=== PATIENT | male | born 1945 | race Caucasian/White ===

== ENCOUNTER → 2017-12-16 | Outpatient (CLI) | payer BC ==
[~2017-12-16] MED LIST: ACET-1256 PO; ASPI81TA28 PO; BUPR-83 PO; BUTA1CAP17 PO; CALC600T36 PO; CHOL2000 PO; CLR10 PO; COEN200C17 PO; DICL-201 PO; DILT-115 PO; LPR50X PO; MULT-506 PO; OMEG10007 PO; ONDA4TAB10 SL; POTA10TA32 PO; PRLSR20 PO; REDCAP2 PO; SNG10 PO; SYMIN INH; TERA5CAP PO; TIZA4CAP PO; TOPI100T20 PO; VNTHFA/IN INH; VTME100 PO
[2017-12-16 13:57] LABS: BLOOD UREA NITROGEN 27 mg/dl (7-18); CREATININE 0.98 mg/dl (0.60-1.40)
== END | disposition home or self-care (01) ==
LOC: C.LAB 12:18
PROVIDERS: ATTEND Psychiatry & Neurology Neurology
DX: E11.9 Type 2 diabetes mellitus without complications (principal); R90.89 Other abnormal findings on diagnostic imaging of central nervous system

== ENCOUNTER 2021-03-01 14:47 | Inpatient (IN) ==
[2021-03-01] MEDS ORDERED: cefTRIAXone SODIUM 1,000 MG/50 ML BAG IV STA (15:12)
[2021-03-01] MEDS ORDERED: SODIUM CHLORIDE 0.9% 1000ML 2,000 ML IV ONE (15:12)
--- NOTE | 2021-03-01 15:21 | Emergency Department Note ---
Impression & Plan Sepsis, Pneumonia, Confusion ED Provider Note NAME: MANDI TILLMAN AGE: 75 SEX: M : 1945 ARRIVES VIA: Walk-In INFORMANT: Patient, ED PROVIDER(S): Rohith Knowles DO CHIEF COMPLAINT: Confusion, trouble walking HPI: Patient is a 75-year-old male who presents to ER for dizziness. Patient has been feeling weak and rundown for the past 5 days. Patient notes that he did fall and hit his head about 7 days ago. He had a mild headache then. He de nies any headache or change in vision. No neck pain. No chest pain shortness of breath. He admits to belly pain and nausea. Denies any dysuria urgency or frequency. No rashes or open wounds. He notes he cannot ambulate and he has to hold onto something as he feels so dizzy. ROS: See above HPI for pertinent positives & negatives. A total of 10 systems reviewed and were otherwise negative. PAST MEDICAL HISTORY:See Below PAST SURGICAL HISTORY:See Below FAMILY HISTORY:See Below SOCIAL HISTORY:See Below HOME MEDICATIONS:See Below ALLERGIES:See Below VITALS:See Below PHYSICAL EXAMINATION: GENERAL: Sitting up in bed, alert, well appearing, well nourished, no distress, non-toxic EYE EXAM: normal conjunctiva. PERRL and EOM's grossly intact. OROPHARYNX: no exudate, no erythema, lips, buccal mucosa, and tongue normal and mucous membranes are moist NECK: supple, no nuchal rigidity, no adenopathy, non-tender LUNGS: Clear to auscultation. Normal chest wall mechanics HEART: no murmurs, S1 normal and S2 normal ABDOMEN: abdomen soft, non-tender, normo-active bowel sounds, no masses, no rebound or guarding. BACK: Back is symmetrical on inspection and there is no deformity, no midline tenderness, no CVA tenderness. SKIN: no rashes and no bruising UPPER EXTREMITIES: upper extremities are grossly normal. LOWER EXTREMITIES: No pitting edema. NEURO EXAM: Normal sensorium, cranial nerves II-XII intact, normal speech, no weakness of arms, no weakness of legs. No drift. Finger to nose intact. Gross sensation intact. MEDICAL DECISION MAKING: Patient is a 75-year-old male who presents to the ER for confusion, weakness and fevers. IV was established blood was obtained. He is found to be tachycardic and febrile. Labs show no significant leukocytosis or anemia. INR was unremarkable. BMP along with LFTs bilirubin lactate and troponin was negative. CT head chest x-ray and CT abdomen pelvis were consistent with a right-sided pneumonia. He was given IV Rocephin fluids and azithromycin. Patient was updated bedside. Discussed the hospitalist admitted for further work-up. Triage Nursing notes reviewed. Limited review of prior medical records performed Vital Signs: reviewed and remarkable for HTN and fever Differential diagnosis: Differential diagnoses includes but is not limited to toxic, metabolic, infectious, traumatic, cardiac, neurologic, hematologic, psychiatric and inflammatory etiologies. ER treatment provided: See below Diagnostics interpreted by me: ECG: Sinus tachycardia rate of 104 with a first-degree AV block Poor baseline T wave inversion in the septal leads along with ST depressions which are new compared to previous Cardiac Monitoring: An order was placed for continuous cardiac monitoring. The monitor shows a rate of 82 with sinus rhythm. Laboratory studies: As stated above and show below. Imaging studies: CT abdomen pelvis is unremarkable Portable AP upright 1 view the chest shows right-sided pneumonia CT head was negative Consultation(s): Discussed with the hospitalist for further evaluation Procedures: none Critical Care: None Past Med/Surg History Medical History Arthritis Asthma Cognitive complaints Diabetes Diabetes mellitus, type 2 DIET MANAGED Hyperlipidemia Hypertension Hypertension Hypertension Lumbar radiculopathy Migraine Osteoarthritis Peripheral neuropathy SOB (shortness of breath) on exertion Tremor Type 2 diabetes mellitus Surgical History Cancer PROSTATE-REMOVAL 20 YRS AGO Fusion of spine CERVICAL H/O elbow surgery H/O prostatectomy History of bronchoscopy History of colonoscopy History of lobectomy of lung RIGHT MIDDLE LOBE-BENIGN History of surgery on arm LEFT ELBOW-TENDON SURG Status post lung surgery Family History Father Diabetes Cardiac disorder Unknown Hypertension Mother Cardiac disorder Social History Smoking Status: Former smoker Tobacco Type: Cigarettes Second Hand Exposure: No; Hx Alcohol Use: Yes Alcohol type: beer, wine and hard liquor Hx Substance Use: No Preferred Language: Indian Communication Ability: Effective Maintenance Dispatcher Required: No Beliefs That Will Affect Care: None Current Living Situation: Spouse Feels Safe at Home: Yes Assistive Devices: Cane, Glasses and Hearing Aid - Bilateral Allergies Allergies Allergy/AdvReac Type Severity Reaction Status Date / Time Penicillins Allergy Severe SWELLING, Verified 03/01/21 17:28 TROUBLE BREATHING lovastatin Allergy Unknown PT DOESN'T Verified 03/01/21 17:28 REMEMBER REACTION-NAUSEA? simvastatin Allergy Unknown PT DOESN'T Verified 03/01/21 17:28 REMEMBER REACTION-NAUSEA? lisinopril Allergy Unknown Verified 03/01/21 17:28 Etsrtev-Vlr-Asa Reductase AdvReac Unknown NAUSEA Verified 03/01/21 17:28 Inhibitor diazepam AdvReac lethargy Verified 03/01/21 17:28 losartan AdvReac Dizziness Verified 03/01/21 17:28 fluvastatin Allergy Unknown Unknown Uncoded 03/01/21 17:28 Mevacor TABS Allergy Unknown Unknown Uncoded 03/01/21 17:28 Home Meds Home Medications Medication Instructions Recorded Confirmed Fish Oil Cap 1,400 mg PO QID 03/01/21 03/01/21 atorvastatin 10 mg PO HS 03/01/21 03/01/21 budesonide-formoterol 2 puff INHALATION BID 03/01/21 03/01/21 bupropion HCl 100 mg PO BID 03/01/21 03/01/21 coenzyme Q10 400 mg PO DAILY 03/01/21 03/01/21 diltiazem HCl 240 mg PO DAILY 03/01/21 03/01/21 docusate sodium 100 mg PO BID PRN 03/01/21 03/01/21 ezetimibe [Zetia] 5 mg PO DAILY 03/01/21 03/01/21 gabapentin 200 mg PO HS 03/01/21 03/01/21 loratadine [Claritin] 10 mg PO DAILY PRN 03/01/21 03/01/21 metoprolol tartrate 50 mg PO BID 03/01/21 03/01/21 montelukast 10 mg PO DAILY 03/01/21 03/01/21 multivitamin 1 tab PO DAILY 03/01/21 03/01/21 omeprazole 40 mg PO DAILY 03/01/21 03/01/21 spironolactone 12.5 mg PO QPM 03/01/21 03/01/21 spironolactone 25 mg PO QAM 03/01/21 03/01/21 terazosin 10 mg PO HS 03/01/21 03/01/21 tizanidine 4 mg PO QID PRN 03/01/21 03/01/21 vitamin E 400 unit PO DAILY 03/01/21 03/01/21 Results & Data (ED) Vital Signs Vital Signs - 24 hr 03/01/21 14:50 03/01/21 15:04 03/01/21 15:15 Temperature 38.2 C H Temperature Source Temporal Artery Scan Pulse Rate 83 106 H Pulse Rate from SpO2 Sensor Respiratory Rate 18 20 Respiratory Effort / Characteristics Non-Labored Spontaneous Non-Labored Spontaneous Respiratory Depth Normal Respiratory Pattern Regular Blood Pressure 163/70 H 176/96 H Blood Pressure Mean 101 122 Blood Pressure Position Sitting Pulse Oximetry 93 97 Oxygen Delivery Method Room Air Room Air Sepsis Recent Fever Within 48 Hours No Sepsis New/Unexplained Change in Mental Status N/A Sepsis Action Taken by Nursing No Action Required 03/01/21 15:41 03/01/21 15:43 03/01/21 16:33 Temperature Temperature Source Pulse Rate 105 H Pulse Rate from SpO2 Sensor 105 H Respiratory Rate 28 H Respiratory Effort / Characteristics Non-Labored Spontaneous Respiratory Depth Respiratory Pattern Blood Pressure 179/106 H Blood Pressure Mean 130 Blood Pressure Position Pulse Oximetry 97 94 Oxygen Delivery Method Room Air Sepsis Recent Fever Within 48 Hours Sepsis New/Unexplained Change in Mental Status Sepsis Action Taken by Nursing 03/01/21 16:35 03/01/21 17:00 03/01/21 17:02 Temperature 38.2 C H Temperature Source Oral Pulse Rate 107 H 106 H 107 H Pulse Rate from SpO2 Sensor 106 H 107 H 107 H Respiratory Rate 20 20 19 Respiratory Effort / Characteristics Respiratory Depth Respiratory Pattern Blood Pressure 166/117 H 162/99 H 162/99 H Blood Pressure Mean 133 120 120 Blood Pressure Position Pulse Oximetry 93 92 91 Oxygen Delivery Method Sepsis Recent Fever Within 48 Hours Sepsis New/Unexplained Change in Mental Status Sepsis Action Taken by Nursing Laboratory Data Result diagrams: 03/01/21 15:15 03/01/21 15:15 Lab Results 03/01/21 03/01/21 03/01/21 Range/Units 15:15 15:15 15:15 WBC 9.98 (4.8-10.8) K/uL RBC 4.17 L (4.7-6.1) M/uL Hgb 14.1 (14.0-18.0) g/dL Hct 40.5 L (42-52) % MCV 97.1 (80-100) fL MCH 33.8 (25-34) pg MCHC 34.8 (32-36) g/dL RDW Std Deviation 46.7 H (36.4-46.3) fL RDW Coeff of Roni 13.2 (11.5-14.5) % Plt Count 188 (130-400) K/uL MPV 10.7 H (7.4-10.4) fL Immature Gran % (Auto) 0.2 % Neut % (Auto) 79.4 % Lymph % (Auto) 6.1 % Chilton % (Auto) 13.9 % Eos % (Auto) 0.2 % Baso % (Auto) 0.2 % Neut # (Auto) 7.92 H (1.4-6.5) K/uL Lymph # (Auto) 0.61 L (1.2-3.4) K/uL Chilton # (Auto) 1.39 H (0.11-0.59) K/uL Eos # (Auto) 0.02 (0-0.5) K/uL Baso # (Auto) 0.02 (0-0.2) K/uL Immature Gran # (Auto) 0.02 (0.00-0.02) K/uL PT 10.3 (9.0-12.0) Seconds INR 1.0 (0.9-1.1) APTT 27.5 (21.0-31.0) Seconds PTT Ratio 1.0 Sodium 134 L (136-145) mmol/L Potassium 3.9 (3.5-5.1) mmol/L Chloride 100 (98-107) mmol/L Carbon Dioxide 25 (21-32) mmol/L Anion Gap 10.0 (3-11) BUN 16 (7-18) mg/dl Creatinine 0.83 (0.6-1.4) mg/dl Est Cr Clr Drug Dosing Not Reportable Est GFR ( Amer) 100.5 ml/min Est GFR (Non-Af Amer) 86.7 ml/min BUN/Creatinine Ratio 19.2 (10-20) Glucose 147 H (70-99) mg/dl Lactate (0.4-2.0) mmol/L Calcium 9.1 (8.5-10.1) mg/dl Magnesium 1.8 (1.8-2.4) mg/dl Total Bilirubin 0.9 (0.2-1) mg/dl AST 18 (15-37) U/L ALT 32 (12-78) U/L Alkaline Phosphatase 48 (45-117) U/L Troponin I < 0.015 (0-0.045) ng/ml Total Protein 7.4 (6.4-8.2) gm/dl Albumin 3.3 L (3.4-5.0) gm/dl Globulin 4.1 H (2.5-4.0) gm/dl Albumin/Globulin Ratio 0.8 L (0.9-2) Procalcitonin (0-0.5) ng/ml Urine Color Urine Appearance (Clear) Urine pH (4.5-7.5) Ur Specific Hagan (1.000-1.030) Urine Protein (Negative) Urine Glucose (UA) (Negative) Urine Ketones (Negative) Urine Blood (Negative) Urine Nitrite (Negative) Urine Bilirubin (Negative) Urine Urobilinogen (Negative) Ur Leukocyte Esterase (Negative) Urine WBC (Auto) (0-5) /hpf Urine RBC (Auto) (0-4) /hpf U Hyaline Cast (Auto) (0-5) /lpf U Epithel Cells (Auto) (0-5) /lpf Urine Bacteria (Auto) (Negative) COVID-19 Eval Order SARS-CoV-2 (PCR) (Negative) 03/01/21 03/01/21 03/01/21 Range/Units 15:15 15:15 15:24 WBC (4.8-10.8) K/uL RBC (4.7-6.1) M/uL Hgb (14.0-18.0) g/dL Hct (42-52) % MCV (80-100) fL MCH (25-34) pg MCHC (32-36) g/dL RDW Std Deviation (36.4-46.3) fL RDW Coeff of Roni (11.5-14.5) % Plt Count (130-400) K/uL MPV (7.4-10.4) fL Immature Gran % (Auto) % Neut % (Auto) % Lymph % (Auto) % Chilton % (Auto) % Eos % (Auto) % Baso % (Auto) % Neut # (Auto) (1.4-6.5) K/uL Lymph # (Auto) (1.2-3.4) K/uL Chilton # (Auto) (0.11-0.59) K/uL Eos # (Auto) (0-0.5) K/uL Baso # (Auto) (0-0.2) K/uL Immature Gran # (Auto) (0.00-0.02) K/uL PT (9.0-12.0) Seconds INR (0.9-1.1) APTT (21.0-31.0) Seconds PTT Ratio Sodium (136-145) mmol/L Potassium (3.5-5.1) mmol/L Chloride (98-107) mmol/L Carbon Dioxide (21-32) mmol/L Anion Gap (3-11) BUN (7-18) mg/dl Creatinine (0.6-1.4) mg/dl Est Cr Clr Drug Dosing Est GFR ( Amer) ml/min Est GFR (Non-Af Amer) ml/min BUN/Creatinine Ratio (10-20) Glucose (70-99) mg/dl Lactate 1.0 (0.4-2.0) mmol/L Calcium (8.5-10.1) mg/dl Magnesium (1.8-2.4) mg/dl Total Bilirubin (0.2-1) mg/dl AST (15-37) U/L ALT (12-78) U/L Alkaline Phosphatase (45-117) U/L Troponin I (0-0.045) ng/ml Total Protein (6.4-8.2) gm/dl Albumin (3.4-5.0) gm/dl Globulin (2.5-4.0) gm/dl Albumin/Globulin Ratio (0.9-2) Procalcitonin < 0.05 (0-0.5) ng/ml Urine Color Dark Yellow Urine Appearance Clear (Clear) Urine pH 7.0 (4.5-7.5) Ur Specific Hagan 1.024 (1.000-1.030) Urine Protein 1+ H (Negative) Urine Glucose (UA) Negative (Negative) Urine Ketones Trace H (Negative) Urine Blood Negative (Negative) Urine Nitrite Negative (Negative) Urine Bilirubin Negative (Negative) Urine Urobilinogen Positive H (Negative) Ur Leukocyte Esterase Negative (Negative) Urine WBC (Auto) 1-5 (0-5) /hpf Urine RBC (Auto) 5-10 H (0-4) /hpf U Hyaline Cast (Auto) 0 (0-5) /lpf U Epithel Cells (Auto) 5-10 H (0-5) /lpf Urine Bacteria (Auto) Negative (Negative) COVID-19 Eval Order SARS-CoV-2 (PCR) (Negative) 03/01/21 03/01/21 Range/Units 15:45 15:45 WBC (4.8-10.8) K/uL RBC (4.7-6.1) M/uL Hgb (14.0-18.0) g/dL Hct (42-52) % MCV (80-100) fL MCH (25-34) pg MCHC (32-36) g/dL RDW Std Deviation (36.4-46.3) fL RDW Coeff of Roni (11.5-14.5) % Plt Count (130-400) K/uL MPV (7.4-10.4) fL Immature Gran % (Auto) % Neut % (Auto) % Lymph % (Auto) % Chilton % (Auto) % Eos % (Auto) % Baso % (Auto) % Neut # (Auto) (1.4-6.5) K/uL Lymph # (Auto) (1.2-3.4) K/uL Chilton # (Auto) (0.11-0.59) K/uL Eos # (Auto) (0-0.5) K/uL Baso # (Auto) (0-0.2) K/uL Immature Gran # (Auto) (0.00-0.02) K/uL PT (9.0-12.0) Seconds INR (0.9-1.1) APTT (21.0-31.0) Seconds PTT Ratio Sodium (136-145) mmol/L Potassium (3.5-5.1) mmol/L Chloride (98-107) mmol/L Carbon Dioxide (21-32) mmol/L Anion Gap (3-11) BUN (7-18) mg/dl Creatinine (0.6-1.4) mg/dl Est Cr Clr Drug Dosing Est GFR ( Amer) ml/min Est GFR (Non-Af Amer) ml/min BUN/Creatinine Ratio (10-20) Glucose (70-99) mg/dl Lactate (0.4-2.0) mmol/L Calcium (8.5-10.1) mg/dl Magnesium (1.8-2.4) mg/dl Total Bilirubin (0.2-1) mg/dl AST (15-37) U/L ALT (12-78) U/L Alkaline Phosphatase (45-117) U/L Troponin I (0-0.045) ng/ml Total Protein (6.4-8.2) gm/dl Albumin (3.4-5.0) gm/dl Globulin (2.5-4.0) gm/dl Albumin/Globulin Ratio (0.9-2) Procalcitonin (0-0.5) ng/ml Urine Color Urine Appearance (Clear) Urine pH (4.5-7.5) Ur Specific Hagan (1.000-1.030) Urine Protein (Negative) Urine Glucose (UA) (Negative) Urine Ketones (Negative) Urine Blood (Negative) Urine Nitrite (Negative) Urine Bilirubin (Negative) Urine Urobilinogen (Negative) Ur Leukocyte Esterase (Negative) Urine WBC (Auto) (0-5) /hpf Urine RBC (Auto) (0-4) /hpf U Hyaline Cast (Auto) (0-5) /lpf U Epithel Cells (Auto) (0-5) /lpf Urine Bacteria (Auto) (Negative) COVID-19 Eval Order Covid19 at [facility] SARS-CoV-2 (PCR) NEGATIVE (Negative) Administered Medications Discontinued Medications Acetaminophen (Acetaminophen 500 Mg Tab) 1,000 mg PO NOW STA Stop: 03/01/21 17:05 Last Admin: 03/01/21 17:06 Dose: 1,000 mg Documented by: [id number] Azithromycin (Azithromycin 250 Mg Tab) 500 mg PO NOW ONE Stop: 03/01/21 16:16 Last Admin: 03/01/21 16:31 Dose: 500 mg Documented by: [id number] Sodium Chloride (Nss 1000ml) 2,000 mls @ 999 mls/hr IV .Q2H1M ONE Stop: 03/01/21 17:12 Last Infusion: 03/01/21 17:34 Dose: 0 mls/hr Documented by: [id number] Admin: 03/01/21 16:29 Dose: 999 mls/hr Documented by: [id number] Ceftriaxone Sodium (Rocephin) 1,000 mg in 50 mls @ 100 mls/hr IV NOW STA Stop: 03/01/21 15:41 Last Infusion: 03/01/21 17:03 Dose: 0 mls/hr Documented by: [id number] Admin: 03/01/21 16:31 Dose: 100 mls/hr Documented by: [id number] Ioversol (Optiray 320 100ml) 90 ml IV ONCE ONE Stop: 03/01/21 16:10 Last Admin: 03/01/21 16:10 Dose: 90 ml Documented by: [id number] Imaging Data Radiologist's Impression: Abdomen/Pelvis CT 03/01/21 15:12 CT abd pelvis IV con only CLINICAL HISTORY: fever COMPARISON STUDY: None. TECHNIQUE: A dose lowering technique was utilized adhering to the principles of ALARA. CT DOSE: 996.31 mGy.cm FINDINGS: Lower chest: Partially visualized heterogeneous opacity within right middle lobe might represent pneumonia or neoplasm. There is 7 mm nodule is seen within the right middle lobe (3/1). Evaluation of lung parenchyma is limited due to motion artifact. Liver: The contrast-enhanced liver is normal in size, contour, and attenuation. There is no intrahepatic biliary ductal dilatation. The hepatic veins and portal veins are patent. Gallbladder: Gallbladder is contracted which slightly limits evaluation. Distal aspect of gallbladder might content slightly peripherally calcified calculus and minimal surrounding fat stranding which might represent developing cholecystitis. Spleen: Normal in size and attenuation. Pancreas: Unremarkable. Adrenal glands: Unremarkable. Kidneys: There is symmetric renal cortical enhancement. The kidneys are normal in size without hydronephrosis. Nonobstructive nephrolithiasis is seen bilaterally. Bowel: Small hiatal hernia is seen. Bowel loops are nondilated. Appendix shows normal morphology and gas filled. Moderate amount of stool is seen within colonic loops. Peritoneum: There is no intraperitoneal free air or abdominal ascites. Vasculature: Abdominal aorta is normal in caliber, tortuous with extensive partially calcified plaques within its wall. Adenopathy: None. Pelvic viscera: Mild thickening urinary bladder wall. Prostate gland is surgically absent. Skeletal structures: Multilevel degenerative changes of the spine. Sclerotic lesion is seen within L3 vertebral body and might represent enostosis or blastic metastasis. Anterolisthesis of L5 on S1 is seen. IMPRESSION: 1. Infiltrative lesion within the right middle lobe which might represent pneumonia however 7 mm nodule could be sign of neoplastic process. Short-term follow-up with CT of the chest in 4-6 weeks is recommended to document resolution. 2. Contracted gallbladder with possible calculus and probably developing cholecystitis. Further evaluation with right upper quadrant ultrasound might be considered for further characterization. 3. Small hiatal hernia. 4. Nonobstructive nephrolithiasis is seen bilaterally. 5. Normal appendix. 6. Status post prostatectomy. Mild thickening of urinary bladder wall. Questionable sclerotic lesion within the lumbar spine might represent blastic metastasis or enostosis. Please correlate above-mentioned findings was prior history. 7. Atherosclerosis ACT 112: Negative or not required by law. The above report was generated using voice recognition software. It may contain grammatical, syntax or spelling errors. Electronically signed by: Allison Hugo DO 03/01/2021 4:47 PM Chest X-Ray 03/01/21 15:12 XR chest 1V portable CLINICAL HISTORY: SEPSIS COMPARISON STUDY: None FINDINGS: No pneumothorax. No pleural effusion. Linear atelectasis is seen at the left base. Hazy opacity seen involving right mid to lower lung region and might represent pneumonia. Cardiomediastinal silhouette is within normal limits in size. No significant pulmonary vascular congestion.. Osseous structures: Mild degenerative changes of the spine. IMPRESSION: 1. Infiltrative lesion involving the right mid to lower lung likely represent pneumonia. 2. Atelectasis at the left base. ACT 112: Negative or not required by law. The above report was generated using voice recognition software. It may contain grammatical, syntax or spelling errors. Electronically signed by: Allison Hugo DO 03/01/2021 3:[address] 03/01/21 15:12 CT head/brain wo con CLINICAL HISTORY: fall COMPARISON STUDY: No previous studies for comparison. TECHNIQUE: Axial CT of the brain is performed from the vertex to the skull base. IV contrast was not administered for this examination. A dose lowering technique was utilized adhering to the principles of ALARA. CT DOSE: 537.48 mGy.cm FINDINGS: No acute intracranial hemorrhage, no midline shift or space occupying lesions. Hannah-white matter differentiation is preserved. There are patchy white matter hypodensities likely on a small vessel basis. Atrophic changes of brain parenchyma are seen and associated with ex vacuo dilatation of ventricles. No acute depressed skull fracture seen. Visualized paranasal sinuses and mastoid air cells are patent and well-aerated. IMPRESSION: No acute intracranial hemorrhage, no midline shift or space occupying lesions. Chronic small vessel ischemia. Atrophic changes of brain parenchyma associated with ex vacuo dilatation of ventricles. ACT 112: Negative or not required by law. The above report was generated using voice recognition software. It may contain grammatical, syntax or spelling errors. Electronically signed by: Allison Hugo DO 03/01/2021 4:16 PM Discharge Plan Visit Data Chief Complaint: Neuro Symptoms/Deficit Stated Complaint: DIZZY,LACK OF BALANCE,WEAK ED Provider: Rohith Knowles Discharge Problem: Sepsis, Pneumonia, Confusion Discharge Problem: Sepsis Qualifiers: Sepsis type: sepsis due to unspecified organism Sepsis acute organ dysfunction status: unspecified Qualified Code(s): A41.9 - Sepsis, unspecified organism Pneumonia Qualifiers: Pneumonia type: due to unspecified organism Laterality: unspecified laterality Lung location: unspecified part of lung Qualified Code(s): J18.9 - Pneumonia, unspecified organism
[2021-03-01 15:35] LABS: Basophils # (auto) 0.02 K/uL (0-0.2); Basophils % (auto) 0.2 %; Eosinophils # (auto) 0.02 K/uL (0-0.5); Eosinophils % (auto) 0.2 %; Hematocrit (blood only) 40.5 % (42-52); Hemoglobin 14.1 g/dL (14.0-18.0); Immature Granulocytes # (auto) 0.02 K/uL (0.00-0.02); Immature Granulocytes % (auto) 0.2 %; Lymphocytes # (auto) 0.61 K/uL (1.2-3.4); Lymphocytes % (auto) 6.1 %; Mean Corpuscular Hemoglobin 33.8 pg (25-34); Mean Corpuscular Hgb Conc 34.8 g/dL (32-36); Mean Corpuscular Volume 97.1 fL (80-100); Mean Platelet Volume 10.7 fL (7.4-10.4); Monocytes # (auto) 1.39 K/uL (0.11-0.59); Monocytes % (auto) 13.9 %; Neutrophils # (auto) 7.92 K/uL (1.4-6.5); Neutrophils % (auto) 79.4 %; Platelet Count 188 K/uL (130-400); RDW Coefficient of Variation 13.2 % (11.5-14.5); RDW Standard Deviation 46.7 fL (36.4-46.3); Red Blood Count 4.17 M/uL (4.7-6.1); White Blood Count 9.98 K/uL (4.8-10.8)
[2021-03-01 15:46] LABS: Partial Thromboplastin Time 27.5 Seconds (21.0-31.0); Prothrombin Time 10.3 Seconds (9.0-12.0)
[2021-03-01 15:49] LABS: Appearance Urine Clear (Clear); Bacteria Urine Automated Negative (Negative); Bilirubin Urine Negative (Negative); Blood Urine Negative (Negative); Cast Urine Automated 0 /lpf (0-5); Color Urine Dark Yellow; Glucose Urine UA Negative (Negative); Ketones Urine Trace (Negative); Leukocyte Esterase Urine Negative (Negative); Nitrite Urine Negative (Negative); Protein Urine 1+ (Negative); Specific Gravity Urine 1.024 (1.000-1.030); Urobilinogen Urine Positive (Negative)
--- NOTE | 2021-03-01 15:49 | XRay Report ---
XR chest 1V portable CLINICAL HISTORY: SEPSIS COMPARISON STUDY: None FINDINGS: No pneumothorax. No pleural effusion. Linear atelectasis is seen at the left base. Hazy opacity seen involving right mid to lower lung conchita on and might represent pneumonia. Cardiomediastinal silhouette is within normal limits in size. No significant pulmonary vascular congestion.. Osseous structures: Mild degenerative changes of the spine. IMPRESSION: 1. Infiltrative lesion involving the right mid to lower lung likely represent pneumonia. 2. Atelectasis at the left base. ACT 112: Negative or not required by law. The above report was generated using voice recognition software. It may contain grammatical, syntax o r spelling errors. Electronically signed by: Allison Hugo DO 03/01/2021 3:48 PM
[2021-03-01 15:57] LABS: Alanine Aminotransferase 32 U/L (12-78); Albumin Level 3.3 gm/dl (3.4-5.0); Aspartate Aminotransferase 18 U/L (15-37); BUN Creatinine Ratio 19.2 (10-20); Blood Urea Nitrogen 16 mg/dl (7-18); Calcium 9.1 mg/dl (8.5-10.1); Carbon Dioxide 25 mmol/L (21-32); Chloride 100 mmol/L (98-107); Est GFR (African American) 100.5 ml/min; Est GFR (Non-African American) 86.7 ml/min; Glucose 147 mg/dl (70-99); Magnesium 1.8 mg/dl (1.8-2.4); Potassium 3.9 mmol/L (3.5-5.1); Sodium 134 mmol/L (136-145)
[2021-03-01 16:02] LABS: Albumin Globulin Ratio 0.8 (0.9-2); Alkaline Phosphatase 48 U/L (45-117); Bilirubin,Total 0.9 mg/dl (0.2-1); Globulin 4.1 gm/dl (2.5-4.0); Total Protein 7.4 gm/dl (6.4-8.2); Troponin I < 0.015 ng/ml (0-0.045)
[2021-03-01] MEDS ORDERED: OPTIRAY 320 100ml IV ONE (16:09)
[2021-03-01] MEDS ORDERED: AZITHROMYCIN 250 MG TAB PO ONE (16:15)
--- NOTE | 2021-03-01 16:18 | CT Scan Report ---
CT head/brain wo con CLINICAL HISTORY: fall COMPARISON STUDY: No previous studies for comparison. TECHNIQUE: Axial CT of the brain is performed from the vertex to the skull base. IV contrast was not administered for this examination. A dose lowering technique was utilized adhering to the principles of ALARA. CT DOSE: 537.48 mGy.cm FINDINGS: No acute intracranial hemorrhage, no midline shift or space occupying lesions. Hannah-white matter differentiation is preserved. There are patchy white matter hypodensities likely on a small vessel basis. Atrophic changes of brain parenchyma are seen and associated with ex vacuo dilatation of ventricles. No acute depressed skull fracture seen. Visualized paranasal sinuses and mastoid air cells are patent and well-aerated. IMPRESSION: No acute intracranial hemorrhage, no midline shift or space occupying lesions. Chronic small vessel ischemia. Atrophic changes of brain parenchyma associated with ex vacuo dilatation of ventricles. ACT 112: Negative or not required by law. The above report was generated using voice recognition software. It may contain grammatical, syntax o r spelling errors. Electronically signed by: Allison Hugo DO 03/01/2021 4:16 PM
--- NOTE | 2021-03-01 16:48 | CT Scan Report ---
CT abd pelvis IV con only CLINICAL HISTORY: fever COMPARISON STUDY: None. TECHNIQUE: A dose lowering technique was utilized adhering to the principles of ALARA. CT DOSE: 996.31 mGy.cm FINDINGS: Lower chest: Partially visualized heterogeneous opacity within right middle lobe might represent pneu monia or neoplasm. There is 7 mm nodule is seen within the right middle lobe (3/1). Evaluation of sia g parenchyma is limited due to motion artifact. Liver: The contrast-enhanced liver is normal in size, contour, and attenuation. There is no intrahepa tic biliary ductal dilatation. The hepatic veins and portal veins are patent. Gallbladder: Gallbladder is contracted which slightly limits evaluation. Distal aspect of gallbladder might content slightly peripherally calcified calculus and minimal surrounding fat stranding which m ight represent developing cholecystitis. Spleen: Normal in size and attenuation. Pancreas: Unremarkable. Adrenal glands: Unremarkable. Kidneys: There is symmetric renal cortical enhancement. The kidneys are normal in size without hydron ephrosis. Nonobstructive nephrolithiasis is seen bilaterally. Bowel: Small hiatal hernia is seen. Bowel loops are nondilated. Appendix shows normal morphology and gas filled. Moderate amount of stool is seen within colonic loops. Peritoneum: There is no intraperitoneal free air or abdominal ascites. Vasculature: Abdominal aorta is normal in caliber, tortuous with extensive partially calcified plaque s within its wall. Adenopathy: None. Pelvic viscera: Mild thickening urinary bladder wall. Prostate gland is surgically absent. Skeletal structures: Multilevel degenerative changes of the spine. Sclerotic lesion is seen within L3 vertebral body and might represent enostosis or blastic metastasis. Anterolisthesis of L5 on S1 is s een. IMPRESSION: 1. Infiltrative lesion within the right middle lobe which might represent pneumonia however 7 mm no dule could be sign of neoplastic process. Short-term follow-up with CT of the chest in 4-6 weeks is r ecommended to document resolution. 2. Contracted gallbladder with possible calculus and probably developing cholecystitis. Further eval uation with right upper quadrant ultrasound might be considered for further characterization. 3. Small hiatal hernia. 4. Nonobstructive nephrolithiasis is seen bilaterally. 5. Normal appendix. 6. Status post prostatectomy. Mild thickening of urinary bladder wall. Questionable sclerotic lesion within the lumbar spine might represent blastic metastasis or enostosis. Please correlate above-ment ioned findings was prior history. 7. Atherosclerosis ACT 112: Negative or not required by law. The above report was generated using voice recognition software. It may contain grammatical, syntax o r spelling errors. Electronically signed by: Allison Hugo DO 03/01/2021 4:47 PM
[2021-03-01] MEDS ORDERED: ACETAMINOPHEN 500 MG TAB PO STA (17:04)
[2021-03-01] MEDS ORDERED: ACETAMINOPHEN 500 MG TAB ONE (17:05)
--- NOTE | 2021-03-01 17:12 | History & Physical Report ---
Date of Service March 01, 2021 Assessment & Plan (1) Sepsis: Meet sepsis criteria, present on admission Admit to monitored bed Patient not hypotensive, will treat with mild fluid hydration and Serum lactate is normal Suspect source is right sided CAP, as below (2) Pneumonia: Right middle/lower lobe pneumonia seen on chest x-ray, questionable 7 mm nodule seen on CT of the abdomen/pelvis Patient was given Rocephin and Zithromax in the emergency room, will continue this for now Blood and sputum culture if possible PT/OT for deconditioning Nasal cannula O2 to keep O2 sat above 92% (3) Type 2 diabetes mellitus: Noted on old record but patient is not on diabetic medications per recent patient neurology note Will check hemoglobin A1c Low sliding scale insulin with meals (4) Hypertension: Blood pressure elevated on presentation Continue diltiazem, metoprolol as ordered hold off on spironolactone for now both should be restarted prior to discharge (5) Hypercholesteremia: Patient is on Zetia, will continue (6) Migraine: Patient neurology notes reviewed, will continue gabapentin and topiramate as per outpatient dosing History of Present Illness Chief Complaint: generalized weakness Primary Care Provider: Dea Waldron PA-C This is a 75-year-old male with past medical history of type 2 diabetes mellitus, hypercholesterolemia, migraine, and mild memory loss that presents today complaining of generalized weakness. Patient is accompanied by his were both pleasant and good historians. Patient tells me has been having symptoms for approximately 7-8 days. He is unclear exactly when things started but at first noted some mild weakness. He was having difficulty ambulating long distances as he felt that his legs would give out on him. He denied any chest pain or palpitations but over the past few days noted some worsening dyspnea on exertion. He denied any shortness of breath at rest. He has weakness continue to worsen to the point that he actually had a fall 2 days ago, striking his head but he did not lose consciousness. He has had some mild cough with minimal production, mostly white sputum. Today the notes that the patient seemed to be transiently confused at times and was having trouble staying awake. The patient noted some dry heaves this morning as well, he does admit to some nausea and diminished appetite but denies vomiting, constipation, or diarrhea. Patient also started to display some rigors, the combination of the symptoms prompted the to bring the patient to the emergency room for further evaluation. At the time my evaluation, the patient was febrile at 38.2 C. His O2 sat was 92-93% on room air. He did appear to be rigorous and was given extra warmed galina nkets. He did not appear to be in any significant cardiopulmonary distress and was able to relate his history without much confusion. Allergies Allergy/AdvReac Type Severity Reaction Status Date / Time Penicillins Allergy Severe SWELLING, Verified 01/26/19 09:24 TROUBLE BREATHING lovastatin Allergy Unknown PT DOESN'T Verified 01/26/19 10:05 REMEMBER REACTION-NAUSEA? simvastatin Allergy Unknown PT DOESN'T Verified 01/26/19 10:05 REMEMBER REACTION-NAUSEA? Ozeexab-Hpu-Qay Reductase AdvReac Unknown NAUSEA Verified 01/26/19 09:24 Inhibitor fluvastatin Allergy Unknown Uncoded 06/06/19 10:56 Mevacor TABS Allergy Unknown Uncoded 06/06/19 10:56 Past Med/Surg History Medical History Arthritis Asthma Cognitive complaints Diabetes Diabetes mellitus, type 2 DIET MANAGED Hyperlipidemia Hypertension Hypertension Hypertension Lumbar radiculopathy Migraine Osteoarthritis Peripheral neuropathy SOB (shortness of breath) on exertion Tremor Type 2 diabetes mellitus Surgical History Cancer PROSTATE-REMOVAL 20 YRS AGO Fusion of spine CERVICAL H/O elbow surgery H/O prostatectomy History of bronchoscopy History of colonoscopy History of lobectomy of lung RIGHT MIDDLE LOBE-BENIGN History of surgery on arm LEFT ELBOW-TENDON SURG Status post lung surgery Family History Father Diabetes Cardiac disorder Unknown Hypertension Mother Cardiac disorder Social History Smoking Status: Former smoker Tobacco Type: Cigarettes Second Hand Exposure: No; Hx Alcohol Use: Yes Alcohol type: beer, wine and hard liquor Hx Substance Use: No Preferred Language: Frisian Communication Ability: Effective [employer] Required: No Beliefs That Will Affect Care: None Current Living Situation: Spouse Feels Safe at Home: Yes Assistive Devices: Cane, Glasses and Hearing Aid - Bilateral Review of Systems Constitutional: + fever, + chills, + body aches, + fatigue, + malaise and + weakness; no weight loss and no weight gain Eyes: as per Subjective / HPI Respiratory: + cough, + dyspnea on exertion and + sputum production; no chest congestion, no dyspnea, no hemoptysis, no pain on inspiration and no pain with cough Cardiovascular: no chest pain, no orthopnea, no palpitations, no lightheadedness and no edema Gastrointestinal: + early satiety and + nausea; no abdominal pain, no vomiting, no pain with swallowing, no dysphagia, no constipation and no diarrhea/loose stools Genitourinary: no dysuria, no difficulty urinating, no urinary frequency and no urinary hesitancy Musculoskeletal: no back pain, no neck pain, no joint pain, no stiffness and no myalgia Integumentary: no rash Neurologic: + unsteadiness and + generalized weakness; no gait abnormality and no falls Endocrine: + fatigue; no polydipsia and no polyphagia Physical Exam Constitutional: cooperative and comfortable; no acute distress Neck: trachea midline, no thyromegaly Respiratory: normal respiratory effort; no respiratory distress and no labored breathing Auscultation: + diminished lung sounds and + rhonchi (minimal at R base); no crackles, no rales and no wheezes Cardiovascular: Rate/Rhythm: regular rate and regular rhythm Heart Sounds: normal S1 and normal S2; no murmur Extremities: no edema Gastrointestinal (Abdomen): Inspection/Auscultation: abdomen normal to inspection Percussion/Palpation: abdomen soft; abdomen nontender, no guarding, abdomen not rigid and no hepatosplenomegaly Musculoskeletal: no cyanosis or clubbing, extremities motor strength 5/5 Skin: no rashes, warm and dry Neurologic: PERRL, EOMI, accommodation nl, no face palsy, no dysarthria Psychiatric: A+Ox3, euthymic affect Results & Data Results & Data ([facility]) Vital Signs (Past 12 Hours) Vital Signs Temp Pulse Resp BP Pulse Ox 03/01/21 16:33 105 H 28 H 179/106 H 94 03/01/21 15:41 97 03/01/21 15:15 97 03/01/21 15:04 106 H 20 176/96 H 03/01/21 14:50 38.2 C H 83 18 163/[address] abd pelvis IV con only CLINICAL HISTORY: fever COMPARISON STUDY: None. TECHNIQUE: A dose lowering technique was utilized adhering to the principles of ALARA. CT DOSE: 996.31 mGy.cm FINDINGS: Lower chest: Partially visualized heterogeneous opacity within right middle lobe might represent pneumonia or neoplasm. There is 7 mm nodule is seen within the right middle lobe (3/1). Evaluation of lung parenchyma is limited due to motion artifact. Liver: The contrast-enhanced liver is normal in size, contour, and attenuation. There is no intrahepatic biliary ductal dilatation. The hepatic veins and portal veins are patent. Gallbladder: Gallbladder is contracted which slightly limits evaluation. Distal aspect of gallbladder might content slightly peripherally calcified calculus and minimal surrounding fat stranding which might represent developing cholecystitis. Spleen: Normal in size and attenuation. Pancreas: Unremarkable. Adrenal glands: Unremarkable. Kidneys: There is symmetric renal cortical enhancement. The kidneys are normal in size without hydronephrosis. Nonobstructive nephrolithiasis is seen bilaterally. Bowel: Small hiatal hernia is seen. Bowel loops are nondilated. Appendix shows normal morphology and gas filled. Moderate amount of stool is seen within colonic loops. Peritoneum: There is no intraperitoneal free air or abdominal ascites. Vasculature: Abdominal aorta is normal in caliber, tortuous with extensive partially calcified plaques within its wall. Adenopathy: None. Pelvic viscera: Mild thickening urinary bladder wall. Prostate gland is surgically absent. Skeletal structures: Multilevel degenerative changes of the spine. Sclerotic lesion is seen within L3 vertebral body and might represent enostosis or blastic metastasis. Anterolisthesis of L5 on S1 is seen. IMPRESSION: 1. Infiltrative lesion within the right middle lobe which might represent pneumonia however 7 mm nodule could be sign of neoplastic process. Short-term follow-up with CT of the chest in 4-6 weeks is recommended to document resolution. 2. Contracted gallbladder with possible calculus and probably developing cholecystitis. Further evaluation with right upper quadrant ultrasound might be considered for further characterization. 3. Small hiatal hernia. 4. Nonobstructive nephrolithiasis is seen bilaterally. 5. Normal appendix. 6. Status post prostatectomy. Mild thickening of urinary bladder wall. Questionable sclerotic lesion within the lumbar spine might represent blastic metastasis or enostosis. Please correlate above-mentioned findings was prior history. 7. Atherosclerosis ------ XR chest 1V portable CLINICAL HISTORY: SEPSIS COMPARISON STUDY: None FINDINGS: No pneumothorax. No pleural effusion. Linear atelectasis is seen at the left base. Hazy opacity seen involving right mid to lower lung region and might represent pneumonia. Cardiomediastinal silhouette is within normal limits in size. No significant pulmonary vascular congestion.. Osseous structures: Mild degenerative changes of the spine. IMPRESSION: 1. Infiltrative lesion involving the right mid to lower lung likely represent pneumonia. 2. Atelectasis at the left base. PG Care Time/CCT Total # of Minutes Spent Total Time Spent with Patient: Total time spent is greater than 50% in coordination of care (as documented) at patient's floor/unit and/or counseling patient: Coding Level of Care Code 78979 Initial Inpt Care Lvl 3 Diagnoses Sepsis A41.9 Pneumonia J18.9 Type 2 diabetes mellitus E11.9 Hypertension I10 Hypercholesteremia E78.00 Migraine G43.909
[2021-03-01] MEDS ORDERED: GLUCOSE 10 TABS/TUBE PO PRN (19:47)
[2021-03-01] MEDS ORDERED: DEXTROSE 50% 50 ML SYRINGE IV PRN (19:47)
[2021-03-01] MEDS ORDERED: ONDANSETRON INJ 2 MG/ML 2 ML VIAL IV PRN (19:47)
[2021-03-01] MEDS ORDERED: PANTOprazole 40 MG TAB PO STA (19:47)
[2021-03-01] MEDS ORDERED: CARBOHYDRATES FOR HYPOGLYCEMIA PO PRN (19:47)
[2021-03-01] MEDS ORDERED: GLUCOSE 40% GEL 15 GM TUBE PO PRN (19:47)
[2021-03-01] MEDS ORDERED: GLUCAGON FOR INJ 1 MG VIAL SQ PRN (19:47)
[2021-03-01] MEDS: buPROPion SR 100 MG TABCR PO SCH (20:57)
[2021-03-01] MEDS: METOPROLOL TARTRATE 50 MG TAB PO SCH (20:57)
[2021-03-01] MEDS: TOPIRAMATE 50 MG TAB PO SCH (20:58)
[2021-03-01] MEDS: ENOXAPARIN INJ 40 MG/0.4 ML SYR SQ SCH (20:58)
[2021-03-01] MEDS: MONTELUKAST SODIUM 10 MG TABLET PO SCH (20:59)
[2021-03-01] MEDS: GABAPENTIN 100 MG CAP PO SCH (20:59)
[2021-03-01] MEDS: SODIUM CHLORIDE 0.9% 1000ML 1,000 ML IV SCH (21:06)
[2021-03-01] MEDS: INSULIN ASPART 100 UNITS/ML 3 ML PEN SC SCH (21:11)
[2021-03-01] MEDS: ACETAMINOPHEN 325 MG TAB PO PRN (22:59)
[2021-03-02] MEDS: ALBUTEROL 0.083% NEBU SOLN 3 ML VIAL NEB PRN (06:33)
[2021-03-02 07:02] LABS: Basophils # (auto) 0.02 K/uL (0-0.2); Basophils % (auto) 0.2 %; Eosinophils # (auto) 0.02 K/uL (0-0.5); Eosinophils % (auto) 0.2 %; Hematocrit (blood only) 39.2 % (42-52); Hemoglobin 13.5 g/dL (14.0-18.0); Immature Granulocytes # (auto) 0.01 K/uL (0.00-0.02); Immature Granulocytes % (auto) 0.1 %; Lymphocytes # (auto) 0.65 K/uL (1.2-3.4); Lymphocytes % (auto) 7.7 %; Mean Corpuscular Hemoglobin 33.8 pg (25-34); Mean Corpuscular Hgb Conc 34.4 g/dL (32-36); Mean Platelet Volume 10.5 fL (7.4-10.4); Monocytes # (auto) 1.16 K/uL (0.11-0.59); Monocytes % (auto) 13.7 %; Neutrophils # (auto) 6.62 K/uL (1.4-6.5); Neutrophils % (auto) 78.1 %; Platelet Count 175 K/uL (130-400); RDW Coefficient of Variation 13.3 % (11.5-14.5); White Blood Count 8.48 K/uL (4.8-10.8)
[2021-03-02 07:35] LABS: Calcium 8.2 mg/dl (8.5-10.1); Creatinine Clr Calc Pharmacy 86.4 ml/min; Est GFR (Non-African American) 86.3 ml/min; Potassium 3.8 mmol/L (3.5-5.1)
[2021-03-02 07:36] LABS: Estimated Average Glucose 134 mg/dl; Hemoglobin A1C 6.3 % (4.5-5.6)
[2021-03-02] MEDS: INSULIN ASPART 100 UNITS/ML 3 ML PEN SC SCH ×4 (08:38→22:13)
[2021-03-02] MEDS: SODIUM CHLORIDE 0.9% 1000ML 1,000 ML IV SCH (08:38)
[2021-03-02] MEDS: TOPIRAMATE 50 MG TAB PO SCH ×2 (08:39→20:32)
[2021-03-02] MEDS: LORATADINE 10 MG TAB PO SCH (08:39)
[2021-03-02] MEDS: dilTIAZem HCL 240 MG CAPCR PO SCH (08:39)
[2021-03-02] MEDS: METOPROLOL TARTRATE 50 MG TAB PO SCH ×2 (08:39→20:31)
[2021-03-02] MEDS: buPROPion SR 100 MG TABCR PO SCH (08:39)
[2021-03-02] MEDS: EZETIMIBE 10 MG TABLET PO SCH (08:39)
[2021-03-02] MEDS: AZITHROMYCIN 500 MG in DEXTROSE 5% 250 ML IV SCH (08:42)
--- NOTE | 2021-03-02 09:30 | Hospitalist Progress Note ---
Date of Service March 02, 2021 Assessment & Plan (1) Delirium tremens: Start chlordiazepoxide JOSHUA taper. Ativan 1-3mg IV PRN per AWSS Discussed with ICU attending due to concern of worsening overnight given worsening delirium and sedation with Ativan/Chlordiazepoxide and will continue on PCU at the current time. Discontinue Wellbutrin due to increased risk of seizures. (2) Sepsis: Meet sepsis criteria, present on admission although possible ongoing fever secondary to alcohol withdrawal. Serum lactate is normal Suspect source is right sided CAP, despite negative procalcitonin No RUQ pain to suggest cholecystitis as noted on CT. (3) Pneumonia: Right middle/lower lobe pneumonia seen on chest x-ray, questionable 7 mm nodule seen on [address] of the abdomen/pelvis Continue Ceftriaxone and Azithromycin - Blood and sputum culture if possible PT/OT Nasal cannula O2 to keep O2 sat above 92% MRSA nose swab - given alcohol history will add Vancomycin IV pending positive/negative result (4) Type 2 diabetes mellitus: Noted on old record but patient is not on diabetic medications per recent patient neurology note HbA1c 6.3 Low sliding scale insulin with meals (5) Hypertension: Continue usual outpatient home medications with diltiazem, metoprolol and add back spironolactone. (6) Hypercholesteremia: Patient is on Zetia (7) Migraine: Patient neurology notes reviewed, will continue gabapentin and topiramate as per outpatient dosing (8) DVT prophylaxis: Lovenox 40mg SQ daily Admission and Anticipated Discharge Date Admission Date: March 01, 2021 Subjective Patient confirms history of 7 days of feeling unwell. Continued fevers this morning. Getting increasingly agitated throughout the morning. He reports drinking approximately 4 drinks of alcohol a day starting at 6 PM. 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 Usually drinks consist of 2 shots each. On previous hospitalizations he has avoided alcohol withdrawal by getting better after his operation. I explained extensively to his why this is not a good idea on this occasion as he is unable to self regulate his withdrawal given his current infection. Continued cough. No concern for aspiration. Last BM 2 days ago. No constipation. No abdominal pain or urinary Sx. He currently feels he is going through withdrawal as he is having tremors, getting agitated and his is noticed he has become more disorientated. Review of Systems Review of Systems: All systems reviewed & are unremarkable except as noted in HPI & below Physical Exam Constitutional: well developed, + acute distress (Appears agitated but not short of breath) and + ill appearing; + not well nourished Eyes: PERRL, conjunctivae normal, anicteric sclerae no nystagmus Respiratory: normal respiratory effort, lungs clear to auscultation Cardiovascular: RRR, no murmur, no edema Gastrointestinal (Abdomen): normal bowel sounds, soft, nontender, no hepatosplenomegaly Musculoskeletal: no cyanosis or clubbing, extremities motor strength 5/5 Skin: no rashes, warm and dry Neurologic: moves all extremities, awake and + confused; no focal motor deficits (no lateralizing deficit) Speech / Cognition: normal speech Motor/Sensory: + tremor; no pronator drift Psychiatric: Orientation: alert, oriented to person and oriented to time; + not oriented to place Genitourinary: no CVA tenderness Results & Data Results & [facility] ([facility]) Vital Signs (Past 12 Hours) Vital Signs Temp Pulse Pulse Resp BP Pulse Ox 03/02/21 07:20 39.1 C H 91 H 18 166/91 H 88 L 03/02/21 06:35 78 18 90 03/02/21 03:50 36.9 C 77 18 153/75 H 91 03/01/21 23:27 38.2 C H 75 18 172/68 H 94 03/01/21 23:24 64 03/01/21 22:00 113 H PG Care Time/CCT Total # of Minutes Spent Total Time Spent with Patient: Total time spent is greater than 50% in coding quality coordinator rdination of care (as documented) at patient's floor/unit and/or counseling patient: Coding Level of Care Code 99460 Subseq Hosp Care Lvl 3 Diagnoses Delirium tremens F10.231 Sepsis A41.9 Pneumonia J18.9 Type 2 diabetes mellitus E11.9 Hypertension I10 Hypercholesteremia E78.00 Migraine G43.909 DVT prophylaxis Z29.9
[2021-03-02] MEDS ORDERED: LORazepam 3 MG/6 ML VIAL IV PRN (11:31)
[2021-03-02] MEDS ORDERED: chlordiazePOXIDE ALCOHOL WITHDRAWL 25MG PO STA (11:31)
[2021-03-02] MEDS ORDERED: LORazepam 2 MG/4 ML VIAL IV PRN (11:31)
[2021-03-02] MEDS ORDERED: LORazepam 1 MG/2 ML VIAL IV PRN (11:31)
[2021-03-02] MEDS ORDERED: ATIVAN IV ALCOHOL WITHDRAWL IV PRN (11:31)
[2021-03-02] MEDS: LORazepam 2 MG/4 ML VIAL ONE ×2 (11:35→12:15)
[2021-03-02] MEDS: chlordiazePOXIDE HCl 25 MG CAP PO SCH ×2 (12:32→18:20)
[2021-03-02] MEDS: cefTRIAXone SODIUM 2,000 MG in DEXTROSE 5% 50 ML IV SCH (15:44)
[2021-03-02] MEDS: ACETAMINOPHEN 325 MG TAB PO PRN (15:45)
--- NOTE | 2021-03-02 16:18 | Electrocardiogram Report ---
Test Reason : Blood Pressure : / mmHG Vent. Rate : 104 BPM Atrial Rate : 104 BPM P-R Int : 222 ms QRS Dur : 094 ms QT Int : 328 ms P-R-T Axes : 061 -65 051 degrees QTc Int : 431 ms Poor data quality, interpretation may be adversely affected Sinus tachycardia with 1st degree A-V block with short run of atrial tachycardia Left axis deviation Incomplete right bundle branch block Abnormal ECG When compared with ECG of 03-MAY-2002 15:06, IN interval has increased Vent. rate has increased BY 53 BPM QRS axis Shifted left Confirmed by Joshua Aviles ([id number]) on 03/02/2021 4:18:43 PM Referred By: REFERRED SELF Confirmed By:Joshua Aviles
[2021-03-02] MEDS ORDERED: VANCOMYCIN CONSULT ACTIVE PRN (16:33)
[2021-03-02] MEDS ORDERED: VANCOMYCIN HCL 2,000 MG in SODIUM CHLORIDE 0.9% 500 ML IV ONE (17:00)
[2021-03-02] MEDS: GABAPENTIN 100 MG CAP PO SCH (20:31)
[2021-03-02] MEDS: MONTELUKAST SODIUM 10 MG TABLET PO SCH (20:31)
[2021-03-02] MEDS: ENOXAPARIN INJ 40 MG/0.4 ML SYR SQ SCH (20:32)
--- NOTE | 2021-03-02 20:58 | Pharmacy Report ---
Pharmacy Abx Dose Short Note - Date of Service March 02, 2021 - Assessment & Plan Assessment 75 year old M receiving IV Vancomycin, Azithromycin (not a consult), and Ceftriaxone (not a consult) for treatment of sepsis secondary to CAP Day # 1 of antimicrobial therapy. Plan Vancomycin * Give Vancomycin 2000mg (~23mg/kg) IV x 1 as a loading dose * Initiate Vancomycin 1000mg IV q8 as per AUC dosing nomogram * Goal trough level for pneumonia : 15 to 20 mcg/mL * No trough ordered at this time as unsure if Vancomycin will be continued given negative MRSA nasal swab; plan f/u with provider on 03/03 Pharmacy will continue to follow and will adjust dose/frequency as necessary. Thank you.
[2021-03-02] MEDS ORDERED: TERAZOSIN 10 MG PO SCH (21:00)
[2021-03-02] MEDS: SPIRONOLACTONE 12.5 MG TAB PO SCH (21:51)
[2021-03-02] MEDS: TERAZOSIN HCL 5 MG CAP PO SCH (21:51)
[2021-03-03] MEDS: chlordiazePOXIDE HCl 25 MG CAP PO SCH ×4 (01:09→20:18)
[2021-03-03] MEDS ORDERED: VANCOMYCIN HCL 1,000 MG in SODIUM CHLORIDE 0.9% 250 ML IV SCH (02:00)
[2021-03-03] MEDS: ACETAMINOPHEN 325 MG TAB PO PRN (02:04)
[2021-03-03 07:39] LABS: Basophils # (auto) 0.02 K/uL (0-0.2); Basophils % (auto) 0.3 %; Eosinophils # (auto) 0.05 K/uL (0-0.5); Eosinophils % (auto) 0.7 %; Hematocrit (blood only) 39.2 % (42-52); Hemoglobin 13.6 g/dL (14.0-18.0); Immature Granulocytes # (auto) 0.01 K/uL (0.00-0.02); Immature Granulocytes % (auto) 0.1 %; Lymphocytes # (auto) 0.86 K/uL (1.2-3.4); Mean Corpuscular Hgb Conc 34.7 g/dL (32-36); Mean Corpuscular Volume 95.1 fL (80-100); Mean Platelet Volume 10.7 fL (7.4-10.4); Monocytes # (auto) 1.11 K/uL (0.11-0.59); Monocytes % (auto) 15.5 %; Neutrophils # (auto) 5.12 K/uL (1.4-6.5); Neutrophils % (auto) 71.4 %; Platelet Count 173 K/uL (130-400); RDW Coefficient of Variation 12.9 % (11.5-14.5); RDW Standard Deviation 44.7 fL (36.4-46.3); Red Blood Count 4.12 M/uL (4.7-6.1); White Blood Count 7.17 K/uL (4.8-10.8)
[2021-03-03 08:00] LABS: Albumin Level 2.7 gm/dl (3.4-5.0); BUN Creatinine Ratio 13.5 (10-20); Calcium 8.8 mg/dl (8.5-10.1); Creatinine Clr Calc Pharmacy 83.6 ml/min; Potassium 3.8 mmol/L (3.5-5.1)
[2021-03-03 08:03] LABS: Albumin Globulin Ratio 0.6 (0.9-2); Bilirubin,Total 0.6 mg/dl (0.2-1); Globulin 4.3 gm/dl (2.5-4.0)
[2021-03-03] MEDS: LORATADINE 10 MG TAB PO SCH (08:36)
[2021-03-03] MEDS: METOPROLOL TARTRATE 50 MG TAB PO SCH ×2 (08:36→20:20)
[2021-03-03] MEDS: EZETIMIBE 10 MG TABLET PO SCH (08:36)
[2021-03-03] MEDS: dilTIAZem HCL 240 MG CAPCR PO SCH (08:36)
[2021-03-03] MEDS: TOPIRAMATE 50 MG TAB PO SCH ×2 (08:36→20:23)
[2021-03-03] MEDS: PANTOprazole 40 MG TAB PO SCH (08:37)
[2021-03-03] MEDS: SPIRONOLACTONE 25 MG TAB PO SCH (08:37)
[2021-03-03] MEDS: FLUTICASONE/VILANTEROL 200/25MCG 14 PUFFS/INHALER INH SCH (08:37)
[2021-03-03] MEDS: INSULIN ASPART 100 UNITS/ML 3 ML PEN SC SCH ×4 (08:38→21:26)
[2021-03-03] MEDS: AZITHROMYCIN 500 MG in DEXTROSE 5% 250 ML IV SCH (08:44)
--- NOTE | 2021-03-03 12:09 | Hospitalist Progress Note ---
Date of Service March 03, 2021 Assessment & Plan (1) Delirium tremens: Resolved - continue chlordiazepoxide JOSHUA taper. Ativan 1-3mg IV PRN per AWSS Transfer to medical Discontinued Wellbutrin due to increased risk of seizures. B1 level pending from yesterday. Add thiamine PO daily. (2) Sepsis: Met sepsis criteria, present on admission although possible ongoing fever secondary to alcohol withdrawal. Serum lactate is normal Suspect source is right sided CAP, despite negative procalcitonin No RUQ pain to suggest cholecystitis as noted on CT. (3) Pneumonia: Right middle/lower lobe pneumonia seen on chest x-ray, questionable 7 mm nodule seen on CT of the abdomen/pelvis Continue Ceftriaxone and Azithromycin Blood and sputum culture if possible PT/OT Nasal cannula O2 to keep O2 sat above 92% MRSA nose swab negative - vancomycin discontinued (4) Type 2 diabetes mellitus: Noted on old record but patient is not on diabetic medications per recent patient neurology note HbA1c 6.3 Low sliding scale insulin with meals (5) Hypertension: Continue usual outpatient home medications with diltiazem, metoprolol and add back spironolactone. (6) Hypercholesteremia: Patient is on Zetia and atorvastatin (7) Migraine: Patient neurology notes reviewed, will continue gabapentin and topiramate as per outpatient dosing (8) DVT prophylaxis: Lovenox 40mg SQ daily Admission and Anticipated Discharge Date Admission Date: March 01, 2021 Subjective Appears to be doing much better this morning. Not disorientated, less agitated. Mild sedation on current dose of Librium. Continued cough but no shortness of breath or chest pain. Blood pressure better controlled after adding spironolactone and alcohol withdrawal improved Review of Systems Review of Systems: All systems reviewed & are unremarkable except as noted in HPI & below Physical Exam Constitutional: well developed and + ill appearing; + not well nourished and no acute distress Eyes: PERRL, conjunctivae normal, anicteric sclerae no nystagmus Respiratory: normal respiratory effort, lungs clear to auscultation Cardiovascular: RRR, no murmur, no edema Gastrointestinal (Abdomen): normal bowel sounds, soft, nontender, no hepatosplenomegaly Musculoskeletal: no cyanosis or clubbing, extremities motor strength 5/5 Skin: no rashes, warm and dry Neurologic: moves all extremities, awake and + confused (Improved); no focal motor deficits (no lateralizing deficit) Speech / Cognition: normal speech Motor/Sensory: no tremor and no pronator drift Psychiatric: Orientation: alert, oriented to person, oriented to place and oriented to time Genitourinary: no CVA tenderness Results & Data Results & Data ([facility]) Vital Signs (Past 12 Hours) Vital Signs Temp Pulse Pulse Resp BP Pulse Ox 03/03/21 11:17 36.6 C 66 18 140/89 92 03/03/21 08:00 63 03/03/21 07:00 36.4 C L 68 16 151/86 H 93 03/03/21 03:29 36.6 C 71 18 148/81 H 92 PG Care Time/CCT Total # of Minutes Spent Total Time Spent with Patient: Total time spent is greater than 50% in coordination of care (as documented) at patient's floor/unit and/or counseling patient: Coding Level of Care Code 30835 Subseq Hosp Care Lvl 2 Diagnoses Delirium tremens F10.231 Sepsis A41.9 Pneumonia J18.9 Type 2 diabetes mellitus E11.9 Hypertension I10 Hypercholesteremia E78.00 Migraine G43.909 DVT prophylaxis Z29.9
[2021-03-03] MEDS: THIAMINE HCL 100 MG TAB PO SCH (13:24)
[2021-03-03] MEDS: cefTRIAXone SODIUM 2,000 MG in DEXTROSE 5% 50 ML IV SCH (16:34)
[2021-03-03] MEDS: ENOXAPARIN INJ 40 MG/0.4 ML SYR SQ SCH (20:18)
[2021-03-03] MEDS: GABAPENTIN 100 MG CAP PO SCH (20:19)
[2021-03-03] MEDS: MONTELUKAST SODIUM 10 MG TABLET PO SCH (20:21)
[2021-03-03] MEDS: TERAZOSIN HCL 5 MG CAP PO SCH (20:22)
[2021-03-03] MEDS: SPIRONOLACTONE 12.5 MG TAB PO SCH (20:22)
[2021-03-04] MEDS: chlordiazePOXIDE HCl 25 MG CAP PO SCH (04:21)
[2021-03-04] MEDS: EZETIMIBE 10 MG TABLET PO SCH (08:14)
[2021-03-04] MEDS: PANTOprazole 40 MG TAB PO SCH (08:15)
[2021-03-04] MEDS: dilTIAZem HCL 240 MG CAPCR PO SCH (08:15)
[2021-03-04] MEDS: LORATADINE 10 MG TAB PO SCH (08:15)
[2021-03-04] MEDS: SPIRONOLACTONE 25 MG TAB PO SCH (08:15)
[2021-03-04] MEDS: TOPIRAMATE 50 MG TAB PO SCH ×2 (08:16→20:30)
[2021-03-04] MEDS: METOPROLOL TARTRATE 50 MG TAB PO SCH ×2 (08:16→20:31)
[2021-03-04] MEDS: THIAMINE HCL 100 MG TAB PO SCH (08:16)
[2021-03-04] MEDS: FLUTICASONE/VILANTEROL 200/25MCG 14 PUFFS/INHALER INH SCH (08:17)
[2021-03-04] MEDS: AZITHROMYCIN 500 MG in DEXTROSE 5% 250 ML IV SCH (08:21)
[2021-03-04] MEDS: INSULIN ASPART 100 UNITS/ML 3 ML PEN SC SCH ×4 (08:25→20:49)
--- NOTE | 2021-03-04 10:57 | Hospitalist Progress Note ---
Date of Service March 04, 2021 Assessment & Plan (1) Delirium tremens: Continue chlordiazepoxide JOSHUA taper. Ativan 1-3mg IV PRN per AWSS. Continue on medical (2) Altered mental status: CT head - nill acute Start IV thiamine with thiamine level pending Reduced risk of seizures now through initial ?increased disorientation due to alcohol withdrawal vs. Librium vs. Wernicke's encephalopathy Lyme test negative. (3) Sepsis: Met sepsis criteria, present on admission although possible ongoing fever secondary to alcohol withdrawal. Serum lactate is normal Suspect source is right sided CAP, despite negative procalcitonin No RUQ pain, normal LFTs to suggest cholecystitis as noted on CT. (4) Pneumonia: Right middle/lower lobe pneumonia seen on chest x-ray, questionable 7 mm nodule seen on CT of the abdomen/pelvis Continue Ceftriaxone and Azithromycin Blood and sputum culture if possible PT/OT Nasal cannula O2 to keep O2 sat above 92% MRSA nose swab negative - vancomycin discontinued (5) Type 2 diabetes mellitus: Noted on old record but patient is not on diabetic medications per recent patient neurology note HbA1c 6.3 Low sliding scale insulin with meals (6) Hypertension: Continue usual outpatient home medications with diltiazem, metoprolol and add back spironolactone. (7) Hypercholesteremia: Patient is on Zetia and atorvastatin (8) Migraine: Patient neurology notes reviewed, will continue gabapentin and topiramate as per outpatient dosing (9) DVT prophylaxis: Lovenox 40mg SQ daily Admission and Anticipated Discharge Date Admission Date: March 01, 2021 Subjective Appears to be more confused and disorientated today. Not following commands well. Very off balance. reports he has been off balance for a number of months even when not drinking prior to admission. Thinks he may take a thiamine supplement. Given concern regarding negative procalcitonin, assessment for alternative cause of fever discussed and he lives in the [facility] and has had multiple tick bites therefore lyme test ordered. Review of Systems Review of Systems: All systems reviewed & are unremarkable except as noted in HPI & below Physical Exam Constitutional: well developed and + ill appearing; + not well nourished and no acute distress Eyes: PERRL, conjunctivae normal, anicteric sclerae no nystagmus Respiratory: normal respiratory effort, lungs clear to auscultation Cardiovascular: RRR, no murmur, no edema Gastrointestinal (Abdomen): normal bowel sounds, soft, nontender, no hepatosplenomegaly Musculoskeletal: no cyanosis or clubbing, extremities motor strength 5/5 Skin: no rashes, warm and dry Neurologic: moves all extremities, awake and + confused (Improved); no focal motor deficits (no lateralizing deficit) Speech / Cognition: normal speech Motor/Sensory: no tremor and no pronator drift Gait: + ataxic gait Psychiatric: Orientation: alert, oriented to person and oriented to place; + not oriented to time (1920, but aware it is February) Genitourinary: no CVA tenderness Results & Data Results & Data ([facility]) Vital Signs (Past 12 Hours) Vital Signs Temp Pulse Pulse Resp BP Pulse Ox 03/04/21 07:38 78 03/04/21 07:37 37.1 C 52 L 20 165/96 H 95 03/04/21 06:08 68 03/04/21 02:00 36.4 C L 72 20 157/89 H 92 PG Care Time/CCT Total # of Minutes Spent Total Time Spent with Patient: Total time spent is greater than 50% in coordination of care (as documented) at patient's floor/unit and/or counseling patient: Coding Level of Care Code 43307 Subseq Hosp Care Lvl 2 Diagnoses Delirium tremens F10.231 Altered mental status R41.82 Sepsis A41.9 Pneumonia J18.9 Type 2 diabetes mellitus E11.9 Hypertension I10 Hypercholesteremia E78.00 Migraine G43.909 DVT prophylaxis Z29.9
[2021-03-04] MEDS ORDERED: THIAMINE HCL 250 MG in SODIUM CHLORIDE 0.9% 50 ML IV STA (11:00)
[2021-03-04] MEDS: buPROPion SR 100 MG TABCR PO SCH ×2 (11:52→20:31)
[2021-03-04] MEDS: cefTRIAXone SODIUM 2,000 MG in DEXTROSE 5% 50 ML IV SCH (16:05)
[2021-03-04] MEDS: THIAMINE HCL 250 MG in SODIUM CHLORIDE 0.9% 50 ML IV SCH ×2 (16:06→20:28)
[2021-03-04 17:39] LABS: Lyme Ab IgG w/WB Rflx Negative (Negative); Lyme Ab IgM w/WB Rflx Negative (Negative)
[2021-03-04] MEDS: SPIRONOLACTONE 12.5 MG TAB PO SCH (20:29)
[2021-03-04] MEDS: GABAPENTIN 100 MG CAP PO SCH (20:29)
[2021-03-04] MEDS: MONTELUKAST SODIUM 10 MG TABLET PO SCH (20:29)
[2021-03-04] MEDS: TERAZOSIN HCL 5 MG CAP PO SCH (20:31)
[2021-03-04] MEDS: ENOXAPARIN INJ 40 MG/0.4 ML SYR SQ SCH (20:32)
[2021-03-05] MEDS: TOPIRAMATE 50 MG TAB PO SCH ×2 (09:29→21:56)
[2021-03-05] MEDS: METOPROLOL TARTRATE 50 MG TAB PO SCH ×2 (09:29→21:57)
[2021-03-05] MEDS: EZETIMIBE 10 MG TABLET PO SCH (09:29)
[2021-03-05] MEDS: SPIRONOLACTONE 25 MG TAB PO SCH (09:29)
[2021-03-05] MEDS: PANTOprazole 40 MG TAB PO SCH (09:29)
[2021-03-05] MEDS: MULTIVITAMIN TAB PO SCH (09:29)
[2021-03-05] MEDS: LORATADINE 10 MG TAB PO SCH (09:30)
[2021-03-05] MEDS: buPROPion SR 100 MG TABCR PO SCH ×2 (09:30→21:56)
[2021-03-05] MEDS: dilTIAZem HCL 240 MG CAPCR PO SCH (09:30)
[2021-03-05] MEDS: FLUTICASONE/VILANTEROL 200/25MCG 14 PUFFS/INHALER INH SCH (09:34)
[2021-03-05] MEDS: THIAMINE HCL 250 MG in SODIUM CHLORIDE 0.9% 50 ML IV SCH (09:34)
[2021-03-05] MEDS: INSULIN ASPART 100 UNITS/ML 3 ML PEN SC SCH ×4 (09:37→21:18)
[2021-03-05] MEDS: AZITHROMYCIN 500 MG in DEXTROSE 5% 250 ML IV SCH (10:04)
--- NOTE | 2021-03-05 10:14 | Hospitalist Progress Note ---
Date of Service March 05, 2021 Assessment & Plan (1) Acute delirium: Continued acute delirium of alcohol withdrawal. Some laterality to his coordination deficit therefore get MRI brain taken and nill acute pathology seen. Appeared to get much worse in the afternoon of the lorazepam given the full suspect some degree of benzodiazepine delirium and will discontinue further tapering. Given continued delirium possibly secondary to Librium use will remain in hospital while this weans out of his system to enable better picture of rehab potential. Possible Wernicke's encephalopathy therefore we will continue IV thiamine at increased dose of 500 mg 3 times daily for 2 days then 250 mg IV daily Plan for discharge to rehab on Tuesday. (2) Altered mental status: As above delirium (3) Delirium tremens: Now resolved. Delirium above unlikely to be due to alcohol withdrawal. (4) Sepsis: Met sepsis criteria, present on admission although possible ongoing fever secondary to alcohol withdrawal. Serum lactate is normal Suspect source is right sided CAP, despite negative procalcitonin No RUQ pain, normal LFTs to suggest cholecystitis as noted on CT. (5) Pneumonia: Right middle/lower lobe pneumonia seen on chest x-ray, questionable 7 mm nodule seen on CT of the abdomen/pelvis Continue Ceftriaxone and Azithromycin Blood and sputum culture if possible PT/OT Nasal cannula O2 to keep O2 sat above 92% MRSA nose swab negative - vancomycin discontinued (6) Type 2 diabetes mellitus: Noted on old record but patient is not on diabetic medications per recent patient neurology note HbA1c 6.3 Low sliding scale insulin with meals (7) Hypertension: Continue usual outpatient home medications with diltiazem, metoprolol and add back spironolactone. (8) Hypercholesteremia: Patient is on Zetia and atorvastatin (9) Migraine: Patient neurology notes reviewed, will continue gabapentin and topiramate as per outpatient dosing (10) DVT prophylaxis: Lovenox 40mg SQ daily Admission and Anticipated Discharge Date Admission Date: March 01, 2021 Subjective Appears mildly improved today. After moving rooms and given lorazepam for MRI he appeared get worse throughout the day. Increased psychomotor agitation. Appears very off balance with physical therapy No shortness of breath, fever, chills, cough, abdominal pain. Review of Systems Review of Systems: All systems reviewed & are unremarkable except as noted in HPI & below Physical Exam Constitutional: well developed and + ill appearing; + not well nourished and no acute distress Eyes: PERRL, conjunctivae normal, anicteric sclerae no nystagmus Respiratory: normal respiratory effort, lungs clear to auscultation Cardiovascular: RRR, no murmur, no edema Gastrointestinal (Abdomen): normal bowel sounds, soft, nontender, no hepatosplenomegaly Musculoskeletal: no cyanosis or clubbing, extremities motor strength 5/5 Skin: no rashes, warm and dry Neurologic: moves all extremities, awake and + confused (Resting throughout the day on lorazepam); no focal motor deficits (no lateralizing deficit) Speech / Cognition: normal speech Motor/Sensory: no tremor and no pronator drift Gait: + ataxic gait Coordination: + abnormal [id number] test (L > R) and + abnormal [id number] test (R > L) Psychiatric: Orientation: alert, oriented to person, oriented to place and oriented to time Motor Behavior: + psychomotor agitation Genitourinary: no CVA tenderness Results & Data Results & Data ([facility]) Vital Signs (Past 12 Hours) Vital Signs Temp Pulse Pulse Resp BP Pulse Ox 03/05/21 07:24 36.5 C 81 18 147/80 H 93 03/05/21 03:43 36.8 C 77 18 145/85 H 90 03/04/21 23:59 72 03/04/21 23:26 36.8 C 68 18 126/79 90 PG Care Time/CCT Total # of Minutes Spent Total Time Spent with Patient: Total time spent is greater than 50% in coordination of care (as documented) at patient's floor/unit and/or counseling patient: Coding Level of Care Code 50288 Subseq Hosp Care Lvl 2 Diagnoses Acute delirium R41.0 Altered mental status R41.82 Delirium tremens F10.231 Sepsis A41.9 Pneumonia J18.9 Type 2 diabetes mellitus E11.9 Hypertension I10 Hypercholesteremia E78.00 Migraine G43.909 DVT prophylaxis Z29.9
[2021-03-05] MEDS ORDERED: LORazepam 1 MG/2 ML VIAL IV PRN (10:19)
--- NOTE | 2021-03-05 11:58 | XRay Report ---
XR chest 1V portable HISTORY: Sepsis. Follow-up pneumonia COMPARISON: Chest 03/01/2021. FINDINGS: No significant change in the hazy airspace opacities within the right mid to lower lung zon es. This is similar to the prior study. There are suture material within the right lung consistent wi th postoperative change. No pneumothorax. No pleural fusions. Stable subsegmental atelectasis at the left lung base. The heart remains borderline enlarged. Cervical spinal fusion hardware is again noted . IMPRESSION: Redemonstration of the right mid to lower lung zone hazy airspace opacity likely representing a pneum onia. 2-3 month chest x-ray follow-up recommended to ensure resolution. ACT 112: Negative or not required by law. Electronically signed by: Humberto Cancino M.D. 03/05/2021 11:56 AM
[2021-03-05] MEDS ORDERED: chlordiazePOXIDE HCl 5 MG CAP PO SCH (12:00)
--- NOTE | 2021-03-05 12:59 | Magnetic Resonance Report ---
MRI OF THE BRAIN WITHOUT CONTRAST CLINICAL HISTORY: cerebellar ataxia, confusion COMPARISON STUDY: CT scan dated 03/01/2021, MRI dated 12/20/2017 FINDINGS: Sagittal T1, axial diffusion, and axial T2-weighted images were acquired. The study is motion degrade d. The patient refused continuation of the study. No intra or extra-axial mass lesions are visualized Axial diffusion-weighted images reveal no evidence of acute or subacute infarction. There is mild ventricular prominence, finding which is felt to be secondary to volume loss Proton density T2-weighted and FLAIR images reveal scattered foci of increased T2 signal within the w lamine matter, likely on a small vessel basis. There are no abnormal flow voids. IMPRESSION: 1. Significantly limited study from a technical standpoint. 2. No acute intracranial findings 3. No evidence of intracranial mass 4. No evidence of acute or subacute infarction ACT 112: Negative or not required by law. Electronically signed by: Melo Samuel M.D. 03/05/2021 12:58 PM
[2021-03-05] MEDS: THIAMINE HCL 500 MG in SODIUM CHLORIDE 0.9% 50 ML IV SCH ×2 (15:19→22:09)
[2021-03-05] MEDS: cefTRIAXone SODIUM 2,000 MG in DEXTROSE 5% 50 ML IV SCH (16:40)
[2021-03-05] MEDS: GABAPENTIN 100 MG CAP PO SCH (21:56)
[2021-03-05] MEDS: SPIRONOLACTONE 12.5 MG TAB PO SCH (21:57)
[2021-03-05] MEDS: ENOXAPARIN INJ 40 MG/0.4 ML SYR SQ SCH (21:57)
[2021-03-05] MEDS: TERAZOSIN HCL 5 MG CAP PO SCH (21:57)
[2021-03-05] MEDS: MONTELUKAST SODIUM 10 MG TABLET PO SCH (21:57)
[2021-03-06 06:17] LABS: Basophils # (auto) 0.02 K/uL (0-0.2); Basophils % (auto) 0.2 %; Eosinophils # (auto) 0.47 K/uL (0-0.5); Eosinophils % (auto) 5.1 %; Hematocrit (blood only) 39.2 % (42-52); Hemoglobin 13.9 g/dL (14.0-18.0); Immature Granulocytes # (auto) 0.03 K/uL (0.00-0.02); Immature Granulocytes % (auto) 0.3 %; Lymphocytes # (auto) 1.09 K/uL (1.2-3.4); Lymphocytes % (auto) 11.9 %; Mean Corpuscular Hemoglobin 33.2 pg (25-34); Mean Corpuscular Hgb Conc 35.5 g/dL (32-36); Mean Corpuscular Volume 93.6 fL (80-100); Mean Platelet Volume 9.9 fL (7.4-10.4); Monocytes # (auto) 1.14 K/uL (0.11-0.59); Monocytes % (auto) 12.5 %; Neutrophils # (auto) 6.39 K/uL (1.4-6.5); Platelet Count 261 K/uL (130-400); RDW Coefficient of Variation 12.9 % (11.5-14.5); RDW Standard Deviation 44.2 fL (36.4-46.3); Red Blood Count 4.19 M/uL (4.7-6.1); White Blood Count 9.14 K/uL (4.8-10.8)
[2021-03-06 06:45] LABS: Albumin Level 2.7 gm/dl (3.4-5.0); BUN Creatinine Ratio 17.4 (10-20); Creatinine Clr Calc Pharmacy 91.7 ml/min; Est GFR (African American) 105.9 ml/min; Est GFR (Non-African American) 91.4 ml/min; Potassium 3.9 mmol/L (3.5-5.1)
[2021-03-06 06:46] LABS: Albumin Globulin Ratio 0.6 (0.9-2); Bilirubin,Total 0.5 mg/dl (0.2-1); Globulin 4.7 gm/dl (2.5-4.0); Total Protein 7.4 gm/dl (6.4-8.2)
[2021-03-06] MEDS: buPROPion SR 100 MG TABCR PO SCH ×2 (09:23→21:05)
[2021-03-06] MEDS: dilTIAZem HCL 240 MG CAPCR PO SCH (09:24)
[2021-03-06] MEDS: EZETIMIBE 10 MG TABLET PO SCH (09:25)
[2021-03-06] MEDS: MULTIVITAMIN TAB PO SCH (09:26)
[2021-03-06] MEDS: TOPIRAMATE 50 MG TAB PO SCH ×2 (09:27→21:11)
[2021-03-06] MEDS: PANTOprazole 40 MG TAB PO SCH (09:28)
[2021-03-06] MEDS: METOPROLOL TARTRATE 50 MG TAB PO SCH ×2 (09:28→21:05)
[2021-03-06] MEDS: SPIRONOLACTONE 25 MG TAB PO SCH (09:29)
[2021-03-06] MEDS: THIAMINE HCL 500 MG in SODIUM CHLORIDE 0.9% 50 ML IV SCH ×2 (09:30→10:32)
[2021-03-06] MEDS: FLUTICASONE/VILANTEROL 200/25MCG 14 PUFFS/INHALER INH SCH (09:31)
[2021-03-06] MEDS: INSULIN ASPART 100 UNITS/ML 3 ML PEN SC SCH ×4 (09:37→21:11)
[2021-03-06] MEDS: LORATADINE 10 MG TAB PO SCH (10:31)
[2021-03-06] MEDS: THIAMINE HCL 500 MG in 0.9 % SODIUM CHLORIDE 100 ML IV SCH ×3 (10:33→21:02)
[2021-03-06] MEDS: cefTRIAXone SODIUM 2,000 MG in DEXTROSE 5% 50 ML IV SCH (17:42)
--- NOTE | 2021-03-06 20:41 | Hospitalist Progress Note ---
Date of Service March 06, 2021 Assessment & Plan (1) Acute delirium: Continued acute delirium after alcohol withdrawal. Some laterality to his coordination deficit therefore get MRI brain taken and nill acute pathology seen. Appeared to get much worse in the afternoon of the lorazepam given the full suspect some degree of benzodiazepine delirium and will discontinue further tapering. Possible Wernicke's encephalopathy therefore we will continue IV thiamine at increased dose of 500 mg 3 times daily for 2 days then 250 mg IV daily Plan for discharge to rehab on Tuesday. Possibility for further improvement but I am concerned this is his new baseline. (2) Altered mental status: As above delirium (3) Delirium tremens: Now resolved. Delirium above unlikely to be due to alcohol withdrawal. (4) Sepsis: Met sepsis criteria, present on admission although possible ongoing fever secondary to alcohol withdrawal. Serum lactate is normal Suspect source is right sided CAP, despite negative procalcitonin No RUQ pain, normal LFTs to suggest cholecystitis as noted on CT. (5) Pneumonia: Right middle/lower lobe pneumonia seen on chest x-ray, questionable 7 mm nodule seen on CT of the abdomen/pelvis Continue Ceftriaxone. Azithromycin (finished 5 day course). Blood and sputum culture if possible PT/OT Nasal cannula O2 to keep O2 sat above 92% MRSA nose swab negative - vancomycin discontinued (6) Type 2 diabetes mellitus: Noted on old record but patient is not on diabetic medications per recent patient neurology note HbA1c 6.3 Low sliding scale insulin with meals (7) Hypertension: Continue usual outpatient home medications with diltiazem, metoprolol and add back spironolactone. (8) Hypercholesteremia: Patient is on Zetia and atorvastatin (9) Migraine: Patient neurology notes reviewed, will continue gabapentin and topiramate as per outpatient dosing (10) DVT prophylaxis: Lovenox 40mg SQ daily Admission and Anticipated Discharge Date Admission Date: March 01, 2021 Subjective Patient appears improved after given lorazepam yesterday. Appears to be more balance with physical therapy. Quicker to answer questions. Orientated x3. No chest pain, shortness of breath, cough, abdominal pain, diarrhea or constipation. Review of Systems Review of Systems: All systems reviewed & are unremarkable except as noted in HPI & below Physical Exam Constitutional: well developed and + ill appearing; + not well nourished and no acute distress Respiratory: normal respiratory effort, lungs clear to auscultation Cardiovascular: RRR, no murmur, no edema Gastrointestinal (Abdomen): normal bowel sounds, soft, nontender, no hepatosplenomegaly Skin: no rashes, warm and dry Neurologic: moves all extremities, awake and + confused (Resting throughout the day on lorazepam); no focal motor deficits (no lateralizing deficit) Speech / Cognition: normal speech Motor/Sensory: no tremor and no pronator drift Psychiatric: Orientation: alert, oriented to person, oriented to place and oriented to time Motor Behavior: + psychomotor agitation Cognition: remote memory grossly intact; + recent memory not intact Genitourinary: no CVA tenderness Results & Data Results & Data ([facility]) Vital Signs (Past 12 Hours) Vital Signs Temp Pulse Pulse Resp BP Pulse Ox 03/06/21 14:56 36.4 C L 71 22 131/76 94 03/06/21 09:20 36.7 C 87 16 134/82 92 PG Care Time/CCT Total # of Minutes Spent Total Time Spent with Patient: Total time spent is greater than 50% in coordination of care (as documented) at patient's floor/unit and/or counseling patient: Coding Level of Care Code 17220 Subseq Hosp Care Lvl 2 Diagnoses Acute delirium R41.0 Altered mental status R41.82 Delirium tremens F10.231 Sepsis A41.9 Pneumonia J18.9 Type 2 diabetes mellitus E11.9 Hypertension I10 Hypercholesteremia E78.00 Migraine G43.909 DVT prophylaxis Z29.9
[2021-03-06] MEDS: GABAPENTIN 100 MG CAP PO SCH (21:04)
[2021-03-06] MEDS: TERAZOSIN HCL 5 MG CAP PO SCH (21:05)
[2021-03-06] MEDS: MONTELUKAST SODIUM 10 MG TABLET PO SCH (21:05)
[2021-03-06] MEDS: ENOXAPARIN INJ 40 MG/0.4 ML SYR SQ SCH (21:06)
[2021-03-06] MEDS: SPIRONOLACTONE 12.5 MG TAB PO SCH (21:06)
[2021-03-07] MEDS: FLUTICASONE/VILANTEROL 200/25MCG 14 PUFFS/INHALER INH SCH (09:12)
[2021-03-07] MEDS: INSULIN ASPART 100 UNITS/ML 3 ML PEN SC SCH ×4 (09:14→20:58)
[2021-03-07] MEDS: buPROPion SR 100 MG TABCR PO SCH ×2 (09:15→19:58)
[2021-03-07] MEDS: MULTIVITAMIN TAB PO SCH (09:15)
[2021-03-07] MEDS: PANTOprazole 40 MG TAB PO SCH (09:15)
[2021-03-07] MEDS: LORATADINE 10 MG TAB PO SCH (09:15)
[2021-03-07] MEDS: METOPROLOL TARTRATE 50 MG TAB PO SCH ×2 (09:15→19:58)
[2021-03-07] MEDS: dilTIAZem HCL 240 MG CAPCR PO SCH (09:15)
[2021-03-07] MEDS: EZETIMIBE 10 MG TABLET PO SCH (09:15)
[2021-03-07] MEDS: SPIRONOLACTONE 25 MG TAB PO SCH (09:15)
[2021-03-07] MEDS: THIAMINE HCL 250 MG in SODIUM CHLORIDE 0.9% 50 ML IV SCH (09:15)
[2021-03-07] MEDS: TOPIRAMATE 50 MG TAB PO SCH ×2 (09:15→19:57)
[2021-03-07] MEDS: cefTRIAXone SODIUM 2,000 MG in DEXTROSE 5% 50 ML IV SCH (16:15)
--- NOTE | 2021-03-07 18:45 | Hospitalist Progress Note ---
Date of Service March 07, 2021 Assessment & Plan (1) Acute delirium: Continued acute delirium after alcohol withdrawal. MRI brain negative for acute pathology. ?secondary to benzodiazepines ?Wernicke's encephalopathy - IV thiamine 500 mg TID given for 2 days then 250 mg IV daily till discharge, thiamine level pending Plan for discharge to rehab on Tuesday. Possibility for further improvement but I am concerned this is his new baseline. (2) Altered mental status: As above delirium (3) Delirium tremens: Now resolved. Ongoing delirium not suspected to be due to alcohol withdrawal. (4) Sepsis: Met sepsis criteria, present on admission. Serum lactate is normal Suspect source is right sided CAP, despite negative procalcitonin No RUQ pain, normal LFTs to suggest cholecystitis as noted on CT. (5) Pneumonia: Right middle/lower lobe pneumonia on CXR Continue Ceftriaxone (last dose today). Azithromycin (finished 5 day course). Blood culture negative MRSA nose swab negative - vancomycin discontinued (6) Pulmonary nodule: Questionable 7 mm nodule seen on CT of the abdomen/pelvis Follow up CT in 4-6 weeks (7) Type 2 diabetes mellitus: Noted on old record but patient is not on diabetic medications per recent patient neurology note HbA1c 6.3 Low sliding scale insulin with meals (8) Hypertension: Continue usual outpatient home medications with diltiazem, metoprolol and spironolactone. (9) Hypercholesteremia: Patient is on Zetia and atorvastatin (10) Migraine: Patient neurology notes reviewed, will continue gabapentin and topiramate as per outpatient dosing (11) DVT prophylaxis: Lovenox 40mg SQ daily Medically stable for discharge once off one to one rehab Admission and Anticipated Discharge Date Admission Date: March 01, 2021 Subjective Similar to yesterday. Off one to one this morning. Possibly less agitated. Discussed with his and discussed mild previous ataxia and very mild memory difficulties. Review of Systems Review of Systems: All systems reviewed & are unremarkable except as noted in HPI & below Physical Exam Constitutional: well developed and + ill appearing; + not well nourished and no acute distress Respiratory: normal respiratory effort, lungs clear to auscultation Cardiovascular: RRR, no murmur, no edema Gastrointestinal (Abdomen): normal bowel sounds, soft, nontender, no hepatosplenomegaly Musculoskeletal: no cyanosis or clubbing, extremities motor strength 5/5 Skin: no rashes, warm and dry Neurologic: moves all extremities, awake and + confused; no focal motor deficits (no lateralizing deficit) Speech / Cognition: normal speech Motor/Sensory: no tremor and no pronator drift Gait: + ataxic gait Psychiatric: Orientation: alert, oriented to person, oriented to place and oriented to time Motor Behavior: + psychomotor agitation Cognition: remote memory grossly intact; + recent memory not intact Results & Data Results & Data ([facility]) Vital Signs (Past 12 Hours) Vital Signs Temp Pulse Pulse Resp BP BP Pulse Ox 03/07/21 15:29 36.5 C 69 16 149/93 H 98 03/07/21 08:46 36.3 C L 88 18 122/73 92 PG Care Time/CCT Total # of Minutes Spent Total Time Spent with Patient: Total time spent is greater than 50% in coordination of care (as documented) at patient's floor/unit and/or counseling patient: Coding Level of Care Code 06475 Subseq Hosp Care Lvl 1 Diagnoses Acute delirium R41.0 Altered mental status R41.82 Delirium tremens F10.231 Sepsis A41.9 Pneumonia J18.9 Pneumonia type: due to unspecified organism Laterality: right Lung location: middle lobe of lung Pulmonary nodule R91.1 Type 2 diabetes mellitus E11.9 Hypertension I10 Hypercholesteremia E78.00 Migraine G43.909 DVT prophylaxis Z29.9 (1) Pneumonia Pneumonia type: due to unspecified organism Laterality: right Lung location: middle lobe of lung Qualified Code(s): J18.9 - Pneumonia, unspecified organism
[2021-03-07] MEDS: GABAPENTIN 100 MG CAP PO SCH (19:57)
[2021-03-07] MEDS: TERAZOSIN HCL 5 MG CAP PO SCH (19:58)
[2021-03-07] MEDS: SPIRONOLACTONE 12.5 MG TAB PO SCH (19:58)
[2021-03-07] MEDS: ENOXAPARIN INJ 40 MG/0.4 ML SYR SQ SCH (19:59)
[2021-03-07] MEDS: MONTELUKAST SODIUM 10 MG TABLET PO SCH (19:59)
[2021-03-07] MEDS: ALBUTEROL 0.083% NEBU SOLN 3 ML VIAL NEB PRN (20:37)
[2021-03-08 06:20] LABS: Albumin Level 2.7 gm/dl (3.4-5.0); BUN Creatinine Ratio 20.1 (10-20); Calcium 9.3 mg/dl (8.5-10.1); Creatinine Clr Calc Pharmacy 86.9 ml/min; Est GFR (African American) 103.6 ml/min; Est GFR (Non-African American) 89.4 ml/min; Potassium 3.8 mmol/L (3.5-5.1)
[2021-03-08 06:23] LABS: Albumin Globulin Ratio 0.6 (0.9-2); Bilirubin,Total 0.3 mg/dl (0.2-1); Globulin 4.5 gm/dl (2.5-4.0); Total Protein 7.2 gm/dl (6.4-8.2)
[2021-03-08] MEDS: INSULIN ASPART 100 UNITS/ML 3 ML PEN SC SCH ×3 (09:08→18:18)
[2021-03-08] MEDS: dilTIAZem HCL 240 MG CAPCR PO SCH (09:10)
[2021-03-08] MEDS: buPROPion SR 100 MG TABCR PO SCH ×2 (09:10→19:32)
[2021-03-08] MEDS: FLUTICASONE/VILANTEROL 200/25MCG 14 PUFFS/INHALER INH SCH (09:11)
[2021-03-08] MEDS: EZETIMIBE 10 MG TABLET PO SCH (09:11)
[2021-03-08] MEDS: SPIRONOLACTONE 25 MG TAB PO SCH (09:12)
[2021-03-08] MEDS: LORATADINE 10 MG TAB PO SCH (09:12)
[2021-03-08] MEDS: PANTOprazole 40 MG TAB PO SCH (09:12)
[2021-03-08] MEDS: METOPROLOL TARTRATE 50 MG TAB PO SCH ×2 (09:12→19:33)
[2021-03-08] MEDS: MULTIVITAMIN TAB PO SCH (09:12)
[2021-03-08] MEDS: TOPIRAMATE 50 MG TAB PO SCH ×2 (09:13→19:33)
[2021-03-08] MEDS: THIAMINE HCL 250 MG in SODIUM CHLORIDE 0.9% 50 ML IV SCH (09:14)
[2021-03-08] MEDS: ACETAMINOPHEN 325 MG TAB PO PRN (17:21)
[2021-03-08] MEDS ORDERED: POLYETHYLENE (MIRALAX) 17 GM PACK PO PRN (19:21)
[2021-03-08] MEDS ORDERED: POLYETHYLENE (MIRALAX) 17 GM PACK PO ONE (19:22)
[2021-03-08] MEDS: GABAPENTIN 100 MG CAP PO SCH (19:33)
[2021-03-08] MEDS: SPIRONOLACTONE 12.5 MG TAB PO SCH (19:33)
[2021-03-08] MEDS: TERAZOSIN HCL 5 MG CAP PO SCH (19:34)
[2021-03-08] MEDS: MONTELUKAST SODIUM 10 MG TABLET PO SCH (19:34)
[2021-03-08] MEDS: ENOXAPARIN INJ 40 MG/0.4 ML SYR SQ SCH (19:34)
--- NOTE | 2021-03-08 19:39 | Hospitalist Progress Note ---
Date of Service March 08, 2021 Assessment & Plan (1) Acute delirium: Continued delirium after alcohol withdrawal. MRI brain negative for acute pathology. Possible Wernicke/Korsakoffs - Continued ataxia and anterograde memory loss. IV thiamine 500 mg TID given for 2 days then 250 mg IV daily till discharge. B1 level WNL - therefore suspect limited reversibility with high dose IV thiamine. Benzodiazepines appear to be mostly of his system at this time however they did appear to make him more delirious. 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 Possibility for further improvement but I am concerned this is his new baseline. Consult neurology - Dr uGan, requested by family since he sees him as an outpatient - ?reduce Topamax as reduction has helped his cognition in the past. (2) Altered mental status: As above delirium (3) Alcohol use disorder: Continue thiamine 100mg PO daily on discharge B12 level WNL Will complete workup with folate level in AM (4) Delirium tremens: Now resolved. Ongoing delirium not suspected to be due to alcohol withdrawal. (5) Sepsis: Met sepsis criteria, present on admission. Possible diagnosis although procalcitonin negative possibly suggests main presenting problem on admission was delirium tremens and CXR finding was mild aspiration possibly precipitated by atorvastatin causing nausea and vomiting. Serum lactate is normal Suspect source is right sided CAP, despite negative procalcitonin Blood culture negative No RUQ pain, normal LFTs to suggest cholecystitis as noted on CT. (6) Pneumonia: Right middle/lower lobe pneumonia on CXR Ceftriaxone + Azithromycin (now finished). MRSA nose swab negative - vancomycin discontinued (7) Pulmonary nodule: Questionable 7 mm nodule seen on CT of the abdomen/pelvis Follow up CT in 4-6 weeks (8) Type 2 diabetes mellitus: Noted on old record but patient is not on diabetic medications per recent patient neurology note HbA1c 6.3 Given only requiring odd unit and glucose appears well controlled will d/c further BSG checks to avoid exacerbating delirium (9) Hypertension: Continue usual outpatient home medications with diltiazem, metoprolol and spironolactone. (10) Hypercholesteremia: Patient is on Zetia. Intolerant to atorvastatin (recently restarted this and caused nausea/vomiting) (11) Migraine: Patient neurology notes reviewed, will continue gabapentin and topiramate as per outpatient dosing (12) DVT prophylaxis: Lovenox 40mg SQ daily Medically stable for discharge Admission and Anticipated Discharge Date Admission Date: March 01, 2021 Anticipated date of discharge: 03/09/21 Subjective Continued significant anterograde amnesia and short term memory loss. Confabulates to try to hide the degree of his poor memory. Able to remember the names of his children but not grandchildren. Denies his memory is much of an ongoing issue. No BM since 03/05. Review of Systems Review of Systems: All systems reviewed & are unremarkable except as noted in HPI & below Physical Exam Constitutional: well developed and + ill appearing; + not well nourished and no acute distress Eyes: + anicteric sclerae; normal pupil size and no nystagmus ENMT: external ear and nose normal, oropharynx normal Respiratory: normal respiratory effort, lungs clear to auscultation Cardiovascular: RRR, no murmur, no edema Gastrointestinal (Abdomen): normal bowel sounds, soft, nontender, no hepatosplenomegaly Musculoskeletal: no cyanosis or clubbing, extremities motor strength 5/5 Skin: no rashes, warm and dry Neurologic: moves all extremities, awake and + confused (mild) Speech / Cognition: normal speech Psychiatric: Orientation: alert, oriented to person and oriented to place; + not oriented to time (2120) Eye Contact: + fair eye contact Motor Behavior: + psychomotor agitation Speech: normal rate/rhythm/volume of speech Affect: + flat affect Cognition: remote memory grossly intact and language grossly intact; + recent memory not intact and + attention not intact Insight: + poor insight Results & Data Results & Data ([facility]) Vital Signs (Past 12 Hours) Vital Signs Temp Pulse Pulse Resp BP Pulse Ox 03/08/21 19:31 75 145/82 H 93 03/08/21 08:05 37.0 C 82 16 126/81 94 PG Care Time/CCT Total # of Minutes Spent Total Time Spent with Patient: Total time spent is greater than 50% in coordination of care (as documented) at patient's floor/unit and/or counseling patient: Coding Level of Care Code 91130 Subseq Hosp Care Lvl 1 Diagnoses Acute delirium R41.0 Altered mental status R41.82 Alcohol use disorder Delirium tremens F10.231 Sepsis A41.9 Pneumonia J18.9 Pneumonia type: due to unspecified organism Laterality: right Lung location: middle lobe of lung Pulmonary nodule R91.1 Type 2 diabetes mellitus E11.9 Diabetes mellitus intermediate insulin use: without terminal makeup operator use Diabetes mellitus complication status: without complication Hypertension I10 Hypertension type: essential hypertension Hypercholesteremia E78.00 Migraine G43.909 DVT prophylaxis Z29.9 (1) Pneumonia Pneumonia type: due to unspecified organism Laterality: right Lung location: middle lobe of lung Qualified Code(s): J18.9 - Pneumonia, unspecified organism (2) Type 2 diabetes mellitus Diabetes mellitus terminal makeup operator insulin use: without terminal makeup operator use Diabetes mellitus complication status: without complication Qualified Code(s): E11.9 - Type 2 diabetes mellitus without complications (3) Hypertension Hypertension type: essential hypertension Qualified Code(s): I10 - Essential (primary) hypertension
[2021-03-09] MEDS: FLUTICASONE/VILANTEROL 200/25MCG 14 PUFFS/INHALER INH SCH (08:32)
[2021-03-09] MEDS: dilTIAZem HCL 240 MG CAPCR PO SCH (08:33)
[2021-03-09] MEDS: METOPROLOL TARTRATE 50 MG TAB PO SCH ×2 (08:33→21:49)
[2021-03-09] MEDS: MULTIVITAMIN TAB PO SCH (08:33)
[2021-03-09] MEDS: buPROPion SR 100 MG TABCR PO SCH ×2 (08:33→21:48)
[2021-03-09] MEDS: PANTOprazole 40 MG TAB PO SCH (08:33)
[2021-03-09] MEDS: TOPIRAMATE 50 MG TAB PO SCH ×2 (08:33→21:50)
[2021-03-09] MEDS: EZETIMIBE 10 MG TABLET PO SCH (08:33)
[2021-03-09] MEDS: SPIRONOLACTONE 25 MG TAB PO SCH (08:33)
[2021-03-09] MEDS: LORATADINE 10 MG TAB PO SCH (08:33)
--- NOTE | 2021-03-09 09:12 | Hospitalist Progress Note ---
Date of Service March 09, 2021 Assessment & Plan (1) Acute delirium: Continued delirium after alcohol withdrawal. MRI brain negative for acute pathology. Possible Wernicke/Korsakoffs - Continued ataxia and anterograde memory loss. IV thiamine 500 mg TID given for 2 days then 250 mg IV daily till discharge. B1 level WNL - therefore suspect limited reversibility with high dose IV thiamine. Benzodiazepines appear to be mostly of his system at this time however they did appear to make him more delirious. 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 Possibility for further improvement but I am concerned this is his new baseline. Consult neurology - Dr Guan, requested by family since he sees him as an outpatient - ?reduce Topamax as reduction has helped his cognition in the past. (2) Altered mental status: As above delirium (3) Alcohol use disorder: Continue thiamine 100mg PO daily on discharge B12 level WNL Will complete workup with folate level in AM (4) Delirium tremens: Now resolved. Ongoing delirium not suspected to be due to alcohol withdrawal. (5) Sepsis: Met sepsis criteria, present on admission. Possible diagnosis although procalcitonin negative possibly suggests main presenting problem on admission was delirium tremens and CXR finding was mild aspiration possibly precipitated by atorvastatin causing nausea and vomiting. Serum lactate is normal Suspect source is right sided CAP, despite negative procalcitonin Blood culture negative No RUQ pain, normal LFTs to suggest cholecystitis as noted on CT. (6) Pneumonia: Right middle/lower lobe pneumonia on CXR Ceftriaxone + Azithromycin (now finished). MRSA nose swab negative - vancomycin discontinued (7) Pulmonary nodule: Questionable 7 mm nodule seen on CT of the abdomen/pelvis Follow up CT in 4-6 weeks (8) Type 2 diabetes mellitus: Noted on old record but patient is not on diabetic medications per recent patient neurology note HbA1c 6.3 Given only requiring odd unit and glucose appears well controlled will d/c further BSG checks to avoid exacerbating delirium (9) Hypertension: Continue usual outpatient home medications with diltiazem, metoprolol and spironolactone. (10) Hypercholesteremia: Patient is on Zetia. Intolerant to atorvastatin (recently restarted this and caused nausea/vomiting) (11) Migraine: Patient neurology notes reviewed, will continue gabapentin and topiramate as per outpatient dosing (12) DVT prophylaxis: Lovenox 40mg SQ daily Medically stable for discharge Admission and Anticipated Discharge Date Admission Date: March 01, 2021 Subjective Pt is pleasant and conversational, remains very weak is looking toward physical rehab, is transitioned to po thiamine Review of Systems Review of Systems: Mild distress and fatigue no headache, no visual changes no speech or swallowing issues no chest pain, pressure or palpitations no shortness of breath, cough or wheezes no abdominal pain, nausea or vomiting, diarrhea or constipation no dysuria, hematuria or frequency no focal joint pain or swelling no back pain, CVA tenderness or radicular pain no bruising, bleeding or rashes no focal signs of weakness or numbness or altered sensation, definitely moves stiffly and not coordinated Physical Exam Physical Exam: The patient appeared well nourished and normally developed. Vital signs as documented. Head exam is normocephalic atraumatic Neck is without JVD, thyromegaly, or carotid bruits. Lungs are some rhonchi heard in the right lung base clear with deep inspiration and cough Cardiac exam, Rhythm is regular.. No murmurs, rubs or gallops. Abdominal exam reveals normal bowel sounds, soft non tender, no masses Extremities are nonedematous and both pedal pulses are present Neurologic exam is alert and oriented x3, no focal loss of strength or sensation Overall seems fairly deconditioned Skin is without bruises or rashes Psychologically is without concerns for anxiety or depression Results & Data Results & Data ([facility]) Vital Signs (Past 12 Hours) Vital Signs Temp Pulse Resp BP Pulse Ox 03/09/21 07:34 98.4 F 90 18 131/69 90 03/09/21 00:00 98.1 F 61 16 116/75 93 PG Care Time/CCT Total # of Minutes Spent Total Time Spent with Patient: Total time spent is greater than 50% in coordination of care (as documented) at patient's floor/unit and/or counseling patient: Coding Level of Care Code 66964 Subseq Hosp Care Lvl 2 Diagnoses Acute delirium R41.0 Altered mental status R41.82 Alcohol use disorder Delirium tremens F10.231 Sepsis A41.9 Pneumonia J18.9 Laterality: right Lung location: middle lobe of lung Pneumonia type: due to unspecified organism Pulmonary nodule R91.1 Type 2 diabetes mellitus E11.9 Diabetes mellitus complication status: without complication Diabetes mellitus 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 Hypertension I10 Hypertension type: essential hypertension Hypercholesteremia E78.00 Migraine G43.909 DVT prophylaxis Z29.9 (1) Type 2 diabetes mellitus Diabetes mellitus complication status: without complication Diabetes mellitus custodial insulin use: without custodial use Qualified Code(s): E11.9 - Type 2 diabetes mellitus without complications (2) Hypertension Hypertension type: essential hypertension Qualified Code(s): I10 - Essential (primary) hypertension (3) Pneumonia Laterality: right Lung location: middle lobe of lung Pneumonia type: due to unspecified organism Qualified Code(s): J18.9 - Pneumonia, unspecified organism
[2021-03-09] MEDS: THIAMINE HCL 250 MG in SODIUM CHLORIDE 0.9% 50 ML IV SCH (09:32)
--- NOTE | 2021-03-09 09:52 | Neurology Consultation ---
Date of Consultation March 09, 2021 Assessment & Plan (1) Alcohol use disorder: (2) Acute delirium: (3) Ataxia: (4) Memory loss: I agree with the suspected diagnosis of alcohol withdrawal related delirium, seems to be improved at this time although patient continues to display mild difficulty with memory, mild element of confabulation. 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 May have an element of alcohol induced peripheral neuropathy as well. Does not have nystagmus or ophthalmoplegia. 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 Agree with thiamine supplementation. Abstinence from alcohol will need to be stressed going forward. Would taper off topiramate at this time as this medication may have a negative impact on memory/cognitive functioning. He may continue with low-dose gabapentin taken at bedtime. Should have an outpatient EMG completed to further evaluate for suspected peripheral neuropathy. May follow-up with me in clinic in 3 to 4 weeks. No further immediate recommendations. History of Present Illness Reason for Consultation: Change in mental status, possible Korsakoff psychosis Requesting Physician: Quan Rivera MD Attending Physician: Guanakito Schmitz MD History of Present Illness The patient is a 75-year old male who was admitted to the [facility] 8 days ago for confusion and trouble walking. He had been complaining of dizziness and feeling generally weak and rundown for several days. He had apparently fallen and hit his head about 1 week prior. He was admitted to the [facility] with a diagnosis of pneumonia and has been treated with antibiotics. He apparently became acutely delirious the following day potentially worrisome for alcohol withdrawal/delirium tremens. Upon speaking with the patient further, he has a history of chronic heavy alcohol use that goes back many years, he readily admits to consuming at least 6 or more alcoholic drinks per day, typically beer, wine, and hard liquor. His delirium has notably improved although he continues to have some difficulty with memory and relating a cohesive history of present illness. I have seen this patient previously and last saw him in neurology clinic December 19, 2020 for ongoing evaluation and management of headaches, ataxia, and memory loss. A brain MRI completed in 2018 had revealed generalized atrophy with an element of ventricular enlargement and chronic small vessel ischemic disease. He also has a probable polyneuropathy. I had suggested some up-to-date testing at his last appointment including up-to-date brain MRI and EMG. The EMG has not been completed. He did have an MRI completed on March 05, during this current hospitalization. The study was rather limited due to motion artifact although was negative for acute process. There is generalized atrophy with ventricular prominence felt to be secondary to volume loss. There is evidence of chronic small vessel ischemic change. I reviewed the images as well as the radiologist interpretation of this test and agree. The patient does recall seeing me in clinic earlier this year. He is currently sitting up in his bedside chair, eating breakfast, does not appear grossly agitated but does exhibit some mild confabulation with regards to his history of present illness. Does not exhibit an obvious tremor or obvious problem with ocular motility. Does have difficulty with balance. Allergies Allergy/AdvReac Type Severity Reaction Status Date / Time Penicillins Allergy Severe SWELLING, Verified 03/01/21 17:28 TROUBLE BREATHING fluvastatin [From Lescol] Allergy Unknown Unknown Verified 03/06/21 13:09 lisinopril Allergy Unknown Unknown Verified 03/06/21 13:09 lovastatin Allergy Unknown PT DOESN'T Verified 03/01/21 17:28 REMEMBER REACTION-NAUSEA? simvastatin Allergy Unknown PT DOESN'T Verified 03/01/21 17:28 REMEMBER REACTION-NAUSEA? diazepam AdvReac Mild lethargy Verified 03/06/21 13:09 losartan AdvReac Mild Dizziness Verified 03/06/21 13:09 Dfeewuj-Cus-Ifu Reductase AdvReac Unknown NAUSEA Verified 03/01/21 17:28 Inhibitor Home Medications Medication Instructions Recorded Confirmed Type Fish Oil Cap 1,400 mg PO QID 03/01/21 03/01/21 History atorvastatin 10 mg PO HS 03/01/21 03/01/21 History budesonide-formoterol 2 puff INHALATION BID 03/01/21 03/01/21 History bupropion HCl 100 mg PO BID 03/01/21 03/01/21 History coenzyme Q10 400 mg PO DAILY 03/01/21 03/01/21 History diltiazem HCl 240 mg PO DAILY 03/01/21 03/01/21 History docusate sodium 100 mg PO BID PRN 03/01/21 03/01/21 History ezetimibe [Zetia] 5 mg PO DAILY 03/01/21 03/01/21 History gabapentin 200 mg PO HS 03/01/21 03/01/21 History loratadine [Claritin] 10 mg PO DAILY PRN 03/01/21 03/01/21 History metoprolol tartrate 50 mg PO BID 03/01/21 03/01/21 History montelukast 10 mg PO DAILY 03/01/21 03/01/21 History multivitamin 1 tab PO DAILY 03/01/21 03/01/21 History omeprazole 40 mg PO DAILY 03/01/21 03/01/21 History spironolactone 12.5 mg PO QPM 03/01/21 03/01/21 History spironolactone 25 mg PO QAM 03/01/21 03/01/21 History terazosin 10 mg PO HS 03/01/21 03/01/21 History tizanidine 4 mg PO QID PRN 03/01/21 03/01/21 History vitamin E 400 unit PO DAILY 03/01/21 03/01/21 History Patient History Medical History Arthritis Asthma Cognitive complaints Diabetes Diabetes mellitus, type 2 DIET MANAGED Hyperlipidemia Hypertension Hypertension Hypertension Lumbar radiculopathy Migraine Osteoarthritis Peripheral neuropathy SOB (shortness of breath) on exertion Tremor Type 2 diabetes mellitus Surgical History Cancer PROSTATE-REMOVAL 20 YRS AGO Fusion of spine CERVICAL H/O elbow surgery H/O prostatectomy History of bronchoscopy History of colonoscopy History of lobectomy of lung RIGHT MIDDLE LOBE-BENIGN History of surgery on arm LEFT ELBOW-TENDON SURG Status post lung surgery Family History Father Diabetes Cardiac disorder Unknown Hypertension Mother Cardiac disorder Social History Smoking Status: Former smoker Tobacco Type: Cigarettes Second Hand Exposure: No; Do You Dip or Chew Tobacco: No; Tobacco Cessation Education Requested by Patient: No Hx Alcohol Use: Yes Alcohol type: beer, wine and hard liquor Hx Substance Use: No Preferred Language: Kiswahili Communication Ability: Effective Corporate Director Of Human Resources Required: No Beliefs That Will Affect Care: None Current Living Situation: Spouse Other Information That Helps Us Care for You: No Feels Safe at Home: Yes Safety Concerns: Feels Safe At This Time Assistive Devices: Glasses and Walker Review of Systems Constitutional: no fever and no chills Eyes: no blind spots and no diplopia Ear, Nose, Mouth, Throat: no hearing loss Respiratory: no cough and no dyspnea Cardiovascular: no chest pain and no palpitations Gastrointestinal: no nausea and no vomiting Genitourinary: no urinary incontinence Musculoskeletal: no myalgia Integumentary: no rash and no lesions Neurologic: as per Subjective / HPI Psychiatric: no depression, no anxiety and no hallucinations Hematologic / Lymphatic: no easy bleeding and no easy bruising Exam (Neuro) Constitutional: well developed and well nourished; no acute distress Eyes: normal visual roque by confrontation, PERRL, normal accommodation and EOM intact bilaterally; no fundoscopic abnormality, no nystagmus and no papilledema Cardiovascular: Vessels: normal carotid upstroke; no carotid bruit Neurologic: Oriented to:: Person, Place and Time Memory: negative Short Term Intact and Remote Intact Attention: Span Intact and Concentration Intact Language: Naming Objects and Repeating Phrases Speech Fluency: negative Dysarthria Speech Aphasia: negative Aphasia Fund of Knowledge: Current Events, Past History and Vocabulary Cranial Nerves: Normal II (Visual roque full to confrontation, visual acuity normal), III, IV, (Pupils equal round reactive to light and accommodation, eye movements normal), V (Facial sensation intact), VII (There is no facial droop or weakness), VIII (Hearing intact), IX, X (Palate elevates to midline), XI (Shoulder shrug intact) and XII (Tongue protrudes to midline) Motor Strength: Normal Lower Extremities and Normal Upper Extremities; negative Pronator Drift Motor Tone: Normal Lower Extremities and Normal Upper Extremities Muscle Bulk/Involuntary Movements: No Involuntary Movements; negative Muscle Atrophy, Rest Tremor (Arm), Action Tremor and Head Tremor Sensation: Light Touch Intact, Pain/Temperature Intact, Vibration Intact and Proprioception Intact Coordination: Limited Balance; negative Dysdiadochokinesia, Finger-Nose Abnormal and Heel-Menjivar Abnormal Deep Tendon Reflexes: Rt Triceps: 2+, Lt Triceps: 2+, Rt Biceps: 2+, Lt Biceps: 2+, Rt Brachioradialis: 2+, Lt Brachioradialis: 2+, Rt Patellar: 2+, Lt Patellar: 2+, Rt Ankle: 1+ and Lt Ankle: 1+ Special Tests: negative Babinski Present Gait: Ataxic Details: No nystagmus. No ophthalmoplegia. Results & Data ([facility]) Vital Signs (Past 12 Hours) Vital Signs Temp Pulse Resp BP Pulse Ox 03/09/21 07:34 36.9 C 90 18 131/69 90 03/09/21 00:00 36.7 C 61 16 116/75 93 Laboratory Results WBC 9.14, hemoglobin 13.9, hematocrit 39.2, platelet count 261, sodium 138, potassium 3.8, BUN 15, creatinine 0.77, glucose 126, hemoglobin A1c 6.3, calcium 9.3, AST 18, ALT 69, ammonia less than 10.0, total CK 177, vitamin B1 147, vitamin B12 558 Diagnostic Findings Brain MRI is as described in the history of present illness. Electrocardiogram reveals sinus tachycardia with first-degree AV block with a short run of atrial tachycardia, 104 bpm. Coding Level of Care Code 30690 Initial Inpt Care Lvl 3 Diagnoses Alcohol use disorder Acute delirium R41.0 Ataxia R27.0 Memory loss R41.3
[2021-03-09] MEDS: THIAMINE HCL 100 MG TAB PO SCH (10:54)
[2021-03-09] MEDS: GABAPENTIN 100 MG CAP PO SCH (21:48)
[2021-03-09] MEDS: ENOXAPARIN INJ 40 MG/0.4 ML SYR SQ SCH (21:48)
[2021-03-09] MEDS: MONTELUKAST SODIUM 10 MG TABLET PO SCH (21:49)
[2021-03-09] MEDS: SPIRONOLACTONE 12.5 MG TAB PO SCH (21:50)
[2021-03-09] MEDS: TERAZOSIN HCL 5 MG CAP PO SCH (21:50)
[2021-03-10] MEDS: TOPIRAMATE 50 MG TAB PO SCH ×2 (08:59→21:59)
[2021-03-10] MEDS: THIAMINE HCL 100 MG TAB PO SCH (09:00)
[2021-03-10] MEDS: EZETIMIBE 10 MG TABLET PO SCH (09:00)
[2021-03-10] MEDS: MULTIVITAMIN TAB PO SCH (09:00)
[2021-03-10] MEDS: dilTIAZem HCL 240 MG CAPCR PO SCH (09:00)
[2021-03-10] MEDS: SPIRONOLACTONE 25 MG TAB PO SCH (09:00)
[2021-03-10] MEDS: buPROPion SR 100 MG TABCR PO SCH ×2 (09:00→21:56)
[2021-03-10] MEDS: PANTOprazole 40 MG TAB PO SCH (09:00)
[2021-03-10] MEDS: LORATADINE 10 MG TAB PO SCH (09:00)
[2021-03-10] MEDS: FLUTICASONE/VILANTEROL 200/25MCG 14 PUFFS/INHALER INH SCH (09:00)
[2021-03-10] MEDS: METOPROLOL TARTRATE 50 MG TAB PO SCH ×2 (09:00→21:57)
--- NOTE | 2021-03-10 20:16 | Hospitalist Progress Note ---
Date of Service March 10, 2021 Assessment & Plan (1) Acute delirium: Continued delirium after alcohol withdrawal. MRI brain negative for acute pathology. Possible Wernicke/Korsakoffs - Continued ataxia and anterograde memory loss. IV thiamine 500 mg TID given for 2 days then 250 mg IV daily till discharge. B1 level WNL - therefore suspect limited reversibility with high dose IV thiamine. Benzodiazepines appear to be mostly of his system at this time however they did appear to make him more delirious. 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 Possibility for further improvement but I am concerned this is his new baseline. Consult neurology - Dr Guan, requested by family since he sees him as an outpatient - ?reduce Topamax as reduction has helped his cognition in the past. (2) Altered mental status: As above delirium (3) Alcohol use disorder: Continue thiamine 100mg PO daily on discharge B12 level WNL Will complete workup with folate level in AM (4) Delirium tremens: Now resolved. Ongoing delirium not suspected to be due to alcohol withdrawal. (5) Sepsis: Met sepsis criteria, present on admission. Possible diagnosis although procalcitonin negative possibly suggests main presenting problem on admission was delirium tremens and CXR finding was mild aspiration possibly precipitated by atorvastatin causing nausea and vomiting. Serum lactate is normal Suspect source is right sided CAP, despite negative procalcitonin Blood culture negative No RUQ pain, normal LFTs to suggest cholecystitis as noted on CT. (6) Pneumonia: Right middle/lower lobe pneumonia on CXR Ceftriaxone + Azithromycin (now finished). MRSA nose swab negative - vancomycin discontinued (7) Pulmonary nodule: Questionable 7 mm nodule seen on CT of the abdomen/pelvis Follow up CT in 4-6 weeks (8) Type 2 diabetes mellitus: Noted on old record but patient is not on diabetic medications per recent patient neurology note HbA1c 6.3 Given only requiring odd unit and glucose appears well controlled will d/c further BSG checks to avoid exacerbating delirium (9) Hypertension: Continue usual outpatient home medications with diltiazem, metoprolol and spironolactone. (10) Hypercholesteremia: Patient is on Zetia. Intolerant to atorvastatin (recently restarted this and caused nausea/vomiting) (11) Migraine: Patient neurology notes reviewed, will continue gabapentin and topiramate as per outpatient dosing (12) DVT prophylaxis: Lovenox 40mg SQ daily Medically stable for discharge Admission and Anticipated Discharge Date Admission Date: March 01, 2021 Subjective Pt is pleasant and conversational, remains very weak is looking toward physical rehab, is transitioned to po thiamine Review of Systems Review of Systems: Mild distress and fatigue no headache, no visual changes no speech or swallowing issues no chest pain, pressure or palpitations no shortness of breath, cough or wheezes no abdominal pain, nausea or vomiting, diarrhea or constipation no dysuria, hematuria or frequency no focal joint pain or swelling no back pain, CVA tenderness or radicular pain no bruising, bleeding or rashes no focal signs of weakness or numbness or altered sensation, definitely moves stiffly and not coordinated Physical Exam Physical Exam: The patient appeared well nourished and normally developed. Vital signs as documented. Head exam is normocephalic atraumatic Neck is without JVD, thyromegaly, or carotid bruits. Lungs are some rhonchi heard in the right lung base clear with deep inspiration and cough Cardiac exam, Rhythm is regular.. No murmurs, rubs or gallops. Abdominal exam reveals normal bowel sounds, soft non tender, no masses Extremities are nonedematous and both pedal pulses are present Neurologic exam is alert and oriented x3, no focal loss of strength or sensation Overall seems fairly deconditioned Skin is without bruises or rashes Psychologically is without concerns for anxiety or depression Results & Data Results & Data ([facility]) Vital Signs (Past 12 Hours) Vital Signs Pulse BP 03/10/21 09:02 89 121/75 PG Care Time/CCT Total # of Minutes Spent Total Time Spent with Patient: Total time spent is greater than 50% in coordination of care (as documented) at patient's floor/unit and/or counseling patient: Coding Level of Care Code 19953 Subseq Hosp Care Lvl 1 Diagnoses Acute delirium R41.0 Altered mental status R41.82 Alcohol use disorder Delirium tremens F10.231 Sepsis A41.9 Pneumonia J18.9 Pneumonia type: due to unspecified organism Laterality: right Lung location: middle lobe of lung Pulmonary nodule R91.1 Type 2 diabetes mellitus E11.9 Diabetes mellitus residential insulin use: 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 Diabetes mellitus complication status: without complication Hypertension I10 Hypertension type: essential hypertension Hypercholesteremia E78.00 Migraine G43.909 DVT prophylaxis Z29.9 (1) Pneumonia Pneumonia type: due to unspecified organism Laterality: right Lung location: middle lobe of lung Qualified Code(s): J18.9 - Pneumonia, unspecified organism (2) Type 2 diabetes mellitus Diabetes mellitus 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
[2021-03-10] MEDS: ENOXAPARIN INJ 40 MG/0.4 ML SYR SQ SCH (21:56)
[2021-03-10] MEDS: GABAPENTIN 100 MG CAP PO SCH (21:57)
[2021-03-10] MEDS: MONTELUKAST SODIUM 10 MG TABLET PO SCH (21:57)
[2021-03-10] MEDS: SPIRONOLACTONE 12.5 MG TAB PO SCH (21:58)
[2021-03-10] MEDS: TERAZOSIN HCL 5 MG CAP PO SCH (21:58)
[2021-03-11] MEDS: dilTIAZem HCL 240 MG CAPCR PO SCH (08:59)
[2021-03-11] MEDS: MULTIVITAMIN TAB PO SCH (08:59)
[2021-03-11] MEDS: PANTOprazole 40 MG TAB PO SCH (08:59)
[2021-03-11] MEDS: TOPIRAMATE 50 MG TAB PO SCH (08:59)
[2021-03-11] MEDS: LORATADINE 10 MG TAB PO SCH (08:59)
[2021-03-11] MEDS: SPIRONOLACTONE 25 MG TAB PO SCH (09:00)
[2021-03-11] MEDS: EZETIMIBE 10 MG TABLET PO SCH (09:00)
[2021-03-11] MEDS: METOPROLOL TARTRATE 50 MG TAB PO SCH (09:00)
[2021-03-11] MEDS: buPROPion SR 100 MG TABCR PO SCH (09:00)
[2021-03-11] MEDS: FLUTICASONE/VILANTEROL 200/25MCG 14 PUFFS/INHALER INH SCH (09:00)
[2021-03-11] MEDS: THIAMINE HCL 100 MG TAB PO SCH (09:00)
--- NOTE | 2021-03-11 19:41 | Discharge Summary ---
Date of Service March 11, 2021 Admission HPI Per Admitting Provider This is a 75-year-old male with past medical history of type 2 diabetes mellitus, hypercholesterolemia, migraine, and mild memory loss that presents today complaining of generalized weakness. Patient is accompanied by his were both pleasant and good historians. Patient tells me has been having symptoms for approximately 7-8 days. He is unclear exactly when things started but at first noted some mild weakness. He was having difficulty ambulating long distances as he felt that his legs would give out on him. He denied any chest pain or palpitations but over the past few days noted some worsening dyspnea on exertion. He denied any shortness of breath at rest. He has weakness continue to worsen to the point that he actually had a fall 2 days ago, striking his head but he did not lose consciousness. He has had some mild cough with minimal production, mostly white sputum. Today the notes that the patient seemed to be transiently confused at times and was having trouble staying awake. The patient noted some dry heaves this morning as well, he does admit to some nausea and diminished appetite but denies vomiting, constipation, or diarrhea. Patient also started to display some rigors, the combination of the symptoms prompted the to bring the patient to the emergency room for further evaluation. At the time my evaluation, the patient was febrile at 38.2 C. His O2 sat was 92-93% on room air. He did appear to be rigorous and was given extra warmed blankets. He did not appear to be in any significant cardiopulmonary distress and was able to relate his history without much confusion. Principal Diagnosis pneumonia Wernicke psychosis alcohol abuse deconditioning and weakness Discharge Exam The patient appeared well nourished and normally developed. Vital signs as documented. Head exam is normocephalic atraumatic Neck is without JVD, thyromegaly, or carotid bruits. Lungs are clear to auscultation, no focal loss of breath sounds Cardiac exam, Rhythm is regular.. No murmurs, rubs or gallops. Abdominal exam reveals normal bowel sounds, soft non tender, no masses no o rganomegaly Extremities are nonedematous and both pedal pulses are present Neurologic exam is alert and oriented, his gait is limited his balance is off he is using a walker to walk some short distances Skin is without bruises or rashes Psychologically is without concerns for anxiety or depression Discharge Data Allergies Allergy/AdvReac Type Severity Reaction Status Date / Time Penicillins Allergy Severe SWELLING, Verified 03/01/21 17:28 TROUBLE BREATHING fluvastatin [From Lescol] Allergy Unknown Unknown Verified 03/06/21 13:09 lisinopril Allergy Unknown Unknown Verified 03/06/21 13:09 lovastatin Allergy Unknown PT DOESN'T Verified 03/01/21 17:28 REMEMBER REACTION-NAUSEA? simvastatin Allergy Unknown PT DOESN'T Verified 03/01/21 17:28 REMEMBER REACTION-NAUSEA? diazepam AdvReac Mild lethargy Verified 03/06/21 13:09 losartan AdvReac Mild Dizziness Verified 03/06/21 13:09 Uzvinuh-Kva-Sbi Reductase AdvReac Unknown NAUSEA Verified 03/01/21 17:28 Inhibitor Consultations 03/01/21 16:15 ED Decision to Admit Stat 03/08/21 15:52 Consult Neurology Routine 03/09/21 09:13 Consult Lung Nodule Program Routine Ordered Studies 03/01/21 15:12 CT abd pelvis IV con only Stat CT head/brain wo con Stat 03/05/21 10:18 MR brain wo con Urgent Hospital Course (1) Acute delirium: resolved delirium after alcohol withdrawal. MRI brain negative for acute pathology. Possible Wernicke/Korsakoffs - Continued ataxia and anterograde memory loss. IV thiamine 500 mg TID given for 2 days then 250 mg IV daily now 100mg po daily Consult neurology - Dr Guan, requested by family since he sees him as an outpatient - ?reduce Topamax as reduction has helped his cognition in the past. (2) Altered mental status: resolved (3) Alcohol use disorder: Continue thiamine 100mg PO daily on discharge B12 level WNL (4) Delirium tremens: Now resolved. Ongoing delirium not suspected to be due to alcohol withdrawal. (5) Sepsis: Met sepsis criteria, present on admission. Possible diagnosis although procalcitonin negative possibly suggests main presenting problem on admission was delirium tremens and CXR finding was mild aspiration possibly precipitated by atorvastatin causing nausea and vomiting. Serum lactate is normal Suspect source is right sided CAP, despite negative procalcitonin Blood culture negative No RUQ pain, normal LFTs to suggest cholecystitis as noted on CT. (6) Pneumonia: Right middle/lower lobe pneumonia on CXR Ceftriaxone + Azithromycin (now finished). MRSA nose swab negative - vancomycin discontinued (7) Pulmonary nodule: Questionable 7 mm nodule seen on CT of the abdomen/pelvis Follow up CT in 4-6 weeks, lung nodule program (8) Type 2 diabetes mellitus: Noted on old record but patient is not on diabetic medications per recent patient neurology note HbA1c 6.3 Given only requiring odd unit and glucose appears well controlled will d/c further BSG checks to avoid exacerbating delirium (9) Hypertension: Continue usual outpatient home medications with diltiazem, metoprolol and spironolactone. (10) Hypercholesteremia: Patient is on Zetia. Intolerant to atorvastatin (recently restarted this and caused nausea/vomiting) (11) Migraine: Patient neurology notes reviewed, will continue gabapentin and topiramate as per outpatient dosing Total Time Total Time Spent Total Time Spent (In Minutes): It required greater than 30 minutes to prepare this patient for discharge Discharge Plan Discharge Items Patient Disposition: [facility] Reason For Visit: SEPSIS,PNA Discharge Diagnosis: pneumonia Wernekies encephalopathy improved after thiamine Activity: Per Instructions section Activity Comment: per PT and OT, currently a fall risk Non-emergency contact: Primary Care Provider and Neurologist Call non-emergency contact if: your symptoms worsen Follow-up/Referrals: Dea Waldron PA-C [Primary Care Provider] - Diet: Carb Consistent or DM2 Addtl Attending Provider Instructions: please strongly consider abstinence from alcohol take thiamine daily until you are told to transition to multivitamin Pending Studies at Discharge: No Stand-Alone Forms: My [facility] Skilled Items Patient informed of condition?: Yes DNR: No Discharge Level of Care: Skilled Communicable Disease: No Discharge Prognosis: Stable Lines: None Urinary Catheter: No Medications and DC Order Prescriptions: New thiamine HCl (vitamin B1) [Vitamin B-1] 100 mg Tablet 100 mg PO QAM Qty: 30 RF: 3 gabapentin 100 mg Capsule 200 mg PO HS Qty: 30 RF: 0 topiramate 50 mg Tablet 50 mg PO BID Qty: 60 RF: 0 Continued multivitamin Tablet 1 tab PO DAILY RF: 0 diltiazem HCl 240 mg Capsule,Extended Release 24 Hr 240 mg PO DAILY RF: 0 spironolactone 25 mg tablet 25 mg PO QAM RF: 0 spironolactone 25 mg Tablet 12.5 mg PO QPM RF: 0 terazosin 10 mg Tablet 10 mg PO HS RF: 0 bupropion HCl 100 mg Tablet 100 mg PO BID RF: 0 metoprolol tartrate 50 mg Tablet 50 mg PO BID RF: 0 vitamin E 400 unit Tablet 400 unit PO DAILY RF: 0 montelukast 10 mg Tablet 10 mg PO DAILY RF: 0 docusate sodium 100 mg Tablet 100 mg PO BID PRN (Reason: Constipation) RF: 0 loratadine [Claritin] 10 mg Tablet 10 mg PO DAILY PRN (Reason: allergies) RF: 0 budesonide-formoterol 160-4.5 mcg/actuation Hfa Aerosol Inhaler 2 puff INHALATION BID RF: 0 omeprazole 20 mg Tablet,Delayed Release (Dr/Ec) 40 mg PO DAILY RF: 0 coenzyme Q10 400 mg Capsule 400 mg PO DAILY RF: 0 Fish Oil Cap 1,400 mg PO QID RF: 0 Changed ezetimibe [Zetia] 10 mg Tablet 10 mg PO DAILY Qty: 0 RF: 0 Discontinued atorvastatin 10 mg Tablet 10 mg PO HS RF: 0 tizanidine 4 mg Tablet 4 mg PO QID PRN (Reason: muscle spasms) RF: 0 gabapentin 100 mg Tablet 200 mg PO HS RF: 0 Discharge Orders: Discharge Order (Routine); Ordered 03/11/21 Ordered By: Guanakito Parkinson/Other Patient Handouts: Managing Type 2 Diabetes, A1C Admission Data Admit Date/Time: 03/01/21 17:21 Attending Provider: Guanakito Schmitz Admit Provider: Luis Eduardo Fregoso Primary Care Provider: Dea Waldron Other Providers: [facility] ; Luis Eduardo Fregoso ; [facility] ; Velasquez Guan Other Interventions: Discharge Summary Assessment (RN) Last Done: 03/11/21 12:04 Coding Level of Care Code D/C Day Management >30 mins Diagnoses Acute delirium R41.0 Altered mental status R41.82 Alcohol use disorder Delirium tremens F10.231 Sepsis A41.9 Pneumonia J18.9 Pneumonia type: due to unspecified organism Laterality: right Lung location: middle lobe of lung Pulmonary nodule R91.1 Type 2 diabetes mellitus E11.9 Diabetes mellitus intermediate manager insulin use: without intermediate manager use Diabetes mellitus complication status: without complication Hypertension I10 Hypertension type: essential hypertension Hypercholesteremia E78.00 Migraine G43.909
== END 2021-03-11 13:05 | DRG 871 ==
LOC: ED 14:47 → 2S 17:21 → SUATTDRO 17:21 → 2S 19:30 → 2W 03-03 15:21 → 3E 03-05 09:36

== ENCOUNTER 2024-09-05 10:18 | Inpatient (IN) ==
--- NOTE | 2024-09-05 10:22 | Emergency Department Note ---
Impression & Plan Acute hypoxemic respiratory failure, Hypertensive emergency, Acute exacerbation of CHF (congestive heart failure) ED Provider Note NAME: MANDI TILLMAN Jr AGE: 78 SEX: M : 1945 ARRIVES VIA: Ambulance INFORMANT: Patient, ED PROVIDER(S): Moreno Santos MD CHIEF COMPLAINT: Shortness of breath, hypertension MEDICAL DECISION MAKING: Patient presents to concern for shortness of breath and hypertension. IV was established and blood work was obtained. Patient's blood work shows a normal white count H&H patient's kidney function unremarkable. BNP is elevated at 138 troponin negative. Urinalysis and BioFire negative. Chest x-ray does show concern for pulmonary edema. Patient was ordered IV Lasix as well as 1 sublingual nitro to help with blood pressure and preload. I did inform the patient of the findings and recommendations. I did speak the on-call hospital service and the patient was admitted to the medicine service. Critical Care: I have personally spent 45 minutes of critical care time in direct management of this patient. This includes bedside care, interpretation of diagnostic studies, and testing, discussion with consultants, patient, and family members, and other require inpatient management activities. This 45 minutes is in excess of all separately billable procedures. Discussion w/ other healthcare providers: Pepito Muñoz PA-C and Dr. Rivera inpatient medicine service Prior /Outside records reviewed: None Differential diagnosis: Reactive airway disease, hypertensive urgency, volume overload, pneumonia, pneumothorax, COPD, CHF, ACS, pulmonary embolism, musculoskeletal, GERD as well as other pathologies were considered. Diagnostics, as interpreted by me: ECG: Sinus with first-degree AV block, rate of 67 prolonged MD, normal QRS, left axis deviation, T wave inversion in aVL. No obvious STEMI. Cardiac monitoring: An order was placed for continuous cardiac monitoring. The monitor shows a rate of 69 with sinus rhythm. Patient was placed on pulse oximetry Medical decision rules: None Imaging studies: I informally interpreted the patient's chest x-ray shows pulmonary edema with formal report to follow. HPI: Patient presents due to concern for high blood pressure and shortness of breath. The patient states that his symptoms began about 3 days ago. The patient states that he not been taking his blood pressure over the but only began taking it several days ago because of the shortness of breath and noticed that his systolic blood pressures were in the 190s but as high as 200s. Patient denies any chest pains but has had orthopnea and PND. The patient states that he has had cough with productive clear sputum. Patient denies any smoking history. [facility] reports [facility] and had been on as many as 5 blood pressure medications and had been trialed down to about 2 until several months ago he was taken off of his diltiazem. Patient noticed that thereafter instead of being in the 100s he was in the 140s. Patient states that he is compliant with his metoprolol and takes a half dose in the morning half dose in the evening. Patient denies any alcohol tobacco or drug use. No known sick contacts or recent travel. The patient reportedly has had a cough for several months. PAST MEDICAL HISTORY: See Below PAST SURGICAL HISTORY: See Below SOCIAL HISTORY: See Below HOME MEDICATIONS: See Below ALLERGIES: See Below VITALS: See Below PHYSICAL EXAMINATION: GENERAL: Nasal cannula in place wearing glasses. Nontoxic in appearance. EYE EXAM: Normal conjunctiva. PERRL, no anisocoria and EOM's grossly intact w/o pain. OROPHARYNX: Moist mucus membranes, grossly normal dentition. NECK: Trachea midline, no stridor. LUNGS: Poor inspiratory effort. Bibasilar crackles noted. HEART: NSR, no MRG. ABDOMEN: Abdomen soft, non-tender, no masses, no rebound or guarding. BACK: No CVA TTP. SKIN: No rashes and no bruising. UPPER EXTREMITIES: Upper extremities are grossly normal. LOWER EXTREMITIES: Grossly normal, 1-2+ symmetric lower extremity edema without calf pain or erythema. NEURO EXAM: A&O x3, cranial nerves II-XII grossly intact, normal speech, moves all 4 extremities. Past Med/Surg History Problem List Hypertensive urgency Acute hypoxemic respiratory failure (Acute) Acute exacerbation of CHF (congestive heart failure) (Acute) Hypertensive emergency (Acute) Daily urinary incontinence Gait apraxia Cerebral ventriculomegaly Rupture of left proximal biceps tendon with repair Subjective memory complaints Prostate cancer Urinary urgency H/O alcohol dependence Elevated CPK Muscle cramp Lumbosacral radiculopathy Idiopathic polyneuropathy Alcohol use disorder Pulmonary nodule Acute delirium Altered mental status Delirium tremens Confusion (Acute) Pneumonia (Acute) Sepsis (Acute) Pneumonia Sepsis Ataxia Mixed headache Memory loss Hypercholesteremia (Chronic) Bladder neoplasm (Acute) Cervical stenosis of spine (Acute) Abnormal brain MRI (Acute) Arthritis (Chronic) Cognitive complaints (Acute) Common migraine without aura (Chronic) Hypertension (Chronic) Lumbar radiculopathy (Chronic) Peripheral neuropathy (Chronic) Tremor (Chronic) Type 2 diabetes mellitus (Chronic) diet controlled per pt Encounter for pre-operative examination Migraine Asthma (Chronic) Hypertension (Chronic) Diabetes (Chronic) Medical History History of injury of tendon bicep tear w/ repair History of alcohol withdrawal delirium (2020) Hypotension 02/07/25- states had blood pressure medication adjustment early 12/2023 by pcp; bp meds currently back up to previous dosages. History of pneumonia (2020) Tremor Pulmonary nodule monitoring Peripheral neuropathy Migraine Diabetes diet controlled Arthritis History of prostate cancer (2019) History of COVID-2021- no hosp; resolved H/O alcohol dependence has approx 1 drink per month now > "quit in February 2022" Osteoarthritis SOB (shortness of breath) on exertion 02/08/24- recent increase in SOB, nausea and weakness with exertion (home bp reading during episode 112/66) Asthma uses rescue inhaler 1-2 times per week Hyperlipidemia Hypertension Surgical History History of cataract surgery right Status post lung surgery H/O elbow surgery H/O prostatectomy History of bronchoscopy History of colonoscopy History of surgery on arm LEFT ELBOW-TENDON SURG Fusion of spine CERVICAL > "slightly" limited ROM side to side History of lobectomy of lung RIGHT MIDDLE LOBE-BENIGN Family History Father Diabetes Cardiac disorder Unknown Hypertension Mother Cardiac disorder Social History Smoking Status: Never smoker Tobacco Type: Cigarettes Second Hand Exposure: No; Do You Dip or Chew Tobacco: No; Hx Alcohol Use: Yes Alcohol type: beer Hx Substance Use: No Preferred Language: Sinhala Communication Ability: Effective Admin Asst Required: No Beliefs That Will Affect Care: None Current Living Situation: Spouse Feels Safe at Home: Yes Assistive Devices: Cane, Denture - Upper, Denture - Lower, Glasses and Hearing Aid - Bilateral Allergies Allergies Allergy/AdvReac Type Severity Reaction Status Date / Time Penicillins Allergy Severe SWELLING, Verified 09/05/24 12:52 TROUBLE BREATHING fluvastatin [From Lescol] Allergy Unknown Unknown Verified 09/05/24 12:52 lisinopril Allergy Unknown Unknown Verified 09/05/24 12:52 lovastatin Allergy Unknown PT DOESN'T Verified 09/05/24 12:52 REMEMBER REACTION-NAUSEA? simvastatin Allergy Unknown PT DOESN'T Verified 09/05/24 12:52 REMEMBER REACTION-NAUSEA? diazepam AdvReac Mild lethargy Verified 09/05/24 12:52 losartan AdvReac Mild Dizziness Verified 09/05/24 12:52 Kzsxiit-BCG-YvT Reductase AdvReac Unknown NAUSEA Verified 09/05/24 12:52 Inhibitor [Kpibyxw-Vep-Wyy Reductase Inhibitor] Home Meds Home Medications Medication Instructions Recorded Confirmed coenzyme Q10 400 mg capsule 400 mg PO DAILY 03/01/21 09/05/24 loratadine 10 mg tablet (Claritin) 10 mg PO DAILY PRN allergies 03/01/21 09/05/24 montelukast 10 mg tablet 10 mg PO DAILY 03/01/21 09/05/24 multivitamin 1 tab PO DAILY 03/01/21 09/05/24 omega 7-ecu-hmx-fish oil 1,000 mg 1,400 mg PO QID ##0 03/01/21 09/05/24 (120 mg-180 mg) capsule (Fish Oil) omeprazole 20 mg tablet,delayed 40 mg PO QAM 03/01/21 09/05/24 release naltrexone 50 mg tablet 50 mg PO HS 11/16/21 09/05/24 thiamine HCl (vitamin B1) 100 mg 300 mg PO BID 04/28/23 09/05/24 tablet (Vitamin B-1) diclofenac sodium 75 mg 75 mg PO BID PRN pain 05/02/23 09/05/24 tablet,delayed release lidocaine 5 % topical patch 1 patch topical DAILY 05/02/23 09/05/24 albuterol sulfate 90 mcg/actuation 2 inh inhalation DAILY PRN 12/12/23 09/05/24 aerosol inhaler Shortness Of Breath Or Wheezing clotrimazole 1 % topical cream 1 applic topical BID PRN Rash 12/12/23 09/05/24 fluticasone 500 mcg-salmeterol 50 1 inh inhalation BID 12/12/23 09/05/24 mcg/dose blistr powdr for inhalation (Wixela Inhub) aspirin 81 mg tablet,delayed 81 mg PO DAILY 09/05/24 09/05/24 release clindamycin phosphate 1 % topical 1 applic topical BID PRN Breakouts 09/05/24 09/05/24 solution hydrocortisone 2.5 % topical cream 1 applic topical DAILY PRN 09/05/24 09/05/24 Psoriasis lanolin alcohols-mineral 1 applic topical DAILY PRN Dry Skin 09/05/24 09/05/24 oil-w.petrolatum-ceresin topical cream (Eucerin topical cream) magnesium 250 mg tablet 250 mg PO DAILY 09/05/24 09/05/24 metoprolol tartrate 25 mg tablet 12.5 mg PO BID 09/05/24 09/05/24 pregabalin 225 mg capsule 225 mg PO BID 09/05/24 09/05/24 salicylic acid 3 % shampoo 1 ea topical DAILY 09/05/24 09/05/24 selenium sulfide 2.5 % lotion 1 applic topical Q OTHER DAY 09/05/24 09/05/24 terazosin 10 mg capsule 10 mg PO HS 09/05/24 09/05/24 topiramate 25 mg tablet 0 mg PO BID Migraine Prevention 09/05/24 09/05/24 vibegron 75 mg tablet (Gemtesa) 0 mg PO DAILY 09/05/24 09/05/24 vitamin E 268 mg (400 unit) capsule 268 mg PO DAILY 09/05/24 09/05/24 Previous Rx's Medication Instructions Recorded ezetimibe 10 mg tablet (Zetia) 10 mg PO DAILY #0 tabs 03/11/21 cholecalciferol (vitamin D3) 50 50 mcg PO DAILY #30 caps 04/12/22 mcg (2,000 unit) capsule oxybutynin chloride 5 mg tablet 5 mg PO BID #60 tabs 07/17/24 Results & Data (ED) Vital Signs Vital Signs - 24 hr 09/05/24 10:29 09/05/24 10:36 09/05/24 10:42 Temperature 36.6 C Temperature Source Oral Pulse Rate 67 71 66 Pulse Rate from SpO2 Sensor Respiratory Rate 20 17 Respiratory Effort / Characteristics Spontaneous Short of Breath Respiratory Depth Normal Respiratory Pattern Regular Blood Pressure 173/120 H Blood Pressure Mean 137 Blood Pressure Position Lying Pulse Oximetry 86 L 94 Oxygen Delivery Method Room Air Nasal Cannula Oxygen Flow Rate 2 Sepsis Recent Fever Within 48 Hours No Sepsis New/Unexplained Change in Mental Status N/A Sepsis Action Taken by Nursing No Action Required 09/05/24 10:50 09/05/24 11:01 09/05/24 11:12 Temperature Temperature Source Pulse Rate 68 63 Pulse Rate from SpO2 Sensor 66 Respiratory Rate 17 Respiratory Effort / Characteristics Respiratory Depth Respiratory Pattern Blood Pressure 162/91 H Blood Pressure Mean 111 Blood Pressure Position Pulse Oximetry 94 Oxygen Delivery Method Oxygen Flow Rate Sepsis Recent Fever Within 48 Hours Sepsis New/Unexplained Change in Mental Status Sepsis Action Taken by Nursing 09/05/24 11:30 09/05/24 11:31 09/05/24 11:35 Temperature Temperature Source Pulse Rate 65 Pulse Rate from SpO2 Sensor 64 Respiratory Rate 17 Respiratory Effort / Characteristics Respiratory Depth Respiratory Pattern Blood Pressure 205/104 H 193/104 H Blood Pressure Mean 122 125 Blood Pressure Position Pulse Oximetry 92 Oxygen Delivery Method Oxygen Flow Rate Sepsis Recent Fever Within 48 Hours Sepsis New/Unexplained Change in Mental Status Sepsis Action Taken by Nursing 09/05/24 11:54 09/05/24 12:00 09/05/24 12:30 Temperature Temperature Source Pulse Rate 62 Pulse Rate from SpO2 Sensor 60 Respiratory Rate 14 Respiratory Effort / Characteristics Respiratory Depth Respiratory Pattern Blood Pressure 198/100 H 194/104 H Blood Pressure Mean 144 108 Blood Pressure Position Pulse Oximetry 96 Oxygen Delivery Method Oxygen Flow Rate Sepsis Recent Fever Within 48 Hours Sepsis New/Unexplained Change in Mental Status Sepsis Action Taken by Nursing 09/05/24 12:39 09/05/24 12:57 09/05/24 13:01 Temperature Temperature Source Pulse Rate 64 68 Pulse Rate from SpO2 Sensor 66 65 Respiratory Rate 17 21 Respiratory Effort / Characteristics Respiratory Depth Respiratory Pattern Blood Pressure 154/85 H Blood Pressure Mean 106 Blood Pressure Position Pulse Oximetry 94 95 Oxygen Delivery Method Oxygen Flow Rate Sepsis Recent Fever Within 48 Hours Sepsis New/Unexplained Change in Mental Status Sepsis Action Taken by Nursing 09/05/24 13:09 Temperature Temperature Source Pulse Rate 68 Pulse Rate from SpO2 Sensor 59 L Respiratory Rate 19 Respiratory Effort / Characteristics Respiratory Depth Respiratory Pattern Blood Pressure Blood Pressure Mean Blood Pressure Position Pulse Oximetry 94 Oxygen Delivery Method Oxygen Flow Rate Sepsis Recent Fever Within 48 Hours Sepsis New/Unexplained Change in Mental Status Sepsis Action Taken by Jail Medications Current Medication List: was personally reviewed by la Laboratory Data Attestation: I reviewed the patient's lab results. 09/05/24 10:40 09/05/24 10:40 Lab Results 09/05/24 09/05/24 09/05/24 Range/Units 10:40 10:50 11:33 WBC 8.45 (4.8-10.8) K/ul RBC 4.86 (4.70-6.10) M/uL Hgb 14.1 (14.0-18.0) g/dl Hct 42.1 (42.0-52.0) % MCV 86.6 (80.0-100.0) fL MCH 29.0 (25.0-34.0) pg MCHC 33.5 (32.0-36.0) g/dL RDW Std Deviation 48.0 H (36.4-46.3) fL RDW Coeff of Roni 15.2 H (11.5-14.5) % Plt Count 196 (130-400) K/uL MPV 11.9 (9.4-12.4) fL Immature Gran % (Auto) 0.5 % Neut % (Auto) 66.3 % Lymph % (Auto) 17.4 % Lee % (Auto) 8.3 % Eos % (Auto) 6.6 % Baso % (Auto) 0.9 % Neut # (Auto) 5.60 (1.40-6.50) K/uL Lymph # (Auto) 1.47 (1.20-3.40) K/uL Lee # (Auto) 0.70 H (0.11-0.59) K/uL Eos # (Auto) 0.56 H (0.00-0.50) K/uL Baso # (Auto) 0.08 (0.00-0.20) K/uL Immature Gran # (Auto) 0.04 (0.01-0.20) K/uL PT 10.8 (9.0-12.0) Seconds INR 1.0 (0.9-1.1) APTT 28 (21-31) Seconds PTT Ratio 1.0 Sodium 142 (136-145) mmol/L Potassium 3.8 (3.5-5.1) mmol/L Chloride 110 H (98-107) mmol/L Carbon Dioxide 25 (21-32) mmol/L Anion Gap 7 (3-11) BUN 19 (6-23) mg/dl Creatinine 0.87 (0.6-1.4) mg/dl Est Cr Clr Drug Dosing Not Reportable eGFR 88.87 BUN/Creatinine Ratio 21.8 H (10-20) Glucose 129 H (70-99(Fasting)) mg/dl Calcium 9.4 (8.6-10.3) mg/dl Magnesium 2.0 (1.7-2.4) mg/dl Total Bilirubin 0.5 (0.2-1.0) mg/dl AST 38 (13-39) U/L ALT 33 (7-52) U/L Alkaline Phosphatase 49 (34-104) U/L Troponin I High Sens 10.8 (0-20) pg/ml B-Natriuretic Peptide 130 H (0-100) pg/ml Total Protein 6.5 (6.0-8.3) gm/dl Albumin 3.9 (3.4-5.0) gm/dl Globulin 2.6 (2.5-4.0) gm/dl Albumin/Globulin Ratio 1.5 (0.9-2) Urine Color Yellow Urine Appearance Clear (Clear) Urine pH 5.5 (4.5-7.5) Ur Specific [place] 1.017 (1.000-1.030) Urine Protein Negative (Negative) Urine Glucose (UA) Negative (Negative) Urine Ketones Negative (Negative) Urine Blood Negative (Negative) Urine Nitrite Negative (Negative) Urine Bilirubin Negative (Negative) Urine Urobilinogen Negative (Negative) Ur Leukocyte Esterase Negative (Negative) Adenovirus (PCR) Not Detected (NotDetected) B. pertussis DNA (PCR) Not Detected (NotDetected) B.parapertussis DNA PCR Not Detected (NotDetected) C. pneumoniae DNA (PCR) Not Detected (NotDetected) Coronavirus OC43 (PCR) Not Detected (NotDetected) Coronavirus HKU1 (PCR) Not Detected (NotDetected) Coronavirus 229E (PCR) Not Detected (NotDetected) SARS-CoV-2 (PCR) Not Detected (NotDetected) Coronavirus NL63 (PCR) Not Detected (NotDetected) Human Metapneumovir PCR Not Detected (NotDetected) Influenza Type A (PCR) Not Detected (NotDetected) Influenza Type B (PCR) Not Detected (NotDetected) M. pneumoniae (PCR) Not Detected (NotDetected) Parainfluenza 1 (PCR) Not Detected (NotDetected) Parainfluenza 2 (PCR) Not Detected (NotDetected) Parainfluenza 3 (PCR) Not Detected (NotDetected) Parainfluenza 4 (PCR) Not Detected (NotDetected) RSV (PCR) Not Detected (NotDetected) Entero/Rhino (PCR) Not Detected (NotDetected) Administered Medications Discontinued Medications Acetaminophen (Acetaminophen 500 Mg Tab) 1,000 mg PO NOW STA Stop: 09/05/24 12:16 Last Admin: 09/05/24 12:32 Dose: 1,000 mg Documented By: TNK Albuterol (Albut/Ipratrop 3mg/0.5mg Neb 3 Ml Vial) 3 ml NEB NOW STA; Protocol Stop: 09/05/24 13:38 Last Admin: 09/05/24 13:48 Dose: 3 ml Documented By: TNK Furosemide (Furosemide 40 Mg/4 Ml Vial) 40 mg IV ONE ONE Stop: 09/05/24 12:16 Last Admin: 09/05/24 12:32 Dose: 40 mg Documented By: TNK Nitroglycerin (Nitroglycerin Sl 0.4 Mg/Tab Tab) 0.4 mg SL NOW STA Stop: 09/05/24 12:16 Last Admin: 09/05/24 12:33 Dose: 0.4 mg Documented By: TNK Imaging Data Radiologist's Impression: Chest X-Ray 09/05/24 10:42 XR chest 1V portable CLINICAL HISTORY: Dyspnea TECHNIQUE: Single frontal radiograph of the chest was obtained. Comparison: Comparison is made to chest radiograph 03/05/2021 FINDINGS: No lines and tubes are seen. Aortic valvular prosthesis is seen. Prominent right hilum is unchanged from prior exam. Mild prominence of the vascular markings is seen. No evidence of pleural effusion or pneumothorax. IMPRESSION: Cardiomegaly and mild pulmonary edema. No evidence of pneumonia. ACT 112: Negative or not required by law. Electronically signed by: Gigi Owens M.D. 09/05/2024 11:36 AM Discharge Plan Visit Data Chief Complaint: Hypertension Stated Complaint: HYPERTENSION ED Provider: Moreno Santos Discharge Problem: Acute hypoxemic respiratory failure, Hypertensive emergency, Acute exacerbation of CHF (congestive heart failure) Patient Disposition: Admitted As Inpatient Discharge Instructions Interventions: ED Discharge Assessment Last Done: 09/05/24 14:11 Discharge Problem: Acute exacerbation of CHF (congestive heart failure) Qualifiers: Heart failure type: systolic Qualified Code(s): I50.23 - Acute on chronic systolic (congestive) heart failure
[2024-09-05 11:04] LABS: Basophils # (auto) 0.08 K/uL (0.00-0.20); Basophils % (auto) 0.9 %; Eosinophils # (auto) 0.56 K/uL (0.00-0.50); Eosinophils % (auto) 6.6 %; Hematocrit (blood only) 42.1 % (42.0-52.0); Hemoglobin 14.1 g/dl (14.0-18.0); Immature Granulocytes # (auto) 0.04 K/uL (0.01-0.20); Immature Granulocytes % (auto) 0.5 %; Lymphocytes # (auto) 1.47 K/uL (1.20-3.40); Lymphocytes % (auto) 17.4 %; Mean Corpuscular Hgb Conc 33.5 g/dL (32.0-36.0); Mean Corpuscular Volume 86.6 fL (80.0-100.0); Mean Platelet Volume 11.9 fL (9.4-12.4); Monocytes % (auto) 8.3 %; Neutrophils % (auto) 66.3 %; Platelet Count 196 K/uL (130-400); RDW Coefficient of Variation 15.2 % (11.5-14.5); Red Blood Count 4.86 M/uL (4.70-6.10); White Blood Count 8.45 K/ul (4.8-10.8)
[2024-09-05 11:18] LABS: Alanine Aminotransferase 33 U/L (7-52); Albumin Globulin Ratio 1.5 (0.9-2); Albumin Level 3.9 gm/dl (3.4-5.0); Alkaline Phosphatase 49 U/L (34-104); Anion Gap 7 (3-11); Aspartate Aminotransferase 38 U/L (13-39); BUN Creatinine Ratio 21.8 (10-20); Bilirubin,Total 0.5 mg/dl (0.2-1.0); Blood Urea Nitrogen 19 mg/dl (6-23); Calcium 9.4 mg/dl (8.6-10.3); Carbon Dioxide 25 mmol/L (21-32); Chloride 110 mmol/L (98-107); Globulin 2.6 gm/dl (2.5-4.0); Glucose 129 mg/dl (70-99(Fasting)); Potassium 3.8 mmol/L (3.5-5.1); Sodium 142 mmol/L (136-145); Total Protein 6.5 gm/dl (6.0-8.3)
[2024-09-05 11:24] LABS: Troponin I High Sensitivity 10.8 pg/ml (0-20)
[2024-09-05 11:28] LABS: Partial Thromboplastin Time 28 Seconds (21-31); Prothrombin Time 10.8 Seconds (9.0-12.0)
--- NOTE | 2024-09-05 11:37 | XRay Report ---
XR chest 1V portable CLINICAL HISTORY: Dyspnea TECHNIQUE: Single frontal radiograph of the chest was obtained. Comparison: Comparison is made to chest radiograph 03/05/2021 FINDINGS: No lines and tubes are seen. Aortic valvular prosthesis is seen. Prominent right hilum is unchanged f rom prior exam. Mild prominence of the vascular markings is seen. No evidence of pleural effusion or pneumothorax. IMPRESSION: Cardiomegaly and mild pulmonary edema. No evidence of pneumonia. ACT 112: Negative or not required by law. Electronically signed by: Gigi Owens M.D. 09/05/2024 11:36 AM
[2024-09-05 11:43] LABS: Appearance Urine Clear (Clear); Bilirubin Urine Negative (Negative); Blood Urine Negative (Negative); Color Urine Yellow; Glucose Urine UA Negative (Negative); Ketones Urine Negative (Negative); Leukocyte Esterase Urine Negative (Negative); Nitrite Urine Negative (Negative); Protein Urine Negative (Negative); Specific Gravity Urine 1.017 (1.000-1.030); Urobilinogen Urine Negative (Negative); pH Urine 5.5 (4.5-7.5)
[2024-09-05 11:50] LABS: Adenovirus PCR Not Detected (NotDetected); Bordetella parapertussis PCR Not Detected (NotDetected); Bordetella pertussis PCR Not Detected (NotDetected); Chlamydia pneumoniae PCR Not Detected (NotDetected); Coronavirus 229E PCR Not Detected (NotDetected); Coronavirus CoV-2 (COVID19)PCR Not Detected (NotDetected); Coronavirus HKU1 PCR Not Detected (NotDetected); Coronavirus NL63 PCR Not Detected (NotDetected); Coronavirus OC43PCR Not Detected (NotDetected); Human Metapneumovirus PCR Not Detected (NotDetected); Influenza A PCR Not Detected (NotDetected); Influenza B PCR Not Detected (NotDetected); Mycoplasma pneumoniae PCR Not Detected (NotDetected); Parainfluenza Virus 1 PCR Not Detected (NotDetected); Parainfluenza Virus 2 PCR Not Detected (NotDetected); Parainfluenza Virus 3 PCR Not Detected (NotDetected); Parainfluenza Virus 4 PCR Not Detected (NotDetected); Respiratory Syncytial VirusPCR Not Detected (NotDetected); Rhinovirus/Enterovirus PCR Not Detected (NotDetected)
[2024-09-05] MEDS: ACETAMINOPHEN 500 MG TAB PO STA (12:32)
[2024-09-05] MEDS: FUROSEMIDE 40 MG/4 ML VIAL IV ONE (12:32)
[2024-09-05] MEDS: NITROGLYCERIN SL 0.4 MG/TAB TAB SL STA (12:33)
--- NOTE | 2024-09-05 12:36 | History & Physical Report ---
Date of Service September 05, 2024 Assessment & Plan (1) Acute hypoxemic respiratory failure: Plan: Impacted by CHF, h/o asthma; 3 days shortness of breath; hypoxemic on arrival, currently 94% on 2L O2 via NC, no O2 at baseline - Admit - CBC grossly WNL, CMP with chloride 110, BUN/creatinine ratio 21.8; troponin WNL - VBGs- pH 7.37, pCO2 51, pO2 82, HCO3 30 - CXR with cardiomegaly and mild pulmonary edema, no pneumonia - O2 as needed; wean as patient tolerates - DuoNeb for wheezing appreciated on exam --> Pt states that this treatment was not beneficial in his symptoms- these results suggestive of asthma not being main cause of symptoms - See #2 (2) Acute exacerbation of CHF (congestive heart failure): Plan: Patient unsure of prior history of such; presenting with SOB, lower extremity edema crackles/wheezing - Believes weight has been stable; Daily weights standing - I+Os - Echo pending - BNP 130 - CXR cardiomegaly and mild pulmonary edema, no evidence of pneumonia; Pulm nodule unchanged per report - CBC grossly WNL - CMP chloride 110, BUN/creatinine ratio 21.8, glucose 129 - Troponin 10.8; EKG sinus rhythm, first-degree AV block, rate 67 bpm - Metoprolol tartrate 12.5 mg twice daily- continue - Lasix 40 mg IV given x 1 in ED; Continue 40mg IV daily (3) Asthma: Plan: H/o asthma, per patient; Wheezing on exam, reported increased wheezing by patient - Home meds albuterol inhaler, Wixela, montelukast; has not been utilizing rescue inhaler - CBC + CMP as above - VBG as above - CXR as above - O2 > 90%; O2 prn; wean as tolerated, no O2 at baseline - Duoneb x 1 - provided, no changes in symptoms per patient; lung sounds without great change (4) Hypertensive urgency: Plan: H/o HTN; Elevated BP readings x 2-3 months, worsened over 3-4 days, max. reading 200s SBP; Previously on diltiazem w/ metoprolol; Pt states that PCP prescribed him new med for HTN, has not yet started - No lab findings suggesting emergency; no current symptoms suggestive of such - Metoprolol as outpatient - Continue - BP seems to be decreasing on reevaluation of patient multiple hours following admission; Monitor closely, adjustments as appropriate (5) Type 2 diabetes mellitus: Plan: H/o DMT2 - Managed by diet - Most recent A1C 10/2021- 6.5% - Pending A1c - No SSI at this time given no at home medications for management Plan Hypercholesterolemia- Ezetimibe GERD- Omperazole 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 H/o ETOH use- H/o withdrawal delirium; Thiamine; No recent ETOH H/o prostate CA- S/p radical prostatectomy 1998 @ [facility]; PSA has been undetectable; Follows with Urology, most recent visit 03/26/2024; Chronic conditions managed on Oxybutynin, Terazosin Dispo: Admit Diet: Heart healthy, T2DM VTE Prophylaxis: Lovenox Code: Full Admission and Anticipated Discharge Date Admission Date: 09/05/2024 History of Present Illness Chief Complaint: SOB, HTN Primary Care Provider: Dea Waldron PA-C 78-year-old male presenting for 3 days of elevated blood pressure readings and shortness of breath. ED course: CBC grossly WNL with exception of RDW 48, 6.7, eosinophils 0.56; PT/INR WNL; CMP chloride 110 BUN/creatinine ratio 21.8, glucose 129; BNP 130; troponin 10.8; UA negative; BioFire negative CXR cardiomegaly and mild pulmonary edema, no evidence of pneumonia; EKG sinus rhythm with first-degree AV block, LAD, pulmonary disease pattern, incomplete RBBB, rate 67 bpm; Provided with nitroglycerin, furosemide, acetaminophen in ED. Patient 78-year-old male PMHx HTN, T2DM, asthma, migraine, hypercholesterolemia, history of alcohol use disorder, and history of prostate cancer who presents for elevated blood pressure readings and shortness of breath x 3 days. 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 However patient reports that immediately after stopping this med, his blood pressures jumped back to the 140s to 150s, where initially when he was on both medications his blood pressures were in the 100s to 110s. States that for a few weeks, he did not take his blood pressure readings as he was supposed to but decided to check his blood pressure following . Notes that readings were in 190s over 90s, and decreased to 170s after taking metoprolol. He checked his blood pressure again the next day and it was in the 200s over 90s. Approximately 3 to 4 days ago he also noted he began to have shortness of breath that was worse than his normal. Last evening, he woke up at approximately 0300 with shortness of breath, describing it as though he could not take a full breath. Associated symptoms of ongoing cough >1-year, white /clear phlegm. This morning he also noted tingling in his right hand throughout his fingers which lasted approximately 1 hour and resolved. Did have a headache yesterday that was mild, resolved on its own. reports that the patient has had pronounced unsteadiness over the past few days which is new for him. Patient denies chest pain, palpitations, diaphoresis, abdominal pain, N/V/D/C, syncopal episodes, dizziness, weakness, or fever chills. Has not had this happen before. Took a.m. medications. Please see Dr. Rivera's Attestation for adjustments/additions to treatment plan. Allergies Allergy/AdvReac Type Severity Reaction Status Date / Time Penicillins Allergy Severe SWELLING, Verified 09/05/24 12:52 TROUBLE BREATHING fluvastatin [From Lescol] Allergy Unknown Unknown Verified 09/05/24 12:52 lisinopril Allergy Unknown Unknown Verified 09/05/24 12:52 lovastatin Allergy Unknown PT DOESN'T Verified 09/05/24 12:52 REMEMBER REACTION-NAUSEA? simvastatin Allergy Unknown PT DOESN'T Verified 09/05/24 12:52 REMEMBER REACTION-NAUSEA? diazepam AdvReac Mild lethargy Verified 09/05/24 12:52 losartan AdvReac Mild Dizziness Verified 09/05/24 12:52 Pnetmno-NHF-KdO Reductase AdvReac Unknown NAUSEA Verified 09/05/24 12:52 Inhibitor [Fkcclsj-Gkj-Jxu Reductase Inhibitor] Home Medications Medication Instructions Recorded Confirmed Type coenzyme Q10 400 mg capsule 400 mg PO DAILY 03/01/21 09/05/24 History loratadine 10 mg tablet (Claritin) 10 mg PO DAILY PRN allergies 03/01/21 09/05/24 History montelukast 10 mg tablet 10 mg PO DAILY 03/01/21 09/05/24 History multivitamin 1 tab PO DAILY 03/01/21 09/05/24 History omega 3-tav-lrm-fish oil 1,000 mg 1,400 mg PO QID ##0 03/01/21 09/05/24 History (120 mg-180 mg) capsule (Fish Oil) omeprazole 20 mg tablet,delayed 40 mg PO QAM 03/01/21 09/05/24 History release ezetimibe 10 mg tablet (Zetia) 10 mg PO DAILY #0 tabs 03/11/21 09/05/24 Rx naltrexone 50 mg tablet 50 mg PO HS 11/16/21 09/05/24 History cholecalciferol (vitamin D3) 50 50 mcg PO DAILY #30 caps 04/12/22 09/05/24 Rx mcg (2,000 unit) capsule thiamine HCl (vitamin B1) 100 mg 300 mg PO BID 04/28/23 09/05/24 History tablet (Vitamin B-1) diclofenac sodium 75 mg 75 mg PO BID PRN pain 05/02/23 09/05/24 History tablet,delayed release lidocaine 5 % topical patch 1 patch topical DAILY 05/02/23 09/05/24 History albuterol sulfate 90 mcg/actuation 2 inh inhalation DAILY PRN 12/12/23 09/05/24 History aerosol inhaler Shortness Of Breath Or Wheezing clotrimazole 1 % topical cream 1 applic topical BID PRN Rash 12/12/23 09/05/24 History fluticasone 500 mcg-salmeterol 50 1 inh inhalation BID 12/12/23 09/05/24 History mcg/dose blistr powdr for inhalation (Wixela Inhub) oxybutynin chloride 5 mg tablet 5 mg PO BID #60 tabs 07/17/24 09/05/24 Rx aspirin 81 mg tablet,delayed 81 mg PO DAILY 09/05/24 09/05/24 History release clindamycin phosphate 1 % topical 1 applic topical BID PRN Breakouts 09/05/24 09/05/24 History solution hydrocortisone 2.5 % topical cream 1 applic topical DAILY PRN 09/05/24 09/05/24 History Psoriasis lanolin alcohols-mineral 1 applic topical DAILY PRN Dry Skin 09/05/24 09/05/24 History oil-w.petrolatum-ceresin topical cream (Eucerin topical cream) magnesium 250 mg tablet 250 mg PO DAILY 09/05/24 09/05/24 History metoprolol tartrate 25 mg tablet 12.5 mg PO BID 09/05/24 09/05/24 History pregabalin 225 mg capsule 225 mg PO BID 09/05/24 09/05/24 History salicylic acid 3 % shampoo 1 ea topical DAILY 09/05/24 09/05/24 History selenium sulfide 2.5 % lotion 1 applic topical Q OTHER DAY 09/05/24 09/05/24 History terazosin 10 mg capsule 10 mg PO HS 09/05/24 09/05/24 History topiramate 25 mg tablet 0 mg PO BID Migraine Prevention 09/05/24 09/05/24 History vibegron 75 mg tablet (Gemtesa) 0 mg PO DAILY 09/05/24 09/05/24 History vitamin E 268 mg (400 unit) capsule 268 mg PO DAILY 09/05/24 09/05/24 History Past Med/Surg History Problem List Hypertensive urgency Acute hypoxemic respiratory failure (Acute) Acute exacerbation of CHF (congestive heart failure) (Acute) Hypertensive emergency (Acute) Daily urinary incontinence Gait apraxia Cerebral ventriculomegaly Rupture of left proximal biceps tendon with repair Subjective memory complaints Prostate cancer Urinary urgency H/O alcohol dependence Elevated CPK Muscle cramp Lumbosacral radiculopathy Idiopathic polyneuropathy Alcohol use disorder Pulmonary nodule Acute delirium Altered mental status Delirium tremens Confusion (Acute) Pneumonia (Acute) Sepsis (Acute) Pneumonia Sepsis Ataxia Mixed headache Memory loss Hypercholesteremia (Chronic) Bladder neoplasm (Acute) Cervical stenosis of spine (Acute) Abnormal brain MRI (Acute) Arthritis (Chronic) Cognitive complaints (Acute) Common migraine without aura (Chronic) Hypertension (Chronic) Lumbar radiculopathy (Chronic) Peripheral neuropathy (Chronic) Tremor (Chronic) Type 2 diabetes mellitus (Chronic) diet controlled per pt Encounter for pre-operative examination Migraine Asthma (Chronic) Hypertension (Chronic) Diabetes (Chronic) Medical History History of injury of tendon bicep tear w/ repair History of alcohol withdrawal delirium (2020) Hypotension 02/07/25- states had blood pressure medication adjustment early 12/2023 by pcp; bp meds currently back up to previous dosages. History of pneumonia (2020) Tremor Pulmonary nodule monitoring Peripheral neuropathy Migraine Diabetes diet controlled Arthritis History of prostate cancer (2019) History of COVID-19 2021- no hosp; resolved H/O alcohol dependence has approx 1 drink per month now > "quit in February 2022" Osteoarthritis SOB (shortness of breath) on exertion 02/08/24- recent increase in SOB, nausea and weakness with exertion (home bp reading during episode 112/) Asthma uses rescue inhaler 1-2 times per week Hyperlipidemia Hypertension Surgical History History of cataract surgery right Status post lung surgery H/O elbow surgery H/O prostatectomy History of bronchoscopy History of colonoscopy History of surgery on arm LEFT ELBOW-TENDON SURG Fusion of spine CERVICAL > "slightly" limited ROM side to side History of lobectomy of lung RIGHT MIDDLE LOBE-BENIGN Family History Father Diabetes Cardiac disorder Unknown Hypertension Mother Cardiac disorder Social History Smoking Status: Former smoker Tobacco Type: Cigarettes Second Hand Exposure: No; Do You Dip or Chew Tobacco: No; Hx Alcohol Use: No Hx Substance Use: No Preferred Language: Slovak Communication Ability: Effective Dado Operator Required: No Beliefs That Will Affect Care: None Current Living Situation: Spouse Other Information That Helps Us Care for You: No Feels Safe at Home: Yes Safety Concerns: Feels Safe At This Time Assistive Devices: Cane, Denture - Upper, Glasses and Hearing Aid - Bilateral Review of Systems Review of Systems: All systems reviewed & are unremarkable except as noted in Subjective Physical Exam Physical Exam: General: No acute distress, well developed. Skin: Warm and dry, without rashes or lesions Head: Normocephalic, atraumatic Eyes: PERRL, conjunctivae clear, sclera non-icteric; wearing glasses ENT: External ear and ear canal without swelling; nose atraumatic; okay dentition, Neck: Supple, no LAD; no JVD Cardio: Mild systolic murmur noted, regular rate and rhythm, no G/R, S1 and S2 normal Resp: Chest wall symmetric, normal respiratory effort; No respiratory distress, diffuse expiratory wheezing throughout, decreased breath sounds Abdomen: Soft, symmetric, nontender; No masses or hepatosplenomegaly; Bowel sounds normoactive MSK: No deformities, full ROM throughout; pulses palpable and equal; 12+ pitting edema bilateral lower extremities. Neuro: Awake, alert; Muscle strength 5/5 bilaterally in UE/LE; Sensation intact bilaterally; CN intact Psych: Appropriate mood and affect; good judgement and insight. present in room at time of visit Results & Data Results & Data Vital Signs (Past 12 Hours) Vital Signs Temp Pulse Resp BP Pulse Ox O2 Del Method O2 Flow Rate 09/05/24 11:01 162/91 H 09/05/24 10:50 68 09/05/24 10:42 66 94 Nasal Cannula 2 09/05/24 10:36 71 17 09/05/24 10:29 36.6 C 67 20 173/120 H 86 L Room Air Laboratory Results 09/05/24 09/05/24 09/05/24 11:33 10:50 10:40 WBC 8.45 RBC 4.86 Hgb 14.1 Hct 42.1 MCV 86.6 MCH 29.0 MCHC 33.5 RDW Std Deviation 48.0 H RDW Coeff of Roni 15.2 H Plt Count 196 MPV 11.9 Immature Gran % (Auto) 0.5 Neut % (Auto) 66.3 Lymph % (Auto) 17.4 [place] % (Auto) 8.3 Eos % (Auto) 6.6 Baso % (Auto) 0.9 Neut # (Auto) 5.60 Lymph # (Auto) 1.47 [place] # (Auto) 0.70 H Eos # (Auto) 0.56 H Baso # (Auto) 0.08 Immature Gran # (Auto) 0.04 PT 10.8 INR 1.0 APTT 28 PTT Ratio 1.0 Sodium 142 Potassium 3.8 Chloride 110 H Carbon Dioxide 25 Anion Gap 7 BUN 19 Creatinine 0.87 Est Cr Clr Drug Dosing Not Reportable eGFR 88.87 BUN/Creatinine Ratio 21.8 H Glucose 129 H Calcium 9.4 Magnesium 2.0 Total Bilirubin 0.5 AST 38 ALT 33 Alkaline Phosphatase 49 Troponin I High Sens 10.8 B-Natriuretic Peptide 130 H Total Protein 6.5 Albumin 3.9 Globulin 2.6 Albumin/Globulin Ratio 1.5 Urine Color Yellow Urine Appearance Clear Urine pH 5.5 Ur Specific [place] 1.017 Urine Protein Negative Urine Glucose (UA) Negative Urine Ketones Negative Urine Blood Negative Urine Nitrite Negative Urine Bilirubin Negative Urine Urobilinogen Negative Ur Leukocyte Esterase Negative Adenovirus (PCR) Not Detected B. pertussis DNA (PCR) Not Detected B.parapertussis DNA PCR Not Detected C. pneumoniae DNA (PCR) Not Detected Coronavirus OC43 (PCR) Not Detected Coronavirus HKU1 (PCR) Not Detected Coronavirus 229E (PCR) Not Detected SARS-CoV-2 (PCR) Not Detected Coronavirus NL63 (PCR) Not Detected Human Metapneumovir PCR Not Detected Influenza Type A (PCR) Not Detected Influenza Type B (PCR) Not Detected M. pneumoniae (PCR) Not Detected Parainfluenza 1 (PCR) Not Detected Parainfluenza 2 (PCR) Not Detected Parainfluenza 3 (PCR) Not Detected Parainfluenza 4 (PCR) Not Detected RSV (PCR) Not Detected Entero/Rhino (PCR) Not Detected Diagnostic Findings Chest X-Ray 09/05/24 10:42 XR chest 1V portable CLINICAL HISTORY: Dyspnea TECHNIQUE: Single frontal radiograph of the chest was obtained. Comparison: Comparison is made to chest radiograph 03/05/2021 FINDINGS: No lines and tubes are seen. Aortic valvular prosthesis is seen. Prominent right hilum is unchanged from prior exam. Mild prominence of the vascular markings is seen. No evidence of pleural effusion or pneumothorax. IMPRESSION: Cardiomegaly and mild pulmonary edema. No evidence of pneumonia. ACT 112: Negative or not required by law. Electronically signed by: Gigi Owens M.D. 09/05/2024 11:36 AM ECG Additional Comments: EKG sinus rhythm with first-degree AV block, pulmonary disease pattern, incomplete RBBB Rate 67 bpm, KS 323, QRS 104, QT/QTc 374/395 Code Status & VTE Plan Code Status Full Supervising Physician Co-Signing Physician Notes I personally saw and examined the patient. I independently reviewed the labs, EKG, imaging, problem list, medication list, past medical history and family history. I verified all de la torre points and agree with Pepito Muñoz PA-C with the following exceptions and/or additions: 78 year old male presents to the ER with orthopnea and shortness of breath. Stopped diltiazem 2 months ago and having elevated BP since then. Does not think he recently increased the salt in his diet O/E HS RRR, no murmurs, Chest bibasal crackles, Abdo SNT A/P Acute HFpEF - Lasix 40mg IV daily, I&Os, daily weight, switch metoprolol tartrate to carvedilol, aim O2 sats > 94%. Suspect exacerbation due to elevated BP, may need to add ISMN but hopefully once more euvolemic he will be controlled on lasix and carvedilol alone PG Care Time/CCT Total # of Minutes Spent Total Time Spent with Patient: Total time spent is greater than 50% in coordination of care (as documented) at patient's floor/unit and/or counseling patient: Coding Level of Care Code 97933 INT INP/OBS CARE 3/75MIN Diagnoses Acute hypoxemic respiratory failure J96.01 Acute exacerbation of CHF (congestive heart failure) I50.23 Heart failure type: systolic Asthma J45.909 Hypertensive urgency I16.0 Type 2 diabetes mellitus without complication, without long-term current use of insulin E11.9 Diabetes mellitus complication status: without complication Diabetes mellitus usp insulin use: without usp use Time Spent (min) 80 (2) Acute exacerbation of CHF (congestive heart failure) Heart failure type: systolic Qualified Code(s): I50.23 - Acute on chronic systolic (congestive) heart failure (5) Type 2 diabetes mellitus Diabetes mellitus complication status: without complication Diabetes mellitus exterminator insulin use: without exterminator use Qualified Code(s): E11.9 - Type 2 diabetes mellitus without complications
[2024-09-05] MEDS: ALBUT/IPRATROP 3MG/0.5MG NEB 3 ML VIAL NEB STA (13:48)
[2024-09-05 15:06] LABS: Base Excess VBG 3.1 mEq/L; HCO3 VBG 30 mmol/L; Oxygen Saturation VBG < 60.0 %; PCO2 VBG 51 mmHg (38-50); PO2 VBG 22 mmHg; pH VBG 7.37 (7.36-7.41)
--- NOTE | 2024-09-05 16:22 | Electrocardiogram Report ---
Test Reason : Blood Pressure : */* mmHG Vent. Rate : 67 BPM Atrial Rate : 67 BPM P-R Int : 232 ms QRS Dur : 104 ms QT Int : 374 ms P-R-T Axes : 68 -71 75 degrees QTcB Int : 395 ms Sinus rhythm with 1st degree A-V block Left axis deviation Incomplete right bundle branch block Minor Anterior ST elevation, most consistent with repolarization variant Abnormal ECG When compared with ECG of 01-Mar-2021 15:03, Vent. rate has decreased by 37 bpm Confirmed by Cedric Johnston ([id number]) on 09/05/2024 4:21:53 PM Referred By: REFERRED SELF Confirmed By: Cedric Johnston
[2024-09-05] MEDS ORDERED: CLOTRIMAZOLE 1% CR 15 GM TUBE TOP PRN (16:27)
[2024-09-05] MEDS ORDERED: ALBUTEROL HFA 8 GM INHALER INH PRN (16:27)
[2024-09-05] MEDS ORDERED: HYDROCORTISONE 2.5% CR 30 GM TUBE EXT PRN (16:27)
--- NOTE | 2024-09-05 18:20 | XCELERA ---
[id number]
[2024-09-05] MEDS: ENOXAPARIN INJ 40 MG/0.4 ML SYR SQ SCH (20:24)
[2024-09-05] MEDS: PREGABALIN 75 MG CAP PO SCH (20:25)
[2024-09-05] MEDS: carvediloL 6.25 MG TAB PO SCH (20:25)
[2024-09-05] MEDS: TERAZOSIN HCL 5 MG CAP PO SCH (20:25)
[2024-09-05] MEDS: THIAMINE HCL 100 MG TAB PO SCH (20:25)
[2024-09-05] MEDS: oxyBUTYnin chloride 5 MG TAB PO SCH (20:26)
[2024-09-05] MEDS: NALTREXONE HCL 50 MG TAB PO SCH (20:26)
[2024-09-05] MEDS ORDERED: TOPIRAMATE 25 MG TAB PO SCH ×2 (21:00)
[2024-09-05] MEDS ORDERED: METOPROLOL TARTRATE 25 MG TAB PO SCH (21:00)
[2024-09-06] MEDS: LIDOCAINE 5% 1 PATCH TD SCH (08:01)
[2024-09-06 08:05] LABS: Hematocrit (blood only) 43.1 % (42.0-52.0); Hemoglobin 14.5 g/dl (14.0-18.0); Mean Corpuscular Hemoglobin 29.2 pg (25.0-34.0); Mean Corpuscular Hgb Conc 33.6 g/dL (32.0-36.0); Mean Corpuscular Volume 86.7 fL (80.0-100.0); Mean Platelet Volume 11.8 fL (9.4-12.4); Platelet Count 194 K/uL (130-400); RDW Coefficient of Variation 15.3 % (11.5-14.5); RDW Standard Deviation 48.6 fL (36.4-46.3); Red Blood Count 4.97 M/uL (4.70-6.10); White Blood Count 8.52 K/ul (4.8-10.8)
[2024-09-06] MEDS: EZETIMIBE 10 MG TAB PO SCH (08:08)
[2024-09-06] MEDS: PANTOprazole 40 MG TAB PO SCH (08:09)
[2024-09-06] MEDS: VIBEGRON 75 MG TAB PO SCH (08:09)
[2024-09-06] MEDS: DICLOFENAC SODIUM 75 MG TABCR PO PRN (08:09)
[2024-09-06] MEDS: ASPIRIN 81 MG ECTAB PO SCH (08:09)
[2024-09-06] MEDS: FLUTICASONE/VILANTEROL 200/25MCG 14 PUFFS/INHALER INH SCH (08:10)
[2024-09-06 08:17] LABS: Anion Gap 5 (3-11); BUN Creatinine Ratio 19.4 (10-20); Blood Urea Nitrogen 20 mg/dl (6-23); Carbon Dioxide 29 mmol/L (21-32); Chloride 107 mmol/L (98-107); Glucose 114 mg/dl (70-99(Fasting)); Potassium 3.6 mmol/L (3.5-5.1); Sodium 141 mmol/L (136-145)
[2024-09-06 08:18] LABS: Estimated Average Glucose 143 mg/dl; Hemoglobin A1C 6.6 % (4.5-5.6)
[2024-09-06] MEDS: POTASSIUM CHLORIDE CRTAB 20 MEQ TABCR PO STA (09:16)
[2024-09-06] MEDS: FUROSEMIDE INJ 20 MG/2 ML VIAL IV ONE (09:16)
[2024-09-06] MEDS: MONTELUKAST SODIUM 10 MG TABLET PO SCH (10:12)
--- NOTE | 2024-09-06 13:07 | Hospitalist Progress Note ---
Date of Service September 06, 2024 Assessment & Plan (1) Acute hypoxemic respiratory failure: (2) Acute exacerbation of CHF (congestive heart failure): (3) Hypertensive urgency: (4) H/O alcohol dependence: (5) Type 2 diabetes mellitus: Plan 78-year-old male with past medical history of hypertension, type 2 diabetes mellitus, asthma/COPD with history of tobacco use disorder, migraine, hyperlipidemia, history of alcohol use disorder on naltrexone, history of prostate cancer who presents to the ED with shortness of breath and elevated blood pressure x 3 days and found to be hypoxic with chest x-ray showing pulmonary edema #Acute hypoxic respiratory failure #Acute diastolic CHF with preserved ejection fraction #Hypertensive urgency Patient is currently saturating well on room air and is not requiring oxygen He received IV Lasix 40 mg in ED Lasix 20 mg IV x 1 dose today Bio fire is negative Echo from 09/05/2024 shows EF of 65 to 70%, left ventricular wall motion is normal, severe concentric left ventricular hypertrophy, grade 1 diastolic dysfun ction noted, moderate aortic root dilatation, mild mitral regurgitation, the right ventricle is normal in size and function I/O monitoring Daily weights Check repeat two-view chest x-ray Increase carvedilol to 12.5 mg p.o. twice daily Start Procardia 30 mg p.o. daily for better blood pressure control Patient is allergic to lisinopril/losartan Check orthostatic vital signs and monitor orthostatic vital signs Patient follows up with bellow[facility] filler at [facility] in [place] but is open to seeing a local bellows filler on discharge #Chronic asthma/COPD Continue home inhalers Bio fire is negative Continue montelukast Outpatient follow-up with precision inspector on discharge #Type 2 diabetes mellitus A1c 6.6 Patient states he is not on any oral hypoglycemics Recommend patient follow-up with endocrinology as outpatient: He would benefit from GLP-1 agonist or SGL 2 inhibitors #History of alcohol use disorder Patient states he is in remission, continue naltrexone #History of migraine headaches Follows up with Dr. Velasquez Guan neurologist as outpatient Continue Topamax 25 mg p.o. twice daily #Chronic low back pain Continue Lyrica Tylenol 1000 mg p.o. 3 times daily as needed pain Out of bed to chair CODE STATUS: Full code DVT prophylaxis: Lovenox 40 mg subcutaneous daily Discharge planning likely home tomorrow if medically stable, will need two-step evaluation for home O2 use Care plan discussed with patient, nursing staff and daughter updated at bedside Admission and Anticipated Discharge Date Admission Date: September 05, 2024 Subjective Patient seen and examined H&P reviewed Labs reviewed Radiology reviewed Daughter at bedside Complaining of low back pain: Feels hospital bed has made his back pain worse. He denies any headache, dizziness, lightheadedness, chest pain, shortness of breath, nausea, vomiting,, abdominal pain. Denies any diarrhea. Usually tends to get constipated. Last bowel movement was 2 days ago. He has tried Metamucil at home but does not seem to help. He is willing to try MiraLAX and senna. He is requesting stronger pain meds. Social history: Lives at home with his . Drives. Independent of ADLs. Use d to drink alcohol heavily, now he drinks 1 or 2 drinks a year. Quit tobacco smoking 10 years ago. He follows up with the [facility] in [place] for his medical needs Physical Exam Physical Exam: General: No acute distress Psych: Awake and alert, oriented x 3 HEENT: Anicteric sclera, moist oral mucosa CVS: Regular rate and rhythm Lungs: Bilateral air entry, no wheezing noted Abdomen: Soft, nontender, no rebound, no guarding Ext: No lower extremity edema, no calf tenderness Neuro: No focal motor deficits noted Results & Data Results & Data Vital Signs (Past 12 Hours) Vital Signs Temp Pulse Pulse Resp BP Pulse Ox O2 Del Method 09/06/24 11:24 36.4 C L 74 18 136/92 90 Room Air 09/06/24 10:59 Room Air 09/06/24 07:43 36.6 C 71 18 161/86 H 90 Room Air 09/06/24 07:24 68 09/06/24 02:57 36.4 C L 66 16 126/80 90 Room Air Laboratory Results Laboratory Results - last 24 hr 09/05/24 09/05/24 09/06/24 14:55 20:14 07:34 WBC 8.52 RBC 4.97 Hgb 14.5 Hct 43.1 MCV 86.7 MCH 29.2 MCHC 33.6 RDW Std Deviation 48.6 H RDW Coeff of Roni 15.3 H Plt Count 194 MPV 11.8 VBG pH 7.37 VBG pCO2 51 H VBG pO2 22 VBG HCO3 30 VBG O2 Saturation < 60.0 VBG Base Excess 3.1 Sodium 141 Potassium 3.6 Chloride 107 Carbon Dioxide 29 Anion Gap 5 BUN 20 Creatinine 1.03 Est Cr Clr Drug Dosing Not Reportable eGFR 74.82 BUN/Creatinine Ratio 19.4 Glucose 114 H Estimat Average Glucose 143 Hemoglobin A1c 6.6 H Calcium 9.0 Magnesium 2.0 Troponin I High Sens 10.7 Vitamin B12 729 Diagnostic Findings Chest X-Ray 09/05/24 10:42 XR chest 1V portable CLINICAL HISTORY: Dyspnea TECHNIQUE: Single frontal radiograph of the chest was obtained. Comparison: Comparison is made to chest radiograph 03/05/2021 FINDINGS: No lines and tubes are seen. Aortic valvular prosthesis is seen. Prominent right hilum is unchanged from prior exam. Mild prominence of the vascular markings is seen. No evidence of pleural effusion or pneumothorax. IMPRESSION: Cardiomegaly and mild pulmonary edema. No evidence of pneumonia. ACT 112: Negative or not required by law. Electronically signed by: Gigi Owens M.D. 09/05/2024 11:36 AM PG Care Time/CCT Total # of Minutes Spent Total Time Spent with Patient: Total time spent is greater than 50% in coordination of care (as documented) at patient's floor/unit and/or counseling patient: Coding Level of Care Code 04174 SUB INP/OBS CARE 3/50MIN Diagnoses Acute hypoxemic respiratory failure J96.01 Acute exacerbation of CHF (congestive heart failure) I50.23 Heart failure type: systolic Hypertensive urgency I16.0 H/O alcohol dependence F10.21 Type 2 diabetes mellitus without complication, without long-term current use of insulin E11.9 Diabetes mellitus longitudinal float operator insulin use: without correction use Diabetes mellitus complication status: without complication (2) Acute exacerbation of CHF (congestive heart failure) Heart failure type: systolic Qualified Code(s): I50.23 - Acute on chronic systolic (congestive) heart failure (5) Type 2 diabetes mellitus Diabetes mellitus correction insulin use: without correction use Diabetes mellitus complication status: without complication Qualified Code(s): E11.9 - Type 2 diabetes mellitus without complications
[2024-09-06] MEDS: SENNA 8.6 MG TAB PO ONE (13:26)
[2024-09-06] MEDS: POLYETHYLENE (MIRALAX) 17 GM PACK PO SCH (13:27)
[2024-09-06] MEDS: traMADol HCL 50 MG TABLET PO ONE (13:57)
--- NOTE | 2024-09-06 17:14 | XRay Report ---
EXAM: Radiographs of the Chest 2 Views INDICATION: Shortness of breath. TECHNIQUE: Frontal and lateral views of the chest. COMPARISON: No relevant prior studies available. FINDINGS: Lungs and pleural spaces: Diaphragmatic flattening consistent with air trapping noted with bilateral basilar predominantly lower lobe scarring or atelectasis. No consolidation or pulmonary edema. No pleural effusion or pneumothorax. Heart: Normal shape and configuration. Mediastinum: Prominent right paratracheal soft tissue density consistent with tortuous vessel. Bones/joints: No fracture, erosion or dislocation. Vasculature: Ectatic aorta. IMPRESSION: Chronic changes. No acute disease. ACT 112: Negative or not required by law. Electronically signed by Melania Donald 09-06-2024 4:54 PM
[2024-09-06] MEDS: NIFEdipine EXTENDED REL 30 MG TABCR PO SCH (17:24)
[2024-09-06] MEDS: carvediloL 12.5 MG TAB PO SCH (17:24)
[2024-09-06] MEDS: SENNA 8.6 MG TAB PO SCH (20:29)
[2024-09-07] MEDS: BUMETANIDE 1 MG TAB PO SCH (09:24)
[2024-09-07] MEDS: ACETAMINOPHEN 500 MG TAB PO PRN (09:33)
--- NOTE | 2024-09-07 09:49 | Discharge Summary ---
Discharge Summary Date of Service September 07, 2024 Principal Dx & Hospital Course #1 = Principal Diagnosis (1) Acute hypoxemic respiratory failure: (2) Acute exacerbation of CHF (congestive heart failure): (3) Hypertensive urgency: (4) H/O alcohol dependence: (5) Type 2 diabetes mellitus: Plan 78-year-old male with past medical history of hypertension, type 2 diabetes mellitus, asthma/COPD with history of tobacco use disorder, migraine, hyperlipidemia, history of alcohol use disorder on naltrexone, history of prostate cancer who presents to the ED with shortness of breath and elevated blood pressure x 3 days and found to be hypoxic with chest x-ray showing pulmonary edema #Acute hypoxic respiratory failure #Acute diastolic CHF with preserved ejection fraction #Hypertensive urgency Patient was diuresed with IV Lasix and then transition to Bumex 1 mg p.o. daily Bio fire is negative Echo from 09/05/2024 shows EF of 65 to 70%, left ventricular wall motion is normal, severe concentric left ventricular hypertrophy, grade 1 diastolic dysfunction noted, moderate aortic root dilatation, mild mitral regurgitation, the right ventricle is normal in size and function Repeat chest x-ray in follow-up showed improvement in pulmonary edema and no evidence of vascular congestion Continue carvedilol 12.5 mg p.o. twice daily Patient was started on Procardia XL 30 mg daily for better blood pressure control Patient is allergic to lisinopril/losartan He was seen by respiratory therapy and a two-step evaluation shows patient does not need home O2 on discharge Patient follows up with extras casting director at [facility] in [place] but is open to seeing a local extras casting director on discharge: Have given him information for Dr. Johnston to call and make appointment locally #Chronic asthma/COPD Continue home inhalers Bio fire is negative Continue montelukast Outpatient follow-up with paper cone maker on discharge #Type 2 diabetes mellitus A1c 6.6 Patient states he is not on any oral hypoglycemics Recommend patient follow-up with endocrinology as outpatient: He would benefit from GLP-1 agonist or SGL 2 inhibitors #History of alcohol use disorder Patient states he is in remission, continue naltrexone #History of migraine headaches Follows up with Dr. Velasquez Guan neurologist as outpatient Continue Topamax 25 mg p.o. twice daily #Chronic low back pain Continue Lyrica Tylenol 1000 mg p.o. 3 times daily as needed pain Outpatient follow-up with PCP Avoid opiates since patient is on naltrexone Patient seen and examined today. He is ambulating with his cane. He denies any chest pain or shortness of breath. He reports good appetite. I have gone over the discharge care plan, medications and follow-up with the patient in great detail and answered all his questions. This discharge took greater than 30 minutes to coordinate Admission HPI Per Admitting Provider 78-year-old male presenting for 3 days of elevated blood pressure readings and shortness of breath. ED course: CBC grossly WNL with exception of RDW 48, 6.7, eosinophils 0.56; PT/INR WNL; CMP chloride 110 BUN/creatinine ratio 21.8, glucose 129; BNP 130; troponin 10.8; UA negative; BioFire negative CXR cardiomegaly and mild pulmonary edema, no evidence of pneumonia; EKG sinus rhythm with first-degree AV block, LAD, pulmonary disease pattern, incomplete RBBB, rate 67 bpm; Provided with nitroglycerin, furosemide, acetaminophen in ED. Patient 78-year-old male PMHx HTN, T2DM, asthma, migraine, hypercholesterolemia, history of alcohol use disorder, and history of prostate cancer who presents for elevated blood pressure readings and shortness of breath x 3 days. States that probably 2 to 3 months ago, his extras casting director stopped his diltiazem medication because his blood pressures were in readings with both metoprolol diltiazem. However patient reports that immediately after stopping this med, his blood pressures jumped back to the 140s to 150s, where initially when he was on both medications his blood pressures were in the 100s to 110s. States that for a few weeks, he did not take his blood pressure readings as he was supposed to but decided to check his blood pressure following . Notes that readings were in 190s over 90s, and decreased to 170s after taking metoprolol. He checked his blood pressure again the next day and it was in the 200s over 90s. Approximately 3 to 4 days ago he also noted he began to have shortness of breath that was worse than his normal. Last evening, he woke up at approximately 0300 with shortness of breath, describing it as though he could not take a full breath. Associated symptoms of ongoing cough >1-year, white/clear phlegm. This morning he also noted tingling in his right hand throughout his fingers which lasted approximately 1 hour and resolved. Did have a headache yesterday that was mild, resolved on its own. reports that the patient has had pronounced unsteadiness over the past few days which is new for him. Patient denies chest pain, palpitations, diaphoresis, abdominal pain, N/V/D/C, syncopal episodes, dizziness, weakness, or fever chills. Has not had this happen before. Took a.m. medications. Discharge Exam General: No acute distress Psych: Awake and alert, oriented x 3 HEENT: Anicteric sclera, moist oral mucosa CVS: Regular rate and rhythm Lungs: Bilateral air entry, no wheezing noted Abdomen: Soft, nontender, no rebound, no guarding Ext: No lower extremity edema, no calf tenderness Neuro: No focal motor deficits noted Discharge Plan Discharge Items Patient Disposition: Home - Self-Care Reason For Visit: PROGRESSIVE SOB, ACUTE HYPOXIC RESPIRATORY FAILURE Discharge Diagnosis: #Acute diastolic CHF with preserved ejection fraction #Hypertension #Chronic asthma/COPD #Type 2 diabetes mellitus #History of alcohol use disorder #History of migraine headaches #Chronic low back pain Condition on Discharge: Fair Activity: As commented below Activity Comment: As tolerated with assistance from cane Non-emergency contact: Primary Care Provider Call non-emergency contact if: you have any medication questions, your symptoms worsen, your pain is not controlled and you have a fever Follow-up/Referrals: Cedric Johnston MD [Physician] - 09/27/24 11:00 am Jb Mariano MD [Physician] - 11/07/24 2:30 pm Dea Waldron PA-C [Primary Care Provider] - (PLEASE CALL YOUR PRIMARY CARE PROVIDER TO SCHEDULE A HOSPITAL DISCHARGE FOLLOW-UP APPOINTMENT WITHIN 7-10 DAYS) Diet: Carb Consistent or DM2, Heart Healthy and Low Sodium (2gm) Addtl Attending Provider Instructions: DISCHARGE INSTRUCTION TO PATIENT/FAMILY: Follow-up with your primary care provider within 1 week regarding: Posthospital discharge, medication review, medication refills and follow-up on all your medical problems including heart failure and diabetes mellitus Please take all your discharge medications, discharge information and discharge instructions to all your doctors appointments. Avoid all NSAIDs including ibuprofen, Motrin, Advil, Aleve, naproxen, meloxicam, Toradol, diclofenac Follow-up with cardiology as outpatient in 1 to 2 weeks time regarding CHF and hypertension Follow-up with your outpatient paper cone maker (lung doctor) in 1 to 2 weeks time You have been prescribed diuretic Bumex 1 mg p.o. daily. Please check your weight every morning at the same time on the same scale. If your weight goes up by over 2 pounds in 24 hours or you are experiencing symptoms of breathlessness, take an extra dose of Bumex 1 mg in addition to your daily dose and call your PCP for further advice. If you develop chest pain or shortness of breath, please call 911. You would benefit from GLP-1 agonist or SGLT2 inhibitor for treatment of diabetes given you have congestive heart failure. Please speak to the extras casting director on follow-up or your PCP regarding this. Please follow-up with an aircraft engine mechanic overhaul (Dr. Jb Mariano) regarding diabetes management Labs through PCP in 1 week: CBC, CMP, MG, VITAMIN D Pending Studies at Discharge: No Stand-Alone Forms: My Chirpme, Smoking Cessation Medications and DC Order Prescriptions: New carvedilol 12.5 mg Tablet 12.5 mg PO BIDM Qty: 60 0RF nifedipine [Procardia XL] 30 mg Tablet Extended Release 24hr 30 mg PO QAM Qty: 30 0RF bumetanide 1 mg Tablet 1 mg PO QAM Qty: 30 0RF sennosides [Senokot] 8.6 mg Tablet 17.2 mg PO HS PRN (Reason: constipation) Qty: 14 0RF Rx Instructions: Available edvj-wkq-ftftrrr potassium chloride 10 mEq tablet extended release 10 meq PO DAILY Qty: 14 0RF Continued cholecalciferol (vitamin D3) 50 mcg (2,000 unit) capsule 50 mcg PO DAILY Qty: 30 8RF oxybutynin chloride 5 mg tablet 5 mg PO BID Qty: 60 4RF thiamine HCl (vitamin B1) [Vitamin B-1] 100 mg tablet 300 mg PO BID lidocaine 5 % adhesive patch,medicated 1 patch topical DAILY Patient Comments: 12 hrs on and 12 hrs off Rx Instructions: leave on most painful area for up to 12 hrs naltrexone 50 mg tablet 50 mg PO HS multivitamin Tablet 1 tab PO DAILY montelukast 10 mg Tablet 10 mg PO DAILY loratadine [Claritin] 10 mg Tablet 10 mg PO DAILY PRN (Reason: allergies) omeprazole 20 mg Tablet,Delayed Release (Dr/Ec) 40 mg PO QAM coenzyme Q10 400 mg Capsule 400 mg PO DAILY omega 1-wmv-itz-fish oil [Fish Oil] 1,000 (120-180) mg Capsule 1,400 mg PO QID Qty: 0 ezetimibe [Zetia] 10 mg Tablet 10 mg PO DAILY Qty: 0 0RF albuterol sulfate 90 mcg/actuation Hfa Aerosol Inhaler 2 inh INHALATION DAILY PRN (Reason: Shortness Of Breath Or Wheezing) clotrimazole 1 % Cream 1 applic TOPICAL BID PRN (Reason: Rash) fluticasone propion-salmeterol [Wixela Inhub] 500-50 mcg/dose Blister With Device 1 inh INHALATION BID aspirin 81 mg Tablet,Delayed Release (Dr/Ec) 81 mg PO DAILY magnesium 250 mg Tablet 250 mg PO DAILY salicylic acid 3 % Shampoo 1 ea topical DAILY hydrocortisone 2.5 % Cream 1 applic TOPICAL DAILY PRN (Reason: Psoriasis) terazosin 10 mg Capsule 10 mg PO HS vitamin E 268 mg (400 unit) Capsule 268 mg PO DAILY clindamycin phosphate 1 % Solution 1 applic TOPICAL BID PRN (Reason: Breakouts) pregabalin 225 mg Capsule 225 mg PO BID Eucerin Cream 1 applic TOPICAL DAILY PRN (Reason: Dry Skin) selenium sulfide 2.5 % Lotion 1 applic TOPICAL Q OTHER DAY topiramate 25 mg tablet 0 mg PO BID Rx Instructions: Take 25mg by mouth BID (currently listed as Active/Suspended on med list from [facility]) Gemtesa 75 mg tablet 0 mg PO DAILY Rx Instructions: Last filled 03/28/24 x30 day supply. Original Directions: 75mg by mouth daily Discontinued diclofenac sodium 75 mg tablet,delayed release (DR/EC) 75 mg PO BID PRN (Reason: pain) metoprolol tartrate 25 mg Tablet 12.5 mg PO BID Discharge Orders: Discharge Order- CHF (Routine); Ordered 09/07/24 Ordered By: Juvencio Parkinson/Other Patient Handouts: Managing Type 2 Diabetes, Understanding High Blood Pressure, Hypertension Dc, Infec Common Resp Prevention Admission Data Admit Date/Time: 09/05/24 13:17 Attending Provider: Juvencio Zazueta Admit Provider: Quan Rivera Primary Care Provider: Dea Waldron Other Providers: Quan Rivera; [facility] Other Interventions: Discharge Summary Assessment (RN) Last Done: 09/07/24 09:54 Hospital Stay Data Consultations 09/05/24 12:27 ED Decision to Admit Stat Diagnostic Imagining Performed Chest X-Ray 09/05/24 10:42 XR chest 1V portable CLINICAL HISTORY: Dyspnea TECHNIQUE: Single frontal radiograph of the chest was obtained. Comparison: Comparison is made to chest radiograph 03/05/2021 FINDINGS: No lines and tubes are seen. Aortic valvular prosthesis is seen. Prominent right hilum is unchanged from prior exam. Mild prominence of the vascular markings is seen. No evidence of pleural effusion or pneumothorax. IMPRESSION: Cardiomegaly and mild pulmonary edema. No evidence of pneumonia. ACT 112: Negative or not required by law. Electronically signed by: Gigi Owens M.D. 09/05/2024 11:36 AM Chest X-Ray 09/06/24 16:08 EXAM: Radiographs of the Chest 2 Views INDICATION: Shortness of breath. TECHNIQUE: Frontal and lateral views of the chest. COMPARISON: No relevant prior studies available. FINDINGS: Lungs and pleural spaces: Diaphragmatic flattening consistent with air trapping noted with bilateral basilar predominantly lower lobe scarring or atelectasis. No consolidation or pulmonary edema. No pleural effusion or pneumothorax. Heart: Normal shape and configuration. Mediastinum: Prominent right paratracheal soft tissue density consistent with tortuous vessel. Bones/joints: No fracture, erosion or dislocation. Vasculature: Ectatic aorta. IMPRESSION: Chronic changes. No acute disease. ACT 112: Negative or not required by law. Electronically signed by Melania Donald 09-06-2024 4:54 PM Laboratory Results - last 48 hr 09/05/24 09/05/24 09/05/24 10:40 10:50 11:33 WBC 8.45 RBC 4.86 Hgb 14.1 Hct 42.1 MCV 86.6 MCH 29.0 MCHC 33.5 RDW Std Deviation 48.0 H RDW Coeff of Roni 15.2 H Plt Count 196 MPV 11.9 Immature Gran % (Auto) 0.5 Neut % (Auto) 66.3 Lymph % (Auto) 17.4 Green % (Auto) 8.3 Eos % (Auto) 6.6 Baso % (Auto) 0.9 Neut # (Auto) 5.60 Lymph # (Auto) 1.47 Green # (Auto) 0.70 H Eos # (Auto) 0.56 H Baso # (Auto) 0.08 Immature Gran # (Auto) 0.04 PT 10.8 INR 1.0 APTT 28 PTT Ratio 1.0 VBG pH VBG pCO2 VBG pO2 VBG HCO3 VBG O2 Saturation VBG Base Excess Sodium 142 Potassium 3.8 Chloride 110 H Carbon Dioxide 25 Anion Gap 7 BUN 19 Creatinine 0.87 Est Cr Clr Drug Dosing Not Reportable eGFR 88.87 BUN/Creatinine Ratio 21.8 H Glucose 129 H Estimat Average Glucose Hemoglobin A1c Calcium 9.4 Magnesium 2.0 Total Bilirubin 0.5 AST 38 ALT 33 Alkaline Phosphatase 49 Troponin I High Sens 10.8 B-Natriuretic Peptide 130 H Total Protein 6.5 Albumin 3.9 Globulin 2.6 Albumin/Globulin Ratio 1.5 Vitamin B12 Urine Color Yellow Urine Appearance Clear Urine pH 5.5 Ur Specific [place] 1.017 Urine Protein Negative Urine Glucose (UA) Negative Urine Ketones Negative Urine Blood Negative Urine Nitrite Negative Urine Bilirubin Negative Urine Urobilinogen Negative Ur Leukocyte Esterase Negative Adenovirus (PCR) Not Detected B. pertussis DNA (PCR) Not Detected B.parapertussis DNA PCR Not Detected C. pneumoniae DNA (PCR) Not Detected Coronavirus OC43 (PCR) Not Detected Coronavirus HKU1 (PCR) Not Detected Coronavirus 229E (PCR) Not Detected SARS-CoV-2 (PCR) Not Detected Coronavirus NL63 (PCR) Not Detected Human Metapneumovir PCR Not Detected Influenza Type A (PCR) Not Detected Influenza Type B (PCR) Not Detected M. pneumoniae (PCR) Not Detected Parainfluenza 1 (PCR) Not Detected Parainfluenza 2 (PCR) Not Detected Parainfluenza 3 (PCR) Not Detected Parainfluenza 4 (PCR) Not Detected RSV (PCR) Not Detected Entero/Rhino (PCR) Not Detected 09/05/24 09/05/24 09/06/24 14:55 20:14 07:34 WBC 8.52 RBC 4.97 Hgb 14.5 Hct 43.1 MCV 86.7 MCH 29.2 MCHC 33.6 RDW Std Deviation 48.6 H RDW Coeff of Roni 15.3 H Plt Count 194 MPV 11.8 Immature Gran % (Auto) Neut % (Auto) Lymph % (Auto) Green % (Auto) Eos % (Auto) Baso % (Auto) Neut # (Auto) Lymph # (Auto) Green # (Auto) Eos # (Auto) Baso # (Auto) Immature Gran # (Auto) PT INR APTT PTT Ratio VBG pH 7.37 VBG pCO2 51 H VBG pO2 22 VBG HCO3 30 VBG O2 Saturation < 60.0 VBG Base Excess 3.1 Sodium 141 Potassium 3.6 Chloride 107 Carbon Dioxide 29 Anion Gap 5 BUN 20 Creatinine 1.03 Est Cr Clr Drug Dosing Not Reportable eGFR 74.82 BUN/Creatinine Ratio 19.4 Glucose 114 H Estimat Average Glucose 143 Hemoglobin A1c 6.6 H Calcium 9.0 Magnesium 2.0 Total Bilirubin AST ALT Alkaline Phosphatase Troponin I High Sens 10.7 B-Natriuretic Peptide Total Protein Albumin Globulin Albumin/Globulin Ratio Vitamin B12 729 Urine Color Urine Appearance Urine pH Ur Specific [place] Urine Protein Urine Glucose (UA) Urine Ketones Urine Blood Urine Nitrite Urine Bilirubin Urine Urobilinogen Ur Leukocyte Esterase Adenovirus (PCR) B. pertussis DNA (PCR) B.parapertussis DNA PCR C. pneumoniae DNA (PCR) Coronavirus OC43 (PCR) Coronavirus HKU1 (PCR) Coronavirus 229E (PCR) SARS-CoV-2 (PCR) Coronavirus NL63 (PCR) Human Metapneumovir PCR Influenza Type A (PCR) Influenza Type B (PCR) M. pneumoniae (PCR) Parainfluenza 1 (PCR) Parainfluenza 2 (PCR) Parainfluenza 3 (PCR) Parainfluenza 4 (PCR) RSV (PCR) Entero/Rhino (PCR) Pending Results Patient Have Any Pending Studies at Discharge: No Discharge Instructions Given to Patient (Per Discharging Provider) DISCHARGE INSTRUCTION TO PATIENT/FAMILY: Follow-up with your primary care provider within 1 week regarding: Posthospital discharge, medication review, medication refills and follow-up on all your medical problems including heart failure and diabetes mellitus Please take all your discharge medications, discharge information and discharge instructions to all your doctors appointments. Avoid all NSAIDs including ibuprofen, Motrin, Advil, Aleve, naproxen, meloxicam, Toradol, diclofenac Follow-up with cardiology as outpatient in 1 to 2 weeks time regarding CHF and hypertension Follow-up with your outpatient paper cone maker (lung doctor) in 1 to 2 weeks time You have been prescribed diuretic Bumex 1 mg p.o. daily. Please check your weight every morning at the same time on the same scale. If your weight goes up by over 2 pounds in 24 hours or you are experiencing symptoms of breathlessness, take an extra dose of Bumex 1 mg in addition to your daily dose and call your PCP for further advice. If you develop chest pain or shortness of breath, please call 911. You would benefit from GLP-1 agonist or SGLT2 inhibitor for treatment of diabetes given you have congestive heart failure. Please speak to the extras casting director on follow-up or your PCP regarding this. Please follow-up with an aircraft engine mechanic overhaul (Dr. Jb Mariano) regarding diabetes management Labs through PCP in 1 week: CBC, CMP, MG, VITAMIN D Total Time Total Time Spent Total Time Spent (In Minutes): 40 minutes Coding Level of Care Code 54081 INP/OBS DISCH >30 MIN Diagnoses Acute hypoxemic respiratory failure J96.01 Acute exacerbation of CHF (congestive heart failure) I50.23 Heart failure type: systolic Hypertensive urgency I16.0 H/O alcohol dependence F10.21 Type 2 diabetes mellitus without complication, without long-term current use of insulin E11.9 Diabetes mellitus complication status: without complication Diabetes mellitus rodent exterminator insulin use: without retirement use
[2024-09-07 12:47] VITALS: BP 162/82; PULSE 84; RESP 20; TEMP 98.2; O2SAT 94
== END 2024-09-07 12:37 | disposition home or self-care (01) | DRG 291 ==
LOC: ED 10:18 → SUATTDRO 13:17 → 2N 13:17
DX: E11.42 Type 2 diabetes mellitus with diabetic polyneuropathy; Z79.82 Long term (current) use of aspirin; E78.00 Pure hypercholesterolemia, unspecified; G43.909 Migraine, unspecified, not intractable, without status migrainosus; Z90.79 Acquired absence of other genital organ(s); Z11.52 Encounter for screening for COVID-19; I11.0 Hypertensive heart disease with heart failure; J96.01 Acute respiratory failure with hypoxia; I16.0 Hypertensive urgency; G89.29 Other chronic pain; F10.21 Alcohol dependence, in remission; M54.50 Low back pain, unspecified; Z79.899 Other long term (current) drug therapy; Z88.8 Allergy status to other drugs, medicaments and biological substances; Z85.46 Personal history of malignant neoplasm of prostate; J44.89 Other specified chronic obstructive pulmonary disease; K21.9 Gastro-esophageal reflux disease without esophagitis; Z88.0 Allergy status to penicillin; Z86.16 Personal history of COVID-19; I50.33 Acute on chronic diastolic (congestive) heart failure; Z87.891 Personal history of nicotine dependence

== ENCOUNTER 2024-09-24 12:56 | Inpatient (IN) ==
--- NOTE | 2024-09-24 13:22 | Emergency Department Note ---
Impression & Plan Acute hypoxemic respiratory failure, Acute confusion, Acute exacerbation of chronic obstructive pulmonary disease, Shortness of breath, Left lower lobe pneumonia ED Provider Note NAME: MANDI TILLMAN Jr AGE: 78 SEX: M : 1945 ARRIVES VIA: Walk-In INFORMANT: Patient, ED PROVIDER(S): Moreno Santos MD CHIEF COMPLAINT: Shortness of breath, confusion MEDICAL DECISION MAKING: Patient presents due to concern for shortness of breath known history of COPD and CHF. IV was established and blood work was obtained. Diminished breath sounds throughout patient was ordered breathing treatments and was placed on supplemental nasal cannula oxygen and did have IV methylprednisolone was ordered. Patient with white count 17. Chest x-ray does show concern for developing pneumonia ordered Rocephin and Doxy. Normal H&H and platelet count kidney function is unremarkable TSH is low but free T4 is normal. BioFire negative. Patient's urinalysis negative. CT negative. VBG does not show significant hypercarbia. Given the patient's oxygen requirement I did speak the on-call hospital service and the patient was admitted to the medicine service. Critical Care: I have personally spent 38 minutes of critical care time in direct management of this patient. This includes bedside care, interpretation of diagnostic studies, and testing, discussion with consultants, patient, and family members, and other require inpatient management activities. This 38 minutes is in excess of all separately billable procedures. Discussion w/ other healthcare providers: Iram Salcedo PA-C and Dr. Schmitz inpatient medicine service Prior /Outside records reviewed: I reviewed part of a discharge summary from September [address] Rios. Patient with acute hypoxemic respiratory failure CHF hypertensive urgency. Patient with known history of asthma COPD hyperlipidemia migraine alcohol use prostate cancer presented with shortness of breath and chest x-ray due to concern for pulmonary edema. Echo reportedly from this note from September 05 EF of 65 to 70% LV wall motion is normal severe concentric left ventricular hypertrophy grade 1 diastolic dysfunction moderate aortic root dilatation mild MR RV normal size and function. Also with a known history of COPD. Differential diagnosis: Infection, dehydration, metabolic abnormality, hypo/hyperglycemia, electrolyte imbalance, anemia, UTI, pneumonia, thyroid dysfunction among others were considered. Diagnostics, as interpreted by me: ECG: Sinus with first-degree AV block, rate of 65 prolonged UT normal QRS duration, left axis deviation no obvious STEMI. No significant change from comparison September 05, 2024 Cardiac monitoring: An order was placed for continuous cardiac monitoring. The monitor shows a rate of 67 with sinus rhythm. Patient was placed on pulse oximetry Medical decision rules: None Imaging studies: I informally interpreted the patient's chest x-ray shows concern for possible developing left-sided pneumonia with formal report to follow. HPI: Patient presents due to concern for worsening gait and balance as well as confusion that occurred yesterday. Patient reportedly does have a known history of COPD and CHF. Weights been fairly flat with no significant lower extremity edema. Patient reportedly was not very coherent but is much better today. The patient did end up sleeping most of the day yesterday. Patient not on at home oxygen but does use a CPAP at nighttime. Patient does have significant exertional dyspnea. Patient did not walk want to come to the emergency department yesterday. Patient has not had any sort of productive cough. Patient reportedly is compliant with his medications. The patient did have a fall about a week ago and did have an abrasion to the right side of the face. Does take baby aspirin no blood thinners. No LOC at the time of the fall. The patient does have a chronic history of gait imbalance but seems to be worse than before typically is able to walk without any assistance but did require significant assistance yesterday and did require some assistance today. PAST MEDICAL HISTORY: See Below PAST SURGICAL HISTORY: See Below SOCIAL HISTORY: See Below HOME MEDICATIONS: See Below ALLERGIES: See Below VITALS: See Below PHYSICAL EXAMINATION: GENERAL: NAD, non-toxic. Wearing glasses. EYE EXAM: Normal conjunctiva. PERRL, no anisocoria and EOM's grossly intact w/o pain. OROPHARYNX: Moist mucus membranes, grossly normal dentition. NECK: Trachea midline, no stridor. Supple, no nuchal rigidity, no adenopathy, non-tender. No signs of meningismus. FROM of the neck with good chin to chest and neck extension. LUNGS: Diminished breath sounds throughout. Normal chest wall mechanics. HEART: NSR, no MRG. ABDOMEN: Abdomen soft, non-tender, no masses, no rebound or guarding. BACK: No CVA TTP. SKIN: No rashes and no bruising. UPPER EXTREMITIES: Upper extremities are grossly normal. LOWER EXTREMITIES: Grossly normal, no edema. NEURO EXAM: A&O x3, cranial nerves II-XII grossly intact, normal speech, moves all 4 extremities. Good uwixam-pd-cawl, no drift and no sensory deficits. Past Med/Surg History Problem List (Updated 09/25/24 @ 11:07 by Moreno Santos MD) Left lower lobe pneumonia (Acute) Shortness of breath (Acute) Acute exacerbation of chronic obstructive pulmonary disease (Acute) Acute confusion (Acute) Acute hypoxemic respiratory failure (Acute) Chronic diastolic CHF (congestive heart failure) Hospital-acquired pneumonia Hypertensive urgency Acute hypoxemic respiratory failure (Acute) Acute exacerbation of CHF (congestive heart failure) (Acute) Hypertensive emergency (Acute) Daily urinary incontinence Gait apraxia Cerebral ventriculomegaly Rupture of left proximal biceps tendon with repair Subjective memory complaints Prostate cancer Urinary urgency H/O alcohol dependence Elevated CPK Muscle cramp Lumbosacral radiculopathy Idiopathic polyneuropathy Alcohol use disorder Pulmonary nodule Acute delirium Altered mental status Delirium tremens Confusion (Acute) Pneumonia (Acute) Sepsis (Acute) Pneumonia Sepsis Ataxia Mixed headache Memory loss Hypercholesteremia (Chronic) Bladder neoplasm (Acute) Cervical stenosis of spine (Acute) Abnormal brain MRI (Acute) Arthritis (Chronic) Cognitive complaints (Acute) Common migraine without aura (Chronic) Hypertension (Chronic) Lumbar radiculopathy (Chronic) Peripheral neuropathy (Chronic) Tremor (Chronic) Type 2 diabetes mellitus (Chronic) diet controlled per pt Encounter for pre-operative examination Migraine Asthma (Chronic) Hypertension (Chronic) Diabetes (Chronic) Medical History History of injury of tendon bicep tear w/ repair History of alcohol withdrawal delirium (2020) Hypotension 02/07/25- states had blood pressure medication adjustment early 12/2023 by pcp; bp meds currently back up to previous dosages. History of pneumonia (2020) Tremor Pulmonary nodule monitoring Peripheral neuropathy Migraine Diabetes diet controlled Arthritis History of prostate cancer (2019) History of COVID-19 2021- no hosp; resolved H/O alcohol dependence has approx 1 drink per month now > "quit in February 2022" Osteoarthritis SOB (shortness of breath) on exertion 02/08/24- recent increase in SOB, nausea and weakness with exertion (home bp reading during episode 112/66) Asthma uses rescue inhaler 1-2 times per week Hyperlipidemia Hypertension Surgical History History of cataract surgery right Status post lung surgery H/O elbow surgery H/O prostatectomy History of bronchoscopy History of colonoscopy History of surgery on arm LEFT ELBOW-TENDON SURG Fusion of spine CERVICAL > "slightly" limited ROM side to side History of lobectomy of lung RIGHT MIDDLE LOBE-BENIGN Family History Father Diabetes Cardiac disorder Unknown Hypertension Mother Cardiac disorder Social History Smoking Status: Former smoker Tobacco Type: Cigarettes Second Hand Exposure: No; Do You Dip or Chew Tobacco: No; Hx Alcohol Use: No Hx Substance Use: No Preferred Language: [place] Communication Ability: Effective Auto Design Checker Required: No Beliefs That Will Affect Care: None Current Living Situation: Spouse Feels Safe at Home: Yes Safety Concerns: Feels Safe At This Time Assistive Devices: None Allergies Allergies Allergy/AdvReac Type Severity Reaction Status Date / Time Penicillins Allergy Severe SWELLING, Verified 09/24/24 17:13 TROUBLE BREATHING fluvastatin [From Lescol] Allergy Unknown Unknown Verified 09/24/24 17:13 lisinopril Allergy Unknown Unknown Verified 09/24/24 17:13 lovastatin Allergy Unknown PT DOESN'T Verified 09/24/24 17:13 REMEMBER REACTION-NAUSEA? simvastatin Allergy Unknown PT DOESN'T Verified 09/24/24 17:13 REMEMBER REACTION-NAUSEA? diazepam AdvReac Mild lethargy Verified 09/24/24 17:13 losartan AdvReac Mild Dizziness Verified 09/24/24 17:13 Uuaivkl-NQR-BmJ Reductase AdvReac Unknown NAUSEA Verified 09/24/24 17:13 Inhibitor [Laoqfgq-Cce-Awt Reductase Inhibitor] Home Meds Home Medications Medication Instructions Recorded Confirmed coenzyme Q10 400 mg capsule 400 mg PO QAM 03/01/21 09/24/24 loratadine 10 mg tablet (Claritin) 10 mg PO DAILY PRN allergies 03/01/21 09/24/24 montelukast 10 mg tablet 10 mg PO DAILY 03/01/21 09/24/24 multivitamin 1 tab PO QAM 03/01/21 09/24/24 omega 1-rdq-euq-fish oil 1,000 mg 1,400 mg PO QID ##0 03/01/21 09/24/24 (120 mg-180 mg) capsule (Fish Oil) omeprazole 20 mg tablet,delayed 40 mg PO QAM 03/01/21 09/24/24 release naltrexone 50 mg tablet 50 mg PO HS 11/16/21 09/24/24 thiamine HCl (vitamin B1) 100 mg 300 mg PO BID 04/28/23 09/24/24 tablet (Vitamin B-1) lidocaine 5 % topical patch 1 patch topical DAILY 05/02/23 09/24/24 albuterol sulfate 90 mcg/actuation 2 inh inhalation DAILY PRN 12/12/23 09/24/24 aerosol inhaler Shortness Of Breath Or Wheezing clotrimazole 1 % topical cream 1 applic topical BID PRN Rash 12/12/23 09/24/24 fluticasone 500 mcg-salmeterol 50 1 inh inhalation BID 12/12/23 09/24/24 mcg/dose blistr powdr for inhalation (Wixela Inhub) aspirin 81 mg tablet,delayed 81 mg PO QAM 09/05/24 09/24/24 release clindamycin phosphate 1 % topical 1 applic topical BID PRN Breakouts 09/05/24 09/24/24 solution hydrocortisone 2.5 % topical cream 1 applic topical DAILY PRN 09/05/24 09/24/24 Psoriasis lanolin alcohols-mineral 1 applic topical DAILY PRN Dry Skin 09/05/24 09/24/24 oil-w.petrolatum-ceresin topical cream (Eucerin topical cream) magnesium 250 mg tablet 250 mg PO DAILY 09/05/24 09/24/24 pregabalin 225 mg capsule 225 mg PO BID 09/05/24 09/24/24 salicylic acid 3 % shampoo 1 ea topical DAILY 09/05/24 09/24/24 selenium sulfide 2.5 % lotion 1 applic topical Q OTHER DAY 09/05/24 09/24/24 terazosin 10 mg capsule 10 mg PO HS 09/05/24 09/24/24 topiramate 25 mg tablet 0 mg PO BID Migraine Prevention 09/05/24 09/24/24 vibegron 75 mg tablet (Gemtesa) 75 mg PO DAILY 09/05/24 09/24/24 vitamin E 268 mg (400 unit) capsule 268 mg PO DAILY 09/05/24 09/24/24 cholecalciferol (vitamin D3) 50 50 mcg PO QAM 09/24/24 09/24/24 mcg (2,000 unit) capsule nifedipine 30 mg tablet,extended 30 mg PO QAM 09/24/24 09/24/24 release 24 hr potassium chloride 10 mEq 10 meq PO QAM 09/24/24 09/24/24 tablet,extended release Previous Rx's Medication Instructions Recorded ezetimibe 10 mg tablet (Zetia) 10 mg PO DAILY #0 tabs 03/11/21 oxybutynin chloride 5 mg tablet 5 mg PO BID #60 tabs 07/17/24 bumetanide 1 mg tablet 1 mg PO QAM #30 tabs 09/07/24 carvedilol 12.5 mg tablet 12.5 mg PO BIDM #60 tabs 09/07/24 sennosides 8.6 mg tablet (Senokot) 17.2 mg (2 x 8.6 mg) PO HS PRN 09/07/24 constipation #14 tabs Results & Data (ED) Vital Signs Vital Signs - 24 hr 09/24/24 12:57 09/24/24 13:26 09/24/24 13:39 Temperature 36.6 C Temperature Source Skin Pulse Rate 61 68 64 Pulse Rate [Apical] Pulse Rate from SpO2 Sensor 64 Respiratory Rate 18 15 Respiratory Effort / Characteristics Respiratory Depth Respiratory Pattern Blood Pressure 107/70 Blood Pressure [Left Arm] Blood Pressure Mean 82 Blood Pressure Mean [Left Arm] Pulse Oximetry 95 90 Oxygen Delivery Method Room Air Oxygen Flow Rate Sepsis Recent Fever Within 48 Hours No Sepsis New/Unexplained Change in Mental Status No Sepsis Action Taken by Nursing No Action Required Oxygen Flow Rate - Titration Pulse Oximetry Post Tiitration 09/24/24 13:45 09/24/24 13:49 09/24/24 13:49 Temperature Temperature Source Pulse Rate 65 Pulse Rate [Apical] Pulse Rate from SpO2 Sensor 65 Respiratory Rate 20 Respiratory Effort / Characteristics Respiratory Depth Respiratory Pattern Blood Pressure Blood Pressure [Left Arm] Blood Pressure Mean Blood Pressure Mean [Left Arm] Pulse Oximetry 94 88 L 97 Oxygen Delivery Method Room Air Nebulizer Oxygen Flow Rate 6 Sepsis Recent Fever Within 48 Hours Sepsis New/Unexplained Change in Mental Status Sepsis Action Taken by Nursing Oxygen Flow Rate - Titration 2 Pulse Oximetry Post Tiitration 94 09/24/24 13:54 09/24/24 14:00 09/24/24 14:30 Temperature Temperature Source Pulse Rate 63 62 67 Pulse Rate [Apical] Pulse Rate from SpO2 Sensor 66 62 64 Respiratory Rate 16 18 20 Respiratory Effort / Characteristics Respiratory Depth Respiratory Pattern Blood Pressure Blood Pressure [Left Arm] Blood Pressure Mean Blood Pressure Mean [Left Arm] Pulse Oximetry 91 97 90 Oxygen Delivery Method Oxygen Flow Rate Sepsis Recent Fever Within 48 Hours Sepsis New/Unexplained Change in Mental Status Sepsis Action Taken by Nursing Oxygen Flow Rate - Titration Pulse Oximetry Post Tiitration 09/24/24 14:41 09/24/24 14:57 09/24/24 15:09 Temperature Temperature Source Pulse Rate 62 86 Pulse Rate [Apical] Pulse Rate from SpO2 Sensor 67 66 Respiratory Rate 16 18 Respiratory Effort / Characteristics Respiratory Depth Respiratory Pattern Blood Pressure 118/64 Blood Pressure [Left Arm] Blood Pressure Mean 74 Blood Pressure Mean [Left Arm] Pulse Oximetry 91 91 Oxygen Delivery Method Oxygen Flow Rate Sepsis Recent Fever Within 48 Hours Sepsis New/Unexplained Change in Mental Status Sepsis Action Taken by Nursing Oxygen Flow Rate - Titration Pulse Oximetry Post Tiitration 09/24/24 15:13 09/24/24 15:15 09/24/24 15:24 Temperature Temperature Source Pulse Rate 64 Pulse Rate [Apical] 67 Pulse Rate from SpO2 Sensor 67 Respiratory Rate 20 18 Respiratory Effort / Characteristics Non-Labored Spontaneous Respiratory Depth Normal Respiratory Pattern Regular Blood Pressure 116/74 Blood Pressure [Left Arm] 116/74 Blood Pressure Mean 90 Blood Pressure Mean [Left Arm] 88 Pulse Oximetry 93 93 Oxygen Delivery Method Nasal Cannula Oxygen Flow Rate 2 Sepsis Recent Fever Within 48 Hours Sepsis New/Unexplained Change in Mental Status Sepsis Action Taken by Nursing Oxygen Flow Rate - Titration Pulse Oximetry Post Tiitration 09/24/24 15:45 09/24/24 15:51 09/24/24 16:01 Temperature Temperature Source Pulse Rate 65 65 Pulse Rate [Apical] Pulse Rate from SpO2 Sensor 67 65 Respiratory Rate 17 13 Respiratory Effort / Characteristics Respiratory Depth Respiratory Pattern Blood Pressure 121/73 Blood Pressure [Left Arm] Blood Pressure Mean 94 Blood Pressure Mean [Left Arm] Pulse Oximetry 94 93 Oxygen Delivery Method Oxygen Flow Rate Sepsis Recent Fever Within 48 Hours Sepsis New/Unexplained Change in Mental Status Sepsis Action Taken by Nursing Oxygen Flow Rate - Titration Pulse Oximetry Post Tiitration 09/24/24 16:01 09/24/24 16:03 09/24/24 16:27 Temperature Temperature Source Pulse Rate 65 65 Pulse Rate [Apical] Pulse Rate from SpO2 Sensor 70 64 Respiratory Rate 15 14 Respiratory Effort / Characteristics Respiratory Depth Respiratory Pattern Blood Pressure 121/73 Blood Pressure [Left Arm] Blood Pressure Mean 94 Blood Pressure Mean [Left Arm] Pulse Oximetry 90 91 Oxygen Delivery Method Oxygen Flow Rate Sepsis Recent Fever Within 48 Hours Sepsis New/Unexplained Change in Mental Status Sepsis Action Taken by Nursing Oxygen Flow Rate - Titration Pulse Oximetry Post Tiitration 09/24/24 16:39 09/24/24 16:42 Temperature Temperature Source Pulse Rate 63 64 Pulse Rate [Apical] Pulse Rate from SpO2 Sensor 68 67 Respiratory Rate 15 16 Respiratory Effort / Characteristics Respiratory Depth Respiratory Pattern Blood Pressure Blood Pressure [Left Arm] Blood Pressure Mean Blood Pressure Mean [Left Arm] Pulse Oximetry 90 91 Oxygen Delivery Method Oxygen Flow Rate Sepsis Recent Fever Within 48 Hours Sepsis New/Unexplained Change in Mental Status Sepsis Action Taken by Nursing Oxygen Flow Rate - Titration Pulse Oximetry Post Tiitration Home Medications Current Medication List: was personally reviewed by me Laboratory Data Attestation: I reviewed the patient's lab results. 09/25/24 04:06 09/25/24 04:15 Lab Results 09/24/24 09/24/24 09/24/24 Range/Units 13:30 14:00 14:40 WBC 17.03 H (4.8-10.8) K/ul RBC 5.10 (4.70-6.10) M/uL Hgb 15.0 (14.0-18.0) g/dl Hct 44.2 (42.0-52.0) % MCV 86.7 (80.0-100.0) fL MCH 29.4 (25.0-34.0) pg MCHC 33.9 (32.0-36.0) g/dL RDW Std Deviation 47.2 H (36.4-46.3) fL RDW Coeff of Roni 14.7 H (11.5-14.5) % Plt Count 194 (130-400) K/uL MPV 12.4 (9.4-12.4) fL Immature Gran % (Auto) 0.5 % Neut % (Auto) 82.7 % Lymph % (Auto) 7.7 % [place] % (Auto) 7.8 % Eos % (Auto) 0.8 % Baso % (Auto) 0.5 % Neut # (Auto) 14.09 H (1.40-6.50) K/uL Lymph # (Auto) 1.31 (1.20-3.40) K/uL [place] # (Auto) 1.33 H (0.11-0.59) K/uL Eos # (Auto) 0.13 (0.00-0.50) K/uL Baso # (Auto) 0.08 (0.00-0.20) K/uL Immature Gran # (Auto) 0.09 (0.01-0.20) K/uL VBG pH (7.36-7.41) VBG pCO2 (38-50) mmHg VBG pO2 mmHg VBG HCO3 mmol/L VBG O2 Saturation % VBG Base Excess mEq/L Sodium 140 (136-145) mmol/L Potassium 3.7 (3.5-5.1) mmol/L Chloride 105 (98-107) mmol/L Carbon Dioxide 28 (21-32) mmol/L Anion Gap 7 (3-11) BUN 18 (6-23) mg/dl Creatinine 0.92 (0.6-1.4) mg/dl Est Cr Clr Drug Dosing 76.5 ml/min eGFR 85.68 BUN/Creatinine Ratio 19.6 (10-20) Glucose 131 H (70-99(Fasting)) mg/dl Calcium 9.2 (8.6-10.3) mg/dl Magnesium 2.0 (1.7-2.4) mg/dl Total Bilirubin 1.1 H (0.2-1.0) mg/dl AST 18 (13-39) U/L ALT 19 (7-52) U/L Alkaline Phosphatase 51 (34-104) U/L Total Protein 7.0 (6.0-8.3) gm/dl Albumin 3.9 (3.4-5.0) gm/dl Globulin 3.1 (2.5-4.0) gm/dl Albumin/Globulin Ratio 1.3 (0.9-2) TSH 0.156 L (0.300-4.500) uIu/ml Free T4 0.99 (0.61-1.60) ng/dl Urine Color Yellow Urine Appearance Clear (Clear) Urine pH 6.0 (4.5-7.5) Ur Specific [place] 1.005 (1.000-1.030) Urine Protein Negative (Negative) Urine Glucose (UA) Negative (Negative) Urine Ketones Negative (Negative) Urine Blood Negative (Negative) Urine Nitrite Negative (Negative) Urine Bilirubin Negative (Negative) Urine Urobilinogen Negative (Negative) Ur Leukocyte Esterase Negative (Negative) Adenovirus (PCR) Not Detected (NotDetected) B. pertussis DNA (PCR) Not Detected (NotDetected) B.parapertussis DNA PCR Not Detected (NotDetected) C. pneumoniae DNA (PCR) Not Detected (NotDetected) Coronavirus OC43 (PCR) Not Detected (NotDetected) Coronavirus HKU1 (PCR) Not Detected (NotDetected) Coronavirus 229E (PCR) Not Detected (NotDetected) SARS-CoV-2 (PCR) Not Detected (NotDetected) Coronavirus NL63 (PCR) Not Detected (NotDetected) Human Metapneumovir PCR Not Detected (NotDetected) Influenza Type A (PCR) Not Detected (NotDetected) Influenza Type B (PCR) Not Detected (NotDetected) M. pneumoniae (PCR) Not Detected (NotDetected) Parainfluenza 1 (PCR) Not Detected (NotDetected) Parainfluenza 2 (PCR) Not Detected (NotDetected) Parainfluenza 3 (PCR) Not Detected (NotDetected) Parainfluenza 4 (PCR) Not Detected (NotDetected) RSV (PCR) Not Detected (NotDetected) Entero/Rhino (PCR) Not Detected (NotDetected) 09/24/24 Range/Units 14:57 WBC (4.8-10.8) K/ul RBC (4.70-6.10) M/uL Hgb (14.0-18.0) g/dl Hct (42.0-52.0) % MCV (80.0-100.0) fL MCH (25.0-34.0) pg MCHC (32.0-36.0) g/dL RDW Std Deviation (36.4-46.3) fL RDW Coeff of Roni (11.5-14.5) % Plt Count (130-400) K/uL MPV (9.4-12.4) fL Immature Gran % (Auto) % Neut % (Auto) % Lymph % (Auto) % [place] % (Auto) % Eos % (Auto) % Baso % (Auto) % Neut # (Auto) (1.40-6.50) K/uL Lymph # (Auto) (1.20-3.40) K/uL [place] # (Auto) (0.11-0.59) K/uL Eos # (Auto) (0.00-0.50) K/uL Baso # (Auto) (0.00-0.20) K/uL Immature Gran # (Auto) (0.01-0.20) K/uL VBG pH 7.42 H (7.36-7.41) VBG pCO2 46 (38-50) mmHg VBG pO2 45 mmHg VBG HCO3 30 mmol/L VBG O2 Saturation 75.2 % VBG Base Excess 4.5 mEq/L Sodium (136-145) mmol/L Potassium (3.5-5.1) mmol/L Chloride (98-107) mmol/L Carbon Dioxide (21-32) mmol/L Anion Gap (3-11) BUN (6-23) mg/dl Creatinine (0.6-1.4) mg/dl Est Cr Clr Drug Dosing ml/min eGFR BUN/Creatinine Ratio (10-20) Glucose (70-99(Fasting)) mg/dl Calcium (8.6-10.3) mg/dl Magnesium (1.7-2.4) mg/dl Total Bilirubin (0.2-1.0) mg/dl AST (13-39) U/L ALT (7-52) U/L Alkaline Phosphatase (34-104) U/L Total Protein (6.0-8.3) gm/dl Albumin (3.4-5.0) gm/dl Globulin (2.5-4.0) gm/dl Albumin/Globulin Ratio (0.9-2) TSH (0.300-4.500) uIu/ml Free T4 (0.61-1.60) ng/dl Urine Color Urine Appearance (Clear) Urine pH (4.5-7.5) Ur Specific [place] (1.000-1.030) Urine Protein (Negative) Urine Glucose (UA) (Negative) Urine Ketones (Negative) Urine Blood (Negative) Urine Nitrite (Negative) Urine Bilirubin (Negative) Urine Urobilinogen (Negative) Ur Leukocyte Esterase (Negative) Adenovirus (PCR) (NotDetected) B. pertussis DNA (PCR) (NotDetected) B.parapertussis DNA PCR (NotDetected) C. pneumoniae DNA (PCR) (NotDetected) Coronavirus OC43 (PCR) (NotDetected) Coronavirus HKU1 (PCR) (NotDetected) Coronavirus 229E (PCR) (NotDetected) SARS-CoV-2 (PCR) (NotDetected) Coronavirus NL63 (PCR) (NotDetected) Human Metapneumovir PCR (NotDetected) Influenza Type A (PCR) (NotDetected) Influenza Type B (PCR) (NotDetected) M. pneumoniae (PCR) (NotDetected) Parainfluenza 1 (PCR) (NotDetected) Parainfluenza 2 (PCR) (NotDetected) Parainfluenza 3 (PCR) (NotDetected) Parainfluenza 4 (PCR) (NotDetected) RSV (PCR) (NotDetected) Entero/Rhino (PCR) (NotDetected) Administered Medications Acetaminophen (Acetaminophen 325 Mg Tab) 650 mg PO Q4H PRN PRN Reason: pain/fever Stop: 10/24/24 17:28 Last Admin: 09/25/24 00:22 Dose: 650 mg Documented By: BRAULIO Albuterol (Albut/Ipratrop 3mg/0.5mg Neb 3 Ml Vial) 3 ml NEB QIDR [facility]; Protocol Stop: 10/24/24 18:59 Last Admin: 09/25/24 07:37 Dose: 3 ml Documented By: JAY JAY Admin: 09/24/24 19:45 Dose: 3 ml Documented By: MIKEY Aspirin (Aspirin 81 Mg Ectab) 81 mg PO DAILY [facility] Stop: 10/25/24 08:59 Last Admin: 09/25/24 09:19 Dose: 81 mg Documented By: GIAN Bumetanide (Bumetanide 1 Mg Tab) 1 mg PO QAM [facility] Stop: 10/25/24 08:59 Last Admin: 09/25/24 09:19 Dose: 1 mg Documented By: GIAN Carvedilol (Carvedilol 12.5 Mg Tab) [facility] [place]: 10/24/24 17:59 Last Admin: 09/25/24 09:13 Dose: 12.5 mg Documented By: Admin: 09/24/24 18:45 Dose: 12.5 mg Documented By: PRECIOUS Ezetimibe (Ezetimibe 10 Mg Tab) 10 mg PO DAILY [facility] Stop: 10/25/24 08:59 Last Admin: 09/25/24 09:17 Dose: 10 mg Documented By: GIAN Enoxaparin Sodium (Enoxaparin Inj 40 Mg/0.4 Ml Syr) 40 mg SQ Q24H [facility] Stop: 10/25/24 08:59 Last Admin: 09/25/24 09:16 Dose: 40 mg Documented By: GIAN Fluticasone/Vilanterol (Fluticasone/Vilanterol 200/25mcg 14 Puffs/Inhaler) 1 puffs INH DAILY [facility] Stop: 10/25/24 08:59 Last Admin: 09/25/24 09:16 Dose: 1 puffs Documented By: GIAN Guaifenesin (Guaifenesin 600 Mg Tabcr) 600 mg PO Q12 [facility] Stop: 10/24/24 20:59 Last Admin: 09/25/24 09:15 Dose: 600 mg Documented By: Admin: 09/24/24 21:39 Dose: 600 mg Documented By: MIKEY Levofloxacin/Dextrose (Levaquin/D5w) 750 mg in 150 mls @ 100 mls/hr IV Q24H [facility]; Protocol Stop: 10/02/24 08:59 Last Admin: 09/25/24 09:19 Dose: 100 mls/hr Documented By: GIAN Lidocaine (Lidocaine 5% 1 Patch) 1 patch TD DAILY [facility] Stop: 10/25/24 08:59 Last Admin: 09/25/24 09:09 Dose: 1 patch Documented By: GIAN Miscellaneous (Remove Lidoderm Patch) 1 each N/A DAILY@2100 [facility] Stop: 10/24/24 20:59 Last Admin: 09/24/24 21:39 Dose: 1 each Documented By: MIKEY Montelukast Sodium (Montelukast Sodium 10 Mg Tablet) 10 mg PO DAILY [facility] Stop: 10/25/24 08:59 Last Admin: 09/25/24 09:17 Dose: 10 mg Documented By: GIAN Naltrexone HCl (Naltrexone Hcl 50 Mg Tab) 50 mg PO HS [facility] Stop: 10/24/24 20:59 Last Admin: 09/24/24 22:24 Dose: 50 mg Documented By: MIKEY Nifedipine (Nifedipine Extended Rel 30 Mg Tabcr) 30 mg PO QAM JOSHUA Stop: 10/25/24 08:59 Last Admin: 09/25/24 09:17 Dose: 30 mg Documented By: GIAN Oxybutynin Chloride (Oxybutynin Chloride 5 Mg Tab) 5 mg PO BID JOSUHA Stop: 10/24/24 20:59 Last Admin: 09/25/24 09:15 Dose: 5 mg Documented By: Admin: 09/24/24 22:23 Dose: 5 mg Documented By: MIKEY Pantoprazole Sodium (Pantoprazole 40 Mg Tab) 40 mg PO DAILY JOSHUA Stop: 10/25/24 08:59 Last Admin: 09/25/24 09:17 Dose: 40 mg Documented By: GIAN Potassium Chloride (Potassium Chloride 10 Meq Tabcr) 10 meq PO DAILY JOSHUA Stop: 10/25/24 08:59 Last Admin: 09/25/24 09:36 Dose: 10 meq Documented By: GIAN Pregabalin (Pregabalin 75 Mg Cap) 225 mg PO BID JOSHUA Stop: 10/24/24 20:59 Last Admin: 09/25/24 09:36 Dose: 225 mg Documented By: Admin: 09/24/24 21:39 Dose: 225 mg Documented By: MIKEY Terazosin HCl (Terazosin Hcl 5 Mg Cap) 10 mg PO HS JOSHUA Stop: 10/24/24 20:59 Last Admin: 09/24/24 22:25 Dose: 10 mg Documented By: MIKEY Thiamine HCl (Thiamine Hcl 100 Mg Tab) 300 mg PO BID JOSHUA Stop: 10/24/24 20:59 Last Admin: 09/25/24 09:15 Dose: 300 mg Documented By: Admin: 09/24/24 22:24 Dose: 300 mg Documented By: MIKEY Vibegron (Vibegron 75 Mg Tab) 75 mg PO DAILY JOSHUA Stop: 10/25/24 08:59 Last Admin: 09/25/24 09:17 Dose: 75 mg Documented By: GIAN Vitamin D (Cholecalciferol 25 Mcg (1000 Units) Tab) 50 mcg PO DAILY JOSHUA Stop: 10/25/24 08:59 Last Admin: 09/25/24 09:17 Dose: 50 mcg Documented By: GIAN Discontinued Medications Albuterol (Albut/Ipratrop 3mg/0.5mg Neb 3 Ml Vial) 6 ml NEB NOW STA; Protocol Stop: 09/24/24 13:50 Last Admin: 09/24/24 13:56 Dose: 6 ml Documented By: PINA Doxycycline Hyclate (Doxycycline Hyclate 100 Mg Cap) 100 mg PO NOW STA Stop: 09/24/24 15:49 Last Admin: 09/24/24 15:53 Dose: 100 mg Documented By: MIKEY Ceftriaxone Sodium (Rocephin) 2,000 mg in 50 mls @ 100 mls/hr IV NOW STA Stop: 09/24/24 16:02 Last Infusion: 09/24/24 16:34 Dose: Infused Documented By: Admin: 09/24/24 15:53 Dose: 100 mls/hr Documented By: MIKEY Methylprednisolone (Methylprednisolone 125 Mg/2 Ml Vial) 125 mg IV NOW STA Stop: 09/24/24 13:52 Last Admin: 09/24/24 13:56 Dose: 125 mg Documented By: PINA Imaging Data Radiologist's Impression: Chest X-Ray 09/24/24 13:49 XR chest 1V portable CLINICAL HISTORY: weakness, sob TECHNIQUE: Single frontal radiograph of the chest was obtained. Comparison: Comparison is made to chest radiograph 09/06/2024 FINDINGS: Cervical spine fixation hardware is seen. Cardiomegaly is noted. Faint left lower lung airspace opacities are seen. No evidence of pleural effusion or pneumothorax. IMPRESSION: Left lower lung airspace opacities. This may represent atelectasis, pneumonia, and/or aspiration. ACT 112: Negative or not required by law. Electronically signed by: Gigi Owens M.D. 09/24/2024 2:20 PM Discharge Plan Visit Data Chief Complaint: Weakness Stated Complaint: WEAKNESS ED Provider: Moreno Santos Discharge Problem: Acute hypoxemic respiratory failure, Acute confusion, Acute exacerbation of chronic obstructive pulmonary disease, Shortness of breath, Left lower lobe pneumonia Patient Disposition: Admitted As Inpatient Discharge Instructions Interventions: ED Discharge Assessment Last Done: 09/24/24 14:37 Discharge Problem: Left lower lobe pneumonia Qualifiers: Pneumonia type: due to unspecified organism Qualified Code(s): J18.9 - Pneumonia, unspecified organism
[2024-09-24] MEDS: methylPREDNISolone 125 MG/2 ML VIAL IV STA (13:56)
[2024-09-24] MEDS: ALBUT/IPRATROP 3MG/0.5MG NEB 3 ML VIAL NEB STA (13:56)
[2024-09-24 14:15] LABS: Basophils # (auto) 0.08 K/uL (0.00-0.20); Basophils % (auto) 0.5 %; Eosinophils # (auto) 0.13 K/uL (0.00-0.50); Eosinophils % (auto) 0.8 %; Hematocrit (blood only) 44.2 % (42.0-52.0); Immature Granulocytes # (auto) 0.09 K/uL (0.01-0.20); Immature Granulocytes % (auto) 0.5 %; Lymphocytes # (auto) 1.31 K/uL (1.20-3.40); Lymphocytes % (auto) 7.7 %; Mean Corpuscular Hemoglobin 29.4 pg (25.0-34.0); Mean Corpuscular Hgb Conc 33.9 g/dL (32.0-36.0); Mean Corpuscular Volume 86.7 fL (80.0-100.0); Mean Platelet Volume 12.4 fL (9.4-12.4); Monocytes # (auto) 1.33 K/uL (0.11-0.59); Monocytes % (auto) 7.8 %; Neutrophils # (auto) 14.09 K/uL (1.40-6.50); Neutrophils % (auto) 82.7 %; Platelet Count 194 K/uL (130-400); RDW Coefficient of Variation 14.7 % (11.5-14.5); RDW Standard Deviation 47.2 fL (36.4-46.3); White Blood Count 17.03 K/ul (4.8-10.8)
--- NOTE | 2024-09-24 14:21 | XRay Report ---
XR chest 1V portable CLINICAL HISTORY: weakness, sob TECHNIQUE: Single frontal radiograph of the chest was obtained. Comparison: Comparison is made to chest radiograph 09/06/2024 FINDINGS: Cervical spine fixation hardware is seen. Cardiomegaly is noted. Faint left lower lung airspace opaci ties are seen. No evidence of pleural effusion or pneumothorax. IMPRESSION: Left lower lung airspace opacities. This may represent atelectasis, pneumonia, and/or aspiration. ACT 112: Negative or not required by law. Electronically signed by: Gigi Owens M.D. 09/24/2024 2:20 PM
[2024-09-24 14:31] LABS: Albumin Globulin Ratio 1.3 (0.9-2); Albumin Level 3.9 gm/dl (3.4-5.0); BUN Creatinine Ratio 19.6 (10-20); Bilirubin,Total 1.1 mg/dl (0.2-1.0); Calcium 9.2 mg/dl (8.6-10.3); Creatinine Clr Calc Pharmacy 76.5 ml/min; Globulin 3.1 gm/dl (2.5-4.0); Potassium 3.7 mmol/L (3.5-5.1)
[2024-09-24 14:46] LABS: Thyroid Stimulating Hormone 0.156 uIu/ml (0.300-4.500)
[2024-09-24 14:51] LABS: Appearance Urine Clear (Clear); Bilirubin Urine Negative (Negative); Blood Urine Negative (Negative); Color Urine Yellow; Glucose Urine UA Negative (Negative); Ketones Urine Negative (Negative); Leukocyte Esterase Urine Negative (Negative); Nitrite Urine Negative (Negative); Protein Urine Negative (Negative); Specific Gravity Urine 1.005 (1.000-1.030); Urobilinogen Urine Negative (Negative)
[2024-09-24 14:58] LABS: Adenovirus PCR Not Detected (NotDetected); Bordetella parapertussis PCR Not Detected (NotDetected); Bordetella pertussis PCR Not Detected (NotDetected); Chlamydia pneumoniae PCR Not Detected (NotDetected); Coronavirus 229E PCR Not Detected (NotDetected); Coronavirus CoV-2 (COVID19)PCR Not Detected (NotDetected); Coronavirus HKU1 PCR Not Detected (NotDetected); Coronavirus NL63 PCR Not Detected (NotDetected); Coronavirus OC43PCR Not Detected (NotDetected); Human Metapneumovirus PCR Not Detected (NotDetected); Influenza A PCR Not Detected (NotDetected); Influenza B PCR Not Detected (NotDetected); Mycoplasma pneumoniae PCR Not Detected (NotDetected); Parainfluenza Virus 1 PCR Not Detected (NotDetected); Parainfluenza Virus 2 PCR Not Detected (NotDetected); Parainfluenza Virus 3 PCR Not Detected (NotDetected); Parainfluenza Virus 4 PCR Not Detected (NotDetected); Respiratory Syncytial VirusPCR Not Detected (NotDetected); Rhinovirus/Enterovirus PCR Not Detected (NotDetected)
[2024-09-24 15:03] LABS: Base Excess VBG 4.5 mEq/L; HCO3 VBG 30 mmol/L; Oxygen Saturation VBG 75.2 %; PCO2 VBG 46 mmHg (38-50); PO2 VBG 45 mmHg; pH VBG 7.42 (7.36-7.41)
--- NOTE | 2024-09-24 15:18 | CT Scan Report ---
CT head/brain wo con CLINICAL HISTORY: confusion, fall, CHI days ago Technique: Contiguous axial CT images of the head were acquired from the base of the skull to the ruba ayaan without intravenous contrast administration. Images were viewed in brain, subdural and bone [facility]. Automated dose lowering techniques and/or adjustment according to patient size were utilized for this exam. Comparison: Comparison is made to CT head 03/01/2021 Findings: Areas of decreased attenuation are present in the periventricular and subcortical white matter bilate rally consistent with small vessel ischemic disease. Generalized cerebral atrophy with commensurate e nlargement of the ventricles, sulci, and cisterns is also present. There is no acute intracranial hem orrhage or evidence of acute territorial infarction. No shift of the midline structures, mass effect, or extra-axial abnormalities are shown. Atherosclerotic calcifications are present in the intracran ial segments of the internal carotid arteries. Imaged portions of the paranasal sinuses and mastoid air cells are clear. The orbits appear normal. There are no acute fractures of the calvaria or scalp swelling. Impression: No acute intracranial hemorrhage, no evidence of acute territorial infarction or other acute intracra nial disease process. ACT 112: Negative or not required by law. Electronically signed by: iGgi Owens M.D. 09/24/2024 3:17 PM
[2024-09-24 15:20] LABS: T4 Free Thyroxine 0.99 ng/dl (0.61-1.60)
[2024-09-24] MEDS: DOXYCYCLINE HYCLATE 100 MG CAP PO STA (15:53)
[2024-09-24] MEDS: cefTRIAXone SODIUM 2,000 MG/50 ML BAG IV STA (15:53)
--- NOTE | 2024-09-24 16:54 | History & Physical Report ---
Date of Service September 24, 2024 Assessment & Plan (1) Hospital-acquired pneumonia: Plan: Acute - Admit to med/surg unit - Carb consistent diet - D/C Rocephin and Doxy in favor of Levaquin 750mg IV daily, to start tomorrow AM - Mucinex 600mg BID - Duonebs QIDR and q2 prn dyspnea/wheezing - Defer steroids as no significant evidence of bronchospasm - Reviewed CBC, repeat in AM, defer blood cultures, as only 1 SIRS criteria present (2) Acute hypoxemic respiratory failure: Plan: In setting of mild LLL PNA and COPD - Continue supplemental O2, wean as able for goal pulse ox 88-92% - Nebs and other treatment as outlined above (3) Chronic diastolic CHF (congestive heart failure): Plan: - Continue Coreg, Bumex, and KCl supplement - Low salt diet (4) Prostate cancer: Plan: History of such s/p radical prostatectomy - Follows with urology, PSA has been undetectable Plan GERD - chronic, change omeprazole to protonix per hospital formulary DMT2 - diet controlled per pt, last a1c 6.5%. Carb consistent diet ordered. Defer accuchecks HTN - chronic, continue procardia, coreg, and terazosin History of ETOH overuse - continue thiamine Lovenox for VTE ppx ordered. PT/OT eval requested. AM labs including cbc, cmp, and mag ordered. Above plan of care has been d/w Dr. Schmitz who agrees with aforementioned. Further orders as warranted per attending. History of Present Illness Chief Complaint: Weakness Primary Care Provider: Dea Waldron PA-C Vahe is a 78 yo M with a pmhx of prostate CA s/p radical prostatectomy 1998, HTN, diastolic CHF, COPD, and diet-controlled DMT2 who presents to the ER accompanied by his c/o increased dyspnea, productive cough, and chills. Reportedly his oxygen level per family was low yesterday. His daughter who is a [employer] had her medical equipment with her and was able to check his vital signs. His oxygen during that time was reportedly 82%, however, despite family encouraging him to come to the ER, he refused. He slept most of the day and was increasingly confused. Today, he reportedly felt better after sleeping through the night and using his CPAP. However, he was finally agreeable to come in and be seen. He does endorse worsening cough over the past couple of days, productive of yellow-brown sputum, and worsening shortness of breath which is exacerbated by movement and improves with rest. Denies LE edema or orthopnea. Weight has been stable. He has been compliant with his medications since his discharge from the hospital 2 weeks ago for CHF exacerbation and acute hypoxic respiratory failure. He had a two-step prior to d/c and did not require home O2. His ER w/u revealed a subtle developing LLL opacity and he has a 17,000 wbc count with neutrophilic predominance. His VBG was unremarkable. Incidentally he was noted to have a TSH of 0.156 with a normal FT4. His respiratory biofire was negative. He received a Duoneb, placed on O2 at 3L and treated with Methylprednisolone 125mg IV x1, a dose of Rocephin and Doxycycline and has been referred to the hospital medicine service for admission. Allergies Allergy/AdvReac Type Severity Reaction Status Date / Time Penicillins Allergy Severe SWELLING, Verified 09/24/24 17:13 TROUBLE BREATHING fluvastatin [From Lescol] Allergy Unknown Unknown Verified 09/24/24 17:13 lisinopril Allergy Unknown Unknown Verified 09/24/24 17:13 lovastatin Allergy Unknown PT DOESN'T Verified 09/24/24 17:13 REMEMBER REACTION-NAUSEA? simvastatin Allergy Unknown PT DOESN'T Verified 09/24/24 17:13 REMEMBER REACTION-NAUSEA? diazepam AdvReac Mild lethargy Verified 09/24/24 17:13 losartan AdvReac Mild Dizziness Verified 09/24/24 17:13 Bsnexcx-RNR-WeK Reductase AdvReac Unknown NAUSEA Verified 09/24/24 17:13 Inhibitor [Blpnqgi-Kse-Tjx Reductase Inhibitor] Home Medications Medication Instructions Recorded Confirmed Type coenzyme Q10 400 mg capsule 400 mg PO QAM 03/01/21 09/24/24 History loratadine 10 mg tablet (Claritin) 10 mg PO DAILY PRN allergies 03/01/21 09/24/24 History montelukast 10 mg tablet 10 mg PO DAILY 03/01/21 09/24/24 History multivitamin 1 tab PO QAM 03/01/21 09/24/24 History omega 8-yyz-jaj-fish oil 1,000 mg 1,400 mg PO QID ##0 03/01/21 09/24/24 History (120 mg-180 mg) capsule (Fish Oil) omeprazole 20 mg tablet,delayed 40 mg PO QAM 03/01/21 09/24/24 History release ezetimibe 10 mg tablet (Zetia) 10 mg PO DAILY #0 tabs 03/11/21 09/24/24 Rx naltrexone 50 mg tablet 50 mg PO HS 11/16/21 09/24/24 History thiamine HCl (vitamin B1) 100 mg 300 mg PO BID 04/28/23 09/24/24 History tablet (Vitamin B-1) lidocaine 5 % topical patch 1 patch topical DAILY 05/02/23 09/24/24 History albuterol sulfate 90 mcg/actuation 2 inh inhalation DAILY PRN 12/12/23 09/24/24 History aerosol inhaler Shortness Of Breath Or Wheezing clotrimazole 1 % topical cream 1 applic topical BID PRN Rash 12/12/23 09/24/24 History fluticasone 500 mcg-salmeterol 50 1 inh inhalation BID 12/12/23 09/24/24 History mcg/dose blistr powdr for inhalation (Wixela Inhub) oxybutynin chloride 5 mg tablet 5 mg PO BID #60 tabs 07/17/24 09/24/24 Rx aspirin 81 mg tablet,delayed 81 mg PO QAM 09/05/24 09/24/24 History release clindamycin phosphate 1 % topical 1 applic topical BID PRN Breakouts 09/05/24 09/24/24 History solution hydrocortisone 2.5 % topical cream 1 applic topical DAILY PRN 09/05/24 09/24/24 History Psoriasis lanolin alcohols-mineral 1 applic topical DAILY PRN Dry Skin 09/05/24 09/24/24 History oil-w.petrolatum-ceresin topical cream (Eucerin topical cream) magnesium 250 mg tablet 250 mg PO DAILY 09/05/24 09/24/24 History pregabalin 225 mg capsule 225 mg PO BID 09/05/24 09/24/24 History salicylic acid 3 % shampoo 1 ea topical DAILY 09/05/24 09/24/24 History selenium sulfide 2.5 % lotion 1 applic topical Q OTHER DAY 09/05/24 09/24/24 History terazosin 10 mg capsule 10 mg PO HS 09/05/24 09/24/24 History topiramate 25 mg tablet 0 mg PO BID Migraine Prevention 09/05/24 09/24/24 History vibegron 75 mg tablet (Gemtesa) 75 mg PO DAILY 09/05/24 09/24/24 History vitamin E 268 mg (400 unit) capsule 268 mg PO DAILY 09/05/24 09/24/24 History bumetanide 1 mg tablet 1 mg PO QAM #30 tabs 09/07/24 09/24/24 Rx carvedilol 12.5 mg tablet 12.5 mg PO BIDM #60 tabs 09/07/24 09/24/24 Rx sennosides 8.6 mg tablet (Senokot) 17.2 mg (2 x 8.6 mg) PO HS PRN 09/07/24 09/24/24 Rx constipation #14 tabs cholecalciferol (vitamin D3) 50 50 mcg PO QAM 09/24/24 09/24/24 History mcg (2,000 unit) capsule nifedipine 30 mg tablet,extended 30 mg PO QAM 09/24/24 09/24/24 History release 24 hr potassium chloride 10 mEq 10 meq PO QAM 09/24/24 09/24/24 History tablet,extended release Past Med/Surg History Problem List (Updated 09/24/24 @ 17:09 by Marina Salcedo PA-C) Chronic diastolic CHF (congestive heart failure) Hospital-acquired pneumonia Hypertensive urgency Acute hypoxemic respiratory failure (Acute) Acute exacerbation of CHF (congestive heart failure) (Acute) Hypertensive emergency (Acute) Daily urinary incontinence Gait apraxia Cerebral ventriculomegaly Rupture of left proximal biceps tendon with repair Subjective memory complaints Prostate cancer Urinary urgency H/O alcohol dependence Elevated CPK Muscle cramp Lumbosacral radiculopathy Idiopathic polyneuropathy Alcohol use disorder Pulmonary nodule Acute delirium Altered mental status Delirium tremens Confusion (Acute) Pneumonia (Acute) Sepsis (Acute) Pneumonia Sepsis Ataxia Mixed headache Memory loss Hypercholesteremia (Chronic) Bladder neoplasm (Acute) Cervical stenosis of spine (Acute) Abnormal brain MRI (Acute) Arthritis (Chronic) Cognitive complaints (Acute) Common migraine without aura (Chronic) Hypertension (Chronic) Lumbar radiculopathy (Chronic) Peripheral neuropathy (Chronic) Tremor (Chronic) Type 2 diabetes mellitus (Chronic) diet controlled per pt Encounter for pre-operative examination Migraine Asthma (Chronic) Hypertension (Chronic) Diabetes (Chronic) Medical History History of injury of tendon bicep tear w/ repair History of alcohol withdrawal delirium (2020) Hypotension 02/07/25- states had blood pressure medication adjustment early 12/2023 by pcp; bp meds currently back up to previous dosages. History of pneumonia (2020) Tremor Pulmonary nodule monitoring Peripheral neuropathy Migraine Diabetes diet controlled Arthritis History of prostate cancer (2019) History of COVID-19 2021- no hosp; resolved H/O alcohol dependence has approx 1 drink per month now > "quit in February 2022" Osteoarthritis SOB (shortness of breath) on exertion 02/08/24- recent increase in SOB, nausea and weakness with exertion (home bp reading during episode 112/66) Asthma uses rescue inhaler 1-2 times per week Hyperlipidemia Hypertension Surgical History History of cataract surgery right Status post lung surgery H/O elbow surgery H/O prostatectomy History of bronchoscopy History of colonoscopy History of surgery on arm LEFT ELBOW-TENDON SURG Fusion of spine CERVICAL > "slightly" limited ROM side to side History of lobectomy of lung RIGHT MIDDLE LOBE-BENIGN Family History Father Diabetes Cardiac disorder Unknown Hypertension Mother Cardiac disorder Social History Smoking Status: Never smoker Tobacco Type: Cigarettes Second Hand Exposure: No; Do You Dip or Chew Tobacco: No; Hx Alcohol Use: No Hx Substance Use: No Preferred Language: Portuguese Communication Ability: Effective Deputy Attorney General Required: No Beliefs That Will Affect Care: None Current Living Situation: Spouse Feels Safe at Home: Yes Assistive Devices: Cane Review of Systems 2 Review of Systems: All systems reviewed and are unremarkable except as noted in HPI and below. Denies fever, chills, fatigue, headache, nasal congestion, sore throat, chest pain, palpitations, orthopnea, PND, abdominal pain, n/v/d, constipation, dysuria, hematuria, frequency, back pain, joint pain or swelling, easy bruising or bleeding, skin lesions or rashes. Physical Exam 2 Physical Exam: GENERAL: 78 yo well-nourished elderly WM. NAD. EYES: EOMI. PERRLA. Anicteric. HENT: Moist mucous membranes. No cervical lymphadenopathy. LUNGS: Nonlabored. Bibasilar fine crackles L>R. CARDIOVASCULAR: Regular rate and rhythm with ectopy. ABDOMEN: Soft, non-tender and non-distended. Bowel sounds normoactive x 4 quad. EXTREMITIES: No edema. Non-tender. Peripheral pulses +2/4. NEUROLOGIC: A&O x3. No focal neurological deficits. CN II-XII grossly intact. PSYCHIATRIC: Cooperative. Appropriate mood and affect. SKIN: Warm, dry, intact. No rashes or lesions. Results & Data Results & Data Vital Signs (Past 12 Hours) Vital Signs Temp Pulse Pulse Resp BP BP Pulse Ox 09/24/24 15:51 65 13 93 09/24/24 15:45 65 17 94 09/24/24 15:24 64 18 93 09/24/24 15:15 116/74 09/24/24 15:13 67 20 116/74 93 09/24/24 15:09 86 18 91 09/24/24 14:57 62 16 91 09/24/24 14:41 118/64 09/24/24 14:30 67 20 90 09/24/24 14:00 62 18 97 09/24/24 13:54 63 16 91 09/24/24 13:49 97 09/24/24 13:49 88 L 09/24/24 13:45 65 20 94 09/24/24 13:39 64 15 90 09/24/24 13:26 68 09/24/24 12:57 36.6 C 61 18 107/70 95 O2 Del Method O2 Flow Rate 09/24/24 15:51 09/24/24 15:45 09/24/24 15:24 09/24/24 15:15 09/24/24 15:13 Nasal Cannula 2 09/24/24 15:09 09/24/24 14:57 09/24/24 14:41 09/24/24 14:30 09/24/24 14:00 09/24/24 13:54 09/24/24 13:49 Nebulizer 6 09/24/24 13:49 Room Air 09/24/24 13:45 09/24/24 13:39 09/24/24 13:26 09/24/24 12:57 Room Air Laboratory Results 09/24/24 13:30 09/24/24 13:30 Diagnostic Findings Chest X-Ray 09/24/24 13:49 XR chest 1V portable CLINICAL HISTORY: weakness, sob TECHNIQUE: Single frontal radiograph of the chest was obtained. Comparison: Comparison is made to chest radiograph 09/06/2024 FINDINGS: Cervical spine fixation hardware is seen. Cardiomegaly is noted. Faint left lower lung airspace opacities are seen. No evidence of pleural effusion or pneumothorax. IMPRESSION: Left lower lung airspace opacities. This may represent atelectasis, pneumonia, and/or aspiration. ACT 112: Negative or not required by law. Electronically signed by: Gigi Owens M.D. 09/24/2024 2:[address] 09/24/24 13:51 CT head/brain wo con CLINICAL HISTORY: confusion, fall, CHI days ago Technique: Contiguous axial CT images of the head were acquired from the base of the skull to the vertex without intravenous contrast administration. Images were viewed in brain, subdural and bone windows. Automated dose lowering techniques and/or adjustment according to patient size were utilized for this exam. Comparison: Comparison is made to CT head 03/01/2021 Findings: Areas of decreased attenuation are present in the periventricular and subcortical white matter bilaterally consistent with small vessel ischemic disease. Generalized cerebral atrophy with commensurate enlargement of the ventricles, sulci, and cisterns is also present. There is no acute intracranial hemorrhage or evidence of acute territorial infarction. No shift of the midline structures, mass effect, or extra-axial abnormalities are shown. Atherosclerotic calcifications are present in the intracranial segments of the internal carotid arteries. Imaged portions of the paranasal sinuses and mastoid air cells are clear. The orbits appear normal. There are no acute fractures of the calvaria or scalp swelling. Impression: No acute intracranial hemorrhage, no evidence of acute territorial infarction or other acute intracranial disease process. ACT 112: Negative or not required by law. Electronically signed by: Gigi Owens M.D. 09/24/2024 3:17 PM ECG Additional Comments: Sinus rhythm with first degree AV block - no ST -t wave changes. L axis deviation. QTc 391 Code Status & VTE Plan Code Status Discussed with patient and family = full code VTE Prophylaxis Plan VTE Prophylaxis will be ordered: Yes Supervising Physician Co-Signing Physician Notes Patient was seen and examined independently I discussed the case with Marina Salcedo PAC I reviewed pertinent past medical social family history and also the plan of care and agree with the plan of care. 74-year-old male discharged from our facility September 07 after admission with hypoxic respiratory failure due to diastolic heart failure. Presents with a left lower lobe infiltrate consistent with pneumonia. There is a history of chronic respiratory failure, diabetes, alcohol abuse on naltrexone, migraine. Additionally suffers from chronic low back pain He presents with marked dyspnea metabolic encephalopathy on presentation found to have infiltrate on chest x-ray had blood cultures obtained initiated on levofloxacin therapyBioFire negative Lungs have decreased breath sounds bilaterally rales bilaterally at the lower bases Lower extremities have equal strength and sensation distal Treat for healthcare associated pneumonia given recent hospital stay covering gram-negative pneumonia with levofloxacin. Physical therapy evaluation and treat given chronic low back pain and difficulty ambulating Recent B12 was replete previous B1 was replete Any exceptions will be noted below PG Care Time/CCT Total # of Minutes Spent Total Time Spent with Patient: Total time spent is greater than 50% in coordination of care (as documented) at patient's floor/unit and/or counseling patient: 77 minutes Coding Level of Care Code 02702 INT INP/OBS CARE 3/75MIN Diagnoses Hospital-acquired pneumonia J18.9; Y95 Acute hypoxemic respiratory failure J96.01 Chronic diastolic CHF (congestive heart failure) I50.32 Prostate cancer C61
[2024-09-24] MEDS ORDERED: MAGNESIUM HYDROXIDE SUSP 30 ML UDC PO PRN (17:29)
[2024-09-24] MEDS ORDERED: MELATONIN 3 MG TAB PO PRN (17:29)
[2024-09-24] MEDS ORDERED: SENNA 8.6 MG TAB PO PRN (17:29)
[2024-09-24] MEDS ORDERED: POLYETHYLENE (MIRALAX) 17 GM PACK PO PRN (17:29)
[2024-09-24] MEDS ORDERED: ONDANSETRON INJ 2 MG/ML 2 ML VIAL IV PRN (17:29)
[2024-09-24] MEDS ORDERED: ALUMINUM/MAGNESIUM SUSP 30 ML UDC PO PRN (17:29)
[2024-09-24] MEDS: carvediloL 12.5 MG TAB PO SCH (18:45)
[2024-09-24] MEDS: ALBUT/IPRATROP 3MG/0.5MG NEB 3 ML VIAL NEB SCH (19:45)
[2024-09-24] MEDS ORDERED: TOPIRAMATE 25 MG TAB PO SCH (21:00)
[2024-09-24] MEDS: guaiFENesin 600 MG TABCR PO SCH (21:39)
[2024-09-24] MEDS: PREGABALIN 75 MG CAP PO SCH (21:39)
[2024-09-24] MEDS: oxyBUTYnin chloride 5 MG TAB PO SCH (22:23)
[2024-09-24] MEDS: NALTREXONE HCL 50 MG TAB PO SCH (22:24)
[2024-09-24] MEDS: THIAMINE HCL 100 MG TAB PO SCH (22:24)
[2024-09-24] MEDS: TERAZOSIN HCL 5 MG CAP PO SCH (22:25)
[2024-09-25] MEDS: ACETAMINOPHEN 325 MG TAB PO PRN (00:22)
[2024-09-25 05:41] LABS: Albumin Globulin Ratio 1.3 (0.9-2); Albumin Level 3.7 gm/dl (3.4-5.0); BUN Creatinine Ratio 22.9 (10-20); Bilirubin,Total 0.6 mg/dl (0.2-1.0); Calcium 8.9 mg/dl (8.6-10.3); Creatinine Clr Calc Pharmacy 83.5 ml/min; Globulin 2.9 gm/dl (2.5-4.0); Potassium 3.6 mmol/L (3.5-5.1); Total Protein 6.6 gm/dl (6.0-8.3)
[2024-09-25 05:51] LABS: Hematocrit (blood only) 39.7 % (42.0-52.0); Hemoglobin 13.5 g/dl (14.0-18.0); Mean Corpuscular Hemoglobin 29.5 pg (25.0-34.0); Mean Corpuscular Volume 86.7 fL (80.0-100.0); Mean Platelet Volume 12.2 fL (9.4-12.4); Platelet Count 208 K/uL (130-400); RDW Coefficient of Variation 14.5 % (11.5-14.5); RDW Standard Deviation 46.5 fL (36.4-46.3); Red Blood Count 4.58 M/uL (4.70-6.10); White Blood Count 14.91 K/ul (4.8-10.8)
[2024-09-25 05:52] LABS: Basophils # (auto) 0.02 K/uL (0.00-0.20); Basophils % (auto) 0.1 %; Eosinophils # (auto) 0.05 K/uL (0.00-0.50); Eosinophils % (auto) 0.3 %; Immature Granulocytes # (auto) 0.11 K/uL (0.01-0.20); Immature Granulocytes % (auto) 0.7 %; Lymphocytes # (auto) 0.77 K/uL (1.20-3.40); Lymphocytes % (auto) 5.2 %; Monocytes # (auto) 0.31 K/uL (0.11-0.59); Monocytes % (auto) 2.1 %; Neutrophils # (auto) 13.65 K/uL (1.40-6.50); Neutrophils % (auto) 91.6 %
--- NOTE | 2024-09-25 06:59 | Electrocardiogram Report ---
Test Reason : Blood Pressure : */* mmHG Vent. Rate : 65 BPM Atrial Rate : 65 BPM P-R Int : 218 ms QRS Dur : 100 ms QT Int : 376 ms P-R-T Axes : 41 -59 59 degrees QTcB Int : 391 ms Sinus rhythm with 1st degree A-V block Left axis deviation Incomplete right bundle branch block Abnormal ECG When compared with ECG of 05-Sep-2024 10:29, No significant change was found Confirmed by Bacilio Pina ([id number]) on 09/24/2024 4:16:17 PM Referred By: REFERRED SELF Confirmed By: Bacilio Pina
[2024-09-25] MEDS: LIDOCAINE 5% 1 PATCH TD SCH (09:09)
--- NOTE | 2024-09-25 09:14 | Hospitalist Progress Note ---
Date of Service September 25, 2024 Assessment & Plan (1) Hospital-acquired pneumonia: Plan: 79-year-old male with recent discharge from our facility for heart failure presents with a left lower lobe pneumonia on chest x-ray Associated acute Evoxac respiratory failure requiring supplemental oxygen - D/C Rocephin and Doxy in favor of Levaquin 750mg IV daily, - Mucinex 600mg BID - Duonebs QIDR and q2 prn dyspnea/wheezing - Defer steroids as no significant evidence of bronchospasm - Reviewed CBC, repeat in AM, defer blood cultures, as only 1 SIRS criteria present (2) Chronic diastolic CHF (congestive heart failure): Plan: - Stable continue Coreg, Bumex, and KCl supplement - Low salt diet (3) Prostate cancer: Plan: History of such s/p radical prostatectomy - Follows with urology, PSA has been undetectable Plan GERD - chronic, change omeprazole to protonix per hospital formulary DMT2 - diet controlled per pt, last a1c 6.5%. Carb consistent diet ordered. Defer accuchecks HTN - chronic, continue procardia, coreg, and terazosin History of ETOH overuse - continue thiamine Lovenox for VTE ppx ordered. PT/OT eval requested. AM labs including cbc, cmp, and mag ordered. Above plan of care has been d/w Dr. Schmitz who agrees with aforementioned. Further orders as warranted per attending. Admission and Anticipated Discharge Date Admission Date: September 24, 2024 Subjective But in the morning patient improved but was still requiring some oxygen supplementation Coughing is much less Appetite is improving Physical Exam Physical Exam: lungs only with some basilar rhonchi changes mild skin discoloration to legs Results & Data Results & Data Vital Signs (Past 12 Hours) Vital Signs Temp Pulse Pulse Resp BP BP Pulse Ox 09/25/24 07:38 71 25 H 92 09/25/24 07:14 97.5 F L 66 19 133/77 93 09/25/24 07:04 63 09/25/24 05:00 63 18 117/59 L 94 09/25/24 04:00 63 18 125/82 91 09/25/24 03:00 66 20 130/75 92 09/25/24 02:00 68 18 119/68 95 09/25/24 01:00 70 16 122/74 92 09/24/24 23:39 76 09/24/24 23:00 79 13 95 12/30/24 23:00 115/76 09/24/24 22:51 70 15 93 09/24/24 22:45 69 18 91 09/24/24 22:30 67 17 95 09/24/24 22:12 68 17 91 09/24/24 22:11 69 19 141/76 H 91 09/24/24 22:00 141/76 H 09/24/24 21:57 69 17 92 09/24/24 21:54 70 18 91 09/24/24 21:36 76 16 92 09/24/24 21:21 76 18 93 O2 Del Method O2 Flow Rate 09/25/24 07:38 Nasal Cannula 3 09/25/24 07:14 Nasal Cannula 2 09/25/24 07:04 09/25/24 05:00 Nasal Cannula 3 09/25/24 04:00 Nasal Cannula 3 09/25/24 03:00 Nasal Cannula 3 09/25/24 02:00 Nasal Cannula 3 09/25/24 01:00 Nasal Cannula 3 09/24/24 23:39 09/24/24 23:00 09/24/24 23:00 09/24/24 22:51 09/24/24 22:45 09/24/24 22:30 09/24/24 22:12 09/24/24 22:11 Nasal Cannula 3 09/24/24 22:00 09/24/24 21:57 09/24/24 21:54 09/24/24 21:36 09/24/24 21:21 Laboratory Results review cbc review chemsitry PG Care Time/CCT Total # of Minutes Spent Total Time Spent with Patient: Total time spent is greater than 50% in coordination of care (as documented) at patient's floor/unit and/or counseling patient: Coding Level of Care Code 81296 SUB INP/OBS CARE 3/50MIN Diagnoses Hospital-acquired pneumonia J18.9; Y95 Chronic diastolic CHF (congestive heart failure) I50.32 Prostate cancer C61
[2024-09-25] MEDS: ENOXAPARIN INJ 40 MG/0.4 ML SYR SQ SCH (09:16)
[2024-09-25] MEDS: FLUTICASONE/VILANTEROL 200/25MCG 14 PUFFS/INHALER INH SCH (09:16)
[2024-09-25] MEDS: MONTELUKAST SODIUM 10 MG TABLET PO SCH (09:17)
[2024-09-25] MEDS: EZETIMIBE 10 MG TAB PO SCH (09:17)
[2024-09-25] MEDS: PANTOprazole 40 MG TAB PO SCH (09:17)
[2024-09-25] MEDS: VIBEGRON 75 MG TAB PO SCH (09:17)
[2024-09-25] MEDS: NIFEdipine EXTENDED REL 30 MG TABCR PO SCH (09:17)
[2024-09-25] MEDS: CHOLECALCIFEROL 25 MCG (1000 UNITS) TAB PO SCH (09:17)
[2024-09-25] MEDS: BUMETANIDE 1 MG TAB PO SCH (09:19)
[2024-09-25] MEDS: ASPIRIN 81 MG ECTAB PO SCH (09:19)
[2024-09-25] MEDS: levoFLOXacin/D5W 750 MG/150 ML BAG IV SCH (09:19)
[2024-09-25] MEDS: POTASSIUM CHLORIDE 10 MEQ TABCR PO SCH (09:36)
[2024-09-26 07:06] VITALS: RESP 16
[2024-09-26] MEDS ORDERED: GLUCAGON FOR INJ 1 MG VIAL SQ PRN (10:51)
[2024-09-26] MEDS ORDERED: CARBOHYDRATES FOR HYPOGLYCEMIA PO PRN (10:51)
[2024-09-26] MEDS ORDERED: GLUCOSE 10 TAB/TUBE PO PRN (10:51)
[2024-09-26] MEDS ORDERED: DEXTROSE 50% 50 ML SYRINGE IV PRN (10:51)
[2024-09-26] MEDS ORDERED: GLUCOSE 40% GEL 15 GM TUBE PO PRN (10:51)
[2024-09-26] MEDS ORDERED: ALBUT/IPRATROP 3MG/0.5MG NEB 3 ML VIAL NEB PRN (11:21)
[2024-09-26] MEDS: INSULIN ASPART PER UNIT CHARGE SC SCH (12:45)
[2024-09-26] MEDS ORDERED: methylPREDNISolone 10 mg/mL (For Ped Dose < 7mg) IV SCH (13:45)
[2024-09-26] MEDS: methylPREDNISolone 40 MG in SYRINGE 0 ML IV SCH (14:23)
--- NOTE | 2024-09-26 15:54 | Hospitalist Progress Note ---
Date of Service September 26, 2024 Assessment & Plan (1) Hospital-acquired pneumonia: Plan: No sputum produced for culture. Continue Levaquin, day 2. Nebulizers switched to as needed frequency. (2) Acute hypoxemic respiratory failure: Plan: Supplemental oxygen per nasal cannula to maintain saturation greater than 90%. Wean off as tolerated (3) Acute exacerbation of chronic obstructive pulmonary disease: Plan: No audible wheezing now. Nebulizer treatments switched to as needed dosing only. Treat underlying pneumonia (4) Lumbar sprain: Plan: Parenteral steroid therapy started todaySeptember 26. Probable prednisone tapering dose at discharge (5) Chronic diastolic CHF (congestive heart failure): Plan: Stable. Continue current medical management. Monitor intake and output (6) Prostate cancer: Plan: s/p radical prostatectomy. Supportive care. Follows with urology, PSA has been undetectable (7) Type 2 diabetes mellitus: Plan: ADA diet. Sliding scale coverage as needed. Continue current medical management Plan Hopeful discharge to home tomorrow, September 27 Admission and Anticipated Discharge Date Admission Date: September 24, 2024 Subjective Alert and oriented. No distress. He states he aggravated his back when he was leaning forward in the bed trying to reach his phone. Parenteral steroid therapy started. Will repeat chest x-ray again tomorrow, September 27. There is no audible wheezing and nebulizer treatments switched from scheduled to as needed. He has a history of type 2 diabetes. Sliding scale insulin ordered since parenteral steroids have been started. Review of Systems 2 Review of Systems: Constitutionalno fever or chills ENTno blurred vision, no double vision, no epistaxis, no sore throat Respiratoryno cough, no wheezing, no shortness of breath Cardiacno palpitations, no chest pain, no syncope Lady nausea, vomiting, diarrhea, melena, hematochezia GUno urinary retention, no urinary incontinence, no dysuria, no hematuria Musculoskeletallumbar discomfort. No muscle tenderness Skinno bruising, no rashes, no pruritus Neurono isolated weakness, no paresthesia Psychno depression, no anxiety Physical Exam 2 Physical Exam: General-alert and oriented x3, no fever, no chills HEENT-head atraumatic and normocephalic, pupils equal and reactive to light, extraocular muscles intact Neck-no lymphadenopathy or thyromegaly, trachea midline Chest-clear to auscultation. No rales, wheezing or rhonchi Cardiac-regular rate and rhythm, normal S1 and S2 Abdomen-normal bowel sounds, no hepatosplenomegaly Extremities-no cyanosis, clubbing, or edema Musculoskeletaltenderness in the lumbar area bilaterally. Neuro-cranial nerves II through XII intact, motor and sensory function within normal limits, strength symmetrical, no focal deficits Psych-normal affect, normal mood Results & Data Results & Data Vital Signs (Past 12 Hours) Vital Signs Temp Pulse Resp BP Pulse Ox O2 Del Method O2 Flow Rate 09/26/24 15:25 36.3 C L 70 16 153/90 H 91 Room Air 09/26/24 07:16 63 16 94 Nasal Cannula 2 09/26/24 07:05 36.5 C 63 16 145/80 H 94 Nasal Cannula 2 Laboratory Results 09/25/24 04:15 09/25/24 04:15 PG Care Time/CCT Total # of Minutes Spent Total Time Spent with Patient: Total time spent is greater than 50% in coordination of care (as documented) at patient's floor/unit and/or counseling patient: Coding Level of Care Code 57048 SUB INP/OBS CARE 3/50MIN Diagnoses Hospital-acquired pneumonia J18.9; Y95 Acute hypoxemic respiratory failure J96.01 Acute exacerbation of chronic obstructive pulmonary disease J44.1 Lumbar sprain S33.5XXA Chronic diastolic CHF (congestive heart failure) I50.32 Prostate cancer C61 Type 2 diabetes mellitus without complication, without long-term current use of insulin E11.9 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
[2024-09-27 06:59] LABS: Basophils # (auto) 0.01 K/uL (0.00-0.20); Basophils % (auto) 0.1 %; Eosinophils # (auto) 0.01 K/uL (0.00-0.50); Eosinophils % (auto) 0.1 %; Hematocrit (blood only) 41.6 % (42.0-52.0); Hemoglobin 14.1 g/dl (14.0-18.0); Immature Granulocytes # (auto) 0.08 K/uL (0.01-0.20); Immature Granulocytes % (auto) 0.9 %; Lymphocytes % (auto) 6.8 %; Mean Corpuscular Hemoglobin 29.1 pg (25.0-34.0); Mean Corpuscular Hgb Conc 33.9 g/dL (32.0-36.0); Mean Platelet Volume 11.7 fL (9.4-12.4); Monocytes # (auto) 0.38 K/uL (0.11-0.59); Monocytes % (auto) 4.3 %; Neutrophils # (auto) 7.74 K/uL (1.40-6.50); Neutrophils % (auto) 87.8 %; Platelet Count 241 K/uL (130-400); RDW Coefficient of Variation 14.3 % (11.5-14.5); RDW Standard Deviation 45.1 fL (36.4-46.3); Red Blood Count 4.84 M/uL (4.70-6.10); White Blood Count 8.82 K/ul (4.8-10.8)
[2024-09-27 07:31] LABS: BUN Creatinine Ratio 20.9 (10-20); Calcium 8.9 mg/dl (8.6-10.3); Creatinine Clr Calc Pharmacy 76.2 ml/min
--- NOTE | 2024-09-27 08:30 | XRay Report ---
EXAM: XR chest 1V portable CLINICAL HISTORY: LLL pneumonia. TECHNIQUE: An X-ray image of the chest was obtained in AP projection. COMPARISON: X-ray dated 09/24/2024. FINDINGS: Pulmonary Parenchyma: Haziness is seen in the left lower zone. Prominent bronchovascular markings are seen bilaterally. Elevated dome of right hemidiaphragm. Minimal blunting of the right costophrenic angle could be due to pleural thickening/minimal pleural effusion. Heart and Mediastinum: Heart size and shape are normal. No mediastinal widening or masses. No hilar or mediastinal lymphadenopathy. Bony Thorax: Bony thorax appears intact without fractures or deformities. Intervention seen in the lower cervical spine. No loosening or break. Soft Tissues: Soft tissues overlying the chest wall are unremarkable. IMPRESSION: Haziness in the left lower zone, would recommend clinical and lab correlation to rule out the possibility of pulmonary infection. Minimal blunting of the right costophrenic angle could be due to pleural thickening/minimal pleural effusion. No significant interval changes. Electronically signed by Kendy Alexandra 09-27-2024 08:29 AM
[2024-09-27 08:41] VITALS: BP 155/95; PULSE 71; TEMP 97.5
[2024-09-27 13:35] VITALS: O2SAT 94
--- NOTE | 2024-09-27 18:03 | Discharge Summary ---
Discharge Summary Date of Service September 27, 2024 Principal Dx & Hospital Course #1 = Principal Diagnosis (1) Hospital-acquired pneumonia: 79-year-old male with recent discharge from our facility for heart failure presents with a left lower lobe pneumonia on chest x-ray Associated acute Evoxac respiratory failure requiring supplemental oxygen - Levaquin 750mg to complete a course after discharge - Mucinex 600mg BID [id number] as needed -Wheezing has resolved -Completed course of steroids after discharge with morning to watch for blood sugar spike (2) Chronic diastolic CHF (congestive heart failure): - Stable continue Coreg, Bumex, and KCl supplement - Low salt diet (3) Prostate cancer: History of such s/p radical prostatectomy - Follows with urology, PSA has been undetectable Plan GERD - chronic, change omeprazole to protonix per hospital formulary DMT2 - diet controlled per pt, last a1c 6.5%. Carb consistent diet ordered. Defer accuchecks HTN - chronic, continue procardia, coreg, and terazosin History of ETOH overuse - continue thiamine Notes For Next Care Provider Short course of steroids Admission HPI Per Admitting Provider Vahe is a 78 yo M with a pmhx of prostate CA s/p radical prostatectomy 1998, HTN, diastolic CHF, COPD, and diet-controlled DMT2 who presents to the ER accompanied by his c/o increased dyspnea, productive cough, and chills. Reportedly his oxygen level per family was low yesterday. His daughter who is a CARE TECH had her medical equipment with her and was able to check his vital signs. His oxygen during that time was reportedly 82%, however, despite family encourag ing him to come to the ER, he refused. He slept most of the day and was increasingly confused. Today, he reportedly felt better after sleeping through the night and using his CPAP. However, he was finally agreeable to come in and be seen. He does endorse worsening cough over the past couple of days, productive of yellow-brown sputum, and worsening shortness of breath which is exacerbated by movement and improves with rest. Denies LE edema or orthopnea. Weight has been stable. He has been compliant with his medications since his discharge from the hospital 2 weeks ago for CHF exacerbation and acute hypoxic respiratory failure. He had a two-step prior to d/c and did not require home O2. His ER w/u revealed a subtle developing LLL opacity and he has a 17,000 wbc count with neutrophilic predominance. His VBG was unremarkable. Incidentally he was noted to have a TSH of 0.156 with a normal FT4. His respiratory biofire was negative. He received a Duoneb, placed on O2 at 3L and treated with Me thylprednisolone 125mg IV x1, a dose of Rocephin and Doxycycline and has been referred to the hospital medicine service for admission. Discharge Exam Lungs have some coarse breath sounds but otherwise are clear without wheezes Patient with chronic daily back pain Discharge Plan Discharge Items Patient Disposition: Home - Self-Care Reason For Visit: LLL PNA Discharge Diagnosis: left lower lobe pneumonia low oxygen level Activity: Resume your previous activity Non-emergency contact: Primary Care Provider Call non-emergency contact if: your symptoms worsen Follow-up/Referrals: Dea Waldron PA-C [Primary Care Provider] - (Office will call patient with an appointment date and time) Diet: Regular Addtl Attending Provider Instructions: please complete your antibiotics and steroids at home be sure to follow up with your primary care provider within a week Pending Studies at Discharge: No Stand-Alone Forms: [facility] [employer], Smoking Cessation Medications and DC Order Prescriptions: New levofloxacin 750 mg tablet 750 mg PO DAILY 5 Days Qty: 5 0RF prednisone 20 mg tablet 40 mg PO DAILY Qty: 6 0RF Continued oxybutynin chloride 5 mg tablet 5 mg PO BID Qty: 60 4RF thiamine HCl (vitamin B1) [Vitamin B-1] 100 mg tablet 300 mg PO BID lidocaine 5 % adhesive patch,medicated 1 patch topical DAILY Patient Comments: 12 hrs on and 12 hrs off Rx Instructions: leave on most painful area for up to 12 hrs naltrexone 50 mg tablet 50 mg PO HS multivitamin Tablet 1 tab PO QAM montelukast 10 mg Tablet 10 mg PO DAILY loratadine [Claritin] 10 mg Tablet 10 mg PO DAILY PRN (Reason: allergies) omeprazole 20 mg Tablet,Delayed Release (Dr/Ec) 40 mg PO QAM coenzyme Q10 400 mg Capsule 400 mg PO QAM omega 4-eii-vtd-fish oil [Fish Oil] 1,000 (120-180) mg Capsule 1,400 mg PO QID Qty: 0 ezetimibe [Zetia] 10 mg Tablet 10 mg PO DAILY Qty: 0 0RF albuterol sulfate 90 mcg/actuation Hfa Aerosol Inhaler 2 inh INHALATION DAILY PRN (Reason: Shortness Of Breath Or Wheezing) clotrimazole 1 % Cream 1 applic TOPICAL BID PRN (Reason: Rash) fluticasone propion-salmeterol [Wixela Inhub] 500-50 mcg/dose Blister With Device 1 inh INHALATION BID nifedipine 30 mg tablet extended release 24hr 30 mg PO QAM cholecalciferol (vitamin D3) 50 mcg (2,000 unit) capsule 50 mcg PO QAM potassium chloride 10 mEq tablet extended release 10 meq PO QAM aspirin 81 mg Tablet,Delayed Release (Dr/Ec) 81 mg PO QAM magnesium 250 mg Tablet 250 mg PO DAILY salicylic acid 3 % Shampoo 1 ea topical DAILY hydrocortisone 2.5 % Cream 1 applic TOPICAL DAILY PRN (Reason: Psoriasis) terazosin 10 mg Capsule 10 mg PO HS vitamin E 268 mg (400 unit) Capsule 268 mg PO DAILY clindamycin phosphate 1 % Solution 1 applic TOPICAL BID PRN (Reason: Breakouts) pregabalin 225 mg Capsule 225 mg PO BID Eucerin Cream 1 applic TOPICAL DAILY PRN (Reason: Dry Skin) selenium sulfide 2.5 % Lotion 1 applic TOPICAL Q OTHER DAY topiramate 25 mg tablet 0 mg PO BID Rx Instructions: Take 25mg by mouth BID (currently listed as Active/Suspended on med list from [facility]) Gemtesa 75 mg tablet 75 mg PO DAILY Rx Instructions: Last filled 03/28/24 x30 day supply. Original Directions: 75mg by mouth daily carvedilol 12.5 mg Tablet 12.5 mg PO BIDM Qty: 60 0RF bumetanide 1 mg Tablet 1 mg PO QAM Qty: 30 0RF sennosides [Senokot] 8.6 mg Tablet 17.2 mg PO HS PRN (Reason: constipation) Qty: 14 0RF Rx Instructions: Available [id number] Discharge Orders: Discharge Order (Routine); Ordered 09/27/24 Ordered By: Guanakito Parkinson/Other Patient Handouts: When You Have Pneumonia, Infec Common Resp Prevention Admission Data Admit Date/Time: 09/24/24 16:50 Attending Provider: Guanakito Schmitz Admit Provider: Guanakito Schmitz Primary Care Provider: Dea Waldron Other Providers: Guanakito Schmitz; [facility] Other Interventions: Discharge Summary Assessment (RN) Last Done: 09/27/24 13:30 Hospital Stay Data Consultations 09/24/24 15:51 ED Decision to Admit Stat Diagnostic Imagining Performed 09/24/24 13:51 CT head/brain wo con Stat Pending Results Patient Have Any Pending Studies at Discharge: No Discharge Instructions Given to Patient (Per Discharging Provider) please complete your antibiotics and steroids at home be sure to follow up with your primary care provider within a week Total Time Total Time Spent Total Time Spent (In Minutes): It required greater than 30 minutes to prepare this patient for discharge. Coding Level of Care Code 38085 INP/OBS DISCH >30 MIN Diagnoses Hospital-acquired pneumonia J18.9; Y95 Chronic diastolic CHF (congestive heart failure) I50.32 Prostate cancer C61
== END 2024-09-27 14:11 | disposition home or self-care (01) | DRG 193 ==
LOC: ED 12:56 → EDINP 16:50 → SUATTDRO 16:50 → 3W 09-25 14:37

== ENCOUNTER 2024-12-27 21:21 | Inpatient (IN) ==
[2024-12-27 23:28] LABS: Basophils # (auto) 0.08 K/uL (0.00-0.20); Basophils % (auto) 0.6 %; Eosinophils # (auto) 0.53 K/uL (0.00-0.50); Eosinophils % (auto) 3.7 %; Hematocrit (blood only) 44.3 % (42.0-52.0); Hemoglobin 14.9 g/dl (14.0-18.0); Immature Granulocytes # (auto) 0.06 K/uL (0.01-0.20); Immature Granulocytes % (auto) 0.4 %; Lymphocytes % (auto) 8.3 %; Mean Corpuscular Hemoglobin 29.5 pg (25.0-34.0); Mean Corpuscular Hgb Conc 33.6 g/dL (32.0-36.0); Mean Corpuscular Volume 87.7 fL (80.0-100.0); Mean Platelet Volume 11.5 fL (9.4-12.4); Monocytes # (auto) 1.31 K/uL (0.11-0.59); Monocytes % (auto) 9.1 %; Neutrophils # (auto) 11.23 K/uL (1.40-6.50); Neutrophils % (auto) 77.9 %; Platelet Count 219 K/uL (130-400); RDW Coefficient of Variation 15.9 % (11.5-14.5); RDW Standard Deviation 51.5 fL (36.4-46.3); Red Blood Count 5.05 M/uL (4.70-6.10); White Blood Count 14.41 K/ul (4.8-10.8)
[2024-12-27 23:29] LABS: Albumin Globulin Ratio 1.5 (0.9-2); Albumin Level 4.1 gm/dl (3.4-5.0); BUN Creatinine Ratio 15.7 (10-20); Bilirubin,Total 0.8 mg/dl (0.2-1.0); Calcium 9.1 mg/dl (8.6-10.3); Creatinine Clr Calc Pharmacy 61.6 ml/min; Globulin 2.7 gm/dl (2.5-4.0); Magnesium 2.3 mg/dl (1.7-2.4); Potassium 3.7 mmol/L (3.5-5.1); Total Protein 6.8 gm/dl (6.0-8.3)
[2024-12-27 23:36] LABS: Troponin I High Sensitivity 11.1 pg/ml (0-20)
[2024-12-27 23:45] LABS: Thyroid Stimulating Hormone 0.421 uIu/ml (0.300-4.500)
[2024-12-27 23:48] LABS: Partial Thromboplastin Ratio 1.1; Partial Thromboplastin Time 29 Seconds (21-31)
--- NOTE | 2024-12-28 00:02 | Emergency Department Note ---
Impression & Plan RLL pneumonia, Hypoxia, Generalized weakness ED Provider Note Name: MANDI TILLMAN Jr Age: 79 Sex: Male Arrives Via: Ambulance Informant: Patient, ED Provider: Clem Ross MD Chief Complaint: Weakness Impression: As per impressions above Medical Decision Making: Pleasant 79-year-old gentleman arrives for evaluation of worsening weakness throughout the day to the point where he is essentially unable to to get around the house. On arrival mildly hypoxic though not hypotensive or tachycardic. Chest x-ray does show right lower lobe infiltrate with laboratory results showing elevated white blood cell count. Blood cultures and lactic acid obtained given the hypoxia with severe weakness. Fortunately lactate and procalcitonin are unremarkable. Patient severely allergic to penicillins and thus given IV Levaquin. He is agreeable to hospitalization as is his . Patient is not in significant respiratory distress. I do not feel his finding or symptoms are consistent with PE at this time. Will hold off on CT imaging of the chest. Patient does not have any neurologic deficits other than the generalized weakness. Do not feel this is a central neurologic issue or stroke at this time and would hold off on neuroimaging emergently. Triage/Nursing Notes reviewed by Me External Chart Review by me: I reviewed the diabetes visit from 11/07/2024 to obtain patient's past medical history. Differential:Infection, dehydration, metabolic abnormality, hypo/hyperglycemia, electrolyte disturbance, anemia, hypoxia, cardiac sources, intracerebral event, toxicologic, neurologic, as well as other pathologies. Vital Signs: reviewed and remarkable for no significant abnormalities Interventions: Normal saline bolus IV, Levaquin IV Labs:ED labs Reviewed by me and remarkable for mild elevated white blood cell count Imagin view chest x-ray as per my interpretation reveals a right lower lobe infiltrate. EKG:As per my interpretation. Indication weakness. Sinus rhythm with a first- degree AV block and PACs noted. Rate of 96 bpm QTc of 429. There is no overt ischemia appreciated. EKG is similar to that of October 06, 2024. Cardiac/Tele Monitoring: Cardiac Monitoring: An Order was placed for continuous cardiac monitoring. The monitor shows a rate of 90 with a normal sinus rhythm. Consults:Discussed with Dr. Rivera the [facility]. They will further manage and evaluate patient. Plan: Disposition:Hospitalization. Condition: Good History of Present Illness: 79-year-old gentleman arrives for evaluation of generalized weakness. Patient notes he was not feeling great yesterday. On waking up this morning he felt increasingly weak. Throughout the morning worsening fatigue. He got back in bed and spent most of the day in bed. Admits he did not really eat or drink anything all day. This afternoon when he tried to get up he slid out of bed. He laid on the floor for some time until his came into the room finding him. Patient was too weak to get up and get back in bed. He denies hitting his head or any trauma. He denies any headache, neck pain. Patient notes he has been having an ongoing cough for several weeks to months. Is been a bit junky or recently. Denies any known sick contacts. States currently while sitting in bed he just feels very washed out. Denies any recent fevers. Per his oxygen has been okay at home but EMS noted hypoxia. On arrival to the ER noted to have a O2 sat in the low 90s/upper 80s and placed on 2 L nasal cannula. Past Medical History:See Below Home Medications:See Below Allergies:See Below Vitals:Blood Pressure: 127/83, Pulse 90, RR 22, T 37.3C, O2 93% on 2L NC Physical Exam: GENERAL: Patient is tired appearing and in mild distress. Dry mucous membranes RESPIRATORY: No dyspnea. Crackles throughout the right mid and lower lung roque. Mildly junky cough. CARDIOVASCULAR: Regular rate rhythm.No murmur appreciated. GASTROINTESTINAL: Abdomen soft, non-tender, no peritonitis. EXTREMITIES: Normal motion all extremities, no cyanosis, no edema. NEUROLOGIC: Alert and oriented. No focal neurologic deficits appreciated SKIN: No rash, no jaundice, no diaphoresis. PSYCH: Appropriate GCS: 15 ED Course: Times/Reassessments: Stable sleeping good no distress. Easily awakens and is on board with plan for hospitalization Clem Ross MD Past Med/Surg History Problem List (Updated 12/28/24 @ 03:46 by Quan Rivera MD) Pneumonia Hypoxia Lumbar stenosis with neurogenic claudication Thoracic aortic aneurysm (TAA) Atherogenic dyslipidemia Left ventricular hypertrophy Analgesic rebound headache Tension type headache Lumbar sprain Left lower lobe pneumonia (Acute) Shortness of breath (Acute) Acute hypoxemic respiratory failure (Acute) Chronic diastolic CHF (congestive heart failure) Hospital-acquired pneumonia Hypertensive urgency Acute hypoxemic respiratory failure (Acute) Acute exacerbation of CHF (congestive heart failure) (Acute) Hypertensive emergency (Acute) Daily urinary incontinence Gait apraxia Cerebral ventriculomegaly Rupture of left proximal biceps tendon with repair Subjective memory complaints Prostate cancer Urinary urgency H/O alcohol dependence Elevated CPK Muscle cramp Lumbosacral radiculopathy Idiopathic polyneuropathy Alcohol use disorder Pulmonary nodule Delirium tremens Confusion (Acute) Pneumonia Ataxia Mixed headache Memory loss Hypercholesteremia (Chronic) Bladder neoplasm (Acute) Cervical stenosis of spine (Acute) Arthritis (Chronic) Cognitive complaints (Acute) Common migraine without aura (Chronic) Lumbar radiculopathy (Chronic) Peripheral neuropathy (Chronic) Tremor (Chronic) Type 2 diabetes mellitus (Chronic) diet controlled per pt Migraine Diabetes (Chronic) Medical History (Updated 12/28/24 @ 03:46 by Quan Rivera MD) Asthma Hypertension History of injury of tendon bicep tear w/ repair History of alcohol withdrawal delirium (2020) Hypotension 02/07/25- states had blood pressure medication adjustment early 12/2023 by pcp; bp meds currently back up to previous dosages. History of pneumonia (2020) Tremor Pulmonary nodule monitoring Peripheral neuropathy Migraine Diabetes diet controlled Arthritis History of prostate cancer (2019) History of COVID-19 2021- no hosp; resolved H/O alcohol dependence has approx 1 drink per month now > "quit in February 2022" Osteoarthritis SOB (shortness of breath) on exertion 02/08/24- recent increase in SOB, nausea and weakness with exertion (home bp reading during episode 112/66) Asthma uses rescue inhaler 1-2 times per week Hyperlipidemia Surgical History History of cataract surgery right Status post lung surgery H/O elbow surgery H/O prostatectomy History of bronchoscopy History of colonoscopy History of surgery on arm LEFT ELBOW-TENDON SURG Fusion of spine CERVICAL > "slightly" limited ROM side to side History of lobectomy of lung RIGHT MIDDLE LOBE-BENIGN Family History Father Diabetes Cardiac disorder Unknown Hypertension Mother Cardiac disorder Social History Smoking Status: Former smoker Tobacco Type: Cigarettes Second Hand Exposure: No; Do You Dip or Chew Tobacco: No; Hx Alcohol Use: No Hx Substance Use: No Preferred Language: Surinamese Communication Ability: Effective Molder Hand Required: No Beliefs That Will Affect Care: None Current Living Situation: Spouse Other Information That Helps Us Care for You: No Feels Safe at Home: Yes Safety Concerns: Feels Safe At This Time Assistive Devices: Cane Allergies Allergies Allergy/AdvReac Type Severity Reaction Status Date / Time Penicillins Allergy Severe SWELLING, Verified 11/29/24 13:31 TROUBLE BREATHING fluvastatin [From Lescol] Allergy Unknown Unknown Verified 11/29/24 13:31 lisinopril Allergy Unknown Unknown Verified 11/29/24 13:31 lovastatin Allergy Unknown PT DOESN'T Verified 11/29/24 13:31 REMEMBER REACTION-NAUSEA? simvastatin Allergy Unknown PT DOESN'T Verified 11/29/24 13:31 REMEMBER REACTION-NAUSEA? diazepam AdvReac Mild lethargy Verified 11/29/24 13:31 losartan AdvReac Mild Dizziness Verified 11/29/24 13:31 Iwtmhzy-YZV-QbF Reductase AdvReac Unknown NAUSEA Verified 11/29/24 13:31 Inhibitor [Nuxxejp-Ahg-Glp Reductase Inhibitor] Home Meds Home Medications Medication Instructions Recorded Confirmed coenzyme Q10 400 mg capsule 400 mg PO QAM 03/01/21 12/28/24 loratadine 10 mg tablet (Claritin) 10 mg PO QAM allergies 03/01/21 12/28/24 montelukast 10 mg tablet 10 mg PO HS 03/01/21 12/28/24 multivitamin 1 tab PO QAM 03/01/21 12/28/24 omega 7-ela-uwn-fish oil 1,000 mg 1,400 mg PO BID ##0 03/01/21 12/28/24 (120 mg-180 mg) capsule (Fish Oil) omeprazole 20 mg tablet,delayed 40 mg PO QAM 03/01/21 12/28/24 release naltrexone 50 mg tablet 50 mg PO HS 11/16/21 12/28/24 thiamine HCl (vitamin B1) 100 mg 300 mg PO BID 04/28/23 12/28/24 tablet (Vitamin B-1) lidocaine 5 % topical patch 1 patch topical DAILY PRN Pain 05/02/23 12/28/24 albuterol sulfate 90 mcg/actuation 2 inh inhalation DAILY PRN 12/12/23 12/28/24 aerosol inhaler Shortness Of Breath Or Wheezing clotrimazole 1 % topical cream 1 applic topical BID PRN Rash 12/12/23 12/28/24 fluticasone 500 mcg-salmeterol 50 1 inh inhalation BID 12/12/23 12/28/24 mcg/dose blistr powdr for inhalation (Wixela Inhub) clindamycin phosphate 1 % topical 1 applic topical BID PRN Breakouts 09/05/24 12/28/24 solution hydrocortisone 2.5 % topical cream 1 applic topical DAILY PRN 09/05/24 12/28/24 Psoriasis lanolin alcohols-mineral 1 applic topical DAILY PRN Dry Skin 09/05/24 12/28/24 oil-w.petrolatum-ceresin topical cream (Eucerin topical cream) magnesium 250 mg tablet 250 mg PO QAM 09/05/24 12/28/24 pregabalin 225 mg capsule 225 mg PO BID 09/05/24 12/28/24 salicylic acid 3 % shampoo 1 ea topical DAILY 09/05/24 12/28/24 selenium sulfide 2.5 % lotion 1 applic topical Q OTHER DAY 09/05/24 12/28/24 terazosin 10 mg capsule 10 mg PO HS 09/05/24 12/28/24 topiramate 25 mg tablet 25 mg PO BID Migraine Prevention 09/05/24 12/28/24 vitamin E 268 mg (400 unit) capsule 268 mg PO QAM 09/05/24 12/28/24 cholecalciferol (vitamin D3) 50 50 mcg PO QAM 09/24/24 12/28/24 mcg (2,000 unit) capsule nifedipine 30 mg tablet,extended 30 mg PO QAM 09/24/24 12/28/24 release 24 hr carvedilol 12.5 mg tablet 12.5 mg PO BID 11/07/24 12/28/24 docusate sodium 100 mg capsule 100 mg PO DAILY PRN Constipation 11/07/24 12/28/24 potassium chloride 10 mEq 10 meq PO QAM 11/07/24 12/28/24 tablet,extended release tiotropium 2.5 mcg-olodaterol 2.5 2 puff inhalation QAM 11/07/24 12/28/24 mcg/actuation mist for inhalation baclofen 5 mg tablet 5 mg PO DAILY PRN Muscle Spasm 11/23/24 12/28/24 ezetimibe 10 mg tablet (Zetia) 10 mg PO QAM 12/28/24 12/28/24 Previous Rx's Medication Instructions Recorded oxybutynin chloride 5 mg tablet 5 mg PO BID #60 tabs 07/17/24 bumetanide 1 mg tablet 1 mg PO QAM #30 tabs 09/07/24 sennosides 8.6 mg tablet (Senokot) 17.2 mg (2 x 8.6 mg) PO HS PRN 09/07/24 constipation #14 tabs trospium 20 mg tablet 20 mg PO BID #60 tabs 11/29/24 tirzepatide 5 mg/0.5 mL 5 mg (0.5 mL) subcut Q7D #2 mL 12/20/24 subcutaneous pen injector (Sathish) Results & Data (ED) Vital Signs Vital Signs - 24 hr 12/27/24 21:27 12/27/24 21:28 12/27/24 21:28 Temperature 37.3 C Temperature Source Oral Pulse Rate 96 H 95 H Pulse Rate from SpO2 Sensor Respiratory Rate Blood Pressure 125/81 Blood Pressure Mean 95 Blood Pressure Position Lying Pulse Oximetry 95 Oxygen Delivery Method Room Air Room Air Oxygen Flow Rate Sepsis Recent Fever Within 48 Hours No Sepsis New/Unexplained Change in Mental Status N/A Sepsis Action Taken by Nursing No Action Required 12/27/24 21:34 12/27/24 21:39 12/27/24 22:09 Temperature Temperature Source Pulse Rate 93 H 91 H Pulse Rate from SpO2 Sensor 91 H 91 H Respiratory Rate 15 17 Blood Pressure 125/81 130/84 Blood Pressure Mean 95 99 Blood Pressure Position Pulse Oximetry 91 93 94 Oxygen Delivery Method Room Air Nasal Cannula Nasal Cannula Oxygen Flow Rate 3 3 Sepsis Recent Fever Within 48 Hours Sepsis New/Unexplained Change in Mental Status Sepsis Action Taken by Nursing 12/27/24 22:33 12/27/24 23:30 12/27/24 23:48 Temperature Temperature Source Pulse Rate 93 H 90 Pulse Rate from SpO2 Sensor 93 H Respiratory Rate 22 22 Blood Pressure 126/84 127/83 Blood Pressure Mean 98 97 Blood Pressure Position Pulse Oximetry 92 91 89 L Oxygen Delivery Method Room Air Oxygen Flow Rate Sepsis Recent Fever Within 48 Hours Sepsis New/Unexplained Change in Mental Status Sepsis Action Taken by Nursing 12/27/24 23:48 12/28/24 00:00 12/28/24 01:00 Temperature Temperature Source Pulse Rate 89 86 Pulse Rate from SpO2 Sensor Respiratory Rate 18 20 Blood Pressure 128/83 140/80 Blood Pressure Mean 94 103 Blood Pressure Position Pulse Oximetry 93 95 94 Oxygen Delivery Method Nasal Cannula Nasal Cannula Nasal Cannula Oxygen Flow Rate 2 2 2 Sepsis Recent Fever Within 48 Hours Sepsis New/Unexplained Change in Mental Status Sepsis Action Taken by Nursing 12/28/24 01:22 12/28/24 01:30 Temperature Temperature Source Pulse Rate 121 H 92 H Pulse Rate from SpO2 Sensor Respiratory Rate 20 Blood Pressure 159/96 H Blood Pressure Mean 117 Blood Pressure Position Pulse Oximetry 93 Oxygen Delivery Method Nasal Cannula Oxygen Flow Rate 2 Sepsis Recent Fever Within 48 Hours Sepsis New/Unexplained Change in Mental Status Sepsis Action Taken by Nursing Laboratory Data 12/27/24 21:29 12/27/24 21:29 Lab Results 12/27/24 12/27/24 12/27/24 Range/Units 21:29 23:45 23:50 WBC 14.41 H (4.8-10.8) K/ul RBC 5.05 (4.70-6.10) M/uL Hgb 14.9 (14.0-18.0) g/dl Hct 44.3 (42.0-52.0) % MCV 87.7 (80.0-100.0) fL MCH 29.5 (25.0-34.0) pg MCHC 33.6 (32.0-36.0) g/dL RDW Std Deviation 51.5 H (36.4-46.3) fL RDW Coeff of Roni 15.9 H (11.5-14.5) % Plt Count 219 (130-400) K/uL MPV 11.5 (9.4-12.4) fL Immature Gran % (Auto) 0.4 % Neut % (Auto) 77.9 % Lymph % (Auto) 8.3 % Day % (Auto) 9.1 % Eos % (Auto) 3.7 % Baso % (Auto) 0.6 % Neut # (Auto) 11.23 H (1.40-6.50) K/uL Lymph # (Auto) 1.20 (1.20-3.40) K/uL Day # (Auto) 1.31 H (0.11-0.59) K/uL Eos # (Auto) 0.53 H (0.00-0.50) K/uL Baso # (Auto) 0.08 (0.00-0.20) K/uL Immature Gran # (Auto) 0.06 (0.01-0.20) K/uL PT 11.0 (9.0-12.0) Seconds INR 1.0 (0.9-1.1) APTT 29 (21-31) Seconds PTT Ratio 1.1 Sodium 140 (136-145) mmol/L Potassium 3.7 (3.5-5.1) mmol/L Chloride 105 (98-107) mmol/L Carbon Dioxide 30 (21-32) mmol/L Anion Gap 5 (3-11) BUN 16 (6-23) mg/dl Creatinine 1.02 (0.6-1.4) mg/dl Est Cr Clr Drug Dosing 61.6 ml/min eGFR 75.23 BUN/Creatinine Ratio 15.7 (10-20) Glucose 112 H (70-99(Fasting)) mg/dl Calcium 9.1 (8.6-10.3) mg/dl Magnesium 2.3 (1.7-2.4) mg/dl Total Bilirubin 0.8 (0.2-1.0) mg/dl AST 17 (13-39) U/L ALT 15 (7-52) U/L Alkaline Phosphatase 59 (34-104) U/L Troponin I High Sens 11.1 (0-20) pg/ml Total Protein 6.8 (6.0-8.3) gm/dl Albumin 4.1 (3.4-5.0) gm/dl Globulin 2.7 (2.5-4.0) gm/dl Albumin/Globulin Ratio 1.5 (0.9-2) Procalcitonin 0.08 (0-0.5) ng/ml TSH 0.421 (0.300-4.500) uIu/ml Urine Color Dark Yellow Urine Appearance Clear (Clear) Urine pH 6.5 (4.5-7.5) Ur Specific [place] 1.019 (1.000-1.030) Urine Protein Negative (Negative) Urine Glucose (UA) Negative (Negative) Urine Ketones Trace H (Negative) Urine Blood Negative (Negative) Urine Nitrite Negative (Negative) Urine Bilirubin Negative (Negative) Urine Urobilinogen Negative (Negative) Ur Leukocyte Esterase Negative (Negative) SARS-CoV-2 (PCR) NEGATIVE (Negative) Influenza Type A (PCR) Negative (Neg) Influenza Type B (PCR) Negative (Neg) RSV (RT-PCR) Negative (Neg) Administered Medications Discontinued Medications Sodium Chloride (Nss) 500 mls @ 999 mls/hr IV .Q31M ONE Stop: 12/28/24 00:34 Last Infusion: 12/28/24 01:03 Dose: Infused Documented By: Admin: 12/28/24 00:18 Dose: 999 mls/hr Documented By: ALICE Levofloxacin/Dextrose (Levaquin/D5w) 750 mg in 150 mls @ 100 mls/hr IV NOW STA Stop: 12/28/24 02:42 Last Infusion: 12/28/24 04:07 Dose: Infused Documented By: Admin: 12/28/24 02:05 Dose: 100 mls/hr Documented By: ALICE Imaging Data Radiologist's Impression: Chest X-Ray 12/27/24 23:03 Exam(s): XR CXR 1 VIEW EXAM: XR Chest, 1 View CLINICAL HISTORY: Reason for exam: Weakness. TECHNIQUE: Frontal view of the chest. COMPARISON: 09/27/24 FINDINGS: Lungs: Right basilar opacities, increased from prior. Pleural space: No pleural effusion or pneumothorax. Heart: Stable heart size. Bones/joints: Fixation hardware in the cervical spine. No acute osseous findings. Upper abdomen: Right hemidiaphragm elevation. IMPRESSION: Right basilar opacities, increased from prior. This could represent atelectasis or pneumonia. Electronically signed by: Concepción Morales M.D. 12/28/24 00:52 AM Discharge Plan Visit Data Chief Complaint: Weakness Stated Complaint: Weakness ED Provider: Clem Ross Discharge Problem: RLL pneumonia, Hypoxia, Generalized weakness Patient Disposition: Admitted As Inpatient Discharge Instructions Interventions: ED Discharge Assessment Last Done: 12/28/24 02:19 Discharge Problem: RLL pneumonia Qualifiers: Pneumonia type: due to unspecified organism Qualified Code(s): J18.9 - Pneumonia, unspecified organism
[2024-12-28] MEDS: SODIUM CHLORIDE 0.9% 500 ML IV ONE (00:18)
[2024-12-28 00:19] LABS: Appearance Urine Clear (Clear); Bilirubin Urine Negative (Negative); Blood Urine Negative (Negative); Color Urine Dark Yellow; Glucose Urine UA Negative (Negative); Ketones Urine Trace (Negative); Leukocyte Esterase Urine Negative (Negative); Nitrite Urine Negative (Negative); Protein Urine Negative (Negative); Specific Gravity Urine 1.019 (1.000-1.030); Urobilinogen Urine Negative (Negative); pH Urine 6.5 (4.5-7.5)
[2024-12-28 00:52] LABS: Influenza A virus by PCR Negative (Neg); Influenza B virus by PCR Negative (Neg); RSV by PCR Negative (Neg); SARS CoV2 RNA(COVID-19) Ceph NEGATIVE (Negative)
--- NOTE | 2024-12-28 00:53 | XRay Report ---
Exam(s): XR CXR 1 VIEW EXAM: XR Chest, 1 View CLINICAL HISTORY: Reason for exam: Weakness. TECHNIQUE: Frontal view of the chest. COMPARISON: 09/27/24 FINDINGS: Lungs: Right basilar opacities, increased from prior. Pleural space: No pleural effusion or pneumothorax. Heart: Stable heart size. Bones/joints: Fixation hardware in the cervical spine. No acute osseous findings. Upper abdomen: Right hemidiaphragm elevation. IMPRESSION: Right basilar opacities, increased from prior. This could represent atelectasis or pneumonia. Electronically signed by: Concepción Morales M.D. 12/28/24 00:52 AM
--- NOTE | 2024-12-28 01:41 | History & Physical Report ---
Date of Service December 28, 2024 Assessment & Plan (1) Hypoxia: (2) Pneumonia: (3) Hypertension: (4) Diabetes: (5) Chronic diastolic CHF (congestive heart failure): Plan 79 year old male presents to the ER with generalized weakness #Pneumonia / hypoxia Based on elevated WBC, mild CXR changes and increased cough, Hx of repeated episodes of pneumonia Continue Levaquin Aim O2 sats > 90% Incentive spirometry Flutter valve #Chronic HFpEF Does not appear hypervolemic, continue home dose of carvedilol and bumetanide #COPD No acute exacerbation suspected given lack of wheezing on exam Continue routine inhalers with duonebs PRN Sputum culture #T2DM Insulin for correction factor, if using regularly will need to add basal and carb coverage HbA1C with AM labs #History of alcohol use disorder Continue naltrexone VTE Prophylaxis - Lovenox 40mg SQ daily Diet - heart healthy, low Na, T2DM Disposition - admit to med/surg Admission and Anticipated Discharge Date Admission Date: December 28, 2024 History of Present Illness Chief Complaint: Generalized weakness Primary Care Provider: Dea Wladron PA-C Vahe Jonas is a 79 year old male who presents to the ER with generalized weakness and fatigue for 2 days. On review of systems he also notes coughing up more yellow sputum during this time. No shortness of breath noted but he also hasn't been doing much. No chest pain or wheezing. He got stuck by the side of his bed and was unable to lift himself back up due to his generalized weakness. No change in speech, vision or hearing. Allergies Allergy/AdvReac Type Severity Reaction Status Date / Time Penicillins Allergy Severe SWELLING, Verified 11/29/24 13:31 TROUBLE BREATHING fluvastatin [From Lescol] Allergy Unknown Unknown Verified 11/29/24 13:31 lisinopril Allergy Unknown Unknown Verified 11/29/24 13:31 lovastatin Allergy Unknown PT DOESN'T Verified 11/29/24 13:31 REMEMBER REACTION-NAUSEA? simvastatin Allergy Unknown PT DOESN'T Verified 11/29/24 13:31 REMEMBER REACTION-NAUSEA? diazepam AdvReac Mild lethargy Verified 11/29/24 13:31 losartan AdvReac Mild Dizziness Verified 11/29/24 13:31 Nomytlg-ELP-QpR Reductase AdvReac Unknown NAUSEA Verified 11/29/24 13:31 Inhibitor [Whcfkmu-Iqp-Xgh Reductase Inhibitor] Home Medications Medication Instructions Recorded Confirmed Type coenzyme Q10 400 mg capsule 400 mg PO QAM 03/01/21 12/28/24 History loratadine 10 mg tablet (Claritin) 10 mg PO QAM allergies 03/01/21 12/28/24 History montelukast 10 mg tablet 10 mg PO HS 03/01/21 12/28/24 History multivitamin 1 tab PO QAM 03/01/21 12/28/24 History omega 9-xuh-jnw-fish oil 1,000 mg 1,400 mg PO BID ##0 03/01/21 12/28/24 History (120 mg-180 mg) capsule (Fish Oil) omeprazole 20 mg tablet,delayed 40 mg PO QAM 03/01/21 12/28/24 History release naltrexone 50 mg tablet 50 mg PO HS 11/16/21 12/28/24 History thiamine HCl (vitamin B1) 100 mg 300 mg PO BID 04/28/23 12/28/24 History tablet (Vitamin B-1) lidocaine 5 % topical patch 1 patch topical DAILY PRN Pain 05/02/23 12/28/24 History albuterol sulfate 90 mcg/actuation 2 inh inhalation DAILY PRN 12/12/23 12/28/24 History aerosol inhaler Shortness Of Breath Or Wheezing clotrimazole 1 % topical cream 1 applic topical BID PRN Rash 12/12/23 12/28/24 History fluticasone 500 mcg-salmeterol 50 1 inh inhalation BID 12/12/23 12/28/24 History mcg/dose blistr powdr for inhalation (Wixela Inhub) oxybutynin chloride 5 mg tablet 5 mg PO BID #60 tabs 07/17/24 12/28/24 Rx clindamycin phosphate 1 % topical 1 applic topical BID PRN Breakouts 09/05/24 12/28/24 History solution hydrocortisone 2.5 % topical cream 1 applic topical DAILY PRN 09/05/24 12/28/24 History Psoriasis lanolin alcohols-mineral 1 applic topical DAILY PRN Dry Skin 09/05/24 12/28/24 History oil-w.petrolatum-ceresin topical cream (Eucerin topical cream) magnesium 250 mg tablet 250 mg PO QAM 09/05/24 12/28/24 History pregabalin 225 mg capsule 225 mg PO BID 09/05/24 12/28/24 History salicylic acid 3 % shampoo 1 ea topical DAILY 09/05/24 12/28/24 History selenium sulfide 2.5 % lotion 1 applic topical Q OTHER DAY 09/05/24 12/28/24 History terazosin 10 mg capsule 10 mg PO HS 09/05/24 12/28/24 History topiramate 25 mg tablet 25 mg PO BID Migraine Prevention 09/05/24 12/28/24 History vitamin E 268 mg (400 unit) capsule 268 mg PO QAM 09/05/24 12/28/24 History bumetanide 1 mg tablet 1 mg PO QAM #30 tabs 09/07/24 12/28/24 Rx sennosides 8.6 mg tablet (Senokot) 17.2 mg (2 x 8.6 mg) PO HS PRN 09/07/2412/28 Rx constipation #14 tabs cholecalciferol (vitamin D3) 50 50 mcg PO QAM 09/24/24 12/28/24 History mcg (2,000 unit) capsule nifedipine 30 mg tablet,extended 30 mg PO QAM 09/24/24 12/28/24 History release 24 hr carvedilol 12.5 mg tablet 12.5 mg PO BID 11/07/24 12/28/24 History docusate sodium 100 mg capsule 100 mg PO DAILY PRN Constipation 11/07/24 12/28/24 History potassium chloride 10 mEq 10 meq PO QAM 11/07/24 12/28/24 History tablet,extended release tiotropium 2.5 mcg-olodaterol 2.5 2 puff inhalation QAM 11/07/24 12/28/24 History mcg/actuation mist for inhalation baclofen 5 mg tablet 5 mg PO DAILY PRN Muscle Spasm 11/23/24 12/28/24 History trospium 20 mg tablet 20 mg PO BID #60 tabs 11/29/24 12/28/24 Rx tirzepatide 5 mg/0.5 mL 5 mg (0.5 mL) subcut Q7D #2 mL 12/20/24 12/28/24 Rx subcutaneous pen injector (Sathish) ezetimibe 10 mg tablet (Zetia) 10 mg PO QAM 12/28/24 12/28/24 History Past Med/Surg History Problem List (Updated 12/28/24 @ 03:46 by Quan Rivera MD) Pneumonia Hypoxia Lumbar stenosis with neurogenic claudication Thoracic aortic aneurysm (TAA) Atherogenic dyslipidemia Left ventricular hypertrophy Analgesic rebound headache Tension type headache Lumbar sprain Left lower lobe pneumonia (Acute) Shortness of breath (Acute) Acute hypoxemic respiratory failure (Acute) Chronic diastolic CHF (congestive heart failure) Hospital-acquired pneumonia Hypertensive urgency Acute hypoxemic respiratory failure (Acute) Acute exacerbation of CHF (congestive heart failure) (Acute) Hypertensive emergency (Acute) Daily urinary incontinence Gait apraxia Cerebral ventriculomegaly Rupture of left proximal biceps tendon with repair Subjective memory complaints Prostate cancer Urinary urgency H/O alcohol dependence Elevated CPK Muscle cramp Lumbosacral radiculopathy Idiopathic polyneuropathy Alcohol use disorder Pulmonary nodule Delirium tremens Confusion (Acute) Pneumonia Ataxia Mixed headache Memory loss Hypercholesteremia (Chronic) Bladder neoplasm (Acute) Cervical stenosis of spine (Acute) Arthritis (Chronic) Cognitive complaints (Acute) Common migraine without aura (Chronic) Lumbar radiculopathy (Chronic) Peripheral neuropathy (Chronic) Tremor (Chronic) Type 2 diabetes mellitus (Chronic) diet controlled per pt Migraine Diabetes (Chronic) Medical History (Updated 12/28/24 @ 03:46 by Quan Rivera MD) Asthma Hypertension History of injury of tendon bicep tear w/ repair History of alcohol withdrawal delirium (2020) Hypotension 02/07/25- states had blood pressure medication adjustment early 12/2023 by pcp; bp meds currently back up to previous dosages. History of pneumonia (2020) Tremor Pulmonary nodule monitoring Peripheral neuropathy Migraine Diabetes diet controlled Arthritis History of prostate cancer (2019) History of COVID-19 2021- no hosp; resolved H/O alcohol dependence has approx 1 drink per month now > "quit in February 2022" Osteoarthritis SOB (shortness of breath) on exertion 02/08/24- recent increase in SOB, nausea and weakness with exertion (home bp reading during episode 112/66) Asthma uses rescue inhaler 1-2 times per week Hyperlipidemia Surgical History History of cataract surgery right Status post lung surgery H/O elbow surgery H/O prostatectomy History of bronchoscopy History of colonoscopy History of surgery on arm LEFT ELBOW-TENDON SURG Fusion of spine CERVICAL > "slightly" limited ROM side to side History of lobectomy of lung RIGHT MIDDLE LOBE-BENIGN Family History Father Diabetes Cardiac disorder Unknown Hypertension Mother Cardiac disorder Social History Smoking Status: Former smoker Tobacco Type: Cigarettes Second Hand Exposure: No; Do You Dip or Chew Tobacco: No; Hx Alcohol Use: No Hx Substance Use: No Preferred Language: [place] Communication Ability: Effective Mud Analysis Supervisor Required: No Beliefs That Will Affect Care: None Current Living Situation: Spouse Other Information That Helps Us Care for You: No Feels Safe at Home: Yes Safety Concerns: Feels Safe At This Time Assistive Devices: Cane Review of Systems Review of Systems: All systems reviewed & are unremarkable except as noted in HPI & below Physical Exam Constitutional: WD/WN, vitals as above ENMT: external ear and nose normal, oropharynx normal Respiratory: normal respiratory effort; no respiratory distress Auscultation: + crackles (bibasal); breath sounds present, no diminished lung sounds, no rales, no rhonchi and no wheezes Cardiovascular: RRR, no murmur, no edema Gastrointestinal (Abdomen): normal bowel sounds, soft, nontender, no hepatosplenomegaly Musculoskeletal: no cyanosis or clubbing, extremities motor strength 5/5 Skin: no rashes, warm and dry Psychiatric: A+Ox3, euthymic affect Results & Data Results & Data Vital Signs (Past 12 Hours) Vital Signs Temp Pulse Resp BP Pulse Ox O2 Del Method O2 Flow Rate 12/28/24 01:22 121 H 12/28/24 01:00 86 20 140/80 94 Nasal Cannula 2 12/28/24 00:00 89 18 128/83 95 Nasal Cannula 2 12/27/24 23:48 93 Nasal Cannula 2 12/27/24 23:48 89 L Room Air 12/27/24 23:30 90 22 127/83 91 12/27/24 22:33 93 H 22 126/84 92 12/27/24 22:09 91 H 17 130/84 94 Nasal Cannula 3 12/27/24 21:39 93 H 15 125/81 93 Nasal Cannula 3 12/27/24 21:34 91 Room Air 12/27/24 21:28 Room Air 12/27/24 21:28 37.3 C 95 H 125/81 95 Room Air 12/27/24 21:27 96 H Laboratory Results Abnormal lab results 12/27/24 12/27/24 Range/Units 21:29 23:45 WBC 14.41 H (4.8-10.8) K/ul RDW Std Deviation 51.5 H (36.4-46.3) fL RDW Coeff of Roni 15.9 H (11.5-14.5) % Neut # (Auto) 11.23 H (1.40-6.50) K/uL [place] # (Auto) 1.31 H (0.11-0.59) K/uL Eos # (Auto) 0.53 H (0.00-0.50) K/uL Glucose 112 H (70-99(Fasting)) mg/dl Urine Ketones Trace H (Negative) Diagnostic Findings XR CXR 1 VIEW EXAM: XR Chest, 1 View CLINICAL HISTORY: Reason for exam: Weakness. TECHNIQUE: Frontal view of the chest. COMPARISON: 09/27/24 FINDINGS: Lungs: Right basilar opacities, increased from prior. Pleural space: No pleural effusion or pneumothorax. Heart: Stable heart size. Bones/joints: Fixation hardware in the cervical spine. No acute osseous findings. Upper abdomen: Right hemidiaphragm elevation. IMPRESSION: Right basilar opacities, increased from prior. This could represent atelectasis or pneumonia. Medications Administered ER medications given: Normal saline 500 mL bolus Levaquin 750 mg IV ECG Rate (beats per minute): 96 Rhythm: normal sinus Findings: + RBBB (Incomplete) and + left axis deviation Comparison ECG Date: from (Oct 06, 2024) Change: no significant change Code Status & VTE Plan Code Status Full VTE Prophylaxis Plan VTE Prophylaxis will be ordered: Yes PG Care Time/CCT Total # of Minutes Spent Total Time Spent with Patient: Total time spent is greater than 50% in coordination of care (as documented) at patient's floor/unit and/or counseling patient: Coding Level of Care Code 12963 INT INP/OBS CARE 3/75MIN Diagnoses Hypoxia R09.02 Pneumonia J18.9 Hypertension I10 Diabetes E11.9 Chronic diastolic CHF (congestive heart failure) I50.32
[2024-12-28] MEDS: levoFLOXacin/D5W 750 MG/150 ML BAG IV STA (02:05)
[2024-12-28] MEDS ORDERED: SENNA 8.6 MG TAB PO PRN (03:18)
[2024-12-28] MEDS ORDERED: BACLOFEN 10 MG TAB PO PRN (03:18)
[2024-12-28] MEDS ORDERED: GLUCAGON FOR INJ 1 MG VIAL SQ PRN (05:18)
[2024-12-28] MEDS ORDERED: GLUCOSE 10 TAB/TUBE PO PRN (05:18)
[2024-12-28] MEDS ORDERED: DEXTROSE 50% 50 ML SYRINGE IV PRN (05:18)
[2024-12-28] MEDS ORDERED: GLUCOSE 40% GEL 15 GM TUBE PO PRN (05:18)
[2024-12-28] MEDS ORDERED: CARBOHYDRATES FOR HYPOGLYCEMIA PO PRN (05:18)
[2024-12-28 08:17] LABS: Basophils # (auto) 0.06 K/uL (0.00-0.20); Basophils % (auto) 0.4 %; Eosinophils # (auto) 0.34 K/uL (0.00-0.50); Eosinophils % (auto) 2.2 %; Hematocrit (blood only) 39.4 % (42.0-52.0); Hemoglobin 13.1 g/dl (14.0-18.0); Immature Granulocytes # (auto) 0.08 K/uL (0.01-0.20); Immature Granulocytes % (auto) 0.5 %; Lymphocytes # (auto) 1.29 K/uL (1.20-3.40); Lymphocytes % (auto) 8.5 %; Mean Corpuscular Hemoglobin 29.3 pg (25.0-34.0); Mean Corpuscular Hgb Conc 33.2 g/dL (32.0-36.0); Mean Corpuscular Volume 88.1 fL (80.0-100.0); Mean Platelet Volume 11.2 fL (9.4-12.4); Monocytes # (auto) 1.43 K/uL (0.11-0.59); Monocytes % (auto) 9.4 %; Neutrophils # (auto) 12.03 K/uL (1.40-6.50); Platelet Count 189 K/uL (130-400); RDW Coefficient of Variation 15.8 % (11.5-14.5); RDW Standard Deviation 50.8 fL (36.4-46.3); Red Blood Count 4.47 M/uL (4.70-6.10); White Blood Count 15.23 K/ul (4.8-10.8)
[2024-12-28 08:19] LABS: Estimated Average Glucose 143 mg/dl; Hemoglobin A1C 6.6 % (4.5-5.6)
[2024-12-28 08:26] LABS: Calcium 8.4 mg/dl (8.6-10.3); Creatinine Clr Calc Pharmacy 70.6 ml/min; Potassium 3.3 mmol/L (3.5-5.1)
[2024-12-28] MEDS: INSULIN ASPART PER UNIT CHARGE SC SCH (08:46)
[2024-12-28] MEDS: POTASSIUM CHLORIDE 10 MEQ TABCR PO SCH (08:49)
[2024-12-28] MEDS: PREGABALIN 75 MG CAP PO SCH (08:49)
[2024-12-28] MEDS: EZETIMIBE 10 MG TAB PO SCH (08:50)
[2024-12-28] MEDS: LORATADINE 10 MG TAB PO SCH (08:50)
[2024-12-28] MEDS: TOPIRAMATE 25 MG TAB PO SCH (08:50)
[2024-12-28] MEDS: ENOXAPARIN INJ 40 MG/0.4 ML SYR SQ SCH (08:50)
[2024-12-28] MEDS: carvediloL 12.5 MG TAB PO SCH (08:51)
[2024-12-28] MEDS: THIAMINE HCL 100 MG TAB PO SCH (08:51)
[2024-12-28] MEDS: MAGNESIUM OXIDE 400 MG TAB PO SCH (08:51)
[2024-12-28] MEDS: NIFEdipine EXTENDED REL 30 MG TABCR PO SCH (08:51)
[2024-12-28] MEDS: PANTOprazole 40 MG TAB PO SCH (08:51)
[2024-12-28] MEDS: BUMETANIDE 1 MG TAB PO SCH (08:51)
[2024-12-28] MEDS: UMECLIDINIUM/VILANTEROL 62.5/25MCG 7 PUFFS/INHALER INH SCH (08:52)
[2024-12-28] MEDS: FLUTICASONE FUROATE 200MCG 14 PUFFS/INHALER INH SCH (08:52)
[2024-12-28] MEDS: OXYBUTYNIN CHLORIDE XL 5 MG TABCR PO SCH (08:52)
[2024-12-28] MEDS ORDERED: oxyBUTYnin chloride 5 MG TAB PO SCH (09:00)
[2024-12-28] MEDS ORDERED: FLUTICASONE/SALMETEROL (ADVAIR) 500/50 INH 14 PUFF INH SCH (09:00)
--- NOTE | 2024-12-28 16:19 | CT Scan Report ---
CT chest without contrast History: Pneumonia. Comparison: None Technique: Helical CT imaging of the chest performed without IV contrast Dose reduction techniques were achieved by using automatic exposure control and/or adjustment of mA and/or kV according to patient size and/or use of iterative reconstruction technique. Findings: Director Medical film demonstrates confluent bibasilar interstitial densities. Lung windows demonstrate bibasilar linear band densities consistent with subsegmental atelectasis. Additional small focal secondary pulmonary lobule consolidative changes right lower lobe. Posterior lateral right upper lobe region of subsegmental reticular and secondary pulmonary lobule consolidative changes are noted. Similar findings to much lesser extent superior segment right lower lobe. Radiopaque staple line posterior mid right hemithorax. There is a 5 mm noncalcified left upper lobe pulmonary nodule. Soft tissue windows demonstrate at least moderate calcified atherosclerotic changes coronary vasculature. Heart size is within normal limits. Trace pericardial effusion. Prominent mediastinal lymph nodes. Largest along the right mid to upper paraesophageal region. This measures 1.6 cm greatest dimension. Calcified atherosclerotic changes thoracic aorta. No aneurysmal dilatation. Further characterization limited on this noncontrast exam. Included upper abdomen demonstrates questionable decompressed ranging Of the gallbladder. This is incompletely evaluated on this exam. Bone windows demonstrate partially included lower posterior cervical spine fusion hardware. Posterior right sixth rib changes likely postsurgical in origin. Remote left rib fractures. Degenerative changes of the spine. Impression: 1. Likely partial resection changes right lung with subsegmental reticular and consolidative opacities involving the posterior right upper lobe most worrisome for infectious or inflammatory pneumonitis. Additional bibasilar subsegmental atelectasis. Recommend short-term follow-up chest x-ray after therapy to document resolution. Correlate with clinical data. 2. Single 5 mm left upper lobe pulmonary nodule. This is indeterminant. Correlate with clinical risk factors. If old studies exist recommend making them available for comparison purposes. Otherwise recommend 6-month noncontrast CT chest follow-up. 3. Calcified atherosclerotic changes coronary vasculature. Correlate with clinical data. 4. Likely partially included pharyngian cap of the gallbladder. This does remain indeterminate as this is incompletely evaluated on this exam. Ultrasound would be helpful for further characterization. Please see above for details. Electronically signed by Srini Cabrera 12-28-2024 4:18 PM
[2024-12-28] MEDS: MONTELUKAST SODIUM 10 MG TABLET PO SCH (20:06)
[2024-12-28] MEDS: TERAZOSIN HCL 5 MG CAP PO SCH (20:07)
[2024-12-28] MEDS: NALTREXONE HCL 50 MG TAB PO SCH (20:07)
[2024-12-29] MEDS: levoFLOXacin/D5W 750 MG/150 ML BAG IV SCH (06:25)
[2024-12-29 07:33] LABS: BUN Creatinine Ratio 13.7 (10-20); C Reactive Protein 12.69 mg/dl (0-0.5); Calcium 8.7 mg/dl (8.6-10.3); Creatinine Clr Calc Pharmacy 66.2 ml/min; Potassium 3.4 mmol/L (3.5-5.1)
[2024-12-29 07:38] LABS: Hematocrit (blood only) 39.4 % (42.0-52.0); Hemoglobin 13.2 g/dl (14.0-18.0); Mean Corpuscular Hemoglobin 29.6 pg (25.0-34.0); Mean Corpuscular Hgb Conc 33.5 g/dL (32.0-36.0); Mean Corpuscular Volume 88.3 fL (80.0-100.0); Mean Platelet Volume 11.4 fL (9.4-12.4); Platelet Count 192 K/uL (130-400); RDW Coefficient of Variation 15.9 % (11.5-14.5); RDW Standard Deviation 51.3 fL (36.4-46.3); Red Blood Count 4.46 M/uL (4.70-6.10); White Blood Count 13.13 K/ul (4.8-10.8)
[2024-12-29] MEDS: ALBUT/IPRATROP 3MG/0.5MG NEB 3 ML VIAL NEB PRN (19:33)
--- NOTE | 2024-12-29 23:02 | Hospitalist Progress Note ---
Date of Service December 29, 2024 Assessment & Plan (1) Hypoxia: (2) Pneumonia: (3) Hypertension: (4) Diabetes: (5) Chronic diastolic CHF (congestive heart failure): Plan 79 year old male presents to the ER with generalized weakness #Pneumonia / hypoxia Based on elevated WBC, mild CXR changes and increased cough, Hx of repeated episodes of pneumonia Continue Levaquin, Aim O2 sats > 90% Incentive spirometry Flutter valve Patient has been improving. concern for aspiration, will have speech do a video swallow WBC is improving. #Chronic HFpEF Does not appear hypervolemic, continue home dose of carvedilol and bumetanide #COPD No acute exacerbation suspected given lack of wheezing on exam Continue routine inhalers with duonebs PRN Sputum culture #T2DM Insulin for correction factor, if using regularly will need to add basal and carb coverage HbA1C with AM labs #History of alcohol use disorder Continue naltrexone VTE Prophylaxis - Lovenox 40mg SQ daily Diet - heart healthy, low Na, T2DM Disposition - admit to med/surg Admission and Anticipated Discharge Date Admission Date: December 28, 2024 Subjective 79 yo male reports no new symptoms. He had generalized muscle pain in the morning but feels better in the afternoon Physical Exam Constitutional: WD/WN, vitals as above ENMT: external ear and nose normal, oropharynx normal Respiratory: Auscultation: + crackles (bibasal); breath sounds present, no diminished lung sounds, no rales, no rhonchi and no wheezes Cardiovascular: RRR, no murmur, no edema Gastrointestinal (Abdomen): normal bowel sounds, soft, nontender, no hepatosplenomegaly Skin: no rashes, warm and dry Psychiatric: A+Ox3, euthymic affect Results & Data Results & Data Vital Signs (Past 12 Hours) Vital Signs Temp Pulse Resp BP Pulse Ox O2 Del Method 12/29/24 19:41 36.5 C 80 16 128/73 90 Room Air 12/29/24 19:33 16 88 L Room Air 12/29/24 19:20 Room Air 12/29/24 13:55 36.4 C L 88 18 137/77 94 Room Air PG Care Time/CCT Total # of Minutes Spent Total Time Spent with Patient: Total time spent is greater than 50% in coordination of care (as documented) at patient's floor/unit and/or counseling patient: Coding Level of Care Code 91146 SUB INP/OBS CARE MIN Diagnoses Hypoxia R09.02 Pneumonia J18.9 Hypertension I10 Diabetes E11.9 Chronic diastolic CHF (congestive heart failure) I50.32
[2024-12-29] MEDS: IBUPROFEN 600 MG TAB PO ONE (23:09)
[2024-12-30 07:10] LABS: Hematocrit (blood only) 36.6 % (42.0-52.0); Hemoglobin 12.3 g/dl (14.0-18.0); Mean Corpuscular Hemoglobin 29.9 pg (25.0-34.0); Mean Corpuscular Hgb Conc 33.6 g/dL (32.0-36.0); Mean Corpuscular Volume 88.8 fL (80.0-100.0); Mean Platelet Volume 11.3 fL (9.4-12.4); Platelet Count 195 K/uL (130-400); RDW Coefficient of Variation 15.6 % (11.5-14.5); RDW Standard Deviation 50.6 fL (36.4-46.3); Red Blood Count 4.12 M/uL (4.70-6.10); White Blood Count 10.13 K/ul (4.8-10.8)
[2024-12-30 07:31] LABS: BUN Creatinine Ratio 14.6 (10-20); Calcium 8.6 mg/dl (8.6-10.3); Creatinine Clr Calc Pharmacy 76.7 ml/min; Potassium 3.3 mmol/L (3.5-5.1)
[2024-12-30] MEDS: ACETAMINOPHEN 325 MG TAB PO PRN (21:22)
--- NOTE | 2024-12-30 22:30 | Hospitalist Progress Note ---
Date of Service December 30, 2024 Assessment & Plan (1) Hypoxia: (2) Pneumonia: (3) Hypertension: (4) Diabetes: (5) Chronic diastolic CHF (congestive heart failure): Plan 79 year old male presents to the ER with generalized weakness #Pneumonia / hypoxia Based on elevated WBC, mild CXR changes and increased cough, Hx of repeated episodes of pneumonia Continue Levaquin, Aim O2 sats > 90% Incentive spirometry Flutter valve Patient has been improving. concern for aspiration, will have speech do a video swallow. This will be planned as an outpatinet. WBC is improving. Not back at baseline. WIll keep patient one more day. #Chronic HFpEF Does not appear hypervolemic, continue home dose of carvedilol and bumetanide #COPD No acute exacerbation suspected given lack of wheezing on exam Continue routine inhalers with duonebs PRN Sputum culture #T2DM Insulin for correction factor, if using regularly will need to add basal and carb coverage HbA1C with AM labs #History of alcohol use disorder Continue naltrexone VTE Prophylaxis - Lovenox 40mg SQ daily Diet - heart healthy, low Na, T2DM Disposition - admit to med/surg Admission and Anticipated Discharge Date Admission Date: December 28, 2024 Subjective 79 yo male reports no new symptoms. Physical Exam Constitutional: WD/WN, vitals as above ENMT: external ear and nose normal, oropharynx normal Respiratory: Auscultation: + crackles (bibasal); breath sounds present, no diminished lung sounds, no rales, no rhonchi and no wheezes Cardiovascular: RRR, no murmur, no edema Gastrointestinal (Abdomen): normal bowel sounds, soft, nontender, no hepatosplenomegaly Skin: no rashes, warm and dry Psychiatric: A+Ox3, euthymic affect Results & Data Results & Data Vital Signs (Past 12 Hours) Vital Signs Temp Pulse Resp BP Pulse Ox O2 Del Method 12/30/24 21:11 36.5 C 67 20 152/83 H 93 Room Air 12/30/24 19:50 Room Air PG Care Time/CCT Total # of Minutes Spent Total Time Spent with Patient: Total time spent is greater than 50% in coordination of care (as documented) at patient's floor/unit and/or counseling patient: Coding Level of Care Code 78882 SUB INP/OBS CARE 2/35MIN Diagnoses Hypoxia R09.02 Pneumonia J18.9 Hypertension I10 Diabetes E11.9 Chronic diastolic CHF (congestive heart failure) I50.32
[2024-12-31 08:07] VITALS: RESP 16
--- NOTE | 2024-12-31 10:07 | Discharge Summary ---
Discharge Summary Date of Service December 31, 2024 Principal Dx & Hospital Course #1 = Principal Diagnosis (1) Hypoxia: (2) Pneumonia: (3) Hypertension: (4) Diabetes: (5) Chronic diastolic CHF (congestive heart failure): Plan 79 year old male presents to the ER with generalized weakness #Pneumonia / hypoxia Based on elevated WBC, mild CXR changes and increased cough, Hx of repeated episodes of pneumonia Continue Levaquin, Aim O2 sats > 90% Incentive spirometry Flutter valve Patient has been improving. concern for aspiration, will have speech do a video swallow. This will be planned as an outpatinet. WBC is improving. Not back at baseline. WIll keep patient one more day. #Chronic HFpEF Does not appear hypervolemic, continue home dose of carvedilol and bumetanide #COPD No acute exacerbation suspected given lack of wheezing on exam Continue routine inhalers with duonebs PRN Sputum culture #T2DM Insulin for correction factor, if using regularly will need to add basal and carb coverage HbA1C with AM labs #History of alcohol use disorder Continue naltrexone VTE Prophylaxis - Lovenox 40mg SQ daily Diet - heart healthy, low Na, T2DM Disposition - admit to med/surg Admission HPI Per Admitting Provider Vahe Jonas is a 79 year old male who presents to the ER with generalized weakness and fatigue for 2 days. On review of systems he also notes coughing up more yellow sputum during this time. No shortness of breath noted but he also hasn't been doing much. No chest pain or wheezing. He got stuck by the side of his bed and was unable to lift himself back up due to his generalized weakness. No change in speech, vision or hearing. Discharge Exam Constitutional WD/WN, vitals as above ENMT external ear and nose normal, oropharynx normal Respiratory Auscultation: + crackles (bibasal); breath sounds present, no diminished lung sounds, no rales, no rhonchi and no wheezes Cardiovascular RRR, no murmur, no edema Gastrointestinal (Abdomen) normal bowel sounds, soft, nontender, no hepatosplenomegaly Skin no rashes, warm and dry Psychiatric A+Ox3, euthymic affect Discharge Plan Discharge Items Patient Disposition: Home - Self-Care Reason For Visit: HYPOXIA, PNUEMONIA Discharge Diagnosis: Pneumonia Activity: Resume your previous activity Non-emergency contact: Primary Care Provider Call non-emergency contact if: you have any medication questions Follow-up/Referrals: Dea Waldron PA-C [Primary Care Provider] - ([facility] PATIENT WILL NEED TO CALL TO SCHEDULE A HOSPITAL FOLLOW UP IN 7-10 DAYS AFTER DISCHARGE.) Diet: Regular Addtl Attending Provider Instructions: Good morning Mr. Jonas, You were diagnosed with pneumonia. Thankfully you responded to the treatment that was given. We treated you with levaquin for 4 days, and we recommend to continue for another 3 days. We will help set up a followup with the speech therapist to get a video swallow evaluation due to your coughing when you drink liquids. We will recommend a close followup with your PCP in 1-2 weeks. It was a pleasure. Kindest regards, Jimy Garrett Pending Studies at Discharge: No Stand-Alone Forms: My Clout, Smoking Cessation Medications and DC Order Prescriptions: New levofloxacin 750 mg tablet 750 mg PO DAILY Qty: 3 0RF Rx Instructions: FIrst dose AM of 01/01 Continued baclofen 5 mg tablet 5 mg PO DAILY PRN (Reason: Muscle Spasm) oxybutynin chloride 5 mg tablet 5 mg PO BID Qty: 60 4RF Hold Instructions: trial of tropsium Mounjaro 5 mg/0.5 mL pen injector 5 mg subcut Q7D Qty: 2 5RF Rx Instructions: prior approved from 09/07/24-11/07/25Thursdays thiamine HCl (vitamin B1) [Vitamin B-1] 100 mg tablet 300 mg PO BID lidocaine 5 % adhesive patch,medicated 1 patch topical DAILY PRN (Reason: Pain) Patient Comments: 12 hrs on and 12 hrs off Rx Instructions: leave on most painful area for up to 12 hrs naltrexone 50 mg tablet 50 mg PO HS carvedilol 12.5 mg tablet 12.5 mg PO BID docusate sodium 100 mg capsule 100 mg PO DAILY PRN (Reason: Constipation) tiotropium-olodaterol 2.5-2.5 mcg/actuation mist 2 puff inhalation QAM trospium 20 mg tablet 20 mg PO BID Qty: 60 2RF Rx Instructions: administer on an empty stomach multivitamin Tablet 1 tab PO QAM montelukast 10 mg Tablet 10 mg PO HS loratadine [Claritin] 10 mg Tablet 10 mg PO QAM omeprazole 20 mg Tablet,Delayed Release (Dr/Ec) 40 mg PO QAM coenzyme Q10 400 mg Capsule 400 mg PO QAM omega [id number] oil [Fish Oil] 1,000 (120-180) mg Capsule 1,400 mg PO BID Qty: 0 albuterol sulfate 90 mcg/actuation Hfa Aerosol Inhaler 2 inh INHALATION DAILY PRN (Reason: Shortness Of Breath Or Wheezing) clotrimazole 1 % Cream 1 applic TOPICAL BID PRN (Reason: Rash) fluticasone propion-salmeterol [Wixela Inhub] 500-50 mcg/dose Blister With Device 1 inh INHALATION BID nifedipine 30 mg tablet extended release 24hr 30 mg PO QAM cholecalciferol (vitamin D3) 50 mcg (2,000 unit) capsule 50 mcg PO QAM potassium chloride 10 mEq tablet extended release 10 meq PO QAM ezetimibe [Zetia] 10 mg tablet 10 mg PO QAM magnesium 250 mg Tablet 250 mg PO QAM salicylic acid 3 % Shampoo 1 ea topical DAILY hydrocortisone 2.5 % Cream 1 applic TOPICAL DAILY PRN (Reason: Psoriasis) terazosin 10 mg Capsule 10 mg PO HS vitamin E 268 mg (400 unit) Capsule 268 mg PO QAM clindamycin phosphate 1 % Solution 1 applic TOPICAL BID PRN (Reason: Breakouts) pregabalin 225 mg Capsule 225 mg PO BID Eucerin Cream 1 applic TOPICAL DAILY PRN (Reason: Dry Skin) selenium sulfide 2.5 % Lotion 1 applic TOPICAL Q OTHER DAY topiramate 25 mg tablet 25 mg PO BID Rx Instructions: Take 25mg by mouth BID (currently listed as Active/Suspended on med list from [facility]) bumetanide 1 mg Tablet 1 mg PO QAM Qty: 30 0RF sennosides [Senokot] 8.6 mg Tablet 17.2 mg PO HS PRN (Reason: constipation) Qty: 14 0RF Rx Instructions: Available [id number] Discharge Orders: Discharge Order (Routine); Ordered 12/31/24 Ordered By: Jimy Garrett Admission Data Admit Date/Time: 12/28/24 01:36 Attending Provider: Jimy Garrett Admit Provider: Quan Rivera Primary Care Provider: Dea Waldron Other Providers: [facility] Hospital Stay Data Diagnostic Imagining Performed 12/28/24 CT chest diagnostic wo con Routine Pending Results Patient Have Any Pending Studies at Discharge: No Discharge Instructions Given to Patient (Per Discharging Provider) Good morning Mr. Jonas, You were diagnosed with pneumonia. Thankfully you responded to the treatment that was given. We treated you with levaquin for 4 days, and we recommend to continue for another 3 days. We will help set up a followup with the speech therapist to get a video swallow evaluation due to your coughing when you drink liquids. We will recommend a close followup with your PCP in 1-2 weeks. It was a pleasure. Kindest regards, Jimy Garrett Coding Diagnoses Hypoxia R09.02 Pneumonia J18.9 Hypertension I10 Diabetes E11.9 Chronic diastolic CHF (congestive heart failure) I50.32
[2024-12-31] MEDS: levoFLOXacin 250 MG TABLET PO ONE (10:54)
[2024-12-31 11:22] VITALS: BP 144/92; PULSE 78; TEMP 98.2; O2SAT 93
== END 2024-12-31 15:46 | disposition home or self-care (01) | DRG 194 ==
LOC: ED 21:21 → SUATTDRO 12-28 01:36 → 3N 12-28 01:36

== ENCOUNTER 2025-01-26 23:04 | Inpatient (IN) ==
[2025-01-27 00:17] LABS: Appearance Urine Clear (Clear); Bilirubin Urine Negative (Negative); Blood Urine Negative (Negative); Color Urine Yellow; Glucose Urine UA Negative (Negative); Ketones Urine Negative (Negative); Nitrite Urine Negative (Negative); Protein Urine Negative (Negative); Specific Gravity Urine 1.006 (1.000-1.030); Urobilinogen Urine Negative (Negative); pH Urine 7.5 (4.5-7.5)
[2025-01-27 00:18] LABS: Leukocyte Esterase Urine Negative (Negative)
[2025-01-27 00:23] LABS: Basophils # (auto) 0.08 K/uL (0.00-0.20); Basophils % (auto) 0.4 %; Eosinophils % (auto) 2.1 %; Hematocrit (blood only) 43.7 % (42.0-52.0); Hemoglobin 14.6 g/dl (14.0-18.0); Immature Granulocytes % (auto) 0.5 %; Lymphocytes % (auto) 10.4 %; Mean Corpuscular Hemoglobin 29.3 pg (25.0-34.0); Mean Corpuscular Hgb Conc 33.4 g/dL (32.0-36.0); Mean Corpuscular Volume 87.8 fL (80.0-100.0); Mean Platelet Volume 11.8 fL (9.4-12.4); Monocytes % (auto) 9.3 %; Neutrophils # (auto) 14.91 K/uL (1.40-6.50); Neutrophils % (auto) 77.3 %; Platelet Count 193 K/uL (130-400); RDW Coefficient of Variation 15.7 % (11.5-14.5); RDW Standard Deviation 50.3 fL (36.4-46.3); Red Blood Count 4.98 M/uL (4.70-6.10); White Blood Count 19.29 K/ul (4.8-10.8)
[2025-01-27 00:31] LABS: Albumin Globulin Ratio 1.3 (0.9-2); BUN Creatinine Ratio 12.9 (10-20); Bilirubin,Total 0.7 mg/dl (0.2-1.0); Creatinine Clr Calc Pharmacy 62.2 ml/min; Potassium 3.4 mmol/L (3.5-5.1)
--- NOTE | 2025-01-27 01:02 | Emergency Department Note ---
Impression & Plan Hypoxia, Pneumonia admit to the [facility] ED Provider Note NAME: MANDI TILLMAN Jr AGE: 79 SEX: Male INFORMANT: Patient And his ED PROVIDER(S): Jeannette Dupont DO CHIEF COMPLAINT: increased heart rate, dizziness and weakness PLAN: Disposition: admit to the [facility] MEDICAL DECISION MAKING: This is a 79-year-old male patient who presents to the emergency department as he had increasing dizziness and weakness since earlier this morning. Patient's family took vital signs earlier today and found that his heart rate was elevated at rest and O2 saturation was low. he was placed on supplemental oxygen. Patient feels as if his chest is full of liquid. He has had increased cough and wheezing. Upper respiratory bio fire testing was negative. The patient had moderate leukocytosis with a white count of 19.2. H&H were stable. BNP and troponin were negative. Lactate and procalcitonin were negative. Urinalysis was unremarkable. Chest x-ray showed evidence of a right sided perihilar infiltrate concerning for pneumonia. Blood cultures were obtained and the patient was started on IV Levaquin as he has an allergy to penicillin. [facility]. Care/management discussed with: manager therapy [facility] Triage Nursing notes: reviewed and agree With them. Vital Signs: reviewed and remarkable for hypoxia Additional History obtained from: the patient's is at the bedside Chronic Medical/Social Conditions affecting care: history of pneumonia and CHF Prior/ Outside/ External records reviewed: previous inpatient hospitalization Differential Diagnosis: recurrent pneumonia, CHF, bronchitis, sepsis, URI, viral illness Diagnostics, independently interpreted by me: ECG: Sinus tachycardia with first-degree AV block at a rate of 113. There is a incomplete right bundle branch block. Repeat ECG: Normal sinus rhythm at a rate of 84 with first-degree AV block with incomplete right bundle branch block and no signs of ischemia Cardiac Monitoring: Sinus tachycardia at a rate of 115 Imaging studies: portable chest x-ray: right-sided perihilar infiltrate as per my independent interpretation HPI: 79 year old Male arrives for evaluation of weakness and dizziness.Patient's family took vital signs earlier today and found that his heart rate was elevated at rest and O2 saturation was low. he was placed on supplemental oxygen. Patient feels as if his chest is full of liquid. He has had increased cough and wheezing.. PAST MEDICAL HISTORY: See Below, PAST SURGICAL HISTORY: See Below, SOCIAL HISTORY: See Below, HOME MEDICATIONS: See list ALLERGIES: see list VITALS: See Below PHYSICAL EXAMINATION: HEENT: Head - normocephalic and atraumatic Pupils are equal, round, and reactive to light. Extraocular eye muscles are intact, and sclera are anicteric. Nose - moist nasal mucosa without discharge. Mouth - moist buccal mucosa. Oropharynx is nonerythematous and there is no tonsillar exudate or edema noted. Neck: Supple; no JVDOr nuchal rigidity. Heart: Regular rate and rhythm. There is a normal S1 and S2 with no murmurs, clicks, or gallops appreciated. Lungs: Clear to auscultation bilaterally with no wheezes, rales, or rhonchi. Abdomen: Soft, completely nontender, nondistended, with good bowel sounds. There are no palpable pulsatile masses or hepatosplenomegaly. There is no guarding, rigidity, or rebound noted. Extremities: No evidence of cyanosis, clubbing, or edema. There are easily palpable peripheral pulses. Skin: warm and dry with good turgor and no rashes. emergency department treatment: ekg monitor, supplemental oxygen, IV Levaquin Emergency department course: The patient was evaluated in room A-9. A complete history and physical was performed. Previous electronic medical records were reviewed. Laboratory studies were drawn as above. Patient was placed on supplemental oxygen as he was hypoxic on room air. A septic protocol was performed. Upper respiratory bio fire testing was obtained and was negative. Chest x-ray showed evidence of a perihilar infiltrate. Patient was started on IV Levaquin secondary to penicillin allergy. I have personally spent greater than 30 minutes of critical care time in the direct management of this patient. This includes bedside care, interpretation of diagnostic studies, and testing, discussion with consultants, patient, and family members, and other required patient management activities. This 30 minutes is in excess of all separately billable procedures. Past Med/Surg History Problem List (Updated 01/28/25 @ 06:23 by Jeannette Dupont DO) Pneumonia (Acute) Hypoxia (Acute) Dysphagia COPD with emphysema Multifocal pneumonia COPD (chronic obstructive pulmonary disease) Ambulatory dysfunction Pneumonia Hypoxia Lumbar stenosis with neurogenic claudication Thoracic aortic aneurysm (TAA) Atherogenic dyslipidemia Left ventricular hypertrophy Analgesic rebound headache Tension type headache Lumbar sprain Left lower lobe pneumonia (Acute) Shortness of breath (Acute) Acute hypoxemic respiratory failure (Acute) Chronic diastolic CHF (congestive heart failure) Hospital-acquired pneumonia Hypertensive urgency Acute hypoxemic respiratory failure (Acute) Acute exacerbation of CHF (congestive heart failure) (Acute) Hypertensive emergency (Acute) Daily urinary incontinence Gait apraxia Cerebral ventriculomegaly Rupture of left proximal biceps tendon with repair Subjective memory complaints Prostate cancer Urinary urgency H/O alcohol dependence Elevated CPK Muscle cramp Lumbosacral radiculopathy Idiopathic polyneuropathy Alcohol use disorder Pulmonary nodule Delirium tremens Confusion (Acute) Pneumonia Ataxia Mixed headache Memory loss Hypercholesteremia (Chronic) Bladder neoplasm (Acute) Cervical stenosis of spine (Acute) Arthritis (Chronic) Cognitive complaints (Acute) Common migraine without aura (Chronic) Lumbar radiculopathy (Chronic) Peripheral neuropathy (Chronic) Tremor (Chronic) Type 2 diabetes mellitus (Chronic) diet controlled per pt Migraine Diabetes (Chronic) Medical History (Updated 01/28/25 @ 06:23 by Jeannette Dupont DO) Asthma Hypertension History of injury of tendon bicep tear w/ repair History of alcohol withdrawal delirium (2020) Hypotension 02/07/25- states had blood pressure medication adjustment early 12/2023 by pcp; bp meds currently back up to previous dosages. History of pneumonia (2020) Tremor Pulmonary nodule monitoring Peripheral neuropathy Migraine Diabetes diet controlled Arthritis History of prostate cancer (2019) History of COVID-19 2021- no hosp; resolved H/O alcohol dependence has approx 1 drink per month now > "quit in February 2022" Osteoarthritis SOB (shortness of breath) on exertion 02/08/24- recent increase in SOB, nausea and weakness with exertion (home bp reading during episode 112/66) Asthma uses rescue inhaler 1-2 times per week Hyperlipidemia Surgical History History of cataract surgery right Status post lung surgery H/O elbow surgery H/O prostatectomy History of bronchoscopy History of colonoscopy History of surgery on arm LEFT ELBOW-TENDON SURG Fusion of spine CERVICAL > "slightly" limited ROM side to side History of lobectomy of lung RIGHT MIDDLE LOBE-BENIGN Family History Father Diabetes Cardiac disorder Unknown Hypertension Mother Cardiac disorder Social History Smoking Status: Former smoker Tobacco Type: Cigarettes Second Hand Exposure: No; Do You Dip or Chew Tobacco: No; Hx Alcohol Use: No Hx Substance Use: No Preferred Language: Turkmen Communication Ability: Effective Orthotic Finish Grinding Technician Required: No Beliefs That Will Affect Care: None Current Living Situation: Spouse Feels Safe at Home: Yes Assistive Devices: Cane Allergies Allergies Allergy/AdvReac Type Severity Reaction Status Date / Time Penicillins Allergy Severe SWELLING, Verified 01/27/25 09:04 TROUBLE BREATHING fluvastatin [From Lescol] Allergy Unknown Unknown Verified 01/27/25 09:04 lisinopril Allergy Unknown Unknown Verified 01/27/25 09:04 lovastatin Allergy Unknown PT DOESN'T Verified 01/27/25 09:04 REMEMBER REACTION-NAUSEA? simvastatin Allergy Unknown PT DOESN'T Verified 01/27/25 09:04 REMEMBER REACTION-NAUSEA? diazepam AdvReac Mild lethargy Verified 01/27/25 09:04 losartan AdvReac Mild Dizziness Verified 01/27/25 09:04 [id number]-SoX Reductase AdvReac Unknown NAUSEA Verified 01/27/25 09:04 Inhibitor [Wtjxuvx-Nwz-Rjo Reductase Inhibitor] Home Meds Home Medications Medication Instructions Recorded Confirmed coenzyme Q10 400 mg capsule 400 mg PO QAM 03/01/21 01/27/25 loratadine 10 mg tablet (Claritin) 10 mg PO QAM allergies 03/01/21 01/27/25 montelukast 10 mg tablet 10 mg PO HS 03/01/21 01/27/25 multivitamin 1 tab PO QAM 03/01/21 01/27/25 omeprazole 20 mg tablet,delayed 40 mg PO QAM 03/01/21 01/27/25 release naltrexone 50 mg tablet 50 mg PO HS 11/16/21 01/27/25 thiamine HCl (vitamin B1) 100 mg 300 mg PO BID 04/28/23 01/27/25 tablet (Vitamin B-1) lidocaine 5 % topical patch 1 patch topical DAILY PRN Pain 05/02/23 01/27/25 clotrimazole 1 % topical cream 1 applic topical BID PRN Rash 12/12/23 01/27/25 fluticasone 500 mcg-salmeterol 50 1 inh inhalation BID 12/12/23 01/27/25 mcg/dose blistr powdr for inhalation (Wixela Inhub) clindamycin phosphate 1 % topical 1 applic topical BID PRN Breakouts 09/05/24 01/27/25 solution pregabalin 225 mg capsule 225 mg PO BID 09/05/24 01/27/25 salicylic acid 3 % shampoo 1 ea topical DAILY 09/05/24 01/27/25 selenium sulfide 2.5 % lotion 1 applic topical Q OTHER DAY 09/05/24 01/27/25 terazosin 10 mg capsule 10 mg PO HS 09/05/24 01/27/25 topiramate 25 mg tablet 25 mg PO BID Migraine Prevention 09/05/24 01/27/25 vitamin E 268 mg (400 unit) capsule 268 mg PO QAM 09/05/24 01/27/25 carvedilol 12.5 mg tablet 6.25 mg PO BID 11/07/24 01/27/25 docusate sodium 100 mg capsule 100 mg PO DAILY PRN Constipation 11/07/24 01/27/25 tiotropium 2.5 mcg-olodaterol 2.5 2 puff inhalation QAM 11/07/24 01/27/25 mcg/actuation mist for inhalation baclofen 5 mg tablet 5 mg PO DAILY PRN Muscle Spasm 11/23/24 01/27/25 ezetimibe 10 mg tablet (Zetia) 10 mg PO QAM 12/28/24 01/27/25 nifedipine 30 mg tablet,extended 30 mg PO DAILY 01/27/25 01/27/25 release 24 hr omega 5-fix-eya-fish oil 900 1 cap PO QID 01/27/25 01/27/25 mg-1,400 mg capsule,delayed release potassium chloride 20 mEq 10 meq PO DAILY 01/27/25 01/27/25 tablet,extended release(part/cryst) Previous Rx's Medication Instructions Recorded bumetanide 1 mg tablet 1 mg PO QAM #30 tabs 09/07/24 sennosides 8.6 mg tablet (Senokot) 17.2 mg (2 x 8.6 mg) PO HS PRN 09/07/24 constipation #14 tabs trospium 20 mg tablet 20 mg PO BID #60 tabs 03/06/25 tirzepatide 5 mg/0.5 mL 5 mg (0.5 mL) subcut Q7D #2 mL 12/20/24 subcutaneous pen injector (Sathish) Results & Data (ED) Vital Signs Vital Signs - 24 hr 01/26/25 23:07 01/26/25 23:22 01/26/25 23:25 Temperature 36.9 C Temperature Source Oral Pulse Rate 97 H Pulse Rate [Apical] 111 H Respiratory Rate 18 16 Respiratory Effort / Characteristics Non-Labored Spontaneous SOB on Exertion Respiratory Depth Normal Respiratory Pattern Regular Regular Blood Pressure 124/77 Blood Pressure [Right Arm] 103/76 Blood Pressure Mean 92 Blood Pressure Mean [Right Arm] 85 Blood Pressure Position Sitting Blood Pressure Position [Right Arm] Lying Pulse Oximetry 90 90 88 L Oxygen Delivery Method Room Air Room Air Room Air Nasal Cannula Oxygen Flow Rate 0 Sepsis Recent Fever Within 48 Hours No Sepsis New/Unexplained Change in Mental Status N/A Sepsis Action Taken by Nursing No Action Required Oxygen Flow Rate - Titration 2 Pulse Oximetry Post Tiitration 92 01/26/25 23:30 01/26/25 23:30 01/27/25 00:00 Temperature Temperature Source Pulse Rate Pulse Rate [Apical] 115 H 111 H Respiratory Rate 18 16 Respiratory Effort / Characteristics Spontaneous SOB on Exertion Spontaneous SOB on Exertion Non-Labored Spontaneous Respiratory Depth Normal Respiratory Pattern Regular Blood Pressure Blood Pressure [Right Arm] 128/70 124/84 Blood Pressure Mean Blood Pressure Mean [Right Arm] 89 97 Blood Pressure Position Blood Pressure Position [Right Arm] Lying Lying Pulse Oximetry 92 95 Oxygen Delivery Method Nasal Cannula Nasal Cannula Nasal Cannula Oxygen Flow Rate 2 2 2 Sepsis Recent Fever Within 48 Hours Sepsis New/Unexplained Change in Mental Status Sepsis Action Taken by Nursing Oxygen Flow Rate - Titration Pulse Oximetry Post Tiitration 01/27/25 00:13 01/27/25 00:31 Temperature Temperature Source Pulse Rate 113 H Pulse Rate [Apical] 82 Respiratory Rate 16 18 Respiratory Effort / Characteristics Non-Labored Spontaneous Respiratory Depth Respiratory Pattern Blood Pressure Blood Pressure [Right Arm] 121/82 Blood Pressure Mean Blood Pressure Mean [Right Arm] 95 Blood Pressure Position Blood Pressure Position [Right Arm] Lying Pulse Oximetry 94 96 Oxygen Delivery Method Nasal Cannula Nasal Cannula Oxygen Flow Rate 2 2 Sepsis Recent Fever Within 48 Hours Sepsis New/Unexplained Change in Mental Status Sepsis Action Taken by Nursing Oxygen Flow Rate - Titration Pulse Oximetry Post Tiitration Laboratory Data 01/27/25 04:50 01/27/25 04:50 Lab Results 01/26/25 01/26/25 01/27/25 Range/Units 23:22 23:50 00:05 WBC 19.29 H (4.8-10.8) K/ul RBC 4.98 (4.70-6.10) M/uL Hgb 14.6 (14.0-18.0) g/dl Hct 43.7 (42.0-52.0) % MCV 87.8 (80.0-100.0) fL MCH 29.3 (25.0-34.0) pg MCHC 33.4 (32.0-36.0) g/dL RDW Std Deviation 50.3 H (36.4-46.3) fL RDW Coeff of Roni 15.7 H (11.5-14.5) % Plt Count 193 (130-400) K/uL MPV 11.8 (9.4-12.4) fL Immature Gran % (Auto) 0.5 % Neut % (Auto) 77.3 % Lymph % (Auto) 10.4 % Perry % (Auto) 9.3 % Eos % (Auto) 2.1 % Baso % (Auto) 0.4 % Neut # (Auto) 14.91 H (1.40-6.50) K/uL Lymph # (Auto) 2.00 (1.20-3.40) K/uL Perry # (Auto) 1.80 H (0.11-0.59) K/uL Eos # (Auto) 0.40 (0.00-0.50) K/uL Baso # (Auto) 0.08 (0.00-0.20) K/uL Immature Gran # (Auto) 0.10 (0.01-0.20) K/uL Sodium 138 (136-145) mmol/L Potassium 3.4 L (3.5-5.1) mmol/L Chloride 104 (98-107) mmol/L Carbon Dioxide 28 (21-32) mmol/L Anion Gap 6 (3-11) BUN 13 (6-23) mg/dl Creatinine 1.01 (0.6-1.4) mg/dl Est Cr Clr Drug Dosing 62.2 ml/min eGFR 76.12 BUN/Creatinine Ratio 12.9 (10-20) Glucose 87 (70-99(Fasting)) mg/dl Lactate (0.4-2.0) mmol/L Calcium 9.0 (8.6-10.3) mg/dl Magnesium (1.7-2.4) mg/dl Total Bilirubin 0.7 (0.2-1.0) mg/dl AST 19 (13-39) U/L ALT 17 (7-52) U/L Alkaline Phosphatase 49 (34-104) U/L Troponin I High Sens 10.0 (0-20) pg/ml B-Natriuretic Peptide 74 (0-100) pg/ml Total Protein 7.0 (6.0-8.3) gm/dl Albumin 4.0 (3.4-5.0) gm/dl Globulin 3.0 (2.5-4.0) gm/dl Albumin/Globulin Ratio 1.3 (0.9-2) Procalcitonin 0.08 (0-0.5) ng/ml Urine Color Yellow Urine Appearance Clear (Clear) Urine pH 7.5 (4.5-7.5) Ur Specific [place] 1.006 (1.000-1.030) Urine Protein Negative (Negative) Urine Glucose (UA) Negative (Negative) Urine Ketones Negative (Negative) Urine Blood Negative (Negative) Urine Nitrite Negative (Negative) Urine Bilirubin Negative (Negative) Urine Urobilinogen Negative (Negative) Ur Leukocyte Esterase Negative (Negative) Adenovirus (PCR) Not Detected (NotDetected) B. pertussis DNA (PCR) Not Detected (NotDetected) B.parapertussis DNA PCR Not Detected (NotDetected) C. pneumoniae DNA (PCR) Not Detected (NotDetected) Coronavirus OC43 (PCR) Not Detected (NotDetected) Coronavirus HKU1 (PCR) Not Detected (NotDetected) Coronavirus 229E (PCR) Not Detected (NotDetected) SARS-CoV-2 (PCR) Not Detected (NotDetected) Coronavirus NL63 (PCR) Not Detected (NotDetected) Human Metapneumovir PCR Not Detected (NotDetected) Influenza Type A (PCR) Not Detected (NotDetected) Influenza Type B (PCR) Not Detected (NotDetected) M. pneumoniae (PCR) Not Detected (NotDetected) Parainfluenza 1 (PCR) Not Detected (NotDetected) Parainfluenza 2 (PCR) Not Detected (NotDetected) Parainfluenza 3 (PCR) Not Detected (NotDetected) Parainfluenza 4 (PCR) Not Detected (NotDetected) RSV (PCR) Not Detected (NotDetected) Entero/Rhino (PCR) Not Detected (NotDetected) 01/27/25 Range/Units 00:52 WBC (4.8-10.8) K/ul RBC (4.70-6.10) M/uL Hgb (14.0-18.0) g/dl Hct (42.0-52.0) % MCV (80.0-100.0) fL MCH (25.0-34.0) pg MCHC (32.0-36.0) g/dL RDW Std Deviation (36.4-46.3) fL RDW Coeff of Roni (11.5-14.5) % Plt Count (130-400) K/uL MPV (9.4-12.4) fL Immature Gran % (Auto) % Neut % (Auto) % Lymph % (Auto) % Perry % (Auto) % Eos % (Auto) % Baso % (Auto) % Neut # (Auto) (1.40-6.50) K/uL Lymph # (Auto) (1.20-3.40) K/uL Perry # (Auto) (0.11-0.59) K/uL Eos # (Auto) (0.00-0.50) K/uL Baso # (Auto) (0.00-0.20) K/uL Immature Gran # (Auto) (0.01-0.20) K/uL Sodium (136-145) mmol/L Potassium (3.5-5.1) mmol/L Chloride (98-107) mmol/L Carbon Dioxide (21-32) mmol/L Anion Gap (3-11) BUN (6-23) mg/dl Creatinine (0.6-1.4) mg/dl Est Cr Clr Drug Dosing ml/min eGFR BUN/Creatinine Ratio (10-20) Glucose (70-99(Fasting)) mg/dl Lactate 0.8 (0.4-2.0) mmol/L Calcium (8.6-10.3) mg/dl Magnesium 2.0 (1.7-2.4) mg/dl Total Bilirubin (0.2-1.0) mg/dl AST (13-39) U/L ALT (7-52) U/L Alkaline Phosphatase (34-104) U/L Troponin I High Sens 8.2 (0-20) pg/ml B-Natriuretic Peptide (0-100) pg/ml Total Protein (6.0-8.3) gm/dl Albumin (3.4-5.0) gm/dl Globulin (2.5-4.0) gm/dl Albumin/Globulin Ratio (0.9-2) Procalcitonin (0-0.5) ng/ml Urine Color Urine Appearance (Clear) Urine pH (4.5-7.5) Ur Specific [place] (1.000-1.030) Urine Protein (Negative) Urine Glucose (UA) (Negative) Urine Ketones (Negative) Urine Blood (Negative) Urine Nitrite (Negative) Urine Bilirubin (Negative) Urine Urobilinogen (Negative) Ur Leukocyte Esterase (Negative) Adenovirus (PCR) (NotDetected) B. pertussis DNA (PCR) (NotDetected) B.parapertussis DNA PCR (NotDetected) C. pneumoniae DNA (PCR) (NotDetected) Coronavirus OC43 (PCR) (NotDetected) Coronavirus HKU1 (PCR) (NotDetected) Coronavirus 229E (PCR) (NotDetected) SARS-CoV-2 (PCR) (NotDetected) Coronavirus NL63 (PCR) (NotDetected) Human Metapneumovir PCR (NotDetected) Influenza Type A (PCR) (NotDetected) Influenza Type B (PCR) (NotDetected) M. pneumoniae (PCR) (NotDetected) Parainfluenza 1 (PCR) (NotDetected) Parainfluenza 2 (PCR) (NotDetected) Parainfluenza 3 (PCR) (NotDetected) Parainfluenza 4 (PCR) (NotDetected) RSV (PCR) (NotDetected) Entero/Rhino (PCR) (NotDetected) Administered Medications Budesonide (Budesonide 0.5 Mg/2 Ml Vial (Pulmicort)) 0.5 mg NEB BIDR [facility] Stop: 02/26/25 18:59 Last Admin: 01/27/25 19:30 Dose: 0.5 mg Documented By: EVETTE [facility]umetan[facility] ([facility] 1 Mg Tab) [facility] Stop: 02/26/25 08:59 Last Admin: 01/27/25 08:56 Dose: 1 mg Documented By: MARCELINO Carvedilol (Carvedilol 12.5 Mg Tab) 12.5 mg PO BID [facility] Stop: 02/26/25 08:59 Last Admin: 01/27/25 20:20 Dose: 12.5 mg Documented By: Admin: 01/27/25 08:55 Dose: 12.5 mg Documented By: MARCELINO Ezetimibe (Ezetimibe 10 Mg Tab) [facility] Stop: 02/26/25 08:59 Last Admin: 01/27/25 08:55 Dose: 10 mg Documented By: MARCELINO Enoxaparin Sodium (Enoxaparin Inj 40 Mg/0.4 Ml Syr) 40 mg SQ Q24H [facility] Stop: 02/26/25 08:59 Last Admin: 01/27/25 08:55 Dose: 40 mg Documented By: MARCELINO Formoterol Fumarate (Formoterol 20 Mcg/2 Ml Vial) 20 mcg NEB BIDR [facility] Stop: 02/26/25 18:59 Last Admin: 01/27/25 19:29 Dose: 20 mcg Documented By: EVETTE Metronidazole (Flagyl) 500 mg in 100 mls @ 100 mls/hr IV Q8H [facility]; Protocol Stop: 02/01/25 09:59 Last Infusion: 01/28/25 02:48 Dose: Infused Documented By: Admin: 01/28/25 01:48 Dose: 100 mls/hr Documented By: Infusion: 01/27/25 19:36 Dose: Infused Documented By: Admin: 01/27/25 18:34 Dose: 100 mls/hr Documented By: Infusion: 01/27/25 10:50 Dose: Infused Documented By: Admin: 01/27/25 09:48 Dose: 100 mls/hr Documented By: MARCELINO Cefepime HCl (Maxipime 2000mg) 2,000 mg in 20 mls @ 5 mls/min IV Q8H [facility]; Protocol Stop: 02/01/25 13:14 Last Admin: 01/28/25 04:36 Dose: 5 mls/min Documented By: Admin: 01/27/25 20:19 Dose: 5 mls/min Documented By: Admin: 01/27/25 14:16 Dose: 5 mls/min Documented By: ARIC Insulin Aspart (Insulin Aspart Per Unit Charge) 0 units SC ACHS [facility] Stop: 02/26/25 07:29 Last Admin: 01/27/25 20:38 Dose: Not Given Documented By: Admin: 01/27/25 18:33 Dose: Not Given Documented By: Admin: 01/27/25 11:58 Dose: Not Given Documented By: Admin: 01/27/25 08:38 Dose: Not Given Documented By: MARCELINO Magnesium Oxide (Magnesium Oxide 400 Mg Tab) 400 mg PO [facility] Stop: 02/26/25 08:59 Last Admin: 01/27/25 08:56 Dose: 400 mg Documented By: MARCELINO Multivitamins (Multivitamin Tab) 1 tab PO [facility] Stop: 02/26/25 08:59 Last Admin: 01/27/25 08:58 Dose: 1 tab Documented By: MARCELINO Naltrexone HCl (Naltrexone Hcl 50 Mg Tab) 50 mg PO HS [facility] Stop: 02/26/25 20:59 Last Admin: 01/27/25 20:19 Dose: 50 mg Documented By: KIT Nifedipine (Nifedipine Extended Rel 30 Mg Tabcr) 30 mg PO [facility] Stop: 02/26/25 08:59 Last Admin: 01/27/25 08:56 Dose: 30 mg Documented By: MARCELINO Oxybutynin Chloride (Oxybutynin Chloride Xl 5 Mg Tabcr) 5 mg PO DAILY [facility] Stop: 02/26/25 08:59 Last Admin: 01/27/25 08:56 Dose: 5 mg Documented By: MARCELINO Pantoprazole Sodium (Pantoprazole 40 Mg Tab) 40 mg PO QAM [facility] Stop: 02/26/25 08:59 Last Admin: 01/27/25 08:59 Dose: 40 mg Documented By: MARCELINO Potassium Chloride (Potassium Chloride 10 Meq Tabcr) 20 meq PO [facility] Stop: 02/26/25 08:59 Last Admin: 01/27/25 08:56 Dose: 20 meq Documented By: MARCELINO Pregabalin (Pregabalin 75 Mg Cap) 225 mg PO BID [facility] Stop: 02/26/25 08:59 Last Admin: 01/27/25 20:19 Dose: 225 mg Documented By: Admin: 01/27/25 08:59 Dose: 225 mg Documented By: MARCELINO Sodium Chloride (Sodium Chlor 7% 4 Ml Neb) 4 ml NEB BIDR [facility] Stop: 02/26/25 18:59 Last Admin: 01/27/25 19:29 Dose: 4 ml Documented By: EVETTE Terazosin HCl (Terazosin Hcl 5 Mg Cap) 10 mg PO HS [facility] Stop: 02/26/25 20:59 Last Admin: 01/27/25 20:19 Dose: 10 mg Documented By: KIT Thiamine HCl (Thiamine Hcl 100 Mg Tab) 300 mg PO BID [facility] Stop: 02/26/25 08:59 Last Admin: 01/27/25 20:20 Dose: 300 mg Documented By: Admin: 01/27/25 08:56 Dose: 300 mg Documented By: MARCELINO Topiramate (Topiramate 25 Mg Tab) 25 mg PO BID [facility] Stop: 02/26/25 08:59 Last Admin: 01/27/25 20:19 Dose: 25 mg Documented By: Admin: 01/27/25 08:56 Dose: 25 mg Documented By: MARCELINO Umeclidinium Immaculata (Umeclidinium Immaculata 62.5mcg/Blister 7 Puffs/Inhaler) 1 puffs INH DAILY [facility] Stop: 02/26/25 08:59 Last Admin: 01/27/25 08:55 Dose: 1 puffs Documented By: MARCELINO Discontinued Medications Carvedilol (Carvedilol 12.5 Mg Tab) 12.5 mg PO NOW STA Stop: 01/27/25 02:49 Last Admin: 01/27/25 03:17 Dose: 12.5 mg Documented By: JOSE MARIA Fluticasone/Vilanterol (Fluticasone/Vilanterol 100/25mcg 14 Puffs/Inhaler) 1 puffs INH DAILY [facility] Stop: 02/26/25 08:59 Last Admin: 01/27/25 08:54 Dose: 1 puffs Documented By: MARCELINO Levofloxacin/Dextrose (Levaquin/D5w) 750 mg in 150 mls @ 100 mls/hr IV NOW STA Stop: 01/27/25 02:54 Last Infusion: 01/27/25 03:17 Dose: Infused Documented By: JOSE MARIA Admin: 01/27/25 01:39 Dose: 100 mls/hr Documented By: JOSE MARIA Metronidazole (Flagyl) 500 mg in 100 mls @ 100 mls/hr IV ONE STA; Protocol Stop: 01/27/25 03:47 Last Infusion: 01/27/25 04:20 Dose: Infused Documented By: JOSE MARIA Admin: 01/27/25 03:18 Dose: 100 mls/hr Documented By: JOSE MARIA Montelukast Sodium (Montelukast Sodium 10 Mg Tablet) 10 mg PO HS [facility] Stop: 02/26/25 03:57 Last Admin: 01/27/25 05:20 Dose: 10 mg Documented By: JOSE MARIA Potassium Chloride (Potassium Chloride Crtab 20 Meq Tabcr) 40 meq PO NOW STA Stop: 01/27/25 02:46 Last Admin: 01/27/25 03:17 Dose: 40 meq Documented By: JOSE MARIA Discharge Plan Visit Data Chief Complaint: Cardiac Assessment Stated Complaint: TACHYCARDIA ED Provider: Jeannette Dupont Discharge Problem: Hypoxia, Pneumonia Patient Disposition: Admitted As Inpatient Condition: Critical Discharge Instructions Interventions: ED Discharge Assessment Last Done: 01/27/25 12:43 Discharge Problem: Pneumonia Qualifiers: Aspiration pneumonia type: unspecified Laterality: right
[2025-01-27 01:04] LABS: Adenovirus PCR Not Detected (NotDetected); Bordetella parapertussis PCR Not Detected (NotDetected); Bordetella pertussis PCR Not Detected (NotDetected); Chlamydia pneumoniae PCR Not Detected (NotDetected); Coronavirus 229E PCR Not Detected (NotDetected); Coronavirus CoV-2 (COVID19)PCR Not Detected (NotDetected); Coronavirus HKU1 PCR Not Detected (NotDetected); Coronavirus NL63 PCR Not Detected (NotDetected); Coronavirus OC43PCR Not Detected (NotDetected); Human Metapneumovirus PCR Not Detected (NotDetected); Influenza A PCR Not Detected (NotDetected); Influenza B PCR Not Detected (NotDetected); Mycoplasma pneumoniae PCR Not Detected (NotDetected); Parainfluenza Virus 1 PCR Not Detected (NotDetected); Parainfluenza Virus 2 PCR Not Detected (NotDetected); Parainfluenza Virus 3 PCR Not Detected (NotDetected); Parainfluenza Virus 4 PCR Not Detected (NotDetected); Respiratory Syncytial VirusPCR Not Detected (NotDetected); Rhinovirus/Enterovirus PCR Not Detected (NotDetected)
--- NOTE | 2025-01-27 01:23 | XRay Report ---
EXAM: XR chest 1V portable CLINICAL HISTORY: Dyspnea. TECHNIQUE: An X-ray image of the chest is obtained in AP projection. COMPARISON: 12/28/2024 CT chest. FINDINGS: Pulmonary Parenchyma: Chest leads are seen Haziness/infiltrates seen in right perihilar region and mid lower zone. Possible atelectatic band in left lung lower zone. Vascular congestion seen in both hilar and perihilar regions. No pulmonary nodules are identified. Right costophrenic angle is shallow. Elevated right hemidiaphragm is identified. Heart and Mediastinum: Heart size is normal. No mediastinal widening or masses. No hilar or mediastinal lymphadenopathy. Bony Thorax: Bony thorax appears intact without fractures or deformities. Implants are identified in cervical spine. Soft Tissues: Soft tissues overlying the chest wall are unremarkable. IMPRESSION: 1. Haziness/infiltrates in right perihilar region and mid lower zone, likely due to pulmonary infection, with no gross interval change. 2. Redemonstration of bilateral hilar perihilar vascular congestion with no gross change. 3. Redemonstration of elevated right hemidiaphragm with no gross change. 4. Right costophrenic angle is shallow, may be due to overlying rib shadow. If clinically required ultrasound may be obtained. 5. Possible trace pleural effusion bilaterally in prior CT. 6. No other significant interval changes. Electronically signed by Brody Sanchez 01-27-2025 01:23 AM
[2025-01-27 01:37] LABS: Troponin I High Sensitivity 8.2 pg/ml (0-20)
[2025-01-27] MEDS: levoFLOXacin/D5W 750 MG/150 ML BAG IV STA (01:39)
--- NOTE | 2025-01-27 02:00 | History & Physical Report ---
Date of Service January 27, 2025 Assessment & Plan (1) Pneumonia: (2) Hypoxia: (3) Ambulatory dysfunction: (4) COPD (chronic obstructive pulmonary disease): Plan Patient is a 79-year-old male with past medical history of HFpEF, COPD, T2DM, history of alcohol use disorder, recurrent pneumonia, bladder and prostate cancer s/p radical prostatectomy. Patient was recently admitted in December with pneumonia suspected to be secondary to aspiration however patient canceled outpatient swallow study; treated with course of Levaquin. Patient returns to the ED this evening due to cough, wheezing, weakness, and dizziness. CXR showed concern for pneumonia. Patient also hypoxic at 88% on room air. #pneumonia/hypoxia - 88% on room air, currently on 2L nasal cannula at time of admission. Leukocytosis with white count 19.29 with neutrophil predominance (appears slightly more elevated than baseline). CXR showed right perihilar and mid lower lobe consolidation concerning for pneumonia. Previous sputum cultures in December grew Staph aureus with many resistances. Procalcitonin negative. Does meed SIRS criteria with leukocytosis and intermittent tachycardia - however will defer sepsis fluid bolus given tachycardia improved, lactate 0.8, procal 0.08, and CHF history - Patient unable to obtain swallow study with recent admission, not yet obtained outpatient swallow study; will order speech consult to potentially obtain swallow study - of note did have speech consult with recent admission, stated low suspicion for aspiration - however with recurrent pneumonia and patient reporting aspiration, remains on differential - Pulmonology consulted - Started on Levaquin in ED due to penicillin allergy; continue - Will add Flagyl for anaerobic coverage - MRSA swab ordered - Incentive spirometry and flutter valve - Sputum cultures ordered - Blood cultures pending - Oxygen goal > 90% - aspiration precautions - given hypoxia, tachycardia, and decrease in activity level - will obtain D Dimer. Patient denies any LE edema or pain. #COPD - patient with significant smoking history, quit approximately 15 years ago. 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 No acute exacerbation at time of admission. Not wheezing on exam. - continue home inhalers - DuoNebs as needed - Sputum cultures ordered with yellow sputum production #HFpEF - Stable, not in acute exacerbation. newly diagnosed in August 2024. Recent echo showed EF 65 to 70%, severe LVH, grade 1 diastolic dysfunction, mild aortic root dilatation, mild AR, mild MR. - Continue Bumex, carvedilol, magnesium supplement - With persistent hypokalemia, potassium 3.4 at time of admission; will increase home supplement from 10 mEq daily to 20 mEq daily - 40 mEq p.o. ordered at time of admission #First-degree AV block/tachycardia - patient's heart rate trending between 80 to 120 bpm, EKG shows first-degree AV block (known history of). Troponin 10.0 -> 8.2. Electrolytes stable. - monitor on telemetry with fluctuating heart rate #Weakness/ambulatory dysfunction - Patient reports significant ambulatory dysfunction and worsening weakness over several weeks. With recent 20 pound weight loss since starting diuretics and Mounjaro. - PT/OT consulted - Dietitians consulted - Consider adding daily boost shake after swallow study/speech eval - Daily multivitamin #tremors - patient reports bilateral upper extremity "twitchy" sensation prior several months. Episodes typically last several minutes, however has lasted most of the day prior to arrival. Recent TSH WNL. - B12 with AM labs - continue Lyrica #T2DM - Controlled on Mounjaro at home, held. Most recent A1C 6.6%. - loose SSI with target BSG range 110-180mg/dL, CF 40 #HTN - stable - continue carvedilol and nifedipine #Alcohol use disorder - Continue naltrexone and thiamine #Urinary incontinence/urinary urgency/prostate cancer - s/p radical prostatectomy. Follows with urology. - Continue oxybutynin and trospium VTE ppx: Lovenox 40 mg Q24h Dispo: med/telemetry Admission and Anticipated Discharge Date Admission Date: 01/27/25 History of Present Illness Chief Complaint: cardiac assessment Primary Care Provider: Dea Waldron PA-C Patient is a 79-year-old male with past medical history of HFpEF, COPD, T2DM, history of alcohol use disorder, recurrent pneumonia. Patient was recently admitted in December with pneumonia suspected to be secondary to aspiration however patient canceled outpatient swallow study; treated with course of Levaquin. Patient returns to the ED this evening due to cough, wheezing, weakness, and dizziness. CXR showed concern for pneumonia. Patient also hypoxic at 88% on room air. Patient seen at bedside. He stated that he came in this evening due to his heart rate bouncing up and down and his oxygen levels being low. Patient also reports ambulatory dysfunction due to weakness stating that he could barely walk this evening due to poor balance, weakness, and dizziness. He has had approximately 20 pound weight loss since starting diuretics in August and recently starting Mounjaro. He feels as though this helps decrease his fluid retention however weight loss may be extreme and contributing to weakness. Patient stated he has had recurrent pneumonia and does endorse probable aspiration as he tends to cough within with liquids. Denies any aspiration with food intake. He completed a course of Levaquin after diagnosis and admission for pneumonia in December, stated symptoms did get better however did not completely go away. He has had the same chest congestion/sputum producing cough for several months. He stated his sputum production is yellow. He feels like his chest is full of liquid and he coughs whenever he takes a deep breath. He also endorses dyspnea on exertion when going up steps, has however has had a decrease in his activity level and was going to start trying to exercise tomorrow. He denies any fevers. Patient was also concerned due to a "twitchy sensation "that he has been having in his bilateral hands on and off for several months. He stated the twitchiness has been present for most of the day today and caused him to spill his ice tea on his lap. Patient follows with automatic machines supervisor and out to now with the [place], Dr. Giordano. He stated that his automatic machines supervisor stated he does not have COPD, he does have a smoking history and quit approximately 15 years ago. Patient denies any oxygen use at baseline. He still needs his evening medications, states he has been compliant on home medications. He wishes to be full code however would not want long-term ventilation. He does have an allergy to penicillin, stated he had significant swelling when he was a child, but was too young to remember. Allergies Allergy/AdvReac Type Severity Reaction Status Date / Time Penicillins Allergy Severe SWELLING, Verified 11/29/24 13:31 TROUBLE BREATHING fluvastatin [From Lescol] Allergy Unknown Unknown Verified 11/29/24 13:31 lisinopril Allergy Unknown Unknown Verified 11/29/24 13:31 lovastatin Allergy Unknown PT DOESN'T Verified 11/29/24 13:31 REMEMBER REACTION-NAUSEA? simvastatin Allergy Unknown PT DOESN'T Verified 11/29/24 13:31 REMEMBER REACTION-NAUSEA? diazepam AdvReac Mild lethargy Verified 11/29/24 13:31 losartan AdvReac Mild Dizziness Verified 11/29/24 13:31 Eybwybe-OPV-FnR Reductase AdvReac Unknown NAUSEA Verified 11/29/24 13:31 Inhibitor [Jvjbobz-Oce-Dxq Reductase Inhibitor] Home Medications Medication Instructions Recorded Confirmed Type coenzyme Q10 400 mg capsule 400 mg PO QAM 03/01/21 12/28/24 History loratadine 10 mg tablet (Claritin) 10 mg PO QAM allergies 03/01/21 12/28/24 History montelukast 10 mg tablet 10 mg PO HS 03/01/21 12/28/24 History multivitamin 1 tab PO QAM 03/01/21 12/28/24 History omega 5-fdj-rdr-fish oil 1,000 mg 1,400 mg PO BID ##0 03/01/21 12/28/24 History (120 mg-180 mg) capsule (Fish Oil) omeprazole 20 mg tablet,delayed 40 mg PO QAM 03/01/21 12/28/24 History release naltrexone 50 mg tablet 50 mg PO HS 11/16/21 12/28/24 History thiamine HCl (vitamin B1) 100 mg 300 mg PO BID 04/28/23 12/28/24 History tablet (Vitamin B-1) lidocaine 5 % topical patch 1 patch topical DAILY PRN Pain 05/02/23 12/28/24 History albuterol sulfate 90 mcg/actuation 2 inh inhalation DAILY PRN 12/12/23 12/28/24 History aerosol inhaler Shortness Of Breath Or Wheezing clotrimazole 1 % topical cream 1 applic topical BID PRN Rash 12/12/23 12/28/24 History fluticasone 500 mcg-salmeterol 50 1 inh inhalation BID 12/12/23 12/28/24 History mcg/dose blistr powdr for inhalation (Wixela Inhub) oxybutynin chloride 5 mg tablet 5 mg PO BID #60 tabs 07/17/24 12/28/24 Rx clindamycin phosphate 1 % topical 1 applic topical BID PRN Breakouts 09/05/24 12/28/24 History solution hydrocortisone 2.5 % topical cream 1 applic topical DAILY PRN 09/05/24 12/28/24 History Psoriasis lanolin alcohols-mineral 1 applic topical DAILY PRN Dry Skin 09/05/24 12/28/24 History oil-w.petrolatum-ceresin topical cream (Eucerin topical cream) magnesium 250 mg tablet 250 mg PO QAM 09/05/24 12/28/24 History pregabalin 225 mg capsule 225 mg PO BID 09/05/24 12/28/24 History salicylic acid 3 % shampoo 1 ea topical DAILY 09/05/24 12/28/24 History selenium sulfide 2.5 % lotion 1 applic topical Q OTHER DAY 09/05/24 12/28/24 History terazosin 10 mg capsule 10 mg PO HS 09/05/24 12/28/24 History topiramate 25 mg tablet 25 mg PO BID Migraine Prevention 09/05/24 12/28/24 History vitamin E 268 mg (400 unit) capsule 268 mg PO QAM 09/05/24 12/28/24 History bumetanide 1 mg tablet 1 mg PO QAM #30 tabs 09/07/24 12/28/24 Rx sennosides 8.6 mg tablet (Senokot) 17.2 mg (2 x 8.6 mg) PO HS PRN 09/07/24 12/28/24 Rx constipation #14 tabs cholecalciferol (vitamin D3) 50 50 mcg PO QAM 09/24/24 12/28/24 History mcg (2,000 unit) capsule nifedipine 30 mg tablet,extended 30 mg PO QAM 09/24/24 12/28/24 History release 24 hr carvedilol 12.5 mg tablet 12.5 mg PO BID 11/07/24 12/28/24 History docusate sodium 100 mg capsule 100 mg PO DAILY PRN Constipation 11/07/24 History potassium chloride 10 mEq 10 meq PO QAM 11/07/24 12/28/24 History tablet,extended release tiotropium 2.5 mcg-olodaterol 2.5 2 puff inhalation QAM 11/07/24 12/28/24 History mcg/actuation mist for inhalation baclofen 5 mg tablet 5 mg PO DAILY PRN Muscle Spasm 11/23/24 12/28/24 History trospium 20 mg tablet 20 mg PO BID #60 tabs 11/29/24 12/28/24 Rx tirzepatide 5 mg/0.5 mL 5 mg (0.5 mL) subcut Q7D #2 mL 12/20/24 12/28/24 Rx subcutaneous pen injector (Sathish) ezetimibe 10 mg tablet (Zetia) 10 mg PO QAM 12/28/24 12/28/24 History levofloxacin 750 mg tablet 750 mg PO DAILY #3 tabs 12/31/24 Rx Past Med/Surg History Problem List (Updated 01/27/25 @ 03:10 by Sarah Beth Watkins PA-C) COPD (chronic obstructive pulmonary disease) Ambulatory dysfunction Pneumonia Hypoxia Lumbar stenosis with neurogenic claudication Thoracic aortic aneurysm (TAA) Atherogenic dyslipidemia Left ventricular hypertrophy Analgesic rebound headache Tension type headache Lumbar sprain Left lower lobe pneumonia (Acute) Shortness of breath (Acute) Acute hypoxemic respiratory failure (Acute) Chronic diastolic CHF (congestive heart failure) Hospital-acquired pneumonia Hypertensive urgency Acute hypoxemic respiratory failure (Acute) Acute exacerbation of CHF (congestive heart failure) (Acute) Hypertensive emergency (Acute) Daily urinary incontinence Gait apraxia Cerebral ventriculomegaly Rupture of left proximal biceps tendon with repair Subjective memory complaints Prostate cancer Urinary urgency H/O alcohol dependence Elevated CPK Muscle cramp Lumbosacral radiculopathy Idiopathic polyneuropathy Alcohol use disorder Pulmonary nodule Delirium tremens Confusion (Acute) Pneumonia Ataxia Mixed headache Memory loss Hypercholesteremia (Chronic) Bladder neoplasm (Acute) Cervical stenosis of spine (Acute) Arthritis (Chronic) Cognitive complaints (Acute) Common migraine without aura (Chronic) Lumbar radiculopathy (Chronic) Peripheral neuropathy (Chronic) Tremor (Chronic) Type 2 diabetes mellitus (Chronic) diet controlled per pt Migraine Diabetes (Chronic) Medical History (Updated 01/27/25 @ 03:10 by Sarah Beth Watkins PA-C) Asthma Hypertension History of injury of tendon bicep tear w/ repair History of alcohol withdrawal delirium (2020) Hypotension 02/07/25- states had blood pressure medication adjustment early 12/2023 by pcp; bp meds currently back up to previous dosages. History of pneumonia (2020) Tremor Pulmonary nodule monitoring Peripheral neuropathy Migraine Diabetes diet controlled Arthritis History of prostate cancer (2019) History of COVID-19 2021- no hosp; resolved H/O alcohol dependence has approx 1 drink per month now > "quit in February 2022" Osteoarthritis SOB (shortness of breath) on exertion 02/08/24- recent increase in SOB, nausea and weakness with exertion (home bp reading during episode 112/66) Asthma uses rescue inhaler 1-2 times per week Hyperlipidemia Surgical History History of cataract surgery right Status post lung surgery H/O elbow surgery H/O prostatectomy History of bronchoscopy History of colonoscopy History of surgery on arm LEFT ELBOW-TENDON SURG Fusion of spine CERVICAL > "slightly" limited ROM side to side History of lobectomy of lung RIGHT MIDDLE LOBE-BENIGN Family History Father Diabetes Cardiac disorder Unknown Hypertension Mother Cardiac disorder Social History Smoking Status: Never smoker Tobacco Type: Cigarettes Second Hand Exposure: No; Do You Dip or Chew Tobacco: No; Hx Alcohol Use: No Hx Substance Use: No Preferred Language: Thai Communication Ability: Effective Slack Cooper Required: No Beliefs That Will Affect Care: None Current Living Situation: Spouse Feels Safe at Home: Yes Assistive Devices: Cane and Walker Review of Systems Review of Systems: See HPI Physical Exam Physical Exam: The patient is awake, alert and oriented 3, Cachectic appearing, normo cephalic and atraumatic, in no acute distress. HEENT- EOMI, mucous membranes moist. Hearing grossly intact. Heart-normal S1 and S2. No murmurs, rubs or gallops. Lungs-decreased bilaterally, no adventitious breath sounds, no respiratory distress, no accessory muscle use. 2L NC. Abdomen-normal bowel sounds and soft. No ascites noted. Non-tender. Extremities- no clubbing, cyanosis, or edema. Psychiatric-normal affect. Results & Data Results & Data Vital Signs (Past 12 Hours) Vital Signs Temp Pulse Pulse Resp BP BP Pulse Ox 01/27/25 01:30 36.8 C 81 16 121/75 16 L 01/27/25 01:16 91 H 16 125/83 93 01/27/25 00:31 82 18 121/82 96 01/27/25 00:13 113 H 16 94 01/27/25 00:00 111 H 16 124/84 95 01/26/25 23:30 01/26/25 23:30 115 H 18 128/70 92 01/26/25 23:25 88 L 01/26/25 23:22 111 H 16 103/76 90 01/26/25 23:15 113 H 01/26/25 23:07 36.9 C 97 H 18 124/77 90 O2 Del Method O2 Flow Rate 01/27/25 01:30 Nasal Cannula 2 01/27/25 01:16 Nasal Cannula 2 01/27/25 00:31 Nasal Cannula 2 01/27/25 00:13 Nasal Cannula 2 01/27/25 00:00 Nasal Cannula 2 01/26/25 23:30 Nasal Cannula 2 01/26/25 23:30 Nasal Cannula 2 01/26/25 23:25 Room Air, Nasal Cannula 0 01/26/25 23:22 Room Air 01/26/25 23:15 01/26/25 23:07 Room Air Laboratory Results reviewed CBC, CMP, magnesium, BNP,Procalcitonin, UA, bio fire Diagnostic Findings reviewed CXR Medications Administered EDLevaquin 750 Mg IV Code Status & VTE Plan Code Status full code VTE Prophylaxis Plan VTE Prophylaxis will be ordered: Yes PG Care Time/CCT Total # of Minutes Spent Total Time Spent with Patient: Total time spent is greater than 50% in coordination of care (as documented) at patient's floor/unit and/or counseling patient: Coding Level of Care Code 70255 INT INP/OBS CARE MIN Diagnoses Pneumonia J18.9 Hypoxia R09.02 Ambulatory dysfunction R26.2 COPD (chronic obstructive pulmonary disease) J44.9
[2025-01-27] MEDS: carvediloL 12.5 MG TAB PO STA (03:17)
[2025-01-27] MEDS: POTASSIUM CHLORIDE CRTAB 20 MEQ TABCR PO STA (03:17)
[2025-01-27] MEDS: metroNIDAZOLE 500 MG/100 ML BAG IV STA (03:18)
[2025-01-27] MEDS ORDERED: GLUCAGON FOR INJ 1 MG VIAL SQ PRN (03:58)
[2025-01-27] MEDS ORDERED: MELATONIN 3 MG TAB PO PRN (03:58)
[2025-01-27] MEDS ORDERED: CLINDAMYCIN PHOSPHATE 1% TOP PRN (03:58)
[2025-01-27] MEDS ORDERED: DEXTROSE 50% 50 ML SYRINGE IV PRN (03:58)
[2025-01-27] MEDS ORDERED: CARBOHYDRATES FOR HYPOGLYCEMIA PO PRN (03:58)
[2025-01-27] MEDS ORDERED: BACLOFEN 10 MG TAB PO PRN (03:58)
[2025-01-27] MEDS ORDERED: DOCUSATE SODIUM 100 MG CAP PO PRN (03:58)
[2025-01-27] MEDS ORDERED: SENNA 8.6 MG TAB PO PRN (03:58)
[2025-01-27] MEDS ORDERED: ONDANSETRON INJ 2 MG/ML 2 ML VIAL IV PRN (03:58)
[2025-01-27] MEDS ORDERED: ALBUT/IPRATROP 3MG/0.5MG NEB 3 ML VIAL NEB PRN (03:58)
[2025-01-27] MEDS ORDERED: GLUCOSE 10 TAB/TUBE PO PRN (03:58)
[2025-01-27] MEDS ORDERED: HYDROCORTISONE 2.5% CR 30 GM TUBE EXT PRN (03:58)
[2025-01-27] MEDS ORDERED: CLOTRIMAZOLE 1% CR 15 GM TUBE TOP PRN (03:58)
[2025-01-27] MEDS ORDERED: ACETAMINOPHEN 325 MG TAB PO PRN (03:58)
[2025-01-27] MEDS ORDERED: GLUCOSE 40% GEL 15 GM TUBE PO PRN (03:58)
[2025-01-27 05:12] LABS: Basophils # (auto) 0.08 K/uL (0.00-0.20); Basophils % (auto) 0.5 %; Eosinophils # (auto) 0.45 K/uL (0.00-0.50); Eosinophils % (auto) 2.6 %; Hematocrit (blood only) 39.8 % (42.0-52.0); Hemoglobin 13.5 g/dl (14.0-18.0); Immature Granulocytes # (auto) 0.08 K/uL (0.01-0.20); Immature Granulocytes % (auto) 0.5 %; Lymphocytes # (auto) 1.54 K/uL (1.20-3.40); Mean Corpuscular Hemoglobin 30.1 pg (25.0-34.0); Mean Corpuscular Hgb Conc 33.9 g/dL (32.0-36.0); Mean Corpuscular Volume 88.6 fL (80.0-100.0); Mean Platelet Volume 11.6 fL (9.4-12.4); Monocytes # (auto) 1.45 K/uL (0.11-0.59); Monocytes % (auto) 8.5 %; Neutrophils # (auto) 13.53 K/uL (1.40-6.50); Neutrophils % (auto) 78.9 %; Platelet Count 163 K/uL (130-400); RDW Coefficient of Variation 15.4 % (11.5-14.5); RDW Standard Deviation 50.2 fL (36.4-46.3); Red Blood Count 4.49 M/uL (4.70-6.10); White Blood Count 17.13 K/ul (4.8-10.8)
[2025-01-27] MEDS: MONTELUKAST SODIUM 10 MG TABLET PO SCH (05:20)
[2025-01-27 05:28] LABS: BUN Creatinine Ratio 14.1 (10-20); Calcium 8.6 mg/dl (8.6-10.3); Magnesium 1.9 mg/dl (1.7-2.4); Potassium 3.2 mmol/L (3.5-5.1)
[2025-01-27 05:37] LABS: D Dimer 500 ug/L FEU (0-500)
[2025-01-27] MEDS: INSULIN ASPART PER UNIT CHARGE SC SCH (08:38)
[2025-01-27] MEDS: FLUTICASONE/VILANTEROL 100/25MCG 14 PUFFS/INHALER INH SCH (08:54)
[2025-01-27] MEDS: EZETIMIBE 10 MG TAB PO SCH (08:55)
[2025-01-27] MEDS: UMECLIDINIUM BROMIDE 62.5MCG/BLISTER 7 PUFFS/INHALER INH SCH (08:55)
[2025-01-27] MEDS: ENOXAPARIN INJ 40 MG/0.4 ML SYR SQ SCH (08:55)
[2025-01-27] MEDS: carvediloL 12.5 MG TAB PO SCH (08:55)
[2025-01-27] MEDS: NIFEdipine EXTENDED REL 30 MG TABCR PO SCH (08:56)
[2025-01-27] MEDS: MAGNESIUM OXIDE 400 MG TAB PO SCH (08:56)
[2025-01-27] MEDS: THIAMINE HCL 100 MG TAB PO SCH (08:56)
[2025-01-27] MEDS: OXYBUTYNIN CHLORIDE XL 5 MG TABCR PO SCH (08:56)
[2025-01-27] MEDS: BUMETANIDE 1 MG TAB PO SCH (08:56)
[2025-01-27] MEDS: POTASSIUM CHLORIDE 10 MEQ TABCR PO SCH (08:56)
[2025-01-27] MEDS: TOPIRAMATE 25 MG TAB PO SCH (08:56)
[2025-01-27] MEDS: MULTIVITAMIN TAB PO SCH (08:58)
[2025-01-27] MEDS: PREGABALIN 75 MG CAP PO SCH (08:59)
[2025-01-27] MEDS: PANTOprazole 40 MG TAB PO SCH (08:59)
[2025-01-27] MEDS ORDERED: oxyBUTYnin chloride 5 MG TAB PO SCH (09:00)
--- NOTE | 2025-01-27 09:46 | Electrocardiogram Report ---
Test Reason : Blood Pressure : */* mmHG Vent. Rate : 84 BPM Atrial Rate : 84 BPM P-R Int : 228 ms QRS Dur : 104 ms QT Int : 338 ms P-R-T Axes : 64 -69 56 degrees QTcB Int : 399 ms Sinus rhythm with 1st degree A-V block with Premature supraventricular complexes Left axis deviation Left anterior fascicular block Incomplete right bundle branch block Abnormal ECG When compared with ECG of 26-Jan-2025 23:15, (unconfirmed) Premature supraventricular complexes are now Present Confirmed by Rafaela Babb ([facility]) on 01/27/2025 9:46:36 AM Referred By: REFERRED SELF Confirmed By: Rafaela Babb
--- NOTE | 2025-01-27 09:46 | Electrocardiogram Report ---
Test Reason : Blood Pressure : */* mmHG Vent. Rate : 113 BPM Atrial Rate : 113 BPM P-R Int : 238 ms QRS Dur : 96 ms QT Int : 308 ms P-R-T Axes : 54 -78 47 degrees QTcB Int : 422 ms Sinus tachycardia with 1st degree A-V block Left axis deviation Left anterior fascicular block Incomplete right bundle branch block Abnormal ECG When compared with ECG of 27-Dec-2024 21:30, Premature atrial complexes are no longer Present Incomplete right bundle branch block is new Confirmed by Rafaela Babb ([facility]) on 01/27/2025 9:46:07 AM Referred By: REFERRED SELF Confirmed By: Rafaela Babb
[2025-01-27] MEDS: metroNIDAZOLE 500 MG/100 ML BAG IV SCH (09:48)
--- NOTE | 2025-01-27 10:08 | Pulmonary Consultation ---
Date of Consultation January 27, 2025 Assessment & Plan (1) Multifocal pneumonia: (2) COPD with emphysema: (3) Acute hypoxemic respiratory failure: (4) Pulmonary nodule: (5) Dysphagia: Plan Chest x-ray 01/27/2025 personally reviewed: Portable film, good inspiratory effort, bilateral costophrenic and cardiophrenic angles are clean, patchy opacities appreciated in the right upper region as well as retrocardiac on the right, elevation of the right hemidiaphragm CT chest 12/28/2024 personally reviewed: Centrilobular emphysema appreciated bilaterally Minimal bilateral apical pleural scarring Left upper lobe pulmonary nodule Consolidative process appreciated in the right upper lobe Right lower lobe loretta in place Depend atelectasis bilateral lower lobes with some bronchiectasis No significant mediastinal lymphadenopathy 2D echo 09/05/2024: EF 65-70%, grade 1 diastolic dysfunction, severe concentric LVH, moderate aortic root dilatation, RV normal in size and function -- Acute hypoxic respiratory failure Did have pneumonia in the right upper lobe on 12/28/2024 Respiratory BioFire negative for everything on 01/27/25 Nasal MRSA negative Procalcitonin 0.08 -- COPD with emphysema On Wixela 500 as well as Stiolto On montelukast Needs optimization of the inhalers. He cannot be on Stiolto and Wixela. Would recommend either Trelegy or BrezTri on discharge --Multiple pulmonary nodules In someone who has history of smoking Continue with surveillance --History of right lower lobe hematoma S/p resection approximately 15 years ago Plan: Change inhaled bronchodilators to nebulized budesonide and formoterol, continue with Incruse Sputum culture Currently on levofloxacin and Flagyl Repeat CT chest without contrast If the patient has no improvement in the right upper lobe opacity that he will need bronchoscopy I spent more than 75 minutes looking in the chart, images, discussing the plan of care with the patient, RN as well as primary team Please note the above document was generated using voice recognition software. It may contain grammatical, syntax or spelling errors.Any formal questions or concerns about the content, text or information contained within the body of this dictation should be directly addressed to the provider for clarification. History of Present Illness Attending Physician: Gerardo Barragan MD History of Present Illness 79-year-old male presents to the hospital for cough wheezing and dizziness Past medical history: HFpEF, diabetes type 2, hypertension, alcohol use disorder Pulmonary consulted for pneumonia At the time of examination patient was not in any respiratory distress He was saturating 95 to 96% on room air. He stated that he has been having issues with coughing and breathing for approximately a month. He was given antibiotic levofloxacin when he had pneumonia back in December which he completed the course for Does have a feeling of chest congestion and difficulty bringing up the phlegm Denies any dysuria, no diarrhea Does complain of difficulty swallowing liquids. He does cough when he is drinking water. 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 simvastatin Allergy Unknown PT DOESN'T Verified 01/27/25 09:04 REMEMBER REACTION-NAUSEA? diazepam AdvReac Mild lethargy Verified 01/27/25 09:04 losartan AdvReac Mild Dizziness Verified 01/27/25 09:04 Zqqjgox-JCD-YlF Reductase AdvReac Unknown NAUSEA Verified 01/27/25 09:04 Inhibitor [Tppejna-Vgn-Lqs Reductase Inhibitor] Home Medications Medication Instructions Recorded Confirmed Type coenzyme Q10 400 mg capsule 400 mg PO QAM 03/01/21 01/27/25 History loratadine 10 mg tablet (Claritin) 10 mg PO QAM allergies 03/01/21 01/27/25 History montelukast 10 mg tablet 10 mg PO HS 03/01/21 01/27/25 History multivitamin 1 tab PO QAM 03/01/21 01/27/25 History omeprazole 20 mg tablet,delayed 40 mg PO QAM 03/01/21 01/27/25 History release naltrexone 50 mg tablet 50 mg PO HS 11/16/21 01/27/25 History thiamine HCl (vitamin B1) 100 mg 300 mg PO BID 04/28/23 01/27/25 History tablet (Vitamin B-1) lidocaine 5 % topical patch 1 patch topical DAILY PRN Pain 05/02/23 01/27/25 History clotrimazole 1 % topical cream 1 applic topical BID PRN Rash 12/12/23 01/27/25 History fluticasone 500 mcg-salmeterol 50 1 inh inhalation BID 12/12/23 01/27/25 History mcg/dose blistr powdr for inhalation (Wixela Inhub) clindamycin phosphate 1 % topical 1 applic topical BID PRN Breakouts 09/05/24 01/27/25 History solution pregabalin 225 mg capsule 225 mg PO BID 09/05/24 01/27/25 History salicylic acid 3 % shampoo 1 ea topical DAILY 09/05/24 01/27/25 History selenium sulfide 2.5 % lotion 1 applic topical Q OTHER DAY 09/05/24 01/27/25 History terazosin 10 mg capsule 10 mg PO HS 09/05/24 01/27/25 History topiramate 25 mg tablet 25 mg PO BID Migraine Prevention 09/05/24 01/27/25 History vitamin E 268 mg (400 unit) capsule 268 mg PO QAM 09/05/24 01/27/25 History bumetanide 1 mg tablet 1 mg PO QAM #30 tabs 09/07/24 01/27/25 Rx sennosides 8.6 mg tablet (Senokot) 17.2 mg (2 x 8.6 mg) PO HS PRN 09/07/24 01/27/25 Rx constipation #14 tabs carvedilol 12.5 mg tablet 6.25 mg PO BID 11/07/24 01/27/25 History docusate sodium 100 mg capsule 100 mg PO DAILY PRN Constipation 11/07/24 01/27/25 History tiotropium 2.5 mcg-olodaterol 2.5 2 puff inhalation QAM 11/07/24 01/27/25 History mcg/actuation mist for inhalation baclofen 5 mg tablet 5 mg PO DAILY PRN Muscle Spasm 11/23/24 01/27/25 History trospium 20 mg tablet 20 mg PO BID #60 tabs 11/29/24 01/27/25 Rx tirzepatide 5 mg/0.5 mL 5 mg (0.5 mL) subcut Q7D #2 mL 12/20/24 01/27/25 Rx subcutaneous pen injector (Sathish) ezetimibe 10 mg tablet (Zetia) 10 mg PO QAM 12/28/24 01/27/25 History nifedipine 30 mg tablet,extended 30 mg PO DAILY 01/27/25 01/27/25 History release 24 hr omega 1-ejb-uvk-fish oil 900 1 cap PO QID 01/27/25 01/27/25 History mg-1,400 mg capsule,delayed release potassium chloride 20 mEq 10 meq PO DAILY 01/27/25 01/27/25 History tablet,extended release(part/cryst) Patient History Medical History (Updated 01/27/25 @ 13:03 by Kellie Longoria MD, [facility]) Asthma Hypertension History of injury of tendon bicep tear w/ repair History of alcohol withdrawal delirium (2020) Hypotension 02/07/25- states had blood pressure medication adjustment early 12/2023 by pcp; bp meds currently back up to previous dosages. History of pneumonia (2020) Tremor Pulmonary nodule monitoring Peripheral neuropathy Migraine Diabetes diet controlled Arthritis History of prostate cancer (2019) History of COVID-19 2021- no hosp; resolved H/O alcohol dependence has approx 1 drink per month now > "quit in February 2022" Osteoarthritis SOB (shortness of breath) on exertion 02/08/24- recent increase in SOB, nausea and weakness with exertion (home bp reading during episode 112/66) Asthma uses rescue inhaler 1-2 times per week Hyperlipidemia Surgical History History of cataract surgery right Status post lung surgery H/O elbow surgery H/O prostatectomy History of bronchoscopy History of colonoscopy History of surgery on arm LEFT ELBOW-TENDON SURG Fusion of spine CERVICAL > "slightly" limited ROM side to side History of lobectomy of lung RIGHT MIDDLE LOBE-BENIGN Family History Father Diabetes Cardiac disorder Unknown Hypertension Mother Cardiac disorder Social History Smoking Status: Former smoker Tobacco Type: Cigarettes Second Hand Exposure: No; Do You Dip or Chew Tobacco: No; Tobacco Cessation Education Requested by Patient: No Hx Alcohol Use: No Hx Substance Use: No Preferred Language: Romanian Communication Ability: Effective Procurement Assistant Required: No Beliefs That Will Affect Care: None Current Living Situation: Spouse Other Information That Helps Us Care for You: No Feels Safe at Home: Yes Safety Concerns: Feels Safe At This Time Assistive Devices: Cane Review of Systems 2 Review of Systems: All systems reviewed & are unremarkable except as noted in HPI & below Physical Exam 2 Physical Exam: Constitutional: No acute distress HEENT: EOMI, PERRLA Respiratory system: Decreased air entry bilaterally, no wheeze, rhonchi, positive crackles bilaterally more on the right side CVS: S1-S2 positive, positive 2 out of 6 systolic murmur appreciated best at aorta Abdomen: Soft, nontender, nondistended, positive bowel sounds x4 Extremities: +2 pulses bilaterally radialis/ dorsalis pedis, no cyanosis, no edema Neuro: Awake alert oriented x3 Psych: Normal mood and affect G/U: No Carias Skin: no rashes, warm and dry Lymphatic: no cervical or axillary lymphadenopathy Results & Data Results & Data Vital Signs (Past 12 Hours) Vital Signs Temp Pulse Pulse Resp BP BP Pulse Ox 01/27/25 07:12 36.9 C 80 20 109/64 94 01/27/25 06:00 36.6 C 85 16 125/87 94 01/27/25 05:17 01/27/25 05:00 93 H 16 136/82 95 01/27/25 04:51 01/27/25 04:30 85 18 131/86 95 01/27/25 03:22 82 01/27/25 03:04 82 16 127/85 96 01/27/25 02:30 96 H 16 139/99 95 01/27/25 02:18 85 23 123/80 95 01/27/25 02:03 85 19 124/84 91 01/27/25 01:30 36.8 C 81 16 121/75 16 L 01/27/25 01:16 91 H 16 125/83 93 01/27/25 00:31 82 18 121/82 96 01/27/25 00:13 113 H 16 94 01/27/25 00:00 111 H 16 124/84 95 01/26/25 23:30 01/26/25 23:30 115 H 18 128/70 92 01/26/25 23:25 88 L 01/26/25 23:22 111 H 16 103/76 90 01/26/25 23:15 113 H 01/26/25 23:07 36.9 C 97 H 18 124/77 90 Pulse Ox O2 Del Method O2 Del Method O2 Flow Rate O2 Flow Rate 01/27/25 07:12 Nasal Cannula 2 01/27/25 06:00 Nasal Cannula 2 01/27/25 05:17 95 Nasal Cannula 2 01/27/25 05:00 Nasal Cannula 2 01/27/25 04:51 Nasal Cannula 2 01/27/25 04:30 Nasal Cannula 2 01/27/25 03:22 01/27/25 03:04 Nasal Cannula 2 01/27/25 02:30 Nasal Cannula 2 01/27/25 02:18 Nasal Cannula 2 01/27/25 02:03 Nasal Cannula 2 01/27/25 01:30 Nasal Cannula 2 01/27/25 01:16 Nasal Cannula 2 01/27/25 00:31 Nasal Cannula 2 01/27/25 00:13 Nasal Cannula 2 01/27/25 00:00 Nasal Cannula 2 01/26/25 23:30 Nasal Cannula 2 01/26/25 23:30 Nasal Cannula 2 01/26/25 23:25 Room Air, Nasal Cannula 0 01/26/25 23:22 Room Air 01/26/25 23:15 01/26/25 23:07 Room Air Laboratory Results 01/27/25 04:50 01/27/25 04:50 PG Care Time/CCT Total # of Minutes Spent Total Time Spent with Patient: Total time spent is greater than 50% in coordination of care (as documented) at patient's floor/unit and/or counseling patient: Coding Level of Care Code 37112 INT INP/OBS CARE 375MIN Diagnoses Multifocal pneumonia J18.9 COPD with emphysema J43.9 Acute hypoxemic respiratory failure J96.01 Pulmonary nodule R91.1 Dysphagia R13.10
--- NOTE | 2025-01-27 11:36 | CT Scan Report ---
HISTORY: Right upper lobe pneumonia. TECHNIQUE: CT imaging of the chest was performed without IV contrast. Images are presented in axial, sagittal, and coronal reformats. COMPARISON: Chest CT dated 12/28/2024. FINDINGS: Lungs: Groundglass airspace opacity throughout the right upper lobe consistent with pneumonia. Patchy opacity also present in the right middle lobe. Bilateral lower lobe scarring. Nodule in the superior segment of the left lower lobe measuring 0.7 cm in diameter. No pneumothorax or effusion. Central tracheobronchial tree is patent. Heart/Mediastinum: Normal heart size. Coronary artery calcifications are present with multivessel disease. No pericardial effusion. No suspicious mediastinal or hilar lymph nodes. Thoracic esophagus and included thyroid gland are unremarkable. Vasculature: Mildly dilated ascending thoracic aorta measures 4.2 cm in diameter at the level of the right pulmonary artery. Mild atherosclerotic vascular disease of the aorta and arch vessels. Tortuous descending thoracic aorta. Main pulmonary artery is normal in caliber. Soft Tissues: Unremarkable. Upper Abdomen: Left nephrolithiasis. Elevated right hemidiaphragm. Included upper abdomen is otherwise unremarkable. Bones: Degenerative changes of the spine and shoulders. No acute osseous abnormality. IMPRESSION: * Patchy interstitial/groundglass airspace opacity throughout the right upper lobe consistent with pneumonia.This appears increased since the prior study on 12/28/2024. * 0.7 cm pulmonary nodule in the superior segment of the left lower lobe. Follow-up chest CT is recommended in 3 months to ensure stability. * Coronary artery calcifications are present with severe multivessel disease. 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 Follow-up chest CT is recommended in 12 months to ensure stability. * Left nephrolithiasis. * Additional chronic and/or incidental findings as detailed above. ACT 112: Positive. There are findings on this exam that require communication between the performing entity and the patient following Patient Test Result Information Act ([place] ACT 112) guidelines. Electronically signed by Jesus Rivas 01-27-2025 11:17 AM
[2025-01-27] MEDS ORDERED: PHARMACY GLYCEMIC MGMT CONSULT PRN (11:59)
[2025-01-27] MEDS: CEFEPIME 2000MG 2,000 MG/20 ML SYR IV SCH (14:16)
--- NOTE | 2025-01-27 14:29 | Pharmacy Report ---
Pharmacy Glycemic Short Note 2 - Date of Service January 27, 2025 - Glycemic Short BSG Results (Last 24 hours): 01/26/25 01/27/25 01/27/25 23:22 04:50 07:30 Glucose 87 110 H POC Glucose 95 01/27/25 11:23 Glucose POC Glucose 103 H OUTPATIENT ANTIDIABETIC REGIMEN: * n/a HbA1c: 6.6% on 12/28/2024 ASSESSMENT: * Vahe is a 79 year old male admitted today for increasing dizziness and weakness likely due to pneumonia. Pharmacy has been consulted for glycemic management while he is admitted. * BSG on arrival was 95mg/dL and 103mg/dL at lunch. No basal insulin is needed at this time and a very conservative bolus insulin scale was started only utilizing a correction factor. PLAN FOR INPATIENT GLYCEMIC CONTROL: * Basal insulin * None needed * Bolus insulin * NovoLog per scale ACHS or Q6hrs while NPO * Goal Range: Low 110 mg/dL - High 160 mg/dL * Correction Factor: 40 mg/dL/unit * Nutritional / Prandial insulin per carb ratio: NONE
[2025-01-27] MEDS: FORMOTEROL 20 MCG/2 ML VIAL NEB SCH (19:29)
[2025-01-27] MEDS: SODIUM CHLOR 7% 4 ML NEB NEB SCH (19:29)
[2025-01-27] MEDS: BUDESONIDE 0.5 MG/2 ML VIAL (PULMICORT) NEB SCH (19:30)
[2025-01-27] MEDS: TERAZOSIN HCL 5 MG CAP PO SCH (20:19)
[2025-01-27] MEDS: NALTREXONE HCL 50 MG TAB PO SCH (20:19)
[2025-01-28] MEDS ORDERED: levoFLOXacin/D5W 750 MG/150 ML BAG IV SCH (01:00)
[2025-01-28 07:35] LABS: Basophils # (auto) 0.07 K/uL (0.00-0.20); Basophils % (auto) 0.5 %; Eosinophils # (auto) 0.67 K/uL (0.00-0.50); Eosinophils % (auto) 4.7 %; Hematocrit (blood only) 40.3 % (42.0-52.0); Hemoglobin 13.5 g/dl (14.0-18.0); Immature Granulocytes # (auto) 0.05 K/uL (0.01-0.20); Immature Granulocytes % (auto) 0.4 %; Lymphocytes # (auto) 1.55 K/uL (1.20-3.40); Lymphocytes % (auto) 10.9 %; Mean Corpuscular Hemoglobin 29.4 pg (25.0-34.0); Mean Corpuscular Hgb Conc 33.5 g/dL (32.0-36.0); Mean Corpuscular Volume 87.8 fL (80.0-100.0); Mean Platelet Volume 11.6 fL (9.4-12.4); Monocytes % (auto) 9.8 %; Neutrophils # (auto) 10.51 K/uL (1.40-6.50); Neutrophils % (auto) 73.7 %; Platelet Count 161 K/uL (130-400); RDW Coefficient of Variation 15.7 % (11.5-14.5); Red Blood Count 4.59 M/uL (4.70-6.10); White Blood Count 14.25 K/ul (4.8-10.8)
[2025-01-28] MEDS: MONTELUKAST SODIUM 10 MG TABLET PO SCH (07:51)
--- NOTE | 2025-01-28 07:52 | Pharmacy Report ---
Pharmacy Glycemic Sign Off Nt - Date of Service January 28, 2025 - Assessment & Plan ASSESSMENT: * Pharmacy was consulted by Dr Barragan on 01/27 for glycemic control and to write orders per [facility] inpatient glycemic control protocol. * Major changes made by pharmacy to antidiabetic regimen include: * Starting Novolog Correctional insulin only orders * Patient has been receiving/requiring 0 units of insulin per day for adequate glycemic control * BSGs ranging 95- 128 mg/dl * Do not anticipate further changes in patient status that would quickly deteriorate glycemic control * A1c 6.6%, not on any anti-diabetic medications at home PLAN FOR INPATIENT GLYCEMIC CONTROL: No changes needed to current regimen. * Continue NovoLog per scale ACHS/Q6hrs while NPO * Goal range = 110-140 mg/dl * CF = 40 mg/dl/unit * CR = none * Pharmacy is signing off of glycemic consult and will no longer be making adjustments to inpatient regimen. Please feel free to re-consult if needed. Thank you.
[2025-01-28 07:53] LABS: BUN Creatinine Ratio 13.5 (10-20); Calcium 8.8 mg/dl (8.6-10.3); Creatinine Clr Calc Pharmacy 71.1 ml/min; Potassium 3.4 mmol/L (3.5-5.1)
[2025-01-28 08:13] VITALS: RESP 18
--- NOTE | 2025-01-28 09:23 | Hospitalist Progress Note ---
Date of Service January 28, 2025 Assessment & Plan (1) Pneumonia: Plan: -new RLL opacity -pulmonary consult appreciated -abx changed to Cefepime/flagyl -swallow evaluation -bronchoscopy planned for today -supplimental 02 (2) Hypoxia: Plan: -resolving currently on RA (3) Ambulatory dysfunction: Plan: - PT/OT consulted (4) COPD (chronic obstructive pulmonary disease): Plan: - continue home inhalers - DuoNebs as needed (5) Chronic diastolic CHF (congestive heart failure): Plan: - Continue Bumex, carvedilol, magnesium supplement (6) Alcohol use disorder: Plan: Continue naltrexone and thiamine (7) Hypertension: Plan: continue carvedilol and nifedipine Plan Patient is a 79-year-old male with past medical history of HFpEF, COPD, T2DM, history of alcohol use disorder, recurrent pneumonia, bladder and prostate cancer s/p radical prostatectomy. Patient was recently admitted in December with pneumonia suspected to be secondary to aspiration however patient canceled outpatient swallow study; treated with course of Levaquin. Patient returns to the ED this evening due to cough, wheezing, weakness, and dizziness. CXR showed concern for pneumonia. Patient also hypoxic at 88% on room air. VTE ppx: Lovenox 40 mg Q24h Admission and Anticipated Discharge Date Admission Date: January 27, 2025 Subjective No events overnight, pt resting comfortably in bed awaiting bronchoscopy. Review of Systems Review of Systems: CONST: Negative for fever, body aches and chills. HENT: Negative for neck pain/stiffness, headache, congestion, sore throat, swelling. EYES: Negative for discharge/pain or vision changes. RESP: Negative for cough/hemoptysis and shortness of breath. CV: Negative chest pain, difficulty breathing, palpitations. ABD: Negative pain, nausea, vomiting. : Negative increase frequency, dysuria, blood in urine or stool. MUSC: Negative for muscle aches, edema. SKIN: Negative rash, lesions/sores. NEURO: Negative headache, dizziness, weakness. Physical Exam Physical Exam: GENERAL APPEARANCE NAD, activity normal for age, well developed/ well nourished, no cyanosis, pallor, or diaphoresis. EYES lids/conjunctiva normal. EARS/NOSE/THROAT Mucous membranes moist, nares normal, lips/teeth normal uvula midline without oral pharyngeal erythema, exudate or swelling TMs normal bilaterally. No lymphangitis/lymphedema. HEAD/NECK normocephalic atraumatic, no facial trauma, neck is supple. RESPIRATORY respiratory effort normal, speaks in full sentences, no tripod position, no accessory muscle use. Lungs clear to auscultation without rhonchi, wheezes, rales CARDIAC Regular rate and rhythm, no edema. ABDOMINAL Soft, ND/NT. No evidence of fluid wave. No pulsatile masses on exam, rebound tenderness, Combs sign or pain over Mcburney's point. MUSCLES/EXTREMITIES No abnormal range of motion, no swelling. SKIN Warm, pink and dry. No rashes, dermatoses, petechiae or lesions. NEUROLOGICAL Speech is clear and appropriate. Normal level of consciousness. Gait and coordination are normal. 5/5 strength in all extremities. PSYCH Normal mood and affect. Judgement/competence is appropriate Results & Data Results & Data Vital Signs (Past 12 Hours) Vital Signs Temp Pulse Pulse Resp BP BP Pulse Ox 01/28/25 08:12 36.8 C 93 H 18 108/96 93 01/28/25 07:58 01/28/25 07:19 77 01/28/25 07:09 78 16 93 01/28/25 02:44 36.4 C L 77 18 111/71 91 01/27/25 23:01 92 H 01/27/25 22:49 37.2 C 84 18 103/66 91 O2 Del Method O2 Flow Rate 01/28/25 08:12 Room Air 01/28/25 07:58 Room Air 01/28/25 07:19 01/28/25 07:09 Room Air 01/28/25 02:44 Nasal Cannula 1 01/27/25 23:01 01/27/25 22:49 Room Air PG Care Time/CCT Total # of Minutes Spent Total Time Spent with Patient: Total time spent is greater than 50% in coordination of care (as documented) at patient's floor/unit and/or counseling patient: Coding Level of Care Code 91243 SUB INP/OBS CARE 2/35MIN Diagnoses Pneumonia J18.9 Hypoxia R09.02 Ambulatory dysfunction R26.2 COPD (chronic obstructive pulmonary disease) J44.9 Chronic diastolic CHF (congestive heart failure) I50.32 Alcohol use disorder F10.90 Hypertension I10
[2025-01-28] MEDS: AZITHROMYCIN 250 MG TAB PO ONE (11:51)
[2025-01-28 12:13] VITALS: BP 110/61; PULSE 90; TEMP 98.1; O2SAT 92
--- NOTE | 2025-01-28 12:23 | Discharge Summary ---
Discharge Summary Date of Service January 28, 2025 Principal Dx & Hospital Course #1 = Principal Diagnosis (1) Pneumonia: -new RLL opacity -pulmonary consult appreciated -abx changed to Cefepime/flagyl -swallow evaluation -bronchoscopy not needed as per pulmonology -supplimental 02 OK to d/c home on clindamycin/zithromax with prednisone taper (2) Hypoxia: -resolving currently on RA (3) Ambulatory dysfunction: - PT/OT consulted (4) COPD (chronic obstructive pulmonary disease): - continue home inhalers - DuoNebs as needed (5) Chronic diastolic CHF (congestive heart failure): - Continue Bumex, carvedilol, magnesium supplement (6) Alcohol use disorder: Continue naltrexone and thiamine (7) Hypertension: continue carvedilol and nifedipine Plan Patient is a 79-year-old male with past medical history of HFpEF, COPD, T2DM, history of alcohol use disorder, recurrent pneumonia, bladder and prostate cancer s/p radical prostatectomy. Patient was recently admitted in December with pneumonia suspected to be secondary to aspiration however patient canceled ou tpatient swallow study; treated with course of Levaquin. Patient returns to the ED this evening due to cough, wheezing, weakness, and dizziness. CXR showed concern for pneumonia. Patient also hypoxic at 88% on room air. VTE ppx: Lovenox 40 mg Q24h Admission HPI Per Admitting Provider Patient is a 79-year-old male with past medical history of HFpEF, COPD, T2DM, history of alcohol use disorder, recurrent pneumonia. Patient was recently admitted in December with pneumonia suspected to be secondary to aspiration however patient canceled outpatient swallow study; treated with course of Levaquin. Patient returns to the ED this evening due to cough, wheezing, weakness, and dizziness. CXR showed concern for pneumonia. Patient also hypoxic at 88% on room air. Patient seen at bedside. He stated that he came in this evening due to his heart rate bouncing up and down and his oxygen levels being low. Patient also reports ambulatory dysfunction due to weakness stating that he could barely walk this evening due to poor balance, weakness, and dizziness. He has had approximately 20 pound weight loss since starting diuretics in August and recently starting Mounjaro. He feels as though this helps decrease his fluid retention however weight loss may be extreme and contributing to weakness. Patient stated he has had recurrent pneumonia and does endorse probable aspiration as he tends to cough within with liquids. Denies any aspiration with food intake. He completed a course of Levaquin after diagnosis and admission for pneumonia in December, stated symptoms did get better however did not completely go away. He has had the same chest congestion/sputum producing cough for several months. He stated his sputum production is yellow. He feels like his chest is full of liquid and he coughs whenever he takes a deep breath. He also endorses dyspnea on exertion when going up steps, has however has had a decrease in his activity level and was going to start trying to exercise tomorrow. He denies any fevers. Patient was also concerned due to a "twitchy sensation "that he has been having in his bilateral hands on and off for several months. He stated the twitchiness has been present for most of the day today and caused him to spill his ice tea on his lap. Patient follows with hand packer and [facility], Dr[facility] Giordano. He stated that his hand packer stated he does not have COPD, he does have a smoking history and q uit approximately 15 years ago. Patient denies any oxygen use at baseline. He still needs his evening medications, states he has been compliant on home medications. He wishes to be full code however would not want long-term ventilation. He does have an allergy to penicillin, stated he had significant swelling when he was a child, but was too young to remember. Discharge Exam GENERAL APPEARANCE NAD, activity normal for age, well developed/ well nourished, no cyanosis, pallor, or diaphoresis. EYES lids/conjunctiva normal. EARS/NOSE/THROAT Mucous membranes moist, nares normal, lips/teeth normal uvula midline without oral pharyngeal erythema, exudate or swelling TMs normal bilaterally. No lymphangitis/lymphedema. HEAD/NECK normocephalic atraumatic, no facial trauma, neck is supple. RESPIRATORY respiratory effort normal, speaks in full sentences, no tripod position, no accessory muscle use. Lungs clear to auscultation without rhonchi, wheezes, rales CARDIAC Regular rate and rhythm, no edema. ABDOMINAL Soft, ND/NT. No evidence of fluid wave. No pulsatile masses on exam, rebound tenderness, Combs sign or pain over Mcburney's point. MUSCLES/EXTREMITIES No abnormal range of motion, no swelling. SKIN Warm, pink and dry. No rashes, dermatoses, petechiae or lesions. NEUROLOGICAL Speech is clear and appropriate. Normal level of consciousness. Gait and coordination are normal. 5/5 strength in all extremities. PSYCH Normal mood and affect. Judgement/competence is appropriate Discharge Plan Discharge Items Patient Disposition: Home - Self-Care Reason For Visit: ASPIRATION PNEUMONIA,HYPOXIA,AMBULATORY DYSFUNCTIO Discharge Diagnosis: PNA Condition on Discharge: Critical Activity: Resume your previous activity Non-emergency contact: Primary Care Provider Call non-emergency contact if: you have any medication questions Follow-up/Referrals: Dea Waldron PA-C [Primary Care Provider] - Diet: Regular Addtl Attending Provider Instructions: Follow up with PMD in 2 weeks Pending Studies at Discharge: No Stand-Alone Forms: My [employer], Smoking Cessation Medications and DC Order Prescriptions: New azithromycin 250 mg Tablet 250 mg PO QAM Qty: 7 0RF clindamycin HCl 150 mg Capsule 300 mg PO TID Qty: 21 0RF prednisone 10 mg tablet 10 mg PO DIRECTED Qty: 20 0RF Rx Instructions: see taper instructions take 4 tabs for 2 days, then 3 tabs for 2 days then 2 tabs for 2 days then 1 tab for 2 days Continued baclofen 5 mg tablet 5 mg PO DAILY PRN (Reason: Muscle Spasm) Mounjaro 5 mg/0.5 mL pen injector 5 mg subcut Q7D Qty: 2 5RF Rx Instructions: prior approved from 09/07/24-11/07/25Thursdays thiamine HCl (vitamin B1) [Vitamin B-1] 100 mg tablet 300 mg PO BID lidocaine 5 % adhesive patch,medicated 1 patch topical DAILY PRN (Reason: Pain) Patient Comments: 12 hrs on and 12 hrs off Rx Instructions: leave on most painful area for up to 12 hrs naltrexone 50 mg tablet 50 mg PO HS carvedilol 12.5 mg tablet 6.25 mg PO BID docusate sodium 100 mg capsule 100 mg PO DAILY PRN (Reason: Constipation) tiotropium-olodaterol 2.5-2.5 mcg/actuation mist 2 puff inhalation QAM trospium 20 mg tablet 20 mg PO BID Qty: 60 2RF Rx Instructions: administer on an empty stomach multivitamin Tablet 1 tab PO QAM montelukast 10 mg Tablet 10 mg PO HS loratadine [Claritin] 10 mg Tablet 10 mg PO QAM omeprazole 20 mg Tablet,Delayed Release (Dr/Ec) 40 mg PO QAM coenzyme Q10 400 mg Capsule 400 mg PO QAM clotrimazole 1 % Cream 1 applic TOPICAL BID PRN (Reason: Rash) fluticasone propion-salmeterol [Wixela Inhub] 500-50 mcg/dose Blister With Device 1 inh INHALATION BID ezetimibe [Zetia] 10 mg tablet 10 mg PO QAM salicylic acid 3 % Shampoo 1 ea topical DAILY terazosin 10 mg Capsule 10 mg PO HS vitamin E 268 mg (400 unit) Capsule 268 mg PO QAM clindamycin phosphate 1 % Solution 1 applic TOPICAL BID PRN (Reason: Breakouts) pregabalin 225 mg Capsule 225 mg PO BID selenium sulfide 2.5 % Lotion 1 applic TOPICAL Q OTHER DAY topiramate 25 mg tablet 25 mg PO BID Rx Instructions: Take 25mg by mouth BID (currently listed as Active/Suspended on med list from [facility]) bumetanide 1 mg Tablet 1 mg PO QAM Qty: 30 0RF sennosides [Senokot] 8.6 mg Tablet 17.2 mg PO HS PRN (Reason: constipation) Qty: 14 0RF Rx Instructions: Available zsbe-lxu-uybfstt omega 5-acw-emn-fish oil 900-1,400 mg Capsule,Delayed Release(Dr/Ec) 1 cap PO QID nifedipine 30 mg tablet extended release 24hr 30 mg PO DAILY Rx Instructions: Per [facility] this is discontinued, but spouse states still taking. potassium chloride 20 mEq Tablet,Er Particles/Crystals 10 meq PO DAILY Rx Instructions: Per [facility] this is discontinued, spouse states still taking Discharge Orders: Discharge Order (Routine); Ordered 01/28/25 Ordered By: Gerardo Barragan Admission Data Admit Date/Time: 01/27/25 02:57 Attending Provider: Gerardo Barragan Admit Provider: Quan Rivera Primary Care Provider: Dea Waldron Other Providers: Quan Rivera; Kellie Longoria Hospital Stay Data Consultations 01/27/25 02:01 ED Decision to Admit Stat 01/27/25 03:58 Consult Pulmonology Routine Diagnostic Imagining Performed 01/27/25 10:09 CT chest diagnostic wo con Urgent 01/30/25 10:00 FL video swallow Routine Pending Results Patient Have Any Pending Studies at Discharge: No Discharge Instructions Given to Patient (Per Discharging Provider) Follow up with PMD in 2 weeks Total Time Total Time Spent Total Time Spent (In Minutes): 50 Coding Level of Care Code 33609 INP/OBS DISCH >30 MIN Diagnoses Pneumonia J18.9 Hypoxia R09.02 Ambulatory dysfunction R26.2 COPD (chronic obstructive pulmonary disease) J44.9 Chronic diastolic CHF (congestive heart failure) I50.32 Alcohol use disorder F10.90 Hypertension I10
[2025-01-28] MEDS: predniSONE 50 MG TAB PO SCH (12:40)
[2025-01-28] MEDS: CLINDAMYCIN HCL 150 MG CAP PO SCH (12:40)
--- NOTE | 2025-01-28 12:58 | Pulmonology Progress Note ---
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 Respiratory BioFire negative for everything on 01/27/25 Nasal MRSA negative Procalcitonin 0.08 Will hold off on bronchoscopy at this time given improvement in pulmonary status. Will plan for CT thorax w/o contrast in 3 months to evaluate right upper lobe opacities (2) COPD with emphysema: Plan: On Wixela 500 as well as Stiolto Continue budesonide 0.5 nebulized twice daily and formoterol 20 mcg nebulized twice daily while inpatient. Continue Incruse inhaler while inpatient On montelukast. Will continue while inpatient. Follows with the [facility] for [facility] care. Would like to follow with [facility] pulmonary. Needs optimization of the inhalers. He cannot be on Stiolto and Wixela. Would recommend either Trelegy or BrezTri on discharge. (3) Acute hypoxemic respiratory failure: Plan: Improving this am. Now on room air. (4) Pulmonary nodule: Plan: Patient is a former smoker who quit 15 years ago. Reported 37 pack year. Continue with surveillance (5) Dysphagia: Plan: Speech therapy eval (6) Pneumonia: Plan: Will hold off on bronchoscopy at this time given improvement in pulmonary status. Will plan for CT thorax w/o contrast in 3 months to evaluate right upper lobe opacities (7) Hypoxia: Plan: resolving currently on RA (8) Ambulatory dysfunction: (9) COPD (chronic obstructive pulmonary disease): (10) Chronic diastolic CHF (congestive heart failure): Plan: - Continue Bumex, carvedilol, magnesium supplement (11) Alcohol use disorder: Plan I spent 40 minutes reviewing images, labs, speaking with the patient, and updating the primary team and RN. Please note the above document was generated using voice recognition software. It may contain grammatical, syntax or spelling errors.Any formal questions or concerns about the content, text or information contained within the body of this dictation should be directly addressed to the provider for clarification. Admission and Anticipated Discharge Date Admission Date: January 27, 2025 Supervising Physician Co-Signing Physician Notes Patient separately seen and examined from [facility]. Agree with note as above unless otherwise specified: Patient with a history of a nonresolving right upper lobe infiltrate. The consolidative nodular process appears to have improved, but there is extensive groundglass noted in the right upper lobe. 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 He is unaware of whether he was tested for TB in the past. QuantiFERON gold sent. Clinically he is improving significantly. Patient can be discharged home today from a pulmonary perspective on clindamycin and azithromycin. Repeat CT in about 3 months. Should he have a decline in his clinical status in the next month or so, will strongly consider bronchoscopy. If his QuantiFERON gold turns out positive, we will need to obtain AFB sputum cultures or obtain cultures via bronchoscopy. Subjective No events overnight. Patient on room air ambulating in room without assitance. Review of Systems 2 Review of Systems: CONST: Negative for fever, body aches and chills. HENT: Negative for neck pain/stiffness, headache, congestion, sore throat, swelling. EYES: Negative for discharge/pain or vision changes. RESP: Negative for cough/hemoptysis and shortness of breath. CV: Negative chest pain, difficulty breathing, palpitations. ABD: Negative pain, nausea, vomiting. : Negative increase frequency, dysuria, blood in urine or stool. MUSC: Negative for muscle aches, edema. SKIN: Negative rash, lesions/sores. NEURO: Negative headache, dizziness, weakness. Physical Exam 2 Physical Exam: GENERAL APPEARANCE NAD, activity normal for age, well developed/ well nourished, no cyanosis, pallor, or diaphoresis. EYES lids/conjunctiva normal. EARS/NOSE/THROAT Mucous membranes moist, nares normal, lips/teeth normal uvula midline without oral pharyngeal erythema, exudate or swelling TMs normal bilaterally. No lymphangitis/lymphedema. HEAD/NECK normocephalic atraumatic, no facial trauma, neck is supple. RESPIRATORY respiratory effort normal, speaks in full sentences, no tripod position, no accessory muscle use. Lungs clear to auscultation bilaterally without rhonchi, wheezes, rales CARDIAC Regular rate and rhythm, no edema. ABDOMINAL Soft, ND/NT. Normoactive bowel sounds in all qaudrants. MUSCLES/EXTREMITIES No abnormal range of motion, no swelling. SKIN Warm, pink and dry. No rashes, dermatoses, petechiae or lesions. NEUROLOGICAL Speech is clear and appropriate. Normal level of consciousness. Gait and coordination are normal. Ambulating with cane. 5/5 strength in all extremities. PSYCH Normal mood and affect. Judgement/competence is appropriate Results & Data Results & Data Vital Signs (Past 12 Hours) Vital Signs Temp Pulse Pulse Resp BP BP Pulse Ox 01/28/25 12:12 36.7 C 90 18 110/61 92 01/28/25 08:12 36.8 C 93 H 18 108/96 93 01/28/25 07:58 01/28/25 07:19 77 01/28/25 07:09 78 16 93 01/28/25 02:44 36.4 C L 77 18 111/71 91 O2 Del Method O2 Flow Rate 01/28/25 12:12 Room Air 01/28/25 08:12 Room Air 01/28/25 07:58 Room Air 01/28/25 07:19 01/28/25 07:09 Room Air 01/28/25 02:44 Nasal Cannula 1 Laboratory Results 01/28/25 07:08 01/28/25 07:[address] Thorax w/o contrast 01/27/2025 @ 1053 IMPRESSION: * Patchy interstitial/groundglass airspace opacity throughout the right upper lobe consistent with pneumonia.This appears increased since the prior study on 12/28/2024. * 0.7 cm pulmonary nodule in the superior segment of the left lower lobe. Follow-up chest CT is recommended in 3 months to ensure stability. * Coronary artery calcifications are present with severe multivessel disease. 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 Follow-up chest CT is recommended in 12 months to ensure stability. * Left nephrolithiasis. * Additional chronic and/or incidental findings as detailed above. Chest X-ray 01/27/2025 @ 0123 IMPRESSION: * Haziness/infiltrates in right perihilar region and mid lower zone, likely due to pulmonary infection, with no gross interval change. * Redemonstration of bilateral hilar perihilar vascular congestion with no gross change. * Redemonstration of elevated right hemidiaphragm with no gross change. * Right costophrenic angle is shallow, may be due to overlying rib shadow. If clinically required ultrasound may be obtained. * Possible trace pleural effusion bilaterally in prior CT. * No other significant interval changes. Medications Administered Home Medications Medication Instructions Recorded Confirmed Last Taken coenzyme Q10 400 mg capsule 400 mg PO QAM 03/01/21 01/27/25 12/27/24 loratadine 10 mg tablet (Claritin) 10 mg PO QAM allergies 03/01/21 01/27/25 12/27/24 montelukast 10 mg tablet 10 mg PO HS 03/01/21 01/27/25 12/26/24 multivitamin 1 tab PO QAM 03/01/21 01/27/25 12/27/24 omeprazole 20 mg tablet,delayed 40 mg PO QAM 03/01/21 01/27/25 12/27/24 release naltrexone 50 mg tablet 50 mg PO HS 11/16/21 01/27/25 12/26/24 thiamine HCl (vitamin B1) 100 mg 300 mg PO BID 04/28/23 01/27/25 12/27/24 tablet (Vitamin B-1) AM lidocaine 5 % topical patch 1 patch topical DAILY PRN Pain 05/02/23 01/27/25 09/04/24 clotrimazole 1 % topical cream 1 applic topical BID PRN Rash 12/12/23 01/27/25 02/26/24 fluticasone 500 mcg-salmeterol 50 1 inh inhalation BID 12/12/23 01/27/25 12/27/24 mcg/dose blistr powdr for AM inhalation (Wixela Inhub) clindamycin phosphate 1 % topical 1 applic topical BID PRN Breakouts 09/05/24 01/27/25 Unknown solution pregabalin 225 mg capsule 225 mg PO BID 09/05/24 01/27/25 12/27/24 AM salicylic acid 3 % shampoo 1 ea topical DAILY 09/05/24 01/27/25 09/04/24 selenium sulfide 2.5 % lotion 1 applic topical Q OTHER DAY 09/05/24 01/27/25 Unknown terazosin 10 mg capsule 10 mg PO HS 09/05/24 01/27/25 12/26/24 topiramate 25 mg tablet 25 mg PO BID Migraine Prevention 09/05/24 01/27/25 12/27/24 AM vitamin E 268 mg (400 unit) capsule 268 mg PO QAM 09/05/24 01/27/25 12/27/24 bumetanide 1 mg tablet 1 mg PO QAM #30 tabs 09/07/24 01/27/25 12/27/24 sennosides 8.6 mg tablet (Senokot) 17.2 mg (2 x 8.6 mg) PO HS PRN 09/07/24 01/27/25 Unknown constipation #14 tabs carvedilol 12.5 mg tablet 6.25 mg PO BID 11/07/24 01/27/25 12/27/24 AM docusate sodium 100 mg capsule 100 mg PO DAILY PRN Constipation 11/07/24 01/27/25 12/27/24 tiotropium 2.5 mcg-olodaterol 2.5 2 puff inhalation QAM 11/07/24 01/27/25 12/27/24 mcg/actuation mist for inhalation baclofen 5 mg tablet 5 mg PO DAILY PRN Muscle Spasm 11/23/24 01/27/25 Unknown trospium 20 mg tablet 20 mg PO BID #60 tabs 11/29/24 01/27/25 12/27/24 AM tirzepatide 5 mg/0.5 mL 5 mg (0.5 mL) subcut Q7D #2 mL 12/20/24 01/27/25 12/20/24 subcutaneous pen injector (Sathish) ezetimibe 10 mg tablet (Zetia) 10 mg PO QAM 12/28/24 01/27/25 12/27/24 nifedipine 30 mg tablet,extended 30 mg PO DAILY 01/27/25 01/27/25 Unknown release 24 hr omega 3-jse-oad-fish oil 900 1 cap PO QID 01/27/25 01/27/25 Unknown mg-1,400 mg capsule,delayed release potassium chloride 20 mEq 10 meq PO DAILY 01/27/25 01/27/25 Unknown tablet,extended release(part/cryst) azithromycin 250 mg tablet 250 mg PO QAM #7 tabs 01/28/25 Unknown clindamycin HCl 150 mg capsule 300 mg (2 x 150 mg) PO TID #21 caps 01/28/25 Unknown prednisone 10 mg tablet 10 mg PO DIRECTED #20 tabs 01/28/25 Unknown Active Medications Generic Name Dose Route Start Last Admin Trade Name Freq PRN Reason Stop Dose Admin Budesonide 0.5 mg 01/27/25 19:00 01/28/25 07:08 Budesonide 0.5 Mg/2 Ml Vial (Pulmicort) BANNER 02/26/25 18:59 0.5 mg BIDR JOSHUA Administration Bumetanide 1 mg 01/27/25 09:00 01/28/25 07:50 Bumetanide 1 Mg Tab PO 02/26/25 08:59 1 mg QAM JOSHUA Administration Carvedilol 12.5 mg 01/27/25 09:00 01/28/25 07:51 Carvedilol 12.5 Mg Tab PO 02/26/25 08:59 12.5 mg BID JOSHUA Administration Clindamycin HCl 300 mg 01/28/25 14:00 01/28/25 12:40 Clindamycin Hcl 150 Mg Cap PO 02/02/25 13:59 300 mg TID JOSHUA Administration Ezetimibe 10 mg 01/27/25 09:00 01/28/25 07:52 Ezetimibe 10 Mg Tab PO 02/26/25 08:59 10 mg QAM JOSHUA Administration Enoxaparin Sodium 40 mg 01/27/25 09:00 01/27/25 08:55 Enoxaparin Inj 40 Mg/0.4 Ml Syr SQ 02/26/25 08:59 40 mg Q24H JOSHUA Administration Formoterol Fumarate 20 mcg 01/27/25 19:00 01/28/25 07:08 Formoterol 20 Mcg/2 Ml Vial BANNER 02/26/25 18:59 20 mcg BIDR JOSHUA Administration Insulin Aspart 0 units 01/27/25 07:30 01/28/25 12:12 Insulin Aspart Per Unit Charge SC 02/26/25 07:29 Not Given ACHS JOSHUA Magnesium Oxide 400 mg 01/27/25 09:00 01/28/25 07:50 Magnesium Oxide 400 Mg Tab PO 02/26/25 08:59 400 mg QAM JOSHUA Administration Montelukast Sodium 10 mg 01/28/25 09:00 01/28/25 07:51 Montelukast Sodium 10 Mg Tablet PO 02/27/25 08:59 10 mg DAILY JOSHUA Administration Multivitamins 1 tab 01/27/25 09:00 01/28/25 07:50 Multivitamin Tab PO 02/26/25 08:59 1 tab QAM JOSHUA Administration Naltrexone HCl 50 mg 01/27/25 21:00 01/27/25 20:19 Naltrexone Hcl 50 Mg Tab PO 02/26/25 20:59 50 mg HS JOSHUA Administration Nifedipine 30 mg 01/27/25 09:00 01/28/25 07:52 Nifedipine Extended Rel 30 Mg Tabcr PO 02/26/25 08:59 30 mg QAM JOSHUA Administration Oxybutynin Chloride 5 mg 01/27/25 09:00 01/28/25 07:50 Oxybutynin Chloride Xl 5 Mg Tabcr PO 02/26/25 08:59 5 mg DAILY JOSHUA Administration Pantoprazole Sodium 40 mg 01/27/25 09:00 01/28/25 07:52 Pantoprazole 40 Mg Tab PO 02/26/25 08:59 40 mg QAM JOSHUA Administration Potassium Chloride 20 meq 01/27/25 09:00 01/28/25 07:50 Potassium Chloride 10 Meq Tabcr PO 02/26/25 08:59 20 meq QAM JOSHUA Administration Prednisone 50 mg 01/28/25 12:00 01/28/25 12:40 Prednisone 50 Mg Tab PO 01/30/25 12:00 50 mg DAILY JOSHUA Administration Pregabalin 225 mg 01/27/25 09:00 01/28/25 08:02 Pregabalin 75 Mg Cap PO 02/26/25 08:59 225 mg BID JOSHUA Administration Sodium Chloride 4 ml 01/27/25 19:00 01/28/25 07:09 Sodium Chlor 7% 4 Ml Neb NEB 02/26/25 18:59 4 ml BIDR JOSHUA Administration Terazosin HCl 10 mg 01/27/25 21:00 01/27/25 20:19 Terazosin Hcl 5 Mg Cap PO 02/26/25 20:59 10 mg HS JOSHUA Administration Thiamine HCl 300 mg 01/27/25 09:00 01/28/25 07:51 Thiamine Hcl 100 Mg Tab PO 02/26/25 08:59 300 mg BID JOSHUA Administration Topiramate 25 mg 01/27/25 09:00 01/28/25 07:52 Topiramate 25 Mg Tab PO 02/26/25 08:59 25 mg BID JOSHUA Administration Umeclidinium Hoffman 1 puffs 01/27/25 09:00 01/28/25 09:38 Umeclidinium Hoffman 62.5mcg/Blister 7 Puffs/Inhaler INH 02/26/25 08:59 1 puffs DAILY JOSHUA Administration PG Care Time/CCT Total # of Minutes Spent Total Time Spent with Patient: Total time spent is greater than 50% in coordination of care (as documented) at patient's floor/unit and/or counseling patient: Coding Level of Care Code 49909 SUB INP/OBS CARE 2/35MIN Medical Decision Making Moderate Complexity Diagnoses Multifocal pneumonia J18.9 COPD with emphysema J43.9 Acute hypoxemic respiratory failure J96.01 Pulmonary nodule R91.1 Dysphagia R13.10 Pneumonia J18.9 Hypoxia R09.02 Ambulatory dysfunction R26.2 COPD (chronic obstructive pulmonary disease) J44.9 Chronic diastolic CHF (congestive heart failure) I50.32 Alcohol use disorder F10.90 Time Spent (min) 40
[2025-01-29] MEDS ORDERED: AZITHROMYCIN 250 MG TAB PO SCH ×2 (09:00)
[2025-01-30 12:58] LABS: Quantiferon Mitogen-NIL 8.85 IU/mL; Quantiferon NIL 0.02 IU/mL; Quantiferon TB Gold Plus NEGATIVE (NEGATIVE); Quantiferon TB2-NIL 0.02 IU/mL
== END 2025-01-28 15:16 | disposition home or self-care (01) | DRG 194 ==
LOC: SUATTDRO → ED 23:04 → EDINP 01-27 02:57 → SUATTDRO 01-27 02:57 → 2N 01-27 12:43

== ENCOUNTER 2025-09-02 10:03 | Inpatient (IN) ==
--- NOTE | 2025-09-02 10:13 | Emergency Department Note ---
Impression & Plan AMS (altered mental status), Acute hypoxemic respiratory failure, Abdominal pain, Sepsis, Elevated procalcitonin, KIM (acute kidney injury) ED Provider Note HISTORY OF PRESENT ILLNESS: Patient is a 79-year-old male presenting with altered mental status. Patient presents with EMS. They report that they were called to the patient's house by who stated the patient was altered. He was hypotensive and hypoxic for EMS. He received a total of 1 L normal saline and route and received 1 g of Tylenol for a fever of 102. Patient is complaining of diffuse abdominal pain. He is alert to self only. No reported dysuria or hematuria. He denies any chest pain or shortness of breath ROS: as above PHYSICAL EXAM: Constitutional: Patient appears in no acute distress. HENT: Head: Normocephalic and atraumatic. Eyes: EOMI, PERRL Mouth/Throat: Mucous membranes moist. Neck: Trachea midline. Neck supple. Cardiovascular: Tachycardic with regular rhythm. No murmurs, rubs or gallops. Intact distal pulses. Pulmonary/Chest: No respiratory distress. Breath sounds clear and equal bilaterally. No wheezes or rales. Abdominal: Abdomen soft, no rebound or guarding. Diffuse TTP Musculoskeletal: No edema, tenderness or deformity noted. Skin: Warm and dry. No rash, erythema, pallor or cyanosis Psychiatric: Appropriate mood and affect for situation. Neurological: Alert. CN II-XII grossly intact, moving all extremities equally and fully. MDM: - Vitals signs showed hypoxia, tachycardia and hypotension. - Bedside [id number] ultrasound FAST exam performed by myself was negative for any free fluid in the abdomen, per my interpretation. - History obtained via EMS, given patient's confusion. History as above. - Chronic conditions affecting care: DM-2; HLD; HTN; CHF; COPD - Differential diagnoses include, but are not limited to: pneumonia; UTI; viral syndrome; ACS; dehydration; electrolyte abnormality; bowel obstruction - Order placed for continuous cardiac monitoring. At this time, monitor showed rate of 117 bpm with normal sinus rhythm, per my interpretation. - External medical records reviewed. Diabetes visit note dated 08/12/2025 was reviewed. Patient follows in their clinic for his type 2 diabetes. He is on Mounjaro 7.5 mg. - EKG image interpreted by myself showed normal sinus rhythm. Rate 89 bpm. QT 366. No acute ischemic changes. - Laboratory workup interpreted by myself showed normal WBC; stable electrolytes; KIM (Cr 1.45); normal lactic acid; elevated procalcitonin (18.40) - CXR image reviewed interpreted by myself was negative for pneumonia, per my interpretation. - Patient given an additional 1.5L NS in ER. Patient has received a total of 2.5L NS (1L pre hospital and 1.5L in ER). Patient's sepsis fluid volume calculation based on ideal body weight is 2263.50 mL. - CT chest PE negative for PE or obvious consolidation to suggest pneumonia. - CT abdomen/pelvis with IV contrast showed circumferential wall thickening of the mid to distal descending proximal to mid sigmoid colon concerning for nonspecific colitis or potential ischemic colitis. However, patient has normal lactate. - Temperature sensing rae ordered - Blood cultures obtained - Started empirically on IV vancomycin. - VBG shows slight acidosis. - COVID/flu/RSV negative - Unclear source for patient's sepsis. Patient's blood pressure initially slightly responsive to fluid resuscitation. However, his blood pressures did remain slightly hypotensive after his full 2.5 L and his heart rate remained in the 115 to 120 bpm range. He was started on peripheral Levophed for further blood pressure support. - Discussion was had with therapeutic case manager about patient's case and need for admission - Hospitalist consulted for admission - Patient admitted to [facility] for further evaluation and management. I have personally spent 61 minutes of critical care time in the direct management of this patient. This includes bedside care, interpretation of diagnostic studies, and testing, discussion with consultants, patient, and family members, and other required patient management activities. This 61 minutes is in excess of all separately billable procedures. ASSESSMENT AND PLAN: Diagnosis: altered mental status; acute hypoxic respiratory failure; abdominal pain; sepsis; elevated procalcitonin; KIM Plan: Admit Past Med/Surg History Problem List (Updated 09/02/25 @ 12:35 by Aixa Neal MD) KIM (acute kidney injury) (Acute) Elevated procalcitonin (Acute) Sepsis (Acute) Abdominal pain (Acute) Acute hypoxemic respiratory failure (Acute) AMS (altered mental status) (Acute) Chronic bronchitis Peripheral arterial disease Back pain at L4-L5 level Facet arthropathy, lumbar LINDSAY (obstructive sleep apnea) Ex-smoker Multiple pulmonary nodules Exertional dyspnea Abnormal chest CT Cardiomyopathy Pneumonia (Acute) Hypoxia (Acute) Dysphagia COPD with emphysema Multifocal pneumonia COPD (chronic obstructive pulmonary disease) Ambulatory dysfunction Pneumonia Hypoxia Lumbar stenosis with neurogenic claudication Thoracic aortic aneurysm (TAA) Atherogenic dyslipidemia Left ventricular hypertrophy Analgesic rebound headache Tension type headache Lumbar sprain Left lower lobe pneumonia (Acute) Shortness of breath (Acute) Acute hypoxemic respiratory failure (Acute) Chronic diastolic CHF (congestive heart failure) Hospital-acquired pneumonia Hypertensive urgency Acute hypoxemic respiratory failure (Acute) Acute exacerbation of CHF (congestive heart failure) (Acute) Hypertensive emergency (Acute) Daily urinary incontinence Gait apraxia Cerebral ventriculomegaly Rupture of left proximal biceps tendon with repair Subjective memory complaints Prostate cancer Urinary urgency H/O alcohol dependence Elevated CPK Muscle cramp Lumbosacral radiculopathy Idiopathic polyneuropathy Alcohol use disorder Pulmonary nodule Delirium tremens Confusion (Acute) Pneumonia Ataxia Mixed headache Memory loss Hypercholesteremia (Chronic) Bladder neoplasm (Acute) Cervical stenosis of spine (Acute) Arthritis (Chronic) Cognitive complaints (Acute) Common migraine without aura (Chronic) Lumbar radiculopathy (Chronic) Peripheral neuropathy (Chronic) Tremor (Chronic) Type 2 diabetes mellitus (Chronic) diet controlled per pt Migraine Diabetes (Chronic) Medical History Asthma Hypertension History of injury of tendon bicep tear w/ repair History of alcohol withdrawal delirium (2020) Hypotension 02/07/25- states had blood pressure medication adjustment early 12/2023 by pcp; bp meds currently back up to previous dosages. History of pneumonia (2020) Tremor Pulmonary nodule monitoring Peripheral neuropathy Migraine Diabetes diet controlled Arthritis History of prostate cancer (2019) History of COVID-2021- no hosp; resolved H/O alcohol dependence has approx 1 drink per month now > "quit in February 2022" Osteoarthritis SOB (shortness of breath) on exertion 02/08/24- recent increase in SOB, nausea and weakness with exertion (home bp reading during episode 112/66) Asthma uses rescue inhaler 1-2 times per week Hyperlipidemia Surgical History History of cataract surgery right Status post lung surgery H/O elbow surgery H/O prostatectomy History of bronchoscopy History of colonoscopy History of surgery on arm LEFT ELBOW-TENDON SURG Fusion of spine CERVICAL > "slightly" limited ROM side to side History of lobectomy of lung RIGHT MIDDLE LOBE-BENIGN Family History Father Diabetes Cardiac disorder Unknown Hypertension Mother Cardiac disorder Social History Smoking Status: Former smoker Tobacco Type: Cigarettes, Pipe and Cigars Age Started Using Tobacco: 20; Age Quit Using Tobacco: 61; Second Hand Exposure: No; Do You Dip or Chew Tobacco: No; Hx Alcohol Use: No Hx Substance Use: No Preferred Language: Bahraini Communication Ability: Effective Zinc Miner Required: No Beliefs That Will Affect Care: None Current Living Situation: Spouse Feels Safe at Home: Yes Assistive Devices: Walker Allergies Allergies Allergy/AdvReac Type Severity Reaction Status Date / Time Penicillins Allergy Severe SWELLING, Verified 08/12/25 14:57 TROUBLE BREATHING fluvastatin [From Lescol] Allergy Unknown Unknown Verified 08/12/25 14:57 lisinopril Allergy Unknown Unknown Verified 08/12/25 14:57 lovastatin Allergy Unknown PT DOESN'T Verified 08/12/25 14:57 REMEMBER REACTION-NAUSEA? simvastatin Allergy Unknown PT DOESN'T Verified 08/12/25 14:57 REMEMBER REACTION-NAUSEA? diazepam AdvReac Mild lethargy Verified 08/12/25 14:57 losartan AdvReac Mild Dizziness Verified 08/12/25 14:57 [id number] Reductase AdvReac Unknown NAUSEA Verified 08/12/25 14:57 Inhibitor [[id number] Reductase Inhibitor] Home Meds Home Medications Medication Instructions Recorded Confirmed loratadine 10 mg tablet (Claritin) 10 mg PO QAM allergies 03/01/21 09/02/25 multivitamin 1 tab PO QAM 03/01/21 09/02/25 omeprazole 20 mg tablet,delayed 40 mg PO QAM 03/01/21 09/02/25 release naltrexone 50 mg tablet 50 mg PO HS 11/16/21 09/02/25 thiamine HCl (vitamin B1) 100 mg 300 mg PO BID 04/28/23 09/02/25 tablet (Vitamin B-1) lidocaine 5 % topical patch 1 patch topical DAILY PRN Pain 05/02/23 09/02/25 clotrimazole 1 % topical cream 1 applic topical BID PRN Rash 12/12/23 09/02/25 clindamycin phosphate 1 % topical 1 applic topical BID PRN Breakouts 09/05/24 09/02/25 solution pregabalin 225 mg capsule 225 mg PO BID 09/05/24 09/02/25 terazosin 10 mg capsule 10 mg PO HS 09/05/24 09/02/25 topiramate 25 mg tablet 25 mg PO BID Migraine Prevention 09/05/24 09/02/25 vitamin E 268 mg (400 unit) capsule 268 mg PO QAM 09/05/24 09/02/25 baclofen 5 mg tablet 5 mg PO DAILY PRN Muscle Spasm 11/23/24 09/02/25 ezetimibe 10 mg tablet (Zetia) 10 mg PO QAM 12/28/24 09/02/25 bumetanide 1 mg tablet 2 mg PO QAM 08/12/25 09/02/25 carvedilol 12.5 mg tablet (Coreg) 12.5 mg PO BID 08/12/25 09/02/25 cholecalciferol (vitamin D3) 10 10 mcg PO DAILY 08/12/25 09/02/25 mcg (400 unit) capsule omega 4-lhh-sel-fish oil 900 1 cap PO BID 08/12/25 09/02/25 mg-1,400 mg capsule,delayed release potassium chloride 20 mEq 10 meq PO DAILY 08/12/25 09/02/25 tablet,extended release(part/cryst) salicylic acid 3 % shampoo 1 ea topical DAILY PRN Other 08/12/25 09/02/25 selenium sulfide 2.5 % lotion 1 applic topical Q OTHER DAY PRN 08/12/25 09/02/25 Other sennosides 8.6 mg tablet (Senokot) 17.2 mg PO HS PRN constipation 08/12/25 09/02/25 tiotropium 2.5 mcg-olodaterol 2.5 2 puff inhalation QAM 08/12/25 09/02/25 mcg/actuation mist for inhalation Previous Rx's Medication Instructions Recorded montelukast 10 mg tablet 10 mg PO HS #90 tabs 05/30/25 trospium 60 mg capsule,extended 60 mg PO DAILY #30 caps 06/04/25 release 24 hr tirzepatide 7.5 mg/0.5 mL 7.5 mg (0.5 mL) subcut Q7D #6 mL 08/21/25 subcutaneous pen injector (Sathish) Results & Data (ED) Vital Signs Vital Signs - 24 hr 09/02/25 10:17 09/02/25 10:18 09/02/25 10:30 Temperature 36.6 C Temperature Source Oral Pulse Rate 120 H 117 H Pulse Rate [Apical] 120 H Pulse Rhythm Regular Pulse Rhythm [Apical] Regular Respiratory Rate 20 20 Respiratory Effort / Characteristics Non-Labored Spontaneous Non-Labored Spontaneous Respiratory Depth Normal Normal Respiratory Pattern Regular Regular Blood Pressure Blood Pressure [Right Arm] 70/54 L Blood Pressure Mean Blood Pressure Mean [Right Arm] 59 Blood Pressure Position [Right Arm] Lying Pulse Oximetry 93 91 Oxygen Delivery Method Nasal Cannula Oxymask Oxygen Flow Rate 4 3 Sepsis Recent Fever Within 48 Hours Yes Sepsis New/Unexplained Change in Mental Status Yes Sepsis Action Taken by Nursing Physician Notified 09/02/25 10:41 09/02/25 10:45 09/02/25 10:50 Temperature Temperature Source Pulse Rate 120 H 116 H 116 H Pulse Rate [Apical] Pulse Rhythm Pulse Rhythm [Apical] Respiratory Rate 18 17 16 Respiratory Effort / Characteristics Respiratory Depth Respiratory Pattern Blood Pressure 84/57 L 106/63 101/66 Blood Pressure [Right Arm] Blood Pressure Mean 60 80 81 Blood Pressure Mean [Right Arm] Blood Pressure Position [Right Arm] Pulse Oximetry 91 94 95 Oxygen Delivery Method Oxymask Oxymask Oxymask Oxygen Flow Rate 4 4 3 Sepsis Recent Fever Within 48 Hours Sepsis New/Unexplained Change in Mental Status Sepsis Action Taken by Nursing 09/02/25 10:55 09/02/25 11:00 09/02/25 11:05 Temperature Temperature Source Pulse Rate 89 115 H 90 Pulse Rate [Apical] Pulse Rhythm Pulse Rhythm [Apical] Respiratory Rate 15 15 15 Respiratory Effort / Characteristics Respiratory Depth Respiratory Pattern Blood Pressure 93/67 L 95/62 L 95/60 L Blood Pressure [Right Arm] Blood Pressure Mean 77 76 73 Blood Pressure Mean [Right Arm] Blood Pressure Position [Right Arm] Pulse Oximetry 95 95 96 Oxygen Delivery Method Oxymask Oxymask Oxymask Oxygen Flow Rate 3 3 Sepsis Recent Fever Within 48 Hours Sepsis New/Unexplained Change in Mental Status Sepsis Action Taken by Nursing 09/02/25 11:10 09/02/25 11:15 09/02/25 11:15 Temperature Temperature Source Pulse Rate 90 114 H 115 H Pulse Rate [Apical] Pulse Rhythm Pulse Rhythm [Apical] Respiratory Rate 15 15 15 Respiratory Effort / Characteristics Respiratory Depth Respiratory Pattern Blood Pressure 96/64 L 103/78 103/78 Blood Pressure [Right Arm] Blood Pressure Mean 80 87 87 Blood Pressure Mean [Right Arm] Blood Pressure Position [Right Arm] Pulse Oximetry 96 96 96 Oxygen Delivery Method Oxymask Oxymask Oxymask Oxygen Flow Rate 3 3 3 Sepsis Recent Fever Within 48 Hours Sepsis New/Unexplained Change in Mental Status Sepsis Action Taken by Nursing 09/02/25 11:20 09/02/25 11:30 09/02/25 11:35 Temperature Temperature Source Pulse Rate 115 H 116 H 116 H Pulse Rate [Apical] Pulse Rhythm Pulse Rhythm [Apical] Respiratory Rate 14 15 15 Respiratory Effort / Characteristics Respiratory Depth Respiratory Pattern Blood Pressure 108/78 99/74 L 110/76 Blood Pressure [Right Arm] Blood Pressure Mean 91 80 97 Blood Pressure Mean [Right Arm] Blood Pressure Position [Right Arm] Pulse Oximetry 96 95 95 Oxygen Delivery Method Oxymask Oxymask Oxymask Oxygen Flow Rate 3 3 3 Sepsis Recent Fever Within 48 Hours Sepsis New/Unexplained Change in Mental Status Sepsis Action Taken by Nursing 09/02/25 11:40 09/02/25 11:45 09/02/25 11:50 Temperature Temperature Source Pulse Rate 117 H 117 H 117 H Pulse Rate [Apical] Pulse Rhythm Pulse Rhythm [Apical] Respiratory Rate 15 16 17 Respiratory Effort / Characteristics Respiratory Depth Respiratory Pattern Blood Pressure 100/70 108/79 94/75 L Blood Pressure [Right Arm] Blood Pressure Mean 83 91 81 Blood Pressure Mean [Right Arm] Blood Pressure Position [Right Arm] Pulse Oximetry 95 94 95 Oxygen Delivery Method Oxymask Oxymask Oxymask Oxygen Flow Rate 3 3 Sepsis Recent Fever Within 48 Hours Sepsis New/Unexplained Change in Mental Status Sepsis Action Taken by Nursing Laboratory Data 09/02/25 10:14 09/02/25 10:14 Lab Results 09/02/25 09/02/25 09/02/25 Range/Units 10:14 10:18 10:19 WBC 9.58 (4.8-10.8) K/ul RBC 5.09 (4.70-6.10) M/uL Hgb 15.0 (14.0-18.0) g/dL POC Hgb 14.6 (14.0-18.0) g/dl Hct 44.1 (42.0-52.0) % POC Hct 43 (42-52) % MCV 86.6 (80.0-100.0) fL MCH 29.5 (25.0-34.0) pg MCHC 34.0 (32.0-36.0) g/dL RDW Std Deviation 46.3 (36.4-46.3) fL RDW Coeff of Roni 14.6 H (11.5-14.5) % Plt Count 198 (130-400) K/uL MPV 11.2 (9.4-12.4) fL Immature Gran % (Auto) 0.5 % Neut % (Auto) 83.7 % Lymph % (Auto) 4.8 % [place] % (Auto) 10.4 % Eos % (Auto) 0.3 % Baso % (Auto) 0.3 % Neut # (Auto) 8.01 H (1.40-6.50) K/uL Lymph # (Auto) 0.46 L (1.20-3.40) K/uL [place] # (Auto) 1.00 H (0.11-0.59) K/uL Eos # (Auto) 0.03 (0.00-0.50) K/uL Baso # (Auto) 0.03 (0.00-0.20) K/uL Immature Gran # (Auto) 0.05 (0.01-0.20) K/uL VBG pH (7.36-7.41) VBG pCO2 (38-50) mmHg VBG pO2 mmHg VBG HCO3 mmol/L VBG O2 Saturation % VBG Base Excess mEq/L POC Sodium 142 (135-144) mmol/L Sodium 142 (136-145) mmol/L POC Potassium 3.6 (3.3-5.0) mmol/L Potassium 3.7 (3.5-5.1) mmol/L POC Chloride 105 (101-112) mmol/L Chloride 108 H (98-107) mmol/L Carbon Dioxide 25 (21-32) mmol/L POC Total CO2 21 L (24-31) mmol/L Anion Gap 9 (3-11) POC Anion Gap 20.0 (16-25) mmol/L POC BUN 29 H (7-18) mg/dl BUN 30 H (6-23) mg/dl Creatinine 1.45 H (0.6-1.4) mg/dl POC Creatinine 1.5 H (0.6-1.3) mg/dl Est Cr Clr Drug Dosing 43.4 ml/min eGFR 49.32 BUN/Creatinine Ratio 20.7 H (10-20) Glucose 119 H (70-99(Fasting)) mg/dl POC Glucose (other) 118 H (70-99) mg/dl Lactate 1.7 (0.4-2.0) mmol/L Calcium 8.7 (8.6-10.3) mg/dl POC Ioniz Calcium James 1.13 (1.12-1.32) mmol/l Magnesium 3.7 H (1.7-2.4) mg/dl Total Bilirubin 1.0 (0.2-1.0) mg/dl Direct Bilirubin 0.2 (0-0.2) mg/dl AST 28 (13-39) U/L ALT 19 (7-52) U/L Alkaline Phosphatase 57 (34-104) U/L Troponin I High Sens 7.8 (0-20) pg/ml Total Protein 5.7 L (6.0-8.3) gm/dl Albumin 3.3 L (3.4-5.0) gm/dl Procalcitonin 18.40 H (0-0.5) ng/ml SARS-CoV-2 (PCR) (Negative) Influenza Type A (PCR) (Neg) Influenza Type B (PCR) (Neg) RSV (RT-PCR) (Neg) Blood Type A Positive Antibody Screen NEGATIVE 09/02/25 09/02/25 Range/Units 10:51 Unknown WBC (4.8-10.8) K/ul RBC (4.70-6.10) M/uL Hgb (14.0-18.0) g/dL POC Hgb (14.0-18.0) g/dl Hct (42.0-52.0) % POC Hct (42-52) % MCV (80.0-100.0) fL MCH (25.0-34.0) pg MCHC (32.0-36.0) g/dL RDW Std Deviation (36.4-46.3) fL RDW Coeff of Roni (11.5-14.5) % Plt Count (130-400) K/uL MPV (9.4-12.4) fL Immature Gran % (Auto) % Neut % (Auto) % Lymph % (Auto) % [place] % (Auto) % Eos % (Auto) % Baso % (Auto) % Neut # (Auto) (1.40-6.50) K/uL Lymph # (Auto) (1.20-3.40) K/uL [place] # (Auto) (0.11-0.59) K/uL Eos # (Auto) (0.00-0.50) K/uL Baso # (Auto) (0.00-0.20) K/uL Immature Gran # (Auto) (0.01-0.20) K/uL VBG pH 7.33 L (7.36-7.41) VBG pCO2 43 (38-50) mmHg VBG pO2 56 mmHg VBG HCO3 23 mmol/L VBG O2 Saturation 87.8 % VBG Base Excess -3.2 mEq/L POC Sodium (135-144) mmol/L Sodium (136-145) mmol/L POC Potassium (3.3-5.0) mmol/L Potassium (3.5-5.1) mmol/L POC Chloride (101-112) mmol/L Chloride (98-107) mmol/L Carbon Dioxide (21-32) mmol/L POC Total CO2 (24-31) mmol/L Anion Gap (3-11) POC Anion Gap (16-25) mmol/L POC BUN (7-18) mg/dl BUN (6-23) mg/dl Creatinine (0.6-1.4) mg/dl POC Creatinine (0.6-1.3) mg/dl Est Cr Clr Drug Dosing ml/min eGFR BUN/Creatinine Ratio (10-20) Glucose (70-99(Fasting)) mg/dl POC Glucose (other) (70-99) mg/dl Lactate (0.4-2.0) mmol/L Calcium (8.6-10.3) mg/dl POC Ioniz Calcium James (1.12-1.32) mmol/l Magnesium (1.7-2.4) mg/dl Total Bilirubin (0.2-1.0) mg/dl Direct Bilirubin (0-0.2) mg/dl AST (13-39) U/L ALT (7-52) U/L Alkaline Phosphatase (34-104) U/L Troponin I High Sens (0-20) pg/ml Total Protein (6.0-8.3) gm/dl Albumin (3.4-5.0) gm/dl Procalcitonin (0-0.5) ng/ml SARS-CoV-2 (PCR) NEGATIVE (Negative) Influenza Type A (PCR) Negative (Neg) Influenza Type B (PCR) Negative (Neg) RSV (RT-PCR) Negative (Neg) Blood Type Antibody Screen Administered Medications Norepinephrine Bitartrate (Levophed/D5w) 4 mg in 250 mls @ 15.75 mls/hr IV .[id number] [facility]; Protocol Stop: 10/02/25 10:44 Last Admin: 09/02/25 12:05 Dose: 0.05 mcg/kg/min, 15.8 mls/hr Documented By: MISHA Co-signed By: OSKAR Vancomycin HCl 2,000 mg/ (Sodium Chloride) 540 mls @ 200 mls/hr IV NOW ONE Stop: 09/02/25 14:09 Last Admin: 09/02/25 11:41 Dose: 200 mls/hr Documented By: MISHA Discontinued Medications Sodium Chloride (Nss) 1,000 mls @ 999 mls/hr IV .Q1H1M ONE Stop: 09/02/25 11:09 Last Infusion: 09/02/25 10:59 Dose: Infused Documented By: Admin: 09/02/25 10:30 Dose: 999 mls/hr Documented By: MISHA Sodium Chloride (Nss) 500 mls @ 999 mls/hr IV .Q31M ONE Stop: 09/02/25 11:14 Last Infusion: 09/02/25 11:32 Dose: Infused Documented By: Admin: 09/02/25 10:59 Dose: 999 mls/hr Documented By: MISHA Ioversol (Optiray 320 125ml) 118 ml IV ONCE ONE Stop: 09/02/25 10:43 Last Admin: 09/02/25 10:42 Dose: 118 ml Documented By: IGOR Miscellaneous (Stat Iv Infusion Titration Per Protocol) 1 each N/A NOW STA Stop: 09/02/25 10:45 Last Admin: 09/02/25 11:39 Dose: Not Given Documented By: FG Imaging Data Radiologist's Impression: Abdomen/Pelvis CT 09/02/25 10:09 CT SCAN OF THE ABDOMEN AND PELVIS WITH IV CONTRAST CLINICAL HISTORY: Abdominal distention. COMPARISON STUDY: CT of the abdomen and pelvis March 01, 2021. TECHNIQUE: Following the IV administration of 118 cc of Optiray 320, CT scan of the abdomen and pelvis is performed from the lung bases to the proximal femora. Images are reviewed in the axial, sagittal, and coronal planes. IV contrast was administered without complication. A dose lowering technique was utilized adhering to the principles of ALARA. FINDINGS: Please note that the chest CT will be reported separately. There is no pneumatosis, free air or portal venous gas. No biliary or pancreatic ductal dilatation. Moderate gallbladder wall thickening is noted. However, the gallbladder is contracted. There is a small amount of right upper quadrant ascites. Spleen, adrenal glands and pancreas are unremarkable. There is moderate bilateral renal cortical thinning. Calcifications within the left renal sinus are noted. The majority are vascular. However, nonobstructing calculi would be difficult to exclude. There are no ureteral calculi. The prostate is surgically absent. There is no evidence for a bowel obstruction. The colon and rectum are moderately distended and contains a large amount stool. Of note, there is moderate circumferential wall thickening of the mid to distal descending colon and proximal to mid sigmoid colon with associated pericolonic/mesenteric inflammation. There is a small amount of ascites. No lymphadenopathy. IMPRESSION: 1. Moderate circumferential wall thickening of the mid to distal descending and proximal to mid sigmoid colon. Associated inflammation. The findings represent a nonspecific colitis, possibly stercoral. An infectious or ischemic colitis is also within the differential. No pneumatosis, free air or portal venous gas. Small amount of ascites. 2. Large amount of stool within the colon and rectum. 3. No bowel obstruction. 4. Moderate gallbladder wall thickening. However, acute cholecystitis considered unlikely given lack of gallbladder distention. ACT 112: Negative or not required by law. Electronically signed by: Israel Lewis M.D. 09/02/2025 11:21 AM Chest X-Ray 09/02/25 10:09 XR chest 1V portable HISTORY: 79 years-old Male Sepsis acute sepsis COMPARISON: Chest radiograph 05/20/2025, chest CT 05/24/2025 TECHNIQUE: AP view of the chest FINDINGS: Cardiac silhouette is enlarged. Mild right hemidiaphragmatic elevation. Pulmonary vascular congestion and interstitial coarsening. Mild bibasilar opacities. Fusion hardware of the cervical spine. Degenerative changes of the shoulders and spine. IMPRESSION: 1. Cardiomegaly with pulmonary vascular congestion. 2. Mild bibasilar opacities favor atelectasis. ACT 112: Negative or not required by law. The above report was generated using voice recognition software. It may contain grammatical, syntax or spelling errors. Electronically signed by: Olvin Landin M.D. 09/02/2025 11:45 AM Chest CTA 09/02/25 10:18 CT ANGIOGRAM OF THE CHEST CLINICAL HISTORY: Dyspnea. COMPARISON STUDY: Prior chest CT scans, most recently dated 05/24/2025. Chest x- ray dated 09/02/2025. TECHNIQUE: Following the IV administration of 118 cc of Optiray 320, CT angiogram of the chest was performed from the upper abdomen to the thoracic inlet utilizing the pulmonary embolus protocol. Images are reviewed in the axial, sagittal, and coronal planes. 3-D MIPS images are created and assessed. IV contrast was administered without complication. A dose lowering technique was utilized adhering to the principles of ALARA. The examination is degraded by motion artifact, as well as by streak artifact from the arms which could not be elevated above the chest. CT DOSE: 2667.09 mGy.cm FINDINGS: Thyroid: Imaged portions of the thyroid gland are normal in size and attenuation. Thoracic aorta: There is atherosclerotic calcification of the thoracic aorta, which is normal in caliber and demonstrates bovine variant arch anatomy. No dissection is seen. Pulmonary vasculature: The pulmonary trunk is normal in caliber. There are no filling defects identified in main, lobar, or segmental pulmonary branches to suggest pulmonary embolus. Heart: The heart is enlarged noting a small pericardial effusion. The coronary arteries are densely calcified. Lungs and pleural spaces: Evaluation of the lung parenchyma is degraded by motion artifact. There is emphysema with postsurgical change from right lower lobe resection. The trachea and central airways are clear. Dependent scarring/atelectasis is noted in both lungs. There is no airspace consolidation typical for pneumonia or pleural effusion. There are several 2-3 mm pulmonary nodules in the right upper lung which are new from previous. Bulldogger nodules are seen on images #136, #131, #126, and #110. Nodular thickening along the right major fissure is likely unchanged. Mediastinum: A mildly enlarged high right paratracheal lymph node image #146 is unchanged measuring 13 mm in short axis. Mildly enlarged prevascular nodes measure up to 12 mm short axis. Princess: Clear. Axillae: There is no axillary lymphadenopathy. Upper abdomen: There is a small amount of perihepatic ascites. The gallbladder is contracted and the gallbladder wall appears thickened/edematous. See report of today's abdominal CT for detailed intra-abdominal findings. Skeletal structures: The skeletal structures are osteopenic. No lytic or blastic bony lesions are seen. There is chronic deformity of the right-sided ribs. There are also chronic/healed left-sided rib fractures. IMPRESSION: 1. There is no evidence of pulmonary embolus in the main, lobar, or segmental pulmonary arteries. 2. Cardiomegaly and emphysema with postsurgical change from right lower lobe resection. 3. Dependent airspace opacities have increased in previous and favor atelectasis on top of chronic scarring. 4. There is no airspace consolidation typical for pneumonia or pleural effusion. 5. There are several 2-3 mm right upper lobe pulmonary nodules which are new from previous and likely infectious/inflammatory. A 3-4 month follow-up chest CT is recommended for reassessment. 6. Mildly enlarged mediastinal lymph nodes are similar to previous. 7. Trace perihepatic ascites. 8. Additional findings as above. ACT 112: Negative or not required by law. Electronically signed by: Peewee Smith M.D. 09/02/2025 11:32 AM Discharge Plan Visit Data Chief Complaint: Abdominal Pain Stated Complaint: AB PAIN, SOB ED Provider: Aixa Neal Discharge Problem: AMS (altered mental status), Acute hypoxemic respiratory failure, Abdominal pain, Sepsis, Elevated procalcitonin, KIM (acute kidney injury) Patient Disposition: Admitted As Inpatient Condition: Fair Forms Stand Alone Forms: My waygum Prescriptions Prescriptions: No Action baclofen 5 mg tablet 5 mg PO DAILY PRN (Reason: Muscle Spasm) Mounjaro 7.5 mg/0.5 mL pen injector 7.5 mg subcut Q7D Qty: 6 3RF Rx Instructions: prior approved from 09/07/24-11/07/25Thursdays thiamine HCl (vitamin B1) [Vitamin B-1] 100 mg tablet 300 mg PO BID lidocaine 5 % adhesive patch,medicated 1 patch topical DAILY PRN (Reason: Pain) Patient Comments: 12 hrs on and 12 hrs off Rx Instructions: leave on most painful area for up to 12 hrs naltrexone 50 mg tablet 50 mg PO HS trospium 60 mg capsule,extended release 24hr 60 mg PO DAILY Qty: 30 2RF Rx Instructions: must be taken on empty stomach at least 1 hour before a meal/food with water only bumetanide 1 mg tablet 2 mg PO QAM carvedilol [Coreg] 12.5 mg tablet 12.5 mg PO BID sennosides [Senokot] 8.6 mg tablet 17.2 mg PO HS PRN (Reason: constipation) Rx Instructions: Available [id number]-iitqjvo tiotropium-olodaterol 2.5-2.5 mcg/actuation mist 2 puff inhalation QAM cholecalciferol (vitamin D3) 10 mcg (400 unit) capsule 10 mcg PO DAILY montelukast 10 mg tablet 10 mg PO HS Qty: 90 3RF multivitamin Tablet 1 tab PO QAM loratadine [Claritin] 10 mg Tablet 10 mg PO QAM omeprazole 20 mg Tablet,Delayed Release (Dr/Ec) 40 mg PO QAM clotrimazole 1 % Cream 1 applic TOPICAL BID PRN (Reason: Rash) ezetimibe [Zetia] 10 mg tablet 10 mg PO QAM terazosin 10 mg Capsule 10 mg PO HS vitamin E 268 mg (400 unit) Capsule 268 mg PO QAM clindamycin phosphate 1 % Solution 1 applic TOPICAL BID PRN (Reason: Breakouts) pregabalin 225 mg Capsule 225 mg PO BID topiramate 25 mg tablet 25 mg PO BID Rx Instructions: Take 25mg by mouth BID (currently listed as Active/Suspended on med list from [facility]) salicylic acid 3 % shampoo 1 ea topical DAILY PRN (Reason: Other) selenium sulfide 2.5 % lotion 1 applic TOPICAL Q OTHER DAY PRN (Reason: Other) omega 3-sra-pdh-fish oil 900-1,400 mg capsule,delayed release(DR/EC) 1 cap PO BID potassium chloride 20 mEq tablet,ER particles/crystals 10 meq PO DAILY Rx Instructions: Per [facility] this is discontinued, spouse states still taking Referrals Referrals: Dea Waldron PATashaC [Primary Care Provider] -
[2025-09-02] MEDS: SODIUM CHLORIDE 0.9% 1,000 ML IV ONE (10:30)
[2025-09-02 10:37] LABS: Hematocrit (blood only) 44.1 % (42.0-52.0); Hemoglobin 15.0 g/dL (14.0-18.0); Immature Granulocytes # (auto) 0.05 K/uL (0.01-0.20); Immature Granulocytes % (auto) 0.5 %; Mean Corpuscular Hemoglobin 29.5 pg (25.0-34.0); Mean Corpuscular Volume 86.6 fL (80.0-100.0); Platelet Count 198 K/uL (130-400); RDW Standard Deviation 46.3 fL (36.4-46.3); Red Blood Count 5.09 M/uL (4.70-6.10); White Blood Count 9.58 K/ul (4.8-10.8)
[2025-09-02] MEDS: OPTIRAY 320 125ml IV ONE (10:42)
[2025-09-02 10:55] LABS: Base Excess VBG -3.2 mEq/L; HCO3 VBG 23 mmol/L; Oxygen Saturation VBG 87.8 %; PCO2 VBG 43 mmHg (38-50); PO2 VBG 56 mmHg; pH VBG 7.33 (7.36-7.41)
[2025-09-02] MEDS: SODIUM CHLORIDE 0.9% 500 ML IV ONE (10:59)
[2025-09-02 11:00] LABS: Alanine Aminotransferase 19.0 U/L (7-52); Albumin Level 3.3 gm/dl (3.4-5.0); Alkaline Phosphatase 57.0 U/L (34-104); Anion Gap 9.0 (3-11); Bilirubin,Total 1.0 mg/dl (0.2-1.0); Blood Urea Nitrogen 30.0 mg/dl (6-23); Calcium 8.7 mg/dl (8.6-10.3); Carbon Dioxide 25.0 mmol/L (21-32); Chloride 108.0 mmol/L (98-107); Creatinine Clr Calc Pharmacy 43.4 ml/min; Glucose 119.0 mg/dl (70-99(Fasting)); Magnesium 3.7 mg/dl (1.7-2.4); Potassium 3.7 mmol/L (3.5-5.1); Sodium 142.0 mmol/L (136-145); Total Protein 5.7 gm/dl (6.0-8.3)
--- NOTE | 2025-09-02 11:22 | CT Scan Report ---
CT SCAN OF THE ABDOMEN AND PELVIS WITH IV CONTRAST CLINICAL HISTORY: Abdominal distention. COMPARISON STUDY: CT of the abdomen and pelvis March 01, 2021. TECHNIQUE: Following the IV administration of 118 cc of Optiray 320, CT scan of the abdomen and pelv is is performed from the lung bases to the proximal femora. Images are reviewed in the axial, sagitta l, and coronal planes. IV contrast was administered without complication. A dose lowering technique w as utilized adhering to the principles of ALARA. FINDINGS: Please note that the chest CT will be reported separately. There is no pneumatosis, free ai r or portal venous gas. No biliary or pancreatic ductal dilatation. Moderate gallbladder wall thicken ing is noted. However, the gallbladder is contracted. There is a small amount of right upper quadrant ascites. Spleen, adrenal glands and pancreas are unremarkable. There is moderate bilateral renal cor tical thinning. Calcifications within the left renal sinus are noted. The majority are vascular. Aviles ruba, nonobstructing calculi would be difficult to exclude. There are no ureteral calculi. The prostat e is surgically absent. There is no evidence for a bowel obstruction. The colon and rectum are modera tely distended and contains a large amount stool. Of note, there is moderate circumferential wall thi ckening of the mid to distal descending colon and proximal to mid sigmoid colon with associated peric olonic/mesenteric inflammation. There is a small amount of ascites. No lymphadenopathy. IMPRESSION: 1. Moderate circumferential wall thickening of the mid to distal descending and proximal to mid sigmo id colon. Associated inflammation. The findings represent a nonspecific colitis, possibly stercoral. An infectious or ischemic colitis is also within the differential. No pneumatosis, free air or portal venous gas. Small amount of ascites. 2. Large amount of stool within the colon and rectum. 3. No bowel obstruction. 4. Moderate gallbladder wall thickening. However, acute cholecystitis considered unlikely given lack of gallbladder distention. ACT 112: Negative or not required by law. Electronically signed by: Israel Lewis M.D. 09/02/2025 11:21 AM
[2025-09-02] MEDS ORDERED: VANCOMYCIN CONSULT ACTIVE PRN (11:28)
--- NOTE | 2025-09-02 11:34 | CT Scan Report ---
CT ANGIOGRAM OF THE CHEST CLINICAL HISTORY: Dyspnea. COMPARISON STUDY: Prior chest CT scans, most recently dated 05/24/2025. Chest x-ray dated 09/02/2025. TECHNIQUE: Following the IV administration of 118 cc of Optiray 320, CT angiogram of the chest was pe rformed from the upper abdomen to the thoracic inlet utilizing the pulmonary embolus protocol. Images are reviewed in the axial, sagittal, and coronal planes. 3-D MIPS images are created and assessed. I V contrast was administered without complication. A dose lowering technique was utilized adhering to the principles of ALARA. The examination is degraded by motion artifact, as well as by streak artifa ct from the arms which could not be elevated above the chest. CT DOSE: 2667.09 mGy.cm FINDINGS: Thyroid: Imaged portions of the thyroid gland are normal in size and attenuation. Thoracic aorta: There is atherosclerotic calcification of the thoracic aorta, which is normal in lila sofia and demonstrates bovine variant arch anatomy. No dissection is seen. Pulmonary vasculature: The pulmonary trunk is normal in caliber. There are no filling defects identif ied in main, lobar, or segmental pulmonary branches to suggest pulmonary embolus. Heart: The heart is enlarged noting a small pericardial effusion. The coronary arteries are densely c alcified. Lungs and pleural spaces: Evaluation of the lung parenchyma is degraded by motion artifact. There is emphysema with postsurgical change from right lower lobe resection. The trachea and central airways a re clear. Dependent scarring/atelectasis is noted in both lungs. There is no airspace consolidation t ypical for pneumonia or pleural effusion. There are several 2-3 mm pulmonary nodules in the right upp er lung which are new from previous. Parent Coach nodules are seen on images #136, #131, #126, and #110. Nodular thickening along the right major fissure is likely unchanged. Mediastinum: A mildly enlarged high right paratracheal lymph node image #146 is unchanged measuring 1 3 mm in short axis. Mildly enlarged prevascular nodes measure up to 12 mm short axis. Princess: Clear. Axillae: There is no axillary lymphadenopathy. Upper abdomen: There is a small amount of perihepatic ascites. The gallbladder is contracted and the gallbladder wall appears thickened/edematous. See report of today's abdominal CT for detailed intra-a bdominal findings. Skeletal structures: The skeletal structures are osteopenic. No lytic or blastic bony lesions are see n. There is chronic deformity of the right-sided ribs. There are also chronic/healed left-sided rib f ractures. IMPRESSION: 1. There is no evidence of pulmonary embolus in the main, lobar, or segmental pulmonary arteries. 2. Cardiomegaly and emphysema with postsurgical change from right lower lobe resection. 3. Dependent airspace opacities have increased in previous and favor atelectasis on top of chronic sc arring. 4. There is no airspace consolidation typical for pneumonia or pleural effusion. 5. There are several 2-3 mm right upper lobe pulmonary nodules which are new from previous and likely infectious/inflammatory. A 3-4 month follow-up chest CT is recommended for reassessment. 6. Mildly enlarged mediastinal lymph nodes are similar to previous. 7. Trace perihepatic ascites. 8. Additional findings as above. ACT 112: Negative or not required by law. Electronically signed by: Peewee Smith M.D. 09/02/2025 11:32 AM
[2025-09-02] MEDS: STAT IV Infusion **Titration per Protocol STA (11:39)
[2025-09-02] MEDS: VANCOMYCIN HCL 2,000 MG in SODIUM CHLORIDE 0.9% 500 ML IV ONE (11:41)
--- NOTE | 2025-09-02 11:47 | XRay Report ---
XR chest 1V portable HISTORY: 79 years-old Male Sepsis acute sepsis COMPARISON: Chest radiograph 05/20/2025, chest CT 05/24/2025 TECHNIQUE: AP view of the chest FINDINGS: Cardiac silhouette is enlarged. Mild right hemidiaphragmatic elevation. Pulmonary vascular congestion and interstitial coarsening. Mild bibasilar opacities. Fusion hardware of the cervical spine. Degene rative changes of the shoulders and spine. IMPRESSION: 1. Cardiomegaly with pulmonary vascular congestion. 2. Mild bibasilar opacities favor atelectasis. ACT 112: Negative or not required by law. The above report was generated using voice recognition software. It may contain grammatical, syntax o r spelling errors. Electronically signed by: Olvin Landin M.D. 09/02/2025 11:45 AM
[2025-09-02] MEDS: NOREPINEPHRINE/D5W 4 MG/250 ML PLCT IV SCH (12:05)
[2025-09-02 12:17] LABS: Influenza A virus by PCR Negative (Neg); Influenza B virus by PCR Negative (Neg); SARS CoV2 RNA(COVID-19) Ceph NEGATIVE (Negative)
--- NOTE | 2025-09-02 12:28 | History & Physical Report ---
Date of Service September 02, 2025 Assessment & Plan (1) AMS (altered mental status): (2) Septic shock: (3) Acute hypoxemic respiratory failure: (4) Peripheral arterial disease: (5) LINDSAY (obstructive sleep apnea): (6) Cardiomyopathy: (7) COPD with emphysema: (8) Thoracic aortic aneurysm (TAA): (9) Alcohol use disorder: (10) Type 2 diabetes mellitus: (11) Sepsis: (12) KIM (acute kidney injury): (13) History of lobectomy of lung: (14) Fusion of spine: Plan #Septic shock #SIRS/sepsis #Altered mental status - Acute and rapid decline, no clear source despite thorough imaging on presentation, consistent with GI presentation -Persistent hypotension/tachycardia despite 30 mg/kg volume resuscitation consistent with volume refractory shock Initial lactic acid negative, will repeat-in 2 hours after volume expansion to ensure we are making progress, initiate Levophed secondary to depressed MAP in the setting of persistent tachycardia -Admit ICU - Vancomycin and cefepime initiated in the emergency department - Continue normal saline at 125 cc/h, given concentric hypertrophy and ischemic cardiomyopathy we will proceed judiciously with fluid, previous EF seems to suggest that Starling volume responsiveness test would be appropriate, complete in ICU as admit coordination permit -Consult engineering illustrator for shock of mixed etiology, septic/distributive, possibly cardiogenic -Trend H&H given reddish./liquidy stools #Hypermagnesemia - I do not see that he is currently on a supplement, presentation overall would be very consistent with hypomagnesemia syndrome, altered mental status, hypotension, refractory to volume resuscitation. - Pressor support as above, admit ICU - Recheck on ICU admission #Hypoxemic respiratory failure #COPD/emphysema #Status post right middle lobectomy - Postsurgical findings stable on CT, multifocal pneumonia possible, antibiotics as above, respiratory support with nebulizers, oxygen, RT consultation Advanced airway support-okay with family, including CPAP/BiPAP or intubation if needed -Admit ICU as above #Diarrhea #Abdominal pain prior to presentation - No clear source on CT, cefepime as above, serial examinations, Zosyn and cefepime for broad-spectrum coverage - Stool culture and C. difficile testing sent #KIM - Likely prerenal in the setting of acute illness as above, status post 30 mg/kg, continue to monitor, avoid nephrotoxic substances #Type 2 diabetes - Hold tirzepatide, sliding scale per ICU protocol on admission #Alcohol use disorder history of withdrawl - naltrexone is on his home medication list, will review further with his - In regards to the role alcohol or alcohol withdrawal may be playing in current presentation, could certainly be exacerbating mental status changes - add liver functions and lipase - High risk for withdrawal, AWSS screen orders placed #Altered mental status - Likely mixed etiology, toxic/infectious as above, metabolic in regards to possible alcohol withdrawal/hypermagnesemia. Continue to monitor closely with AWSS #Hypertension -Hold antihypertensives in the setting of shock as above #recurrent migraine - Hold topiramate #Thoracic aortic aneurysm -No evidence of acute pathology on CT, continue to monitor #FEN NPO initally CODE STATUS - Full code in discussion with his . She states he would not want anything prolonged if the prognosis was grim History of Present Illness Chief Complaint: AMS Primary Care Provider: Dea Waldron PA-C 79-year-old male history of ischemic cardiomyopathy, PAD, COPD with emphysema, thoracic aortic aneurysm, LINDSAY, degenerative back disease, history of recurrent multifocal pneumonia, HFpEF, hypertension with labile blood pressures, history of alcohol dependence, migraine presents with abrupt onset confusion, weakness, altered mental status. Per his he was at his normal baseline of health yesterday had an uneventful day. Through the night woke up through the night 1 time to urinate. Got back to bed had made some moaning and groaning sounds to which his checked on him to see if he was a. A couple of hours later at 5 AM she noticed to try to get up to go to the bathroom but was unable to do so independently. At that time he had a diarrhea type stool. She thought maybe more red to dark but this was different and new for him. At that time did not note a fever chills or other generalized signs of illness. He was so weak that he was unable to get himself independently back to bed. Second this EMS was contacted to bring him into the emergency department for evaluation EMS noted him to be febrile to 102, hypotensive, hypoxemic. He was placed on 3 L nasal cannula brought to the emergency department for evaluation. Comprehensive source evaluation for fever/altered mental status showed no clear source including CT of the abdomen and chest. He was hypotensive. He was given a total of 2.5 L crystalloid for volume expansion met the 30/kg sepsis load. He was started on vancomycin and cefepime. Still hypotensive and tachycardic despite volume resuscitation as above. Secondary to this Levophed was initiated. He was admitted to the ICU for volume refractory shock, likely infectious/sepsis. Cannot rule out cardiogenic/hypovolemic/anemic shock. Allergies Allergy/AdvReac Type Severity Reaction Status Date / Time Penicillins Allergy Severe SWELLING, Verified 08/12/25 14:57 TROUBLE BREATHING fluvastatin [From Lescol] Allergy Unknown Unknown Verified 08/12/25 14:57 lisinopril Allergy Unknown Unknown Verified 08/12/25 14:57 lovastatin Allergy Unknown PT DOESN'T Verified 08/12/25 14:57 REMEMBER REACTION-NAUSEA? simvastatin Allergy Unknown PT DOESN'T Verified 08/12/25 14:57 REMEMBER REACTION-NAUSEA? diazepam AdvReac Mild lethargy Verified 08/12/25 14:57 losartan AdvReac Mild Dizziness Verified 08/12/25 14:57 Adfkszm-QVH-KuL Reductase AdvReac Unknown NAUSEA Verified 08/12/25 14:57 Inhibitor [Nkagsea-Nht-Glf Reductase Inhibitor] Home Medications Medication Instructions Recorded Confirmed Type loratadine 10 mg tablet (Claritin) 10 mg PO QAM allergies 03/01/21 09/02/25 History multivitamin 1 tab PO QAM 03/01/21 09/02/25 History omeprazole 20 mg tablet,delayed 40 mg PO QAM 03/01/21 09/02/25 History release naltrexone 50 mg tablet 50 mg PO HS 11/16/21 09/02/25 History thiamine HCl (vitamin B1) 100 mg 300 mg PO BID 04/28/23 09/02/25 History tablet (Vitamin B-1) lidocaine 5 % topical patch 1 patch topical DAILY PRN Pain 05/02/23 09/02/25 History clotrimazole 1 % topical cream 1 applic topical BID PRN Rash 12/12/23 09/02/25 History clindamycin phosphate 1 % topical 1 applic topical BID PRN Breakouts 09/05/24 09/02/25 History solution pregabalin 225 mg capsule 225 mg PO BID 09/05/24 09/02/25 History terazosin 10 mg capsule 10 mg PO HS 09/05/24 09/02/25 History topiramate 25 mg tablet 25 mg PO BID Migraine Prevention 09/05/24 09/02/25 History vitamin E 268 mg (400 unit) capsule 268 mg PO QAM 09/05/24 09/02/25 History baclofen 5 mg tablet 5 mg PO DAILY PRN Muscle Spasm 11/23/24 09/02/25 History ezetimibe 10 mg tablet (Zetia) 10 mg PO QAM 12/28/24 09/02/25 History montelukast 10 mg tablet 10 mg PO HS #90 tabs 05/30/25 09/02/25 Rx trospium 60 mg capsule,extended 60 mg PO DAILY #30 caps 06/04/25 09/02/25 Rx release 24 hr bumetanide 1 mg tablet 2 mg PO QAM 08/12/25 09/02/25 History carvedilol 12.5 mg tablet (Coreg) 12.5 mg PO BID 08/12/25 09/02/25 History cholecalciferol (vitamin D3) 10 10 mcg PO DAILY 08/12/25 09/02/25 History mcg (400 unit) capsule omega 4-wvy-ehc-fish oil 900 1 cap PO BID 08/12/25 09/02/25 History mg-1,400 mg capsule,delayed release potassium chloride 20 mEq 10 meq PO DAILY 08/12/25 09/02/25 History tablet,extended release(part/cryst) salicylic acid 3 % shampoo 1 ea topical DAILY PRN Other 08/12/25 09/02/25 History selenium sulfide 2.5 % lotion 1 applic topical Q OTHER DAY PRN 08/12/25 09/02/25 History Other sennosides 8.6 mg tablet (Senokot) 17.2 mg PO HS PRN constipation 08/12/25 09/02/25 History tiotropium 2.5 mcg-olodaterol 2.5 2 puff inhalation QAM 08/12/25 09/02/25 History mcg/actuation mist for inhalation tirzepatide 7.5 mg/0.5 mL 7.5 mg (0.5 mL) subcut Q7D #6 mL 08/21/25 09/02/25 Rx subcutaneous pen injector (Sathish) Past Med/Surg History Problem List (Updated 09/02/25 @ 14:11 by Anup Aranda MD) Septic shock IKM (acute kidney injury) (Acute) Elevated procalcitonin (Acute) Sepsis (Acute) Abdominal pain (Acute) Acute hypoxemic respiratory failure (Acute) AMS (altered mental status) (Acute) Chronic bronchitis Peripheral arterial disease Back pain at L4-L5 level Facet arthropathy, lumbar LINDSAY (obstructive sleep apnea) Ex-smoker Multiple pulmonary nodules Exertional dyspnea Abnormal chest CT Cardiomyopathy Pneumonia (Acute) Hypoxia (Acute) Dysphagia COPD with emphysema Multifocal pneumonia COPD (chronic obstructive pulmonary disease) Ambulatory dysfunction Pneumonia Hypoxia Lumbar stenosis with neurogenic claudication Thoracic aortic aneurysm (TAA) Atherogenic dyslipidemia Left ventricular hypertrophy Analgesic rebound headache Tension type headache Lumbar sprain Left lower lobe pneumonia (Acute) Shortness of breath (Acute) Acute hypoxemic respiratory failure (Acute) Chronic diastolic CHF (congestive heart failure) Hospital-acquired pneumonia Hypertensive urgency Acute hypoxemic respiratory failure (Acute) Acute exacerbation of CHF (congestive heart failure) (Acute) Hypertensive emergency (Acute) Daily urinary incontinence Gait apraxia Cerebral ventriculomegaly Rupture of left proximal biceps tendon with repair Subjective memory complaints Prostate cancer Urinary urgency H/O alcohol dependence Elevated CPK Muscle cramp Lumbosacral radiculopathy Idiopathic polyneuropathy Alcohol use disorder Pulmonary nodule Delirium tremens Confusion (Acute) Pneumonia Ataxia Mixed headache Memory loss Hypercholesteremia (Chronic) Bladder neoplasm (Acute) Cervical stenosis of spine (Acute) Arthritis (Chronic) Cognitive complaints (Acute) Common migraine without aura (Chronic) Lumbar radiculopathy (Chronic) Peripheral neuropathy (Chronic) Tremor (Chronic) Type 2 diabetes mellitus (Chronic) diet controlled per pt Migraine Diabetes (Chronic) Medical History Asthma Hypertension History of injury of tendon bicep tear w/ repair History of alcohol withdrawal delirium (2020) Hypotension 02/07/25- states had blood pressure medication adjustment early 12/2023 by pcp; bp meds currently back up to previous dosages. History of pneumonia (2020) Tremor Pulmonary nodule monitoring Peripheral neuropathy Migraine Diabetes diet controlled Arthritis History of prostate cancer (2019) History of COVID-19 2021- no hosp; resolved H/O alcohol dependence has approx 1 drink per month now > "quit in February 2022" Osteoarthritis SOB (shortness of breath) on exertion 02/08/24- recent increase in SOB, nausea and weakness with exertion (home bp reading during episode 112/) Asthma uses rescue inhaler 1-2 times per week Hyperlipidemia Surgical History History of cataract surgery right Status post lung surgery H/O elbow surgery H/O prostatectomy History of bronchoscopy History of colonoscopy History of surgery on arm LEFT ELBOW-TENDON SURG Fusion of spine CERVICAL > "slightly" limited ROM side to side History of lobectomy of lung RIGHT MIDDLE LOBE-BENIGN Family History Father Diabetes Cardiac disorder Unknown Hypertension Mother Cardiac disorder Social History Smoking Status: Former smoker Tobacco Type: Cigarettes, Pipe and Cigars Age Started Using Tobacco: 20; Age Quit Using Tobacco: 61; Second Hand Exposure: No; Do You Dip or Chew Tobacco: No; Hx Alcohol Use: No Hx Substance Use: No Preferred Language: Irish Communication Ability: Effective Accounts Payable Professional Required: No Beliefs That Will Affect Care: None Current Living Situation: Spouse Feels Safe at Home: Yes Assistive Devices: Walker Review of Systems Review of Systems: Aside from that noted above a full 10 point review of systems was negative according to . Direct questioning with the patient limited secondary to altered mental status Physical Exam Constitutional: GEN: Acutely ill, lethargic, in Trendelenburg position in bed HEENT: MMM, NCAT, Palate clear, sclera anicteric NECK: No Bruit RESP: clear anteriorly, fine crackles laterally R>L CV: Tachycardic, no MRG ABD: ND, mild/generalized TTP, hyperactive BS EXTR: No Edema NEURO: GCS [id number], no focal deficits, no tremor Results & Data Results & Data Vital Signs (Past 12 Hours) Vital Signs Temp Pulse Pulse Resp BP BP Pulse Ox 09/02/25 11:50 117 H 17 94/75 L 95 09/02/25 11:45 117 H 16 108/79 94 09/02/25 11:40 117 H 15 100/70 95 09/02/25 11:35 116 H 15 110/76 95 09/02/25 11:30 116 H 15 99/74 L 95 09/02/25 11:20 115 H 14 108/78 96 09/02/25 11:15 115 H 15 103/78 96 09/02/25 11:15 114 H 15 103/78 96 09/02/25 11:10 90 15 96/64 L 96 09/02/25 11:05 90 15 95/60 L 96 09/02/25 11:00 115 H 15 95/62 L 95 09/02/25 10:55 89 15 93/67 L 95 09/02/25 10:50 116 H 16 101/66 95 09/02/25 10:45 116 H 17 106/63 94 09/02/25 10:41 120 H 18 84/57 L 91 09/02/25 10:30 120 H 20 70/54 L 91 09/02/25 10:18 117 H 09/02/25 10:17 36.6 C 120 H 20 93 O2 Del Method O2 Flow Rate 09/02/25 11:50 Oxymask 3 09/02/25 11:45 Oxymask 3 09/02/25 11:40 Oxymask 09/02/25 11:35 Oxymask 3 09/02/25 11:30 Oxymask 3 09/02/25 11:20 Oxymask 3 09/02/25 11:15 Oxymask 3 09/02/25 11:15 Oxymask 3 09/02/25 11:10 Oxymask 3 09/02/25 11:05 Oxymask 3 09/02/25 11:00 Oxymask 3 09/02/25 10:55 Oxymask 09/02/25 10:50 Oxymask 3 09/02/25 10:45 Oxymask 4 09/02/25 10:41 Oxymask 4 09/02/25 10:30 Oxymask 3 09/02/25 10:18 09/02/25 10:17 Nasal Cannula 4 Laboratory Results 09/02/25 12:45 Urine Culture - Pending Urine,Straight Cath 09/02/25 10:19 Aerobic Blood Culture - Pending Blood Anaerobic Blood Culture - Pending 09/02/25 10:19 Aerobic Blood Culture - Pending Blood Anaerobic Blood Culture - Pending 09/02/25 09/02/25 09/02/25 Unknown 12:45 10:51 WBC RBC Hgb POC Hgb Hct POC Hct MCV MCH MCHC RDW Std Deviation RDW Coeff of Roni Plt Count MPV Immature Gran % (Auto) Neut % (Auto) Lymph % (Auto) Rogers % (Auto) Eos % (Auto) Baso % (Auto) Neut # (Auto) Lymph # (Auto) Rogers # (Auto) Eos # (Auto) Baso # (Auto) Immature Gran # (Auto) VBG pH 7.33 L VBG pCO2 43 VBG pO2 56 VBG HCO3 23 VBG O2 Saturation 87.8 VBG Base Excess -3.2 POC Sodium Sodium POC Potassium Potassium POC Chloride Chloride Carbon Dioxide POC Total CO2 Anion Gap POC Anion Gap POC BUN BUN Creatinine POC Creatinine Est Cr Clr Drug Dosing eGFR BUN/Creatinine Ratio Glucose POC Glucose (other) Lactate Calcium POC Ioniz Calcium James Magnesium Total Bilirubin Direct Bilirubin AST ALT Alkaline Phosphatase Troponin I High Sens Total Protein Albumin Procalcitonin Urine Color App[place] Urine Appearance Clear Urine pH 5.0 Ur Specific [place] > 1.045 H Urine Protein Trace H Urine Glucose (UA) Negative Urine Ketones Trace H Urine Blood Negative Urine Nitrite Positive A Urine Bilirubin 2+ H Urine Urobilinogen Negative Ur Leukocyte Esterase 1+ H Urine WBC (Auto) 0-5 Urine RBC (Auto) 0-2 U Hyaline Cast (Auto) 11-20 H U Epithel Cells (Auto) 0-2 Urine Bacteria (Auto) None Seen Calcium Oxalate Crystal Present A Urine Comment SARS-CoV-2 (PCR) NEGATIVE Influenza Type A (PCR) Negative Influenza Type B (PCR) Negative RSV (RT-PCR) Negative Blood Type Antibody Screen 09/02/25 09/02/25 09/02/25 10:19 10:18 10:14 WBC 9.58 RBC 5.09 Hgb 15.0 POC Hgb 14.6 Hct 44.1 POC Hct 43 MCV 86.6 MCH 29.5 MCHC 34.0 RDW Std Deviation 46.3 RDW Coeff of Roni 14.6 H Plt Count 198 MPV 11.2 Immature Gran % (Auto) 0.5 Neut % (Auto) 83.7 Lymph % (Auto) 4.8 Rogers % (Auto) 10.4 Eos % (Auto) 0.3 Baso % (Auto) 0.3 Neut # (Auto) 8.01 H Lymph # (Auto) 0.46 L Rogers # (Auto) 1.00 H Eos # (Auto) 0.03 Baso # (Auto) 0.03 Immature Gran # (Auto) 0.05 VBG pH VBG pCO2 VBG pO2 VBG HCO3 VBG O2 Saturation VBG Base Excess POC Sodium 142 Sodium 142 POC Potassium 3.6 Potassium 3.7 POC Chloride 105 Chloride 108 H Carbon Dioxide 25 POC Total CO2 21 L Anion Gap 9 POC Anion Gap 20.0 POC BUN 29 H BUN 30 H Creatinine 1.45 H POC Creatinine 1.5 H Est Cr Clr Drug Dosing 43.4 eGFR 49.32 BUN/Creatinine Ratio 20.7 H Glucose 119 H POC Glucose (other) 118 H Lactate 1.7 Calcium 8.7 POC Ioniz Calcium James 1.13 Magnesium 3.7 H Total Bilirubin 1.0 Direct Bilirubin 0.2 AST 28 ALT 19 Alkaline Phosphatase 57 Troponin I High Sens 7.8 Total Protein 5.7 L Albumin 3.3 L Procalcitonin 18.40 H Urine Color Urine Appearance Urine pH Ur Specific [place] Urine Protein Urine Glucose (UA) Urine Ketones Urine Blood Urine Nitrite Urine Bilirubin Urine Urobilinogen Ur Leukocyte Esterase Urine WBC (Auto) Urine RBC (Auto) U Hyaline Cast (Auto) U Epithel Cells (Auto) Urine Bacteria (Auto) Calcium Oxalate Crystal Urine Comment SARS-CoV-2 (PCR) Influenza Type A (PCR) Influenza Type B (PCR) RSV (RT-PCR) Blood Type A Positive Antibody Screen NEGATIVE ECG Additional Comments: Sinus rhythm, first-degree AV block, left axis deviation, possible pulmonary disease pattern, nonspecific intraventricular delay Code Status & VTE Plan VTE Prophylaxis Plan VTE Prophylaxis will be ordered: Yes PG Care Time/CCT Total # of Minutes Spent Total Time Spent with Patient: Total time spent is greater than 50% in coordination of care (as documented) at patient's floor/unit and/or counseling patient: Coding Level of Care Code 32267 INT INP/OBS CARE MIN Diagnoses AMS (altered mental status) R41.82 Septic shock A41.9; R65.21 Acute hypoxemic respiratory failure J96.01 Peripheral arterial disease I73.9 LINDSAY (obstructive sleep apnea) G47.33 Cardiomyopathy I42.9 COPD with emphysema J43.9 Thoracic aortic aneurysm (TAA) I71.20 Alcohol use disorder F10.90 Type 2 diabetes mellitus without complication, without long-term current use of insulin E11.9 Diabetes mellitus half-way insulin use: without half-way use Diabetes mellitus complication status: without complication Sepsis A41.9 KIM (acute kidney injury) N17.9 History of lobectomy of lung Z90.2 Fusion of spine M43.20 (10) Type 2 diabetes mellitus Diabetes mellitus terminal operations 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
[2025-09-02] MEDS: CEFEPIME 2000MG 2,000 MG/20 ML SYR IV STA (12:52)
[2025-09-02 13:34] LABS: Appearance Urine Clear (Clear); Bacteria Urine Automated None Seen (None Seen); Epithelial Cell Urine Auto 0-2 /hpf (0-2); Glucose Urine UA Negative (Negative); RBC Urine Automated 0-2 /hpf (0-2); WBC Urine Automated 0-5 /hpf (0-5)
[2025-09-02] MEDS: CEFEPIME 2000MG 2,000 MG/20 ML SYR IV SCH (14:28)
[2025-09-02] MEDS: SODIUM CHLORIDE 0.9% 1,000 ML IV SCH (14:37)
[2025-09-02] MEDS: metroNIDAZOLE 500 MG/100 ML BAG IV SCH (14:37)
--- NOTE | 2025-09-02 14:42 | Pharmacy Report ---
Pharmacy PK ABX Note - Date of Service September 02, 2025 - Assessment and Plan Assessment 79 year old M receiving vancomycin, cefepime, and metronidazole for empiric coverage. Pertinent microbiologic data includes: blood cultures x2 pending, urine culture pending, stool studies pending. * Patient presents 09/02 to ED with diarrhea and weakness * Febrile to 38 C on arrival * WBC 9.58 on arrival * Increased oxygen requirement * Hypotensive but fluid responsive * SCr 1.45 on arrival; baseline between 0.8-1.1 - KIM Day #1 of antimicrobial therapy. Plan Vancomycin * Loading dose: 2000 mg IV x 1 (given 09/02 @1145) * Maintenance dose: given current KIM, will plan to dose by level * Random level ordered for: 09/03/25 with AM labs Pharmacy will continue to follow and will adjust dose/frequency as necessary. Thank you. Pharmacy has transitioned to AUC monitoring for vancomycin. AUC/NUVIA is the preferred PK/PD target and is associated with decreased risk of nephrotoxicity compared to traditional trough targets.
[2025-09-02] MEDS: PLASMA-LYTE A 1,000 ML IV SCH (14:46)
[2025-09-02] MEDS: PIPERACILLIN/TAZOBACTAM 4.5 GM/100 ML BAG IV ONE (14:59)
--- NOTE | 2025-09-02 15:03 | Critical Care Consultation ---
Date of Consultation September 02, 2025 Assessment & Plan (1) Acute colitis: (2) Hypovolemia: (3) KIM (acute kidney injury): (4) Abdominal pain: Plan 79-year-old male with a history of heart failure with preserved ejection fraction and type 2 diabetes mellitus on Mounjaro who presented to the hospital with profound diarrhea and hypovolemia. Neurologic: Patient with chronic back pain. Alert and oriented. Pulmonary: Oxygen requirements are minimal at this time. Patient does carry history of COPD. DuoNebs every [address] chest with subcentimeter nodules, scarring and significant emphysema. Obtain respiratory viral panel Cardiovascular: Patient with a history of heart failure with preserved ejection fraction. He appears hypervolemic at present. Will continue with IV fluid hydration. Troponin unremarkable. Echo ordered by hospitalist service. EKG with inco mplete right bundle branch block and no overt ischemia. MAP greater than 65. Patient was briefly on Levophed in the ER. Gastrointestinal: Patient with severe colitis. Mounjaro may be playing a role. Checking C. difficile and viral stool studies. Vancomycin initiated. Flagyl added. Continue cefepime. Jeny shield in place. Check lipase. LFTs unremarkable. Repeat stat KUB given worsening abdominal pain. Low threshold for surgical evaluation. Renal: KIM due to hypovolemia. Continuing IV fluid hydration with Plasma-Lyte at 100 mL/h. Can rebolus as needed as well due to volume loss from diarrhea. Patient with hypomagnesemia. Recheck BMP mag and Phos. Infectious disease: Pro-Jonny elevated to 18. Blood urine and stool studies pending. Empirically treating with oral vancomycin, IV cefepime and IV Flagyl. MRSA screen pending. Hematologic: Patient likely with hemoconcentration. Repeat CBC. Endocrine: Maintain euglycemia. Check TSH. Patient at risk for euglycemic DKA. Repeat VBG and BMP. Lines and tubes: Peripheral IV, Carias catheter and Jeny shield in place VTE prophylaxis: SCDs and likely start chemical prophylaxis tomorrow. CODE STATUS: Full Family at bedside: Disposition: ICU. Care coordinated with bedside nursing and hospital service. I have personally spent 65 minutes of critical care time in the direct management of this patient. This is a life/limb threatening event. This includes time spent evaluating patient, direct bedside care, chart review, placing orders, interpretation of diagnostic studies, discussion with consultants, patient, and family members, as well as other required patient management activities. This time is exclusive of all separately billable procedures, and teaching time and separate from and in addition to any other critical care service time. Thank you for allowing us to participate in the care of this patient. History of Present Illness Reason for Consultation: Hypovolemic shock Attending Physician: Anup Aranda MD History of Present Illness 79-year-old male with a history of type 2 diabetes mellitus on Mounjaro, chronic back pain, allergies, GERD and COPD who presents to the hospital due to acute nausea and severe diarrhea. He notes that his diarrhea started abruptly overnight and he has had profuse watery diarrhea. He started antibiotic yesterday due to an ear infection. He denies any chest pain or shortness of breath. He does have severe chronic back pain. He had some instability earlier this morning due to dizziness. In the ER he was given 2-1/2 L of crystalloids. He had a CT of his abdomen pelvis which revealed moderate circumferential wall thickening in the mid to distal descending and proximal to mid sigmoid colon. Nonspecific colitis was noted. Moderate gallbladder wall thickening noted. Pro calcitonin was up to 18. Mild KIM was noted. Magnesium was elevated to 3.7. Troponin was unremarkable. Chest CTA revealed cardiomegaly and emphysematous change with postsurgical change in the right lower lobe. No evidence of pulmonary embolism. Several small subcentimeter nodules with mildly enlarged mediastinal nodes. Allergies Allergy/AdvReac Type Severity Reaction Status Date / Time Penicillins Allergy Severe SWELLING, Verified 08/12/25 14:57 TROUBLE BREATHING fluvastatin [From Lescol] Allergy Unknown Unknown Verified 08/12/25 14:57 lisinopril Allergy Unknown Unknown Verified 08/12/25 14:57 lovastatin Allergy Unknown PT DOESN'T Verified 08/12/25 14:57 REMEMBER REACTION-NAUSEA? simvastatin Allergy Unknown PT DOESN'T Verified 08/12/25 14:57 REMEMBER REACTION-NAUSEA? diazepam AdvReac Mild lethargy Verified 08/12/25 14:57 losartan AdvReac Mild Dizziness Verified 08/12/25 14:57 Wwbpryy-LUK-FjF Reductase AdvReac Unknown NAUSEA Verified 08/12/25 14:57 Inhibitor [Ivubaow-Xni-Nvq Reductase Inhibitor] Home Medications Medication Instructions Recorded Confirmed Type loratadine 10 mg tablet (Claritin) 10 mg PO QAM allergies 06/06/21 12/08/25 History multivitamin 1 tab PO QAM 03/01/21 09/02/25 History omeprazole 20 mg tablet,delayed 40 mg PO QAM 03/01/21 09/02/25 History release naltrexone 50 mg tablet 50 mg PO HS 11/16/21 09/02/25 History thiamine HCl (vitamin B1) 100 mg 300 mg PO BID 04/28/23 09/02/25 History tablet (Vitamin B-1) lidocaine 5 % topical patch 1 patch topical DAILY PRN Pain 05/02/23 09/02/25 History clotrimazole 1 % topical cream 1 applic topical BID PRN Rash 12/12/23 09/02/25 History clindamycin phosphate 1 % topical 1 applic topical BID PRN Breakouts 09/05/24 09/02/25 History solution pregabalin 225 mg capsule 225 mg PO BID 09/05/24 09/02/25 History terazosin 10 mg capsule 10 mg PO HS 09/05/24 09/02/25 History topiramate 25 mg tablet 25 mg PO BID Migraine Prevention 09/05/24 09/02/25 History vitamin E 268 mg (400 unit) capsule 268 mg PO QAM 09/05/24 09/02/25 History baclofen 5 mg tablet 5 mg PO DAILY PRN Muscle Spasm 11/23/24 09/02/25 History ezetimibe 10 mg tablet (Zetia) 10 mg PO QAM 12/28/24 09/02/25 History montelukast 10 mg tablet 10 mg PO HS #90 tabs 05/30/25 09/02/25 Rx trospium 60 mg capsule,extended 60 mg PO DAILY #30 caps 06/04/25 09/02/25 Rx release 24 hr bumetanide 1 mg tablet 2 mg PO QAM 08/12/25 09/02/25 History carvedilol 12.5 mg tablet (Coreg) 12.5 mg PO BID 08/12/25 09/02/25 History cholecalciferol (vitamin D3) 10 10 mcg PO DAILY 08/12/25 09/02/25 History mcg (400 unit) capsule omega 3-mbn-bkg-fish oil 900 1 cap PO BID 08/12/25 09/02/25 History mg-1,400 mg capsule,delayed release potassium chloride 20 mEq 10 meq PO DAILY 08/12/25 09/02/25 History tablet,extended release(part/cryst) salicylic acid 3 % shampoo 1 ea topical DAILY PRN Other 08/12/25 09/02/25 History selenium sulfide 2.5 % lotion 1 applic topical Q OTHER DAY PRN 08/12/25 09/02/25 History Other sennosides 8.6 mg tablet (Senokot) 17.2 mg PO HS PRN constipation 08/12/25 09/02/25 History tiotropium 2.5 mcg-olodaterol 2.5 2 puff inhalation QAM 08/12/25 09/02/25 Histor y mcg/actuation mist for inhalation tirzepatide 7.5 mg/0.5 mL 7.5 mg (0.5 mL) subcut Q7D #6 mL 08/21/25 09/02/25 Rx subcutaneous pen injector (Sathish) Patient History Medical History Asthma Hypertension History of injury of tendon bicep tear w/ repair History of alcohol withdrawal delirium (2020) Hypotension 02/07/25- states had blood pressure medication adjustment early 12/2023 by pcp; bp meds currently back up to previous dosages. History of pneumonia (2020) Tremor Pulmonary nodule monitoring Peripheral neuropathy Migraine Diabetes diet controlled Arthritis History of prostate cancer (2019) History of COVID-19 2021- no hosp; resolved H/O alcohol dependence has approx 1 drink per month now > "quit in February 2022" Osteoarthritis SOB (shortness of breath) on exertion 02/08/24- recent increase in SOB, nausea and weakness with exertion (home bp reading during episode 112/66) Asthma uses rescue inhaler 1-2 times per week Hyperlipidemia Surgical History History of cataract surgery right Status post lung surgery H/O elbow surgery H/O prostatectomy History of bronchoscopy History of colonoscopy History of surgery on arm LEFT ELBOW-TENDON SURG Fusion of spine CERVICAL > "slightly" limited ROM side to side History of lobectomy of lung RIGHT MIDDLE LOBE-BENIGN Family History Father Diabetes Cardiac disorder Unknown Hypertension Mother Cardiac disorder Social History Smoking Status: Former smoker Tobacco Type: Cigarettes, Pipe and Cigars Age Started Using Tobacco: 20; Age Quit Using Tobacco: 61; Second Hand Exposure: No; Do You Dip or Chew Tobacco: No; Hx Alcohol Use: No Hx Substance Use: No Preferred Language: Kazakh Communication Ability: Effective Physician Support Coordinator Required: No Beliefs That Will Affect Care: None Current Living Situation: Spouse Feels Safe at Home: Yes Assistive Devices: Walker Review of Systems Review of Systems: All systems reviewed & are unremarkable except as noted in HPI & below Physical Exam Physical Exam: Constitutional: Patient writhing around in bed. Eyes: Pupils are equal round and reactive to light. Conjunctivae are normal. Anicteric sclera. Ears nose, mouth and throat: Mallampati class 2. Normal posterior oropharynx. Uvula is midline. Neck: Trachea is midline. Visual inspection is normal. Respiratory: Prolonged phase of exhalation. No wheeze. Mild bibasilar crackles. Cardiovascular: Regular rate and rhythm. No murmurs. No edema. Gastrointestinal: Severe abdominal pain and tenderness to palpation. Tympanic. Musculoskeletal: No cyanosis. Patient is able to move all extremities. Skin: No rashes, warm dry and intact. Neurologic: No obvious focal neurological deficits seen. Psychiatric: Alert and oriented x3 with a euthymic affect. Results & Data Results & Data Vital Signs (Past 12 Hours) Vital Signs Temp Pulse Pulse Resp BP BP Pulse Ox 09/02/25 14:16 104/66 09/02/25 14:15 38.0 C H 93 H 16 94 09/02/25 14:13 93 H 09/02/25 14:12 38.0 C H 93 H 18 93 09/02/25 14:00 37.9 C H 94 H 21 93 09/02/25 13:54 92/64 L 09/02/25 13:54 37.8 C H 95 H 19 93 09/02/25 13:51 37.7 C H 95 H 22 95 09/02/25 13:50 115/75 09/02/25 13:48 94 H 28 H 93 09/02/25 13:42 94 H 20 93 09/02/25 13:40 112/82 09/02/25 13:39 94 H 20 94 09/02/25 13:27 94 H 20 93 09/02/25 13:05 37.9 C H 92 H 19 109/72 94 09/02/25 12:45 92 H 18 117/77 94 09/02/25 12:40 92 H 21 125/82 95 09/02/25 12:35 92 H 25 H 116/81 94 09/02/25 12:30 92 H 17 119/80 94 09/02/25 12:25 119 H 19 124/81 92 09/02/25 12:15 118 H 18 112/84 94 09/02/25 12:10 118 H 17 101/73 94 09/02/25 12:00 118 H 17 92/68 L 94 09/02/25 11:50 117 H 17 94/75 L 95 09/02/25 11:45 117 H 16 108/79 94 09/02/25 11:40 117 H 15 100/70 95 09/02/25 11:35 116 H 15 110/76 95 09/02/25 11:30 116 H 15 99/74 L 95 09/02/25 11:20 115 H 14 108/78 96 09/02/25 11:15 115 H 15 103/78 96 09/02/25 11:15 114 H 15 103/78 96 09/02/25 11:10 90 15 96/64 L 96 09/02/25 11:05 90 15 95/60 L 96 09/02/25 11:00 115 H 15 95/62 L 95 09/02/25 10:55 89 15 93/67 L 95 09/02/25 10:50 116 H 16 101/66 95 09/02/25 10:45 116 H 17 106/63 94 09/02/25 10:41 120 H 18 84/57 L 91 09/02/25 10:30 120 H 20 70/54 L 91 09/02/25 10:18 117 H 09/02/25 10:17 36.6 C 120 H 20 93 O2 Del Method O2 Flow Rate 09/02/25 14:16 09/02/25 14:15 09/02/25 14:13 09/02/25 14:12 09/02/25 14:00 09/02/25 13:54 09/02/25 13:54 09/02/25 13:51 09/02/25 13:50 09/02/25 13:48 09/02/25 13:42 09/02/25 13:40 09/02/25 13:39 09/02/25 13:27 09/02/25 13:05 Oxymask 3 09/02/25 12:45 Oxymask 3 09/02/25 12:40 Oxymask 3 09/02/25 12:35 Oxymask 3 09/02/25 12:30 Oxymask 3 09/02/25 12:25 Oxymask 3 09/02/25 12:15 Oxymask 3 09/02/25 12:10 Oxymask 3 09/02/25 12:00 Oxymask 3 09/02/25 11:50 Oxymask 3 09/02/25 11:45 Oxymask 3 09/02/25 11:40 Oxymask 09/02/25 11:35 Oxymask 3 09/02/25 11:30 Oxymask 3 09/02/25 11:20 Oxymask 3 09/02/25 11:15 Oxymask 3 09/02/25 11:15 Oxymask 3 09/02/25 11:10 Oxymask 3 09/02/25 11:05 Oxymask 3 09/02/25 11:00 Oxymask 3 09/02/25 10:55 Oxymask 09/02/25 10:50 Oxymask 3 09/02/25 10:45 Oxymask 4 09/02/25 10:41 Oxymask 4 09/02/25 10:30 Oxymask 3 09/02/25 10:18 09/02/25 10:17 Nasal Cannula 4 Coding Level of Care Code 89537 CRITICAL CARE 1ST 30-74M Diagnoses Acute colitis K52.9 Hypovolemia E86.1 KIM (acute kidney injury) N17.9 Abdominal pain R10.9
--- NOTE | 2025-09-02 15:11 | XRay Report ---
KUB CLINICAL HISTORY: Generalized abdominal pain. FINDINGS: 2 AP, portable, supine abdominal radiographs are correlated with abdominal CT performed the same day 09/02/2025. Numerous surgical clips project over the pelvis. No evidence of intraperitoneal free air is seen on this supine examination. There is diffuse gaseous distention of the colon. The sm all bowel loops are normal in caliber. There is moderate colonic fecal retention. The skeletal struct ures are osteopenic and appear intact. There is lumbosacral spondylosis. IMPRESSION: 1. Diffuse gaseous distention of the colon and fecal retention is again noted. Findings of a colitis were better appreciated on today's CT scan. 2. The small bowel loops are normal in caliber. Electronically signed by: Peewee Smith M.D. 09/02/2025 3:10 PM
[2025-09-02 15:31] LABS: Hematocrit (blood only) 48.0 % (42.0-52.0); Hemoglobin 16.4 g/dL (14.0-18.0)
[2025-09-02 15:32] LABS: Adenovirus F 40/41 PCR Not Detected (NotDetected); Campylobacter PCR Not Detected (NotDetected); Enteroaggregative E.coli(EAEC) Not Detected (NotDetected); Shiga-like Toxin E.coli (STEC) Not Detected (NotDetected); Vibrio species PCR Not Detected (NotDetected)
[2025-09-02 16:11] LABS: Anion Gap 9.0 (3-11); Blood Urea Nitrogen 31.0 mg/dl (6-23); Calcium 8.5 mg/dl (8.6-10.3); Carbon Dioxide 21.0 mmol/L (21-32); Chloride 110.0 mmol/L (98-107); Creatine Kinase 154.0 U/L (30-223); Creatinine Clr Calc Pharmacy 47.3 ml/min; Glucose 150.0 mg/dl (70-99(Fasting)); Lipase 14.0 U/L (11-82); Magnesium 3.9 mg/dl (1.7-2.4); Potassium 4.6 mmol/L (3.5-5.1); Sodium 140.0 mmol/L (136-145); Thyroid Stimulating Hormone 0.534 uIu/ml (0.300-4.500)
[2025-09-02 16:12] LABS: Cdiff Toxin B Gene (2yr or >) Positive Cdiff Gene (Neg)
[2025-09-02 16:13] LABS: Cdiff Toxin A+B Negative Cdiff Toxin (Negative)
[2025-09-02] MEDS: ALBUMIN 5% 250 ML IV SCH (16:27)
[2025-09-02 16:30] LABS: Chlamydia pneumoniae PCR Not Detected (NotDetected); Coronavirus 229E PCR Not Detected (NotDetected); Coronavirus CoV-2 (COVID19)PCR Not Detected (NotDetected); Coronavirus HKU1 PCR Not Detected (NotDetected); Coronavirus NL63 PCR Not Detected (NotDetected); Coronavirus OC43PCR Not Detected (NotDetected); Human Metapneumovirus PCR Not Detected (NotDetected); Parainfluenza Virus 1 PCR Not Detected (NotDetected); Parainfluenza Virus 2 PCR Not Detected (NotDetected); Parainfluenza Virus 3 PCR Not Detected (NotDetected); Parainfluenza Virus 4 PCR Not Detected (NotDetected); Respiratory Syncytial VirusPCR Not Detected (NotDetected); Rhinovirus/Enterovirus PCR Not Detected (NotDetected)
[2025-09-02] MEDS: VANCOMYCIN HCL 250 MG CAP PO SCH (18:30)
[2025-09-02] MEDS: ALBUT/IPRATROP 3MG/0.5MG NEB 3 ML VIAL NEB SCH (19:33)
[2025-09-02] MEDS: ACETAMINOPHEN 1,000 MG/100 ML VIAL IV PRN (21:29)
[2025-09-03] MEDS ORDERED: CEFEPIME 2000MG 2,000 MG/20 ML SYR IV SCH (00:15)
[2025-09-03 03:24] LABS: Alanine Aminotransferase 16.0 U/L (7-52); Albumin Level 3.6 gm/dl (3.4-5.0); Alkaline Phosphatase 45.0 U/L (34-104); Bilirubin,Total 1.1 mg/dl (0.2-1.0); Creatinine Clr Calc Pharmacy 44.3 ml/min; Magnesium 4.1 mg/dl (1.7-2.4); Total Protein 5.9 gm/dl (6.0-8.3)
[2025-09-03 04:01] LABS: INR 1.3 (0.9-1.1); Prothrombin Time 13.4 Seconds (9.0-12.0)
[2025-09-03 04:17] LABS: Hematocrit (blood only) 43.3 % (42.0-52.0); Hemoglobin 14.5 g/dL (14.0-18.0); Mean Corpuscular Hemoglobin 29.5 pg (25.0-34.0); Mean Corpuscular Volume 88.2 fL (80.0-100.0); Platelet Count 189 K/uL (130-400); RDW Standard Deviation 49.7 fL (36.4-46.3); Red Blood Count 4.91 M/uL (4.70-6.10); White Blood Count 7.21 K/ul (4.8-10.8)
[2025-09-03] MEDS: VANCOMYCIN HCL 1,250 MG in SODIUM CHLORIDE 0.9% 250 ML IV ONE (04:19)
[2025-09-03 04:47] LABS: ALC (manual) 1.01 K/uL (1.2-3.4); ANC (manual) 3.82 K/uL (1.4-6.5)
[2025-09-03] MEDS: LACTATED RINGER'S 1,000 ML IV ONE (08:46)
--- NOTE | 2025-09-03 08:58 | Critical Care Progress Note ---
Date of Service September 03, 2025 Assessment & Plan (1) Acute colitis: (2) Hypovolemia: (3) KIM (acute kidney injury): (4) Abdominal pain: Plan 79-year-old male with a history of heart failure with preserved ejection fraction and type 2 diabetes mellitus on Mounjaro who presented to the hospital with profound diarrhea and hypovolemia. Neurologic: Patient with chronic back pain. Alert and oriented. Currently n.p.o. and thus not receiving his baclofen. Monitor for signs of withdrawal. Also not receiving pregabalin. Pulmonary: Oxygen requirements are minimal at this time. Patient does carry history of COPD. DuoNebs every [address] chest with subcentimeter nodules, scarring and significant emphysema. Respiratory viral panel was - 09/02/2025. Cardiovascular: Patient with a history of heart failure with preserved ejection fraction. He appears hypervolemic at present. Will continue with IV fluid hydration. Troponin unremarkable. EKG with incomplete right bundle branch block and no overt ischemia. MAP greater than 65. Patient was briefly on Levophed in the ER. Gastrointestinal: Patient with severe colitis noted on CT abdomen pelvis. Mounjaro may be playing a role. Stool studies suggest E. coli. C. difficile gene positive toxin negative. Continue oral vancomycin and IV Flagyl. Lipase and LFTs unremarkable. Consider azithromycin if persistent diarrhea. Renal: KIM due to hypovolemia. Adequate urine output. Continuing IV fluid hydration w ith Plasma-Lyte at 100 mL/h. Can rebolus as needed as well due to volume loss from diarrhea. Patient with hypermagnesemia. Lactic acidosis improving. Infectious disease: Pro-Jonny elevated to 18. Blood cultures pending. Stool studies positive for E. coli and C. difficile gene. Continue oral vancomycin and IV Flagyl given the severity of diarrhea. Hematologic: No significant concern. Endocrine: Maintain euglycemia. TSH normal. Patient at risk for euglycemic DKA. No indication of DKA at this time. Lines and tubes: Peripheral IV, Carias catheter and Jeny shield in place VTE prophylaxis: SCDs, and heparin 5000 units twice daily. CODE STATUS: Full Family at bedside: None presently available at bedside. Disposition: Patient can transfer out of the ICU to PCU status. Discussed with hospitalist via encrypted [place] text. I personally spent 40 minutes on the date of service in activities related to this patient's encounter, including 30 minutes of counseling with patient regarding treatment plan and 10 minutes of clinical review of lab results and documentation. I did counseling case manager the patient regarding their diagnosis and treatment plan and they expressed understanding. This note was dictated using voice recognition software and may include grammatical errors, extra words, word substitutions and other inaccuracies due to errors in the voice recognition software and differences in speech patterns. Admission and Anticipated Discharge Date Admission Date: September 02, 2025 Subjective Diarrhea is slowly improving. He remains febrile. He has normal tensive. He still has significant abdominal pain. He is complaining of dry lips and a dry mouth. Review of Systems Review of Systems: All systems reviewed & are unremarkable except as noted in HPI & below Physical Exam Physical Exam: Constitutional: Patient writhing around in bed. Eyes: Pupils are equal round and reactive to light. Conjunctivae are normal. Anicteric sclera. Ears nose, mouth and throat: Mallampati class 2. Normal posterior oropharynx. Uvula is midline. Neck: Trachea is midline. Visual inspection is normal. Respiratory: Prolonged phase of exhalation. No wheeze. Mild bibasilar crackles. Cardiovascular: Regular rate and rhythm. No murmurs. No edema. Gastrointestinal: Severe abdominal pain and tenderness to palpation. Tympanic. Musculoskeletal: No cyanosis. Patient is able to move all extremities. Skin: No rashes, warm dry and intact. Neurologic: No obvious focal neurological deficits seen. Psychiatric: Alert and oriented x3 with a euthymic affect. Results & Data Results & Data Vital Signs (Past 12 Hours) Vital Signs Temp Pulse Pulse Resp BP Pulse Ox O2 Del Method 09/03/25 07:11 72 18 95 Room Air 09/03/25 06:00 37.9 C H 119 H 18 86 L 09/03/25 06:00 109/72 09/03/25 06:00 109/72 09/03/25 06:00 109/09/03/25 06:00 10909/03/25 05:03 38.1 C H 122 H 19 95 09/03/25 05:01 121/09/03/25 05:01 121/09/03/25 05:01 12109/03/25 05:01 121/09/03/25 05:01 12109/03/25 05:00 38.1 C H 122 H 19 95 09/03/25 04:00 38.0 C H 121 H 21 96 09/03/25 04:00 112/68 09/03/25 04:00 112/68 09/03/25 04:00 112/68 09/03/25 04:00 112/68 09/03/25 03:00 101/56 L 09/03/25 03:00 101/56 L 09/03/25 03:00 101/56 L 09/03/25 03:00 101/56 L 09/03/25 03:00 101/56 L 09/03/25 03:00 101/56 L 09/03/25 03:00 101/56 L 09/03/25 03:00 37.9 C H 120 H 21 94 09/03/25 02:00 37.8 C H 120 H 22 94 09/03/25 02:00 110/75 09/03/25 02:00 110/75 09/03/25 02:00 110/75 09/03/25 02:00 110/75 09/03/25 01:32 119 H 22 94 Nasal Cannula 09/03/25 01:00 98/66 L 09/03/25 01:00 98/66 L 09/03/25 01:00 98/66 L 09/03/25 01:00 98/66 L 09/03/25 01:00 37.9 C H 120 H 18 92 09/03/25 00:33 Nasal Cannula 09/03/25 00:00 38.2 C H 121 H 21 92 09/03/25 00:00 101/61 09/03/25 00:00 101/61 09/03/25 00:00 101/61 09/03/25 00:00 101/61 09/03/25 00:00 101/61 09/03/25 00:00 121 H 09/02/25 23:27 38.3 C H 119 H 22 93 09/02/25 23:27 99/64 L 09/02/25 23:27 99/64 L 09/02/25 23:27 99/64 L 09/02/25 23:27 99/64 L 09/02/25 23:27 99/64 L 09/02/25 23:01 88/54 L 09/02/25 23:01 88/54 L 09/02/25 23:01 88/54 L 09/02/25 23:01 88/54 L 09/02/25 23:01 88/54 L 09/02/25 23:00 38.4 C H 92 H 19 93 09/02/25 22:30 83/55 L 09/02/25 22:30 83/55 L 09/02/25 22:30 83/55 L 09/02/25 22:30 83/55 L 09/02/25 22:30 83/55 L 09/02/25 22:30 38.7 C H 94 H 24 94 09/02/25 22:00 97/52 L 09/02/25 22:00 97/52 L 09/02/25 22:00 97/52 L 09/02/25 22:00 97/52 L 09/02/25 22:00 97/52 L 09/02/25 22:00 38.9 C H 94 H 27 H 95 09/02/25 21:30 38.9 C H 95 H 22 96 09/02/25 21:30 118/64 09/02/25 21:30 118/64 09/02/25 21:30 118/64 09/02/25 21:30 118/64 09/02/25 21:30 118/64 09/02/25 21:00 38.8 C H 94 H 23 96 09/02/25 21:00 110/61 09/02/25 21:00 110/61 09/02/25 21:00 110/61 09/02/25 21:00 110/61 09/02/25 21:00 110/61 O2 Flow Rate 09/03/25 07:11 09/03/25 06:00 09/03/25 06:00 09/03/25 06:00 09/03/25 06:00 09/03/25 06:00 09/03/25 05:03 09/03/25 05:01 09/03/25 05:01 09/03/25 05:01 09/03/25 05:01 09/03/25 05:01 09/03/25 05:00 09/03/25 04:00 09/03/25 04:00 09/03/25 04:00 09/03/25 04:00 09/03/25 04:00 09/03/25 03:00 09/03/25 03:00 09/03/25 03:00 09/03/25 03:00 09/03/25 03:00 09/03/25 03:00 09/03/25 03:00 09/03/25 03:00 09/03/25 02:00 09/03/25 02:00 09/03/25 02:00 09/03/25 02:00 09/03/25 02:00 09/03/25 01:32 3 09/03/25 01:00 09/03/25 01:00 09/03/25 01:00 09/03/25 01:00 09/03/25 01:00 09/03/25 00:33 3 09/03/25 00:00 09/03/25 00:00 09/03/25 00:00 09/03/25 00:00 09/03/25 00:00 09/03/25 00:00 09/03/25 00:00 09/02/25 23:27 09/02/25 23:27 09/02/25 23:27 09/02/25 23:27 09/02/25 23:27 09/02/25 23:27 09/02/25 23:01 09/02/25 23:01 09/02/25 23:01 09/02/25 23:01 09/02/25 23:01 09/02/25 23:00 09/02/25 22:30 09/02/25 22:30 09/02/25 22:30 09/02/25 22:30 09/02/25 22:30 09/02/25 22:30 09/02/25 22:00 09/02/25 22:00 09/02/25 22:00 09/02/25 22:00 09/02/25 22:00 09/02/25 22:00 09/02/25 21:30 09/02/25 21:30 09/02/25 21:30 09/02/25 21:30 09/02/25 21:30 09/02/25 21:30 09/02/25 21:00 09/02/25 21:00 09/02/25 21:00 09/02/25 21:00 09/02/25 21:00 09/02/25 21:00 Coding Level of Care Code 40015 SUB INP/OBS CARE 2/35MIN Diagnoses Acute colitis K52.9 Hypovolemia E86.1 KIM (acute kidney injury) N17.9 Abdominal pain R10.9
--- NOTE | 2025-09-03 09:11 | XRay Report ---
KUB CLINICAL HISTORY: Colitis, distention, concern for perforation. COMPARISON STUDY: CT of the abdomen and pelvis and KUB September 02, 2025. FINDINGS: Surgical clips from prostatectomy are noted. Bibasilar opacities are incidentally noted. Th ere is a suspected small left pleural effusion. Large amount of poorly formed stool throughout the co corinne and rectum is again noted. Distention of small and large bowel has mildly increased. Sensitivity for detection of free air is diminished on supine exam but none is identified. IMPRESSION: 1. Increase in gaseous distention of small and large bowel. This is likely related to the colitis kwan wn on CT. However, a distal colonic obstruction would be difficult to completely exclude. 2. No evidence for free air although sensitivity diminished on this supine exam. If persistent clinic al suspicion for perforation, a CT of the abdomen and pelvis is recommended. 3. Large amount of poorly formed stool throughout the colon and rectum. ACT 112: Negative or not required by law. Electronically signed by: Israel Lewis M.D. 09/03/2025 9:09 AM
[2025-09-03] MEDS: PANTOprazole 40 MG/10 ML SYR IV SCH (09:14)
[2025-09-03] MEDS: HEPARIN SOD 5,000 UNIT/0.5 ML VIAL SQ SCH (09:15)
--- NOTE | 2025-09-03 09:29 | Cardiology Consultation ---
Date of Consultation September 03, 2025 Assessment & Plan (1) Hypotension: (2) Cardiomyopathy: (3) (HFpEF) heart failure with preserved ejection fraction: (4) SVT (supraventricular tachycardia): Plan 1. Hypotension: There appears to be no evidence that this is cardiac in nature. An echocardiogram however has been ordered. His SVT may be contributory, although based on his recent blood pressure measurements (which are hard to correlate) it has not made a big difference with termination of the arrhythmia. 2. Cardiomyopathy: He has a history of hypertrophic cardiomyopathy as well as right ventricular dysfunction. Both of these findings may make him more sensitive to volume and rhythm disturbances than with normal physiology. 3. HFpEF: He has a history of heart failure with a preserved ejection fraction, he does not appear to be in heart failure now and was likely volume depleted. It is likely that he is sensitive to fluid shifts and I would be cautious with fluid overload which might induce heart failure. He may also be sensitive to abnormal tachycardia such as his SVT. 4. SVT: I cannot tell the mechanism of his SVT, it does not appear to be classic (typical) AV curtis reentry due to a long RP interval, so it could be a long RP (atypical) AV curtis reentry, a bypass tract tachycardia or some type of adenosine sensitive atrial tachycardia. Since it clearly terminated with adenosine I am going to use diltiazem to see if we can keep him from having recurrence of this arrhythmia. Whether he should have an electrophysiologic study and ablation at some point is not clear, certainly not now. History of Present Illness Reason for Consultation: Hypotension Attending Physician: Anup Aranda MD History of Present Illness This is a 79-year-old male with a history of peripheral vascular disease, asymmetric left ventricular hypertrophy (without outflow tract obstruction) and HFpEF as well as diabetes mellitus and dyslipidemia who follows with Dr. Nuñez in our office as well as Dr. Grider of vascular surgery. He has had right ventricular dysfunction possibly due to obstructive sleep apnea and there has been some evidence of pulmonary hypertension. He presented to the emergency room on September 02, 2025 with acute hypoxic respiratory failure and altered mental state. He was noted to be hypotensive and hypoxic by EMS when they went to his house, he was also febrile and complaining of abdominal discomfort. His presentation was felt to be due to severe colitis. His presenting electrocardiogram showed sinus rhythm with left anterior fascicular block and incomplete right bundle branch block with first- degree AV block. His high-sensitivity troponin has been negative x 3. On telemetry he has had an intermittent elevated heart rate in the 120 bpm range (the majority of the time over the last several days), the mechanism is unclear. An electrocardiogram done today during this rhythm showed what could be sinus tachycardia at 126 bpm with first-degree AV block however the P wave morphology was a bit unusual. I therefore gave 6 mg followed by 12 mg of adenosine which did cause termination of this arrhythmia. He returned to the sinus rhythm at 93 bpm with first-degree AV block. The P wave morphology was somewhat different consistent with the prior rhythm being a reentrant rhythm. At the time of my evaluation he was an obvious distress from abdominal discomfort and he described having discomfort from his groin up to his neck. He was unaware of his heart rate, he did not feel the tachycardia. Allergies Allergy/AdvReac Type Severity Reaction Status Date / Time Penicillins Allergy Severe SWELLING, Verified 08/12/25 14:57 TROUBLE BREATHING fluvastatin [From Lescol] Allergy Unknown Unknown Verified 08/12/25 14:57 lisinopril Allergy Unknown Unknown Verified 08/12/25 14:57 lovastatin Allergy Unknown PT DOESN'T Verified 08/12/25 14:57 REMEMBER REACTION-NAUSEA? simvastatin Allergy Unknown PT DOESN'T Verified 08/12/25 14:57 REMEMBER REACTION-NAUSEA? diazepam AdvReac Mild lethargy Verified 08/12/25 14:57 losartan AdvReac Mild Dizziness Verified 08/12/25 14:57 Suukxxl-AUG-LeR Reductase AdvReac Unknown NAUSEA Verified 08/12/25 14:57 Inhibitor [Adfzomb-Cli-Gyq Reductase Inhibitor] Home Medications Medication Instructions Recorded Confirmed Type loratadine 10 mg tablet (Claritin) 10 mg PO QAM allergies 03/01/21 09/02/25 History multivitamin 1 tab PO QAM 03/01/21 09/02/25 History omeprazole 20 mg tablet,delayed 40 mg PO QAM 03/01/21 09/02/25 History release naltrexone 50 mg tablet 50 mg PO HS 11/16/21 09/02/25 History thiamine HCl (vitamin B1) 100 mg 300 mg PO BID 04/28/23 09/02/25 History tablet (Vitamin B-1) lidocaine 5 % topical patch 1 patch topical DAILY PRN Pain 05/02/23 09/02/25 History clotrimazole 1 % topical cream 1 applic topical BID PRN Rash 12/12/23 09/02/25 History clindamycin phosphate 1 % topical 1 applic topical BID PRN Breakouts 09/05/24 09/02/25 History solution pregabalin 225 mg capsule 225 mg PO BID 09/05/24 09/02/25 History terazosin 10 mg capsule 10 mg PO HS 09/05/24 09/02/25 History topiramate 25 mg tablet 25 mg PO BID Migraine Prevention 09/05/24 09/02/25 History vitamin E 268 mg (400 unit) capsule 268 mg PO QAM 09/05/24 09/02/25 History baclofen 5 mg tablet 5 mg PO DAILY PRN Muscle Spasm 11/23/24 09/02/25 History ezetimibe 10 mg tablet (Zetia) 10 mg PO QAM 12/28/24 09/02/25 History montelukast 10 mg tablet 10 mg PO HS #90 tabs 05/30/25 09/02/25 Rx trospium 60 mg capsule,extended 60 mg PO DAILY #30 caps 06/04/25 09/02/25 Rx release 24 hr bumetanide 1 mg tablet 2 mg PO QAM 08/12/25 09/02/25 History carvedilol 12.5 mg tablet (Coreg) 12.5 mg PO BID 08/12/25 09/02/25 History cholecalciferol (vitamin D3) 10 10 mcg PO DAILY 08/12/25 09/02/25 History mcg (400 unit) capsule omega 8-eiz-fba-fish oil 900 1 cap PO BID 08/12/25 09/02/25 History mg-1,400 mg capsule,delayed release potassium chloride 20 mEq 10 meq PO DAILY 08/12/25 09/02/25 History tablet,extended release(part/cryst) salicylic acid 3 % shampoo 1 ea topical DAILY PRN Other 08/12/25 09/02/25 History selenium sulfide 2.5 % lotion 1 applic topical Q OTHER DAY PRN 08/12/25 09/02/25 History Other sennosides 8.6 mg tablet (Senokot) 17.2 mg PO HS PRN constipation 08/12/25 09/02/25 History tiotropium 2.5 mcg-olodaterol 2.5 2 puff inhalation QAM 08/12/25 09/02/25 History mcg/actuation mist for inhalation tirzepatide 7.5 mg/0.5 mL 7.5 mg (0.5 mL) subcut Q7D #6 mL 08/21/25 09/02/25 Rx subcutaneous pen injector (Sathish) Patient History Medical History Asthma Hypertension History of injury of tendon bicep tear w/ repair History of alcohol withdrawal delirium (2020) Hypotension 02/07/25- states had blood pressure medication adjustment early 12/2023 by pcp; bp meds currently back up to previous dosages. History of pneumonia (2020) Tremor Pulmonary nodule monitoring Peripheral neuropathy Migraine Diabetes diet controlled Arthritis History of prostate cancer (2019) History of COVID-19 2021- no hosp; resolved H/O alcohol dependence has approx 1 drink per month now > "quit in February 2022" Osteoarthritis SOB (shortness of breath) on exertion 02/08/24- recent increase in SOB, nausea and weakness with exertion (home bp reading during episode 112/66) Asthma uses rescue inhaler 1-2 times per week Hyperlipidemia Surgical History History of cataract surgery right Status post lung surgery H/O elbow surgery H/O prostatectomy History of bronchoscopy History of colonoscopy History of surgery on arm LEFT ELBOW-TENDON SURG Fusion of spine CERVICAL > "slightly" limited ROM side to side History of lobectomy of lung RIGHT MIDDLE LOBE-BENIGN Family History Father Diabetes Cardiac disorder Unknown Hypertension Mother Cardiac disorder Social History Smoking Status: Former smoker Tobacco Type: Cigarettes Age Started Using Tobacco: 20; Age Quit Using Tobacco: 61; Second Hand Exposure: No; Do You Dip or Chew Tobacco: No; Hx Alcohol Use: Yes Alcohol type: beer and wine Hx Substance Use: No Preferred Language: Citizen Of [place] Communication Ability: Effective Dental Office Receptionist Required: No Beliefs That Will Affect Care: None Current Living Situation: Spouse Current Living Situation Comment: home with Feels Safe at Home: Yes Safety Concerns: Feels Safe At This Time Assistive Devices: Cane, Denture - Upper and Hearing Aid - Bilateral Assistive Devices Comment: only has upper denture on pt Review of Systems Review of Systems: Unobtainable due to cognitive status He is communicative, but I do not think I can trust his review of systems. Physical Exam Physical Exam: Constitutional: Alert, cooperative and in moderate distress. HEENT: Unremarkable, on oxygen Neck: No jugular venous distention, carotid pulses are rapid but normal and equal bilaterally without bruits. Pulmonary: Clear to auscultation bilaterally on limited exam supine. Cardiac: Regular rapid rhythm with no murmur, gallop or rub. Abdomen: Very tender, decreased bowel sounds. Extremities: No edema. Neurologic: No focal findings, moves all extremities Skin: No rash, ecchymoses or petechiae. Results & Data Vital Signs (Past 12 Hours) Vital Signs Temp Pulse Pulse Resp BP Pulse Ox O2 Del Method 09/03/25 07:11 72 18 95 Room Air 09/03/25 06:00 37.9 C H 119 H 18 86 L 09/03/25 06:00 109/72 09/03/25 06:00 109/72 09/03/25 06:00 109/72 09/03/25 06:00 109/72 09/03/25 05:03 38.1 C H 122 H 19 95 09/03/25 05:01 121/72 09/03/25 05:01 121/72 09/03/25 05:01 121/72 09/03/25 05:01 121/72 09/03/25 05:01 121/72 09/03/25 05:00 38.1 C H 122 H 19 95 09/03/25 04:00 38.0 C H 121 H 21 96 09/03/25 04:00 112/68 09/03/25 04:00 112/68 09/03/25 04:00 112/68 09/03/25 04:00 112/68 09/03/25 03:00 101/56 L 09/03/25 03:00 101/56 L 09/03/25 03:00 101/56 L 09/03/25 03:00 101/56 L 09/03/25 03:00 101/56 L 09/03/25 03:00 101/56 L 09/03/25 03:00 101/56 L 09/03/25 03:00 37.9 C H 120 H 21 94 09/03/25 02:00 37.8 C H 120 H 22 94 09/03/25 02:00 110/75 09/03/25 02:00 110/75 09/03/25 02:00 110/75 09/03/25 02:00 110/75 09/03/25 01:32 119 H 22 94 Nasal Cannula 09/03/25 01:00 98/66 L 09/03/25 01:00 98/66 L 09/03/25 01:00 98/66 L 09/03/25 01:00 98/66 L 09/03/25 01:00 37.9 C H 120 H 18 92 09/03/25 00:33 Nasal Cannula 09/03/25 00:00 38.2 C H 121 H 21 92 09/03/25 00:00 101/61 09/03/25 00:00 101/61 09/03/25 00:00 101/61 09/03/25 00:00 101/61 09/03/25 00:00 101/61 09/03/25 00:00 121 H 09/02/25 23:27 38.3 C H 119 H 22 93 09/02/25 23:27 99/64 L 09/02/25 23:27 99/64 L 09/02/25 23:27 99/64 L 09/02/25 23:27 99/64 L 09/02/25 23:27 99/64 L 09/02/25 23:01 88/54 L 09/02/25 23:01 88/54 L 09/02/25 23:01 88/54 L 09/02/25 23:01 88/54 L 09/02/25 23:01 88/54 L 09/02/25 23:00 38.4 C H 92 H 19 93 09/02/25 22:30 83/55 L 09/02/25 22:30 83/55 L 09/02/25 22:30 83/55 L 09/02/25 22:30 83/55 L 09/02/25 22:30 83/55 L 09/02/25 22:30 38.7 C H 94 H 24 94 09/02/25 22:00 97/52 L 09/02/25 22:00 97/52 L 09/02/25 22:00 97/52 L 09/02/25 22:00 97/52 L 09/02/25 22:00 97/52 L 09/02/25 22:00 38.9 C H 94 H 27 H 95 09/02/25 21:30 38.9 C H 95 H 22 96 09/02/25 21:30 118/64 09/02/25 21:30 118/64 09/02/25 21:30 118/64 09/02/25 21:30 118/64 09/02/25 21:30 118/64 O2 Flow Rate 09/03/25 07:11 09/03/25 06:00 09/03/25 06:00 09/03/25 06:00 09/03/25 06:00 09/03/25 06:00 09/03/25 05:03 09/03/25 05:01 09/03/25 05:01 09/03/25 05:01 09/03/25 05:01 09/03/25 05:01 09/03/25 05:00 09/03/25 04:00 09/03/25 04:00 09/03/25 04:00 09/03/25 04:00 09/03/25 04:00 09/03/25 03:00 09/03/25 03:00 09/03/25 03:00 09/03/25 03:00 09/03/25 03:00 09/03/25 03:00 09/03/25 03:00 09/03/25 03:00 09/03/25 02:00 09/03/25 02:00 09/03/25 02:00 09/03/25 02:00 09/03/25 02:00 09/03/25 01:32 3 09/03/25 01:00 09/03/25 01:00 09/03/25 01:00 09/03/25 01:00 09/03/25 01:00 09/03/25 00:33 3 09/03/25 00:00 09/03/25 00:00 09/03/25 00:00 09/03/25 00:00 09/03/25 00:00 09/03/25 00:00 09/03/25 00:00 09/02/25 23:27 09/02/25 23:27 09/02/25 23:27 09/02/25 23:27 09/02/25 23:27 09/02/25 23:27 09/02/25 23:01 09/02/25 23:01 09/02/25 23:01 09/02/25 23:01 09/02/25 23:01 09/02/25 23:00 09/02/25 22:30 09/02/25 22:30 09/02/25 22:30 09/02/25 22:30 09/02/25 22:30 09/02/25 22:30 09/02/25 22:00 09/02/25 22:00 09/02/25 22:00 09/02/25 22:00 09/02/25 22:00 09/02/25 22:00 09/02/25 21:30 09/02/25 21:30 09/02/25 21:30 09/02/25 21:30 09/02/25 21:30 09/02/25 21:30 Laboratory Results Cardiac Enzymes 09/02/25 09/02/25 09/03/25 Range/Units 10:14 20:34 02:36 AST 28 23 (13-39) U/L Troponin I High Sens 7.8 13.1 D 12.8 (0-20) pg/ml Coagulation 09/03/25 Range/Units 02:36 PT 13.4 H (9.0-12.0) Seconds CBC 09/02/25 09/02/25 09/03/25 Range/Units 10:14 15:04 02:36 WBC 9.58 7.21 (4.8-10.8) K/ul RBC 5.09 4.91 (4.70-6.10) M/uL Hgb 15.0 16.4 14.5 (14.0-18.0) g/dL Hct 44.1 48.0 43.3 (42.0-52.0) % Plt Count 198 189 (130-400) K/uL Neut # (Auto) 8.01 H (1.40-6.50) K/uL Lymph # (Auto) 0.46 L (1.20-3.40) K/uL Lucas # (Auto) 1.00 H (0.11-0.59) K/uL Eos # (Auto) 0.03 (0.00-0.50) K/uL Baso # (Auto) 0.03 (0.00-0.20) K/uL Comprehensive Metabolic Panel 09/02/25 09/02/25 09/03/25 Range/Units 10:14 15:04 02:36 Sodium 142 140 (136-145) mmol/L Potassium 3.7 4.6 D (3.5-5.1) mmol/L Chloride 108 H 110 H (98-107) mmol/L Carbon Dioxide 25 21 (21-32) mmol/L BUN 30 H 31 H (6-23) mg/dl Creatinine 1.45 H 1.33 1.42 H (0.6-1.4) mg/dl Glucose 119 H 150 H (70-99(Fasting)) mg/dl Calcium 8.7 8.5 L (8.6-10.3) mg/dl Direct Bilirubin 0.2 0.3 H (0-0.2) mg/dl AST 28 23 (13-39) U/L ALT 19 16 (7-52) U/L Alkaline Phosphatase 57 45 (34-104) U/L Total Protein 5.7 L 5.9 L (6.0-8.3) gm/dl Albumin 3.3 L 3.6 (3.4-5.0) gm/dl Intake and Output 09/02/25 09/03/25 09/03/25 22:59 06:59 14:59 Intake Total 1000 / 5224.050 1161.667 / 5224.050 1375 / 1375 Output Total 1000 / 1600 600 / 1600 Balance 0 / 3624.050 561.667 / 3624.050 1375 / 1375 Intake: IV 800 / 4724.050 861.667 / 4724.050 1375 / 1375 Acetaminophen 1,000 mg In 100 100 / 100 ml @ 400 mls/hr IV Q8H PRN Rx#: [id number] Albumin 5% 250 ml @ 500 mls/hr 500 / 500 IV Q30M [facility] Rx#:[id number] Plasma-Lyte A 1,000 ml @ 100 861.667 / 356.832 5442 / 1000 mls/hr IV .Q10H [facility] Rx#: [id number] Vancomycin HCl 1,250 mg In 275 / 275 Sodium Chloride 0.9% 250 ml @ 200 mls/hr IV ONE ONE Rx#: [id number] metroNIDAZOLE 500 mg In 100 ml 200 / 200 100 / 100 @ 100 mls/hr IV Q8H [facility] Rx#: [id number] Oral 200 / 500 300 / 500 Output: Stool 200 / 300 100 / 300 Urine Amount (Catheter) 800 / 1300 500 / 1300 Temp Sensing Carias 800 / 1300 500 / 1300 Other: Weight 82.2 kg 84.3 kg Weight Measurement Method Built in [facility] PG Care Time/CCT Total # of Minutes Spent Total Time Spent with Patient: Total time spent is greater than 50% in coordination of care (as documented) at patient's floor/unit and/or counseling patient: Coding Level of Care Code 88532 INT INP/OBS CARE 3/75MIN Diagnoses Hypotension I95.9 Cardiomyopathy I42.9 (HFpEF) heart failure with preserved ejection fraction I50.30 SVT (supraventricular tachycardia) I47.10
[2025-09-03] MEDS: ADENOSINE IV SOLN 3 MG/ML 2 ML VIAL IV STA ×2 (10:20→14:18)
[2025-09-03] MEDS: ADENOSINE IV SOLN 3 MG/ML 2 ML VIAL IV ONE (10:39)
--- NOTE | 2025-09-03 11:52 | Hospitalist Progress Note ---
Date of Service September 03, 2025 Assessment & Plan (1) AMS (altered mental status): (2) Septic shock: (3) Acute hypoxemic respiratory failure: (4) Peripheral arterial disease: (5) LINDSAY (obstructive sleep apnea): (6) Cardiomyopathy: (7) COPD with emphysema: (8) Thoracic aortic aneurysm (TAA): (9) Alcohol use disorder: (10) Type 2 diabetes mellitus: (11) Sepsis: (12) KIM (acute kidney injury): (13) History of lobectomy of lung: (14) Fusion of spine: Plan #Septic shock #SIRS/sepsis #Altered mental status #Acute Colitis - PCR positive for EPEC, cdiff gene positive, toxin negative - repeat KUB no obvious free air - DC cefepime, continue oral vanco - consult ID - Dry on exam, good response to 1L LR this AM. continue maintenance at 125cc per hour while stools are loose, watch for volume overload given cardiac sensitivity #Sinus Tach -See cardiology notes, Cardizem, #Hypermagnesemia - I do not see that he is currently on a supplement, presentation overall would be very consistent with hypomagnesemia syndrome, altered mental status, hypotension, refractory to volume resuscitation. - Still elevated, no exogenous sources, continue to monitor #Hypoxemic respiratory failure #COPD/emphysema #Status post right middle lobectomy - Postsurgical findings stable on CT, multifocal pneumonia possible, antibiotics as above, respiratory support with nebulizers, oxygen, RT consultation Advanced airway support-okay with family, including CPAP/BiPAP or intubation if needed -continue respiratory support, stable #Diarrhea #Abdominal pain prior to presentation - No clear source on CT, cefepime as above, serial examinations, Zosyn and cefepime for broad-spectrum coverage - Stool culture and C. difficile testing sent - See colitis above #KIM - Likely prerenal in the setting of acute illness as above, status post 30 mg/kg, continue to monitor, avoid nephrotoxic substances - slightly elevated, fluid as above, daily monitoring #Type 2 diabetes - Hold tirzepatide, sliding scale per ICU protocol on admission - within goal range #Alcohol use disorder history of withdrawl - naltrexone is on his home medication list, will review further with his - In regards to the role alcohol or alcohol withdrawal may be playing in current presentation, could certainly be exacerbating mental status changes - add liver functions and lipase - High risk for withdrawal, AWSS screen orders placed - reviewed with his , minimal to no use, reports one glass of wine last week, 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 Continue to monitor closely with AWSS -imprving #Hypertension -Hold antihypertensives in the setting of shock as above #recurrent migraine - Hold topiramate #Thoracic aortic aneurysm -No evidence of acute pathology on CT, continue to monitor #FEN NPO initally CODE STATUS - Full code in discussion with his . She states he would not want anything prolonged if the prognosis was grim Admission and Anticipated Discharge Date Admission Date: September 02, 2025 Subjective Somewhat better today. More awake and alert. Still having quite significant abdominal pain. States that he hurts "from my sternum to my pelvis" no specific location. Pain is occasionally crampy/colicky. Loose stools have improved somewhat but still present. Mild persistent fevers. Blood pressure has been stable, significant tachycardia this morning. Denies any shortness of breath or chest pain. Oxygen requirements have been stable. C. difficile gene was positive yesterday. Started on empiric oral Vanco. No pressor needs since admit to ICU. Physical Exam Constitutional: GEN: Acutely ill, lethargic, in Trendelenburg position in bed HEENT: MMM, NCAT, Palate clear, sclera anicteric NECK: No Bruit RESP: clear anteriorly, fine crackles laterally R>L CV: Tachycardic, no MRG ABD: Interval progression of distention. Generalized TTP, hyperactive BS EXTR: No Edema NEURO: GCS [id number], no focal deficits, no tremor Results & Data Results & Data Vital Signs (Past 12 Hours) Vital Signs Temp Pulse Pulse Resp BP Pulse Ox O2 Del Method 09/03/25 10:40 118/52 L 09/03/25 10:39 37.6 C H 94 H 20 93 Oxymask 09/03/25 10:35 121/62 09/03/25 10:33 37.6 C H 94 H 23 94 Oxymask 09/03/25 10:30 139/88 09/03/25 10:30 37.6 C H 95 H 20 91 Oxymask 09/03/25 10:26 131/74 09/03/25 10:24 37.6 C H 126 H 26 H 92 09/03/25 10:00 37.4 C 127 H 18 92 Oxymask 09/03/25 10:00 127/82 09/03/25 10:00 127/82 09/03/25 09:00 125/83 09/03/25 09:00 125/83 09/03/25 09:00 125/83 09/03/25 09:00 125/83 09/03/25 09:00 125/83 09/03/25 09:00 37.7 C H 127 H 23 93 Oxymask 09/03/25 08:00 37.7 C H 126 H 19 92 Oxymask 09/03/25 08:00 118/72 09/03/25 08:00 118/72 09/03/25 07:11 72 18 95 Room Air 09/03/25 07:00 104/64 09/03/25 07:00 37.9 C H 94 H 27 H 94 Oxymask 09/03/25 06:00 37.9 C H 119 H 18 86 L 09/03/25 06:00 109/72 09/03/25 06:00 109/72 09/03/25 06:00 109/72 09/03/25 06:00 109/72 09/03/25 05:03 38.1 C H 122 H 19 95 09/03/25 05:01 121/72 09/03/25 05:01 121/72 09/03/25 05:01 121/72 09/03/25 05:01 121/72 09/03/25 05:01 121/72 09/03/25 05:00 38.1 C H 122 H 19 95 09/03/25 04:00 38.0 C H 121 H 21 96 09/03/25 04:00 112/68 09/03/25 04:00 112/68 09/03/25 04:00 112/68 09/03/25 04:00 112/68 09/03/25 03:00 101/56 L 09/03/25 03:00 101/56 L 09/03/25 03:00 101/56 L 09/03/25 03:00 101/56 L 09/03/25 03:00 101/56 L 09/03/25 03:00 101/56 L 09/03/25 03:00 101/56 L 09/03/25 03:00 37.9 C H 120 H 21 94 09/03/25 02:00 37.8 C H 120 H 22 94 09/03/25 02:00 110/75 09/03/25 02:00 110/75 09/03/25 02:00 110/75 09/03/25 02:00 110/75 09/03/25 01:32 119 H 22 94 Nasal Cannula 09/03/25 01:00 98/66 L 09/03/25 01:00 98/66 L 09/03/25 01:00 98/66 L 09/03/25 01:00 98/66 L 09/03/25 01:00 37.9 C H 120 H 18 92 09/03/25 00:33 Nasal Cannula 09/03/25 00:00 38.2 C H 121 H 21 92 09/03/25 00:00 101/61 09/03/25 00:00 101/61 09/03/25 00:00 101/61 09/03/25 00:00 101/61 09/03/25 00:00 101/61 09/03/25 00:00 121 H O2 Flow Rate 09/03/25 10:40 09/03/25 10:39 3 09/03/25 10:35 09/03/25 10:33 3 09/03/25 10:30 09/03/25 10:30 3 09/03/25 10:26 09/03/25 10:24 09/03/25 10:00 3 09/03/25 10:00 09/03/25 10:00 09/03/25 09:00 09/03/25 09:00 09/03/25 09:00 09/03/25 09:00 09/03/25 09:00 09/03/25 09:00 3 09/03/25 08:00 3 09/03/25 08:00 09/03/25 08:00 09/03/25 07:11 09/03/25 07:00 09/03/25 07:00 3 09/03/25 06:00 09/03/25 06:00 09/03/25 06:00 09/03/25 06:00 09/03/25 06:00 09/03/25 05:03 09/03/25 05:01 09/03/25 05:01 09/03/25 05:01 09/03/25 05:01 09/03/25 05:01 09/03/25 05:00 09/03/25 04:00 09/03/25 04:00 09/03/25 04:00 09/03/25 04:00 09/03/25 04:00 09/03/25 03:00 09/03/25 03:00 09/03/25 03:00 09/03/25 03:00 09/03/25 03:00 09/03/25 03:00 09/03/25 03:00 09/03/25 03:00 09/03/25 02:00 09/03/25 02:00 09/03/25 02:00 09/03/25 02:00 09/03/25 02:00 09/03/25 01:32 3 09/03/25 01:00 09/03/25 01:00 09/03/25 01:00 09/03/25 01:00 09/03/25 01:00 09/03/25 00:33 3 09/03/25 00:00 09/03/25 00:00 09/03/25 00:00 09/03/25 00:00 09/03/25 00:00 09/03/25 00:00 09/03/25 00:00 Laboratory Results 09/02/25 12:45 Urine Culture - Pending Urine,Straight Cath 09/02/25 10:19 Aerobic Blood Culture - Pending Blood Anaerobic Blood Culture - Pending 09/02/25 10:19 Aerobic Blood Culture - Pending Blood Anaerobic Blood Culture - Pending 09/03/25 09/03/25 09/03/25 11:24 08:55 05:39 WBC RBC Hgb Hct MCV MCH MCHC RDW Std Deviation RDW Coeff of Roni Plt Count MPV Neutrophils % (Manual) Lymphocytes % (Manual) Monocytes % (Manual) Basophils % (Manual) Metamyelocytes % (Man) Neutrophils # (Manual) Total Absolute Neuts Lymphocytes # (Manual) Total Abs Lymphocytes Monocytes # (Manual) Basophils # (Manual) Metamyelocytes # (Man) Echinocytes PT INR Sodium Potassium Chloride Carbon Dioxide Anion Gap BUN Creatinine Est Cr Clr Drug Dosing eGFR BUN/Creatinine Ratio Glucose POC Glucose 146 H 142 H Lactate Calcium Magnesium Total Bilirubin Direct Bilirubin AST ALT Alkaline Phosphatase Total Creatine Kinase Troponin I High Sens 10.7 Total Protein Albumin Lipase TSH Urine Color Urine Appearance Urine pH Ur Specific [place] Urine Protein Urine Glucose (UA) Urine Ketones Urine Blood Urine Nitrite Urine Bilirubin Urine Urobilinogen Ur Leukocyte Esterase Urine WBC (Auto) Urine RBC (Auto) U Hyaline Cast (Auto) U Epithel Cells (Auto) Urine Bacteria (Auto) Calcium Oxalate Crystal Urine Comment Nasal Screen MRSA (PCR) Stl C. cayetanensis PCR Stool Rotavirus A PCR Stl Adenov F 40 PCR Stool Astrovirus (PCR) Stool Campylobacter PCR Stl C. diff Tox B Gene Stl C.difficile Tox A&B Stl C. diff [id number] Stool Cryptosporidium PCR Stl E.coli Shiga Tox PCR Stl Enterotoxigenic E PCR Stool EPEC (PCR) Stool EAEC (PCR) Stl E. histolytica PCR Stool Giardia Lamblia PCR Stool Salmonella PCR Stool Sapovirus (PCR) Stl P. shigelloides PCR Stl Shigella/EIEC PCR St Y.enterocolitica PCR Stool Vibrio (PCR) Stl Vibrio cholerae PCR Stl Norovirus GI/GII PCR Random Vancomycin Adenovirus (PCR) B. pertussis DNA (PCR) B.parapertussis DNA PCR C. pneumoniae DNA (PCR) Coronavirus OC43 (PCR) Coronavirus HKU1 (PCR) Coronavirus 229E (PCR) SARS-CoV-2 (PCR) Coronavirus NL63 (PCR) Hepatitis C Ab Screen Human Metapneumovir PCR Influenza Type A (PCR) Influenza Type B (PCR) M. pneumoniae (PCR) Parainfluenza 1 (PCR) Parainfluenza 2 (PCR) Parainfluenza 3 (PCR) Parainfluenza 4 (PCR) RSV (RT-PCR) RSV (PCR) Entero/Rhino (PCR) 09/03/25 09/02/25 09/02/25 02:36 Unknown Unknown WBC 7.21 RBC 4.91 Hgb 14.5 Hct 43.3 MCV 88.2 MCH 29.5 MCHC 33.5 RDW Std Deviation 49.7 H RDW Coeff of Roni 15.4 H Plt Count 189 MPV 11.3 Neutrophils % (Manual) 53 Lymphocytes % (Manual) 14 Monocytes % (Manual) 12 Basophils % (Manual) 1 Metamyelocytes % (Man) 20 Neutrophils # (Manual) 3.82 Total Absolute Neuts 3.82 Lymphocytes # (Manual) 1.01 L Total Abs Lymphocytes 1.01 L Monocytes # (Manual) 0.87 H Basophils # (Manual) 0.07 Metamyelocytes # (Man) 1.44 H Echinocytes 1+ PT 13.4 H INR 1.3 H Sodium Potassium Chloride Carbon Dioxide Anion Gap BUN Creatinine 1.42 H Est Cr Clr Drug Dosing 44.3 eGFR 50.58 BUN/Creatinine Ratio Glucose POC Glucose Lactate Calcium Magnesium 4.1 H Total Bilirubin 1.1 H Direct Bilirubin 0.3 H AST 23 ALT 16 Alkaline Phosphatase 45 Total Creatine Kinase Troponin I High Sens 12.8 Total Protein 5.9 L Albumin 3.6 Lipase TSH Urine Color Urine Appearance Urine pH Ur Specific [place] Urine Protein Urine Glucose (UA) Urine Ketones Urine Blood Urine Nitrite Urine Bilirubin Urine Urobilinogen Ur Leukocyte Esterase Urine WBC (Auto) Urine RBC (Auto) U Hyaline Cast (Auto) U Epithel Cells (Auto) Urine Bacteria (Auto) Calcium Oxalate Crystal Urine Comment Nasal Screen MRSA (PCR) Stl C. cayetanensis PCR Stool Rotavirus A PCR Stl Adenov F 40/41 PCR Stool Astrovirus (PCR) Stool Campylobacter PCR Stl C. diff Tox B Gene Stl C.difficile Tox A&B Stl C. diff [id number] Stool Cryptosporidium PCR Stl E.coli Shiga Tox PCR Stl Enterotoxigenic E PCR Stool EPEC (PCR) Stool EAEC (PCR) Stl E. histolytica PCR Stool Giardia Lamblia PCR Stool Salmonella PCR Stool Sapovirus (PCR) Stl P. shigelloides PCR Stl Shigella/EIEC PCR St Y.enterocolitica PCR Stool Vibrio (PCR) Stl Vibrio cholerae PCR Stl Norovirus GI/GII PCR Random Vancomycin 8.7 L Adenovirus (PCR) B. pertussis DNA (PCR) B.parapertussis DNA PCR C. pneumoniae DNA (PCR) Coronavirus OC43 (PCR) Coronavirus HKU1 (PCR) Coronavirus 229E (PCR) SARS-CoV-2 (PCR) Coronavirus NL63 (PCR) Hepatitis C Ab Screen Human Metapneumovir PCR Influenza Type A (PCR) Not Detected Influenza Type B (PCR) Not Detected Negative M. pneumoniae (PCR) Not Detected Parainfluenza 1 (PCR) Not Detected Parainfluenza 2 (PCR) Not Detected Parainfluenza 3 (PCR) Not Detected Parainfluenza 4 (PCR) Not Detected RSV (RT-PCR) Negative RSV (PCR) Not Detected Entero/Rhino (PCR) Not Detected 09/02/25 09/02/25 09/02/25 Unknown Unknown 23:17 WBC RBC Hgb Hct MCV MCH MCHC RDW Std Deviation RDW Coeff of Roni Plt Count MPV Neutrophils % (Manual) Lymphocytes % (Manual) Monocytes % (Manual) Basophils % (Manual) Metamyelocytes % (Man) Neutrophils # (Manual) Total Absolute Neuts Lymphocytes # (Manual) Total Abs Lymphocytes Monocytes # (Manual) Basophils # (Manual) Metamyelocytes # (Man) Echinocytes PT INR Sodium Potassium Chloride Carbon Dioxide Anion Gap BUN Creatinine Est Cr Clr Drug Dosing eGFR BUN/Creatinine Ratio Glucose POC Glucose 124 H Lactate Calcium Magnesium Total Bilirubin Direct Bilirubin AST ALT Alkaline Phosphatase Total Creatine Kinase Troponin I High Sens Total Protein Albumin Lipase TSH Urine Color Urine Appearance Urine pH Ur Specific [place] Urine Protein Urine Glucose (UA) Urine Ketones Urine Blood Urine Nitrite Urine Bilirubin Urine Urobilinogen Ur Leukocyte Esterase Urine WBC (Auto) Urine RBC (Auto) U Hyaline Cast (Auto) U Epithel Cells (Auto) Urine Bacteria (Auto) Calcium Oxalate Crystal Urine Comment Nasal Screen MRSA (PCR) Negative Stl C. cayetanensis PCR Stool Rotavirus A PCR Stl Adenov F 40/ PCR Stool Astrovirus (PCR) Stool Campylobacter PCR Stl C. diff Tox B Gene Stl C.difficile Tox A&B Stl C. diff [id number] Stool Cryptosporidium PCR Stl E.coli Shiga Tox PCR Stl Enterotoxigenic E PCR Stool EPEC (PCR) Stool EAEC (PCR) Stl E. histolytica PCR Stool Giardia Lamblia PCR Stool Salmonella PCR Stool Sapovirus (PCR) Stl P. shigelloides PCR Stl Shigella/EIEC PCR St Y.enterocolitica PCR Stool Vibrio (PCR) Stl Vibrio cholerae PCR Stl Norovirus GI/GII PCR Random Vancomycin Adenovirus (PCR) Not Detected B. pertussis DNA (PCR) Not Detected B.parapertussis DNA PCR Not Detected C. pneumoniae DNA (PCR) Not Detected Coronavirus OC43 (PCR) Not Detected Coronavirus HKU1 (PCR) Not Detected Coronavirus 229E (PCR) Not Detected SARS-CoV-2 (PCR) Not Detected NEGATIVE Coronavirus NL63 (PCR) Not Detected Hepatitis C Ab Screen Human Metapneumovir PCR Not Detected Influenza Type A (PCR) Negative Influenza Type B (PCR) M. pneumoniae (PCR) Parainfluenza 1 (PCR) Parainfluenza 2 (PCR) Parainfluenza 3 (PCR) Parainfluenza 4 (PCR) RSV (RT-PCR) RSV (PCR) Entero/Rhino (PCR) 09/02/25 09/02/25 09/02/25 20:34 18:00 17:38 WBC RBC Hgb Hct MCV MCH MCHC RDW Std Deviation RDW Coeff of Roni Plt Count MPV Neutrophils % (Manual) Lymphocytes % (Manual) Monocytes % (Manual) Basophils % (Manual) Metamyelocytes % (Man) Neutrophils # (Manual) Total Absolute Neuts Lymphocytes # (Manual) Total Abs Lymphocytes Monocytes # (Manual) Basophils # (Manual) Metamyelocytes # (Man) Echinocytes PT INR Sodium Potassium Chloride Carbon Dioxide Anion Gap BUN Creatinine Est Cr Clr Drug Dosing eGFR BUN/Creatinine Ratio Glucose POC Glucose 122 H Lactate 2.3 H* Calcium Magnesium Total Bilirubin Direct Bilirubin AST ALT Alkaline Phosphatase Total Creatine Kinase Troponin I High Sens 13.1 D Total Protein Albumin Lipase TSH Urine Color Urine Appearance Urine pH Ur Specific [place] Urine Protein Urine Glucose (UA) Urine Ketones Urine Blood Urine Nitrite Urine Bilirubin Urine Urobilinogen Ur Leukocyte Esterase Urine WBC (Auto) Urine RBC (Auto) U Hyaline Cast (Auto) U Epithel Cells (Auto) Urine Bacteria (Auto) Calcium Oxalate Crystal Urine Comment Nasal Screen MRSA (PCR) Stl C. cayetanensis PCR Stool Rotavirus A PCR Stl Adenov F 40 PCR Stool Astrovirus (PCR) Stool Campylobacter PCR Stl C. diff Tox B Gene Stl C.difficile Tox A&B Stl C. diff [id number] Stool Cryptosporidium PCR Stl E.coli Shiga Tox PCR Stl Enterotoxigenic E PCR Stool EPEC (PCR) Stool EAEC (PCR) Stl E. histolytica PCR Stool Giardia Lamblia PCR Stool Salmonella PCR Stool Sapovirus (PCR) Stl P. shigelloides PCR Stl Shigella/EIEC PCR St Y.enterocolitica PCR Stool Vibrio (PCR) Stl Vibrio cholerae PCR Stl Norovirus GI/GII PCR Random Vancomycin Adenovirus (PCR) B. pertussis DNA (PCR) B.parapertussis DNA PCR C. pneumoniae DNA (PCR) Coronavirus OC43 (PCR) Coronavirus HKU1 (PCR) Coronavirus 229E (PCR) SARS-CoV-2 (PCR) Coronavirus NL63 (PCR) Hepatitis C Ab Screen Human Metapneumovir PCR Influenza Type A (PCR) Influenza Type B (PCR) M. pneumoniae (PCR) Parainfluenza 1 (PCR) Parainfluenza 2 (PCR) Parainfluenza 3 (PCR) Parainfluenza 4 (PCR) RSV (RT-PCR) RSV (PCR) Entero/Rhino (PCR) 09/02/25 09/02/25 09/02/25 16:18 15:04 14:20 WBC RBC Hgb 16.4 Hct 48.0 MCV MCH MCHC RDW Std Deviation RDW Coeff of Roni Plt Count MPV Neutrophils % (Manual) Lymphocytes % (Manual) Monocytes % (Manual) Basophils % (Manual) Metamyelocytes % (Man) Neutrophils # (Manual) Total Absolute Neuts Lymphocytes # (Manual) Total Abs Lymphocytes Monocytes # (Manual) Basophils # (Manual) Metamyelocytes # (Man) Echinocytes PT INR Sodium 140 Potassium 4.6 D Chloride 110 H Carbon Dioxide 21 Anion Gap 9 BUN 31 H Creatinine 1.33 Est Cr Clr Drug Dosing 47.3 eGFR 54.71 BUN/Creatinine Ratio 23.3 H Glucose 150 H POC Glucose 135 H Lactate 2.8 H* Calcium 8.5 L Magnesium 3.9 H Total Bilirubin Direct Bilirubin AST ALT Alkaline Phosphatase Total Creatine Kinase 154 Troponin I High Sens Total Protein Albumin Lipase 14 TSH 0.534 Urine Color Urine Appearance Urine pH Ur Specific [place] Urine Protein Urine Glucose (UA) Urine Ketones Urine Blood Urine Nitrite Urine Bilirubin Urine Urobilinogen Ur Leukocyte Esterase Urine WBC (Auto) Urine RBC (Auto) U Hyaline Cast (Auto) U Epithel Cells (Auto) Urine Bacteria (Auto) Calcium Oxalate Crystal Urine Comment Nasal Screen MRSA (PCR) Stl C. cayetanensis PCR Stool Rotavirus A PCR Stl Adenov F 40/41 PCR Stool Astrovirus (PCR) Stool Campylobacter PCR Stl C. diff Tox B Gene Stl C.difficile Tox A&B Stl C. diff [id number] Stool Cryptosporidium PCR Stl E.coli Shiga Tox PCR Stl Enterotoxigenic E PCR Stool EPEC (PCR) Stool EAEC (PCR) Stl E. histolytica PCR Stool Giardia Lamblia PCR Stool Salmonella PCR Stool Sapovirus (PCR) Stl P. shigelloides PCR Stl Shigella/EIEC PCR St Y.enterocolitica PCR Stool Vibrio (PCR) Stl Vibrio cholerae PCR Stl Norovirus GI/GII PCR Random Vancomycin Adenovirus (PCR) B. pertussis DNA (PCR) B.parapertussis DNA PCR C. pneumoniae DNA (PCR) Coronavirus OC43 (PCR) Coronavirus HKU1 (PCR) Coronavirus 229E (PCR) SARS-CoV-2 (PCR) Coronavirus NL63 (PCR) Hepatitis C Ab Screen Negative Human Metapneumovir PCR Influenza Type A (PCR) Influenza Type B (PCR) M. pneumoniae (PCR) Parainfluenza 1 (PCR) Parainfluenza 2 (PCR) Parainfluenza 3 (PCR) Parainfluenza 4 (PCR) RSV (RT-PCR) RSV (PCR) Entero/Rhino (PCR) 09/02/25 09/02/25 13:30 12:45 WBC RBC Hgb Hct MCV MCH MCHC RDW Std Deviation RDW Coeff of Roni Plt Count MPV Neutrophils % (Manual) Lymphocytes % (Manual) Monocytes % (Manual) Basophils % (Manual) Metamyelocytes % (Man) Neutrophils # (Manual) Total Absolute Neuts Lymphocytes # (Manual) Total Abs Lymphocytes Monocytes # (Manual) Basophils # (Manual) Metamyelocytes # (Man) Echinocytes PT INR Sodium Potassium Chloride Carbon Dioxide Anion Gap BUN Creatinine Est Cr Clr Drug Dosing eGFR BUN/Creatinine Ratio Glucose POC Glucose Lactate Calcium Magnesium Total Bilirubin Direct Bilirubin AST ALT Alkaline Phosphatase Total Creatine Kinase Troponin I High Sens Total Protein Albumin Lipase TSH Urine Color [employer] Urine Appearance Clear Urine pH 5.0 Ur Specific [place] > 1.045 H Urine Protein Trace H Urine Glucose (UA) Negative Urine Ketones Trace H Urine Blood Negative Urine Nitrite Positive A Urine Bilirubin 2+ H Urine Urobilinogen Negative Ur Leukocyte Esterase 1+ H Urine WBC (Auto) 0-5 Urine RBC (Auto) 0-2 U Hyaline Cast (Auto) 11-20 H U Epithel Cells (Auto) 0-2 Urine Bacteria (Auto) None Seen Calcium Oxalate Crystal Present A Urine Comment Nasal Screen MRSA (PCR) Stl C. cayetanensis PCR Not Detected Stool Rotavirus A PCR Not Detected Stl Adenov F 40/41 PCR Not Detected Stool Astrovirus (PCR) Not Detected Stool Campylobacter PCR Not Detected Stl C. diff Tox B Gene Positive Cdiff Gene A Stl C.difficile Tox A&B Negative Cdiff Toxin Stl C. diff [id number] NEGATIVE Stool Cryptosporidium PCR Not Detected Stl E.coli Shiga Tox PCR Not Detected Stl Enterotoxigenic E PCR Not Detected Stool EPEC (PCR) DETECTED A* Stool EAEC (PCR) Not Detected Stl E. histolytica PCR Not Detected Stool Giardia Lamblia PCR Not Detected Stool Salmonella PCR Not Detected Stool Sapovirus (PCR) Not Detected Stl P. shigelloides PCR Not Detected Stl Shigella/EIEC PCR Not Detected St Y.enterocolitica PCR Not Detected Stool Vibrio (PCR) Not Detected Stl Vibrio cholerae PCR Not Detected Stl Norovirus GI/GII PCR Not Detected Random Vancomycin Adenovirus (PCR) B. pertussis DNA (PCR) B.parapertussis DNA PCR C. pneumoniae DNA (PCR) Coronavirus OC43 (PCR) Coronavirus HKU1 (PCR) Coronavirus 229E (PCR) SARS-CoV-2 (PCR) Coronavirus NL63 (PCR) Hepatitis C Ab Screen Human Metapneumovir PCR Influenza Type A (PCR) Influenza Type B (PCR) M. pneumoniae (PCR) Parainfluenza 1 (PCR) Parainfluenza 2 (PCR) Parainfluenza 3 (PCR) Parainfluenza 4 (PCR) RSV (RT-PCR) RSV (PCR) Entero/Rhino (PCR) Diagnostic Findings KUB X-Ray 09/03/25 08:10 KUB CLINICAL HISTORY: Colitis, distention, concern for perforation. COMPARISON STUDY: CT of the abdomen and pelvis and KUB September 02, 2025. FINDINGS: Surgical clips from prostatectomy are noted. Bibasilar opacities are incidentally noted. There is a suspected small left pleural effusion. Large amount of poorly formed stool throughout the colon and rectum is again noted. Distention of small and large bowel has mildly increased. Sensitivity for detection of free air is diminished on supine exam but none is identified. IMPRESSION: 1. Increase in gaseous distention of small and large bowel. This is likely related to the colitis shown on CT. However, a distal colonic obstruction would be difficult to completely exclude. 2. No evidence for free air although sensitivity diminished on this supine exam. If persistent clinical suspicion for perforation, a CT of the abdomen and pelvis is recommended. 3. Large amount of poorly formed stool throughout the colon and rectum. ACT 112: Negative or not required by law. Electronically signed by: Israel Lewis M.D. 09/03/2025 9:09 AM PG Care Time/CCT Total # of Minutes Spent Total Time Spent with Patient: Total time spent is greater than 50% in coordination of care (as documented) at patient's floor/unit and/or counseling patient: Coding Level of Care Code 64307 SUB INP/OBS CARE 3/50MIN Diagnoses AMS (altered mental status) R41.82 Septic shock A41.9; R65.21 Acute hypoxemic respiratory failure J96.01 Peripheral arterial disease I73.9 LINDSAY (obstructive sleep apnea) G47.33 Cardiomyopathy I42.9 COPD with emphysema J43.9 Thoracic aortic aneurysm (TAA) I71.20 Alcohol use disorder F10.90 Type 2 diabetes mellitus without complication, without long-term current use of insulin E11.9 Diabetes mellitus complication status: without complication 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
--- NOTE | 2025-09-03 13:12 | Infectious Disease Consult ---
Date of Consultation September 03, 2025 Assessment & Plan (1) Enteropathogenic Escherichia coli infection: (2) C. difficile colitis: Plan Problems: #EPEC #? C diff #Abdominal pain #Shock Micro: 09/02 UCx: NG 09/02 BCx x2: pending Abx: PO vanc 09/02 - present Metronidazole 09/02 - present Cefepime 09/02 - 09/03 IV vanc 09/02 - 09/03 79 yo M with history of ischemic cardiomyopathy, HFpEF, PAD, COPD with emphysema, thoracic aortic aneurysm, LINDSAY, degenerative back disease, history of recurrent multifocal pneumonia, HTN with labile BPs, history of alcohol dependence, migraine who presented on 09/02 with abrupt onset confusion, weakness, found to have colitis, sepsis. Per his , he was in his usual state of health the day prior to presentation. Overnight around 3am, pt went to the bathroom, had cramps and dry heaving. A few hours later, pt attempted to get up to use the bathroom again but was unable to do so independently and needed assistance from his . She reports he had a small amount of loose stool at that time, no blood noted in the stool. He was so weak that he was unable to get back to bed independently. EMS was called, and noted pt to be febrile to 102, hypotensive, hypoxic. Was placed on 3 L NC. On presentation, pt was afebrile, HR 120, BP 70/54. Did later become febrile to 38. Labs showed WBC 9.58, Cr 1.45, lactate 1.7 --> 2.8, procalcitonin 18.4. UA with 0-5 WBCs. RVP negative. CTAP with IV contrast showed moderate circumferential wall thickening of mid to distal descending and proximal to mid sigmoid colon, associated inflammation, findings representing a nonspecific colitis, possibly stercoral. Infectious or ischemic colitis also within differential. Large amount of stool within the colon and rectum. CTA chest with no PE, dependent airspace opacities favor atelectasis on top of chronic scarring, no airspace consolidation typical for pneumonia. Pt given IVF, started on vanc and cefepime. Was hypotensive despite fluid resuscitation, so admitted to ICU. Briefly on Levophed in ER. Stool PCR panel positive for EPEC and C diff gene, negative for C diff toxin. Rectal tube placed 09/02. Pt continues with elevated temps, last fever this AM. Pt reports continued severe pain from his chest down to his pelvis, slightly improved from admission. He feels this pain is in his muscle. Thihnks his diarrhea is improving, and he is not having abdominal cramping as much. reports he had C diff years ago. His denies diarrhea, and states she eats mostly the same things as her , aside from some fruits that her eats. KUB repeated 09/03, showing increase in gaseous distension of small and large bowel, likely related to colitis on CT, however distal colonic obstruction difficult to completely exclude. Large amount of poorly formed stool throughout colon and rectum. Discussion: EPEC is typically managed with supportive care, although antibiotics may be used in severe, bloody, or persistent diarrhea. C diff PCR positive, toxin negative c ould indicate C diff colonization rather than infection, but reasonable to treat in the setting of significant diarrhea. Recommendations: - Starting ceftriaxone 2 g IV q24h for EPEC - Continue PO vanc 500 mg QID and metronidazole 500 mg IV q8h for possible fulminant C diff - Follow-up blood cultures Will continue to follow Consultation Information Consultation was provided via telemedicine using two-way real-time interactive telecommunication between the patient and the telemedicine provider. For the duration of the visit, the provider was performing the assessment from a different facility than the patient. This includesuse of bluetooth stethoscope forauscultationperformed by the telepresenter that the telemedicine provider can hear if described in the physical exam. Trades[employer] Worker contact information: Please call [facility] [phone]. (Phone Number For Physician Use Only) After establishing a telemedicine visit, patient was: Patient was verified with two unique identifiers, Patient/authorized rep acknowledged consent and understanding and Gave permission to continue telehealth session Time Spent with Patient: Initial => 55 min History of Present Illness Reason for Consultation: Infectious diarrhea Attending Physician: Anup Aranda MD History of Present Illness 79 yo M with history of ischemic cardiomyopathy, HFpEF, PAD, COPD with emphysema, thoracic aortic aneurysm, LINDSAY, degenerative back disease, history of recurrent multifocal pneumonia, HTN with labile BPs, history of alcohol dependence, migrain who presented on 09/02 with abrupt onset confusion, weakness. Per his , he was in his usual state of health yesterday. Overnight around 3am, pt went to the bathroom, had cramps and dry heaving. A few hours later, pt attempted to get up to use the bathroom again but was unable to do so independently and needed assistance from his . She reports he had a small amount of loose stool at that time, no blood noted in the stool. He was so weak that he was unable to get back to bed independently. EMS was called, and noted pt to be febrile to 102, hypotensive, hypoxic. Was placed on 3 L NC. On presentation, pt was afebrile, HR 120, BP 70/54. Did later become febrile to 38. Labs showed WBC 9.58, Cr 1.45, lactate 1.7 --> 2.8, procalcitonin 18.4. UA with 0-5 WBCs. RVP negative. CTAP with IV contrast showed moderate circumferential wall thickening of mid to distal descending and proximal to mid sigmoid colon, associated inflammation, findings representing a nonspecific colitis, possibly stercoral. Infectious or ischemic colitis also within differential. Large amount of stool within the colon and rectum. CTA chest with no PE, dependent airspace opacities favor atelectasis on top of chronic scarring, no airspace consolidation typical for pneumonia. Pt given IVF, started on vanc and cefepime. Was hypotensive despite fluid resuscitation, so admitted to ICU. Briefly on Levophed in ER. Stool PCR panel positive for EPEC and C diff gene, negative for C diff toxin. Rectal tube placed 09/02. Pt continues with elevated temps, last fever this AM. Pt reports continued severe pain from his chest down to his pelvis, slightly improved from admission. He feels this pain is in his muscle. Thihnks his diarrhea is improving, and he is not having abdominal cramping as much. reports he had C diff years ago. His denies diarrhea, and states she eats mostly the same things as her , aside from some fruits that her eats. Allergies Allergy/AdvReac Type Severity Reaction Status Date / Time Penicillins Allergy Severe SWELLING, Verified 08/12/25 14:57 TROUBLE BREATHING fluvastatin [From Lescol] Allergy Unknown Unknown Verified 08/12/25 14:57 lisinopril Allergy Unknown Unknown Verified 08/12/25 14:57 lovastatin Allergy Unknown PT DOESN'T Verified 08/12/25 14:57 REMEMBER REACTION-NAUSEA? simvastatin Allergy Unknown PT DOESN'T Verified 08/12/25 14:57 REMEMBER REACTION-NAUSEA? diazepam AdvReac Mild lethargy Verified 08/12/25 14:57 losartan AdvReac Mild Dizziness Verified 08/12/25 14:57 [id number]-IKP-[id number] Reductase AdvReac Unknown NAUSEA Verified 08/12/25 14:57 Inhibitor [Antxian-Pim-Spd Reductase Inhibitor] Home Medications Medication Instructions Recorded Confirmed Type loratadine 10 mg tablet (Claritin) 10 mg PO QAM allergies 03/01/21 09/02/25 History multivitamin 1 tab PO QAM 03/01/21 09/02/25 History omeprazole 20 mg tablet,delayed 40 mg PO QAM 03/01/21 09/02/25 History release naltrexone 50 mg tablet 50 mg PO HS 11/16/21 09/02/25 History thiamine HCl (vitamin B1) 100 mg 300 mg PO BID 04/28/23 09/02/25 History tablet (Vitamin B-1) lidocaine 5 % topical patch 1 patch topical DAILY PRN Pain 05/02/23 09/02/25 History clotrimazole 1 % topical cream 1 applic topical BID PRN Rash 12/12/23 09/02/25 History clindamycin phosphate 1 % topical 1 applic topical BID PRN Breakouts 09/05/24 09/02/25 History solution pregabalin 225 mg capsule 225 mg PO BID 09/05/24 09/02/25 History terazosin 10 mg capsule 10 mg PO HS 09/05/24 09/02/25 History topiramate 25 mg tablet 25 mg PO BID Migraine Prevention 09/05/24 09/02/25 History vitamin E 268 mg (400 unit) capsule 268 mg PO QAM 09/05/24 09/02/25 History baclofen 5 mg tablet 5 mg PO DAILY PRN Muscle Spasm 11/23/24 09/02/25 History ezetimibe 10 mg tablet (Zetia) 10 mg PO QAM 12/28/24 09/02/25 History montelukast 10 mg tablet 10 mg PO HS #90 tabs 05/30/25 09/02/25 Rx trospium 60 mg capsule,extended 60 mg PO DAILY #30 caps 06/04/25 09/02/25 Rx release 24 hr bumetanide 1 mg tablet 2 mg PO QAM 08/12/25 09/02/25 History carvedilol 12.5 mg tablet (Coreg) 12.5 mg PO BID 08/12/25 09/02/25 History cholecalciferol (vitamin D3) 10 10 mcg PO DAILY 08/12/25 09/02/25 History mcg (400 unit) capsule omega 2-jfs-umt-fish oil 900 1 cap PO BID 08/12/25 09/02/25 History mg-1,400 mg capsule,delayed release potassium chloride 20 mEq 10 meq PO DAILY 08/12/25 09/02/25 History tablet,extended release(part/cryst) salicylic acid 3 % shampoo 1 ea topical DAILY PRN Other 08/12/25 09/02/25 History selenium sulfide 2.5 % lotion 1 applic topical Q OTHER DAY PRN 08/12/25 09/02/25 History Other sennosides 8.6 mg tablet (Senokot) 17.2 mg PO HS PRN constipation 08/12/25 09/02/25 History tiotropium 2.5 mcg-olodaterol 2.5 2 puff inhalation QAM 08/12/25 09/02/25 History mcg/actuation mist for inhalation tirzepatide 7.5 mg/0.5 mL 7.5 mg (0.5 mL) subcut Q7D #6 mL 08/21/25 09/02/25 Rx subcutaneous pen injector (Sathish) Patient History Medical History Asthma Hypertension History of injury of tendon bicep tear w/ repair History of alcohol withdrawal delirium (2020) Hypotension 02/07/25- states had blood pressure medication adjustment early 12/2023 by pcp; bp meds currently back up to previous dosages. History of pneumonia (2020) Tremor Pulmonary nodule monitoring Peripheral neuropathy Migraine Diabetes diet controlled Arthritis History of prostate cancer (2019) History of COVID-19 2021- no hosp; resolved H/O alcohol dependence has approx 1 drink per month now > "quit in February 2022" Osteoarthritis SOB (shortness of breath) on exertion 02/08/24- recent increase in SOB, nausea and weakness with exertion (home bp reading during episode 112/66) Asthma uses rescue inhaler 1-2 times per week Hyperlipidemia Surgical History History of cataract surgery right Status post lung surgery H/O elbow surgery H/O prostatectomy History of bronchoscopy History of colonoscopy History of surgery on arm LEFT ELBOW-TENDON SURG Fusion of spine CERVICAL > "slightly" limited ROM side to side History of lobectomy of lung RIGHT MIDDLE LOBE-BENIGN Family History Father Diabetes Cardiac disorder Unknown Hypertension Mother Cardiac disorder Social History Smoking Status: Former smoker Tobacco Type: Cigarettes Age Started Using Tobacco: 20; Age Quit Using Tobacco: 61; Second Hand Exposure: No; Do You Dip or Chew Tobacco: No; Hx Alcohol Use: Yes Alcohol type: beer and wine Hx Substance Use: No Preferred Language: Libyan Communication Ability: Effective 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 Physical Exam Physical Exam: GEN: fatigued appearing, in NAD. RESP: No increased work of breathing ABD: distended, ttp diffusely, worst in lower abdomen SKIN: No lesions or rashes on exposed skin. Results & Data Vital Signs (Past 12 Hours) Vital Signs Temp Pulse Pulse Resp BP Pulse Ox O2 Del Method 09/03/25 12:22 121 H 18 93 Oxymask 09/03/25 12:14 Oxymask 09/03/25 11:00 37.7 C H 128 H 25 H 91 09/03/25 11:00 130/84 09/03/25 11:00 130/84 09/03/25 11:00 130/84 09/03/25 11:00 130/84 09/03/25 11:00 130 H 09/03/25 10:55 132/80 09/03/25 10:55 132/80 09/03/25 10:55 132/80 09/03/25 10:55 132/80 09/03/25 10:55 132/80 09/03/25 10:54 37.6 C H 95 H 23 93 09/03/25 10:50 118/52 L 09/03/25 10:50 118/52 L 09/03/25 10:50 118/52 L 09/03/25 10:50 118/52 L 09/03/25 10:48 37.6 C H 94 H 39 H 94 09/03/25 10:45 133/71 09/03/25 10:45 133/71 09/03/25 10:45 133/71 09/03/25 10:45 26 H 94 09/03/25 10:42 19 95 09/03/25 10:40 118/52 L 09/03/25 10:39 37.6 C H 94 H 20 93 Oxymask 09/03/25 10:35 121/62 09/03/25 10:33 37.6 C H 94 H 23 94 Oxymask 09/03/25 10:30 139/88 09/03/25 10:30 37.6 C H 95 H 20 91 Oxymask 09/03/25 10:26 131/74 09/03/25 10:24 37.6 C H 126 H 26 H 92 09/03/25 10:00 37.4 C 127 H 18 92 Oxymask 09/03/25 10:00 127/82 09/03/25 10:00 127/82 09/03/25 09:00 125/83 09/03/25 09:00 125/83 09/03/25 09:00 125/83 09/03/25 09:00 125/83 09/03/25 09:00 125/83 09/03/25 09:00 37.7 C H 127 H 23 93 Oxymask 09/03/25 08:00 37.7 C H 126 H 19 92 Oxymask 09/03/25 08:00 118/72 09/03/25 08:00 118/72 09/03/25 07:11 72 18 95 Room Air 09/03/25 07:00 104/64 09/03/25 07:00 37.9 C H 94 H 27 H 94 Oxymask 09/03/25 06:00 37.9 C H 119 H 18 86 L 09/03/25 06:00 109/72 09/03/25 06:00 109/72 09/03/25 06:00 109/72 09/03/25 06:00 109/72 09/03/25 05:03 38.1 C H 122 H 19 95 09/03/25 05:01 121/72 09/03/25 05:01 121/72 09/03/25 05:01 121/72 09/03/25 05:01 121/72 09/03/25 05:01 121/72 09/03/25 05:00 38.1 C H 122 H 19 95 09/03/25 04:00 38.0 C H 121 H 21 96 09/03/25 04:00 112/68 09/03/25 04:00 112/68 09/03/25 04:00 112/68 09/03/25 04:00 112/68 09/03/25 03:00 101/56 L 09/03/25 03:00 101/56 L 09/03/25 03:00 101/56 L 09/03/25 03:00 101/56 L 09/03/25 03:00 101/56 L 09/03/25 03:00 101/56 L 09/03/25 03:00 101/56 L 09/03/25 03:00 37.9 C H 120 H 21 94 09/03/25 02:00 37.8 C H 120 H 22 94 09/03/25 02:00 110/75 09/03/25 02:00 110/75 09/03/25 02:00 110/75 09/03/25 02:00 110/75 09/03/25 01:32 119 H 22 94 Nasal Cannula O2 Flow Rate 09/03/25 12:22 09/03/25 12:14 4 09/03/25 11:00 09/03/25 11:00 09/03/25 11:00 09/03/25 11:00 09/03/25 11:00 09/03/25 11:00 09/03/25 10:55 09/03/25 10:55 09/03/25 10:55 09/03/25 10:55 09/03/25 10:55 09/03/25 10:54 09/03/25 10:50 09/03/25 10:50 09/03/25 10:50 09/03/25 10:50 09/03/25 10:48 09/03/25 10:45 09/03/25 10:45 09/03/25 10:45 09/03/25 10:45 09/03/25 10:42 09/03/25 10:40 09/03/25 10:39 3 09/03/25 10:35 09/03/25 10:33 3 09/03/25 10:30 09/03/25 10:30 3 09/03/25 10:26 09/03/25 10:24 09/03/25 10:00 3 09/03/25 10:00 09/03/25 10:00 09/03/25 09:00 09/03/25 09:00 09/03/25 09:00 09/03/25 09:00 09/03/25 09:00 09/03/25 09:00 3 09/03/25 08:00 3 09/03/25 08:00 09/03/25 08:00 09/03/25 07:11 09/03/25 07:00 09/03/25 07:00 3 09/03/25 06:00 09/03/25 06:00 09/03/25 06:00 09/03/25 06:00 09/03/25 06:00 09/03/25 05:03 09/03/25 05:01 09/03/25 05:01 09/03/25 05:01 09/03/25 05:01 09/03/25 05:01 09/03/25 05:00 09/03/25 04:00 09/03/25 04:00 09/03/25 04:00 09/03/25 04:00 09/03/25 04:00 09/03/25 03:00 09/03/25 03:00 09/03/25 03:00 09/03/25 03:00 09/03/25 03:00 09/03/25 03:00 09/03/25 03:00 09/03/25 03:00 09/03/25 02:00 09/03/25 02:00 09/03/25 02:00 09/03/25 02:00 09/03/25 02:00 09/03/25 01:32 3 Laboratory Results Short CBC 09/03/25 Range/Units 02:36 WBC 7.21 (4.8-10.8) K/ul Hgb 14.5 (14.0-18.0) g/dL Hct 43.3 (42.0-52.0) % Plt Count 189 (130-400) K/uL BMP 09/03/25 02:36 Creatinine 1.42 H Liver Function 09/03/25 Range/Units 02:36 Total Bilirubin 1.1 H (0.2-1.0) mg/dl Direct Bilirubin 0.3 H (0-0.2) mg/dl AST 23 (13-39) U/L ALT 16 (7-52) U/L Alkaline Phosphatase 45 (34-104) U/L Albumin 3.6 (3.4-5.0) gm/dl Medications Administered Current Inpatient Medications Albuterol (Albut/Ipratrop 3mg/0.5mg Neb 3 Ml Vial) 3 ml NEB Q6R JOSHUA; Protocol Stop: 10/02/25 18:59 Last Admin: 09/03/25 12:21 Dose: 3 ml Diltiazem HCl (Diltiazem Hcl 60 Mg Tab) 60 mg PO Q8H JOSHUA Stop: 10/03/25 10:59 Last Admin: 09/03/25 11:18 Dose: 60 mg Heparin Sodium (Porcine) (Heparin Sod 5,000 Unit/0.5 Ml Vial) 5,000 units SQ Q12 JOSHUA Stop: 10/03/25 08:59 Last Admin: 09/03/25 09:15 Dose: 5,000 units Metronidazole (Flagyl) 500 mg in 100 mls @ 100 mls/hr IV Q8H JOSHUA; Protocol Stop: 09/12/25 14:29 Last Infusion: 09/03/25 15:49 Dose: Infused Pantoprazole Sodium (Protonix) 40 mg in 10 mls @ 5 mls/min IV DAILY JOSHUA Stop: 10/03/25 08:59 Last Admin: 09/03/25 09:14 Dose: 5 mls/min Parenteral Electrolytes (Plasma-Lyte A Ph 7.4) 1,000 mls @ 100 mls/hr IV .Q10H JOSHUA Stop: 09/05/25 14:29 Last Admin: 09/03/25 09:51 Dose: 100 mls/hr Acetaminophen (Ofirmev) 1,000 mg in 100 mls @ 400 mls/hr IV Q8H PRN PRN Reason: Fever or pain Stop: 09/05/25 14:43 Last Infusion: 09/03/25 12:20 Dose: Infused Ondansetron HCl (Ondansetron Inj 2 Mg/Ml 2 Ml Vial) 4 mg IV Q6H PRN PRN Reason: Nausea And Vomiting Stop: 10/03/25 14:12 Last Admin: 09/03/25 14:31 Dose: 4 mg Vancomycin HCl (Vancomycin Hcl 250 Mg Cap) 500 mg PO Q6 JOSHUA Stop: 09/12/25 17:59 Last Admin: 09/03/25 11:22 Dose: 500 mg
[2025-09-03] MEDS: ONDANSETRON INJ 2 MG/ML 2 ML VIAL IV PRN (14:31)
[2025-09-03] MEDS: cefTRIAXone SODIUM 2,000 MG/50 ML BAG IV SCH (17:33)
[2025-09-03] MEDS: SODIUM CHLORIDE 0.9% 500 ML IV ONE (17:56)
[2025-09-03] MEDS: OPTIRAY 320 100ml IV ONE (19:44)
--- NOTE | 2025-09-03 20:17 | CT Scan Report ---
Exam(s): CT ABDOMEN + PELVIS With Contrast IV Amt: 90 ml optiray 320 EXAM: CT Abdomen and Pelvis With Intravenous Contrast CLINICAL HISTORY: Reason for exam: Follow-up prior, obstruction vs perf. TECHNIQUE: Axial computed tomography images of the abdomen and pelvis with intravenous contrast. CTDI is 22 mGy and DLP is 1257 mGy-cm. Automated exposure control was utilized for the study. A dose lowering technique was utilized adhering to the principles of ALARA. CONTRAST: Patient received 90 ml optiray 320 of IV contrast COMPARISON: 09/02/2025 FINDINGS: Lung bases: Consolidative atelectasis in the bilateral lower lobes. Pleural space: Trace bilateral pleural effusions. Heart: Trace pericardial effusion. Cardiomegaly. Coronary artery calcifications. ABDOMEN: Liver: Unremarkable. Gallbladder and bile ducts: Contracted gallbladder. No biliary dilatation. Pancreas: Unremarkable. Spleen: Unremarkable. Adrenals: Unremarkable. Kidneys and ureters: Unremarkable. No obstructing stones. No hydronephrosis. Stomach and bowel: Excess stool burden in the rectum with upstream distention of the colon up to 7 cm concerning for colonic obstruction. PELVIS: Appendix: No findings to suggest acute appendicitis. Bladder: Carias catheter within the bladder. Reproductive: Prostate is surgically absent. ABDOMEN and PELVIS: Intraperitoneal space: Small volume ascites. No free air. Bones/joints: Degenerative changes most pronounced in the lower lumbar spine. Soft tissues: Unremarkable. Vasculature: Unremarkable. Lymph nodes: Unremarkable. Tubes, lines and devices: Rectal tube in place. IMPRESSION: 1. Excess stool burden in the rectum with upstream colonic distention up to 7 cm, concerning for obstruction. 2. Small-volume ascites. Electronically signed by: Darius Peralta MD 09/03/25 20:16 PM
[2025-09-04 04:46] LABS: Hematocrit (blood only) 42.3 % (42.0-52.0); Hemoglobin 14.2 g/dL (14.0-18.0); Mean Corpuscular Hemoglobin 29.2 pg (25.0-34.0); Mean Corpuscular Volume 87.0 fL (80.0-100.0); Platelet Count 174 K/uL (130-400); RDW Standard Deviation 50.5 fL (36.4-46.3); Red Blood Count 4.86 M/uL (4.70-6.10); White Blood Count 6.12 K/ul (4.8-10.8)
[2025-09-04 04:58] LABS: Alanine Aminotransferase 15.0 U/L (7-52); Albumin Globulin Ratio 1.4 (0.9-2); Albumin Level 3.3 gm/dl (3.4-5.0); Alkaline Phosphatase 43.0 U/L (34-104); Anion Gap 8.0 (3-11); Bilirubin,Total 0.7 mg/dl (0.2-1.0); Blood Urea Nitrogen 38.0 mg/dl (6-23); Calcium 7.6 mg/dl (8.6-10.3); Carbon Dioxide 24.0 mmol/L (21-32); Chloride 109.0 mmol/L (98-107); Creatinine Clr Calc Pharmacy 58.2 ml/min; Globulin 2.4 gm/dl (2.5-4.0); Glucose 121.0 mg/dl (70-99(Fasting)); Magnesium 3.7 mg/dl (1.7-2.4); Potassium 3.9 mmol/L (3.5-5.1); Sodium 141.0 mmol/L (136-145); Total Protein 5.7 gm/dl (6.0-8.3)
[2025-09-04 05:08] LABS: INR 1.3 (0.9-1.1); Prothrombin Time 13.5 Seconds (9.0-12.0)
[2025-09-04 05:29] LABS: Immature Granulocytes # (auto) 0.01 K/uL (0.01-0.20); Immature Granulocytes % (auto) 0.2 %; Polychromasia 1+; Toxic Vacuolation 1+
[2025-09-04] MEDS: SODIUM CHLORIDE 0.9% 1,000 ML IV ONE ×2 (09:30→14:07)
--- NOTE | 2025-09-04 10:28 | Gastrointestinal Consultation ---
Date of Consultation September 04, 2025 Assessment & Plan (1) Enteropathogenic Escherichia coli infection: (2) Acute colitis: (3) Abdominal pain: Plan Patient was admitted with altered mental status, profound diarrhea, abdominal pain, and hypovolemia. CT imaging was initially concerning for nonspecific colitis, likely stercoral given large amount of stool in colon. Follow up CT was concerning for obstruction, but he has been moving his bowels. It appears that he is likely colonized with c diff given that he was gene positive and toxin negative. EPEC should be self limited but given symptoms, ID is recommending treating. Patient does feel he is improving somewhat in regards to pain. - recommend supportive care. - Further recommendations to come with Supervising GI provider on medical rounds. Please see co-signature comments. Supervising Physician Co-Signing Physician Notes I personally saw and examined the patient. I have reviewed the chart and agree with the documentation provided by the PROCESS EXCELLENCE MANAGER including discussion about the assessment, treatment and plan. Briefly, 79 year old male with a history of heart failure with preserved ejection fraction and type II diabetes mellitus on who presented to the hospital on 09/02 with altered mental status, profound diarrhea, abdominal pain, and hypovolemia. CT initially showed colitis: Moderate circumferential wall thickening of the mid to distal descending and proximal to mid sigmoid colon. Stool culture showed colonization with C. difficile as PCR positive but toxin negative. He was found to be positive for EPEC but STEC was negative. He is currently being treated with ceftriaxone and vancomycin. It certainly appears that he had infectious colitis has led to colonic distention. EPEC rarely if ever causes toxic megacolon, C. difficile does but the patient appears to be only colonized. This does not appear to be toxic megacolon. His mental status is improved but his distention is pretty significant. It is unclear to me whether the patient has colonic pseudoobstruction from recent infectious colitis versus partial obstruction from just a large stool ball that I see on CT. His Dignashield is not putting out a lot of stool. I would continue to turn him replete electrolytes continue antibiotics if he does not have any further bowel movement consider an enema. If he does not improve, we will have to consider colonic decompression but I hesitate in the setting of infection. History of Present Illness Reason for Consultation: C diff, EPEC, possible colonic obstruction on CT. Requesting Physician: Anup Aranda MD Attending Physician: Anup Aranda MD History of Present Illness Patient is a 79 year old male with a history of heart failure with preserved ejection fraction and type II diabetes mellitus on who presented to the hospital on 09/02 with altered mental status, profound diarrhea, abdominal pain, and hypovolemia. Patient tells me that abdominal pain is present diffusely, but does seem to be getting better since admission. he is groggy but oriented, though slow to answer. I discussed with Nursing as patient was groggy and he has been moving his bowels and output is becoming more normal, though initially he had been moving large amounts of stool. He has rectal tube in place. the rest of the GI ros are unremarkable. 09/04/25 WBC 6.12, Hgb 14.2, Hct 42.3, Plts 174, INR 1.3, Na 141, K 3.9, BUN 38, Cr 1.08, T bili 0.7, D bili 0.2, AST 22, ALT 15, Alk 43, CRP 37.42. 09/02/25 stool studies are c diff gene positive, toxin negative. EPEC positive. 09/03/25 CT A/P - Excess stool burden in the rectum with upstream colonic distention up to 7 cm, concerning for obstruction. Small-volume ascites. 09/02/25 CT A/P - Moderate circumferential wall thickening of the mid to distal descending and proximal to mid sigmoid colon. Associated inflammation. The findings represent a nonspecific colitis, possibly stercoral. An infectious or ischemic colitis is also within the differential. No pneumatosis, free air or portal venous gas. Small amount of ascites. Large amount of stool within the colon and rectum. No bowel obstruction. Moderate gallbladder wall thickening. However, acute cholecystitis considered unlikely given lack of gallbladder distention. Allergies Allergy/AdvReac Type Severity Reaction Status Date / Time Penicillins Allergy Severe SWELLING, Verified 08/12/25 14:57 TROUBLE BREATHING fluvastatin [From Lescol] Allergy Unknown Unknown Verified 08/12/25 14:57 lisinopril Allergy Unknown Unknown Verified 08/12/25 14:57 lovastatin Allergy Unknown PT DOESN'T Verified 08/12/25 14:57 REMEMBER REACTION-NAUSEA? simvastatin Allergy Unknown PT DOESN'T Verified 08/12/25 14:57 REMEMBER REACTION-NAUSEA? diazepam AdvReac Mild lethargy Verified 08/12/25 14:57 losartan AdvReac Mild Dizziness Verified 08/12/25 14:57 Isuztqp-[id number] Reductase AdvReac Unknown NAUSEA Verified 08/12/25 14:57 Inhibitor [Mubaqlf-Ylg-Mjk Reductase Inhibitor] Home Medications Medication Instructions Recorded Confirmed Type loratadine 10 mg tablet (Claritin) 10 mg PO QAM allergies 03/01/21 09/02/25 History multivitamin 1 tab PO QAM 03/01/21 09/02/25 History omeprazole 20 mg tablet,delayed 40 mg PO QAM 03/01/21 09/02/25 History release naltrexone 50 mg tablet 50 mg PO HS 11/16/21 09/02/25 History thiamine HCl (vitamin B1) 100 mg 300 mg PO BID 04/28/23 09/02/25 History tablet (Vitamin B-1) lidocaine 5 % topical patch 1 patch topical DAILY PRN Pain 05/02/23 09/02/25 History clotrimazole 1 % topical cream 1 applic topical BID PRN Rash 12/12/23 09/02/25 History clindamycin phosphate 1 % topical 1 applic topical BID PRN Breakouts 09/05/24 09/02/25 History solution pregabalin 225 mg capsule 225 mg PO BID 09/05/24 09/02/25 History terazosin 10 mg capsule 10 mg PO HS 09/05/24 09/02/25 History topiramate 25 mg tablet 25 mg PO BID Migraine Prevention 09/05/24 09/02/25 History vitamin E 268 mg (400 unit) capsule 268 mg PO QAM 09/05/24 09/02/25 History baclofen 5 mg tablet 5 mg PO DAILY PRN Muscle Spasm 11/23/24 09/02/25 History ezetimibe 10 mg tablet (Zetia) 10 mg PO QAM 12/28/24 09/02/25 History montelukast 10 mg tablet 10 mg PO HS #90 tabs 05/30/25 09/02/25 Rx trospium 60 mg capsule,extended 60 mg PO DAILY #30 caps 06/04/25 09/02/25 Rx release 24 hr bumetanide 1 mg tablet 2 mg PO QAM 08/12/25 09/02/25 History carvedilol 12.5 mg tablet (Coreg) 12.5 mg PO BID 08/12/25 09/02/25 History cholecalciferol (vitamin D3) 10 10 mcg PO DAILY 08/12/25 09/02/25 History mcg (400 unit) capsule omega 0-jzs-aoa-fish oil 900 1 cap PO BID 08/12/25 09/02/25 History mg-1,400 mg capsule,delayed release potassium chloride 20 mEq 10 meq PO DAILY 08/12/25 09/02/25 History tablet,extended release(part/cryst) salicylic acid 3 % shampoo 1 ea topical DAILY PRN Other 08/12/25 09/02/25 History selenium sulfide 2.5 % lotion 1 applic topical Q OTHER DAY PRN 08/12/25 09/02/25 History Other sennosides 8.6 mg tablet (Senokot) 17.2 mg PO HS PRN constipation 08/12/25 09/02/25 History tiotropium 2.5 mcg-olodaterol 2.5 2 puff inhalation QAM 08/12/25 09/02/25 History mcg/actuation mist for inhalation tirzepatide 7.5 mg/0.5 mL 7.5 mg (0.5 mL) subcut Q7D #6 mL 08/21/25 09/02/25 Rx subcutaneous pen injector (Sathish) Patient History Medical History Asthma Hypertension History of injury of tendon bicep tear w/ repair History of alcohol withdrawal delirium (2020) Hypotension 02/07/25- states had blood pressure medication adjustment early 12/2023 by pcp; bp meds currently back up to previous dosages. History of pneumonia (2020) Tremor Pulmonary nodule monitoring Peripheral neuropathy Migraine Diabetes diet controlled Arthritis History of prostate cancer (2019) History of COVID-19 2021- no hosp; resolved H/O alcohol dependence has approx 1 drink per month now > "quit in February 2022" Osteoarthritis SOB (shortness of breath) on exertion 02/08/24- recent increase in SOB, nausea and weakness with exertion (home bp reading during episode 112/66) Asthma uses rescue inhaler 1-2 times per week Hyperlipidemia Surgical History History of cataract surgery right Status post lung surgery H/O elbow surgery H/O prostatectomy History of bronchoscopy History of colonoscopy History of surgery on arm LEFT ELBOW-TENDON SURG Fusion of spine CERVICAL > "slightly" limited ROM side to side History of lobectomy of lung RIGHT MIDDLE LOBE-BENIGN Family History Father Diabetes Cardiac disorder Unknown Hypertension Mother Cardiac disorder Social History Smoking Status: Former smoker Tobacco Type: Cigarettes Age Started Using Tobacco: 20; Age Quit Using Tobacco: 61; Second Hand Exposure: No; Do You Dip or Chew Tobacco: No; Hx Alcohol Use: Yes Alcohol type: beer and wine Hx Substance Use: No Preferred Language: Maldivian Communication Ability: Effective Clerical Adjuster Required: No Beliefs That Will Affect Care: None Current Living Situation: Spouse Current Living Situation Comment: home with Feels Safe at Home: Yes Safety Concerns: Feels Safe At This Time Assistive Devices: Cane, CPAP and Walker Assistive Devices Comment: only has upper denture on pt Review of Systems Review of Systems: All systems reviewed & are unremarkable except as noted in HPI & below Physical Exam Constitutional: WD/WN, vitals as above Respiratory: normal respiratory effort, lungs clear to auscultation Cardiovascular: Rate/Rhythm: regular rate and regular rhythm Gastrointestinal (Abdomen): mild diffuse tenderness, no guarding, soft, normal bowel sounds. Psychiatric: Orientation: oriented x 3 lethargic Results & Data Vital Signs (Past 12 Hours) Vital Signs Temp Pulse Pulse Resp BP Pulse Ox O2 Del Method 09/04/25 09:03 Oxymask 09/04/25 09:00 99.3 F 91 H 20 92 Oxymask 09/04/25 08:00 99.3 F 92 H 20 92 09/04/25 08:00 126/74 09/04/25 07:44 93 H 09/04/25 07:32 92 H 16 90 Nasal Cannula 09/04/25 07:00 99.5 F 92 H 18 93 09/04/25 06:00 99.5 F 128 H 24 92 09/04/25 05:00 99.3 F 121 H 19 92 09/04/25 04:52 152/97 H 09/04/25 04:52 152/97 H 09/04/25 04:52 152/97 H 09/04/25 04:52 152/97 H 09/04/25 04:52 152/97 H 09/04/25 04:51 99.3 F 129 H 19 93 09/04/25 04:00 99.3 F 123 H 18 98 09/04/25 04:00 126/91 09/04/25 04:00 126/91 09/04/25 04:00 126/91 09/04/25 04:00 126/91 09/04/25 03:00 99.3 F 130 H 19 91 09/04/25 00:12 120 H 20 93 Nasal Cannula 09/04/25 00:00 90 09/04/25 00:00 99.3 F 121 H 18 92 09/04/25 00:00 137/80 09/04/25 00:00 137/80 09/04/25 00:00 137/80 09/04/25 00:00 137/80 09/04/25 00:00 137/80 09/03/25 23:00 99.3 F 125 H 16 94 O2 Flow Rate 09/04/25 09:03 3 09/04/25 09:00 3 09/04/25 08:00 09/04/25 08:00 09/04/25 07:44 09/04/25 07:32 4 09/04/25 07:00 09/04/25 06:00 09/04/25 05:00 09/04/25 04:52 09/04/25 04:52 09/04/25 04:52 09/04/25 04:52 09/04/25 04:52 09/04/25 04:51 09/04/25 04:00 09/04/25 04:00 09/04/25 04:00 09/04/25 04:00 09/04/25 04:00 09/04/25 03:00 09/04/25 00:12 4 09/04/25 00:00 09/04/25 00:00 09/04/25 00:00 09/04/25 00:00 09/04/25 00:00 09/04/25 00:00 09/04/25 00:00 09/03/25 23:00 Coding Level of Care Code 26587 INT INP/OBS CARE 2/55MIN Diagnoses Enteropathogenic Escherichia coli infection A04.0 Acute colitis K52.9 Abdominal pain R10.9
[2025-09-04] MEDS: MoRPHine SULFATE 4 MG/ML 1 ML CARP\\VIAL IV PRN (10:50)
--- NOTE | 2025-09-04 11:46 | Cardiology Progress Note ---
Date of Service September 04, 2025 Assessment & Plan (1) Hypotension: (2) Cardiomyopathy: (3) (HFpEF) heart failure with preserved ejection fraction: (4) SVT (supraventricular tachycardia): Plan 1. Hypotension: There appears to be no evidence that this is cardiac in nature. An echocardiogram however has been ordered. His SVT may be contributory, although based on his recent blood pressure measurements (which are hard to correlate) it has not made a big difference with termination of the arrhythmia. His blood pressure has improved and was not adversely affected by adding diltiazem yesterday 2. Cardiomyopathy: He has a history of hypertrophic cardiomyopathy as well as right ventricular dysfunction. Both of these findings may make him more sensitive to volume and rhythm disturbances than with normal physiology. We will be assessing these with his echocardiogram. 3. HFpEF: He has a history of heart failure with a preserved ejection fraction, he does not appear to be in heart failure now and was likely volume depleted. It is likely that he is sensitive to fluid shifts and I would be cautious with fluid overload which might induce heart failure. He may also be sensitive to abnormal tachycardia such as his SVT. 4. SVT: I cannot tell the mechanism of his SVT, it does not appear to be classic (typical) AV curtis reentry due to a long RP interval, so it could be a long RP (atypical) AV curtis reentry, a bypass tract tachycardia or some type of adenosine sensitive atrial tachycardia. Since it clearly terminated with adenosine I did start diltiazem to see if we can keep him from having recurrence of this arrhythmia, this was somewhat successful and that it decreased the duration of his events but he still spends substantial amount of time in SVT. It may in part be catecholamine dependent, I am sure he is in a high catecholamine state, so I am going to add low-dose metoprolol to tartrate to his regimen (25 mg twice a day). Whether he should have an electrophysiologic study and ablation at some point is not clear, certainly not now. Admission and Anticipated Discharge Date Admission Date: September 02, 2025 Subjective He seems to be doing a little better today but he is still having significant distress. No cardiovascular symptoms. No awareness of his rhythm. Physical Exam Physical Exam: Constitutional: Alert, cooperative and in moderate distress. HEENT: Unremarkable, on oxygen Neck: No jugular venous distention, carotid pulses are rapid but normal and equal bilaterally without bruits. Pulmonary: Clear to auscultation bilaterally on limited exam supine. Cardiac: Regular rapid rhythm with no murmur, gallop or rub. Abdomen: Very tender, decreased bowel sounds. Extremities: No edema. Neurologic: No focal findings, moves all extremities Skin: No rash, ecchymoses or petechiae. Results & Data Vital Signs (Past 12 Hours) Vital Signs Temp Pulse Pulse Resp BP Pulse Ox O2 Del Method 09/04/25 09:03 Oxymask 09/04/25 09:00 37.4 C 91 H 20 92 Oxymask 09/04/25 08:00 37.4 C 92 H 20 92 09/04/25 08:00 126/74 09/04/25 07:44 93 H 09/04/25 07:32 92 H 16 90 Nasal Cannula 09/04/25 07:00 37.5 C 92 H 18 93 09/04/25 06:00 37.5 C 128 H 24 92 09/04/25 05:00 37.4 C 121 H 19 92 09/04/25 04:52 152/97 H 09/04/25 04:52 152/97 H 09/04/25 04:52 152/97 H 09/04/25 04:52 152/97 H 09/04/25 04:52 152/97 H 09/04/25 04:51 37.4 C 129 H 19 93 09/04/25 04:00 37.4 C 123 H 18 98 09/04/25 04:00 126/91 09/04/25 04:00 126/91 09/04/25 04:00 126/91 09/04/25 04:00 126/91 09/04/25 03:00 37.4 C 130 H 19 91 09/04/25 00:12 120 H 20 93 Nasal Cannula 09/04/25 00:00 90 09/04/25 00:00 37.4 C 121 H 18 92 09/04/25 00:00 137/80 09/04/25 00:00 137/80 09/04/25 00:00 137/80 09/04/25 00:00 137/80 09/04/25 00:00 137/80 O2 Flow Rate 09/04/25 09:03 3 09/04/25 09:00 3 09/04/25 08:00 09/04/25 08:00 09/04/25 07:44 09/04/25 07:32 4 09/04/25 07:00 09/04/25 06:00 09/04/25 05:00 09/04/25 04:52 09/04/25 04:52 09/04/25 04:52 09/04/25 04:52 09/04/25 04:52 09/04/25 04:51 09/04/25 04:00 09/04/25 04:00 09/04/25 04:00 09/04/25 04:00 09/04/25 04:00 09/04/25 03:00 09/04/25 00:12 4 09/04/25 00:00 09/04/25 00:00 09/04/25 00:00 09/04/25 00:00 09/04/25 00:00 09/04/25 00:00 09/04/25 00:00 Laboratory Results Cardiac Enzymes 09/04/25 Range/Units 04:14 AST 22 (13-39) U/L Coagulation 09/04/25 Range/Units 04:14 PT 13.5 H (9.0-12.0) Seconds CBC 09/04/25 Range/Units 04:14 WBC 6.12 (4.8-10.8) K/ul RBC 4.86 (4.70-6.10) M/uL Hgb 14.2 (14.0-18.0) g/dL Hct 42.3 (42.0-52.0) % Plt Count 174 (130-400) K/uL Neut # (Auto) 4.67 (1.40-6.50) K/uL Lymph # (Auto) 0.48 L (1.20-3.40) K/uL [place] # (Auto) 0.86 H (0.11-0.59) K/uL Eos # (Auto) 0.03 (0.00-0.50) K/uL Baso # (Auto) 0.07 (0.00-0.20) K/uL Comprehensive Metabolic Panel 09/04/25 Range/Units 04:14 Sodium 141 (136-145) mmol/L Potassium 3.9 (3.5-5.1) mmol/L Chloride 109 H (98-107) mmol/L Carbon Dioxide 24 (21-32) mmol/L BUN 38 H (6-23) mg/dl Creatinine 1.08 D (0.6-1.4) mg/dl Glucose 121 H (70-99(Fasting)) mg/dl Calcium 7.6 L (8.6-10.3) mg/dl Direct Bilirubin 0.2 (0-0.2) mg/dl AST 22 (13-39) U/L ALT 15 (7-52) U/L Alkaline Phosphatase 43 (34-104) U/L Total Protein 5.7 L (6.0-8.3) gm/dl Albumin 3.3 L (3.4-5.0) gm/dl Intake and Output 09/03/25 09/04/25 09/04/25 22:59 06:59 14:59 Intake Total 1825 / 5300 1000 / 5300 100 / 100 Output Total 1105 / 2705 875 / 2705 Balance 720 / 2595 125 / 2595 100 / 100 Intake: IV 1825 / 5300 1000 / 5300 100 / 100 Acetaminophen 1,000 mg In 100 100 / 200 ml @ 400 mls/hr IV Q8H PRN Rx#: [id number] Norepinephrine/D5w 4 mg In 250 0 / 0 ml @ 0 MCG/KG/MIN IV .Q0M [facility] Rx#:[id number] Plasma-Lyte A 1,000 ml @ 100 975 / 2975 1000 / 2975 mls/hr IV .Q10H [facility] Rx#: [id number] Sodium Chloride 0.9% 500 ml @ 500 / 500 999 mls/hr IV .Q31M [facility] Rx#: [id number] cefTRIAXone SODIUM 2,000 mg In 50 / 50 50 ml @ 100 mls/hr IV Q24H [facility] Rx#:[id number] metroNIDAZOLE 500 mg In 100 ml 200 / 300 100 / 100 @ 100 mls/hr IV Q8H [facility] Rx#: [id number] Output: Urine 600 / 750 Stool 200 / 600 400 / 600 Urine Amount (Catheter) 305 / 1355 475 / 1355 Temp Sensing Carias 305 / 1355 475 / 1355 Other: Weight 86.8 kg Weight Measurement Method Built in [facility] Diagnostic Findings Telemetry: Sinus rhythm alternating with SVT, the time spent in SVT has diminished, but is still substantial (visual estimate about 50%). The heart rate has really not changed for SVT or sinus rhythm. PG Care Time/CCT Total # of Minutes Spent Total Time Spent with Patient: Total time spent is greater than 50% in coordination of care (as documented) at patient's floor/unit and/or counseling patient: Coding Level of Care Code 03643 SUB INP/OBS CARE 3/50MIN Diagnoses Hypotension I95.9 Cardiomyopathy I42.9 (HFpEF) heart failure with preserved ejection fraction I50.30 SVT (supraventricular tachycardia) I47.10
--- NOTE | 2025-09-04 12:12 | Infectious Disease Progress Nt ---
Date of Service September 04, 2025 Assessment & Plan (1) Enteropathogenic Escherichia coli infection: (2) C. difficile colitis: Plan Problems: #EPEC #? C diff #Abdominal pain #Shock Micro: 09/02 UCx: NG 09/02 BCx x2: NGTD Abx: PO vanc 09/02 - present Metronidazole 09/02 - present Ceftriaxone 09/03 - present Cefepime 09/02 - 09/03 IV vanc 09/02 - 09/03 79 yo M with history of ischemic cardiomyopathy, HFpEF, PAD, COPD with emphysema, thoracic aortic aneurysm, LINDSAY, degenerative back disease, history of recurrent multifocal pneumonia, HTN with labile BPs, history of alcohol dependence, migraine who presented on 09/02 with abrupt onset confusion, weakness, found to have colitis, sepsis. Per his , he was in his usual state of health the day prior to presentation. Overnight around 3am, pt went to the bathroom, had cramps and dry heaving. A few hours later, pt attempted to get up to use the bathroom again but was unable to do so independently and needed assistance from his . She reports he had a small amount of loose stool at that time, no blood noted in the stool. He was so weak that he was unable to get back to bed independently. EMS was called, and noted pt to be febrile to 102, hypotensive, hypoxic. Was placed on 3 L NC. On presentation, pt was afebrile, HR 120, BP 70/54. Did later become febrile to 38. Labs showed WBC 9.58, Cr 1.45, lactate 1.7 --> 2.8, procalcitonin 18.4. UA with 0-5 WBCs. RVP negative. CTAP with IV contrast showed moderate circumferential wall thickening of mid to distal descending and proximal to mid sigmoid colon, associated inflammation, findings representing a nonspecific colitis, possibly stercoral. Infectious or ischemic colitis also within differential. Large amount of stool within the colon and rectum. CTA chest with no PE, dependent airspace opacities favor atelectasis on top of chronic scarring, no airspace consolidation typical for pneumonia. Pt given IVF, started on vanc and cefepime. Was hypotensive despite fluid resuscitation, so admitted to ICU. Briefly on Levophed in ER. Stool PCR panel positive for EPEC and C diff gene, negative for C diff toxin. Rectal tube placed 09/02. Pt continued with elevated temps, last fever 09/03 AM. On evaluation 09/03, pt reported continued severe pain from his chest down to his pelvis, slightly improved from admission. He feels this pain is in his muscle. Thinks his diarrhea is improving, and he is not having abdominal cramping as much. reports he had C diff years ago. His denies diarrhea, and states she eats mostly the same things as her , aside from some fruits that her eats. KUB repeated 09/03, showing increase in gaseous distension of small and large bowel, likely related to colitis on CT, however distal colonic obstruction difficult to completely exclude. Large amount of poorly formed stool throughout colon and rectum. CTAP repeated 09/03 PM, which showed excess stool burden in the rectum with upstream colonic distension up to 7 cm concerning for obstruction. GI consulted, noted that pt has been moving his bowels. Discussion: EPEC is typically managed with supportive care, although antibiotics may be used in severe, bloody, or persistent diarrhea--treating at this time given pt's persistent fevers, diarrhea. C diff PCR positive, toxin negative could indicate C diff colonization rather than infection, but reasonable to treat given diarrhe a. Recommendations: - Will continue ceftriaxone 2 g IV q24h for EPEC to complete 3 day course through 09/05/25 - Continue PO vanc 500 mg QID and metronidazole 500 mg IV q8h for possible fulminant C diff. Hope to de-escalate to PO vanc 125 mg QID soon - Follow-up blood cultures Will continue to follow Admission and Anticipated Discharge Date Admission Date: September 02, 2025 Subjective This patient recommendation is based on a telemedicine consult request which was completed asynchronously through chart review and information provided by the primary physician. The patient was not seen or examined today. The evaluation is consultative in nature and all patient care and treatment decisions can either be accepted or rejected by the patient's primary hospital-based treating physician using their own independent medical judgment for their patient. Time Spent Reviewing Chart: 11 - 20 minutes Afebrile since yesterday morning CTAP repeated yesterday evening, showed excess stool burden in rectum with upstream colonic distension up to 7 cm concerning for obstruction Results & Data Vital Signs (Past 12 Hours) Vital Signs Temp Pulse Pulse Resp BP Pulse Ox O2 Del Method 09/04/25 09:03 Oxymask 09/04/25 09:00 37.4 C 91 H 20 92 Oxymask 09/04/25 08:00 37.4 C 92 H 20 92 09/04/25 08:00 126/74 09/04/25 07:44 93 H 09/04/25 07:32 92 H 16 90 Nasal Cannula 09/04/25 07:00 37.5 C 92 H 18 93 09/04/25 06:00 37.5 C 128 H 24 92 09/04/25 05:00 37.4 C 121 H 19 92 09/04/25 04:52 152/97 H 09/04/25 04:52 152/97 H 09/04/25 04:52 152/97 H 09/04/25 04:52 152/97 H 09/04/25 04:52 152/97 H 09/04/25 04:51 37.4 C 129 H 19 93 09/04/25 04:00 37.4 C 123 H 18 98 09/04/25 04:00 126/91 09/04/25 04:00 126/91 09/04/25 04:00 126/91 09/04/25 04:00 126/91 09/04/25 03:00 37.4 C 130 H 19 91 09/04/25 00:12 120 H 20 93 Nasal Cannula O2 Flow Rate 09/04/25 09:03 3 09/04/25 09:00 3 09/04/25 08:00 09/04/25 08:00 09/04/25 07:44 09/04/25 07:32 4 09/04/25 07:00 09/04/25 06:00 09/04/25 05:00 09/04/25 04:52 09/04/25 04:52 09/04/25 04:52 09/04/25 04:52 09/04/25 04:52 09/04/25 04:51 09/04/25 04:00 09/04/25 04:00 09/04/25 04:00 09/04/25 04:00 09/04/25 04:00 09/04/25 03:00 09/04/25 00:12 4
[2025-09-04] MEDS: METOPROLOL TARTRATE 25 MG TAB PO SCH (12:54)
--- NOTE | 2025-09-04 13:24 | Hospitalist Progress Note ---
Date of Service September 04, 2025 Assessment & Plan (1) AMS (altered mental status): (2) Septic shock: (3) Acute hypoxemic respiratory failure: (4) Peripheral arterial disease: (5) LINDSAY (obstructive sleep apnea): (6) Cardiomyopathy: (7) COPD with emphysema: (8) Thoracic aortic aneurysm (TAA): (9) Alcohol use disorder: (10) Type 2 diabetes mellitus: (11) Sepsis: (12) KIM (acute kidney injury): (13) History of lobectomy of lung: (14) Fusion of spine: Plan #Septic shock #SIRS/sepsis #Altered mental status #Acute Colitis #Possible colonic obstruciton on CT 09/03 - PCR positive for EPEC, cdiff gene positive, toxin negative - repeat KUB no obvious free air - DC cefepime, continue oral vanco - consult ID , rocephin added to cover EPEC - Dry on exam, 1l NS bolus and check [place], may give another bolus t his afternoo #Sinus Tach -See cardiology notes, Cardizem PRN #Hypermagnesemia - I do not see that he is currently on a supplement, presentation overall would be very consistent with hypomagnesemia syndrome, altered mental status, hypotension, refractory to volume resuscitation. - Still elevated, no exogenous sources, continue to monitor #Hypoxemic respiratory failure #COPD/emphysema #Status post right middle lobectomy - Postsurgical findings stable on CT, multifocal pneumonia possible, antibiotics as above, respiratory support with nebulizers, oxygen, RT consultation Advanced airway support-okay with family, including CPAP/BiPAP or intubation if needed -continue respiratory support, stable #Diarrhea #Abdominal pain prior to presentation - No clear source on CT, cefepime as above, serial examinations, Zosyn and cefepime for broad-spectrum coverage - Stool culture and C. difficile testing sent - See colitis above, impriving, balance I/O #KIM - Likely prerenal in the setting of acute illness as above, status post 30 mg/kg, continue to monitor, avoid nephrotoxic substances - slightly elevated, almost back to baseline, fluid as above, daily monitoring #Type 2 diabetes - Hold tirzepatide, sliding scale per ICU protocol on admission - within goal range #Alcohol use disorder history of withdrawl - naltrexone is on his home medication list, will review further with his - In regards to the role alcohol or alcohol withdrawal may be playing in current presentation, could certainly be exacerbating mental status changes - add liver functions and lipase - High risk for withdrawal, AWSS screen orders placed - reviewed with his , minimal to no use, reports one glass of wine last week, detention sobriety #Altered mental status - Likely mixed etiology, toxic/infectious as above, metabolic in regards to possible alcohol withdrawal/hypermagnesemia. Continue to monitor closely with AWSS -imprving #Hypertension -Hold antihypertensives in the setting of shock as above #recurrent migraine - Hold topiramate #Thoracic aortic aneurysm -No evidence of acute pathology on CT, continue to monitor #FEN NPO initally CODE STATUS - Full code in discussion with his . She states he would not want anything prolonged if the prognosis was grim Admission and Anticipated Discharge Date Admission Date: September 02, 2025 Subjective Doing better this AM, abd pain is better but not resolved, stooling has slowed significantly per nursing. He is closer to his baseline mental status, very very thirsty this AM. No other concerning events this AM, reviewed with patient the GI will see him today. also reviewed CT findings. Physical Exam Physical Exam: Constitutional: Alert, cooperative and in moderate distress. HEENT: Unremarkable, on oxygen Neck: No jugular venous distention, carotid pulses are rapid but normal and equal bilaterally without bruits. Pulmonary: Clear to auscultation bilaterally on limited exam supine. Cardiac: Regular rapid rhythm with no murmur, gallop or rub. Abdomen: Very tender, decreased bowel sounds. Extremities: No edema. Neurologic: No focal findings, moves all extremities Skin: No rash, ecchymoses or petechiae. Results & Data Results & Data Vital Signs (Past 12 Hours) Vital Signs Temp Pulse Pulse Resp BP Pulse Ox O2 Del Method 09/04/25 09:03 Oxymask 09/04/25 09:00 37.4 C 91 H 20 92 Oxymask 09/04/25 08:00 37.4 C 92 H 20 92 09/04/25 08:00 126/74 09/04/25 07:44 93 H 09/04/25 07:32 92 H 16 90 Nasal Cannula 09/04/25 07:00 37.5 C 92 H 18 93 09/04/25 06:00 37.5 C 128 H 24 92 09/04/25 05:00 37.4 C 121 H 19 92 09/04/25 04:52 152/97 H 09/04/25 04:52 152/97 H 09/04/25 04:52 152/97 H 09/04/25 04:52 152/97 H 09/04/25 04:52 152/97 H 09/04/25 04:51 37.4 C 129 H 19 93 09/04/25 04:00 37.4 C 123 H 18 98 09/04/25 04:00 126/91 09/04/25 04:00 126/91 09/04/25 04:00 126/91 09/04/25 04:00 126/91 09/04/25 03:00 37.4 C 130 H 19 91 O2 Flow Rate 09/04/25 09:03 3 09/04/25 09:00 3 09/04/25 08:00 09/04/25 08:00 09/04/25 07:44 09/04/25 07:32 4 09/04/25 07:00 09/04/25 06:00 09/04/25 05:00 09/04/25 04:52 09/04/25 04:52 09/04/25 04:52 09/04/25 04:52 09/04/25 04:52 09/04/25 04:51 09/04/25 04:00 09/04/25 04:00 09/04/25 04:00 09/04/25 04:00 09/04/25 04:00 09/04/25 03:00 Laboratory Results 09/02/25 12:45 Urine Culture - Final Urine,Straight Cath No growth - less than 1,000 colonies/mL. 09/02/25 10:19 Aerobic Blood Culture - Pending Blood Anaerobic Blood Culture - Final 09/02/25 10:19 Aerobic Blood Culture - Pending Blood Anaerobic Blood Culture - Final 09/04/25 09/04/25 09/03/25 04:14 00:02 17:46 WBC 6.12 RBC 4.86 Hgb 14.2 Hct 42.3 MCV 87.0 MCH 29.2 MCHC 33.6 RDW Std Deviation 50.5 H RDW Coeff of Roni 15.9 H Plt Count 174 MPV 11.1 Immature Gran % (Auto) 0.2 Neut % (Auto) 76.3 Lymph % (Auto) 7.8 [place] % (Auto) 14.1 Eos % (Auto) 0.5 Baso % (Auto) 1.1 Neut # (Auto) 4.67 Lymph # (Auto) 0.48 L [place] # (Auto) 0.86 H Eos # (Auto) 0.03 Baso # (Auto) 0.07 Immature Gran # (Auto) 0.01 Toxic Vacuolation 1+ Polychromasia 1+ Echinocytes 3+ PT 13.5 H INR 1.3 H Sodium 141 Potassium 3.9 Chloride 109 H Carbon Dioxide 24 Anion Gap 8 BUN 38 H Creatinine 1.08 D Est Cr Clr Drug Dosing 58.2 eGFR 70.24 BUN/Creatinine Ratio 35.2 H Glucose 121 H POC Glucose 118 H 151 H Calcium 7.6 L Magnesium 3.7 H Total Bilirubin 0.7 Direct Bilirubin 0.2 AST 22 ALT 15 Alkaline Phosphatase 43 C-Reactive Protein 37.42 H Total Protein 5.7 L Albumin 3.3 L Globulin 2.4 L Albumin/Globulin Ratio 1.4 Procalcitonin 24.00 H PG Care Time/CCT Total # of Minutes Spent Total Time Spent with Patient: Total time spent is greater than 50% in coordination of care (as documented) at patient's floor/unit and/or counseling patient: Coding Level of Care Code 25386 SUB INP/OBS CARE 2/35MIN Diagnoses AMS (altered mental status) R41.82 Septic shock A41.9; R65.21 Acute hypoxemic respiratory failure J96.01 Peripheral arterial disease I73.9 LINDSAY (obstructive sleep apnea) G47.33 Cardiomyopathy I42.9 COPD with emphysema J43.9 Thoracic aortic aneurysm (TAA) I71.20 Alcohol use disorder F10.90 Type 2 diabetes mellitus without complication, without long-term current use of insulin E11.9 Diabetes mellitus termite treater helper insulin use: without detention use Diabetes mellitus complication status: without complication Sepsis A41.9 KIM (acute kidney injury) N17.9 History of lobectomy of lung Z90.2 Fusion of spine M43.20 (10) Type 2 diabetes mellitus Diabetes mellitus detention insulin use: without termite treater helper use Diabetes mellitus complication status: without complication Qualified Code(s): E11.9 - Type 2 diabetes mellitus without complications
[2025-09-05 04:26] LABS: Hematocrit (blood only) 37.6 % (42.0-52.0); Hemoglobin 13.1 g/dL (14.0-18.0); Mean Corpuscular Hemoglobin 30.5 pg (25.0-34.0); Mean Corpuscular Volume 87.4 fL (80.0-100.0); Platelet Count 196 K/uL (130-400); RDW Standard Deviation 50.6 fL (36.4-46.3); Red Blood Count 4.30 M/uL (4.70-6.10); White Blood Count 7.34 K/ul (4.8-10.8)
[2025-09-05 04:42] LABS: Alanine Aminotransferase 14.0 U/L (7-52); Albumin Level 3.1 gm/dl (3.4-5.0); Alkaline Phosphatase 44.0 U/L (34-104); Bilirubin,Total 0.7 mg/dl (0.2-1.0); Creatinine Clr Calc Pharmacy 100.4 ml/min; Magnesium 3.0 mg/dl (1.7-2.4); Total Protein 5.7 gm/dl (6.0-8.3)
[2025-09-05 04:53] LABS: INR 1.1 (0.9-1.1); Prothrombin Time 11.5 Seconds (9.0-12.0)
[2025-09-05 04:57] LABS: Dohle Bodies 1+; Immature Granulocytes # (auto) 0.04 K/uL (0.01-0.20); Immature Granulocytes % (auto) 0.5 %
[2025-09-05 05:14] LABS: Anion Gap 9.0 (3-11); Blood Urea Nitrogen 26.0 mg/dl (6-23); Calcium 7.6 mg/dl (8.6-10.3); Carbon Dioxide 24.0 mmol/L (21-32); Chloride 111.0 mmol/L (98-107); Glucose 105.0 mg/dl (70-99(Fasting)); Potassium 3.7 mmol/L (3.5-5.1); Sodium 144.0 mmol/L (136-145)
[2025-09-05] MEDS: DICLOFENAC SOD 1% GEL 100 GM TUBE EXT SCH (05:14)
[2025-09-05] MEDS: NAPROXEN 375 MG TAB PO STA (05:16)
--- NOTE | 2025-09-05 09:21 | Gastroenterology Progress Note ---
Date of Service September 05, 2025 Assessment & Plan (1) Abdominal pain: Plan Discussed case with Dr. Munoz. Would recommend starting some tap water enemas to see if this helps get his bowels moving more and can reassess how he does with this later today. Admission and Anticipated Discharge Date Admission Date: September 02, 2025 Supervising Physician Co-Signing Physician Notes I personally saw and examined the patient. I have reviewed the chart and agree with the documentation provided by the DIRECTOR OF COMMUNITY EDUCATION including discussion about the assessment, treatment and plan. Briefly, his bowel movements have stopped and his stomach is distended. Can we get a KUB today and start tapwater or soapsuds or if the creatinine is okay fleets enemas. If he is truly not going down we may have to consider: Flex sig decompression. The concern is his mental status and his tachycardia. High suspicion for Gustavo's after an infectious enteritis Subjective Patient tells me his abdominal pain is less intense, but still there. Patient had pulled his dignashield yesterday. Nursing tells me he had passed some copious amounts of stool yesterday, but since is just passing smears. no other complaints per patient. Review of Systems Review of Systems: All systems reviewed & are unremarkable except as noted in HPI & below Physical Exam Constitutional: WD/WN, vitals as above Respiratory: normal respiratory effort, lungs clear to auscultation Cardiovascular: Rate/Rhythm: + tachycardic Gastrointestinal (Abdomen): mild diffuse tenderness, distended. no guarding. soft. Psychiatric: Orientation: alert and oriented x 3 Results & Data Results & Data Vital Signs (Past 12 Hours) Vital Signs Temp Pulse Pulse Resp BP Pulse Ox O2 Del Method 09/05/25 07:10 117 H 20 93 Oxymask 09/05/25 06:45 157/90 H 09/05/25 06:45 157/90 H 09/05/25 06:45 99.1 F 85 24 93 09/05/25 06:30 99.1 F 126 H 23 94 09/05/25 06:30 160/109 H 09/05/25 06:30 160/109 H 09/05/25 06:30 160/109 H 09/05/25 06:30 160/109 H 09/05/25 06:30 160/109 H 09/05/25 06:00 160/101 H 09/05/25 06:00 160/101 H 09/05/25 06:00 160/101 H 09/05/25 06:00 160/101 H 09/05/25 06:00 160/101 H 09/05/25 06:00 99.1 F 123 H 17 92 09/05/25 05:45 141/98 H 09/05/25 05:45 141/98 H 09/05/25 05:45 141/98 H 09/05/25 05:45 141/98 H 09/05/25 05:45 141/98 H 09/05/25 05:45 141/98 H 09/05/25 05:45 141/98 H 09/05/25 05:45 141/98 H 09/05/25 05:45 141/98 H 09/05/25 05:45 99.3 F 124 H 21 93 09/05/25 05:33 99.3 F 126 H 21 91 09/05/25 05:32 156/103 H 09/05/25 05:32 156/103 H 09/05/25 05:32 156/103 H 09/05/25 05:32 156/103 H 09/05/25 05:32 156/103 H 09/05/25 05:32 156/103 H 09/05/25 05:30 99.1 F 127 H 21 91 09/05/25 05:15 99.1 F 129 H 22 90 09/05/25 05:00 165/107 H 09/05/25 05:00 165/107 H 09/05/25 05:00 165/107 H 09/05/25 05:00 165/107 H 09/05/25 05:00 165/107 H 09/05/25 05:00 99.3 F 126 H 20 92 09/05/25 04:48 173/107 H 09/05/25 04:48 173/107 H 09/05/25 04:48 173/107 H 09/05/25 04:48 173/107 H 09/05/25 04:48 99.3 F 126 H 21 92 09/05/25 04:48 173/107 H 09/05/25 04:48 173/107 H 09/05/25 04:48 173/107 H 09/05/25 04:45 99.3 F 126 H 20 93 09/05/25 04:34 185/95 H 09/05/25 04:34 185/95 H 09/05/25 04:34 185/95 H 09/05/25 04:34 185/95 H 09/05/25 04:34 185/95 H 09/05/25 04:33 99.3 F 88 23 90 09/05/25 00:04 85 20 90 Nasal Cannula 09/05/25 00:00 100 H 09/05/25 00:00 99.5 F 86 16 09/05/25 00:00 153/76 H 09/05/25 00:00 153/76 H 09/05/25 00:00 153/76 H 09/05/25 00:00 153/76 H 09/05/25 00:00 153/76 H 09/04/25 23:00 99.7 F H 91 H 20 91 O2 Flow Rate 09/05/25 07:10 10 09/05/25 06:45 09/05/25 06:45 09/05/25 06:45 09/05/25 06:30 09/05/25 06:30 09/05/25 06:30 09/05/25 06:30 09/05/25 06:30 09/05/25 06:30 09/05/25 06:00 09/05/25 06:00 09/05/25 06:00 09/05/25 06:00 09/05/25 06:00 09/05/25 06:00 09/05/25 05:45 09/05/25 05:45 09/05/25 05:45 09/05/25 05:45 09/05/25 05:45 09/05/25 05:45 09/05/25 05:45 09/05/25 05:45 09/05/25 05:45 09/05/25 05:45 09/05/25 05:33 09/05/25 05:32 09/05/25 05:32 09/05/25 05:32 09/05/25 05:32 09/05/25 05:32 09/05/25 05:32 09/05/25 05:30 09/05/25 05:15 09/05/25 05:00 09/05/25 05:00 09/05/25 05:00 09/05/25 05:00 09/05/25 05:00 09/05/25 05:00 09/05/25 04:48 09/05/25 04:48 09/05/25 04:48 09/05/25 04:48 09/05/25 04:48 09/05/25 04:48 09/05/25 04:48 09/05/25 04:48 09/05/25 04:45 09/05/25 04:34 09/05/25 04:34 09/05/25 04:34 09/05/25 04:34 09/05/25 04:34 09/05/25 04:33 09/05/25 00:04 6 09/05/25 00:00 09/05/25 00:00 09/05/25 00:00 09/05/25 00:00 09/05/25 00:00 09/05/25 00:00 09/05/25 00:00 09/04/25 23:00 Coding Level of Care Code 69385 SUB INP/OBS CARE 2/35MIN Diagnoses Abdominal pain R10.9
--- NOTE | 2025-09-05 10:43 | Electrocardiogram Report ---
Test Reason : Blood Pressure : */* mmHG Vent. Rate : 126 BPM Atrial Rate : 126 BPM P-R Int : 144 ms QRS Dur : 92 ms QT Int : 334 ms P-R-T Axes : -22 -73 47 degrees QTcB Int : 483 ms Suspect SVT Left axis deviation Incomplete right bundle branch block Abnormal ECG When compared with ECG of 02-Sep-2025 10:46, (unconfirmed) RI interval has decreased Supraventricular tachycardia is now Present Confirmed by Carlos Jain ([id number]) on 09/05/2025 10:42:32 AM Referred By: REFERRED SELF Confirmed By: Carlos Jain
--- NOTE | 2025-09-05 10:52 | Electrocardiogram Report ---
Test Reason : Blood Pressure : */* mmHG Vent. Rate : 125 BPM Atrial Rate : 125 BPM P-R Int : 160 ms QRS Dur : 94 ms QT Int : 346 ms P-R-T Axes : * -76 33 degrees QTcB Int : 499 ms Supraventricular tachycardia Left axis deviation Pulmonary disease pattern Abnormal ECG When compared with ECG of 03-Sep-2025 10:15, (unconfirmed) No significant change Confirmed by Carlos Jain ([id number]) on 09/05/2025 10:51:45 AM Referred By: REFERRED SELF Confirmed By: Carlos Jain
--- NOTE | 2025-09-05 11:23 | Cardiology Progress Note ---
Date of Service September 05, 2025 Assessment & Plan (1) Hypotension: (2) Cardiomyopathy: (3) (HFpEF) heart failure with preserved ejection fraction: (4) SVT (supraventricular tachycardia): Plan 1. Hypotension: This has resolved and does not seem to be related to his arrhythmia. Even with increasing his diltiazem and adding low-dose metoprolol his blood pressure is elevated, not low. 2. Cardiomyopathy: He has a history of hypertrophic cardiomyopathy as well as right ventricular dysfunction. Both of these findings may make him more sensitive to volume and rhythm disturbances than with normal physiology. We will be assessing these with his echocardiogram. 3. HFpEF: He has a history of heart failure with a preserved ejection fraction, he does not appear to be in heart failure now and was likely volume depleted. It is likely that he is sensitive to fluid shifts and I would be cautious with fluid overload which might induce heart failure. He may also be sensitive to abnormal tachycardia such as his SVT. 4. SVT: I cannot tell the mechanism of his SVT, it does not appear to be classic (typical) AV curtis reentry due to a long RP interval, so it could be a long RP (atypical) AV curtis reentry, a bypass tract tachycardia or some type of adenosine sensitive atrial tachycardia. Since it clearly terminated with adenosine I did start diltiazem to see if we can keep him from having recurrence of this arrhythmia, this was somewhat successful in that it decreased the duration of his events but he still spends substantial amount of time in SVT. It may in part be catecholamine dependent, I am sure he is in a high catecholamine state. Addition of low-dose metoprolol (25 mg twice a day) has not helped a lot but he has tolerated it well. I am going to increase the dose today. Whether he should have an electrophysiologic study and ablation at some point is not clear, certainly not now. Admission and Anticipated Discharge Date Admission Date: September 02, 2025 Subjective He is not feeling very well, but he is not having as much abdominal discomfort as he has been. He still remains unaware of his cardiac rhythm. Physical Exam Physical Exam: Constitutional: Alert, cooperative and in moderate distress. HEENT: Unremarkable, on oxygen Neck: No jugular venous distention, carotid pulses are rapid but normal and equal bilaterally without bruits. Pulmonary: Clear to auscultation bilaterally on limited exam supine. Cardiac: Regular rapid rhythm with no murmur, gallop or rub. Abdomen: Very tender, decreased bowel sounds. Extremities: No edema. Neurologic: No focal findings, moves all extremities Skin: No rash, ecchymoses or petechiae. Results & Data Vital Signs (Past 12 Hours) Vital Signs Temp Pulse Pulse Resp BP Pulse Ox O2 Del Method 09/05/25 10:54 123 H 09/05/25 10:00 37.3 C 124 H 17 152/94 H 96 09/05/25 09:00 37.3 C 127 H 21 152/100 H 93 09/05/25 08:45 37.2 C 125 H 19 135/97 94 Oxymask 09/05/25 08:15 158/107 H 09/05/25 07:10 117 H 20 93 Oxymask 09/05/25 06:45 157/90 H 09/05/25 06:45 157/90 H 09/05/25 06:45 37.3 C 85 24 93 09/05/25 06:30 37.3 C 126 H 23 94 09/05/25 06:30 160/109 H 09/05/25 06:30 160/109 H 09/05/25 06:30 160/109 H 09/05/25 06:30 160/109 H 09/05/25 06:30 160/109 H 09/05/25 06:00 160/101 H 09/05/25 06:00 160/101 H 09/05/25 06:00 160/101 H 09/05/25 06:00 160/101 H 09/05/25 06:00 160/101 H 09/05/25 06:00 37.3 C 123 H 17 92 09/05/25 05:45 141/98 H 09/05/25 05:45 141/98 H 09/05/25 05:45 141/98 H 09/05/25 05:45 141/98 H 09/05/25 05:45 141/98 H 09/05/25 05:45 141/98 H 09/05/25 05:45 141/98 H 09/05/25 05:45 141/98 H 09/05/25 05:45 141/98 H 09/05/25 05:45 37.4 C 124 H 21 93 09/05/25 05:33 37.4 C 126 H 21 91 09/05/25 05:32 156/103 H 09/05/25 05:32 156/103 H 09/05/25 05:32 156/103 H 09/05/25 05:32 156/103 H 09/05/25 05:32 156/103 H 09/05/25 05:32 156/103 H 09/05/25 05:30 37.3 C 127 H 21 91 09/05/25 05:15 37.3 C 129 H 22 90 09/05/25 05:00 165/107 H 09/05/25 05:00 165/107 H 09/05/25 05:00 165/107 H 09/05/25 05:00 165/107 H 09/05/25 05:00 165/107 H 09/05/25 05:00 37.4 C 126 H 20 92 09/05/25 04:48 173/107 H 09/05/25 04:48 173/107 H 09/05/25 04:48 173/107 H 09/05/25 04:48 173/107 H 09/05/25 04:48 37.4 C 126 H 21 92 09/05/25 04:48 173/107 H 09/05/25 04:48 173/107 H 09/05/25 04:48 173/107 H 09/05/25 04:45 37.4 C 126 H 20 93 09/05/25 04:34 185/95 H 09/05/25 04:34 185/95 H 09/05/25 04:34 185/95 H 09/05/25 04:34 185/95 H 09/05/25 04:34 185/95 H 09/05/25 04:33 37.4 C 88 23 90 09/05/25 00:04 85 20 90 Nasal Cannula 09/05/25 00:00 100 H 09/05/25 00:00 37.5 C 86 16 09/05/25 00:00 153/76 H 09/05/25 00:00 153/76 H 09/05/25 00:00 153/76 H 09/05/25 00:00 153/76 H 09/05/25 00:00 153/76 H O2 Flow Rate 09/05/25 10:54 09/05/25 10:00 09/05/25 09:00 09/05/25 08:45 8 09/05/25 08:15 09/05/25 07:10 10 09/05/25 06:45 09/05/25 06:45 09/05/25 06:45 09/05/25 06:30 09/05/25 06:30 09/05/25 06:30 09/05/25 06:30 09/05/25 06:30 09/05/25 06:30 09/05/25 06:00 09/05/25 06:00 09/05/25 06:00 09/05/25 06:00 09/05/25 06:00 09/05/25 06:00 09/05/25 05:45 09/05/25 05:45 09/05/25 05:45 09/05/25 05:45 09/05/25 05:45 09/05/25 05:45 09/05/25 05:45 09/05/25 05:45 09/05/25 05:45 09/05/25 05:45 09/05/25 05:33 09/05/25 05:32 09/05/25 05:32 09/05/25 05:32 09/05/25 05:32 09/05/25 05:32 09/05/25 05:32 09/05/25 05:30 09/05/25 05:15 09/05/25 05:00 09/05/25 05:00 09/05/25 05:00 09/05/25 05:00 09/05/25 05:00 09/05/25 05:00 09/05/25 04:48 09/05/25 04:48 09/05/25 04:48 09/05/25 04:48 09/05/25 04:48 09/05/25 04:48 09/05/25 04:48 09/05/25 04:48 09/05/25 04:45 09/05/25 04:34 09/05/25 04:34 09/05/25 04:34 09/05/25 04:34 09/05/25 04:34 09/05/25 04:33 09/05/25 00:04 6 09/05/25 00:00 09/05/25 00:00 09/05/25 00:00 09/05/25 00:00 09/05/25 00:00 09/05/25 00:00 09/05/25 00:00 Laboratory Results Cardiac Enzymes 09/05/25 Range/Units 04:05 AST 23 (13-39) U/L Coagulation 09/05/25 Range/Units 04:05 PT 11.5 (9.0-12.0) Seconds CBC 09/05/25 Range/Units 04:05 WBC 7.34 (4.8-10.8) K/ul RBC 4.30 L (4.70-6.10) M/uL Hgb 13.1 L (14.0-18.0) g/dL Hct 37.6 L (42.0-52.0) % Plt Count 196 (130-400) K/uL Neut # (Auto) 5.50 (1.40-6.50) K/uL Lymph # (Auto) 0.67 L (1.20-3.40) K/uL [place] # (Auto) 1.04 H (0.11-0.59) K/uL Eos # (Auto) 0.05 (0.00-0.50) K/uL Baso # (Auto) 0.04 (0.00-0.20) K/uL Comprehensive Metabolic Panel 09/05/25 Range/Units 04:05 Sodium 144 (136-145) mmol/L Potassium 3.7 (3.5-5.1) mmol/L Chloride 111 H (98-107) mmol/L Carbon Dioxide 24 (21-32) mmol/L BUN 26 H (6-23) mg/dl Creatinine 0.69 D (0.6-1.4) mg/dl Glucose 105 H (70-99(Fasting)) mg/dl Calcium 7.6 L (8.6-10.3) mg/dl Direct Bilirubin 0.1 (0-0.2) mg/dl AST 23 (13-39) U/L ALT 14 (7-52) U/L Alkaline Phosphatase 44 (34-104) U/L Total Protein 5.7 L (6.0-8.3) gm/dl Albumin 3.1 L (3.4-5.0) gm/dl Intake and Output 09/04/25 09/05/25 09/05/25 22:59 06:59 14:59 Intake Total 1250 / 4781.667 1431.667 / 4781.667 1100 / 1100 Output Total 550 / 1625 1075 / 1625 Balance 700 / 3156.667 356.667 / 3156.667 1100 / 1100 Intake: IV 1250 / 4421.667 1071.667 / 4421.667 1100 / 1100 Acetaminophen 1,000 mg In 100 100 / 200 100 / 200 ml @ 400 mls/hr IV Q8H PRN Rx#: [id number] Plasma-Lyte A 1,000 ml @ 100 871.667 / 1100.479 7523 / 1000 mls/hr IV .Q10H JOSHUA Rx#: [id number] Sodium Chloride 0.9% 1,000 ml @ 1000 / 1000 999 mls/hr IV .Q1H1M ONE Rx#: [id number] cefTRIAXone SODIUM 2,000 mg In 50 / 50 50 ml @ 100 mls/hr IV Q24H JOSHUA Rx#:[id number] metroNIDAZOLE 500 mg In 100 ml 100 / 300 100 / 300 100 / 100 @ 100 mls/hr IV Q8H JOSHUA Rx#: [id number] Oral 360 / 360 Output: Urine Amount (Catheter) 550 / 1625 1075 / 1625 Temp Sensing Carias 550 / 1625 1075 / 1625 Other: Weight 91.7 kg Weight Measurement Method Built in [facility] Diagnostic Findings Telemetry: He still remains in SVT about half of the time, he was in for a prolonged time this morning with termination recently. Asymptomatic. PG Care Time/CCT Total # of Minutes Spent Total Time Spent with Patient: Total time spent is greater than 50% in coordination of care (as documented) at patient's floor/unit and/or counseling patient: Coding Level of Care Code 79492 SUB INP/OBS CARE 2/35MIN Diagnoses Hypotension I95.9 Cardiomyopathy I42.9 (HFpEF) heart failure with preserved ejection fraction I50.30 SVT (supraventricular tachycardia) I47.10
--- NOTE | 2025-09-05 11:40 | Hospitalist Progress Note ---
Date of Service September 05, 2025 Assessment & Plan (1) AMS (altered mental status): (2) Septic shock: (3) Acute hypoxemic respiratory failure: (4) Peripheral arterial disease: (5) LINDSAY (obstructive sleep apnea): (6) Cardiomyopathy: (7) COPD with emphysema: (8) Thoracic aortic aneurysm (TAA): (9) Alcohol use disorder: (10) Type 2 diabetes mellitus: (11) Sepsis: (12) KIM (acute kidney injury): (13) History of lobectomy of lung: (14) Fusion of spine: Plan #Septic shock #SIRS/sepsis #Altered mental status #Acute Colitis #Possible colonic obstruciton on CT 09/03 - PCR positive for EPEC, cdiff gene positive, toxin negative - repeat KUB no obvious free air - DC cefepime, continue oral vanco - consult ID , rocephin added to cover EPEC - Dry on exam, 1l NS bolus and check Starling, may give another bolus t his afternoo #Volume status -Euvolemia has been quite a challenge given his early yellow GI losses quite significant dehydration but then underlying volume sensitivity given his cardiopulmonary status -2 L given yesterday for markedly dry clinical examination. Starling suggested additional fluid responsiveness. - Clinically still mildly dry on exam dry mucous membranes, prolonged capillary refill. Starling suggested ongoing clinical response to this additional liter given today - This likely contributes but not seeming like the only source of his sinus tachycardia and has been persistently almost precisely 130 when his rates are elevated. He either seems to be in the low 80s90s or [id number]. #Sinus Tach -See cardiology notes, appreciate cardiology input management, Cardizem PRN for sustained elevations - See volume status discussion as above. Cardiology following. Repeat EKG this morning demonstrated fairly regular rate, done while patient was tachycardic.. May be reasonable to obtain another EKG when the rate is on the slow side to better demonstrate the underlying rhythm #Hypermagnesemia - I do not see that he is currently on a supplement, presentation overall would be very consistent with hypomagnesemia syndrome, altered mental status, hypotension, refractory to volume resuscitation. - Still elevated, no exogenous sources, continue to monitor #Hypoxemic respiratory failure #COPD/emphysema #Status post right middle lobectomy - Postsurgical findings stable on CT, multifocal pneumonia possible, antibiotics as above, respiratory support with nebulizers, oxygen, RT consultation Advanced airway support-okay with family, including CPAP/BiPAP or intubation if needed -continue respiratory support, stable #Diarrhea #Abdominal pain prior to presentation - EPEC and C. difficile toxin as noted above. GI following, free water enemas today, Rocephin for EPEC - Stool consistency and frequency decreasing. Rectal tube discontinued #KIM - Likely prerenal in the setting of acute illness as above, status post 30 mg/kg, continue to monitor, avoid nephrotoxic substances - slightly elevated, almost back to baseline, fluid as above, daily monitoring #Type 2 diabetes - Hold tirzepatide, sliding scale per ICU protocol on admission - within goal range #Alcohol use disorder history of withdrawl - naltrexone is on his home medication list, will review further with his - In regards to the role alcohol or alcohol withdrawal may be playing in current presentation, could certainly be exacerbating mental status changes - add liver functions and lipase - High risk for withdrawal, AWSS screen orders placed - reviewed with his , minimal to no use, reports one glass of wine last week, roasterman sobriety #Altered mental status - Likely mixed etiology, toxic/infectious as above, metabolic in regards to possible alcohol withdrawal/hypermagnesemia. Continue to monitor closely with AWSS - This continues to improve however he is still not back to his baseline. No acute deficits noted. Consistent with toxic encephalopathy given level of critical illness on presentation #Hypertension -Hold antihypertensives in the setting of shock as above #recurrent migraine - Hold topiramate #Thoracic aortic aneurysm -No evidence of acute pathology on CT, continue to monitor #FEN NPO initally CODE STATUS - Full code in discussion with his . She states he would not want anything prolonged if the prognosis was grim Admission and Anticipated Discharge Date Admission Date: September 02, 2025 Subjective More awake and alert this morning. Pain in the abdomen is still present but improving overall. He is still somewhat confused and tangential. States the thirst that he was complaining of significantly yesterday was better. He has no recall of discussions yesterday in the morning or throughout the day. Stools has improved to some degree. No other new or different symptoms per patient. Reviewed his heart rate findings. Goals of care for the day Physical Exam Physical Exam: Constitutional: Alert, cooperative and in moderate distress. HEENT: Unremarkable, on oxygen Neck: No jugular venous distention, carotid pulses are rapid but normal and equal bilaterally without bruits. Pulmonary: Clear to auscultation bilaterally on limited exam supine. Cardiac: Regular rapid rhythm with no murmur, gallop or rub. Abdomen: Very tender, decreased bowel sounds. Extremities: No edema. Neurologic: No focal findings, moves all extremities Skin: No rash, ecchymoses or petechiae. Results & Data Results & Data Vital Signs (Past 12 Hours) Vital Signs Temp Pulse Pulse Resp BP Pulse Ox O2 Del Method 09/05/25 10:54 123 H 09/05/25 10:00 37.3 C 124 H 17 152/94 H 96 09/05/25 09:00 37.3 C 127 H 21 152/100 H 93 09/05/25 08:45 37.2 C 125 H 19 135/97 94 Oxymask 09/05/25 08:15 158/107 H 09/05/25 07:10 117 H 20 93 Oxymask 09/05/25 06:45 157/90 H 09/05/25 06:45 157/90 H 09/05/25 06:45 37.3 C 85 24 93 09/05/25 06:30 37.3 C 126 H 23 94 09/05/25 06:30 160/109 H 09/05/25 06:30 160/109 H 09/05/25 06:30 160/109 H 09/05/25 06:30 160/109 H 09/05/25 06:30 160/109 H 09/05/25 06:00 160/101 H 09/05/25 06:00 160/101 H 09/05/25 06:00 160/101 H 09/05/25 06:00 160/101 H 09/05/25 06:00 160/101 H 09/05/25 06:00 37.3 C 123 H 17 92 09/05/25 05:45 141/98 H 09/05/25 05:45 141/98 H 09/05/25 05:45 141/98 H 09/05/25 05:45 141/98 H 09/05/25 05:45 141/98 H 09/05/25 05:45 141/98 H 09/05/25 05:45 141/98 H 09/05/25 05:45 141/98 H 09/05/25 05:45 141/98 H 09/05/25 05:45 37.4 C 124 H 21 93 09/05/25 05:33 37.4 C 126 H 21 91 09/05/25 05:32 156/103 H 09/05/25 05:32 156/103 H 09/05/25 05:32 156/103 H 09/05/25 05:32 156/103 H 09/05/25 05:32 156/103 H 09/05/25 05:32 156/103 H 09/05/25 05:30 37.3 C 127 H 21 91 09/05/25 05:15 37.3 C 129 H 22 90 09/05/25 05:00 165/107 H 09/05/25 05:00 165/107 H 09/05/25 05:00 165/107 H 09/05/25 05:00 165/107 H 09/05/25 05:00 165/107 H 09/05/25 05:00 37.4 C 126 H 20 92 09/05/25 04:48 173/107 H 09/05/25 04:48 173/107 H 09/05/25 04:48 173/107 H 09/05/25 04:48 173/107 H 09/05/25 04:48 37.4 C 126 H 21 92 09/05/25 04:48 173/107 H 09/05/25 04:48 173/107 H 09/05/25 04:48 173/107 H 09/05/25 04:45 37.4 C 126 H 20 93 09/05/25 04:34 185/95 H 09/05/25 04:34 185/95 H 09/05/25 04:34 185/95 H 09/05/25 04:34 185/95 H 09/05/25 04:34 185/95 H 09/05/25 04:33 37.4 C 88 23 90 09/05/25 00:04 85 20 90 Nasal Cannula 09/05/25 00:00 100 H 09/05/25 00:00 37.5 C 86 16 09/05/25 00:00 153/76 H 09/05/25 00:00 153/76 H 09/05/25 00:00 153/76 H 09/05/25 00:00 153/76 H 09/05/25 00:00 153/76 H O2 Flow Rate 09/05/25 10:54 09/05/25 10:00 09/05/25 09:00 09/05/25 08:45 8 09/05/25 08:15 09/05/25 07:10 10 09/05/25 06:45 09/05/25 06:45 09/05/25 06:45 09/05/25 06:30 09/05/25 06:30 09/05/25 06:30 09/05/25 06:30 09/05/25 06:30 09/05/25 06:30 09/05/25 06:00 09/05/25 06:00 09/05/25 06:00 09/05/25 06:00 09/05/25 06:00 09/05/25 06:00 09/05/25 05:45 09/05/25 05:45 09/05/25 05:45 09/05/25 05:45 09/05/25 05:45 09/05/25 05:45 09/05/25 05:45 09/05/25 05:45 09/05/25 05:45 09/05/25 05:45 09/05/25 05:33 09/05/25 05:32 09/05/25 05:32 09/05/25 05:32 09/05/25 05:32 09/05/25 05:32 09/05/25 05:32 09/05/25 05:30 09/05/25 05:15 09/05/25 05:00 09/05/25 05:00 09/05/25 05:00 09/05/25 05:00 09/05/25 05:00 09/05/25 05:00 09/05/25 04:48 09/05/25 04:48 09/05/25 04:48 09/05/25 04:48 09/05/25 04:48 09/05/25 04:48 09/05/25 04:48 09/05/25 04:48 09/05/25 04:45 09/05/25 04:34 09/05/25 04:34 09/05/25 04:34 09/05/25 04:34 09/05/25 04:34 09/05/25 04:33 09/05/25 00:04 6 09/05/25 00:00 09/05/25 00:00 09/05/25 00:00 09/05/25 00:00 09/05/25 00:00 09/05/25 00:00 09/05/25 00:00 PG Care Time/CCT Total # of Minutes Spent Total Time Spent with Patient: Total time spent is greater than 50% in coordination of care (as documented) at patient's floor/unit and/or counseling patient: Coding Level of Care Code 04311 SUB INP/OBS CARE 3/50MIN Diagnoses AMS (altered mental status) R41.82 Septic shock A41.9; R65.21 Acute hypoxemic respiratory failure J96.01 Peripheral arterial disease I73.9 LINDSAY (obstructive sleep apnea) G47.33 Cardiomyopathy I42.9 COPD with emphysema J43.9 Thoracic aortic aneurysm (TAA) I71.20 Alcohol use disorder F10.90 Type 2 diabetes mellitus without complication, without long-term current use of insulin E11.9 Diabetes mellitus roasterman insulin use: without intermediate use Diabetes mellitus complication status: without complication Sepsis A41.9 KIM (acute kidney injury) N17.9 History of lobectomy of lung Z90.2 Fusion of spine M43.20 (10) Type 2 diabetes mellitus Diabetes mellitus roasterman insulin use: without roasterman use Diabetes mellitus complication status: without complication Qualified Code(s): E11.9 - Type 2 diabetes mellitus without complications
[2025-09-05] MEDS: METOPROLOL TARTRATE 25 MG TAB PO STA (12:03)
[2025-09-05] MEDS: SODIUM CHLORIDE 0.9% 1,000 ML IV ONE (12:03)
--- NOTE | 2025-09-05 14:02 | XRay Report ---
KUB HISTORY: Acute generalized abdominal pain follow up on 09/03 CT findings COMPARISON: CT abdomen KUB 09/03/2025 FINDINGS: Air-filled stomach with persistent gaseous distention of the large and small bowel, not sig nificantly changed. Surgical clips of the pelvis. No renal calculi. No ureteral calculi. No pneumope ritoneum or pneumatosis. No fracture. IMPRESSION: 1. Persistent gaseous distention of the large and small bowel, not significantly changed from 09/03/20 25. 2. No pneumoperitoneum identified on this supine study. ACT 112: Negative or not required by law. The above report was generated using voice recognition software. It may contain grammatical, syntax o r spelling errors. Electronically signed by: Olvin Landin M.D. 09/05/2025 2:01 PM
[2025-09-05] MEDS: PLASMA-LYTE A 1,000 ML IV SCH (14:46)
[2025-09-05] MEDS: LIDOCAINE 5% 1 PATCH TD SCH (20:10)
[2025-09-05] MEDS: METOPROLOL TARTRATE 50 MG TAB PO SCH (20:12)
[2025-09-05] MEDS: REMOVE LIDODERM PATCH SCH (20:13)
[2025-09-05] MEDS: HYDROmorphone INJ 0.5 MG/0.5 ML SYR IV PRN (22:27)
[2025-09-06 05:28] LABS: Hematocrit (blood only) 40.7 % (42.0-52.0); Hemoglobin 13.3 g/dL (14.0-18.0); Mean Corpuscular Hemoglobin 28.7 pg (25.0-34.0); Mean Corpuscular Volume 87.9 fL (80.0-100.0); Platelet Count 211 K/uL (130-400); RDW Standard Deviation 51.8 fL (36.4-46.3); Red Blood Count 4.63 M/uL (4.70-6.10); White Blood Count 6.69 K/ul (4.8-10.8)
[2025-09-06 05:40] LABS: Alanine Aminotransferase 13.0 U/L (7-52); Albumin Globulin Ratio 1.2 (0.9-2); Albumin Level 3.1 gm/dl (3.4-5.0); Alkaline Phosphatase 42.0 U/L (34-104); Anion Gap 9.0 (3-11); Bilirubin,Total 0.6 mg/dl (0.2-1.0); Blood Urea Nitrogen 21.0 mg/dl (6-23); Calcium 7.8 mg/dl (8.6-10.3); Carbon Dioxide 25.0 mmol/L (21-32); Chloride 111.0 mmol/L (98-107); Creatinine Clr Calc Pharmacy 115.9 ml/min; Globulin 2.5 gm/dl (2.5-4.0); Glucose 92.0 mg/dl (70-99(Fasting)); Magnesium 2.7 mg/dl (1.7-2.4); Potassium 3.6 mmol/L (3.5-5.1); Sodium 145.0 mmol/L (136-145); Total Protein 5.6 gm/dl (6.0-8.3)
[2025-09-06 06:13] LABS: Dohle Bodies 1+; Immature Granulocytes # (auto) 0.02 K/uL (0.01-0.20); Immature Granulocytes % (auto) 0.3 %; Polychromasia 1+
--- NOTE | 2025-09-06 10:29 | Gastroenterology Progress Note ---
Date of Service September 06, 2025 Assessment & Plan (1) Abdominal pain: Plan: Concern for [place] after infectious enteritis. Patient has been passing stools but has ongoing abdominal distention. - will plan to update a KUB this morning to check for any change in colonic distention. -Further recommendations to come with Supervising GI provider on medical rounds. Please see co-signature comments. Admission and Anticipated Discharge Date Admission Date: September 02, 2025 Supervising Physician Co-Signing Physician Notes I personally saw and examined the patient. I have reviewed the chart and agree with the documentation provided by the DAIRY HUSBANDMAN including discussion about the assessment, treatment and plan. Briefly, his KUB showed moderate dilation of mainly the large bowel loops but now also some of the small bowel loops. He has [place] syndrome after infectious enteritis my plan was to do a colonic deco mpression. Unfortunately, he had some heart failure and emphysema and his oxygen requirement in the last 3 hours is increased drastically and his mental status has changed. It is not safe to do an elective procedure like this currently. Will have to use enemas turn him over the weekend and consider a decompression if he does not improve. Given his tachycardia I am very hesitant to use neostigmine at this time Subjective Patient lethargic but pleasant. He reports that abdominal pain is somewhat better, but abdomen is still distended. he had done a tap water enema yesterday but was unable to retain per nursing. Nursing reports that he had large liquid stools yesterday and earlier this morning. KUB from yesterday shown ongoing distention. 09/05/25 KUB - Persistent gaseous distention of the large and small bowel, not significantly changed from 09/03/2025. No pneumoperitoneum identified on this supine study. 09/06/25 wbc 6.69, hgb 13.3, hct 40.7, plts 211, Na 145, K 3.6, BUN 21, Cr 0.61, LFTs wnl. Review of Systems Review of Systems: All systems reviewed & are unremarkable except as noted in HPI & below Physical Exam Constitutional: WD/WN, vitals as above Respiratory: normal respiratory effort, lungs clear to auscultation Cardiovascular: Rate/Rhythm: regular rate and regular rhythm Gastrointestinal (Abdomen): distended, soft, bowel sounds present. mild tenderness to palpation. Psychiatric: Orientation: oriented x 3 and cooperative Results & Data Results & Data Vital Signs (Past 12 Hours) Vital Signs Temp Pulse Pulse Resp BP Pulse Ox O2 Del Method 09/06/25 06:00 99.5 F 74 17 93 09/06/25 06:00 131/76 09/06/25 06:00 131/76 09/06/25 06:00 131/76 09/06/25 06:00 131/76 09/06/25 06:00 131/76 09/06/25 05:48 99.5 F 76 20 93 09/06/25 05:47 154/78 H 09/06/25 05:47 154/78 H 09/06/25 05:47 154/78 H 09/06/25 05:47 154/78 H 09/06/25 05:47 154/78 H 09/06/25 05:45 99.5 F 76 19 93 09/06/25 05:00 99.1 F 75 19 93 09/06/25 04:00 165/90 H 09/06/25 04:00 165/90 H 09/06/25 04:00 165/90 H 09/06/25 04:00 165/90 H 09/06/25 04:00 165/90 H 09/06/25 04:00 99.1 F 78 13 92 09/06/25 03:45 99.3 F 74 16 95 09/06/25 00:37 77 18 91 Nasal Cannula 09/06/25 00:00 79 09/06/25 00:00 149/81 H 09/06/25 00:00 149/81 H 09/06/25 00:00 149/81 H 09/06/25 00:00 149/81 H 09/06/25 00:00 149/81 H 09/06/25 00:00 99.5 F 75 15 91 09/05/25 22:39 104 H 22 91 Nasal Cannula 09/05/25 22:36 84 20 94 O2 Flow Rate FiO2 09/06/25 06:00 09/06/25 06:00 09/06/25 06:00 09/06/25 06:00 09/06/25 06:00 09/06/25 06:00 09/06/25 05:48 09/06/25 05:47 09/06/25 05:47 09/06/25 05:47 09/06/25 05:47 09/06/25 05:47 09/06/25 05:45 09/06/25 05:00 09/06/25 04:00 09/06/25 04:00 09/06/25 04:00 09/06/25 04:00 09/06/25 04:00 09/06/25 04:00 09/06/25 03:45 09/06/25 00:37 4 09/06/25 00:00 09/06/25 00:00 09/06/25 00:00 09/06/25 00:00 09/06/25 00:00 09/06/25 00:00 09/06/25 00:00 09/05/25 22:39 6 09/05/25 22:36 40 Coding Level of Care Code 55499 SUB INP/OBS CARE 2/35MIN Diagnoses Abdominal pain R10.9
--- NOTE | 2025-09-06 11:42 | XRay Report ---
KUB CLINICAL HISTORY: Abdominal distention. FINDINGS: 2 AP, portable, supine abdominal radiographs are compared to study dated 09/05/2025 and cor related with abdominal CT dated 09/03/2025. Fecal retention is again seen in the right colon. There is diffuse gaseous distention of the small bowel loops, as well as gaseous distention of the colon. No evidence of intraperitoneal free air is seen on these supine images. There are no abnormal abdominal calcifications. Numerous clips project over the pelvis. The skeletal structures are osteopenic. There is lumbosacral spondylosis and scoliosis. IMPRESSION: 1. There is moderate fecal retention again seen in the right colon. 2. There is persistent gaseous distention of the small bowel loops and colon suggestive of ileus. Obs truction is considered less likely and clinical correlation will be required. Electronically signed by: Peewee Smith M.D. 09/06/2025 11:40 AM
--- NOTE | 2025-09-06 12:06 | Infectious Disease Progress Nt ---
Date of Service September 06, 2025 Assessment & Plan (1) Enteropathogenic Escherichia coli infection: (2) C. difficile colitis: Plan Problems: #EPEC #? C diff #Ileus #Abdominal pain #Shock Micro: 09/02 UCx: NG 09/02 BCx x2: NGTD Abx: PO vanc 09/02 - present Metronidazole 09/02 - present Ceftriaxone 09/03 - 09/05 Cefepime 09/02 - 09/03 IV vanc 09/02 - 09/03 79 yo M with history of ischemic cardiomyopathy, HFpEF, PAD, COPD with emphysema, thoracic aortic aneurysm, LINDSAY, degenerative back disease, history of recurrent multifocal pneumonia, HTN with labile BPs, history of alcohol dependence, migraine who presented on 09/02 with abrupt onset confusion, weakness, found to have colitis, sepsis. Per his , he was in his usual state of health the day prior to presentation. Overnight around 3am, pt went to the bathroom, had cramps and dry heaving. A few hours later, pt attempted to get up to use the bathroom again but was unable to do so independently and needed assistance from his . She reports he had a small amount of loose stool at that time, no blood noted in the stool. He was so weak that he was unable to get back to bed independently. EMS was called, and noted pt to be febrile to 102, hypotensive, hypoxic. Was placed on 3 L NC. On presentation, pt was afebrile, HR 120, BP 70/54. Did later become febrile to 38. Labs showed WBC 9.58, Cr 1.45, lactate 1.7 --> 2.8, procalcitonin 18.4. UA with 0-5 WBCs. RVP negative. CTAP with IV contrast showed moderate circumferential wall thickening of mid to distal descending and proximal to mid sigmoid colon, associated inflammation, findings representing a nonspecific colitis, possibly stercoral. Infectious or ischemic colitis also within differential. Large amount of stool within the colon and rectum. CTA chest with no PE, dependent airspace opacities favor atelectasis on top of chronic scarring, no airspace consolidation typical for pneumonia. Pt given IVF, started on vanc and cefepime. Was hypotensive despite fluid resuscitation, so admitted to ICU. Briefly on Levophed in ER. Stool PCR panel positive for EPEC and C diff gene, negative for C diff toxin. Rectal tube placed 09/02. Pt continued with elevated temps, last fever 09/03 AM. On evaluation 09/03, pt reported continued severe pain from his chest down to his pelvis, slightly improved from admission. He feels this pain is in his muscle. Thinks his diarrhea is improving, and he is not having abdominal cramping as much. reports he had C diff years ago. His denies diarrhea, and states she eats mostly the same things as her , aside from some fruits that her eats. KUB repeated 09/03, showing increase in gaseous distension of small and large bowel, likely related to colitis on CT, however distal colonic obstruction difficult to completely exclude. Large amount of poorly formed stool throughout colon and rectum. CTAP repeated 09/03 PM, which showed excess stool burden in the rectum with upstream colonic distension up to 7 cm concerning for obstruction. GI consulted, noted that pt has been moving his bowels. They are concerned for [place] after infectious enteritis. Discussion: EPEC is typically managed with supportive care, although antibiotics may be used in severe, bloody, or persistent diarrhea--treated with ceftriaxone x 3 days given pt's persistent fevers, diarrhea. C diff PCR positive, toxin negative could indicate C diff colonization rather than infection, but reasonable to treat given diarrhea. Administering as high dose PO vanc and IV flagyl in the setting of ileus. Recommendations: - Continue PO vanc 500 mg QID and metronidazole 500 mg IV q8h for possible fulminant C diff, given ileus. Hope to de-escalate to PO vanc 125 mg QID soon if ileus resolving Please note that ID does not round or write notes over the weekend. If questions or concerns arise, please contact the Infectious Disease Call Center and ask to speak with the covering ID physician. Admission and Anticipated Discharge Date Admission Date: September 02, 2025 Subjective This patient recommendation is based on a telemedicine consult request which was completed asynchronously through chart review and information provided by the primary physician. The patient was not seen or examined today. The evaluation is consultative in nature and all patient care and treatment decisions can either be accepted or rejected by the patient's primary hospital-based treating physician using their own independent medical judgment for their patient. Time Spent Reviewing Chart: 11 - 20 minutes Pt having loose stools KUB today with moderate fecal retention again seen in R colon, persistent gaseous distension of small bowel loops and colon suggestive of ileus Afebrile without leukocytosis Continues on PO vanc, IV flagyl Results & Data Vital Signs (Past 12 Hours) Vital Signs Temp Pulse Pulse Resp BP Pulse Ox O2 Del Method 09/06/25 11:59 76 20 95 Nasal Cannula 09/06/25 11:00 37.4 C 80 17 92 09/06/25 10:00 37.2 C 78 23 178/99 H 92 09/06/25 09:30 Nasal Cannula 09/06/25 09:00 37.1 C 78 22 91 09/06/25 08:00 82 09/06/25 08:00 37.2 C 78 24 162/101 H 92 09/06/25 06:00 37.5 C 74 17 93 09/06/25 06:00 131/76 09/06/25 06:00 131/76 09/06/25 06:00 131/76 09/06/25 06:00 131/76 09/06/25 06:00 131/76 09/06/25 05:48 37.5 C 76 20 93 09/06/25 05:47 154/78 H 09/06/25 05:47 154/78 H 09/06/25 05:47 154/78 H 09/06/25 05:47 154/78 H 09/06/25 05:47 154/78 H 09/06/25 05:45 37.5 C 76 19 93 09/06/25 05:00 37.3 C 75 19 93 09/06/25 04:00 165/90 H 09/06/25 04:00 165/90 H 09/06/25 04:00 165/90 H 09/06/25 04:00 165/90 H 09/06/25 04:00 165/90 H 09/06/25 04:00 37.3 C 78 13 92 09/06/25 03:45 37.4 C 74 16 95 09/06/25 00:37 77 18 91 Nasal Cannula O2 Flow Rate 09/06/25 11:59 6 09/06/25 11:00 09/06/25 10:00 09/06/25 09:30 6 09/06/25 09:00 09/06/25 08:00 09/06/25 08:00 09/06/25 06:00 09/06/25 06:00 09/06/25 06:00 09/06/25 06:00 09/06/25 06:00 09/06/25 06:00 09/06/25 05:48 09/06/25 05:47 09/06/25 05:47 09/06/25 05:47 09/06/25 05:47 09/06/25 05:47 09/06/25 05:45 09/06/25 05:00 09/06/25 04:00 09/06/25 04:00 09/06/25 04:00 09/06/25 04:00 09/06/25 04:00 09/06/25 04:00 09/06/25 03:45 09/06/25 00:37 4
--- NOTE | 2025-09-06 13:31 | XRay Report ---
SINGLE VIEW CHEST CLINICAL HISTORY: Dyspnea FINDINGS: An AP, portable, upright chest radiograph is compared to chest x-ray and chest CT dated 09/02/2025. The heart is enlarged. There is pulmonary vascular congestion with interstitial edema. Emphys sebastián and chronic interstitial thickening is similar to previous. There are small pleural effusions wit h dependent consolidation. No pneumothorax is seen. The skeletal structures are osteopenic. The bony thorax is grossly intact. Fusion hardware is seen in the lower cervical spine. IMPRESSION: 1. Cardiomegaly and emphysema with evidence of congestive failure and pulmonary edema. Radiographic f ollow-up to resolution is recommended. 2. Small pleural effusions with bibasilar consolidation. ACT 112: Negative or not required by law. Electronically signed by: Peewee Smith M.D. 09/06/2025 1:30 PM
[2025-09-06 13:44] LABS: iSTAT Art Bld Gas Base Excess -2.0 mmol/L (-9-1.8); iSTAT Art Bld Gas pCO2 Correct 46 mmHg (35-46); iSTAT Art Bld Gas pH Corrected 7.319 (7.35-7.45); iSTAT Arterial Blood Gas pO2 C 60
[2025-09-06] MEDS: FUROSEMIDE 40 MG/4 ML VIAL IV ONE (13:56)
--- NOTE | 2025-09-06 17:09 | Hospitalist Progress Note ---
Date of Service September 06, 2025 Assessment & Plan (1) AMS (altered mental status): (2) Septic shock: (3) Acute hypoxemic respiratory failure: (4) Peripheral arterial disease: (5) LINDSAY (obstructive sleep apnea): (6) Cardiomyopathy: (7) COPD with emphysema: (8) Thoracic aortic aneurysm (TAA): (9) Alcohol use disorder: (10) Type 2 diabetes mellitus: (11) Sepsis: (12) KIM (acute kidney injury): (13) History of lobectomy of lung: (14) Fusion of spine: Plan #Septic shock #SIRS/sepsis #Altered mental status #Acute Colitis #Possible colonic obstruciton on CT 09/03 - PCR positive for EPEC, cdiff gene positive, toxin negative - repeat KUB no obvious free air - DC cefepime, continue oral vanco - consult ID , rocephin added to cover EPEC - Interval mild progression in gastric distention, 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 Will continue bowel rest, day 4 of 5. Given his change in respiratory status I suspect that we will need to transition over to PPN or TPN tomorrow #Acute respiratory decompensation - X-ray consistent with volume overload. Lasix initiated. Monitor close intake and output, continue Carias. - BiPAP placed. Patient tolerating relatively well, normalized oxygen. Slightly confused and anxious. Low-dose morphine with good effect. - Continue supportive cares, aggressive diuresis for at least 1-2 L and reevaluate #Volume status -Euvolemia has been quite a challenge given his early yellow GI losses quite significant dehydration but then underlying volume sensitivity given his cardiopulmonary status -2 L given yesterday for markedly dry clinical examination. Starling suggested additional fluid responsiveness. - Clinically still mildly dry on exam dry mucous membranes, prolonged capillary refill. Starling suggested ongoing clinical response to this additional liter given today - See respiratory decompensation as above. Transition to volume overload with the last liter bolus #Sinus Tach -See cardiology notes, appreciate cardiology input management, Cardizem PRN for sustained elevations - See volume status discussion as above. Cardiology following. Repeat EKG this morning demonstrated fairly regular rate, done while patient was tachycardic.. May be reasonable to obtain another EKG when the rate is on the slow side to better demonstrate the underlying rhythm - Largely sinus rhythm in the 70s to 90s #Hypermagnesemia - I do not see that he is currently on a supplement, presentation overall would be very consistent with hypomagnesemia syndrome, altered mental status, hypotension, refractory to volume resuscitation. - Still elevated, no exogenous sources, continue to monitor, trending downward #Hypoxemic respiratory failure #COPD/emphysema #Status post right middle lobectomy - Postsurgical findings stable on CT, multifocal pneumonia possible, antibiotics as above, respiratory support with nebulizers, oxygen, RT consultation Advanced airway support-okay with family, including CPAP/BiPAP or intubation if needed -continue respiratory support, stable #Diarrhea #Abdominal pain prior to presentation - EPEC and C. difficile toxin as noted above. GI following, free water enemas today, Rocephin for EPEC - Stool consistency and frequency decreasing. Rectal tube discontinued #KIM - Likely prerenal in the setting of acute illness as above, status post 30 mg/kg, continue to monitor, avoid nephrotoxic substances - slightly elevated, almost back to baseline, fluid as above, daily monitoring #Type 2 diabetes - Hold tirzepatide, sliding scale per ICU protocol on admission - within goal range #Alcohol use disorder history of withdrawl - naltrexone is on his home medication list, will review further with his - In regards to the role alcohol or alcohol withdrawal may be playing in current presentation, could certainly be exacerbating mental status changes - add liver functions and lipase - High risk for withdrawal, AWSS screen orders placed - reviewed with his , minimal to no use, reports one glass of wine last week, trace clerk sobriety #Altered mental status - Likely mixed etiology, toxic/infectious as above, metabolic in regards to possible alcohol withdrawal/hypermagnesemia. Continue to monitor closely with AWSS - This continues to improve however he is still not back to his baseline. No acute deficits noted. Consistent with toxic encephalopathy given level of critical illness on presentation #Hypertension -Hold antihypertensives in the setting of shock as above #recurrent migraine - Hold topiramate #Thoracic aortic aneurysm -No evidence of acute pathology on CT, continue to monitor #FEN NPO initally CODE STATUS - Full code in discussion with his . She states he would not want anything prolonged if the prognosis was grim Admission and Anticipated Discharge Date Admission Date: September 02, 2025 Subjective Patient was doing very well this morning as well as I had seen him throughout this hospitalization. He was still feeling extremely thirsty again. Another liter of normal saline was given. He was then transferred from ICU up to the PCU floor as he has been PCU status for several days. On arrival there he was increased work of breathing, altered and confused. Increased oxygen requirements. I was called to the bedside for evaluation. Physical Exam Physical Exam: Constitutional: Alert, cooperative and in moderate distress. HEENT: Unremarkable, on oxygen Neck: No jugular venous distention, carotid pulses are rapid but normal and equal bilaterally without bruits. Pulmonary: Interval increase in expiratory phase wheezing and crackles bilaterally. Cardiac: Regular rapid rhythm with no murmur, gallop or rub. Abdomen: Very tender, decreased bowel sounds. Extremities: No edema. Neurologic: No focal findings, moves all extremities Skin: No rash, ecchymoses or petechiae. Results & Data Results & Data Vital Signs (Past 12 Hours) Vital Signs Temp Pulse Pulse Resp BP BP Pulse Ox 09/06/25 15:23 36.9 C 75 17 125/79 95 09/06/25 15:12 77 09/06/25 14:05 76 17 94 09/06/25 12:07 160/88 H 09/06/25 12:06 76 16 98 09/06/25 12:02 162/87 H 09/06/25 12:00 77 17 97 09/06/25 11:59 76 20 95 09/06/25 11:42 167/100 H 09/06/25 11:42 167/100 H 09/06/25 11:42 79 19 09/06/25 11:00 37.4 C 80 17 92 09/06/25 10:00 37.2 C 78 23 178/99 H 92 09/06/25 09:30 09/06/25 09:00 37.1 C 78 22 91 09/06/25 08:00 82 09/06/25 08:00 37.2 C 78 24 162/101 H 92 09/06/25 07:00 78 09/06/25 06:00 37.5 C 74 17 93 09/06/25 06:00 131/76 09/06/25 06:00 131/76 09/06/25 06:00 131/76 09/06/25 06:00 131/76 09/06/25 06:00 131/76 09/06/25 05:48 37.5 C 76 20 93 09/06/25 05:47 154/78 H 09/06/25 05:47 154/78 H 09/06/25 05:47 154/78 H 09/06/25 05:47 154/78 H 09/06/25 05:47 154/78 H 09/06/25 05:45 37.5 C 76 19 93 O2 Del Method O2 Flow Rate FiO2 09/06/25 15:23 BiPAP 50 09/06/25 15:12 09/06/25 14:05 50 09/06/25 12:07 09/06/25 12:06 09/06/25 12:02 09/06/25 12:00 09/06/25 11:59 Nasal Cannula 6 09/06/25 11:42 09/06/25 11:42 09/06/25 11:42 09/06/25 11:00 09/06/25 10:00 09/06/25 09:30 Nasal Cannula 6 09/06/25 09:00 09/06/25 08:00 09/06/25 08:00 09/06/25 07:00 09/06/25 06:00 09/06/25 06:00 09/06/25 06:00 09/06/25 06:00 09/06/25 06:00 09/06/25 06:00 09/06/25 05:48 09/06/25 05:47 09/06/25 05:47 09/06/25 05:47 09/06/25 05:47 09/06/25 05:47 09/06/25 05:45 Laboratory Results 09/06/25 09/06/25 09/06/25 13:29 12:16 05:38 WBC RBC Hgb POC Hgb 12.6 L Hct POC Hct 37 L MCV MCH MCHC RDW Std Deviation RDW Coeff of Roni Plt Count MPV Immature Gran % (Auto) Neut % (Auto) Lymph % (Auto) Lincoln % (Auto) Eos % (Auto) Baso % (Auto) Neut # (Auto) Lymph # (Auto) Lincoln # (Auto) Eos # (Auto) Baso # (Auto) Immature Gran # (Auto) Dohle Bodies Polychromasia Echinocytes Specimen Type Arterial Sample Site R Radial POC pH 7.32 L POC pCO2 47 H POC pO2 61 L POC HCO3 24 POC Total CO2 25 POC Base Excess -2.0 O2 Sat Pulse Oximetry 93 ABG pH (Temp Correct) 7.319 L ABG pCO2 (Temp Corrct 46 POC ABG pO2 at Pt Temp 60 POC ABG O2 Sat 89.0 L Troy Test Pass O2 Delivery Device Cannula POC Sodium 146 H Sodium POC Potassium 3.4 Potassium Chloride Carbon Dioxide Anion Gap BUN Creatinine Est Cr Clr Drug Dosing eGFR BUN/Creatinine Ratio Glucose POC Glucose 73 82 Calcium Magnesium Total Bilirubin AST ALT Alkaline Phosphatase Total Protein Albumin Globulin Albumin/Globulin Ratio 09/06/25 09/05/25 09/05/25 04:59 23:10 18:07 WBC 6.69 RBC 4.63 L Hgb 13.3 L POC Hgb Hct 40.7 L POC Hct MCV 87.9 MCH 28.7 MCHC 32.7 RDW Std Deviation 51.8 H RDW Coeff of Roni 16.0 H Plt Count 211 MPV 10.6 Immature Gran % (Auto) 0.3 Neut % (Auto) 59.1 Lymph % (Auto) 16.4 Lincoln % (Auto) 19.1 Eos % (Auto) 3.9 Baso % (Auto) 1.2 Neut # (Auto) 3.95 Lymph # (Auto) 1.10 L Lincoln # (Auto) 1.28 H Eos # (Auto) 0.26 Baso # (Auto) 0.08 Immature Gran # (Auto) 0.02 Dohle Bodies 1+ Polychromasia 1+ Echinocytes 1+ Specimen Type Sample Site POC pH POC pCO2 POC pO2 POC HCO3 POC Total CO2 POC Base Excess O2 Sat Pulse Oximetry ABG pH (Temp Correct) ABG pCO2 (Temp Corrct POC ABG pO2 at Pt Temp POC ABG O2 Sat Troy Test O2 Delivery Device POC Sodium Sodium 145 POC Potassium Potassium 3.6 Chloride 111 H Carbon Dioxide 25 Anion Gap 9 BUN 21 Creatinine 0.61 Est Cr Clr Drug Dosing 115.9 eGFR 98.32 BUN/Creatinine Ratio 34.4 H Glucose 92 POC Glucose 95 89 Calcium 7.8 L Magnesium 2.7 H Total Bilirubin 0.6 AST 21 ALT 13 Alkaline Phosphatase 42 Total Protein 5.6 L Albumin 3.1 L Globulin 2.5 Albumin/Globulin Ratio 1.2 Diagnostic Findings KUB X-Ray 09/06/25 10:40 KUB CLINICAL HISTORY: Abdominal distention. FINDINGS: 2 AP, portable, supine abdominal radiographs are compared to study dated 09/05/2025 and correlated with abdominal CT dated 09/03/2025. Fecal retention is again seen in the right colon. There is diffuse gaseous distention of the small bowel loops, as well as gaseous distention of the colon. No evidence of intraperitoneal free air is seen on these supine images. There are no abnormal abdominal calcifications. Numerous clips project over the pelvis. The skeletal structures are osteopenic. There is lumbosacral spondylosis and scoliosis. IMPRESSION: 1. There is moderate fecal retention again seen in the right colon. 2. There is persistent gaseous distention of the small bowel loops and colon suggestive of ileus. Obstruction is considered less likely and clinical correlation will be required. Electronically signed by: Peewee Smith M.D. 09/06/2025 11:40 AM Chest X-Ray 09/06/25 13:01 SINGLE VIEW CHEST CLINICAL HISTORY: Dyspnea FINDINGS: An AP, portable, upright chest radiograph is compared to chest x-ray and chest CT dated 09/02/2025. The heart is enlarged. There is pulmonary vascular congestion with interstitial edema. Emphysema and chronic interstitial thickening is similar to previous. There are small pleural effusions with dependent consolidation. No pneumothorax is seen. The skeletal structures are osteopenic. The bony thorax is grossly intact. Fusion hardware is seen in the lower cervical spine. IMPRESSION: 1. Cardiomegaly and emphysema with evidence of congestive failure and pulmonary edema. Radiographic follow-up to resolution is recommended. 2. Small pleural effusions with bibasilar consolidation. ACT 112: Negative or not required by law. Electronically signed by: Peewee Smith M.D. 09/06/2025 1:30 PM PG Care Time/CCT Total # of Minutes Spent Total Time Spent with Patient: Total time spent is greater than 50% in coordination of care (as documented) at patient's floor/unit and/or counseling patient: Coding Level of Care Code 97735 SUB INP/OBS CARE 3/50MIN Diagnoses AMS (altered mental status) R41.82 Septic shock A41.9; R65.21 Acute hypoxemic respiratory failure J96.01 Peripheral arterial disease I73.9 LINDSAY (obstructive sleep apnea) G47.33 Cardiomyopathy I42.9 COPD with emphysema J43.9 Thoracic aortic aneurysm (TAA) I71.20 Alcohol use disorder F10.90 Type 2 diabetes mellitus without complication, without long-term current use of insulin E11.9 Diabetes mellitus trace clerk insulin use: without half-way use Diabetes mellitus complication status: without complication Sepsis A41.9 KIM (acute kidney injury) N17.9 History of lobectomy of lung Z90.2 Fusion of spine M43.20 (10) Type 2 diabetes mellitus Diabetes mellitus trace clerk insulin use: without trace clerk use Diabetes mellitus complication status: without complication Qualified Code(s): E11.9 - Type 2 diabetes mellitus without complications
[2025-09-07] MEDS: DEXTROSE 50% 50 ML SYRINGE IV ONE ×2 (00:22→00:26)
[2025-09-07 07:17] LABS: Alanine Aminotransferase 12.0 U/L (7-52); Albumin Globulin Ratio 1.2 (0.9-2); Albumin Level 2.8 gm/dl (3.4-5.0); Alkaline Phosphatase 65.0 U/L (34-104); Anion Gap 8.0 (3-11); Bilirubin,Total 0.8 mg/dl (0.2-1.0); Blood Urea Nitrogen 19.0 mg/dl (6-23); Calcium 7.7 mg/dl (8.6-10.3); Carbon Dioxide 27.0 mmol/L (21-32); Chloride 112.0 mmol/L (98-107); Creatinine Clr Calc Pharmacy 118.0 ml/min; Globulin 2.4 gm/dl (2.5-4.0); Glucose 102.0 mg/dl (70-99(Fasting)); Magnesium 2.2 mg/dl (1.7-2.4); Potassium 3.2 mmol/L (3.5-5.1); Sodium 147.0 mmol/L (136-145); Total Protein 5.2 gm/dl (6.0-8.3)
[2025-09-07 07:19] LABS: Hematocrit (blood only) 38.6 % (42.0-52.0); Hemoglobin 12.9 g/dL (14.0-18.0); Mean Corpuscular Hemoglobin 29.1 pg (25.0-34.0); Mean Corpuscular Volume 86.9 fL (80.0-100.0); Platelet Count 218 K/uL (130-400); RDW Standard Deviation 50.1 fL (36.4-46.3); Red Blood Count 4.44 M/uL (4.70-6.10); White Blood Count 9.17 K/ul (4.8-10.8)
[2025-09-07 07:20] LABS: ALC (manual) 1.01 K/uL (1.2-3.4); ANC (manual) 5.78 K/uL (1.4-6.5); Dohle Bodies 1+; Polychromasia 1+; Toxic Granulation 2+
--- NOTE | 2025-09-07 07:26 | Electrocardiogram Report ---
Test Reason : Blood Pressure : */* mmHG Vent. Rate : 89 BPM Atrial Rate : 89 BPM P-R Int : 248 ms QRS Dur : 108 ms QT Int : 366 ms P-R-T Axes : 59 -79 48 degrees QTcB Int : 445 ms Sinus rhythm with 1st degree A-V block Left axis deviation Pulmonary disease pattern Incomplete right bundle branch block Abnormal ECG When compared with ECG of 20-May-2025 14:46, No significant change was found Confirmed by Carlos Jain ([id number]) on 09/07/2025 7:26:08 AM Referred By: Confirmed By: Carlos Jain
--- NOTE | 2025-09-07 11:09 | Gastroenterology Progress Note ---
Date of Service September 07, 2025 Assessment & Plan (1) Ileus: Plan: Chronic constipation for years. These patients are at risk of Republic's type ileus. Management is to avoid drugs that aggravate bowel function currently this would only be a diltiazem. There are no narcotics or anticholinergics. He does take an anticholinergic at home for bladder. Best avoided. Thyroid studies are normal. Potassium slightly low and should be corrected. Management for Gustavo's is mobility. Patient should be up in chair walking if possible. He said some improvement since yesterday. Less distention frequent bowel movements. Continue to observe. Check KUB tomorrow. (2) C. difficile colitis: Plan: Gene positive toxin negative. Being managed by [facility] at present. (3) Enteropathogenic Escherichia coli infection: Plan: Potential contaminant (4) Acute hypoxemic respiratory failure: Plan: Feeling improved today Admission and Anticipated Discharge Date Admission Date: September 02, 2025 Subjective Ileus Patient with colonic distention stool since admission. Yesterday turn for the worse. Today he is feeling considerably improved. States he is a least 20% better with less abdominal distention and discomfort. He is passing numerous stools per his report. Abdomen is distended but soft not tense or tympanic. Rectal examination shows no hard stool or impaction in the rectum. 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 Some liquid stool. Potassium currently at 3.2. This should be corrected hypokalemia may aggravate ileus. His thyroid test is normal. Review of medications show no narcotics. He does take trospium 60 mg at home. This drug can significantly aggravate ileus currently not receiving. He is also on diltiazem which can be associated with aggravation of GI function he is chronic constipation moving his bowels once to twice per week. You can consider stopping this if possible in regards to his other medical issues. Review of Systems Review of Systems: Feeling improved. Frequent bowel movements. Less short of breath Physical Exam Physical Exam: Patient sleeping arouses to voice. Appears chronically ill. Has visible abdominal distention. The abdomen however is benign. There is distention but he is not tense. Minimal discomfort in the right lower quadrant less so in the left lower quadrant. No guarding rebound or rigidity. Bowel sounds are present. Rectal examination collapsed rectum with liquid stool. No impaction Results & Data Results & Data Vital Signs (Past 12 Hours) Vital Signs Temp Pulse Pulse Resp BP Pulse Ox O2 Del Method 09/07/25 08:41 35.8 C L 79 15 160/87 H 97 BiPAP 09/07/25 07:24 76 14 97 BiPAP 09/07/25 07:24 76 14 97 09/07/25 03:05 36.5 C 76 17 140/85 96 BiPAP 09/07/25 02:36 77 16 96 09/07/25 00:16 83 18 96 BiPAP 09/06/25 23:10 36.9 C 81 18 155/87 H 96 BiPAP 09/06/25 23:10 81 17 97 O2 Flow Rate FiO2 09/07/25 08:41 40 09/07/25 07:24 40 09/07/25 07:24 40 09/07/25 03:05 09/07/25 02:36 50 09/07/25 00:16 50 09/06/25 23:10 09/06/25 23:10 50 PG Care Time/CCT Total # of Minutes Spent Total Time Spent with Patient: Total time spent is greater than 50% in coordination of care (as documented) at patient's floor/unit and/or counseling patient: Coding Level of Care Code 06470 SUB INP/OBS CARE 10/20MIN Diagnoses Ileus K56.7 C. difficile colitis A04.72 Enteropathogenic Escherichia coli infection A04.0 Acute hypoxemic respiratory failure J96.01
[2025-09-07] MEDS ORDERED: GLUCOSE 10 TAB/TUBE PO PRN (12:05)
[2025-09-07] MEDS ORDERED: GLUCOSE 40% GEL 15 GM TUBE PO PRN (12:05)
[2025-09-07] MEDS ORDERED: CARBOHYDRATES FOR HYPOGLYCEMIA PO PRN (12:05)
[2025-09-07] MEDS ORDERED: GLUCAGON FOR INJ 1 MG VIAL SQ PRN (12:05)
[2025-09-07] MEDS ORDERED: DEXTROSE 50% 50 ML SYRINGE IV PRN (12:05)
--- NOTE | 2025-09-07 12:57 | Hospitalist Progress Note ---
Date of Service September 07, 2025 Assessment & Plan (1) AMS (altered mental status): (2) Septic shock: (3) Acute hypoxemic respiratory failure: (4) Peripheral arterial disease: (5) LINDSAY (obstructive sleep apnea): (6) Cardiomyopathy: (7) COPD with emphysema: (8) Thoracic aortic aneurysm (TAA): (9) Alcohol use disorder: (10) Type 2 diabetes mellitus: (11) Sepsis: (12) KIM (acute kidney injury): (13) History of lobectomy of lung: (14) Fusion of spine: Plan #Septic shock #SIRS/sepsis #Altered mental status #Acute Colitis #Possible colonic obstruciton on CT 09/03 - PCR positive for EPEC, cdiff gene positive, toxin negative - repeat KUB no obvious free air - DC cefepime, continue oral vanco - consult ID , rocephin added to cover EPEC - 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 Examination and clinical status stable to maybe slightly improved, advance to clears per gastroenterology #Acute respiratory decompensation - X-ray consistent with volume overload. Lasix initiated. Monitor close intake and output, continue Carias. - BiPAP placed. Patient tolerating relatively well, normalized oxygen. Slightly confused and anxious. Low-dose morphine with good effect. - Discontinue BiPAP, back to his recent baseline of mentation. Will continue to monitor #Volume status -Euvolemia has been quite a challenge given his early yellow GI losses quite significant dehydration but then underlying volume sensitivity given his cardiopulmonary status -2 L given yesterday for markedly dry clinical examination. Starling suggested additional fluid responsiveness. - Clinically still mildly dry on exam dry mucous membranes, prolonged capillary refill. Starling suggested ongoing clinical response to this additional liter given today - See respiratory decompensation as above. Transition to volume overload with the last liter bolus - Diuresed about 2 L after Lasix x 2 yesterday. Think he is euvolemic at this time. Patient reports being very thirsty. Will see how he does with follow-up and clearance #Sinus Tach -See cardiology notes, appreciate cardiology input management, Cardizem PRN for sustained elevations - See volume status discussion as above. Cardiology following. Repeat EKG this morning demonstrated fairly regular rate, done while patient was tachycardic.. May be reasonable to obtain another EKG when the rate is on the slow side to better demonstrate the underlying rhythm - Largely sinus rhythm in the 70s to 90s #Hypermagnesemia - I do not see that he is currently on a supplement, presentation overall would be very consistent with hypomagnesemia syndrome, altered mental status, hypotension, refractory to volume resuscitation. - Still elevated, no exogenous sources, continue to monitor, trending downward #Hypoxemic respiratory failure #COPD/emphysema #Status post right middle lobectomy - Postsurgical findings stable on CT, multifocal pneumonia possible, antibiotics as above, respiratory support with nebulizers, oxygen, RT consultation Advanced airway support-okay with family, including CPAP/BiPAP or intubation if needed -continue respiratory support, stable #Diarrhea #Abdominal pain prior to presentation - EPEC and C. difficile toxin as noted above. GI following, free water enemas today, Rocephin for EPEC - Stool consistency and frequency decreasing. Rectal tube discontinued #KIM - Likely prerenal in the setting of acute illness as above, status post 30 mg/kg, continue to monitor, avoid nephrotoxic substances - slightly elevated, almost back to baseline, fluid as above, daily monitoring #Type 2 diabetes - Hold tirzepatide, sliding scale per ICU protocol on admission - within goal range #Alcohol use disorder history of withdrawl - naltrexone is on his home medication list, will review further with his - In regards to the role alcohol or alcohol withdrawal may be playing in current presentation, could certainly be exacerbating mental status changes - add liver functions and lipase - High risk for withdrawal, AWSS screen orders placed - reviewed with his , minimal to no use, reports one glass of wine last week, [facility] sobriety #Altered mental status - Likely mixed etiology, toxic/infectious as above, metabolic in regards to possible alcohol withdrawal/hypermagnesemia. Continue to monitor closely with AWSS - Interval decline with respiratory difficulties, back to his recent baseline this morning #Hypertension -Hold antihypertensives in the setting of shock as above #recurrent migraine - Hold topiramate #Thoracic aortic aneurysm -No evidence of acute pathology on CT, continue to monitor #FEN NPO initally CODE STATUS - Full code in discussion with his . She states he would not want anything prolonged if the prognosis was grim Admission and Anticipated Discharge Date Admission Date: September 02, 2025 Subjective Was able to stay on the BiPAP overnight. He did require a dose or 2 of Dilaudid mostly for BiPAP compliance but overall just discomfort. He has done well through the night. Tolerating BiPAP. Active evening with no issues or concerns. Lungs sound much better today. He seems to be back to his recent baseline.. Request that the BiPAP be discontinued. No other new complaints or concerns. Physical Exam Physical Exam: Constitutional: Alert, cooperative, BiPAP mask in place HEENT: Unremarkable, on oxygen Neck: No jugular venous distention, carotid pulses are rapid but normal and equal bilaterally without bruits. Pulmonary: No expiratory phase phase wheezing, fine crackles in lateral exam bilaterally, overall improvement in air exchange and decreasing crackles Cardiac: Regular rapid rhythm with no murmur, gallop or rub. Abdomen: Minimal tenderness, interval improvement in distention Extremities: No edema. Neurologic: No focal findings, moves all extremities Skin: No rash, ecchymoses or petechiae. Results & Data Results & Data Vital Signs (Past 12 Hours) Vital Signs Temp Pulse Pulse Resp BP Pulse Ox O2 Del Method 09/07/25 12:30 167/96 H 09/07/25 11:59 36.7 C 86 20 175/103 H 94 Nasal Cannula 09/07/25 11:20 Nasal Cannula 09/07/25 11:15 81 15 94 Nasal Cannula 09/07/25 08:41 35.8 C L 79 15 160/87 H 97 BiPAP 09/07/25 08:00 77 09/07/25 07:24 76 14 97 BiPAP 09/07/25 07:24 76 14 97 09/07/25 03:05 36.5 C 76 17 140/85 96 BiPAP 09/07/25 02:36 77 16 96 O2 Flow Rate FiO2 09/07/25 12:30 09/07/25 11:59 5.0 09/07/25 11:20 4 09/07/25 11:15 5 09/07/25 08:41 40 09/07/25 08:00 09/07/25 07:24 40 09/07/25 07:24 40 09/07/25 03:05 09/07/25 02:36 50 Laboratory Results 09/02/25 10:19 Aerobic Blood Culture - Final Blood No growth in Aerobic bottle after 5 days. Anaerobic Blood Culture - Final 09/02/25 10:19 Aerobic Blood Culture - Final Blood No growth in Aerobic bottle after 5 days. Anaerobic Blood Culture - Final 09/07/25 09/07/25 09/07/25 11:45 06:28 05:36 WBC 9.17 RBC 4.44 L Hgb 12.9 L POC Hgb Hct 38.6 L POC Hct MCV 86.9 MCH 29.1 MCHC 33.4 RDW Std Deviation 50.1 H RDW Coeff of Roni 15.8 H Plt Count 218 MPV 11.0 Neutrophils % (Manual) 63 Lymphocytes % (Manual) 7 Monocytes % (Manual) 24 Eosinophils % (Manual) 2 Plasma Cell % (Manual) 4 Neutrophils # (Manual) 5.78 Total Absolute Neuts 5.78 Lymphocytes # (Manual) 0.64 L Total Abs Lymphocytes 1.01 L Monocytes # (Manual) 2.20 H Eosinophils # (Manual) 0.18 Plasma Cell # (Manual) 0.37 H Toxic Granulation 2+ Dohle Bodies 1+ Polychromasia 1+ Echinocytes 1+ Specimen Type Sample Site POC pH POC pCO2 POC pO2 POC HCO3 POC Total CO2 POC Base Excess O2 Sat Pulse Oximetry ABG pH (Temp Correct) ABG pCO2 (Temp Corrct POC ABG pO2 at Pt Temp POC ABG O2 Sat [place] Test O2 Delivery Device POC Sodium Sodium 147 H POC Potassium Potassium 3.2 L Chloride 112 H Carbon Dioxide 27 Anion Gap 8 BUN 19 Creatinine 0.59 L Est Cr Clr Drug Dosing 118.0 eGFR 99.31 BUN/Creatinine Ratio 32.2 H Glucose 102 H POC Glucose 86 109 H Calcium 7.7 L Magnesium 2.2 Total Bilirubin 0.8 AST 19 ALT 12 Alkaline Phosphatase 65 C-Reactive Protein 7.66 H Total Protein 5.2 L Albumin 2.8 L Globulin 2.4 L Albumin/Globulin Ratio 1.2 09/07/25 09/07/25 09/06/25 00:39 00:16 18:15 WBC RBC Hgb POC Hgb Hct POC Hct MCV MCH MCHC RDW Std Deviation RDW Coeff of Roni Plt Count MPV Neutrophils % (Manual) Lymphocytes % (Manual) Monocytes % (Manual) Eosinophils % (Manual) Plasma Cell % (Manual) Neutrophils # (Manual) Total Absolute Neuts Lymphocytes # (Manual) Total Abs Lymphocytes Monocytes # (Manual) Eosinophils # (Manual) Plasma Cell # (Manual) Toxic Granulation Dohle Bodies Polychromasia Echinocytes Specimen Type Sample Site POC pH POC pCO2 POC pO2 POC HCO3 POC Total CO2 POC Base Excess O2 Sat Pulse Oximetry ABG pH (Temp Correct) ABG pCO2 (Temp Corrct POC ABG pO2 at Pt Temp POC ABG O2 Sat [place] Test O2 Delivery Device POC Sodium Sodium POC Potassium Potassium Chloride Carbon Dioxide Anion Gap BUN Creatinine Est Cr Clr Drug Dosing eGFR BUN/Creatinine Ratio Glucose POC Glucose 153 H 66 L* 80 Calcium Magnesium Total Bilirubin AST ALT Alkaline Phosphatase C-Reactive Protein Total Protein Albumin Globulin Albumin/Globulin Ratio 09/06/25 13:29 WBC RBC Hgb POC Hgb 12.6 L Hct POC Hct 37 L MCV MCH MCHC RDW Std Deviation RDW Coeff of Roni Plt Count MPV Neutrophils % (Manual) Lymphocytes % (Manual) Monocytes % (Manual) Eosinophils % (Manual) Plasma Cell % (Manual) Neutrophils # (Manual) Total Absolute Neuts Lymphocytes # (Manual) Total Abs Lymphocytes Monocytes # (Manual) Eosinophils # (Manual) Plasma Cell # (Manual) Toxic Granulation Dohle Bodies Polychromasia Echinocytes Specimen Type Arterial Sample Site R Radial POC pH 7.32 L POC pCO2 47 H POC pO2 61 L POC HCO3 24 POC Total CO2 25 POC Base Excess -2.0 O2 Sat Pulse Oximetry 93 ABG pH (Temp Correct) 7.319 L ABG pCO2 (Temp Corrct 46 POC ABG pO2 at Pt Temp 60 POC ABG O2 Sat 89.0 L [place] Test Pass O2 Delivery Device Cannula POC Sodium 146 H Sodium POC Potassium 3.4 Potassium Chloride Carbon Dioxide Anion Gap BUN Creatinine Est Cr Clr Drug Dosing eGFR BUN/Creatinine Ratio Glucose POC Glucose Calcium Magnesium Total Bilirubin AST ALT Alkaline Phosphatase C-Reactive Protein Total Protein Albumin Globulin Albumin/Globulin Ratio Diagnostic Findings Chest X-Ray 09/06/25 13:01 SINGLE VIEW CHEST CLINICAL HISTORY: Dyspnea FINDINGS: An AP, portable, upright chest radiograph is compared to chest x-ray and chest CT dated 09/02/2025. The heart is enlarged. There is pulmonary vascular congestion with interstitial edema. Emphysema and chronic interstitial thickening is similar to previous. There are small pleural effusions with dependent consolidation. No pneumothorax is seen. The skeletal structures are osteopenic. The bony thorax is grossly intact. Fusion hardware is seen in the lower cervical spine. IMPRESSION: 1. Cardiomegaly and emphysema with evidence of congestive failure and pulmonary edema. Radiographic follow-up to resolution is recommended. 2. Small pleural effusions with bibasilar consolidation. ACT 112: Negative or not required by law. Electronically signed by: Peewee Smith M.D. 09/06/2025 1:30 PM PG Care Time/CCT Total # of Minutes Spent Total Time Spent with Patient: Total time spent is greater than 50% in coordination of care (as documented) at patient's floor/unit and/or counseling patient: Coding Level of Care Code 26598 SUB INP/OBS CARE 2/35MIN Diagnoses AMS (altered mental status) R41.82 Septic shock A41.9; R65.21 Acute hypoxemic respiratory failure J96.01 Peripheral arterial disease I73.9 LINDSAY (obstructive sleep apnea) G47.33 Cardiomyopathy I42.9 COPD with emphysema J43.9 Thoracic aortic aneurysm (TAA) I71.20 Alcohol use disorder F10.90 Type 2 diabetes mellitus without complication, without long-term current use of insulin E11.9 Diabetes mellitus [facility] insulin use: without rn long term care use Diabetes mellitus complication status: without complication Sepsis A41.9 KIM (acute kidney injury) N17.9 History of lobectomy of lung Z90.2 Fusion of spine M43.20 (10) Type 2 diabetes mellitus Diabetes mellitus rn long term care insulin use: without rn long term care use Diabetes mellitus complication status: without complication Qualified Code(s): E11.9 - Type 2 diabetes mellitus without complications
[2025-09-07] MEDS: INSULIN ASPART PER UNIT CHARGE SC SCH (17:18)
[2025-09-08 06:14] LABS: Hematocrit (blood only) 37.6 % (42.0-52.0); Hemoglobin 13.0 g/dL (14.0-18.0); Mean Corpuscular Hemoglobin 29.4 pg (25.0-34.0); Mean Corpuscular Volume 85.1 fL (80.0-100.0); Platelet Count 216 K/uL (130-400); RDW Standard Deviation 46.8 fL (36.4-46.3); Red Blood Count 4.42 M/uL (4.70-6.10); White Blood Count 9.97 K/ul (4.8-10.8)
[2025-09-08 06:43] LABS: Anion Gap 7.0 (3-11); Blood Urea Nitrogen 13.0 mg/dl (6-23); Calcium 7.6 mg/dl (8.6-10.3); Carbon Dioxide 30.0 mmol/L (21-32); Chloride 106.0 mmol/L (98-107); Creatinine Clr Calc Pharmacy 143.0 ml/min; Potassium 2.9 mmol/L (3.5-5.1); Sodium 143.0 mmol/L (136-145)
[2025-09-08 06:45] LABS: Magnesium 1.9 mg/dl (1.7-2.4)
[2025-09-08] MEDS ORDERED: POTASSIUM PHOS 3 MMOL/1 ML INFUSION IV STA (06:47)
[2025-09-08 07:04] LABS: Immature Granulocytes # (auto) 0.11 K/uL (0.01-0.20); Immature Granulocytes % (auto) 1.1 %; Toxic Granulation 1+
[2025-09-08] MEDS: POTASSIUM PHOSPHATE 15 MMOL in SODIUM CHLORIDE 0.9% 250 ML IV ONE (08:16)
--- NOTE | 2025-09-08 09:10 | Communication Note ---
Date of Service: September 08, 2025 Awaiting KUB. Potassium now 2.9. Also note low phosphorus at 1.5. Both can be associated with increased ileus. Hospitalist service to correct. Will review KUB when available.
--- NOTE | 2025-09-08 10:08 | XRay Report ---
HISTORY: Ileus TECHNIQUE: Supine AP abdominal radiographs, 3 views. COMPARISON: Abdominal radiographs dated 09/06/2025. FINDINGS: Mildly dilated gas-filled loops of small bowel throughout the abdomen measuring up to 4 cm in diameter. Gas and moderate volume of stool in the colon. No obvious free air or pneumatosis. No significant interval change since the prior study. Surgical clips overlying the pelvis. Lung bases are clear. No acute osseous abnormality. IMPRESSION: * No significant interval change. * Gaseous distention of the bowel with persistent mild small bowel dilation measuring up to 4 cm in diameter. This is favored to represent ileus, but distal small bowel obstruction could have a similar appearance and cannot be excluded. * Moderate formed stool in the colon. Electronically signed by Jesus Rivas 09-08-2025 10:08 AM
[2025-09-08] MEDS: POTASSIUM CHLORIDE / WTR 10 MEQ/100 ML PLCT IV SCH (11:07)
--- NOTE | 2025-09-08 11:17 | Hospitalist Progress Note ---
Date of Service September 08, 2025 Assessment & Plan (1) AMS (altered mental status): (2) Septic shock: (3) Acute hypoxemic respiratory failure: (4) Peripheral arterial disease: (5) LINDSAY (obstructive sleep apnea): (6) Cardiomyopathy: (7) COPD with emphysema: (8) Thoracic aortic aneurysm (TAA): (9) Alcohol use disorder: (10) Type 2 diabetes mellitus: (11) Sepsis: (12) KIM (acute kidney injury): (13) History of lobectomy of lung: (14) Fusion of spine: Plan #Septic shock #SIRS/sepsis #Altered mental status #Acute Colitis #Possible colonic obstruciton on CT 09/03 - PCR positive for EPEC, cdiff gene positive, toxin negative - repeat KUB no obvious free air - DC cefepime, continue oral vanco - consult ID , rocephin added to cover EPEC - 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 Examination and clinical status has been qquite variable, worse today, minimal tolerance of clears, appreciate gastroenterology mgmt - Consent for PICC for TPN #Acute respiratory decompensation - X-ray consistent with volume overload. Lasix initiated. Monitor close intake and output, continue Carias. - BiPAP placed. Patient tolerating relatively well, normalized oxygen. Slightly confused and anxious. Low-dose morphine with good effect. - Stable, improve, continue Bipap PRN #Nutritional Status #Hypokalemia - PICC this AM, pharmacy for TPN as bowel rest likely to continue, slow and highly variable recovery thus far. 3 each IV K+ Bumps today -monitor for refeeding although rish relatively low. #Volume status -Euvolemia has been quite a challenge given his early yellow GI losses quite significant dehydration but then underlying volume sensitivity given his cardiopulmonary status -2 L given yesterday for markedly dry clinical examination. Starling suggested additional fluid responsiveness. - Clinically still mildly dry on exam dry mucous membranes, prolonged capillary refill. Starling suggested ongoing clinical response to this additional liter given today - See respiratory decompensation as above. Transition to volume overload with the last liter bolus - Euvolemic to dry, continue IVF until TPN starts #Sinus Tach -See cardiology notes, appreciate cardiology input management, Cardizem PRN for sustained elevations - See volume status discussion as above. Cardiology following. Repeat EKG this morning demonstrated fairly regular rate, done while patient was tachycardic.. May be reasonable to obtain another EKG when the rate is on the slow side to better demonstrate the underlying rhythm - Largely sinus rhythm in the 70s to 90s, scattered short PAT runs are self limited #Hypermagnesemia - I do not see that he is currently on a supplement, presentation overall would be very consistent with hypomagnesemia syndrome, altered mental status, hypotension, refractory to volume resuscitation. - Still elevated, no exogenous sources, continue to monitor, trending downward #Hypoxemic respiratory failure #COPD/emphysema #Status post right middle lobectomy - Postsurgical findings stable on CT, multifocal pneumonia possible, antibiotics as above, respiratory support with nebulizers, oxygen, RT consultation Advanced airway support-okay with family, including CPAP/BiPAP or intubation if needed -continue respiratory support, stable #Diarrhea #Abdominal pain prior to presentation - EPEC and C. difficile toxin as noted above. GI following, free water enemas today, Rocephin for EPEC - Stool consistency and frequency decreasing. Rectal tube discontinued #KIM - Likely prerenal in the setting of acute illness as above, status post 30 mg/kg, continue to monitor, avoid nephrotoxic substances - slightly elevated, almost back to baseline, fluid as above, daily monitoring #Type 2 diabetes - Hold tirzepatide, sliding scale per ICU protocol on admission - within goal range #Alcohol use disorder history of withdrawl - naltrexone is on his home medication list, will review further with his - In regards to the role alcohol or alcohol withdrawal may be playing in current presentation, could certainly be exacerbating mental status changes - add liver functions and lipase - High risk for withdrawal, AWSS screen orders placed - reviewed with his , minimal to no use, reports one glass of wine last week, nursing home sobriety #Altered mental status - Likely mixed etiology, toxic/infectious as above, metabolic in regards to possible alcohol withdrawal/hypermagnesemia. Continue to monitor closely with AWSS - Interval decline with respiratory difficulties, back to his recent baseline this morning #Hypertension -Hold antihypertensives in the setting of shock as above #recurrent migraine - Hold topiramate #Thoracic aortic aneurysm -No evidence of acute pathology on CT, continue to monitor #FEN NPO initally CODE STATUS - Full code in discussion with his . She states he would not want anything prolonged if the prognosis was grim Admission and Anticipated Discharge Date Admission Date: September 02, 2025 Subjective Doing a bit better this morning from a breathing standpoint. He has been using the BiPAP at night and thinks that has been helpful. He tolerated it much better last night the prior night. Mentally he is much more clear today than he has been really at any point since this hospitalization started. He is somewhat frustrated with the slow progress. Has tried to take clear but only very limited amounts. Increased gastric distention and discomfort this morning. No nausea or vomiting. Limited output from below. Consent for PICC line discussed with patient today in regards to nutritional status. He is day 6 without any significant oral nutrition. No clear timeframe for recovery although hopefully he turns the corner. Multiple electrolyte abnormalities. Will start PPN/TPN Physical Exam Physical Exam: Constitutional: Alert, cooperative, BiPAP mask in place HEENT: Unremarkable, on oxygen Neck: No jugular venous distention, carotid pulses are rapid but normal and equal bilaterally without bruits. Pulmonary: No expiratory phase phase wheezing, fine crackles in lateral exam bilaterally, overall improvement in air exchange and decreasing crackles Cardiac: Regular rapid rhythm with no murmur, gallop or rub. Abdomen: Minimal tenderness, interval progression in distention compared to even 2 days ago. Was slightly better yesterday. Tympanic throughout. Tenderness is diffuse. No guarding or rebound Extremities: No edema. Neurologic: No focal findings, moves all extremities Skin: No rash, ecchymoses or petechiae. Results & Data Results & Data Vital Signs (Past 12 Hours) Vital Signs Temp Pulse Pulse Resp BP Pulse Ox O2 Del Method 09/08/25 08:17 Nasal Cannula 09/08/25 07:38 76 09/08/25 07:28 36.7 C 76 18 166/94 H 97 Nasal Cannula 09/08/25 07:24 73 17 95 Nasal Cannula 09/08/25 04:20 94 Nasal Cannula 09/08/25 02:08 73 18 95 09/08/25 01:46 70 18 95 09/07/25 23:56 158/92 H O2 Flow Rate FiO2 09/08/25 08:17 2 09/08/25 07:38 09/08/25 07:28 5.0 09/08/25 07:24 4 09/08/25 04:20 4 09/08/25 02:08 40 09/08/25 01:46 40 09/07/25 23:56 Laboratory Results 09/02/25 10:19 Aerobic Blood Culture - Final Blood No growth in Aerobic bottle after 5 days. Anaerobic Blood Culture - Final No growth in Anaerobic bottle after 5 days. 09/02/25 10:19 Aerobic Blood Culture - Final Blood No growth in Aerobic bottle after 5 days. Anaerobic Blood Culture - Final No growth in Anaerobic bottle after 5 days. 09/08/25 09/08/25 09/08/25 11:07 07:26 05:37 WBC 9.97 RBC 4.42 L Hgb 13.0 L Hct 37.6 L MCV 85.1 MCH 29.4 MCHC 34.6 RDW Std Deviation 46.8 H RDW Coeff of Roni 15.0 H Plt Count 216 MPV 10.4 Immature Gran % (Auto) 1.1 Neut % (Auto) 68.0 Lymph % (Auto) 14.4 [place] % (Auto) 11.8 Eos % (Auto) 4.2 Baso % (Auto) 0.5 Neut # (Auto) 6.77 H Lymph # (Auto) 1.44 [place] # (Auto) 1.18 H Eos # (Auto) 0.42 Baso # (Auto) 0.05 Immature Gran # (Auto) 0.11 Toxic Granulation 1+ Sodium 143 Potassium 2.9 L Chloride 106 Carbon Dioxide 30 Anion Gap 7 BUN 13 Creatinine 0.48 L Est Cr Clr Drug Dosing 143.0 eGFR 105.70 POC Glucose 179 H 124 H Fasting Glucose 142 H Calcium 7.6 L Phosphorus 1.5 L* Magnesium 1.9 09/07/25 09/07/25 09/07/25 21:08 16:04 11:45 WBC RBC Hgb Hct MCV MCH MCHC RDW Std Deviation RDW Coeff of Roni Plt Count MPV Immature Gran % (Auto) Neut % (Auto) Lymph % (Auto) [place] % (Auto) Eos % (Auto) Baso % (Auto) Neut # (Auto) Lymph # (Auto) [place] # (Auto) Eos # (Auto) Baso # (Auto) Immature Gran # (Auto) Toxic Granulation Sodium Potassium Chloride Carbon Dioxide Anion Gap BUN Creatinine Est Cr Clr Drug Dosing eGFR POC Glucose 155 H 143 H 86 Fasting Glucose Calcium Phosphorus Magnesium Diagnostic Findings KUB X-Ray 09/08/25 07:09 HISTORY: Ileus TECHNIQUE: Supine AP abdominal radiographs, 3 views. COMPARISON: Abdominal radiographs dated 09/06/2025. FINDINGS: Mildly dilated gas-filled loops of small bowel throughout the abdomen measuring up to 4 cm in diameter. Gas and moderate volume of stool in the colon. No obvious free air or pneumatosis. No significant interval change since the prior study. Surgical clips overlying the pelvis. Lung bases are clear. No acute osseous abnormality. IMPRESSION: * No significant interval change. * Gaseous distention of the bowel with persistent mild small bowel dilation measuring up to 4 cm in diameter. This is favored to represent ileus, but distal small bowel obstruction could have a similar appearance and cannot be excluded. * Moderate formed stool in the colon. Electronically signed by Jesus Rivas 09-08-2025 10:08 AM PG Care Time/CCT Total # of Minutes Spent Total Time Spent with Patient: Total time spent is greater than 50% in coordination of care (as documented) at patient's floor/unit and/or counseling patient: Coding Level of Care Code 01662 SUB INP/OBS CARE 2/35MIN Diagnoses AMS (altered mental status) R41.82 Septic shock A41.9; R65.21 Acute hypoxemic respiratory failure J96.01 Peripheral arterial disease I73.9 LINDSAY (obstructive sleep apnea) G47.33 Cardiomyopathy I42.9 COPD with emphysema J43.9 Thoracic aortic aneurysm (TAA) I71.20 Alcohol use disorder F10.90 Type 2 diabetes mellitus without complication, without long-term current use of insulin E11.9 Diabetes mellitus supervisor intermediates insulin use: without nursing home use Diabetes mellitus complication status: without complication Sepsis A41.9 KIM (acute kidney injury) N17.9 History of lobectomy of lung Z90.2 Fusion of spine M43.20 (10) Type 2 diabetes mellitus Diabetes mellitus nursing home insulin use: without supervisor intermediates use Diabetes mellitus complication status: without complication Qualified Code(s): E11.9 - Type 2 diabetes mellitus without complications
[2025-09-08] MEDS ORDERED: TPN/PPN CONSULT PHARMACY PRN (11:29)
[2025-09-08] MEDS ORDERED: DEXTROSE 10% 1,000 ML IV PRN (12:24)
--- NOTE | 2025-09-08 12:31 | Gastroenterology Progress Note ---
Date of Service September 08, 2025 Assessment & Plan (1) Ileus: Plan: Continue current treatment. Correction of electrolyte abnormalities. Ambulate as tolerated. Admission and Anticipated Discharge Date Admission Date: September 02, 2025 Subjective Ileus Patient still having frequent bowel movements. He reports continued improvement in his abdominal symptoms. Yesterday he reported about 15% improvement today feels he is 30%. P.o. intake still remains poor. Patient getting a PICC line. He has potassium and phosphate deficiency. These may aggravate ileus. Being corrected by the primary service. Can try to advance diet to full fluids. He does not feel is he can eat too too much as he says it aggravates his breathing. KUB shows continued ileus though maximal diameter now reported at [address] scan it had been 7 cm. Review of Systems Review of Systems: Decreasing abdominal pain Physical Exam Physical Exam: About the same as yesterday. Patient sitting up in bed having clear liquids. Abdominal examination unchanged. Results & Data Results & Data Vital Signs (Past 12 Hours) Vital Signs Temp Pulse Pulse Resp BP Pulse Ox O2 Del Method 09/08/25 11:13 36.8 C 74 18 161/89 H 93 Nasal Cannula 09/08/25 08:17 Nasal Cannula 09/08/25 07:38 76 09/08/25 07:28 36.7 C 76 18 166/94 H 97 Nasal Cannula 09/08/25 07:24 73 17 95 Nasal Cannula 09/08/25 04:20 94 Nasal Cannula 09/08/25 02:08 73 18 95 09/08/25 01:46 70 18 95 O2 Flow Rate FiO2 09/08/25 11:13 2.0 09/08/25 08:17 2 09/08/25 07:38 09/08/25 07:28 5.0 09/08/25 07:24 4 09/08/25 04:20 4 09/08/25 02:08 40 09/08/25 01:46 40 PG Care Time/CCT Total # of Minutes Spent Total Time Spent with Patient: Total time spent is greater than 50% in coordination of care (as documented) at patient's floor/unit and/or counseling patient: Coding Level of Care Code 43753 SUB INP/OBS CARE 10/20MIN Diagnoses Ileus K56.7
[2025-09-08 13:22] LABS: Anion Gap 5.0 (3-11); Blood Urea Nitrogen 11.0 mg/dl (6-23); Calcium 7.4 mg/dl (8.6-10.3); Carbon Dioxide 29.0 mmol/L (21-32); Chloride 105.0 mmol/L (98-107); Creatinine Clr Calc Pharmacy 140.0 ml/min; Glucose 191.0 mg/dl (70-99(Fasting)); Potassium 3.3 mmol/L (3.5-5.1); Sodium 139.0 mmol/L (136-145)
--- NOTE | 2025-09-08 14:13 | Pharmacy Report ---
Pharmacy Initial PN Consult Nt - Date of Service September 08, 2025 - Scope Pharmacy has been consulted on this date to manage parenteral nutrition orders and order appropriate labs. As part of the Nutrition Support Team Guidelines, pharmacy will work in conjunction with dietary when determining the patients caloric needs. - Subjective * The patient is a 79 year old Male admitted on 09/02/25 for VOLUME REFRACTORY SHOCK. 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 Increased gastric distention and discomfort with ~6 days without significant oral intake. - Objective Vascular Access: * Patient currently has a PICC line (inserted 09/08) Height & Weight (Last Documented) Height 5 ft 10 in Weight 89.721 kg Diet Order(s) 09/07/25 Lunch Diet Intake & Ouput (24hrs) 09/07/25 09/08/25 09/09/25 06:59 06:59 06:59 Intake Total 1235 / 1235 1300 / 1300 1096.667 / 1096.667 Output Total 2952 / 2952 3030 / 3030 1354 / 1354 Balance -1717 / -1717 -1730 / -1730 -257.333 / -257.333 Selected Laboratory Results 09/08/25 09/08/25 05:37 12:50 Sodium 143 139 Potassium 2.9 L 3.3 L Chloride 106 105 Carbon Dioxide 30 29 Anion Gap 7 5 BUN 13 11 Creatinine 0.48 L 0.49 L BUN/Creatinine Ratio 22.4 H Glucose 191 H Calcium 7.6 L 7.4 L Phosphorus 1.5 L* 1.[address] - Follow Up Nutrition Assessment Start: 09/02/25 16:03 Freq: Status: Active Protocol: Document 09/08/25 11:57 ALR (Rec: 09/08/25 12:07 ALR [id number]) RD - Initial Nutrition Assessment Start: 09/02/25 15:55 Freq: Status: Active Protocol: Document 09/02/25 15:55 WN (Rec: 09/02/25 16:03 WN [id number]) - Assessment & Plan Assessment: * Appreciate dietitians recommendations for macronutrients. 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 Electrolytes repleted and to be rechecked prior to start PN this afternoon. Plan: * For Day #1 of PPN administration, the following will be ordered: * Macronutrients: * Amino Acids: 42.5 grams/day * Dextrose: 50 grams/day * Lipids: 0 grams/day * Micronutrients: * TPN electrolytes: 0 mL/day - Contains 35 mEq Na, 20 mEq K, 4.5 mEq Ca, 5 mEq Mg, 35 mEq Cl, 29.5 mEq Acetate per 20 mL * Sodium phosphate: 0 mMol/day * Sodium chloride: 65 mEq/day * Sodium acetate: 10 mEq/day * Potassium phosphate: 21 mMol/day * Potassium chloride: 0 mEq/day * Potassium acetate: 35 mEq/day * Magnesium sulfate: 8.12 mEq/day * Calcium gluconate: 4.65 mEq/day * Multivitamins: 10 mL/day * Trace elements: 1 mL/day * Thiamine: 100 mg/day * Folic Acid: 0 mg/day * Total volume of 1080 mL will be infused over 24 hours and will provide 340 kcal/day * Labs will be ordered per PN protocol. * Pharmacy will follow and adjust PN orders on a daily basis. Thank you!
[2025-09-08] MEDS ORDERED: SODIUM PHOSPHATE 3 MMOL/1 ML INFUSION IV STA (14:42)
[2025-09-08] MEDS: POTASSIUM CHLORIDE / WTR 10 MEQ/100 ML PLCT IV ONE (15:07)
[2025-09-08 16:25] LABS: Albumin Level 2.5 gm/dl (3.4-5.0); Anion Gap 6.0 (3-11); Blood Urea Nitrogen 10.0 mg/dl (6-23); Calcium 7.5 mg/dl (8.6-10.3); Carbon Dioxide 29.0 mmol/L (21-32); Chloride 106.0 mmol/L (98-107); Creatinine Clr Calc Pharmacy 152.5 ml/min; Glucose 141.0 mg/dl (70-99(Fasting)); Potassium 3.3 mmol/L (3.5-5.1); Sodium 141.0 mmol/L (136-145)
[2025-09-08] MEDS: SODIUM PHOSPHATE 21 MMOL in SODIUM CHLORIDE 0.9% 500 ML IV ONE (17:02)
[2025-09-09 04:47] LABS: Hematocrit (blood only) 38.5 % (42.0-52.0); Hemoglobin 13.1 g/dL (14.0-18.0); Immature Granulocytes # (auto) 0.12 K/uL (0.01-0.20); Immature Granulocytes % (auto) 0.9 %; Mean Corpuscular Hemoglobin 28.9 pg (25.0-34.0); Mean Corpuscular Volume 84.8 fL (80.0-100.0); Platelet Count 240 K/uL (130-400); RDW Standard Deviation 46.2 fL (36.4-46.3); Red Blood Count 4.54 M/uL (4.70-6.10); White Blood Count 13.13 K/ul (4.8-10.8)
[2025-09-09 05:04] LABS: Alanine Aminotransferase 16.0 U/L (7-52); Albumin Level 2.7 gm/dl (3.4-5.0); Alkaline Phosphatase 74.0 U/L (34-104); Anion Gap 5.0 (3-11); Bilirubin,Total 0.7 mg/dl (0.2-1.0); Blood Urea Nitrogen 8.0 mg/dl (6-23); Calcium 7.6 mg/dl (8.6-10.3); Carbon Dioxide 29.0 mmol/L (21-32); Chloride 105.0 mmol/L (98-107); Creatinine Clr Calc Pharmacy 152.5 ml/min; Glucose 140.0 mg/dl (70-99(Fasting)); Magnesium 1.7 mg/dl (1.7-2.4); Potassium 3.2 mmol/L (3.5-5.1); Sodium 139.0 mmol/L (136-145); Total Protein 5.5 gm/dl (6.0-8.3); Triglycerides 123.0 mg/dl (0-150)
[2025-09-09] MEDS: MAGNESIUM SULFATE / D5W 1 GM/100 ML BAG IV SCH (08:50)
[2025-09-09] MEDS: POT PHOSPHATE MONOBASIC W/ SOD TAB PO SCH (08:50)
[2025-09-09] MEDS: POTASSIUM CHLORIDE CRTAB 20 MEQ TABCR PO STA ×3 (08:50→19:29)
--- NOTE | 2025-09-09 10:52 | Gastroenterology Progress Note ---
Date of Service September 09, 2025 Assessment & Plan (1) Ileus: Plan: Recommend continuation of current treatment with supportive care. Continue with correction of electrolyte abnormalities. Ambulate as tolerated. -Further recommendations to come with Supervising GI provider on medical rounds. Please see co-signature comments. Admission and Anticipated Discharge Date Admission Date: September 02, 2025 Supervising Physician Co-Signing Physician Notes Potassium up to 3.2 phosphorus corrected. Tolerating p.o. Abdomen feels softer than previous exams. Long-term management will be mobility, avoiding anticholinergics. Specifically baclofen in this gentleman. Can have MiraLAX daily. Subjective Patient with some decreased mentation this morning. Discussed with nursing, he has been having continuous incontinent loose stools. Yesterday he had them frequently throughout the day shift and overnight. So far this morning he has had 2 very loose bowel movements. He is passing a lot of gas as well. Poor appetite but he did eat a little over half of what was on his tray this morning but overall he has a poor appetite. he does report some cramping. 09/09/25 wbc 13.13, hgb 13.1, hct 38.5, plts 240, Na 139, K 3.2, BUN 8, Cr 0.45, phosphorus 2.3, Review of Systems Review of Systems: Unobtainable due to cognitive status Physical Exam Physical Exam: Abdomen protuberant. Softer than previous exam. Patient eating at the bedside. Gastrointestinal (Abdomen): distended, soft, bowel sounds present. Results & Data Results & Data Vital Signs (Past 12 Hours) Vital Signs Temp Pulse Resp BP Pulse Ox O2 Del Method O2 Flow Rate 09/09/25 10:48 97.3 F L 83 23 171/100 H 95 Nasal Cannula 2 09/09/25 07:28 84 18 95 Nasal Cannula 2 09/09/25 07:07 98.2 F 84 24 171/100 H 95 Nasal Cannula 2 09/09/25 03:44 98.8 F 111 H 20 165/109 H 95 Nasal Cannula 2 09/09/25 01:51 80 19 95 Nasal Cannula 2 Coding Level of Care Code 01001 SUB INP/OBS CARE 2/35MIN Diagnoses Ileus K56.7
--- NOTE | 2025-09-09 12:40 | Hospitalist Progress Note ---
Date of Service September 09, 2025 Assessment & Plan (1) Acute hypoxemic respiratory failure: (2) Acute metabolic encephalopathy: (3) Ileus: (4) Enteropathogenic Escherichia coli infection: Plan This pt is a 79 yo male with a h/o chronic HFpEF, HTN, HLD, TAA, peripheral neuropathy, DMII, COPD, GERD, previous AUD now on naltrexone, chronic pain, migraines, LINDSAY on CPAP, urinary incontinence, prostate CA s/p prostatectomy, here with septic and hypovolemic shock from severe E. coli and C. diff induced colitis as well as an ileus and acute metabolic encephalopathy. #Septic shock/Acute Colitis/Cook's/Ileus- With significant diarrhea, PCR positive for EPEC, cdiff gene positive, toxin negative but treating empirically regardless. Initially required ICU for Levophed, then quickly weaned off. CT with colitis and dilated colon now improved on subsequent KUB. Finished a 3 day course of IV ceftriaxone for EPEC as per ID recommendation. With ongoing loose stools and abd distension. Appreciate GI consultation -continue oral vanco high dose 500mg po qid x 10 day course -continue IV Flagyl -avoid meds that can cause ileus-dc home baclofen, trospium, ?Mounjaro -WBC count up slightly on 09/09 for unclear reason but afebrile-follow CBC, Procal in AM -Continue TPN through PICC until tolerating a diet-adv diet to full liquids #Acute respiratory failure w/ hypoxemia/Acute on chronic HFpEF/LINDSAY/COPD-Had resp distress and required BiPAP, was hypoxemic-likely dye to acute on chronic HFpEF. Chest X-ray consistent with volume overload. Lasix initiated x 2 doses and had improvement. BPs remain elevated, still requiring 2LNC O2 and has dyspnea at rest -strict I/Os, daily weights, low sodium diet -dc Carias -resume home bumex -continue CPAP hs -continue albuterol nebs, resume home maintenance inhaler (Stiolto) and resume home Singulair and Claritin #Hypokalemia/Hypophosphatemia/Hypomagnesemia-all low from GI losses, poor po intake -follow BMP, Mag, Phos, and Procal in AM -replete lytes-give 100meq po KCl and 2 tabs neutraphos qid x 4 doses, 2 grams IV mag today #Paroxysmal atrial tachycardia-having intermittent periods of A-tach on tele, asymptomatic, Noncompliance with CPAP and lyte abnormalities contributing. Broke with adenosine with Cardiology present. Appreciate Cardio consult -consider EP study as outpt -started diltiazem--> increase dose to 90mg po tid -started metoprolol (after home Coreg held on admission for hypotension) -f/u Cardio as outpt -encourage CPAP use #KIM- Likely prerenal in the setting of acute illness, now resolved after IVF resuscitation #Type 2 diabetes w/ peripheral neuropathy-follows with Endocrine PA, on Sathish, A1C controlled on last check 01/18 - Hold tirzepatide and consider stopping for a while or altogether as can contribute to ileus -Novolog SSI -check A1C in AM -home pregabalin held on admission--> resume at lower dose of 100mg po bid for now, then gradually back up to home dose 225mg po bid #Alcohol use disorder -in remission for 4 years, on naltrexone. Drinks 1 glass of wine occasionally. No signs of EtOH withdrawal here -resume home naltrexone if can be brought in from home #Acute metabolic encephalopathy- secondary to septic shock, hospital delirium, occasional opioid use, electrolyte abnormalities, immobility -dc all opioids -replete lytes -supportive care -mobilize with PT/OT #Hypertension/HLD-BPs low on admission and all meds held. Now BPs elevated despite starting dilt and metoprolol for PAT -increase dilt to 90mg po tid and eventually to long acting -continue metoprolol 50mg po bid -resume home terazosin 10mg po hs -resume home Zetia #Chronic migraine-no acute issues - Home topiramate on hold since admission-unclear reason -plan to resume likely 09/10 #Thoracic aortic aneurysm-ECHO ordered by Cardio shows TAA 4.3 cm -continue good BP control and annual surveillance #GERD-n acute issues -change IV PPI back to home po PPI DVT Prophylaxis- SCDs, change heparin bid to Lovenox 40mg SQ once daily now that KIM resolved Dispo-continued stay on PCU, PT/OT evals needed, will need rehab Admission and Anticipated Discharge Date Admission Date: September 02, 2025 Subjective Pt reports feeling mostly terrible. His thinks the diarrhea has slowed down a bit and he is now in control of when he needs to move his bowels, able to get to a bed [place]. He has not been out of bed since admission and is very weak. He continues to be SOB even with speaking in complete sentences and is on 2LNC O2. I discussed his care with Cardiology and with ID. Also discussed his care with at bedside. Tele with NSR, rates in 70s, and paroxysms of atrial tachycardia in the 120s Physical Exam Constitutional: well developed; no acute distress Respiratory: + tachypneic (with speaking in full sent ences) Auscultation: lungs clear to auscultation bilaterally Cardiovascular: RRR, no murmur, no edema Gastrointestinal (Abdomen): Inspection/Auscultation: abdomen normal to inspection and normal bowel sounds; abdomen not distended Percussion/Palpation: + abdomen tender (mild, diffuse w/o guarding or rebound) Psychiatric: Orientation: alert, oriented to person, oriented to place and cooperative Genitourinary: Carias in place with clear yellow urine Results & Data Results & Data Vital Signs (Past 12 Hours) Vital Signs Temp Pulse Resp BP Pulse Ox O2 Del Method O2 Flow Rate 09/09/25 10:48 36.3 C L 83 23 171/100 H 95 Nasal Cannula 2 09/09/25 07:28 84 18 95 Nasal Cannula 2 09/09/25 07:07 36.8 C 84 24 171/100 H 95 Nasal Cannula 2 09/09/25 03:44 37.1 C 111 H 20 165/109 H 95 Nasal Cannula 2 09/09/25 01:51 80 19 95 Nasal Cannula 2 Laboratory Results CBC, BMP x2, Mg x 2, Phos x 2 reviewed PG Care Time/CCT Total # of Minutes Spent Total Time Spent with Patient: Total time spent is greater than 50% in coordination of care (as documented) at patient's floor/unit and/or counseling patient: Coding Level of Care Code 65654 SUB INP/OBS CARE 3/50MIN Diagnoses Acute hypoxemic respiratory failure J96.01 Acute metabolic encephalopathy G93.41 Ileus K56.7 Enteropathogenic Escherichia coli infection A04.0
--- NOTE | 2025-09-09 14:10 | Cardiology Progress Note ---
Date of Service September 09, 2025 Assessment & Plan (1) SVT (supraventricular tachycardia): (2) (HFpEF) heart failure with preserved ejection fraction: (3) Hypertension: (4) Ascending aorta dilation: (5) Aortic regurgitation: Plan ASSESSMENT/PLAN: 1. SVT: Apparently terminated earlier this hospital stay with adenosine. [place] to be possible SVT by electrophysiology. Could also be atrial tachycardia when reviewing telemetry today. Rhythm does not appear to be atrial flutter. EP has suggested possible EP study and ablation at some point in the future, which can be considered once recovered from current noncardiac issues after follow-up in the cardiology office. Continue diltiazem and given recurrence and hypertension, can increase to 90 mg 3 times daily. Continue beta-tod he is asymptomatic with these episodes and heart rate tends to be near 120 bpm. Re commend repeating ECG for sustained arrhythmia. 2. Heart failure with preserved EF: Chronic issue. He does not appear to be significantly hypervolemic. 3. Sleep apnea: He did not wear BiPAP last evening. Untreated sleep apnea may trigger atrial arrhythmias. Discussed the importance of compliance. 4. Dilated ascending aorta: He is due for annual surveillance and given recurrent tachyarrhythmia, repeat echo while hospitalized. Avoid strenuous lifting for which the Valsalva maneuver is required. Improved blood pressure management. Continue beta-tod. 5. Aortic regurgitation: Mild as of last year. Repeating echo as above. 6. Hypertension: Increase diltiazem as above. Elevated blood pressure may be also driven by his abdominal discomfort. Titrate therapy as appropriate. 7. Ileus: As per GI and primary hospital service. 8. Disposition: Cardiology will continue to follow. Patient care communicated with Dr. Avila, of the primary hospitalist service. On discharge, follow-up with Dr. Nuñez, his primary site administrator. Admission and Anticipated Discharge Date Admission Date: September 02, 2025 Subjective I was asked to see Mr. Jonas by Dr. Avila for concerns of atrial arrhythmia. He was last seen by Dr. Jain on 09/05/2025. It had been noted to terminate with adenosine earlier this hospital stay per his notes. He has had recurrent atrial arrhythmia with mild tachycardia with heart rates 110 to 120 bpm. On 09/08/2025, an episode began at 2008 and terminated at 2320. Recurrence occurred this morning as well. He remains completely asymptomatic through these episodes, denying chest pain or palpitations, syncope or near sync ope. He has ongoing shortness of breath. His biggest issue continues to be abdominal discomfort, distention, and diarrhea. He and his agree that he is slowly improving over time. His accompanies him today. Physical Exam Physical Exam: Gen.: No acute distress. Alert. HEENT: Anicteric sclera. Neck: No JVD. Cardiac: Regular. Normal S1-S2. No murmurs, rubs, or gallops. Pulmonary: Clear to auscultation bilaterally without wheezes, rales, or rhonchi. Abdomen: Distended and tender throughout. Hypoactive bowel sounds. No bruits noted. Extremities: 2+ radial pulses bilaterally. 2+ posterior tibialis pulses bilaterally. Trace bilateral lower extremity edema, right > left. No cyanosis. Results & Data Vital Signs (Past 12 Hours) Vital Signs Temp Pulse Pulse Resp BP Pulse Ox O2 Del Method 09/09/25 13:39 80 18 96 Nasal Cannula 09/09/25 10:48 36.3 C L 83 23 171/100 H 95 Nasal Cannula 09/09/25 07:53 80 09/09/25 07:28 84 18 95 Nasal Cannula 09/09/25 07:07 36.8 C 84 24 171/100 H 95 Nasal Cannula 09/09/25 03:44 37.1 C 111 H 20 165/109 H 95 Nasal Cannula O2 Flow Rate 09/09/25 13:39 2 09/09/25 10:48 2 09/09/25 07:53 09/09/25 07:28 2 09/09/25 07:07 2 09/09/25 03:44 2 Laboratory Results Laboratory Results - last 24 hr 09/08/25 09/08/25 09/08/25 15:49 16:18 20:34 WBC RBC Hgb Hct MCV MCH MCHC RDW Std Deviation RDW Coeff of Roni Plt Count MPV Immature Gran % (Auto) Neut % (Auto) Lymph % (Auto) [place] % (Auto) Eos % (Auto) Baso % (Auto) Neut # (Auto) Lymph # (Auto) [place] # (Auto) Eos # (Auto) Baso # (Auto) Immature Gran # (Auto) Sodium 141 Potassium 3.3 L Chloride 106 Carbon Dioxide 29 Anion Gap 6 BUN 10 Creatinine 0.45 L Est Cr Clr Drug Dosing 152.5 eGFR 107.78 BUN/Creatinine Ratio 22.2 H Glucose 141 H POC Glucose 138 H 150 H Calcium 7.5 L Phosphorus 1.8 L Magnesium Total Bilirubin Direct Bilirubin AST ALT Alkaline Phosphatase Total Protein Albumin 2.5 L Triglycerides 09/09/25 09/09/25 09/09/25 04:30 07:11 10:50 WBC 13.13 H RBC 4.54 L Hgb 13.1 L Hct 38.5 L MCV 84.8 MCH 28.9 MCHC 34.0 RDW Std Deviation 46.2 RDW Coeff of Roni 15.0 H Plt Count 240 MPV 9.9 Immature Gran % (Auto) 0.9 Neut % (Auto) 71.6 Lymph % (Auto) 10.3 [place] % (Auto) 11.3 Eos % (Auto) 5.3 Baso % (Auto) 0.6 Neut # (Auto) 9.39 H Lymph # (Auto) 1.35 [place] # (Auto) 1.49 H Eos # (Auto) 0.70 H Baso # (Auto) 0.08 Immature Gran # (Auto) 0.12 Sodium 139 Potassium 3.2 L Chloride 105 Carbon Dioxide 29 Anion Gap 5 BUN 8 Creatinine 0.45 L Est Cr Clr Drug Dosing 152.5 eGFR 107.78 BUN/Creatinine Ratio 17.8 Glucose 140 H POC Glucose 117 H 189 H Calcium 7.6 L Phosphorus 2.3 L Magnesium 1.7 Total Bilirubin 0.7 Direct Bilirubin 0.3 H AST 23 ALT 16 Alkaline Phosphatase 74 Total Protein 5.5 L Albumin 2.7 L Triglycerides 123 Diagnostic Findings Labs reviewed and notable for mild hypokalemia, stable renal function, stable hemoglobin, mild leukocytosis. Echo report reviewed from 09/05/2024: Normal LV size, wall motion, systolic function. EF 65-70%. Severe concentric LVH. Ascending aorta 4.4 cm. Mild AI. Mild MR. Telemetry personally reviewed: Predominantly sinus rhythm with sustained SVT/atrial tachycardia. Chart reviewed. PG Care Time/CCT Total # of Minutes Spent Total Time Spent with Patient: Total time spent is greater than 50% in coordination of care (as documented) at patient's floor/unit and/or counseling patient: Coding Level of Care Code 10065 SUB INP/OBS CARE 3/50MIN Diagnoses SVT (supraventricular tachycardia) I47.10 (HFpEF) heart failure with preserved ejection fraction I50.30 Hypertension I10 Ascending aorta dilation I77.810 Aortic regurgitation I35.1
[2025-09-09] MEDS: CLINOLIPID 20% IV FAT EMULSION 250 ML IV SCH (15:54)
[2025-09-09 18:46] LABS: Anion Gap 6.0 (3-11); Blood Urea Nitrogen 9.0 mg/dl (6-23); Calcium 7.7 mg/dl (8.6-10.3); Carbon Dioxide 28.0 mmol/L (21-32); Chloride 104.0 mmol/L (98-107); Creatinine Clr Calc Pharmacy 167.4 ml/min; Glucose 189.0 mg/dl (70-99(Fasting)); Magnesium 2.0 mg/dl (1.7-2.4); Potassium 3.7 mmol/L (3.5-5.1); Sodium 138.0 mmol/L (136-145)
--- NOTE | 2025-09-09 19:11 | XCELERA ---
[id number]
[2025-09-09] MEDS: TERAZOSIN HCL 5 MG CAP PO SCH (23:02)
[2025-09-09] MEDS: PREGABALIN 100 MG CAP PO SCH (23:02)
[2025-09-10] MEDS: STOP CLINOLIPID SCH (03:56)
[2025-09-10 05:55] LABS: Hematocrit (blood only) 36.2 % (42.0-52.0); Hemoglobin 12.5 g/dL (14.0-18.0); Immature Granulocytes # (auto) 0.09 K/uL (0.01-0.20); Immature Granulocytes % (auto) 0.7 %; Mean Corpuscular Hemoglobin 29.6 pg (25.0-34.0); Mean Corpuscular Volume 85.6 fL (80.0-100.0); Platelet Count 234 K/uL (130-400); RDW Standard Deviation 46.0 fL (36.4-46.3); Red Blood Count 4.23 M/uL (4.70-6.10); White Blood Count 12.94 K/ul (4.8-10.8)
[2025-09-10 06:19] LABS: Anion Gap 5.0 (3-11); Calcium 7.3 mg/dl (8.6-10.3); Carbon Dioxide 27.0 mmol/L (21-32); Chloride 105.0 mmol/L (98-107); Magnesium 1.9 mg/dl (1.7-2.4); Potassium 4.1 mmol/L (3.5-5.1); Sodium 137.0 mmol/L (136-145)
[2025-09-10 06:25] LABS: Blood Urea Nitrogen 10.0 mg/dl (6-23); Creatinine Clr Calc Pharmacy 132.0 ml/min; Glucose 196.0 mg/dl (70-99(Fasting))
[2025-09-10] MEDS: MAGNESIUM SULFATE / D5W 1 GM/100 ML BAG IV ONE (07:59)
[2025-09-10] MEDS: ENOXAPARIN INJ 40 MG/0.4 ML SYR SQ SCH (08:01)
[2025-09-10] MEDS: UMECLIDINIUM/VILANTEROL 62.5/25MCG 7 PUFFS/INHALER INH SCH (08:01)
[2025-09-10] MEDS: THIAMINE HCL 100 MG TAB PO SCH (08:02)
[2025-09-10] MEDS: EZETIMIBE 10 MG TAB PO SCH (08:02)
[2025-09-10] MEDS: LORATADINE 10 MG TAB PO SCH (08:02)
[2025-09-10 08:12] LABS: Hemoglobin A1C 5.8 % (4.5-5.6)
[2025-09-10] MEDS: BUMETANIDE 1 MG TAB PO SCH (08:13)
[2025-09-10] MEDS ORDERED: BUMETANIDE 1 MG TAB PO SCH (09:00)
[2025-09-10] MEDS ORDERED: ALBUT/IPRATROP 3MG/0.5MG NEB 3 ML VIAL NEB PRN (09:29)
--- NOTE | 2025-09-10 09:29 | Hospitalist Progress Note ---
Date of Service September 10, 2025 Assessment & Plan (1) Acute hypoxemic respiratory failure: (2) Acute metabolic encephalopathy: (3) Ileus: (4) Enteropathogenic Escherichia coli infection: Plan This pt is a 79 yo male with a h/o chronic HFpEF, HTN, HLD, TAA, peripheral neuropathy, DMII, COPD, GERD, previous AUD now on naltrexone, chronic pain, migraines, LINDSAY on CPAP, urinary incontinence, prostate CA s/p prostatectomy, here with septic and hypovolemic shock from severe E. coli and C. diff induced colitis as well as an ileus and acute metabolic encephalopathy. #Septic shock/Acute Colitis/[place]'s/Ileus- With significant diarrhea, PCR positive for EPEC, cdiff gene positive, toxin negative but treating empirically regardless. Initially required ICU for Levophed, then quickly weaned off. CT with colitis and dilated colon now improving on subsequent KUB. Finished a 3 day course of IV ceftriaxone for EPEC as per ID recommendation. With ongoing loose stools and abd distension starting to improve. Appreciate GI consultation- recommends against any antimotility meds and recommends giving Miralax daily for motility. WBC count up slightly on 09/09 for unclear reason but afebrile and now trending downward, Procal down significantly since admission from 24 to 0.71. -continue oral vanco high dose 500mg po qid x 10 day course -continue IV Flagyl -avoid meds that can cause ileus-dcd home baclofen, trospium, ?Mounjaro -follow CBC, Procal in AM -Continue TPN through PICC for at least one more day until tolerating a low fiber diet-adv diet to low fiber 09/10 -hold off on giving Miralax given ongoing diarrhea? #Acute respiratory failure w/ hypoxemia/Acute on chronic HFpEF/LINDSAY/COPD-Had resp distress and required BiPAP, was hypoxemic-likely dye to acute on chronic HFpEF. Chest X-ray consistent with volume overload. Lasix initiated x 2 doses and had improvement. BPs remained elevated, still requiring 2LNC O2 and has dyspnea at rest -strict I/Os, daily weights, low sodium diet -dc Carias when more mobile -resume home bumex at lower dose of 1mg po daily -continue CPAP hs-he has been unabe to tolerate this -continue albuterol nebs but change to prn -resumed home maintenance inhaler (Stiolto) and resumed home Singulair, Claritin #Hypokalemia/Hypophosphatemia/Hypomagnesemia-all low from GI losses, poor po intake--> improving now with aggressive replacement, TPN -give 1 gram IV Mag -follow BMP, Mag, Phos in AM #Acute metabolic encephalopathy- secondary to septic shock, hospital delirium, occasional opioid use, electrolyte abnormalities, immobility, noncompliance with CPAP. Slowly improving but very lethargic again on AM of 09/10 potentially after receiving Lyrica which had been held -avoid all opioids -replete lytes -supportive care -mobilize with PT/OT -encourage CPAP use -further reduce Lyrica to 100mg po qAM rather than bid -check ABG for CO2 retention #Paroxysmal atrial tachycardia-continues to be having intermittent periods of A- tach on tele, asymptomatic, Noncompliance with CPAP and lyte abnormalities contributing. Broke with adenosine with Cardiology. Appreciate Cardio consult -consider EP study as outpt -started diltiazem--> increased dose to 90mg po tid -started metoprolol (after home Coreg held on admission for hypotension) -f/u Cardio as outpt -encourage CPAP use #KIM- Likely prerenal in the setting of acute illness, now resolved after IVF resuscitation #Type 2 diabetes w/ peripheral neuropathy-follows with Endocrine PA, radha Bower, A1C excellent at 5.8% - Hold tirzepatide and consider stopping for a while or altogether as can contribute to ileus -Novolog SSI -home pregabalin held on admission--> resumed at lower dose of 100mg po bid for now, then gradually back up to home dose 225mg po bid--> very lethargic after resuming Lyrica on AM of 09/10-monitor and may need to hold evening dose #Alcohol use disorder -in remission for 4 years, on naltrexone. Drinks 1 glass of wine occasionally. No signs of EtOH withdrawal here -resumed home naltrexone for eveing of 09/10 #Hypertension/HLD-BPs low on admission and all meds held. Then BPs elevated despite starting dilt and metoprolol for PAT. Resumed terazosin and increased dilt dose, now BPs soft -continue dilt 90mg po tid and eventually convert to long acting -continue metoprolol 50mg po bid -hold home terazosin 10mg po hs for soft BPs -continue home Zetia #Chronic migraine-no acute issues - Home topiramate on hold since admission-unclear reason -plan to resume in next 1-2 days-hold off for now due to lethargy as topiramate can also cause [employer] depression #Thoracic aortic aneurysm-ECHO ordered by Cardio shows TAA 4.3 cm -continue good BP control and annual surveillance #GERD-no acute issues -cont home po PPI DVT Prophylaxis- SCDs, Lovenox 40mg SQ once daily Dispo-continued stay on PCU, PT/OT evals needed, will need rehab Admission and Anticipated Discharge Date Admission Date: September 02, 2025 Subjective Pt was more awake for breakfast as per nurse and ate almost all his food. No BM yet today. Pt very lethargic though and continuously falling asleep while talking to me. Says his abdomen feels "better." H repeatedly took of his CPAP through the night as per nursing report. Tele with NSR 70-80s and PAT rates 110s for 1-2 hours at a time. Physical Exam Constitutional: well developed; no acute distress Eyes: PERRL, conjunctivae normal, anicteric sclerae Respiratory: Auscultation: lungs clear to auscultation bilaterally Cardiovascular: RRR, no murmur, no edema Gastrointestinal (Abdomen): Inspection/Auscultation: abdomen normal to inspection, + abdomen distended (mild) and normal bowel sounds Percussion/Palpation: + abdomen tender (mild, diffuse w/o guarding or rebound) Psychiatric: Orientation: + not alert (very drowsy) Results & Data Results & Data Vital Signs (Past 12 Hours) Vital Signs Temp Pulse Pulse Resp BP BP Pulse Ox 09/10/25 07:23 84 22 96 09/10/25 07:02 36.6 C 84 21 99/60 L 93 09/10/25 06:17 81 22 107/70 94 09/10/25 02:52 36.8 C 90 24 109/79 94 09/10/25 00:22 89 20 157/89 H 93 09/09/25 23:00 94 H 09/09/25 22:58 37.3 C 93 H 24 184/105 H 93 O2 Del Method O2 Flow Rate 09/10/25 07:23 Nasal Cannula 2 09/10/25 07:02 Nasal Cannula 2 09/10/25 06:17 Nasal Cannula 2 09/10/25 02:52 Nasal Cannula 2 09/10/25 00:22 CPAP 2 09/09/25 23:00 09/09/25 22:58 Oxymask 2 Laboratory Results CBC, BMP, magnesium, procal, blood and urine cxs reviewed PG Care Time/CCT Total # of Minutes Spent Total Time Spent with Patient: Total time spent is greater than 50% in coordination of care (as documented) at patient's floor/unit and/or counseling patient: Coding Level of Care Code 09705 SUB INP/OBS CARE 3/50MIN Diagnoses Acute hypoxemic respiratory failure J96.01 Acute metabolic encephalopathy G93.41 Ileus K56.7 Enteropathogenic Escherichia coli infection A04.0
[2025-09-10 10:00] LABS: HCO3 ABG 30 mmol/L (19-24); Oxygen Saturation ABG 96.2 % (90-95); PCO2 ABG 44 mmHg (35-46); PO2 ABG 69 mmHg (80-95)
[2025-09-10 10:02] LABS: Allen Test Pos (Pos)
--- NOTE | 2025-09-10 10:07 | Pharmacy Report ---
Pharmacy PN Follow-up Note - Date of Service September 10, 2025 - Subjective Patient is currently on day #3 of TPN for Ileus. - Objective Height & Weight (Last Documented) Height 5 ft 10 in Weight 89.8 kg Diet Order(s) 09/07/25 Lunch Diet Intake & Ouput (24hrs) 09/09/25 09/10/25 09/11/25 06:59 06:59 06:59 Intake Total 2002.667 / 2002.667 3043.333 / 3043.333 100 / 100 Output Total 1355 / 1355 2927 / 2927 Balance 648.667 / 648.667 116.333 / 116.333 100 / 100 Selected Laboratory Results 09/09/25 09/10/25 18:10 05:28 Sodium 138 137 Potassium 3.7 4.1 Chloride 104 105 Carbon Dioxide 28 27 Anion Gap 6 5 BUN 9 10 Creatinine 0.41 L 0.52 L BUN/Creatinine Ratio 22.0 H 19.2 Glucose 189 H 196 H Calcium 7.7 L 7.3 L Phosphorus 2.3 L 2.9 Magnesium 2.0 1.9 - Assessment & Plan Assessment: Patient tolerated 50g w/ breakfast, 44g with lunch and 80g for dinner on liquid diet yesterday. After discussion with the provider, will plan to re-order TPN again today to ensure he continues to tolerate PO diet. Will re-assess tomorrow but can likely stop TPN if he continues to tolerate diet. Will not advance macronutrients any further today given supplemental PO intake. Electrolytes improved today. Patient received only a supplemental dose of magnesium but did received a dose of Bumex this morning. Plan: * For Day #3 of TPN administration, the following will be ordered: * Macronutrients: * Amino Acids: 67 grams/day * Dextrose: 118 grams/day * Lipids: 50 grams/day * Micronutrients: * Sodium chloride: 75 mEq/day * Sodium acetate: 20 mEq/day * Potassium phosphate: 21 mMol/day * Potassium acetate: 45 mEq/day * Magnesium sulfate: 12.18 mEq/day * Calcium gluconate: 4.65 mEq/day * Multivitamins: 10 mL/day * Trace elements: 1 mL/day * Thiamine: 100 mg/day * Total volume of 934.5 mL will be infused over 24 hours and will provide 1168 kcal/day * Labs will be ordered per PN protocol. * Pharmacy will follow and adjust PN orders on a daily basis. Thank you!
--- NOTE | 2025-09-10 10:24 | XRay Report ---
KUB HISTORY: Acute generalized abdominal pain with ileus ileus,diarrhea COMPARISON: KUB 09/08/2025 FINDINGS: Air-filled distended loops of large and small bowel redemonstrated, not significant change from prior. Small bowel loops measure up to approximately 3 cm. Moderate colonic fecal retention. [place] gical clips of the pelvis. No renal calculi. No ureteral calculi. No pneumoperitoneum or pneumatosis . No fracture. IMPRESSION: 1. Persistent dilated large and small bowel loops suggestive of probable ileus. Continued follow-up r ecommended. 2. Moderate colonic fecal retention. ACT 112: Negative or not required by law. The above report was generated using voice recognition software. It may contain grammatical, syntax o r spelling errors. Electronically signed by: Olvin Landin M.D. 09/10/2025 10:23 AM
--- NOTE | 2025-09-10 10:31 | Gastroenterology Progress Note ---
Date of Service September 10, 2025 Assessment & Plan (1) Ileus: Plan: - will await results of KUB. - can use miralax pending results of KUB. - Further recommendations to come with Supervising GI provider on medical rounds. Please see co-signature comments. Admission and Anticipated Discharge Date Admission Date: September 02, 2025 Supervising Physician Co-Signing Physician Notes Pretty much the same. Is tolerating some p.o. Expect continued small bowel and colonic dilatation. Management will be correction of his underlying medical issues and mobility. MiraLAX held due to some dehydration and low blood pressure. Reinstitute when able. Abdomen about the same. Subjective Patient is lethargic. sleeping. discussed case with Dr. Avila. No bowel movements today. Currently getting KUB to assess ileus. potassium and phosphorus are normalized. Review of Systems Review of Systems: Unobtainable due to cognitive status Physical Exam Gastrointestinal (Abdomen): distended, soft. normal bowel sounds. Psychiatric: lethargic Results & Data Results & Data Vital Signs (Past 12 Hours) Vital Signs Temp Pulse Pulse Resp BP BP Pulse Ox 09/10/25 08:00 09/10/25 07:23 84 22 96 09/10/25 07:02 97.9 F 84 21 99/60 L 93 09/10/25 06:17 81 22 107/70 94 09/10/25 02:52 98.2 F 90 24 109/79 94 09/10/25 00:22 89 20 157/89 H 93 09/09/25 23:00 94 H 09/09/25 22:58 99.2 F 93 H 24 184/105 H 93 O2 Del Method O2 Flow Rate 09/10/25 08:00 Nasal Cannula 3 09/10/25 07:23 Nasal Cannula 2 09/10/25 07:02 Nasal Cannula 2 09/10/25 06:17 Nasal Cannula 2 09/10/25 02:52 Nasal Cannula 2 09/10/25 00:22 CPAP 2 09/09/25 23:00 09/09/25 22:58 Oxymask 2 Coding Level of Care Code 01748 SUB INP/OBS CARE 1/25MIN Diagnoses Ileus K56.7
[2025-09-10] MEDS: CALCIUM GLUCONATE 1,000 MG/60 ML BAG IV STA (12:46)
--- NOTE | 2025-09-10 13:24 | Infectious Disease Progress Nt ---
Date of Service September 10, 2025 Assessment & Plan (1) Enteropathogenic Escherichia coli infection: (2) C. difficile colitis: Plan Problems: #EPEC #? C diff #Ileus #Abdominal pain #Shock Micro: 09/02 UCx: NG 09/02 BCx x2: NG 09/02 Stool pathogen panel: + EPEC, C diff gene +, toxin - Abx: PO vanc 09/02 - present Metronidazole 09/02 - present Ceftriaxone 09/03 - 09/05 Cefepime 09/02 - 09/03 IV vanc 09/02 - 09/03 79 yo M with history of ischemic cardiomyopathy, HFpEF, PAD, COPD with emphysema, thoracic aortic aneurysm, LIN[place], degenerative back disease, history of recurrent multifocal pneumonia, HTN with labile BPs, history of alcohol dependence, migraine who presented on 09/02 with abrupt onset confusion, weakness, found to have colitis, sepsis. Per his , he was in his usual state of health the day prior to presentation. Overnight around 3am, pt went to the bathroom, had cramps and dry heaving. A few hours later, pt attempted to get up to use the bathroom again but was unable to do so independently and needed assistance from his . She reports he had a small amount of loose stool at that time, no blood noted in the stool. He was so weak that he was unable to get back to bed independently. EMS was called, and noted pt to be febrile to 102, hypotensive, hypoxic. Was placed on 3 L NC. On presentation, pt was afebrile, HR 120, BP 70/54. Did later become febrile to 38. Labs showed WBC 9.58, Cr 1.45, lactate 1.7 --> 2.8, procalcitonin 18.4. UA with 0-5 WBCs. RVP negative. CTAP with IV contrast showed moderate circumferential wall thickening of mid to distal descending and proximal to mid sigmoid colon, associated inflammation, findings representing a nonspecific colitis, possibly stercoral. Infectious or ischemic colitis also within differential. Large amount of stool within the colon and rectum. CTA chest with no PE, dependent airspace opacities favor atelectasis on top of chronic scarring, no airspace consolidation typical for pneumonia. Pt given IVF, started on vanc and cefepime. Was hypotensive despite fluid resuscitation, so admitted to ICU. Briefly on Levophed in ER. Stool PCR panel positive for EPEC and C diff gene, negative for C diff toxin. Rectal tube placed 09/02. Pt continued with elevated temps, last fever 09/03 AM. On evaluation 09/03, pt reported continued severe pain from his chest down to his pelvis, slightly improved from admission. He feels this pain is in his muscle. Thinks his diarrhea is improving, and he is not having abdominal cramping as much. reports he had C diff years ago. His denies diarrhea, and states she eats mostly the same things as her , aside from some fruits that her eats. KUB repeated 09/03, showing increase in gaseous distension of small and large bowel, likely related to colitis on CT, however distal colonic obstruction difficult to completely exclude. Large amount of poorly formed stool throughout colon and rectum. CTAP repeated 09/03 PM, which showed excess stool burden in the rectum with upstream colonic distension up to 7 cm concerning for obstruction. GI consulted, noted that pt has been moving his bowels. They are concerned for [place] after infectious enteritis. Discussion: EPEC is typically managed with supportive care, although antibiotics may be used in severe, bloody, or persistent diarrhea--treated with ceftriaxone x 3 days given pt's persistent fevers, diarrhea. C diff PCR positive, toxin negative could indicate C diff colonization rather than infection, but reasonable to treat given diarrhea. Administering as high dose PO vanc and IV flagyl in the setting of ileus. Recommendations: - Continue PO vanc 500 mg QID and metronidazole 500 mg IV q8h for possible fulminant C diff, given ileus. Hope to de-escalate to PO vanc 125 mg QID soon if ileus resolving Will continue to follow Admission and Anticipated Discharge Date Admission Date: September 02, 2025 Subjective This patient recommendation is based on a telemedicine consult request which was completed asynchronously through chart review and information provided by the primary physician. The patient was not seen or examined today. The evaluation is consultative in nature and all patient care and treatment decisions can either be accepted or rejected by the patient's primary hospital-based treating physician using their own independent medical judgment for their patient. Time Spent Reviewing Chart: 11 - 20 minutes KUB today with persistent dilated large and small bowel loops suggestive of ileus, no significant change from prior, moderate colonic fecal retention Afebrile WBC 12.94 Results & Data Vital Signs (Past 12 Hours) Vital Signs Temp Pulse Resp BP Pulse Ox O2 Del Method O2 Flow Rate 09/10/25 11:05 36.2 C L 69 21 99/57 L 94 Nasal Cannula 2 09/10/25 08:00 Nasal Cannula 3 09/10/25 07:23 84 22 96 Nasal Cannula 2 09/10/25 07:02 36.6 C 84 21 99/60 L 93 Nasal Cannula 2 09/10/25 06:17 81 22 107/70 94 Nasal Cannula 2 09/10/25 02:52 36.8 C 90 24 109/79 94 Nasal Cannula 2
[2025-09-10] MEDS: CLINOLIPID 20% IV FAT EMULSION 250 ML IV SCH (15:39)
--- NOTE | 2025-09-10 18:06 | Cardiology Progress Note ---
Date of Service September 10, 2025 Assessment & Plan (1) SVT (supraventricular tachycardia): (2) (HFpEF) heart failure with preserved ejection fraction: (3) Hypertension: (4) Ascending aorta dilation: (5) Aortic regurgitation: Plan ASSESSMENT/PLAN: 1. SVT: Apparently terminated earlier this hospital stay with adenosine. [place] to be possible SVT by electrophysiology. Could also be atrial tachycardia when reviewing telemetry today. Rhythm does not appear to be atrial flutter. EP has suggested possible EP study and ablation at some point in the future, which can be considered once recovered from current noncardiac issues after follow-up in the cardiology office. Diltiazem increased to 90 mg 3 times daily on 09/09/2025 and no significant recurrence of arrhythmia since, so far. Continue beta- tod. He is asymptomatic with these episodes and heart rate tends to be near 120 bpm. Recommend repeating ECG for sustained arrhythmia. 2. Heart failure with preserved EF: Chronic issue. He does not appear to be significantly hypervolemic. 3. Sleep apnea: Untreated sleep apnea may trigger atrial arrhythmias. Discussed the importance of compliance. 4. Dilated ascending aorta: Mildly dilated ascending aorta/root. Has had echo and CT imaging this year. Annual surveillance. Continue beta-tod. 5. Aortic regurgitation: Mild as of last year. Repeating echo as above. 6. Hypertension: Blood pressure had been hypertensive but today low normal and occasionally mildly hypotensive. Continue diltiazem and metoprolol if tolerated as above. He does not appear to be significantly hypervolemic and could consider holding Bumex if hypotension becomes an issue. 7. Ileus: As per GI and primary hospital service. 8. Disposition: Please call with any further questions or concerns from a cardiology perspective. Patient care communicated with Dr. Avila, of the primary hospitalist service. On discharge, follow-up with Dr. Nuñez, his primary vocational rehabilitation counselor. Admission and Anticipated Discharge Date Admission Date: September 02, 2025 Subjective Patient seen this afternoon. He denies chest pain, shortness of breath, syn cope, near syncope, palpitations. He stood up twice today which is the first time in quite some time. His abdominal discomfort is slowly improving. Diarrhea is slowly improving. His was present at the bedside. Physical Exam Physical Exam: Gen.: No acute distress. Alert. HEENT: Anicteric sclera. Neck: No JVD. Cardiac: Regular. Normal S1-S2. No murmurs, rubs, or gallops. Pulmonary: Clear to auscultation bilaterally without wheezes, rales, or rhonchi. Abdomen: Distended and mildly tender throughout. Hypoactive bowel sounds. No bruits noted. Extremities: 2+ radial pulses bilaterally. 2+ posterior tibialis pulses bilaterally. No significant edema. No cyanosis. Results & Data Vital Signs (Past 12 Hours) Vital Signs Temp Pulse Resp BP Pulse Ox O2 Del Method O2 Flow Rate 09/10/25 15:48 36.8 C 64 21 108/55 L 99 Nasal Cannula 2 09/10/25 15:03 93 5 09/10/25 11:05 36.2 C L 69 21 99/57 L 94 Nasal Cannula 2 09/10/25 08:00 Nasal Cannula 3 09/10/25 07:23 84 22 96 Nasal Cannula 2 09/10/25 07:02 36.6 C 84 21 99/60 L 93 Nasal Cannula 2 09/10/25 06:17 81 22 107/70 94 Nasal Cannula 2 Intake & Output 09/08/25 09/09/25 09/10/25 09/11/25 06:59 06:59 06:59 06:59 Intake Total 1300 / 1300 2003.667 / 2003.667 3043.333 / 3043.333 1775.75 / 1775.75 Output Total 3030 / 3030 1355 / 1355 2927 / 2927 225 / 225 Balance -1730 / -1730 648.667 / 648.667 116.333 / 944.960 5106.75 / 1550.75 Weight 197 lb 12.8 oz 197 lb 12.8 oz 197 lb 15.602 oz Laboratory Results Laboratory Results - last 24 hr 09/09/25 09/09/25 09/10/25 18:10 20:42 05:28 WBC 12.94 H RBC 4.23 L Hgb 12.5 L Hct 36.2 L MCV 85.6 MCH 29.6 MCHC 34.5 RDW Std Deviation 46.0 RDW Coeff of Roni 14.8 H Plt Count 234 MPV 10.3 Immature Gran % (Auto) 0.7 Neut % (Auto) 77.6 Lymph % (Auto) 7.1 [place] % (Auto) 11.1 Eos % (Auto) 3.2 Baso % (Auto) 0.3 Neut # (Auto) 10.04 H Lymph # (Auto) 0.92 L [place] # (Auto) 1.44 H Eos # (Auto) 0.41 Baso # (Auto) 0.04 Immature Gran # (Auto) 0.09 ABG pH ABG pCO2 ABG pO2 ABG HCO3 ABG O2 Saturation ABG Base Excess [place] Test Oxygen Given Sodium 138 137 Potassium 3.7 4.1 Chloride 104 105 Carbon Dioxide 28 27 Anion Gap 6 5 BUN 9 10 Creatinine 0.41 L 0.52 L Est Cr Clr Drug Dosing 167.4 132.0 eGFR 110.85 103.17 BUN/Creatinine Ratio 22.0 H 19.2 Glucose 189 H 196 H POC Glucose 153 H Estimat Average Glucose 120 Hemoglobin A1c 5.8 H Calcium 7.7 L 7.3 L Phosphorus 2.3 L 2.9 Magnesium 2.0 1.9 Procalcitonin 0.71 H 09/10/25 09/10/25 09/10/25 07:07 09:47 11:10 WBC RBC Hgb Hct MCV MCH MCHC RDW Std Deviation RDW Coeff of Roni Plt Count MPV Immature Gran % (Auto) Neut % (Auto) Lymph % (Auto) [place] % (Auto) Eos % (Auto) Baso % (Auto) Neut # (Auto) Lymph # (Auto) [place] # (Auto) Eos # (Auto) Baso # (Auto) Immature Gran # (Auto) ABG pH 7.44 ABG pCO2 44 ABG pO2 69 L ABG HCO3 30 H ABG O2 Saturation 96.2 H ABG Base Excess 5.0 H [place] Test Pos Oxygen Given 3L Sodium Potassium Chloride Carbon Dioxide Anion Gap BUN Creatinine Est Cr Clr Drug Dosing eGFR BUN/Creatinine Ratio Glucose POC Glucose 168 H 203 H Estimat Average Glucose Hemoglobin A1c Calcium Phosphorus Magnesium Procalcitonin 09/10/25 15:45 WBC RBC Hgb Hct MCV MCH MCHC RDW Std Deviation RDW Coeff of Roni Plt Count MPV Immature Gran % (Auto) Neut % (Auto) Lymph % (Auto) [place] % (Auto) Eos % (Auto) Baso % (Auto) Neut # (Auto) Lymph # (Auto) [place] # (Auto) Eos # (Auto) Baso # (Auto) Immature Gran # (Auto) ABG pH ABG pCO2 ABG pO2 ABG HCO3 ABG O2 Saturation ABG Base Excess [place] Test Oxygen Given Sodium Potassium Chloride Carbon Dioxide Anion Gap BUN Creatinine Est Cr Clr Drug Dosing eGFR BUN/Creatinine Ratio Glucose POC Glucose 181 H Estimat Average Glucose Hemoglobin A1c Calcium Phosphorus Magnesium Procalcitonin Diagnostic Findings Labs reviewed and notable for stable renal function, normal potassium, mild anemia, stable leukocytosis. Telemetry personally reviewed: Sinus rhythm today without recurrent SVT when evaluated this afternoon. Echo 09/09/2025: Normal LV size, wall motion, systolic function. EF 65-70%. Moderate LVH. Trace AI. Aortic root 4.3 cm. Normal RVSP. ID note from today reviewed. Hospitalist note reviewed. Medications Administered Current Inpatient Medications Albuterol (Albut/Ipratrop 3mg/0.5mg Neb 3 Ml Vial) 3 ml NEB Q6R PRN; Protocol PRN Reason: SOB,wheezing Stop: 10/02/25 18:59 Bumetanide (Bumetanide 1 Mg Tab) [facility] [place] Stop: 10/10/25 08:59 Last Admin: 09/10/25 08:13 Dose: 1 mg Dextrose (Dextrose 50% 50 Ml Syringe) 25 - 50 ml IV UD PRN; Protocol PRN Reason: Hypoglycemia Protocol Stop: 10/07/25 12:04 Diclofenac Sodium (Diclofenac Sod 1% Gel 100 Gm Tube) 2 gm EXT TID [facility]; Protocol Stop: 10/05/25 08:59 Last Admin: 09/10/25 13:06 Dose: 2 gm Diltiazem HCl (Diltiazem Hcl 60 Mg Tab) 60 mg PO Q8H [facility] Stop: 10/10/25 12:11 Last Admin: 09/10/25 12:54 Dose: Not Given Ezetimibe (Ezetimibe 10 Mg Tab) 10 mg PO QAM [facility] Stop: 10/10/25 08:59 Last Admin: 09/10/25 08:02 Dose: 10 mg Enoxaparin Sodium (Enoxaparin Inj 40 Mg/0.4 Ml Syr) 40 mg SQ QAM [facility] Stop: 10/10/25 08:59 Last Admin: 09/10/25 08:01 Dose: 40 mg Glucagon (Glucagon For Inj 1 Mg Vial) 1 mg SQ UD PRN; Protocol PRN Reason: Hypoglycemia Protocol Stop: 10/07/25 12:04 Glucose (Glucose 40% Gel 15 Gm Tube) 15 - 30 gm PO UD PRN; Protocol PRN Reason: Hypoglycemia Protocol Stop: 10/07/25 12:04 Glucose (Glucose 10 Tab/Tube) 4 - 8 tab PO UD PRN; Protocol PRN Reason: Hypoglycemia Protocol Stop: 10/07/25 12:04 Heparin Sodium (Beef Lung) (Heparin 10 Unit/Ml 5 Ml Flush) 5 ml FLUSH PRN PRN PRN Reason: Flush Stop: 10/08/25 12:27 Metronidazole (Flagyl) 500 mg in 100 mls @ 100 mls/hr IV Q8H [facility]; Protocol Stop: 09/12/25 14:29 Last Infusion: 09/10/25 14:52 Dose: Infused Dextrose (D10w) 1,000 mls @ 0 mls/hr IV .Q0M PRN PRN Reason: protocol (see label comments) Stop: 09/11/25 12:23 Amino Acids/Dextrose 934.5 ml/ (Nutrition (Parenteral)) 934.5 mls @ 38.94 mls/hr IV .Q24H [facility]; Protocol Stop: 09/11/25 15:59 Last Admin: 09/10/25 15:39 Dose: 38.9 mls/hr Fat Emulsion-Roach Oil/Soybean Oil (Clinolipid 20% Iv Fat Emulsion) 250 mls @ 20.8 mls/hr IV .Q12H2M [facility] Stop: 09/11/25 04:01 Last Admin: 09/10/25 15:39 Dose: 20.8 mls/hr Insulin Aspart (Insulin Aspart Per Unit Charge) 0 units SC ACHS [facility] Stop: 10/07/25 16:29 Last Admin: 09/10/25 16:50 Dose: 4 units Lidocaine (Lidocaine 5% 1 Patch) 1 patch TD QAM [facility] Stop: 10/05/25 19:29 Last Admin: 09/10/25 08:02 Dose: 1 patch Loratadine (Loratadine 10 Mg Tab) 10 mg PO QAM [facility] Stop: 10/10/25 08:59 Last Admin: 09/10/25 08:02 Dose: 10 mg Metoprolol Tartrate (Metoprolol Tartrate 50 Mg Tab) 50 mg PO BID [facility] Stop: 10/05/25 20:59 Last Admin: 09/10/25 08:13 Dose: 50 mg Miscellaneous (Remove Lidoderm Patch) 1 each N/A DAILY@2100 [facility] Stop: 10/05/25 20:59 Last Admin: 09/09/25 21:09 Dose: 1 each Miscellaneous (Carbohydrates For Hypoglycemia ) 15 - 30 gm PO UD PRN PRN Reason: Hypoglycemia Protocol Stop: 10/07/25 12:04 Miscellaneous (Stop Clinolipid) 1 each N/A TODAY@04 [facility] Stop: 10/10/25 03:59 Last Admin: 09/10/25 03:56 Dose: 1 each Miscellaneous Information (Tpn/Ppn Consult Pharmacy) 1 each N/A UD PRN PRN Reason: Consult Stop: 10/08/25 11:28 Montelukast Sodium (Montelukast Sodium 10 Mg Tablet) 10 mg PO HS [facility] Stop: 10/10/25 20:59 Naltrexone HCl (Naltrexone Hcl 50 Mg Tab) 50 mg PO HS [facility] Stop: 10/10/25 20:59 Ondansetron HCl (Ondansetron Inj 2 Mg/Ml 2 Ml Vial) 4 mg IV Q6H PRN PRN Reason: Nausea And Vomiting Stop: 10/03/25 14:12 Last Admin: 09/09/25 23:26 Dose: 4 mg Pantoprazole Sodium (Pantoprazole 40 Mg Tab) 40 mg PO QAM [facility] Stop: 10/10/25 08:59 Last Admin: 09/10/25 08:02 Dose: 40 mg Pregabalin (Pregabalin 100 Mg Cap) 100 mg PO QAM [facility] Stop: 10/11/25 08:59 Terazosin HCl (Terazosin Hcl 5 Mg Cap) 10 mg PO [facility] Stop: 10/09/25 22:09 Last Admin: 09/09/25 23:02 Dose: 10 mg Thiamine HCl (Thiamine Hcl 100 Mg Tab) 300 mg PO BID [facility] Stop: 10/10/25 08:59 Last Admin: 09/10/25 08:02 Dose: 300 mg Umeclidinium/Vilanterol (Umeclidinium/Vilanterol 62.5/25mcg 7 Puffs/Inhaler) 1 puffs INH QAM [facility] Stop: 10/10/25 08:59 Last Admin: 09/10/25 08:01 Dose: 1 puffs Vancomycin HCl (Vancomycin Hcl 250 Mg Cap) 500 mg PO Q6 [facility] Stop: 09/12/25 17:59 Last Admin: 09/10/25 16:51 Dose: 500 mg PG Care Time/CCT Total # of Minutes Spent Total Time Spent with Patient: Total time spent is greater than 50% in coordination of care (as documented) at patient's floor/unit and/or counseling patient: Coding Level of Care Code 51571 SUB INP/OBS CARE 3/50MIN Diagnoses SVT (supraventricular tachycardia) I47.10 (HFpEF) heart failure with preserved ejection fraction I50.30 Hypertension I10 Ascending aorta dilation I77.810 Aortic regurgitation I35.1
[2025-09-10] MEDS: NALTREXONE HCL 50 MG TAB PO SCH (20:57)
[2025-09-10] MEDS: MONTELUKAST SODIUM 10 MG TABLET PO SCH (22:09)
[2025-09-11] MEDS: PREGABALIN 100 MG CAP PO SCH (08:11)
[2025-09-11 09:17] LABS: Hematocrit (blood only) 35.3 % (42.0-52.0); Hemoglobin 11.6 g/dL (14.0-18.0); Immature Granulocytes # (auto) 0.11 K/uL (0.01-0.20); Immature Granulocytes % (auto) 1.1 %; Mean Corpuscular Hemoglobin 28.9 pg (25.0-34.0); Mean Corpuscular Volume 88.0 fL (80.0-100.0); Platelet Count 259 K/uL (130-400); RDW Standard Deviation 49.2 fL (36.4-46.3); Red Blood Count 4.01 M/uL (4.70-6.10); White Blood Count 10.06 K/ul (4.8-10.8)
[2025-09-11 09:33] LABS: Alanine Aminotransferase 14.0 U/L (7-52); Bilirubin,Total 0.4 mg/dl (0.2-1.0); Blood Urea Nitrogen 15.0 mg/dl (6-23); Calcium 7.6 mg/dl (8.6-10.3); Creatinine Clr Calc Pharmacy 120.1 ml/min; Potassium 4.5 mmol/L (3.5-5.1); Sodium 137.0 mmol/L (136-145); Total Protein 5.4 gm/dl (6.0-8.3)
[2025-09-11 09:42] LABS: Albumin Level 2.4 gm/dl (3.4-5.0); Alkaline Phosphatase 78.0 U/L (34-104); Anion Gap 5.0 (3-11); Carbon Dioxide 28.0 mmol/L (21-32); Chloride 104.0 mmol/L (98-107); Glucose 206.0 mg/dl (70-99(Fasting)); Magnesium 1.9 mg/dl (1.7-2.4)
--- NOTE | 2025-09-11 10:50 | Gastroenterology Progress Note ---
Date of Service September 11, 2025 Assessment & Plan (1) Ileus: Plan Patient feels about the same. Would expect continued small bowel and colonic dilatation. - Management will be correction of his underlying medical issues and mobility. He was getting ready to work with PT today. - Can continue with miralax when able. - will continue to follow. Admission and Anticipated Discharge Date Admission Date: September 02, 2025 Supervising Physician Co-Signing Physician Notes As above no change Subjective Patient sleeping. He did awaken briefly and tells me he feels about the same. spoke with nursing, he passed a small mucoid bowel movement last night at 2100, had a large mucoid movement shortly after midnight, and a small mucoid movement this morning at 6 am. no new GI concerns. Physical Exam Gastrointestinal (Abdomen): hypoactive bowel sounds, mild diffuse tenderness, no guarding, soft. Results & Data Results & Data Vital Signs (Past 12 Hours) Vital Signs Temp Pulse Resp BP Pulse Ox O2 Del Method O2 Flow Rate 09/11/25 07:19 97.9 F 86 18 154/81 H 96 Nasal Cannula 3 09/11/25 04:08 98.1 F 88 19 129/66 93 Nasal Cannula 5 09/10/25 23:18 98.1 F 86 18 167/74 H 91 Nasal Cannula Coding Level of Care Code 07578 SUB INP/OBS CARE 10/20MIN Diagnoses Ileus K56.7
--- NOTE | 2025-09-11 11:01 | Hospitalist Progress Note ---
Date of Service September 11, 2025 Assessment & Plan (1) Acute hypoxemic respiratory failure: (2) Acute metabolic encephalopathy: (3) Ileus: (4) Enteropathogenic Escherichia coli infection: Plan This pt is a 79 yo male with a h/o chronic HFpEF, HTN, HLD, TAA, peripheral neuropathy, DMII, COPD, GERD, previous AUD now on naltrexone, chronic pain, migraines, LINDSAY on CPAP, urinary incontinence, prostate CA s/p prostatectomy, here with septic and hypovolemic shock from severe E. coli and C. diff induced colitis as well as an ileus and acute metabolic encephalopathy. #Septic shock/Acute Colitis/Brenton's/Ileus- With significant diarrhea, PCR positive for EPEC, cdiff gene positive, toxin negative but treating empirically regardless. Initially required ICU for Levophed, then quickly weaned off. CT with colitis and dilated colon now improving on subsequent KUBs but bowel dilatation still notable on 09/10. Finished a 3 day course of IV ceftriaxone for EPEC as per ID recommendation. With ongoing loose stools and abd distension starting to improve. Appreciate GI consultation-recommends against any antimotility meds and recommends giving Miralax daily for motility-MiraLAX has not been ordered daily as the patient continues to have several loose bowel movements daily. WBC count up slightly on 09/09 for unclear reason but afebrile and now normal, Procal down significantly since admission from 24 to 0.71. -continue oral vanco high dose 500mg po qid x 10 day course-ID hopes to de- escalate to 125 mg dose if ileus resolving -continue IV Flagyl for fulminant C. difficile -avoid meds that can cause ileus-dcd home baclofen, trospium, and recommend di scontinuing Mounjaro after discharge -follow CBC, BMP in the a.m. - Tolerating low fiber diet-discontinue TPN - Encourage PT/OT/mobility #Acute respiratory failure w/ hypoxemia/Acute on chronic HFpEF/LINDSAY/COPD-Had resp distress and required BiPAP, was hypoxemic-likely dye to acute on chronic HFpEF. Chest X-ray consistent with volume overload. Lasix initiated x 2 doses and had improvement. BPs remained elevated, still requiring 2LNC O2 and has dyspnea with minimal exertion -strict I/Os, daily weights, low sodium diet -dc Carias when more mobile -resumed home bumex at lower dose of 1mg po daily, but may need to increase to 2 mg daily if hypoxemia persists -continue CPAP hs-he has been unabe to tolerate this -continue albuterol nebs but change to prn -resumed home maintenance inhaler (Stiolto) and resumed home Singulair, Claritin - Check CXR in the a.m. on 09/12 #Hypokalemia/Hypophosphatemia/Hypomagnesemia-all low from GI losses, poor po intake--> much improved now with aggressive replacement, TPN -give 1 gram IV Mag to optimize mag to 2.0 -follow BMP, Mag, Phos in AM #Acute metabolic encephalopathy- secondary to septic shock, hospital delirium, occasional opioid use, electrolyte abnormalities, immobility, noncompliance with CPAP. Slowly improving but very lethargic again on AM of 09/10 and mild lethargy on 09/11 potentially after receiving Lyrica which had been held for the initial week of his hospital stay. ABG without CO2 retention on 09/10 -avoid all opioids -replete lytes -supportive care -mobilize with PT/OT -encourage CPAP use -Will now discontinue Lyrica as this seems to be causing increased lethargy #Paroxysmal atrial tachycardia-no further A-tach on tele since 09/09, was asymptomatic with these episodes. Attributed to noncompliance with CPAP and lyte abnormalities. Broke with adenosine with Cardiology. Appreciate Cardio consult -consider EP study as outpt -started diltiazem--> increase dose to 90mg po tid -started metoprolol (after home Coreg held on admission for hypotension) -f/u Cardio as outpt -encourage CPAP use #KIM- Likely prerenal in the setting of acute illness, now resolved after IVF resuscitation #Type 2 diabetes w/ peripheral neuropathy-follows with Endocrine radha CHA, A1C excellent at 5.8% - Hold tirzepatide and consider stopping for a while or altogether as can contribute to ileus -Continue Novolog SSI -home pregabalin held on admission--> resumed at lower dose of 100mg po once daily but caused significant lethargy-now discontinue Lyrica #Alcohol use disorder -in remission for 4 years, on naltrexone. Drinks 1 glass of wine occasionally. No signs of EtOH withdrawal here -resumed home naltrexone for evening of 09/10 #Hypertension/HLD-BPs low on admission and all meds held. Then BPs elevated despite starting dilt and metoprolol for PAT. Resumed terazosin and increased dilt dose-became hypotensive-terazosin stopped -Okay to increase dilt back up to 90mg po tid and eventually convert to long acting -continue metoprolol 50mg po bid -Continue to hold home terazosin 10mg po hs -continue home Zetia #Chronic migraine-no acute issues - Home topiramate on hold since admission-unclear reason -plan to resume in in the future but will hold off for now due to lethargy as topiramate can also cause [employer] depression #Thoracic aortic aneurysm-ECHO ordered by Cardio shows TAA 4.3 cm -continue good BP control and annual surveillance #GERD-no acute issues -cont home po PPI DVT Prophylaxis- SCDs, Lovenox 40mg SQ once daily Dispo-continued stay on PCU, slowly improving, PT/OT evals recommend rehab. Not medically stable for discharge yet Admission and Anticipated Discharge Date Admission Date: September 02, 2025 Subjective Patient much more alert and awake today although nursing noted him to be more lethargic after receiving his morning Lyrica. Reports his abdomen is feeling better. He had 2 bowel movements overnight, nonbloody has small amount of bright red blood in the stool during the day yesterday after I last saw him. He was able to eat and tolerate most of his low fiber diet for breakfast. Telemetry with normal sinus rhythm and rates in the 70s to 80s Physical Exam Constitutional: well developed; no acute distress Respiratory: normal respiratory effort Auscultation: + diminished lung sounds (At bases bilaterally); no crackles and no wheezes Cardiovascular: RRR, no murmur, no edema Gastrointestinal (Abdomen): Inspection/Auscultation: abdomen normal to inspection, + abdomen distended (mild) and normal bowel sounds Percussion/Palpation: abdomen soft; abdomen nontender Psychiatric: Orientation: oriented to person, oriented to place and cooperative Results & Data Results & Data Vital Signs (Past 12 Hours) Vital Signs Temp Pulse Resp BP Pulse Ox O2 Del Method O2 Flow Rate 09/11/25 07:19 36.6 C 86 18 154/81 H 96 Nasal Cannula 3 09/11/25 04:08 36.7 C 88 19 129/66 93 Nasal Cannula 5 09/10/25 23:18 36.7 C 86 18 167/74 H 91 Nasal Cannula Laboratory Results CBC, BMP, a.m. cortisol, phosphorus, magnesium, LFTs reviewed PG Care Time/CCT Total # of Minutes Spent Total Time Spent with Patient: Total time spent is greater than 50% in coordination of care (as documented) at patient's floor/unit and/or counseling patient: Coding Level of Care Code 85139 SUB INP/OBS CARE 3/50MIN Diagnoses Acute hypoxemic respiratory failure J96.01 Acute metabolic encephalopathy G93.41 Ileus K56.7 Enteropathogenic Escherichia coli infection A04.0
[2025-09-11] MEDS: MAGNESIUM SULFATE / D5W 1 GM/100 ML BAG IV ONE (12:20)
--- NOTE | 2025-09-11 12:29 | Cardiology Progress Note ---
Date of Service September 11, 2025 Assessment & Plan (1) SVT (supraventricular tachycardia): (2) (HFpEF) heart failure with preserved ejection fraction: (3) Hypertension: (4) Ascending aorta dilation: (5) Aortic regurgitation: Plan ASSESSMENT/PLAN: 1. SVT: Apparently terminated earlier this hospital stay with adenosine. [place] to be possible SVT by electrophysiology. Could also be atrial tachycardia when reviewing telemetry today. Rhythm does not appear to be atrial flutter. EP has suggested possible EP study and ablation at some point in the future, which can be considered once recovered from current noncardiac issues after follow-up in the cardiology office. Diltiazem increased to 90 mg 3 times daily on 09/09/2025 and no significant recurrence of arrhythmia since, so far. Diltiazem reduced to 60 mg 3 times daily on 09/10/2025 for mild hypotension to low normal blood pressure, which also coincided with terazosin resumption. Blood pressure improved now as the terazosin is again on hold. For recurrent arrhythmia, recommend increasing diltiazem to 90 mg 3 times daily. Continue beta-tod. He is asymptomatic with these episodes and heart rate tends to be near 120 bpm. Consider repeating ECG for sustained arrhythmia. 2. Heart failure with preserved EF: Chronic issue. He does not appear to be significantly hypervolemic. 3. Sleep apnea: Untreated sleep apnea may trigger atrial arrhythmias. Discussed the importance of compliance. 4. Dilated ascending aorta: Mildly dilated ascending aorta/root. Has had echo and CT imaging this year. Annual surveillance. Continue beta-tod. 5. Aortic regurgitation: Mild as of last year. Repeating echo as above. 6. Hypertension: Blood pressure normal today. Mildly hypotensive at times on 09/10/2025 after terazosin initiated night before an increase of diltiazem to 90 mg 3 times daily. Terazosin has since been held and diltiazem reduced by primary hospitalist service. For recurrent arrhythmia, recommend again titrating diltiazem to 90 mg 3 times daily as tolerated. 7. Ileus: As per GI and primary hospital service. 8. Disposition: Cardiology will sign off at this time. Call with further questions or concerns. On discharge, follow-up with Dr. Nuñez, his primary rehabilitation technician. Admission and Anticipated Discharge Date Admission Date: September 02, 2025 Subjective Patient seen this morning. He denies chest pain, shortness of breath, syncope, near syncope. Abdominal pain continues but slowly improving. He was unaccompanied. Physical Exam Physical Exam: Gen.: No acute distress. Alert. HEENT: Anicteric sclera. Neck: No JVD. Cardiac: Regular. No ectopy. Normal S1-S2. No murmurs, rubs, or gallops. Pulmonary: Clear to auscultation bilaterally without wheezes, rales, or rhonchi. Abdomen: Distended and mildly tender throughout. Normoactive bowel sounds. No bruits noted. Extremities: 2+ radial pulses bilaterally. 2+ posterior tibialis pulses bilaterally. No significant edema. No cyanosis. Results & Data Vital Signs (Past 12 Hours) Vital Signs Temp Pulse Resp BP Pulse Ox O2 Del Method O2 Flow Rate 09/11/25 12:09 37.3 C 93 H 20 137/83 97 Nasal Cannula 4 09/11/25 07:19 36.6 C 86 18 154/81 H 96 Nasal Cannula 3 09/11/25 04:08 36.7 C 88 19 129/66 93 Nasal Cannula 5 Intake & Output 09/09/25 09/10/25 09/11/25 09/12/25 06:59 06:59 06:59 06:59 Intake Total 2002.667 / 2002.667 3043.333 / 3043.333 2475.75 / 2475.75 100 / 100 Output Total 1355 / 1355 2927 / 2927 925 / 925 Balance 648.667 / 648.667 116.333 / 246.297 5211.75 / 1550.75 100 / 100 Weight 197 lb 12.8 oz 197 lb 15.602 oz 204 lb 9.423 oz Laboratory Results Laboratory Results - last 24 hr 09/10/25 09/10/25 09/11/25 15:45 20:16 07:24 WBC RBC Hgb Hct MCV MCH MCHC RDW Std Deviation RDW Coeff of Roni Plt Count MPV Immature Gran % (Auto) Neut % (Auto) Lymph % (Auto) [place] % (Auto) Eos % (Auto) Baso % (Auto) Neut # (Auto) Lymph # (Auto) [place] # (Auto) Eos # (Auto) Baso # (Auto) Immature Gran # (Auto) Sodium Potassium Chloride Carbon Dioxide Anion Gap BUN Creatinine Est Cr Clr Drug Dosing eGFR BUN/Creatinine Ratio Glucose POC Glucose 181 H 183 H 190 H Calcium Phosphorus Magnesium Total Bilirubin Direct Bilirubin AST ALT Alkaline Phosphatase Total Protein Albumin Cortisol AM Sample 09/11/25 09/11/25 08:48 11:35 WBC 10.06 RBC 4.01 L Hgb 11.6 L Hct 35.3 L MCV 88.0 MCH 28.9 MCHC 32.9 RDW Std Deviation 49.2 H RDW Coeff of Roni 15.3 H Plt Count 259 MPV 10.2 Immature Gran % (Auto) 1.1 Neut % (Auto) 74.1 Lymph % (Auto) 7.8 [place] % (Auto) 12.7 Eos % (Auto) 3.8 Baso % (Auto) 0.5 Neut # (Auto) 7.46 H Lymph # (Auto) 0.78 L [place] # (Auto) 1.28 H Eos # (Auto) 0.38 Baso # (Auto) 0.05 Immature Gran # (Auto) 0.11 Sodium 137 Potassium 4.5 Chloride 104 Carbon Dioxide 28 Anion Gap 5 BUN 15 Creatinine 0.58 L Est Cr Clr Drug Dosing 120.1 eGFR 99.82 BUN/Creatinine Ratio 25.9 H Glucose 206 H POC Glucose 201 H Calcium 7.6 L Phosphorus 2.9 Magnesium 1.9 Total Bilirubin 0.4 Direct Bilirubin 0.1 AST 17 ALT 14 Alkaline Phosphatase 78 Total Protein 5.4 L Albumin 2.4 L Cortisol AM Sample 18.08 Diagnostic Findings Labs reviewed and notable for normal potassium, stable renal function, mild anemia. Telemetry personally reviewed: Sinus rhythm. GI note reviewed from today. Medications Administered Current Inpatient Medications Albuterol (Albut/Ipratrop 3mg/0.5mg Neb 3 Ml Vial) 3 ml NEB Q6R PRN; Protocol PRN Reason: SOB,wheezing Stop: 10/02/25 18:59 Bumetanide (Bumetanide 1 Mg Tab) 1 mg PO QAM JOSHUA Stop: 10/10/25 08:59 Last Admin: 09/11/25 08:11 Dose: 1 mg Dextrose (Dextrose 50% 50 Ml Syringe) 25 - 50 ml IV UD PRN; Protocol PRN Reason: Hypoglycemia Protocol Stop: 10/07/25 12:04 Diclofenac Sodium (Diclofenac Sod 1% Gel 100 Gm Tube) 2 gm EXT TID JOSHUA; Protocol Stop: 10/05/25 08:59 Last Admin: 09/11/25 08:15 Dose: 2 gm Diltiazem HCl (Diltiazem Hcl 60 Mg Tab) 60 mg PO Q8H [facility] Stop: 10/10/25 12:11 Last Admin: 09/11/25 12:21 Dose: 60 mg Ezetimibe (Ezetimibe 10 Mg Tab) 10 mg PO QAM [facility] Stop: 10/10/25 08:59 Last Admin: 09/11/25 08:20 Dose: 10 mg Enoxaparin Sodium (Enoxaparin Inj 40 Mg/0.4 Ml Syr) 40 mg SQ QAM [facility] Stop: 10/10/25 08:59 Last Admin: 09/11/25 08:22 Dose: 40 mg Glucagon (Glucagon For Inj 1 Mg Vial) 1 mg SQ UD PRN; Protocol PRN Reason: Hypoglycemia Protocol Stop: 10/07/25 12:04 Glucose (Glucose 40% Gel 15 Gm Tube) 15 - 30 gm PO UD PRN; Protocol PRN Reason: Hypoglycemia Protocol Stop: 10/07/25 12:04 Glucose (Glucose 10 Tab/Tube) 4 - 8 tab PO UD PRN; Protocol PRN Reason: Hypoglycemia Protocol Stop: 10/07/25 12:04 Heparin Sodium (Beef Lung) (Heparin 10 Unit/Ml 5 Ml Flush) 5 ml FLUSH PRN PRN PRN Reason: Flush Stop: 10/08/25 12:27 Metronidazole (Flagyl) 500 mg in 100 mls @ 100 mls/hr IV Q8H [facility]; Protocol Stop: 09/12/25 14:29 Last Infusion: 09/11/25 07:44 Dose: Infused Amino Acids/Dextrose 934.5 ml/ (Nutrition (Parenteral)) 934.5 mls @ 38.94 mls/hr IV .Q24H [facility]; Protocol Stop: 09/11/25 15:59 Last Admin: 09/10/25 15:39 Dose: 38.9 mls/hr Magnesium Sulfate/Dextrose (Magnesium Sulfate / D5w) 1 gm in 100 mls @ 50 mls/hr IV ONE ONE Stop: 09/11/25 12:27 Last Admin: 09/11/25 12:20 Dose: 50 mls/hr Insulin Aspart (Insulin Aspart Per Unit Charge) 0 units SC [facility] Stop: 10/07/25 16:29 Last Admin: 09/11/25 12:14 Dose: 3 units Lidocaine (Lidocaine 5% 1 Patch) 1 patch TD [facility] Stop: 10/05/25 19:29 Last Admin: 09/11/25 08:20 Dose: 1 patch Loratadine (Loratadine 10 Mg Tab) 10 mg PO [facility] Stop: 10/10/25 08:59 Last Admin: 09/11/25 08:20 Dose: 10 mg Metoprolol Tartrate (Metoprolol Tartrate 50 Mg Tab) 50 mg PO BID [facility] Stop: 10/05/25 20:59 Last Admin: 09/11/25 08:20 Dose: 50 mg Miscellaneous (Remove Lidoderm Patch) 1 each N/A DAILY@2100 [facility] Stop: 10/05/25 20:59 Last Admin: 09/10/25 20:59 Dose: 1 each Miscellaneous (Carbohydrates For Hypoglycemia ) 15 - 30 gm PO UD PRN PRN Reason: Hypoglycemia Protocol Stop: 10/07/25 12:04 Montelukast Sodium (Montelukast Sodium 10 Mg Tablet) 10 mg PO [facility] Stop: 10/10/25 20:59 Last Admin: 09/10/25 22:09 Dose: 10 mg Naltrexone HCl (Naltrexone Hcl 50 Mg Tab) 50 mg PO [facility] Stop: 10/10/25 20:59 Last Admin: 09/10/25 20:57 Dose: 50 mg Ondansetron HCl (Ondansetron Inj 2 Mg/Ml 2 Ml Vial) 4 mg IV Q6H PRN PRN Reason: Nausea And Vomiting Stop: 10/03/25 14:12 Last Admin: 09/11/25 07:37 Dose: 4 mg Pantoprazole Sodium (Pantoprazole 40 Mg Tab) 40 mg PO [facility] Stop: 10/10/25 08:59 Last Admin: 09/11/25 08:21 Dose: 40 mg Terazosin HCl (Terazosin Hcl 5 Mg Cap) 10 mg PO [facility] Stop: 10/09/25 22:09 Last Admin: 09/09/25 23:02 Dose: 10 mg Thiamine HCl (Thiamine Hcl 100 Mg Tab) 300 mg PO BID [facility] Stop: 10/10/25 08:59 Last Admin: 09/11/25 09:47 Dose: 300 mg Umeclidinium/Vilanterol (Umeclidinium/Vilanterol 62.5/25mcg 7 Puffs/Inhaler) 1 puffs INH QAM [facility] Stop: 10/10/25 08:59 Last Admin: 09/11/25 08:22 Dose: 1 puffs Vancomycin HCl (Vancomycin Hcl 250 Mg Cap) 500 mg PO Q6 [facility] Stop: 09/12/25 17:59 Last Admin: 09/11/25 12:20 Dose: 500 mg PG Care Time/CCT Total # of Minutes Spent Total Time Spent with Patient: Total time spent is greater than 50% in coordination of care (as documented) at patient's floor/unit and/or counseling patient: Coding Level of Care Code 89418 SUB INP/OBS CARE 3/50MIN Diagnoses SVT (supraventricular tachycardia) I47.10 (HFpEF) heart failure with preserved ejection fraction I50.30 Hypertension I10 Ascending aorta dilation I77.810 Aortic regurgitation I35.1
[2025-09-12 05:48] LABS: Hematocrit (blood only) 31.7 % (42.0-52.0); Hemoglobin 10.4 g/dL (14.0-18.0); Immature Granulocytes # (auto) 0.09 K/uL (0.01-0.20); Immature Granulocytes % (auto) 1.0 %; Mean Corpuscular Hemoglobin 28.9 pg (25.0-34.0); Mean Corpuscular Volume 88.1 fL (80.0-100.0); Platelet Count 304 K/uL (130-400); RDW Standard Deviation 49.1 fL (36.4-46.3); Red Blood Count 3.60 M/uL (4.70-6.10); White Blood Count 8.60 K/ul (4.8-10.8)
[2025-09-12 06:04] LABS: Alanine Aminotransferase 14.0 U/L (7-52); Albumin Globulin Ratio 0.7 (0.9-2); Albumin Level 2.2 gm/dl (3.4-5.0); Alkaline Phosphatase 65.0 U/L (34-104); Anion Gap 2.0 (3-11); Bilirubin,Total 0.4 mg/dl (0.2-1.0); Blood Urea Nitrogen 13.0 mg/dl (6-23); Calcium 7.4 mg/dl (8.6-10.3); Carbon Dioxide 31.0 mmol/L (21-32); Chloride 102.0 mmol/L (98-107); Creatinine Clr Calc Pharmacy 119.8 ml/min; Globulin 3.0 gm/dl (2.5-4.0); Glucose 168.0 mg/dl (70-99(Fasting)); Magnesium 1.7 mg/dl (1.7-2.4); Potassium 4.5 mmol/L (3.5-5.1); Sodium 135.0 mmol/L (136-145); Total Protein 5.2 gm/dl (6.0-8.3)
--- NOTE | 2025-09-12 07:36 | XRay Report ---
EXAM: XR chest 1V portable CLINICAL HISTORY: Follow-up pleural effusions TECHNIQUE: An X-ray image of the chest is obtained in AP projection. COMPARISON: CR 09/06/2025. FINDINGS: Right PICC seen with tip reaching right side of the heart Pulmonary Parenchyma: Increased bronchovascular markings in the bilateral suprahilar region seen suggesting congestive changes versus less likely infective like bronchitis changes Focal opacity seen in the right cardiophrenic angle likely a prominent congested pulmonary vessel or less likely focal consoildation Blunting both costophrenic angles represent bilateral mild pleural effusion or less likely pleural thickening Heart and Mediastinum: Heart size and shape are normal. Slight widening of the superior mediastinum seen likely due to the AP projection Bony Thorax: Bony thorax appears intact without fractures or deformities. Spinal fixation seen in the reviewed lower cervical spine Soft Tissues: Soft tissues overlying the chest wall are unremarkable. IMPRESSION: 1. Right PICC seen with tip reaching right side of the heart 2. Mild bilateral pleural effusion and pulmonary congestive changes/ lower zones opacities, showing interval improvement as compared to prior of 09/06/2025, Electronically signed by Brody Sanchez 09-12-2025 07:35 AM
[2025-09-12] MEDS ORDERED: BUMETANIDE 1 MG TAB PO SCH (09:00)
[2025-09-12] MEDS: BUMETANIDE 1 MG TAB PO ONE (09:05)
--- NOTE | 2025-09-12 09:56 | Infectious Disease Progress Nt ---
Date of Service September 12, 2025 Assessment & Plan (1) Enteropathogenic Escherichia coli infection: (2) C. difficile colitis: Plan Problems: #EPEC #? C diff #Ileus #Abdominal pain #Shock Micro: 09/02 UCx: NG 09/02 BCx x2: NG 09/02 Stool pathogen panel: + EPEC, C diff gene +, toxin - Abx: PO vanc 09/02 - present Metronidazole 09/02 - present Ceftriaxone 09/03 - 09/05 Cefepime 09/02 - 09/03 IV vanc 09/02 - 09/03 79 yo M with history of ischemic cardiomyopathy, HFpEF, PAD, COPD with emphysema, thoracic aortic aneurysm, LINDSAY, degenerative back disease, history of recurrent multifocal pneumonia, HTN with labile BPs, history of alcohol dependence, migraine who presented on 09/02 with abrupt onset confusion, weakness, found to have colitis, sepsis. Per his , he was in his usual state of health the day prior to presentation. Overnight around 3am, pt went to the bathroom, had cramps and dry heaving. A few hours later, pt attempted to get up to use the bathroom again but was unable to do so independently and needed assistance from his . She reports he had a small amount of loose stool at that time, no blood noted in the stool. He was so weak that he was unable to get back to bed independently. EMS was called, and noted pt to be febrile to 102, hypotensive, hypoxic. Was placed on 3 L NC. On presentation, pt was afebrile, HR 120, BP 70/54. Did later become febrile to 38. Labs showed WBC 9.58, Cr 1.45, lactate 1.7 --> 2.8, procalcitonin 18.4. UA with 0-5 WBCs. RVP negative. CTAP with IV contrast showed moderate circumferential wall thickening of mid to distal descending and proximal to mid sigmoid colon, associated inflammation, findings representing a nonspecific colitis, possibly stercoral. Infectious or ischemic colitis also within differential. Large amount of stool within the colon and rectum. CTA chest with no PE, dependent airspace opacities favor atelectasis on top of chronic scarring, no airspace consolidation typical for pneumonia. Pt given IVF, started on vanc and cefepime. Was hypotensive despite fluid resuscitation, so admitted to ICU. Briefly on Levophed in ER. Stool PCR panel positive for EPEC and C diff gene, negative for C diff toxin. Rectal tube placed 09/02. Pt continued with elevated temps, last fever 09/03 AM. On evaluation 09/03, pt reported continued severe pain from his chest down to his pelvis, slightly improved from admission. He feels this pain is in his muscle. Thinks his diarrhea is improving, and he is not having abdominal cramping as much. reports he had C diff years ago. His denies diarrhea, and states she eats mostly the same things as her , aside from some fruits that her eats. KUB repeated 09/03, showing increase in gaseous distension of small and large bowel, likely related to colitis on CT, however distal colonic obstruction difficult to completely exclude. Large amount of poorly formed stool throughout colon and rectum. CTAP repeated 09/03 PM, which showed excess stool burden in the rectum with upstream colonic distension up to 7 cm concerning for obstruction. GI consulted, noted that pt has been moving his bowels. They are concerned for [place] after infectious enteritis. Discussion: EPEC is typically managed with supportive care, although antibiotics may be used in severe, bloody, or persistent diarrhea--treated with ceftriaxone x 3 days given pt's persistent fevers, diarrhea. C diff PCR positive, toxin negative could indicate C diff colonization rather than infection, but reasonable to treat given diarrhea. Administering as high dose PO vanc and IV flagyl in the setting of ileus. Recommendations: - With improvement, can de-escalate to PO vanc 125 mg QID through 09/15 to complete a total 14 day course. Can discontinue metronidazole. Will sign off Admission and Anticipated Discharge Date Admission Date: September 02, 2025 Subjective This patient recommendation is based on a telemedicine consult request which was completed asynchronously through chart review and information provided by the primary physician. The patient was not seen or examined today. The evaluation is consultative in nature and all patient care and treatment decisions can either be accepted or rejected by the patient's primary hospital-based treating physician using their own independent medical judgment for their patient. Time Spent Reviewing Chart: 11 - 20 minutes No acute events Afebrile without leukocytosis tolerating PO intake Results & Data Vital Signs (Past 12 Hours) Vital Signs Temp Pulse Pulse Resp BP Pulse Ox O2 Del Method 09/12/25 07:44 37.0 C 87 20 134/71 95 Nasal Cannula 09/12/25 07:00 73 09/12/25 02:46 37.0 C 75 19 140/76 94 Nasal Cannula 09/11/25 22:48 36.8 C 92 H 20 140/92 96 Nasal Cannula O2 Flow Rate 09/12/25 07:44 3 09/12/25 07:00 09/12/25 02:46 3 09/11/25 22:48 3
[2025-09-12] MEDS: VANCOMYCIN HCL 250 MG CAP PO SCH (10:16)
[2025-09-12] MEDS: VANCOMYCIN HCL 125 MG CAP PO SCH (11:46)
[2025-09-12] MEDS ORDERED: VANCOMYCIN HCL 250 MG CAP PO SCH (12:00)
--- NOTE | 2025-09-12 13:48 | Hospitalist Progress Note ---
Date of Service September 12, 2025 Assessment & Plan (1) Acute hypoxemic respiratory failure: (2) Acute metabolic encephalopathy: (3) Ileus: (4) Enteropathogenic Escherichia coli infection: Plan This pt is a 79 yo male with a h/o chronic HFpEF, HTN, HLD, TAA, peripheral neuropathy, DMII, COPD, GERD, previous AUD now on naltrexone, chronic pain, migraines, LINDSAY on CPAP, urinary incontinence, prostate CA s/p prostatectomy, here with septic and hypovolemic shock from severe E. coli and C. diff induced colitis as well as an ileus and acute metabolic encephalopathy, PAT. #Septic shock/Acute Colitis/Gustavo's/Ileus- With significant diarrhea, PCR positive for EPEC, cdiff gene positive, toxin negative but treating empirically regardless. Initially required ICU for Levophed, then quickly weaned off. CT with colitis and dilated colon now improving on subsequent KUBs but bowel dilatation still notable on 09/10. Finished a 3 day course of IV ceftriaxone for EPEC as per ID recommendation. With ongoing loose stools and abd distension continuing to improve. Was on TPN x 3 days, now tolerating low fiber diet with improving intake. Appreciate GI consultation-recommends against any antimotility meds and recommends giving Miralax daily for motility-MiraLAX has not been ordered daily as he continues to have several loose bowel movements daily. WBC count up slightly on 09/09 for unclear reason but afebrile and now normal, Procal down significantly since admission from 24 to 0.71. -received high dose oral vanco 500mg po qid x 10 days and now de-escalate to 125 mg po qid x 4 more days through 09/15 as per ID -receieved 10 days of IV Flagyl for fulminant C. difficile--> now dc -avoid meds that can cause ileus-dcd home baclofen, trospium, and recommend discontinuing Mounjaro after discharge -follow CBC, BMP, mag in the a.m. - Encourage PT/OT/mobility #Acute respiratory failure w/ hypoxemia/Acute on chronic HFpEF/LINDSAY/COPD-Had resp distress and required BiPAP, was hypoxemic-likely dye to acute on chronic HFpEF. Chest X-ray consistent with volume overload. Lasix initiated x 2 doses and had improvement. BPs remained elevated, still requiring 4LNC O2 and has dyspnea with minimal exertion. CXR 09/12 with less fluid overload, pl effusions smaller -strict I/Os, daily weights, low sodium diet -dc Carias 09/12 -increase back to home bumex 2 mg po daily -continue CPAP hs-he has been unable to tolerate this but will try -continue albuterol nebs prn -continue home maintenance inhaler (Stiolto), home Singulair, Claritin -follow CXR periodically until resolution #Hypokalemia/Hypophosphatemia/Hypomagnesemia-all low from GI losses, poor po intake--> much improved now with aggressive replacement, TPN, increasing po intake. Mag still not optimal given ongoing diarrhea -give 2 grams IV Mag to optimize mag to 2.0 -follow BMP, Mag in AM #Acute metabolic encephalopathy- secondary to septic shock, hospital delirium, occasional opioid use, electrolyte abnormalities, immobility, noncompliance with CPAP. Worsened after resuming Lyrica from home even at a lower dose. Lyrica stopped and now much improved. ABG without CO2 retention on 09/10 -avoid all opioids -replete lytes -supportive care -mobilize with PT/OT -encourage CPAP use -would not resume home Lyrica #Paroxysmal atrial tachycardia-no further A-tach on tele since 09/09, was asym ptomatic with these episodes. Attributed to noncompliance with CPAP and lyte abnormalities. Broke with adenosine with Cardiology. Appreciate Cardio consult -consider EP study as outpt -started diltiazem--> increased dose to 90mg po tid -plan to convert to Cardizem CD on discharge -started metoprolol (after home Coreg held on admission for hypotension)-convert o Toprol XL on dc -f/u Cardio as outpt -encourage CPAP use #KIM- Likely prerenal in the setting of acute illness, now resolved after IVF resuscitation #Type 2 diabetes w/ peripheral neuropathy-follows with Endocrine SEMAJ, radha Bower, A1C excellent at 5.8% - Hold tirzepatide and consider stopping for a while or altogether as can contribute to ileus -Continue Novolog SSI -home pregabalin held on admission--> resumed at lower dose of 100mg po once daily but caused significant lethargy- discontinued Lyrica #Alcohol use disorder -in remission for 4 years, on naltrexone. Drinks 1 glass of wine occasionally. No signs of EtOH withdrawal here -resumed home naltrexone 09/10 #Hypertension/HLD-BPs low on admission and all meds held. Then BPs elevated despite starting dilt and metoprolol for PAT. Resumed terazosin and increased dilt dose-became hypotensive-terazosin stopped -Continue dilt 90mg po tid and eventually convert to long acting -continue metoprolol 50mg po bid and convert to XL -Continue to hold home terazosin 10mg po hs -may need to resume at lower dose if has issues with urine retention after Carias removed -continue home Zetia #Chronic migraine-no acute issues - Home topiramate on hold since admission-unclear reason -plan to resume in in the future but will hold off for now due to lethargy as topiramate can also cause [employer] depression #Thoracic aortic aneurysm-ECHO ordered by Cardio shows TAA 4.3 cm -continue good BP control and annual surveillance #GERD-no acute issues -cont home po PPI DVT Prophylaxis- SCDs, Lovenox 40mg SQ once daily Dispo-Improving, PT/OT evals recommend rehab. He ist medically stable for discharge -to apply for insurance auth for [facility] 09/12 but not likely to get approved as per Case Man--> likely dc to SNF at [place] vs other in 1-2 days Admission and Anticipated Discharge Date Admission Date: September 02, 2025 Subjective Pt feeling better today, less drowsy, denies abd pain. Having large loose stools x 2 thus far. No nausea, appetite poor but eating some low fiber diet. He would like to get his Carias out. Stood up twice at bedside with PT. Tele with NSR rates 70s, no AT Physical Exam Constitutional: well developed; no acute distress Respiratory: normal respiratory effort Auscultation: lungs clear to auscultation bilaterally and + diminished lung sounds (At bases bilaterally); no crackles and no wheezes Cardiovascular: RRR, no murmur, no edema Gastrointestinal (Abdomen): Inspection/Auscultation: abdomen normal to inspection, + abdomen distended (mild) and normal bowel sounds Percussion/Palpation: abdomen soft; abdomen nontender Psychiatric: Orientation: alert, oriented x 3 and cooperative Results & Data Results & Data Vital Signs (Past 12 Hours) Vital Signs Temp Pulse Pulse Resp BP Pulse Ox O2 Del Method 09/12/25 11:19 36.8 C 80 19 167/80 H 97 Nasal Cannula 09/12/25 08:00 Nasal Cannula 09/12/25 07:44 37.0 C 87 20 134/71 95 Nasal Cannula 09/12/25 07:00 73 09/12/25 02:46 37.0 C 75 19 140/76 94 Nasal Cannula O2 Flow Rate 09/12/25 11:19 3 09/12/25 08:00 3 09/12/25 07:44 3 09/12/25 07:00 09/12/25 02:46 3 Laboratory Results CBC, BMP, Mag reviewed PG Care Time/CCT Total # of Minutes Spent Total Time Spent with Patient: Total time spent is greater than 50% in coordination of care (as documented) at patient's floor/unit and/or counseling patient: Coding Level of Care Code 91626 SUB INP/OBS CARE 3/50MIN Diagnoses Acute hypoxemic respiratory failure J96.01 Acute metabolic encephalopathy G93.41 Ileus K56.7 Enteropathogenic Escherichia coli infection A04.0
[2025-09-12] MEDS: MAGNESIUM SULFATE / D5W 1 GM/100 ML BAG IV SCH (13:54)
[2025-09-13] MEDS: BUMETANIDE 1 MG TAB PO SCH (07:55)
[2025-09-13 10:25] LABS: Hematocrit (blood only) 32.8 % (42.0-52.0); Hemoglobin 11.2 g/dL (14.0-18.0); Immature Granulocytes # (auto) 0.07 K/uL (0.01-0.20); Immature Granulocytes % (auto) 0.8 %; Mean Corpuscular Hemoglobin 29.5 pg (25.0-34.0); Mean Corpuscular Volume 86.3 fL (80.0-100.0); Platelet Count 405 K/uL (130-400); RDW Standard Deviation 46.2 fL (36.4-46.3); Red Blood Count 3.80 M/uL (4.70-6.10); White Blood Count 8.72 K/ul (4.8-10.8)
[2025-09-13 10:41] LABS: Anion Gap 3.0 (3-11); Blood Urea Nitrogen 10.0 mg/dl (6-23); Calcium 7.7 mg/dl (8.6-10.3); Carbon Dioxide 30.0 mmol/L (21-32); Chloride 98.0 mmol/L (98-107); Creatinine Clr Calc Pharmacy 119.6 ml/min; Glucose 180.0 mg/dl (70-99(Fasting)); Magnesium 1.7 mg/dl (1.7-2.4); Potassium 3.9 mmol/L (3.5-5.1); Sodium 131.0 mmol/L (136-145)
[2025-09-13] MEDS: CALCIUM CARBONATE 500 MG CHEWABLE TAB PO SCH (11:08)
[2025-09-13] MEDS: MAGNESIUM SULFATE / D5W 1 GM/100 ML BAG IV SCH (11:08)
--- NOTE | 2025-09-13 16:44 | Hospitalist Progress Note ---
Date of Service September 13, 2025 Assessment & Plan (1) Acute hypoxemic respiratory failure: (2) Acute metabolic encephalopathy: (3) Ileus: (4) Enteropathogenic Escherichia coli infection: Plan This pt is a 79 yo male with a h/o chronic HFpEF, HTN, HLD, TAA, peripheral neuropathy, DMII, COPD, GERD, previous AUD now on naltrexone, chronic pain, migraines, LINDSAY on CPAP, urinary incontinence, prostate CA s/p prostatectomy, here with septic and hypovolemic shock from severe E. coli and C. diff induced colitis as well as an ileus and acute metabolic encephalopathy, PAT. #Septic shock/Acute Colitis/Gustavo's/Ileus- With significant diarrhea, PCR positive for EPEC, cdiff gene positive, toxin negative but treating empirically regardless. Initially required ICU for Levophed, then quickly weaned off. CT with colitis and dilated colon now improving on subsequent KUBs but bowel dilatation still notable on 09/10. Finished a 3 day course of IV ceftriaxone for EPEC as per ID recommendation. With ongoing loose stools and abd distension continuing to improve. Was on TPN x 3 days, now tolerating low fiber diet with improving intake. Appreciate GI consultation-recommends against any antimotility meds and recommends giving Miralax daily for motility-MiraLAX has not been ordered daily as he continues to have several loose bowel movements daily. WBC count up slightly on 09/09 for unclear reason but afebrile and now normal, Procal down significantly since admission from 24 to 0.71. -received high dose oral vanco 500mg po qid and IV Flagyl x 10 days and now de- escalated to vancomycin 125 mg po qid x 4 more days through 09/15 as per ID -avoid meds that can cause ileus-dcd home baclofen, trospium, and recommend discontinuing Mounjaro after discharge -follow CBC, BMP, mag in the a.m. and keep electrolytes replete - Encourage PT/OT/mobility #Acute respiratory failure w/ hypoxemia/Acute on chronic HFpEF/LINDSAY/COPD-Had resp distress and required BiPAP, was hypoxemic-likely dye to acute on chronic HFpEF. Chest X-ray consistent with volume overload. Lasix initiated x 2 doses and had improvement. BPs were elevated and now improved, still requiring supplemental O2 but weaned to 2 LNC O2. Still has dyspnea with minimal exertion. CXR 09/12 with less fluid overload, pl effusions smaller. Discontinued Carias catheter 09/12 and he is incontinent to urine but voiding completely. Weight is down several kilograms -strict I/Os, daily weights, low sodium diet -Continue home bumex 2 mg po daily -continue CPAP hs-he has been unable to tolerate this but will try -continue albuterol nebs prn -continue home maintenance inhaler (Stiolto), home Singulair, Claritin -follow CXR periodically until resolution #Hypokalemia/Hypophosphatemia/Hypomagnesemia-all low from GI losses, poor po intake--> much improved now with aggressive replacement, TPN, increasing po intake. Mag still not optimal given ongoing diarrhea -give 2 grams IV Mag to optimize mag to 2.0 -follow BMP, Mag in AM #Hyponatremia-sodium down to 131 after increasing diuretic dose. Remains somewhat volume overloaded so we will continue with Bumex - Follow BMP #Acute metabolic encephalopathy- secondary to septic shock, hospital delirium, occasional opioid use, electrolyte abnormalities, immobility, noncompliance with CPAP. Worsened after resuming Lyrica from home even at a lower dose. Lyrica stopped and now much improved. ABG without CO2 retention on 09/10. Continues to improve daily -avoid all opioids -replete lytes -supportive care -mobilize with PT/OT -encourage CPAP use -would not resume home Lyrica #Paroxysmal atrial tachycardia-no further A-tach on tele since 09/09, was asymptomatic with these episodes. Attributed to noncompliance with CPAP and lyte abnormalities. Broke with adenosine with Cardiology. Appreciate Cardio consult -consider EP study as outpt -started diltiazem--> increased dose to 90mg po tid -plan to convert to Cardizem CD on discharge -started metoprolol (after home Coreg held on admission for hypotension)-convert o Toprol XL on dc -f/u Cardio as outpt -encourage CPAP use #KIM- Likely prerenal in the setting of acute illness, now resolved after IVF resuscitation #Type 2 diabetes w/ peripheral neuropathy-follows with Endocrine PA, on Mounjaro, A1C excellent at 5.8% - Hold tirzepatide and consider stopping for a while or altogether as can contribute to ileus -Continue Novolog SSI -home pregabalin held on admission--> resumed at lower dose of 100mg po once daily but caused significant lethargy- discontinued Lyrica #Alcohol use disorder -in remission for 4 years, on naltrexone. Drinks 1 glass of wine occasionally. No signs of EtOH withdrawal here -resumed home naltrexone 09/10 #Hypertension/HLD-BPs low on admission and all meds held. Then BPs elevated despite starting dilt and metoprolol for PAT. 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 He is medically stable for discharge -awaiting insurance auth for [facility] but not likely to get approved as per Case Man--> likely dc to SNF at [facility] Admission and Anticipated Discharge Date Admission Date: September 02, 2025 Subjective Patient still having loose stools today. He worked with physical therapy and is wiped out. When I came in the room he did not have his oxygen on and his pulse ox was 85% on room air. I placed him back on 2 L and pulse ox came up to 92%. He feels short of breath just with talking but is also lying flat on his back. He is eating somewhat. He seems less confused. Telemetry with normal sinus rhythm and PVCs with rates in the 70s to 80s. I discussed his care with manager of case management. I also discussed his care with his at the bedside Physical Exam Constitutional: well developed; no acute distress Respiratory: normal respiratory effort Auscultation: lungs clear to auscultation bilaterally and + diminished lung sounds (At bases bilaterally); no crackles and no wheezes Cardiovascular: RRR, no murmur, no edema Gastrointestinal (Abdomen): Inspection/Auscultation: abdomen normal to inspection, + abdomen distended (mild) and normal bowel sounds Percussion/Palpation: + abdomen tender (Mild on left side without guarding or rebound) and abdomen soft Psychiatric: Orientation: alert, oriented x 3, oriented to person, oriented to place and cooperative Results & Data Results & Data Vital Signs (Past 12 Hours) Vital Signs Temp Pulse Pulse Resp BP Pulse Ox O2 Del Method 09/13/25 15:58 36.4 C L 74 17 140/78 94 Nasal Cannula 09/13/25 14:43 79 09/13/25 10:33 36.6 C 80 17 148/87 H 96 Nasal Cannula 09/13/25 08:05 Nasal Cannula 09/13/25 07:22 74 09/13/25 07:08 36.5 C 72 19 144/71 H 93 Nasal Cannula O2 Flow Rate 09/13/25 15:58 3 09/13/25 14:43 09/13/25 10:33 3 09/13/25 08:05 3 09/13/25 07:22 09/13/25 07:08 3 Laboratory Results CBC, BMP, magnesium reviewed PG Care Time/CCT Total # of Minutes Spent Total Time Spent with Patient: Total time spent is greater than 50% in coordination of care (as documented) at patient's floor/unit and/or counseling patient: Coding Level of Care Code 50833 SUB INP/OBS CARE 2/35MIN Diagnoses Acute hypoxemic respiratory failure J96.01 Acute metabolic encephalopathy G93.41 Ileus K56.7 Enteropathogenic Escherichia coli infection A04.0
[2025-09-14 06:15] LABS: Hematocrit (blood only) 32.0 % (42.0-52.0); Hemoglobin 11.2 g/dL (14.0-18.0); Immature Granulocytes # (auto) 0.06 K/uL (0.01-0.20); Immature Granulocytes % (auto) 0.8 %; Mean Corpuscular Hemoglobin 29.6 pg (25.0-34.0); Mean Corpuscular Volume 84.7 fL (80.0-100.0); Platelet Count 403 K/uL (130-400); RDW Standard Deviation 43.8 fL (36.4-46.3); Red Blood Count 3.78 M/uL (4.70-6.10); White Blood Count 7.46 K/ul (4.8-10.8)
[2025-09-14 06:41] LABS: Anion Gap 6.0 (3-11); Blood Urea Nitrogen 8.0 mg/dl (6-23); Calcium 7.9 mg/dl (8.6-10.3); Carbon Dioxide 32.0 mmol/L (21-32); Chloride 99.0 mmol/L (98-107); Creatinine Clr Calc Pharmacy 136.0 ml/min; Glucose 166.0 mg/dl (70-99(Fasting)); Magnesium 1.8 mg/dl (1.7-2.4); Potassium 3.9 mmol/L (3.5-5.1); Sodium 137.0 mmol/L (136-145)
[2025-09-14] MEDS: MAGNESIUM SULFATE / D5W 1 GM/100 ML BAG IV ONE (08:20)
[2025-09-14] MEDS: POTASSIUM CHLORIDE 10 MEQ TABCR PO SCH (08:20)
--- NOTE | 2025-09-14 19:12 | Hospitalist Progress Note ---
Date of Service September 14, 2025 Assessment & Plan (1) Acute hypoxemic respiratory failure: (2) Acute metabolic encephalopathy: (3) Ileus: (4) Enteropathogenic Escherichia coli infection: Plan This pt is a 79 yo male with a h/o chronic HFpEF, HTN, HLD, TAA, peripheral neuropathy, DMII, COPD, GERD, previous AUD now on naltrexone, chronic pain, migraines, LINDSAY on CPAP, urinary incontinence, prostate CA s/p prostatectomy, here with septic and hypovolemic shock from severe E. coli and C. diff induced colitis as well as an ileus and acute metabolic encephalopathy, PAT. #Septic shock/Acute Colitis/Gustavo's/Ileus- With significant diarrhea, PCR positive for EPEC, cdiff gene positive, toxin negative but treating empirically regardless. Initially required ICU for Levophed, then quickly weaned off. CT with colitis and dilated colon now improving on subsequent KUBs but bowel dilatation still notable on 09/10. Finished a 3 day course of IV ceftriaxone for EPEC as per ID recommendation. With ongoing loose stools and abd distension continuing to improve. Was on TPN x 3 days, now tolerating low fiber diet with improving intake. Appreciate GI consultation-recommends against any antimotility meds and recommends giving Miralax daily for motility-MiraLAX has not been ordered daily as he continues to have several loose bowel movements daily. -received high dose oral vanco 500mg po qid and IV Flagyl x 10 days and now de- escalated to vancomycin 125 mg po qid x 4 more days through 09/15 as per ID -avoid meds that can cause ileus-dcd home baclofen, trospium, and recommend discontinuing Mounjaro after discharge -follow CBC, BMP, mag in the a.m. and keep electrolytes replete - Encourage PT/OT/mobility - Add trial of cholestyramine 4 g p.o. daily to thicken up his stool #Acute respiratory failure w/ hypoxemia/Acute on chronic HFpEF/LINDSAY/COPD-Had resp distress and required BiPAP, was hypoxemic-likely due to acute on chronic HFpEF. Chest X-ray consistent with volume overload. Lasix initiated x 2 doses and now started on Bumex 2 mg p.o. daily. BPs were elevated and now improved, still requiring supplemental O2 but now weaned to 1 LNC O2. Still has dyspnea with exertion but improving. CXR 09/12 with less fluid overload, pl effusions smaller. Discontinued Carias catheter 09/12 and he is incontinent to urine but voiding completely. Weight is down 5-6 kilograms, more back to his baseline weight -strict I/Os, daily weights, low sodium diet -Continue home bumex 2 mg po daily -continue CPAP hs-he has been unable to tolerate this but will try on the evening of 09/14 along with the sleep aid-add Lyrica 50 mg p.o. at bedtime -continue albuterol nebs prn -continue home maintenance inhaler (Stiolto), home Singulair, Claritin -follow CXR periodically until resolution #Hypokalemia/Hypophosphatemia/Hypomagnesemia-all low from GI losses, poor po intake--> much improved now with aggressive replacement, TPN, increasing po intake. Mag still not optimal given ongoing diarrhea -give 1 grams IV Mag to optimize mag to 2.0 - Give potassium chloride 10 mEq p.o. once daily -follow BMP, Mag in AM #Hyponatremia-sodium down to 131 secondary to volume overload and now improved with diuresis - Continue with Bumex - Follow BMP #Acute metabolic encephalopathy- secondary to septic shock, hospital delirium, occasional opioid use, electrolyte abnormalities, immobility, noncompliance with CPAP. Worsened after resuming Lyrica 100 mg daily. Lyrica stopped and now much improved. ABG without CO2 retention on 09/10. He is now completely back to baseline mentation -avoid all opioids -replete lytes -supportive care -mobilize with PT/OT -encourage CPAP use -Will resume Lyrica at bedtime only at a much lower dose of 50 mg at bedtime #Paroxysmal atrial tachycardia-no further A-tach on tele since 09/09, was asymptomatic with these episodes. Attributed to noncompliance with CPAP and lyte abnormalities. Broke with adenosine with Cardiology. Appreciate Cardio consult -consider EP study as outpt -started diltiazem--> increased dose to 90mg po tid -plan to convert to Cardizem CD on discharge -started metoprolol (after home Coreg held on admission for hypotension)-convert to Toprol XL on dc -f/u Cardio as outpt -encourage CPAP use #KIM- Likely prerenal in the setting of acute illness, now resolved after IVF resuscitation #Type 2 diabetes w/ peripheral neuropathy-follows with Endocrine PA, on Mounjaro, A1C excellent at 5.8% - Hold tirzepatide and consider stopping for a while or altogether as can contribute to ileus -Continue Novolog SSI -home pregabalin held on admission--> resumed at lower dose of 100mg po once daily but caused significant lethargy- discontinued Lyrica but will resume again at a lower dose of 50 mg at bedtime #Alcohol use disorder -in remission for 4 years, on naltrexone. Drinks 1 glass of wine occasionally. No signs of EtOH withdrawal here -resumed home naltrexone 09/10 #Hypertension/HLD-BPs low on admission and all meds held. Then BPs elevated despite starting dilt and metoprolol for PAT. 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 He is medically stable for discharge -awaiting insurance auth for [facility] but not likely to get approved as per Case Man--> likely dc to SNF at [facility] on Tuesday or Tuesday Admission and Anticipated Discharge Date Admission Date: September 02, 2025 Subjective Patient is much more awake and alert today. He has not been out of bed. He continues to have loose stools and some mild abdominal distention. No nausea and he is eating more today. He reports that he is not able to sleep at all at night. He is willing to try using his CPAP from home for tonight along with a sleep aid. Telemetry with normal sinus rhythm, PACs, rates in the 60s to 70s Physical Exam Constitutional: well developed; no acute distress Respiratory: normal respiratory effort; not tachypneic Auscultation: lungs clear to auscultation bilaterally and + diminished lung sounds (At bases bilaterally); no crackles and no wheezes Cardiovascular: RRR, no murmur, no edema Gastrointestinal (Abdomen): Inspection/Auscultation: abdomen normal to inspection, + abdomen distended (mild) and normal bowel sounds Percussion/Palpation: + abdomen tender (Mild on left side without guarding or rebound) and abdomen soft Psychiatric: Orientation: alert, oriented x 3 and cooperative Results & Data Results & Data Vital Signs (Past 12 Hours) Vital Signs Temp Pulse Resp BP Pulse Ox O2 Del Method O2 Flow Rate 09/14/25 15:21 36.8 C 79 20 174/85 H 92 Nasal Cannula 1 09/14/25 10:39 36.7 C 77 17 153/82 H 93 Nasal Cannula 2 09/14/25 07:53 Nasal Cannula 3 09/14/25 07:31 36.6 C 75 18 156/89 H 91 Room Air Laboratory Results CBC, BMP, magnesium reviewed PG Care Time/CCT Total # of Minutes Spent Total Time Spent with Patient: Total time spent is greater than 50% in coordination of care (as documented) at patient's floor/unit and/or counseling patient: Coding Level of Care Code 66923 SUB INP/OBS CARE 2/35MIN Diagnoses Acute hypoxemic respiratory failure J96.01 Acute metabolic encephalopathy G93.41 Ileus K56.7 Enteropathogenic Escherichia coli infection A04.0
[2025-09-14] MEDS: PREGABALIN 50 MG CAP PO SCH (20:20)
[2025-09-15 06:49] LABS: Anion Gap 4.0 (3-11); Blood Urea Nitrogen 9.0 mg/dl (6-23); Calcium 7.8 mg/dl (8.6-10.3); Carbon Dioxide 30.0 mmol/L (21-32); Chloride 100.0 mmol/L (98-107); Creatinine Clr Calc Pharmacy 123.3 ml/min; Glucose 234.0 mg/dl (70-99(Fasting)); Magnesium 1.7 mg/dl (1.7-2.4); Potassium 3.7 mmol/L (3.5-5.1); Sodium 134.0 mmol/L (136-145)
[2025-09-15] MEDS: MAGNESIUM SULFATE / D5W 1 GM/100 ML BAG IV SCH (08:30)
[2025-09-15] MEDS: CHOLESTYRAMINE LIGHT 4 GM PKT PO SCH (08:39)
[2025-09-15] MEDS: POTASSIUM CHLORIDE 10 MEQ TABCR PO SCH (08:48)
--- NOTE | 2025-09-15 12:26 | Hospitalist Progress Note ---
Date of Service September 15, 2025 Assessment & Plan (1) Acute hypoxemic respiratory failure: (2) Acute metabolic encephalopathy: (3) Ileus: (4) Enteropathogenic Escherichia coli infection: Plan This pt is a 79 yo male with a h/o chronic HFpEF, HTN, HLD, TAA, peripheral neuropathy, DMII, COPD, GERD, previous AUD now on naltrexone, chronic pain, migraines, LINDSAY on CPAP, urinary incontinence, prostate CA s/p prostatectomy, here with septic and hypovolemic shock from severe E. coli and C. diff induced colitis as well as an ileus and acute metabolic encephalopathy, PAT. #Septic shock/Acute Colitis/Gustavo's/Ileus- With significant diarrhea, PCR positive for EPEC, cdiff gene positive, toxin negative but treating empirically regardless. Initially required ICU for Levophed, then quickly weaned off. CT with colitis and dilated colon now improving on subsequent KUBs but bowel dilatation still notable on 09/10. Finished a 3 day course of IV ceftriaxone for EPEC as per ID recommendation. With ongoing loose stools and abd distension continuing to improve. Was on TPN x 3 days, now tolerating low fiber diet with improving intake. Appreciate GI consultation-recommends against any antimotility meds -received high dose oral vanco 500mg po qid and IV Flagyl x 10 days and now de- escalated to vancomycin 125 mg po qid x 4 more days through 09/15 as per ID -avoid meds that can cause ileus-dcd home baclofen, trospium, and recommend discontinuing Mounjaro after discharge -follow CBC, BMP, mag in the a.m. and keep electrolytes replete - Encourage PT/OT/mobility - Added trial of cholestyramine 4 g p.o. daily to thicken up his stool #Acute respiratory failure w/ hypoxemia/Acute on chronic HFpEF/LINDSAY/COPD-Had resp distress and required BiPAP, was hypoxemic-likely due to acute on chronic HFpEF. Chest X-ray consistent with volume overload. Lasix initiated x 2 doses and now started on Bumex 2 mg p.o. daily. BPs were elevated and now improved, still requiring supplemental O2 but now weaned to 1 LNC O2. Still has dyspnea with exertion but improving. CXR 09/12 with less fluid overload, pl effusions smaller. Discontinued Carias catheter 12/18 and he is incontinent to urine but voiding completely. Weight is down 7 kilograms, back to his baseline weight or less -strict I/Os, daily weights, low sodium diet -Continue home bumex 2 mg po daily -continue CPAP hs-he has been unable to tolerate this but able to tolerate 1 ho ur on the night of 07/15-Will try to wear it longer for 09/15 -continue albuterol nebs prn -continue home maintenance inhaler (Stiolto), home Singulair, Claritin -follow CXR periodically until resolution #Hypokalemia/Hypophosphatemia/Hypomagnesemia-all low from GI losses, poor po intake--> much improved now with aggressive replacement, TPN, increasing po intake. Mag still not optimal given ongoing diarrhea -give 2 grams IV Mag to optimize mag to 2.0 - increase potassium chloride to 20 mEq p.o. once daily -follow BMP, Mag in AM #Hyponatremia-sodium down to 131 secondary to volume overload and now improving with diuresis - Continue with Bumex - Follow BMP #Acute metabolic encephalopathy- secondary to septic shock, hospital delirium, occasional opioid use, electrolyte abnormalities, immobility, noncompliance with CPAP. Worsened after resuming Lyrica 100 mg daily. Lyrica stopped and now much improved. ABG without CO2 retention on 09/10. He is now completely back to baseline mentation. Still complains of poor sleep -avoid all opioids -replete lytes -supportive care -mobilize with PT/OT -encourage CPAP use - Trial of trazodone 25 mg p.o. at bedtime for sleep #Paroxysmal atrial tachycardia-no further A-tach on tele since 09/09, was asymptomatic with these episodes. Attributed to noncompliance with CPAP and lyte abnormalities. Broke with adenosine with Cardiology. Appreciate Cardio consult -consider EP study as outpt -started diltiazem--> increased dose to 90mg po tid -plan to convert to Cardizem CD on discharge -started metoprolol (after home Coreg held on admission for hypotension)-convert to Toprol XL on dc -f/u Cardio as outpt -encourage CPAP use #KIM- Likely prerenal in the setting of acute illness, now resolved after IVF resuscitation #Type 2 diabetes w/ peripheral neuropathy-follows with Endocrine PA, on Cedricunjaro, A1C excellent at 5.8% - Hold tirzepatide and consider stopping for a while or altogether as can contribute to ileus -Continue Novolog SSI -home pregabalin held on admission--> resumed at lower dose of 100mg po once daily but caused significant lethargy- discontinued Lyrica #Alcohol use disorder -in remission for 4 years, on naltrexone. Drinks 1 glass of wine occasionally. No signs of EtOH withdrawal here -resumed home naltrexone 09/10 #Hypertension/HLD-BPs low on admission and all meds held. Then BPs elevated despite starting dilt and metoprolol for PAT. 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 He is medically stable for discharge - insurance auth for [facility] denied on 09/15-> likely dc to SNF at [facility] on Tuesday or Tuesday Admission and Anticipated Discharge Date Admission Date: September 02, 2025 Subjective Patient reports ongoing loose stool but nursing reports that it is getting less watery. He is tolerating p.o. no nausea. Feels less short of breath. Remains on 2 LNC O2. Reports he did not sleep much last night even with trying Lyrica at bedtime. RN reports that he was up until 3 in the morning and then slept in late this morning. reports he was more lethargic earlier in the morning. He is willing to try trazodone instead for sleep. He wore his CPAP for 1 hour as per nursing. I discussed his care with the medical accounts receivable specialist at his insurance as part of a peer to peer-denial upheld for acute rehab Telemetry with normal sinus rhythm, rates in the 60s to 70s Physical Exam Constitutional: well developed; no acute distress Respiratory: normal respiratory effort; not tachypneic Auscultation: lungs clear to auscultation bilaterally and + diminished lung sounds (At bases bilaterally) Cardiovascular: RRR, no murmur, no edema Gastrointestinal (Abdomen): Inspection/Auscultation: abdomen normal to inspection, + abdomen distended (mild) and normal bowel sounds Percussion/Palpation: abdomen soft Psychiatric: Orientation: alert, oriented x 3 and cooperative Results & Data Results & Data Vital Signs (Past 12 Hours) Vital Signs Temp Pulse Pulse Resp BP Pulse Ox O2 Del Method 09/15/25 10:43 36.8 C 71 16 165/86 H 95 Nasal Cannula 09/15/25 07:09 36.8 C 71 20 137/85 94 Room Air 09/15/25 07:00 72 09/15/25 02:34 36.6 C 65 18 131/66 92 Nasal Cannula O2 Flow Rate 09/15/25 10:43 2 09/15/25 07:09 09/15/25 07:00 09/15/25 02:34 2 Laboratory Results BMP, magnesium reviewed PG Care Time/CCT Total # of Minutes Spent Total Time Spent with Patient: Total time spent is greater than 50% in coordination of care (as documented) at patient's floor/unit and/or counseling patient: Coding Level of Care Code 48179 SUB INP/OBS CARE 2/35MIN Diagnoses Acute hypoxemic respiratory failure J96.01 Acute metabolic encephalopathy G93.41 Ileus K56.7 Enteropathogenic Escherichia coli infection A04.0
[2025-09-15] MEDS: MAGNESIUM CHLORIDE W/CALCIUM 64MG DELAYED REL TAB PO SCH (20:23)
[2025-09-16 06:09] LABS: Hematocrit (blood only) 32.6 % (42.0-52.0); Hemoglobin 11.2 g/dL (14.0-18.0); Immature Granulocytes # (auto) 0.06 K/uL (0.01-0.20); Immature Granulocytes % (auto) 0.6 %; Mean Corpuscular Hemoglobin 29.2 pg (25.0-34.0); Mean Corpuscular Volume 85.1 fL (80.0-100.0); Platelet Count 442 K/uL (130-400); RDW Standard Deviation 43.9 fL (36.4-46.3); Red Blood Count 3.83 M/uL (4.70-6.10); White Blood Count 10.21 K/ul (4.8-10.8)
[2025-09-16 06:32] LABS: Anion Gap 5.0 (3-11); Blood Urea Nitrogen 10.0 mg/dl (6-23); Calcium 8.1 mg/dl (8.6-10.3); Carbon Dioxide 29.0 mmol/L (21-32); Chloride 102.0 mmol/L (98-107); Creatinine Clr Calc Pharmacy 110.3 ml/min; Glucose 183.0 mg/dl (70-99(Fasting)); Magnesium 1.9 mg/dl (1.7-2.4); Potassium 4.1 mmol/L (3.5-5.1); Sodium 136.0 mmol/L (136-145)
--- NOTE | 2025-09-16 11:36 | Hospitalist Progress Note ---
Date of Service September 16, 2025 Assessment & Plan (1) Acute hypoxemic respiratory failure: (2) Acute metabolic encephalopathy: (3) Ileus: (4) Enteropathogenic Escherichia coli infection: Plan This pt is a 79 yo male with a h/o chronic HFpEF, HTN, HLD, TAA, peripheral neuropathy, DMII, COPD, GERD, previous AUD now on naltrexone, chronic pain, migraines, LINDSAY on CPAP, urinary incontinence, prostate CA s/p prostatectomy, here with septic and hypovolemic shock from severe E. coli and C. diff induced colitis as well as an ileus and acute metabolic encephalopathy, PAT. #Septic shock/Acute Colitis/Gustavo's/Ileus- With significant diarrhea, PCR positive for EPEC, cdiff gene positive, toxin negative but treating empirically regardless. Initially required ICU for Levophed, then quickly weaned off. CT with colitis and dilated colon now improving on subsequent KUBs but bowel dilatation still notable on 09/10. Finished a 3 day course of IV ceftriaxone for EPEC as per ID recommendation. With ongoing loose stools and abd distension continuing to improve. Was on TPN x 3 days, now tolerating low fiber diet with improving intake. Appreciate GI consultation-recommends against any antimotility meds -received high dose oral vanco 500mg po qid and IV Flagyl x 10 days and now de- escalated to vancomycin 125 mg po qid x 4 more days through 09/15 as per ID -avoid meds that can cause ileus-dcd home baclofen, trospium, and recommend discontinuing Mounjaro after discharge -follow CBC, BMP, mag in the a.m. and keep electrolytes replete - Encourage PT/OT/mobility - Trial of cholestyramine 4 g p.o. daily to thicken up his stool, day 2 today - Sepsis has resolved, supportive care with [place]leus/[place] - Awaiting [facility] rehab #Acute respiratory failure w/ hypoxemia/Acute on chronic HFpEF/LINDSAY/COPD-Had resp distress and required BiPAP, was hypoxemic-likely due to acute on chronic HFpEF. Chest X-ray consistent with volume overload. Lasix initiated x 2 doses and now started on Bumex 2 mg p.o. daily. BPs were elevated and now improved, still requiring supplemental O2 but now weaned to 1 LNC O2. Still has dyspnea with exertion but improving. CXR 09/12 with less fluid overload, pl effusions smaller. Discontinued Carias catheter 09/12 and he is incontinent to urine but voiding completely. Weight is down 7 kilograms, back to his baseline weight or less -strict I/Os, daily weights, low sodium diet -Continue home bumex 2 mg po daily -continue CPAP hs-he has been unable to tolerate this but able to tolerate 1 hour on the night of 09/14-Will try to wear it longer moderate progress thus far -continue albuterol nebs prn -continue home maintenance inhaler (Stiolto), home Singulair, Claritin -follow CXR periodically until resolution #Hypokalemia/Hypophosphatemia/Hypomagnesemia-all low from GI losses, poor po intake--> much improved now with aggressive replacement, TPN, increasing po intake. Mag still not optimal given ongoing diarrhea -give 2 grams IV Mag to optimize mag to 2.0 - increase potassium chloride to 20 mEq p.o. once daily - normalized today, with variable GI losses, daily BMP and Mag as below -follow BMP, Mag in AM #Hyponatremia-sodium down to 131 secondary to volume overload and now improving with diuresis - Continue with Bumex, stable - Follow BMP #Acute metabolic encephalopathy #Hx of wernicke korsacofff - secondary to septic shock, hospital delirium, occasional opioid use, electrolyte abnormalities, immobility, noncompliance with CPAP. Worsened after resuming Lyrica 100 mg daily. Lyrica stopped and now much improved. ABG without CO2 retention on 09/10. He is now completely back to baseline mentation. Still complains of poor sleep -avoid all opioids -replete lytes -supportive care -mobilize with PT/OT -encourage CPAP use - Trial of trazodone 25 mg p.o. at bedtime for sleep. #Paroxysmal atrial tachycardia-no further A-tach on tele since 09/09, was asymptomatic with these episodes. Attributed to noncompliance with CPAP and lyte abnormalities. Broke with adenosine with Cardiology. Appreciate Cardio consult -consider EP study as outpt -started diltiazem--> increased dose to 90mg po tid -plan to convert to Cardizem CD on discharge -started metoprolol (after home Coreg held on admission for hypotension)-convert to Toprol XL on dc, tolerating well -f/u Cardio as outpt -encourage CPAP use #KIM- Likely prerenal in the setting of acute illness, now resolved after IVF resuscitation #Type 2 diabetes w/ peripheral neuropathy-follows with Endocrine PA, on Mounjaro, A1C excellent at 5.8% - Hold tirzepatide and consider stopping for a while or altogether as can contribute to ileus -Continue Novolog SSI -home pregabalin held on admission--> resumed at lower dose of 100mg po once daily but caused significant lethargy- discontinued Lyrica - at goal #Alcohol use disorder -in remission for 4 years, on naltrexone. Drinks 1 glass of wine occasionally. No signs of EtOH withdrawal here -resumed home naltrexone 09/10 #Hypertension/HLD-BPs low on admission and all meds held. Then BPs elevated despite starting dilt and metoprolol for PAT. 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 He is medically stable for discharge - insurance auth for [facility] denied on 09/15-> likely dc to SNF at [facility] on Tuesday or Tuesday Admission and Anticipated Discharge Date Admission Date: September 02, 2025 Subjective Doing okay this morning. No significant abdominal pain or discomfort. Still having moderate amount of stool output but he is not certain entirely how much. No new complaints or concerns. Sleeping okay but not as well as would be typical. He has good recall of recent and distant events. We discussed [facility] placement for strengthening and rehab. He has had a good experience in the past and looks forward to going down there again. Physical Exam Constitutional: well developed; no acute distress Respiratory: normal respiratory effort; not tachypneic Auscultation: lungs clear to auscultation bilaterally and + diminished lung sounds (At bases bilaterally) Cardiovascular: RRR, no murmur, no edema Gastrointestinal (Abdomen): Inspection/Auscultation: abdomen normal to inspection (Nontender), + abdomen distended (mild) and normal bowel sounds Percussion/Palpation: abdomen soft Psychiatric: Orientation: alert, oriented x 3 and cooperative Results & Data Results & Data Vital Signs (Past 12 Hours) Vital Signs Temp Pulse Resp BP Pulse Ox O2 Del Method 09/16/25 10:46 Room Air 09/16/25 07:12 36.6 C 73 20 177/83 H 92 Room Air 09/16/25 02:36 37.5 C 75 22 137/71 97 Room Air Laboratory Results 09/16/25 09/16/25 09/16/25 11:21 07:09 05:30 WBC 10.21 RBC 3.83 L Hgb 11.2 L Hct 32.6 L MCV 85.1 MCH 29.2 MCHC 34.4 RDW Std Deviation 43.9 RDW Coeff of Roni 14.3 Plt Count 442 H MPV 9.9 Immature Gran % (Auto) 0.6 Neut % (Auto) 67.4 Lymph % (Auto) 17.7 [place] % (Auto) 9.3 Eos % (Auto) 3.9 Baso % (Auto) 1.1 Neut # (Auto) 6.88 H Lymph # (Auto) 1.81 [place] # (Auto) 0.95 H Eos # (Auto) 0.40 Baso # (Auto) 0.11 Immature Gran # (Auto) 0.06 Sodium 136 Potassium 4.1 Chloride 102 Carbon Dioxide 29 Anion Gap 5 BUN 10 Creatinine 0.57 L Est Cr Clr Drug Dosing 110.3 eGFR 100.35 BUN/Creatinine Ratio 17.5 Glucose 183 H POC Glucose 171 H 180 H Calcium 8.1 L Magnesium 1.9 09/15/25 09/15/25 09/15/25 20:41 16:02 11:28 WBC RBC Hgb Hct MCV MCH MCHC RDW Std Deviation RDW Coeff of Roni Plt Count MPV Immature Gran % (Auto) Neut % (Auto) Lymph % (Auto) [place] % (Auto) Eos % (Auto) Baso % (Auto) Neut # (Auto) Lymph # (Auto) [place] # (Auto) Eos # (Auto) Baso # (Auto) Immature Gran # (Auto) Sodium Potassium Chloride Carbon Dioxide Anion Gap BUN Creatinine Est Cr Clr Drug Dosing eGFR BUN/Creatinine Ratio Glucose POC Glucose 150 H 171 H 156 H Calcium Magnesium PG Care Time/CCT Total # of Minutes Spent Total Time Spent with Patient: Total time spent is greater than 50% in coordination of care (as documented) at patient's floor/unit and/or counseling patient: Coding Level of Care Code 96651 SUB INP/OBS CARE 2/35MIN Diagnoses Acute hypoxemic respiratory failure J96.01 Acute metabolic encephalopathy G93.41 Ileus K56.7 Enteropathogenic Escherichia coli infection A04.0
[2025-09-17 07:00] VITALS: TEMP 97.7
[2025-09-17 10:50] VITALS: BP 130/79; PULSE 70; RESP 18; O2SAT 93
--- NOTE | 2025-09-17 12:34 | Discharge Summary ---
Discharge Summary Date of Service September 17, 2025 Principal Dx & Hospital Course #1 = Principal Diagnosis (1) Acute hypoxemic respiratory failure: (2) Acute metabolic encephalopathy: (3) Ileus: (4) Enteropathogenic Escherichia coli infection: Plan This pt is a 79 yo male with a h/o chronic HFpEF, HTN, HLD, TAA, peripheral neuropathy, DMII, COPD, GERD, previous AUD now on naltrexone, chronic pain, migraines, LINDSAY on CPAP, urinary incontinence, prostate CA s/p prostatectomy, here with septic and hypovolemic shock from severe E. coli and C. diff induced colitis as well as an ileus and acute metabolic encephalopathy, PAT. #Septic shock/Acute Colitis/Gustavo's/Ileus- With significant diarrhea, PCR positive for EPEC, cdiff gene positive, toxin negative but treating empirically regardless. Initially required ICU for Levophed, then quickly weaned off. CT with colitis and dilated colon now improving on subsequent KUBs but bowel dilatation still notable on 09/10. Finished a 3 day course of IV ceftriaxone for EPEC as per ID recommendation. With ongoing loose stools and abd distension continuing to improve. Was on TPN x 3 days, now tolerating low fiber diet with improving intake. Appreciate GI consultation-recommends against any antimotility meds -received high dose oral vanco 500mg po qid and IV Flagyl x 10 days and now de- escalated to vancomycin 125 mg po qid x 4 more days through 09/15 as per ID -avoid meds that can cause ileus-dcd home baclofen, trospium, and recommend discontinuing Mounjaro after discharge - Encourage PT/OT/mobility - Trial of cholestyramine 4 g p.o. daily to thicken up his stool, day 3 today (09/17), so far good response - Sepsis has resolved, supportive care with Ileus/Gustavo - Transfer to [facility], expect [facility] term Rehab stay with DC to home #Acute respiratory failure w/ hypoxemia/Acute on chronic HFpEF/LINDSAY/COPD-Had resp distress and required BiPAP, was hypoxemic-likely due to acute on chronic HFpEF. Chest X-ray consistent with volume overload. Lasix initiated x 2 doses and now started on Bumex 2 mg p.o. daily. BPs were elevated and now improved, still requiring supplemental O2 but now weaned to 1 LNC O2. Still has dyspnea with exertion but improving. CXR 09/12 with less fluid overload, pl effusions smaller. Discontinued Carias catheter 09/12 and he is incontinent to urine but voiding completely. Weight is down 7 kilograms, back to his baseline weight or less -strict I/Os, daily weights, low sodium diet -Continue home bumex 2 mg po daily -continue CPAP hs-he has been unable to tolerate this but able to tolerate 1 hour on the night of 09/14-Will try to wear it longer moderate progress thus far -continue albuterol nebs prn -continue home maintenance inhaler (Stiolto), home Singulair, Claritin -follow CXR periodically until resolution #Hypokalemia/Hypophosphatemia/Hypomagnesemia-all low from GI losses, poor po intake--> much improved now with aggressive replacement, TPN, increasing po intake. Mag still not optimal given ongoing diarrhea -give 2 grams IV Mag to optimize mag to 2.0 - increase potassium chloride to 20 mEq p.o. once daily - normalized today, with variable GI losses, daily BMP and Mag as below - Routine monitoring if GI losses require, stable for the last several days #Hyponatremia-sodium down to 131 secondary to volume overload and now improving with diuresis - Continue with Bumex, has normalized and has been stable for several days #Acute metabolic encephalopathy #Hx of wernicke korsacofff - secondary to septic shock, hospital delirium, occasional opioid use, electrolyte abnormalities, immobility, noncompliance with CPAP. Worsened after resuming Lyrica 100 mg daily. Lyrica stopped and now much improved. ABG without CO2 retention on 09/10. He is now completely back to baseline mentation. Still complains of poor sleep -avoid all opioids -replete lytes as needed -supportive care -mobilize with PT/OT -encourage CPAP use -Trial of trazodone 25 mg p.o. at bedtime for sleep. #Paroxysmal atrial tachycardia-no further A-tach on tele since 09/09, was asymptomatic with these episodes. Attributed to noncompliance with CPAP and lyte abnormalities. Broke with adenosine with Cardiology. Appreciate Cardio consult -consider EP study as outpt -started diltiazem--> increased dose to 90mg po tid -plan to convert to Cardizem CD on discharge -started metoprolol (after home Coreg held on admission for hypotension)-convert to Toprol XL on dc, tolerating well -f/u Cardio as outpt -encourage CPAP use #KIM- Likely prerenal in the setting of acute illness, now resolved after IVF resuscitation #Type 2 diabetes w/ peripheral neuropathy-follows with Endocrine SEMAJ, on Mounjaro, A1C excellent at 5.8% - Hold tirzepatide and consider stopping for a while or altogether as can contribute to ileus -Continue Novolog SSI -home pregabalin held on admission--> resumed at lower dose of 100mg po once daily but caused significant lethargy- discontinued Lyrica - at goal #Alcohol use disorder -in remission for 4 years, on naltrexone. Drinks 1 glass of wine occasionally. No signs of EtOH withdrawal here -resumed home naltrexone 09/10 #Hypertension/HLD-BPs low on admission and all meds held. Then BPs elevated despite starting dilt and metoprolol for PAT. Resumed terazosin and increased dilt dose-became hypotensive-terazosin stopped -Continue dilt 90mg po tid and eventually convert to long acting -continue metoprolol 50mg po bid and convert to XL on discharge -Continue to hold home terazosin 10mg po hs -may need to resume at lower dose if has issues with urine retention after Carias removed -continue home Zetia #Chronic migraine-no acute issues - Home topiramate on hold since admission-unclear reason -plan to resume in in the future but will hold off for now due to lethargy as topiramate can also cause BOTTLE CASER depression #Thoracic aortic aneurysm-ECHO ordered by Cardio shows TAA 4.3 cm -continue good BP control and annual surveillance #GERD-no acute issues -cont home po PPI Admission HPI Per Admitting Provider 79-year-old male history of ischemic cardiomyopathy, PAD, COPD with emphysema, thoracic aortic aneurysm, LINDSAY, degenerative back disease, history of recurrent multifocal pneumonia, HFpEF, hypertension with labile blood pressures, history of alcohol dependence, migraine presents with abrupt onset confusion, weakness, altered mental status. Per his he was at his normal baseline of health yesterday had an uneventful day. Through the night woke up through the night 1 time to urinate. Got back to bed had made some moaning and groaning sounds to which his checked on him to see if he was a. A couple of hours later at 5 AM she noticed to try to get up to go to the bathroom but was unable to do so independently. At that time he had a diarrhea type stool. She thought maybe more red to dark but this was different and new for him. At that time did not note a fever chills or other generalized signs of illness. He was so weak that he was unable to get himself independently back to bed. Second this EMS was contacted to bring him into the emergency department for evaluation EMS noted him to be febrile to 102, hypotensive, hypoxemic. He was placed on 3 L nasal cannula brought to the emergency department for evaluation. Comprehensive source evaluation for fever/altered mental status showed no clear source including CT of the abdomen and chest. He was hypotensive. He was given a total of 2.5 L crystalloid for volume expansion met the 30/kg sepsis load. He was started on vancomycin and cefepime. Still hypotensive and tachycardic despite volume resuscitation as above. Secondary to this Levophed was initiated. He was admitted to the ICU for volume refractory shock, likely infectious/sepsis. Cannot rule out cardiogenic/hypovolemic/anemic shock. Discharge Exam Constitutional: well developed; no acute distress Respiratory: normal respiratory effort; not tachypneic Auscultation: lungs clear to auscultation bilaterally and + diminished lung sounds (At bases bilaterally) Cardiovascular: RRR, no murmur, no edema Gastrointestinal (Abdomen): Inspection/Auscultation: abdomen normal to inspection (Nontender), + abdomen distended (mild) and normal bowel sounds Percussion/Palpation: abdomen soft Psychiatric: Orientation: alert, oriented x 3 and cooperative Discharge Plan Discharge Items Patient Disposition: Transfer Inpatient Rehab Fac Reason For Visit: [employer] Discharge Diagnosis: Enteropathogenic E coli Condition on Discharge: Fair Activity: Per Instructions section Activity Comment: Per PT and OT at Rehab Non-emergency contact: Primary Care Provider, Property Claims Manager and Bottle Caser Call non-emergency contact if: you have any medication questions, your symptoms worsen, your pain is worsening and you have a fever Follow-up/Referrals: Dea Waldron, DARLENE [Primary Care Provider] - Diet: Carb Consistent or DM2 Addtl Attending Provider Instructions: Recheck routine labs, decision on when to resume diuretics, coordinate with GI and Cardiology if needed Stand-Alone Forms: My [facility] Skilled Items Patient informed of condition?: Yes DNR: Yes Discharge Level of Care: Acute rehab Communicable Disease: No Discharge Prognosis: Improving Lines: None Urinary Catheter: No Medications and DC Order Prescriptions: New metoprolol tartrate 50 mg Tablet 50 mg PO BID Qty: 60 0RF diclofenac sodium [Voltaren Arthritis Pain] 1 % Gel 2 g EXT TID Qty: 100 0RF trazodone 50 mg Tablet 25 mg PO HS Qty: 30 0RF potassium chloride 10 mEq Tablet Extended Release 20 meq PO DAILY Qty: 30 0RF calcium carbonate [Tums] 200 mg calcium (500 mg) Tablet,Chewable 1,500 mg PO QAM Qty: 30 0RF pantoprazole 40 mg Tablet,Delayed Release (Dr/Ec) 40 mg PO QAM Qty: 30 0RF diltiazem HCl 30 mg Tablet 90 mg PO TID@0800,1500,2200 Qty: 90 0RF Prevalite 4 gram Powder In Packet 4 g PO DAILY@1000 Qty: 42 0RF Continued baclofen 5 mg tablet 5 mg PO DAILY PRN (Reason: Muscle Spasm) thiamine HCl (vitamin B1) [Vitamin B-1] 100 mg tablet 300 mg PO BID lidocaine 5 % adhesive patch,medicated 1 patch topical DAILY PRN (Reason: Pain) Patient Comments: 12 hrs on and 12 hrs off Rx Instructions: leave on most painful area for up to 12 hrs naltrexone 50 mg tablet 50 mg PO HS bumetanide 1 mg tablet 2 mg PO QAM tiotropium-olodaterol 2.5-2.5 mcg/actuation mist 2 puff inhalation QAM cholecalciferol (vitamin D3) 10 mcg (400 unit) capsule 10 mcg PO DAILY montelukast 10 mg tablet 10 mg PO HS Qty: 90 3RF multivitamin Tablet 1 tab PO QAM loratadine [Claritin] 10 mg Tablet 10 mg PO QAM ezetimibe [Zetia] 10 mg tablet 10 mg PO QAM vitamin E 268 mg (400 unit) Capsule 268 mg PO QAM salicylic acid 3 % shampoo 1 ea topical DAILY PRN (Reason: Other) selenium sulfide 2.5 % lotion 1 applic TOPICAL Q OTHER DAY PRN (Reason: Other) Held pregabalin 225 mg Capsule 225 mg PO BID Hold Instructions: Resume on 09/26/25. topiramate 25 mg tablet 25 mg PO BID Hold Instructions: Resume on 10/02/25. Rx Instructions: Take 25mg by mouth BID (currently listed as Active/Suspended on med list from [facility]) Discontinued Mounjaro 7.5 mg/0.5 mL pen injector 7.5 mg subcut Q7D Qty: 6 3RF Rx Instructions: prior approved from 09/07/24-11/07/25Thursdays trospium 60 mg capsule,extended release 24hr 60 mg PO DAILY Qty: 30 2RF Rx Instructions: must be taken on empty stomach at least 1 hour before a meal/food with water only carvedilol [Coreg] 12.5 mg tablet 12.5 mg PO BID sennosides [Senokot] 8.6 mg tablet 17.2 mg PO HS PRN (Reason: constipation) Rx Instructions: Available [id number]-ldj-glhpslh omeprazole 20 mg Tablet,Delayed Release (Dr/Ec) 40 mg PO QAM clotrimazole 1 % Cream 1 applic TOPICAL BID PRN (Reason: Rash) terazosin 10 mg Capsule 10 mg PO HS clindamycin phosphate 1 % Solution 1 applic TOPICAL BID PRN (Reason: Breakouts) omega 7-msr-mye-fish oil 900-1,400 mg capsule,delayed release(DR/EC) 1 cap PO BID potassium chloride 20 mEq tablet,ER particles/crystals 10 meq PO DAILY Rx Instructions: Per [facility] this is discontinued, spouse states still taking Discharge Orders: Discharge Order (Routine); Ordered 09/17/25 Ordered By: Anup Parkinson/Other Patient Handouts: E. Coli Infection Admission Data Admit Date/Time: 09/02/25 12:24 Attending Provider: Anup Aranda Admit Provider: Anup Aranda Primary Care Provider: Dea Waldron Other Providers: [facility]; Anup Aranda; Vahe Nuñez; Ozzie Aguirre; Joel Pearce Jr; [facility]; [place],[facility] Stay Data Consultations 09/02/25 11:40 ED Decision to Admit Stat 09/02/25 14:13 Consult Cardiology Routine Consult Comptometer Operator Routine 09/03/25 12:07 Consult Infectious Diseases Stat 09/04/25 07:56 Consult Gastroenterology Routine Procedures Performed Operation Date: 09/06/25 16:45 <No data on this case meets the specified criteria> Diagnostic Imagining Performed 09/02/25 10:09 CT Abd and Pelvis [CT abd pelvis IV con only] Stat 09/02/25 10:18 CT for pulmonary embolism PE [CT angio chest PE protocol] Stat 09/03/25 17:44 CT abd pelvis IV con only Urgent 09/04/25 07:00 EP Lab Images for PACS ONCE Discharge Instructions Given to Patient (Per Discharging Provider) Recheck routine labs, decision on when to resume diuretics, coordinate with GI and Cardiology if needed Total Time Total Time Spent Total Time Spent (In Minutes): 45 minutes spent at the bedside discussing results and modifications to care plan with patient. Arrangements for prescription on discharge. Reviewing new medications, discharge planning and follow-up coordination Coding Level of Care Code 83212 INP/OBS DISCH >30 MIN Diagnoses Acute hypoxemic respiratory failure J96.01 Acute metabolic encephalopathy G93.41 Ileus K56.7 Enteropathogenic Escherichia coli infection A04.0
== END 2025-09-17 13:28 | DRG 871 ==
LOC: ED 10:03 → 1E 12:24 → SUATTDRO 12:24 → 1E 13:05 → 2E 09-06 11:45